=== PATIENT | female | born 1950 | race Caucasian/White ===

== ENCOUNTER → 2017-04-06 | Outpatient (CLI) | payer MEDICARE ==
[~2017-04-06] MED LIST: ALBU17I INH; COMBAER INH; DUONI NEB; FLUTI110I INH; PROM25TA5 PO
[2017-04-06 09:11] LABS: BLOOD GAS BASE EXCESS 3.4 mmol/L (-2-2); BLOOD GAS CARBOXYHEMOGLOBIN 3.8 % (0-4); BLOOD GAS HCO3 27 mmol/L (22-26); BLOOD GAS METHEMOGLOBIN 1.1 % (0-2); BLOOD GAS O2 HGB SATURATION 92 % (90-100); BLOOD GAS OXYGEN CONTENT 18.8 Vol % (12.0-20.0); BLOOD GAS PCO2 39 mmHG (38-42); BLOOD GAS PO2 85 mmHG (61-120); BLOOD GAS TOTAL HGB 14.4 G/DL (12.0-16.0); CRITICAL VALUE NO; DRAW SITE LT RADIAL; FIO2 21 %; NUMBER OF ARTERIAL PUNCTURES 1; STAT NO; TEMP CORR TO 98.6; ULNAR PULSE PRESENT
--- NOTE | 2017-04-10 10:36 | RSPPFT ---
DATE OF PROCEDURE: 04/06/17 COMMENTS: Spirometry shows FVC of 1.6 at 51% of predicted, FEV1 of 0.5 at 20%, FEV1/FVC ratio is decreased. Flow is decreased at FEF 25, FEF 50, FEF 75 and FEF 25-75. There is a paradoxical response after bronchodilator treatment. Lung volumes show residual volume is decreased. TLC is decreased. Diffusion capacity is severely decreased. Flow volume indicates an obstructive pattern. Room air arterial blood gases show pH of 7.4, PCO2 of 79, PO2 of 85, BiCarb of 27, O2 Saturation at 92%. IMPRESSION: 1. Severe obstructive lung disease. 2. Paradoxical response to bronchodilator treatment. 3. Decreased lung volumes indicating addition mild restrictive lung disease. 4. Severe loss in diffusion capacity. 5. Blood gases show normal oxygenation on room air.
== END ==
LOC: PHRSP 08:33
PROVIDERS: ATTEND Specialist
DX: J44.9 Chronic obstructive pulmonary disease, unspecified (principal)
CPT/HCPCS: 36600; 82805; 94060; 94729

== ENCOUNTER 2017-06-13 15:50 | Inpatient (IN) | payer MEDICARE ==
[~2017-06-13] VITALS: Ht 167.6 cm; Wt 73.6 kg
[2017-06-13 15:54] VITALS: BP 155/82; PULSE 133; RESP 18; TEMP 98.1; O2SAT 98
[2017-06-13 18:08] LABS: AUTOMATED NEUTROPHIL # 14.9 TH/MM3 (1.8-7.7); BASOPHIL % 0.2 % (0.0-2.0); HEMATOCRIT 43.3 % (35.0-46.0); HEMOGLOBIN 14.8 GM/DL (11.6-15.3); LYMPH % 3.8 % (9.0-44.0); LYMPHOCYTE # 0.6 TH/MM3 (1.0-4.8); MEAN CELL VOLUME 89.3 FL (80.0-100.0); MEAN CORPUSCULAR HEMOGLOBIN 30.6 PG (27.0-34.0); MEAN CORPUSCULAR HGB CONC 34.2 % (32.0-36.0); MEAN PLATELET VOLUME 7.2 FL (7.0-11.0); MONO % 4.3 % (0.0-8.0); MONOCYTE # 0.7 TH/MM3 (0-0.9); NEUT % 91.7 % (16.0-70.0); PLATELET COUNT 267 TH/MM3 (150-450); RED BLOOD COUNT 4.84 MIL/MM3 (4.00-5.30); RED CELL DISTRIBUTION WIDTH 14.8 % (11.6-17.2); WHITE BLOOD COUNT 16.2 TH/MM3 (4.0-11.0)
[2017-06-13 18:26] LABS: PROTHROMBIN TIME - PATIENT 9.7 SEC (9.8-11.6)
[2017-06-13 18:34] LABS: AST (GOT) 13 U/L (15-37); BICARBONATE 26.3 MEQ/L (21.0-32.0); BLOOD UREA NITROGEN 32 MG/DL (7-18); CALCIUM 8.9 MG/DL (8.5-10.1); CHLORIDE 103 MEQ/L (98-107); CREATININE 0.84 MG/DL (0.50-1.00); GLOMERULAR FILTRATION RATE 68 ML/MIN (>89); GLUCOSE,RANDOM 249 MG/DL (74-106); SODIUM (NA) 137 MEQ/L (136-145)
[2017-06-13 18:35] LABS: ALT (GPT) 29 U/L (10-53)
[2017-06-13 18:37] LABS: ALKALINE PHOSPHATASE 99 U/L (45-117); TOTAL BILIRUBIN ADULT 0.4 MG/DL (0.2-1.0); TOTAL PROTEIN 6.6 GM/DL (6.4-8.2)
[2017-06-13 19:01] LABS: BANDS 5 % (0-6); LYMPHOCYTES 5 % (9-44); METAMYELOCYTES 1 % (0-1); MONOCYTES 6 % (0-8); MYELOCYTES 1 % (0-0); NEUTROPHIL # MANUAL DIFF 14.4 TH/MM3 (1.8-7.7); POLYS (SEG NEUTROPHILS) 82 % (16-70)
[2017-06-13 19:03] LABS: ACANTHOCYTES OCC (NORMAL)
[2017-06-13] MEDS ORDERED: IPRAAER INH (19:17)
[2017-06-13] MEDS ORDERED: SYMB80AE INH (19:17)
[2017-06-13] MEDS ORDERED: PRED20 PO (19:17)
[2017-06-13] MEDS ORDERED: PENI250T PO (19:31)
[2017-06-13] MEDS ORDERED: SODIUM CHLOR 0.9% 1000 ML INJ 1,000 ML IV ONE (20:00)
[2017-06-13] MEDS ORDERED: KETOROLAC TROMETHAMINE 30 MG/ML (IVP) VIAL IV PUSH ONE (20:00)
--- NOTE | 2017-06-13 20:01 | PD ---
HPI Chief Complaint: Skin Problem Time Seen by Provider: 19:39 Travel History International Travel<30 days: No Contact w/Intl Traveler<30days: No Traveled to known affect area: No History of Present Illness HPI 66-year-old female with PMH of A. fib, COPD presents to the ED for evaluation of 3 day history of increased pain, redness, foul smell of chronic wounds of her right lower leg. She states that she had 2 large blisters in the area that popped about 2 months ago. She denies fever, chills, nausea, vomiting, numbness , tingling, weakness, limitations to range of motion of the extremity. She denies history of MRSA. She endorses history of long-term prednisone use. She states that the PA at her primary care's office has been helping her to take care of them. She had an appointment with wound care nurses today who advised her to come to the ED. PFSH Past Medical History Asthma: Yes Atrial Fibrillation: Yes Autoimmune Disease: No Cancer: Yes (lumpectmy 1993 right breast) Cardiovascular Problems: No Chemotherapy: Yes (1993) COPD: Yes Diminished Hearing: No Endocrine: No Genitourinary: Yes Kidney Stones: Yes Musculoskeletal: No Neurologic: No Reproductive: No Respiratory: Yes Radiation Therapy: Yes Tetanus Vaccination: > 5 Years Influenza Vaccination: No ?: Not Menopausal: Yes : 3 Para: 2 Miscarriage: 1 Tubal Ligation: Yes (1977) Past Surgical History Abdominal Surgery: Yes (BOWEL OBSTRUCTION-RESECTION R/T ADHESIONS/SCAR TISSUE) Appendectomy: Yes Gynecologic Surgery: Yes (RIGHT BREAST LUMPECTOMY 1995 ) Oral Surgery: Yes (TONSILLECTOMY ) Other Surgery: Yes (Bowel resection 2007) Social History Alcohol Use: No Tobacco Use: Yes (5 per day) Substance Use: No Allergies-Medications (Allergen,Severity, Reaction): Coded Allergies: codeine (Verified Allergy, Severe, 06/13/17) morphine (Unverified Allergy, Severe, Anaphylaxis, 01/04/17) sulfamethoxazole (Verified Allergy, Severe, 06/13/17) trimethoprim (Verified Allergy, Severe, 06/13/17) Reported Meds & Prescriptions Reported Meds & Active Scripts Active Reported Penicillin V Potassium 250 Mg Tab 250 Mg PO Q8H Prednisone 20 Mg Tab 20 Mg PO BID Symbicort Inh (Budesonide/Formoterol Fumarate) 80-4.5 Mcg/Act Aero 2 Puff INH Q12HR Combivent Respimat Inh (Ipratropium-Albuterol Inh) 20-100 Residential/Act Aero 1 Puff INH QID Review of Systems Except as stated in HPI: all other systems reviewed are Neg Physical Exam Narrative GENERAL: Well-nourished, well-developed white female in no acute distress. SKIN: Focused skin assessment warm/dry. There is chronic edema and skin changes in the bilateral lower extremities. 2 x 8+ centimeter wounds of the right lower leg that are tender, erythematous, foul smelling, draining serosanguineous and purulent fluid. The central areas of both wounds are necrotic. HEAD: Normocephalic. EYES: No scleral icterus. No injection or drainage. NECK: Supple, trachea midline. No JVD or lymphadenopathy. CARDIOVASCULAR: Irregularly irregular rate and rhythm without murmurs, gallops, or rubs. RESPIRATORY: Breath sounds equal bilaterally. Mild end expiratory wheezing bilaterally. No accessory muscle use. GASTROINTESTINAL: Abdomen soft, non-tender, nondistended. MUSCULOSKELETAL: No cyanosis, or edema. Dopplerable DP and PT pulses in the lower extremities bilaterally. BACK: Nontender without obvious deformity. No CVA tenderness. Data Data Last Documented VS Vital Signs Date Time Temp Pulse Resp B/P (MAP) Pulse Ox O2 Delivery O2 Flow Rate FiO2 06/13/17 15:54 98.1 133 18 155/82 (106) 98 Room Air Orders Orders Electrocardiogram (06/13/17 ) Complete Blood Count With Diff (06/13/17 16:13) Comprehensive Metabolic Panel (06/13/17 16:13) Act Partial Throm Time (Ptt) (06/13/17 16:13) Prothrombin Time / Inr (Pt) (06/13/17 16:13) Sepsis Workup Initiated (06/13/17 ) Lactic Acid Sepsis Protocol (06/13/17 19:57) Blood Culture (06/13/17 19:57) Wound Culture And Gram Stain (06/13/17 19:57) Blood Glucose (06/13/17 19:57) Ecg Monitoring (06/13/17 19:57) Iv Access Insert/Monitor (06/13/17 19:57) Oximetry (06/13/17 19:57) Sodium Chlor 0.9% 1000 Ml Inj (Ns 1000 M (06/13/17 20:00) Ketorolac Inj (Toradol Inj) (06/13/17 20:00) Piperacil-Tazo 4.5 Gm Premix (Zosyn 4.5 (06/13/17 20:13) Vancomycin Inj (Vancomycin Inj) (06/13/17 20:13) Consult General Surgery (06/13/17 ) Admit Order (Ed Use Only) (06/13/17 20:17) Labs Laboratory Tests Test 06/13/17 17:41 White Blood Count 16.2 TH/MM3 Red Blood Count 4.84 MIL/MM3 Hemoglobin 14.8 GM/DL Hematocrit 43.3 % Mean Corpuscular Volume 89.3 FL Mean Corpuscular Hemoglobin 30.6 PG Mean Corpuscular Hemoglobin Concent 34.2 % Red Cell Distribution Width 14.8 % Platelet Count 267 TH/MM3 Mean Platelet Volume 7.2 FL Neutrophils (%) (Auto) 91.7 % Lymphocytes (%) (Auto) 3.8 % Monocytes (%) (Auto) 4.3 % Eosinophils (%) (Auto) 0.0 % Basophils (%) (Auto) 0.2 % Neutrophils # (Auto) 14.9 TH/MM3 Lymphocytes # (Auto) 0.6 TH/MM3 Monocytes # (Auto) 0.7 TH/MM3 Eosinophils # (Auto) 0.0 TH/MM3 Basophils # (Auto) 0.0 TH/MM3 CBC Comment AUTO DIFF Differential Total Cells Counted 100 Neutrophils % (Manual) 82 % Band Neutrophils % 5 % Lymphocytes % 5 % Monocytes % 6 % Neutrophils # (Manual) 14.4 TH/MM3 Metamyelocytes 1 % Myelocytes 1 % Differential Comment FINAL DIFF MANUAL Platelet Estimate NORMAL Platelet Morphology Comment NORMAL Acanthocytes OCC Prothrombin Time 9.7 SEC Prothromb Time International Ratio 1.0 RATIO Activated Partial Thromboplast Time 20.8 SEC Blood Urea Nitrogen 32 MG/DL Creatinine 0.84 MG/DL Random Glucose 249 MG/DL Total Protein 6.6 GM/DL Albumin 3.0 GM/DL Calcium Level 8.9 MG/DL Alkaline Phosphatase 99 U/L Aspartate Amino Transf (AST/SGOT) 13 U/L Alanine Aminotransferase (ALT/SGPT) 29 U/L Total Bilirubin 0.4 MG/DL Sodium Level 137 MEQ/L Potassium Level 4.8 MEQ/L Chloride Level 103 MEQ/L Carbon Dioxide Level 26.3 MEQ/L Anion Gap 8 MEQ/L Estimat Glomerular Filtration Rate 68 ML/MIN MDM Medical Decision Making Medical Screen Exam Complete: Yes Emergency Medical Condition: Yes Differential Diagnosis Cellulitis versus abscess versus osteomyelitis versus sepsis versus other Narrative Course 66-year-old female with PMH of A. fib, COPD presents to the ED for evaluation of 3 day history of increased pain, redness, foul smell of chronic wounds of her right lower leg. She states that she had 2 large blisters in the area that popped about 2 months ago. She suspects this may be secondary to long-term prednisone use. She denies history of MRSA. She is been being followed by the PA at her primary care's office but follow wound care nurse today who advised her to come to the ED. Patient's tachycardic on presentation. Physical exam reveals 2 large necrotic wounds of the right lower extremity. There are erythematous, tender, foul smelling, weeping purulent and serosanguineous fluid. Patient has dopplerable DP and PT pulses bilaterally. Additionally the patient has tight breath sounds with diffuse wheezing in all lung farrell. Patient was administered IV Solu-Medrol and DuoNeb 3. Blood cultures and wound cultures were obtained The patient was administered IV vancomycin and Zosyn. Gen. surgery consult was placed. CBC reveals a leukocytosis of 16.2 with a left shift. BUN 32, creatinine 84. Lactic acid 1.8. I spoke with Dr. Blank. He evaluated the patient in the ED. He agrees to accept the patient to the medicine service under Dr. Eason. I discussed this plan with the patient and her who are agreeable. Please see medicine notes for disposition. Taty Whyte Jun 13, 2017 20:01
[2017-06-13] MEDS ORDERED: VANCOMYCIN INJ 1,000 MG in SODIUM CHLOR 0.9% 250 ML INJ 250 ML IV STA (20:13)
[2017-06-13] MEDS ORDERED: PIPERACIL-TAZO 4.5 GM PREMIX 100 ML IV STA (20:13)
[2017-06-13] MEDS ORDERED: SODIUM CHLOR 0.9% 1000 ML INJ 1,000 ML IV SCH (20:30)
[2017-06-13] MEDS ORDERED: DIPHTH/TETANUS/ACEL PERTUSSIS (BOOSTER) 0.5 ML VIAL/PFS IM ONE (20:30)
[2017-06-13] MEDS ORDERED: Vancomycin Consult Pharmacy 1 EA OTHER SCH (20:30)
[2017-06-13] MEDS ORDERED: methylPREDNISolone SOD SUCC 125 MG/2 ML VIAL IV PUSH ONE (20:45)
[2017-06-13] MEDS: RESP: ALBUTEROL 2.5 MG/IPRATROPIUM 0.5 MG NEB (SCH) INH (20:52)
[2017-06-13 20:58] VITALS: O2SAT 97
[2017-06-13] MEDS ORDERED: GLUCAGON 1 MG/ML VIAL OTHER PRN (21:00)
[2017-06-13] MEDS ORDERED: DEXTROSE 50% IN WATER 50 ML VIAL(D50) IV PUSH PRN (21:00)
[2017-06-13] MEDS: REMOVE OLD PATCH T-DERMAL SCH (21:00)
--- NOTE | 2017-06-13 21:09 | EKG ---
Date Performed: 06/13/2017 Time Performed: 17:47:17 PTAGE: 66 years EKG: SINUS TACHYCARDIA BORDERLINE LEFT AXIS DEVIATION ABNORMAL RHYTHM ECG PREVIOUS TRACING : 05/29/2013 16.52 Since previous tracing rate faster DOCTOR: Mag Barbosa Interpretating Date/Time 06/13/2017 21:07:41
[2017-06-13] MEDS: RESP: ALBUTEROL 2.5 MG/IPRATROPIUM 0.5 MG NEB (SCH) NEB (21:18)
--- NOTE | 2017-06-13 21:26 | RADRPT ---
EXAM DATE/TIME: 06/13/2017 20:40 [facility] COMPARISON: No previous studies available for comparison. INDICATIONS : Right leg wound. Possible ulcer on lateral side. MEDICAL HISTORY : Chronic obstructive pulmonary disease. A-fib. Hx breast cancer. SURGICAL HISTORY : Tonsillectomy. Appendectomy. Bowel resection. Right breast lumpectomy. ENCOUNTER: Initial ACUITY: 1 month PAIN SCORE: 10/10 LOCATION: Right lower leg. FINDINGS: Two view examination of the right tibia demonstrates no evidence of fracture or dislocation. Bony mi neralization is normal. The soft tissue structures are ulcerated laterally CONCLUSION: 1. Ulceration at the lateral leg with soft tissue swelling. No bony abnormality. Kostas Rosado MD on June 13, 2017 at 21:23 Board Certified Radiologist. This report was verified electronically.
--- NOTE | 2017-06-13 21:28 | RADRPT ---
EXAM DATE/TIME: 06/13/2017 20:37 [facility] COMPARISON: No previous studies available for comparison. INDICATIONS : Evaluate for pneumonia, pneumothorax and communicable diseases. Pre-op for right leg surgery. MEDICAL HISTORY : Chronic obstructive pulmonary disease. A-fib. Hx of breast cancer. SURGICAL HISTORY : Tonsillectomy. Appendectomy. Bowel resection. Right breast lumpectomy. ENCOUNTER: Initial ACUITY: 1 day PAIN SCORE: 0/10 LOCATION: Bilateral chest FINDINGS: PA and lateral views of the chest demonstrate the lungs to be symmetrically aerated without evidence of mass, infiltrate or effusion. The cardiomediastinal contours are unremarkable. Osseous structure s are intact. CONCLUSION: 1. Mild hyperinflation. No active disease. Kostas Rosado MD on June 13, 2017 at 21:25 Board Certified Radiologist. This report was verified electronically.
[2017-06-13] MEDS: INSULIN ASPART SUPPLEMENTAL SCALE SQ SCH (21:49)
--- NOTE | 2017-06-13 21:54 | HHI.HP ---
HPI Service [facility] Hospitalists Primary Care Physician Paola Monzon MD Admission Diagnosis cellulitis, necrosis right lower leg Chief Complaint: RLE chronic wound with malodorous d/c, directed to ER by wound care nurse Travel History International Travel<30 Days: No Contact w/Intl Traveler <30 Da: No Traveled to Known Affected Are: No History of Present Illness 66-year-old female with PMH of COPD presents to the ED for evaluation of 3 day history of increased pain, redness, foul smell of chronic wounds of her right lower leg. She states that she had 2 large blisters in the area that popped about 2 months ago, right after Thanksgiving. She is not sure of the etiology of the blisters and subsequent wound but wound has progressively worsened and over the last few days and began to have a foul-smelling discharge. She reports that she was seen by wound care nurse today at [facility] and directed to the ER for likely surgical intervention given the size and severity of the wound. She denies fever, chills, nausea, vomiting, numbness, tingling, weakness, limitations to range of motion of the extremity. She denies history of MRSA. She endorses history of long-term prednisone use regarding COPD and is currently down to 20 mg per day, but reportedly wasn't much higher doses. She reportedly had been seeing a provider at her primary care physician's office regarding the wounds. Review of Systems Constitutional: COMPLAINS OF: Fatigue, DENIES: Diaphoretic episodes, Fever, Weight gain, Weight loss, Chills, Dizziness, Change in appetite, Night Sweats Eyes: DENIES: Blurred vision, Diplopia, Eye inflammation, Eye pain, Vision loss , Photosensitivity, Double Vision Ears, nose, mouth, throat: DENIES: Tinnitus, Hearing loss, Vertigo, Nasal discharge, Oral lesions, Throat pain, Hoarseness, Ear Pain, Running Nose, Epistaxis, Sinus Pain, Toothache, Odynophagia Respiratory: COMPLAINS OF: Wheezing, Sputum production, Shortness of breath, DENIES: Apneas, Cough, Snoring, Hemoptysis Cardiovascular: COMPLAINS OF: Lower Extremity Edema, DENIES: Chest pain, Palpitations, Syncope, Dyspnea on Exertion, PND, Orthopnea, Claudication Gastrointestinal: DENIES: Abdominal pain, Black stools, Bloody stools, BRB per rectum, Constipation, Diarrhea, GERD, Nausea, Reflux, Vomiting, Difficulty Swallowing, Anorexia, See HPI Musculoskeletal: COMPLAINS OF: Joint pain, Back pain Integumentary: COMPLAINS OF: Abnormal pigmentation, Rash Immunologic/allergic: DENIES: Eczema, Urticaria Neurologic: COMPLAINS OF: Abnormal gait, DENIES: Headache, Localized weakness, Paresthesias, Seizures, Speech Problems, Tremor, Poor Balance Psychiatric: COMPLAINS OF: Anxiety Other Large right lower extremity wound Past Family Social History Past Medical History COPD, asthma Long-term tobacco use History of bowel obstruction Questionable diabetes History of breast cancer Past Surgical History Right breast lumpectomy with subsequent radiation therapy 1995 Partial colon resection due to obstruction Reported Medications Penicillin V Potassium 250 Mg Tab 250 Mg PO Q8H Prednisone 20 Mg Tab 20 Mg PO daily Symbicort Inh (Budesonide/Formoterol Fumarate) 80-4.5 Mcg/Act Aero 2 Puff INH Q12HR Combivent Respimat Inh (Ipratropium-Albuterol Inh) 20-100 Prison/Act Aero 1 Puff INH QID Allergies: Coded Allergies: codeine (Verified Allergy, Severe, 06/13/17) morphine (Unverified Allergy, Severe, Anaphylaxis, 01/04/17) sulfamethoxazole (Verified Allergy, Severe, 06/13/17) trimethoprim (Verified Allergy, Severe, 06/13/17) Family History Father of coronary artery disease Mother at an old age but was a "hypochondriac. Social History She currently smokes 5-6 cigarettes per day but has smoked up to one pack per day in the past. She has smoked cigarettes for over 45 years. 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 Physical Exam Vital Signs Vital Signs Date Time Temp Pulse Resp B/P (MAP) Pulse Ox O2 Delivery O2 Flow Rate FiO2 06/13/17 21:18 06/13/17 15:54 98.1 133 18 155/82 (106) 98 Room Air Physical Exam GENERAL: This is a well-nourished, somewhat disheveled, well-developed patient, in no apparent distress. Quite pleasant and jovial. SKIN: Bilateral lower extremities with injection and erythema worse on the right than the left. Left [place] with posttraumatic scar was well healed wound. Right lateral calf with large open wound and central necrosis with foul- smelling exudative discharge and surrounding sloughing of skin. HEAD: Atraumatic. Normocephalic. No temporal or scalp tenderness. EYES: Pupils equal round and reactive. Extraocular motions intact. No scleral icterus. No injection or drainage. ENT: Nose without bleeding, purulent drainage or septal hematoma. Airway patent. NECK: Trachea midline. No JVD or lymphadenopathy. Supple, nontender, no meningeal signs. CARDIOVASCULAR: Regular rate and rhythm without murmurs, gallops, or rubs. RESPIRATORY: Few coarse breath sounds in bases, expiratory wheezes throughout. Fair air movement. GASTROINTESTINAL: Abdomen soft, non-tender, nondistended. No hepato-splenomegaly , or palpable masses. No guarding. MUSCULOSKELETAL: Palpable pulses in bilateral distal lower extremities. 2+ edema bilateral distal lower extremities up to upper one third of [place] bilaterally. No calf tenderness. NEUROLOGICAL: Awake and alert. Cranial nerves II through XII intact. Motor and sensory grossly within normal limits. Five out of 5 muscle strength in all muscle groups. Normal speech. Laboratory Laboratory Tests Test 06/13/17 17:41 06/13/17 20:35 White Blood Count 16.2 Red Blood Count 4.84 Hemoglobin 14.8 Hematocrit 43.3 Mean Corpuscular Volume 89.3 Mean Corpuscular Hemoglobin 30.6 Mean Corpuscular Hemoglobin Concent 34.2 Red Cell Distribution Width 14.8 Platelet Count 267 Mean Platelet Volume 7.2 Neutrophils (%) (Auto) 91.7 Lymphocytes (%) (Auto) 3.8 Monocytes (%) (Auto) 4.3 Eosinophils (%) (Auto) 0.0 Basophils (%) (Auto) 0.2 Neutrophils # (Auto) 14.9 Lymphocytes # (Auto) 0.6 Monocytes # (Auto) 0.7 Eosinophils # (Auto) 0.0 Basophils # (Auto) 0.0 CBC Comment AUTO DIFF Differential Total Cells Counted 100 Neutrophils % (Manual) 82 Band Neutrophils % 5 Lymphocytes % 5 Monocytes % 6 Neutrophils # (Manual) 14.4 Metamyelocytes 1 Myelocytes 1 Differential Comment FINAL DIFF MANUAL Platelet Estimate NORMAL Platelet Morphology Comment NORMAL Acanthocytes OCC Prothrombin Time 9.7 Prothromb Time International Ratio 1.0 Activated Partial Thromboplast Time 20.8 Blood Urea Nitrogen 32 Creatinine 0.84 Random Glucose 249 Total Protein 6.6 Albumin 3.0 Calcium Level 8.9 Alkaline Phosphatase 99 Aspartate Amino Transf (AST/SGOT) 13 Alanine Aminotransferase (ALT/SGPT) 29 Total Bilirubin 0.4 Sodium Level 137 Potassium Level 4.8 Chloride Level 103 Carbon Dioxide Level 26.3 Anion Gap 8 Estimat Glomerular Filtration Rate 68 Lactic Acid Level 1.8 Date/Time Source Procedure Growth Status 06/13/17 20:35 Blood Peripheral Aerobic Blood Culture Pending Received 06/13/17 20:35 Blood Peripheral Anaerobic Blood Culture Pending Received 06/13/17 20:00 Wound Leg Gram Stain Pending Received 06/13/17 20:00 Wound Leg Wound Culture Pending Received Result Diagram: 06/13/17 1741 06/13/17 174 Caprini VTE Risk Assessment Caprini VTE Risk Assessment: Mod/High Risk (score >= 2) Caprini Risk Assessment Model Point Value = 1 Point Value = 2 Point Value = 3 Point Value = 5 Age 41-60 Minor surgery BMI > 25 kg/m2 Swollen legs Varicose veins or History of unexplained or recurrent spontaneous Oral contraceptives or hormone replacement Sepsis (< 1 month) Serious lung disease, including pneumonia (< 1 month) Abnormal pulmonary function Acute myocardial infarction Congestive heart failure (< 1 month) History of inflammatory bowel disease Medical patient at bed rest Age 61-74 Arthroscopic surgery Major open surgery (> 45 min) Laparoscopic surgery (> 45 min) Malignancy Confined to bed (> 72 hours) Immobilizing plaster cast Central venous access Age >= 75 History of VTE Family history of VTE Factor V Leiden Prothrombin [id number] Lupus anticoagulant Anticardiolipin antibodies Elevated serum homocysteine Heparin-induced thrombocytopenia Other congenital or acquired thrombophilia Stroke (< 1 month) Elective arthroplasty Hip, pelvis, or leg fracture Acute spinal cord injury (< 1 month) Prophylaxis Regimen Total Risk Factor Score Risk Level Prophylaxis Regimen 0-1 Low Early ambulation 2 Moderate Order ONE of the following: *Sequential Compression Device (SCD) *Heparin 5000 units SQ BID 3-4 Higher Order ONE of the following medications: *Heparin 5000 units SQ TID *Enoxaparin/Lovenox 40 mg SQ daily (WT < 150 kg, CrCl > 30 mL/min) *Enoxaparin/Lovenox 30 mg SQ daily (WT < 150 kg, CrCl > 10-29 mL/min) *Enoxaparin/Lovenox 30 mg SQ BID (WT < 150 kg, CrCl > 30 mL/min) AND/OR *Sequential Compression Device (SCD) 5 or more Highest Order ONE of the following medications: *Heparin 5000 units SQ TID (Preferred with Epidurals) *Enoxaparin/Lovenox 40 mg SQ daily (WT < 150 kg, CrCl > 30 mL/min) *Enoxaparin/Lovenox 30 mg SQ daily (WT < 150 kg, CrCl > 10-29 mL/min) *Enoxaparin/Lovenox 30 mg SQ BID (WT < 150 kg, CrCl > 30 mL/min) AND *Sequential Compression Device (SCD) Assessment and Plan Problem List: (1) Open leg wound ICD Codes: S81.809A - Unspecified open wound, unspecified lower leg, initial encounter Status: Chronic Plan: Patient with large, necrotic open wound right lower extremity. We'll need significant debridement and IV antibiotics. Cultures obtained and IV antibiotics initiated. General surgery consult placed. Wound care consult placed. (2) COPD (chronic obstructive pulmonary disease) ICD Codes: J44.9 - Chronic obstructive pulmonary disease, unspecified Status: Chronic Plan: DuoNeb, steroids, supplemental oxygen. Albuterol Neb as needed. 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 Will perform Accu-Cheks and place on sliding scale insulin. Check hemoglobin A1c. Code Status full Discussed Condition With Patient, her and ER provider. Physician Certification 2 Midnight Certification Type: Admission for Inpatient Services Order for Inpatient Services The services are ordered in accordance with Medicare regulations or non- Medicare payer requirements, as applicable. In the case of services not specified as inpatient-only, they are appropriately provided as inpatient services in accordance with the 2-midnight benchmark. Estimated LOS (days): 3 days is the estimated time the patient will need to remain in the hospital, assuming treatment plan goals are met and no additional complications. Post-Hospital Plan: Not yet determined Problem Qualifiers (1) Open leg wound: Qualified Codes: S81.801A - Unspecified open wound, right lower leg, initial encounter Hussein Blank MD PhD Jun 13, 2017 21:54
[2017-06-13] MEDS ORDERED: TEMAZEPAM 15 MG CAP PO PRN (22:00)
[2017-06-13 22:29] LABS: HEMOGLOBIN A1C 8.6 % (4.3-6.0)
[2017-06-13 22:47] VITALS: BP 129/77; PULSE 136; RESP 18; TEMP 98.4; O2SAT 97
[2017-06-13] MEDS ORDERED: VANCOMYCIN 1 GM/200 ML PREMIX IV ONE (23:00)
[2017-06-14] VITALS (8 sets, daily range): BP systolic 116–148; BP diastolic 73–99; PULSE 105–139; RESP 18; TEMP 97.2–98.2; O2SAT 96–98
[2017-06-14] MEDS: traMADol HCL 50 MG TAB PO PRN (01:06)
[2017-06-14] MEDS: RESP: ALBUTEROL 2.5 MG/IPRATROPIUM 0.5 MG NEB (SCH) NEB ×6 (03:01→23:08)
[2017-06-14] MEDS: PIPERACIL-TAZO 3.375 GM PREMIX 50 ML IV SCH ×3 (05:00→21:33)
[2017-06-14] MEDS: INSULIN ASPART SUPPLEMENTAL SCALE SQ SCH ×4 (08:00→22:10)
[2017-06-14] MEDS ORDERED: REMOVE OLD PATCH T-DERMAL SCH (09:00)
[2017-06-14] MEDS: predniSONE 20 MG TAB PO SCH (09:07)
[2017-06-14] MEDS: NICOTINE 14 MG/24 HR PATCH T-DERMAL SCH (09:07)
--- NOTE | 2017-06-14 09:30 | HHI.PR ---
Subjective Remarks No new complaints Pt has been afebrile She has been tachycardic overnight and states that this has been a chronic issue for some time Objective Vitals Vital Signs Date Time Temp Pulse Resp B/P (MAP) Pulse Ox O2 Delivery O2 Flow Rate FiO2 06/14/17 08:00 97.6 130 18 122/77 (92) 96 06/14/17 05:25 97.8 116 18 131/76 (94) 96 06/13/17 22:47 98.4 136 18 129/77 (94) 97 06/13/17 21:18 06/13/17 20:58 97 21 06/13/17 15:54 98.1 133 18 155/82 (106) 98 Room Air Result Diagram: 06/13/17 1741 06/13/17 1741 Other Results Laboratory Tests Test 06/13/17 17:41 06/13/17 20:35 White Blood Count 16.2 TH/MM3 Red Blood Count 4.84 MIL/MM3 Hemoglobin 14.8 GM/DL Hematocrit 43.3 % Mean Corpuscular Volume 89.3 FL Mean Corpuscular Hemoglobin 30.6 PG Mean Corpuscular Hemoglobin Concent 34.2 % Red Cell Distribution Width 14.8 % Platelet Count 267 TH/MM3 Mean Platelet Volume 7.2 FL Neutrophils (%) (Auto) 91.7 % Lymphocytes (%) (Auto) 3.8 % Monocytes (%) (Auto) 4.3 % Eosinophils (%) (Auto) 0.0 % Basophils (%) (Auto) 0.2 % Neutrophils # (Auto) 14.9 TH/MM3 Lymphocytes # (Auto) 0.6 TH/MM3 Monocytes # (Auto) 0.7 TH/MM3 Eosinophils # (Auto) 0.0 TH/MM3 Basophils # (Auto) 0.0 TH/MM3 CBC Comment AUTO DIFF Differential Total Cells Counted 100 Neutrophils % (Manual) 82 % Band Neutrophils % 5 % Lymphocytes % 5 % Monocytes % 6 % Neutrophils # (Manual) 14.4 TH/MM3 Metamyelocytes 1 % Myelocytes 1 % Differential Comment FINAL DIFF MANUAL Platelet Estimate NORMAL Platelet Morphology Comment NORMAL Acanthocytes OCC Prothrombin Time 9.7 SEC Prothromb Time International Ratio 1.0 RATIO Activated Partial Thromboplast Time 20.8 SEC Blood Urea Nitrogen 32 MG/DL Creatinine 0.84 MG/DL Random Glucose 249 MG/DL Total Protein 6.6 GM/DL Albumin 3.0 GM/DL Calcium Level 8.9 MG/DL Alkaline Phosphatase 99 U/L Aspartate Amino Transf (AST/SGOT) 13 U/L Alanine Aminotransferase (ALT/SGPT) 29 U/L Total Bilirubin 0.4 MG/DL Sodium Level 137 MEQ/L Potassium Level 4.8 MEQ/L Chloride Level 103 MEQ/L Carbon Dioxide Level 26.3 MEQ/L Anion Gap 8 MEQ/L Estimat Glomerular Filtration Rate 68 ML/MIN Hemoglobin A1c 8.6 % Lactic Acid Level 1.8 mmol/L Imaging Last Impressions Tibia/Fibula X-Ray 06/13/17 0000 Signed Impressions: Service Date/Time: Tuesday, June 13, 2017 20:40 - CONCLUSION: 1. Ulceration at the lateral leg with soft tissue swelling. No bony abnormality. Kostas Rosado MD Chest X-Ray 06/13/17 0000 Signed Impressions: Service Date/Time: Tuesday, June 13, 2017 20:37 - CONCLUSION: 1. Mild hyperinflation. No active disease. Kostas Rosado MD Objective Remarks General: NAD, AAOx3 Chest: Expiratory wheeze bilaterally Cardiac: Tachy, regular Abd: +BS, soft ND/NT Ext: 2+ Bilateral LE edema up to upper one third of [place]. Bilateral LE with erythema worse on the right than the left. Right lateral calf with large open wound and central necrosis with foul- smelling exudative discharge and surrounding sloughing of skin. A/P Problem List: (1) Open leg wound ICD Codes: S81.809A - Unspecified open wound, unspecified lower leg, initial encounter Status: Chronic Plan: LLE nonhealing wound - Patient with large, necrotic open wound right lower extremity x 2 months. - Wound was cultured in the ED - Blood cultures are pending - Pt has been started on Zosyn and Vancomycin - General Surgery has been consulted as pt may need surgical debridement - Wound care consult placed but pt will need to be seen by General Surgery likely before wound care. 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 fib but no outpt EKG in [facility] EHR COPD - PFT in 2017 with reported FEV1 of 0.51, 20% of predicted - Continue Symbicort BID and Combivent QID - Prednisone 20mg po daily has been resumed. She has been on po steroids for quite some time. She may need a dose of IV Solu-Medrol - Increase Duonebs to Q4H - Supplemental O2 as needed Hyperglycemia - Pt likely with steroid induced hyperglycemia with her prolonged steroid use - Hgb A1C is 8/6% - NovoLog SSI - Accu checks Pharmacological DVT prophylaxis is on hold for now until pt is seen by General surgery and unable to use SCDs due to LE wounds (2) COPD (chronic obstructive pulmonary disease) ICD Codes: J44.9 - Chronic obstructive pulmonary disease, unspecified Status: Chronic (3) Hyperglycemia ICD Codes: R73.9 - Hyperglycemia, unspecified Status: Acute Assessment and Plan Patient examined. Assessment and plan formulated with Yomaira Lemus PA-C. I agree with the above. bilateral lower extremity blisters evolved into deep ulcerations and necrotic infected tissue. chronic sinus tach severe copd cont abx. nebs/steroids are chronic await surgical intervention on lower exts..?debridement and vac Problem Qualifiers (1) Open leg wound: Qualified Codes: S81.801A - Unspecified open wound, right lower leg, initial encounter Yomaira Lemus Jun 14, 2017 09:30 Ellis Eason MD Jun 14, 2017 14:53
[2017-06-14 10:08] LABS: AUTOMATED NEUTROPHIL # 16.7 TH/MM3 (1.8-7.7); BASOPHIL % 0.1 % (0.0-2.0); HEMATOCRIT 40.1 % (35.0-46.0); HEMOGLOBIN 13.4 GM/DL (11.6-15.3); LYMPH % 2.4 % (9.0-44.0); LYMPHOCYTE # 0.4 TH/MM3 (1.0-4.8); MEAN CELL VOLUME 90.8 FL (80.0-100.0); MEAN CORPUSCULAR HEMOGLOBIN 30.4 PG (27.0-34.0); MEAN CORPUSCULAR HGB CONC 33.5 % (32.0-36.0); MEAN PLATELET VOLUME 7.2 FL (7.0-11.0); MONO % 3.6 % (0.0-8.0); MONOCYTE # 0.6 TH/MM3 (0-0.9); NEUT % 93.9 % (16.0-70.0); PLATELET COUNT 256 TH/MM3 (150-450); RED BLOOD COUNT 4.42 MIL/MM3 (4.00-5.30); RED CELL DISTRIBUTION WIDTH 14.7 % (11.6-17.2); WHITE BLOOD COUNT 17.8 TH/MM3 (4.0-11.0)
[2017-06-14] MEDS ORDERED: COMBIVENT RESPIMAT INH SCH (10:15)
[2017-06-14 10:38] LABS: ALBUMIN 2.7 GM/DL (3.4-5.0); AST (GOT) 7 U/L (15-37); BICARBONATE 26.3 MEQ/L (21.0-32.0); BLOOD UREA NITROGEN 36 MG/DL (7-18); CALCIUM 8.8 MG/DL (8.5-10.1); CHLORIDE 106 MEQ/L (98-107); CREATININE 1.01 MG/DL (0.50-1.00); GLOMERULAR FILTRATION RATE 55 ML/MIN (>89); GLUCOSE,RANDOM 236 MG/DL (74-106); SODIUM (NA) 140 MEQ/L (136-145)
[2017-06-14 10:39] LABS: ALT (GPT) 26 U/L (10-53)
[2017-06-14 10:41] LABS: ALKALINE PHOSPHATASE 81 U/L (45-117); TOTAL BILIRUBIN ADULT 0.6 MG/DL (0.2-1.0); TOTAL PROTEIN 6.1 GM/DL (6.4-8.2)
[2017-06-14] MEDS: BUDESONIDE-FORMOTEROL 80/4.5 MCG INHALER INH SCH ×2 (11:25→21:33)
[2017-06-14] MEDS: SODIUM CHLOR 0.9% 1000 ML INJ 1,000 ML IV SCH (15:00)
[2017-06-14] MEDS: VANCOMYCIN 1,500 MG/NS 500 ML IV SCH ×2 (17:00)
--- NOTE | 2017-06-14 17:00 | PD.CONS ---
HPI Consult Requested By Dr. Whyte Reason for Consult Foul smelling ulcer on right lower extremity Primary Care Physician Paola Monzon MD History of Present Illness This pleasant 66yo female presented to the emergency room from her wound care office due to a large area of ulceration on her right lower leg. She states the wound appeared spontaneously the day after Thanksgiving and got progressively worse over time. Her primary care physician was trying to treat it as an outpatient and she was eventually transferred to wound care. Apparently there was a mix up with paperwork and the patient was unable to see anyone in the wound clinic for 3 weeks. When she presented there yesterday she was told to come immediately to the ER for evaluation Review of Systems Constitutional: DENIES: Diaphoretic episodes, Fatigue, Fever, Weight gain, Weight loss, Chills, Dizziness, Change in appetite, Night Sweats Endocrine: DENIES: Abnorml menstrual pattern, Heat/cold intolerance, Polydipsia , Polyuria, Polyphagia Eyes: DENIES: Blurred vision, Diplopia, Eye inflammation, Eye pain, Vision loss , Photosensitivity, Double Vision Ears, nose, mouth, throat: DENIES: Tinnitus, Hearing loss, Vertigo, Nasal discharge, Oral lesions, Throat pain, Hoarseness, Ear Pain, Running Nose, Epistaxis, Sinus Pain, Toothache, Odynophagia Respiratory: COMPLAINS OF: Cough, Wheezing, Shortness of breath Cardiovascular: COMPLAINS OF: Dyspnea on Exertion, Lower Extremity Edema Gastrointestinal: DENIES: Abdominal pain, Black stools, Bloody stools, Constipation, Diarrhea, Nausea, Vomiting, Difficulty Swallowing, Anorexia Genitourinary: DENIES: Abnormal vaginal bleeding, Dysmenorrhea, Dyspareunia, Sexual dysfunction, Urinary frequency, Urinary incontinence, Urgency, Hematuria , Dysuria, Nocturia, Vaginal discharge Musculoskeletal: DENIES: Joint pain, Muscle aches, Stiffness, Joint Swelling, Back pain, Neck pain Integumentary: COMPLAINS OF: Abnormal pigmentation Hematologic/lymphatic: DENIES: Bruising, Lymphadenopathy Immunologic/allergic: DENIES: Eczema, Urticaria Neurologic: DENIES: Abnormal gait, Headache, Localized weakness, Paresthesias, Seizures, Speech Problems, Tremor, Poor Balance Psychiatric: DENIES: Anxiety, Confusion, Mood changes, Depression, Hallucinations, Agitation, Suicidal Ideation, Homicidal Ideation, Delusions Past Family Social History Past Medical History Stage IV COPD, asthma Long-term tobacco use History of bowel obstruction Questionable diabetes due to prolonged steroid use History of breast cancer Past Surgical History Right breast lumpectomy with subsequent radiation therapy 1996 Partial colon resection due to obstruction Reported Medications Penicillin V Potassium 250 Mg Tab 250 Mg PO Q8H Prednisone 20 Mg Tab 20 Mg PO daily Symbicort Inh (Budesonide/Formoterol Fumarate) 80-4.5 Mcg/Act Aero 2 Puff INH Q12HR Combivent Respimat Inh (Ipratropium-Albuterol Inh) 20-100 Fci/Act Aero 1 Puff INH QID Allergies: Coded Allergies: codeine (Verified Allergy, Severe, 06/13/17) morphine (Unverified Allergy, Severe, Anaphylaxis, 01/04/17) sulfamethoxazole (Verified Allergy, Severe, 06/13/17) trimethoprim (Verified Allergy, Severe, 06/13/17) Active Ordered Medications Current Medications Medications (Trade) Dose Ordered Sig/Ely Route Start Time Stop Time Status Last Admin (NovoLOG SUPPLEMENTAL SCALE) 1 ACHS SLIDING SCALE SQ 06/13/17 21:00 06/13/17 21:49 Pharmacy Profile Note 0 ml @ 0 mls/hr UNSCH OTHER 06/13/17 20:30 Piperacillin Sod/ Tazobactam Sod 50 ml @ 100 mls/hr Q8H IV 06/14/17 04:00 06/14/17 11:28 (Deltasone) 20 mg DAILY PO 06/14/17 09:00 06/14/17 09:07 (Albuterol Neb) 1.25 mg Q2HR NEB PRN NEB 06/13/17 20:30 (Habitrol 14 Mg Patch.24 Hr) 1 patch DAILY T-DERMAL 06/14/17 09:00 Miscellaneous Information 1 HS T-DERMAL 06/13/17 21:00 (D50w (Vial) Inj) 50 ml UNSCH PRN IV PUSH 06/13/17 21:00 (Glucagon Inj) 1 mg UNSCH PRN OTHER 06/13/17 21:00 (Zofran Inj) 4 mg Q6H PRN IV PUSH 06/13/17 22:30 (Restoril) 15 mg HS PRN PO 06/13/17 22:00 (Ultram) 50 mg Q6H PRN PO 06/14/17 01:00 06/14/17 01:06 (Symbicort 80-4.5 Mcg Inh) 2 puff Q12HR INH 06/14/17 10:30 Patient Own Medication PT OWN MED: COMBIV... QID INH 06/14/17 10:15 Future Hold (Duoneb Neb) 1 ampule Q4HR NEB NEB 06/14/17 12:00 06/14/17 13:18 Vancomycin HCl 1500 mg/Sodium Chloride 515 ml @ 257.5 mls/ hr Q24H IV 06/14/17 17:00 Miscellaneous Information SPECIFIC LAB TO BE DRAWN:VANCOMYCIN TROUGH DATE TO... ONCE ONCE .XX 06/17/17 16:45 06/17/17 16:46 (Pulmicort Respule Neb) 0.5 mg Q12HR NEB NEB 06/14/17 20:00 Sodium Chloride 1,000 ml @ 80 mls/hr [id number] IV 06/14/17 15:00 06/14/17 15:00 Family History Father of coronary artery disease Mother at an old age of unknown cause Social History She currently smokes 5-6 cigarettes per day for greater than 45 years Denies any alcohol or illicit drug use Retired [employer] in August of last year Physical Exam Vital Signs Vital Signs Date Time Temp Pulse Resp B/P (MAP) Pulse Ox O2 Delivery O2 Flow Rate FiO2 06/14/17 15:19 97.2 106 18 116/73 (87) 96 06/14/17 12:24 109 06/14/17 11:56 98.2 105 18 148/99 (115) 98 06/14/17 09:30 97 06/14/17 08:00 97.6 130 18 122/77 (92) 96 06/14/17 05:25 97.8 116 18 131/76 (94) 96 06/13/17 22:47 98.4 136 18 129/77 (94) 97 06/13/17 21:18 06/13/17 20:58 97 21 Physical Exam GENERAL: In no acute distress CARDIOVASCULAR: Tachy on monitor with regular rhythm MUSCULOSKELETAL: Bilateral lower extremities with discoloration (questionable vascular disease). Pulses by doppler. Right lower leg with large areas of wet gangrenous tissue NEUROLOGICAL: Awake and alert. No obvious cranial nerve deficits. PSYCHIATRIC: Appropriate mood and affect; insight and judgment normal. Laboratory Laboratory Tests Test 06/13/17 17:41 06/13/17 20:35 06/14/17 09:18 White Blood Count 16.2 17.8 Red Blood Count 4.84 4.42 Hemoglobin 14.8 13.4 Hematocrit 43.3 40.1 Mean Corpuscular Volume 89.3 90.8 Mean Corpuscular Hemoglobin 30.6 30.4 Mean Corpuscular Hemoglobin Concent 34.2 33.5 Red Cell Distribution Width 14.8 14.7 Platelet Count 267 256 Mean Platelet Volume 7.2 7.2 Neutrophils (%) (Auto) 91.7 93.9 Lymphocytes (%) (Auto) 3.8 2.4 Monocytes (%) (Auto) 4.3 3.6 Eosinophils (%) (Auto) 0.0 0.0 Basophils (%) (Auto) 0.2 0.1 Neutrophils # (Auto) 14.9 16.7 Lymphocytes # (Auto) 0.6 0.4 Monocytes # (Auto) 0.7 0.6 Eosinophils # (Auto) 0.0 0.0 Basophils # (Auto) 0.0 0.0 CBC Comment AUTO DIFF DIFF FINAL Differential Total Cells Counted 100 Neutrophils % (Manual) 82 Band Neutrophils % 5 Lymphocytes % 5 Monocytes % 6 Neutrophils # (Manual) 14.4 Metamyelocytes 1 Myelocytes 1 Differential Comment FINAL DIFF MANUAL Platelet Estimate NORMAL Platelet Morphology Comment NORMAL Acanthocytes OCC Prothrombin Time 9.7 Prothromb Time International Ratio 1.0 Activated Partial Thromboplast Time 20.8 Blood Urea Nitrogen 32 36 Creatinine 0.84 1.01 Random Glucose 249 236 Total Protein 6.6 6.1 Albumin 3.0 2.7 Calcium Level 8.9 8.8 Alkaline Phosphatase 99 81 Aspartate Amino Transf (AST/SGOT) 13 7 Alanine Aminotransferase (ALT/SGPT) 29 26 Total Bilirubin 0.4 0.6 Sodium Level 137 140 Potassium Level 4.8 4.6 Chloride Level 103 106 Carbon Dioxide Level 26.3 26.3 Anion Gap 8 8 Estimat Glomerular Filtration Rate 68 55 Hemoglobin A1c 8.6 Lactic Acid Level 1.8 Date/Time Source Procedure Growth Status 06/13/17 20:35 Blood Peripheral Aerobic Blood Culture - Preliminary NO GROWTH IN 1 DAY Resulted 06/13/17 20:35 Blood Peripheral Anaerobic Blood Culture - Preliminary NO GROWTH IN 1 DAY Resulted 06/13/17 20:00 Wound Leg Gram Stain - Final Resulted 06/13/17 20:00 Wound Culture - Preliminary Gram Negative Leonel Resulted Result Diagram: 06/14/1718 06/14/17 0918 Imaging Last Impressions Tibia/Fibula X-Ray 06/13/17 0000 Signed Impressions: Service Date/Time: Tuesday, June 13, 2017 20:40 - CONCLUSION: 1. Ulceration at the lateral leg with soft tissue swelling. No bony abnormality. Kostas Rosado MD Chest X-Ray 06/13/17 0000 Signed Impressions: Service Date/Time: Tuesday, June 13, 2017 20:37 - CONCLUSION: 1. Mild hyperinflation. No active disease. Kostas Rosado MD Assessment and Plan Assessment and Plan 66yo F with infected ulcerations on right lower extremity -Will take to the OR for debridement tomorrow. Will most likely need wound vac placement. Patient was informed that if the tissue survies she would have a long convalesce -NPO after might This patient was examined by myself and Dr. Clark and this note was written on his behalf The exam, history, and the medical decision-making described in the above note were completed with the assistance of the mid-level provider. I reviewed and agree with the findings presented. I attest that I had a [id number] encounter with the patient on the same day, and personally performed and documented my assessment and findings in the medical record. Juany Boogie Jun 14, 2017 17:00 Peter Clark MD Jul 04, 2017 19:42
[2017-06-14] MEDS ORDERED: SODIUM CHLORID 0.9% 500 ML IV PRN (18:30)
[2017-06-14] MEDS ORDERED: POVIDONE IODINE 5% (ANTISEPSIS KIT) 4 APPLICATIONS EACH NARE PRN (18:30)
[2017-06-14] MEDS ORDERED: LACTATED RINGER'S 1000 ML IV PRN (18:30)
[2017-06-14] MEDS ORDERED: CHLORHEXIDINE GLUCONATE 2 % 1 PACK (2 CLOTHS) TOPICAL PRN (18:30)
[2017-06-14] MEDS ORDERED: METOPROLOL TARTRATE 25 MG TAB PO PRN (18:30)
[2017-06-14] MEDS ORDERED: INSULIN HUMAN REGULAR 1,000 UNITS/10 ML VIAL SQ PRN (18:30)
[2017-06-14] MEDS: RESP: BUDESONIDE 0.5 MG/2 ML NEB NEB SCH (19:34)
[2017-06-14] MEDS: REMOVE OLD PATCH T-DERMAL SCH (21:00)
[2017-06-15] VITALS (7 sets, daily range): BP systolic 130–152; BP diastolic 74–85; PULSE 95–123; RESP 17–21; TEMP 95.2–98.5; O2SAT 96
[2017-06-15] MEDS: traMADol HCL 50 MG TAB PO PRN ×2 (00:08→21:43)
[2017-06-15] MEDS: RESP: ALBUTEROL 2.5 MG/IPRATROPIUM 0.5 MG NEB (SCH) NEB ×5 (04:20→20:00)
[2017-06-15] MEDS: PIPERACIL-TAZO 3.375 GM PREMIX 50 ML IV SCH ×3 (04:33→20:10)
[2017-06-15] MEDS: RESP: BUDESONIDE 0.5 MG/2 ML NEB NEB SCH ×2 (07:49→20:00)
[2017-06-15] MEDS: SODIUM CHLOR 0.9% 1000 ML INJ 1,000 ML IV SCH ×2 (07:55→20:45)
[2017-06-15] MEDS: INSULIN ASPART SUPPLEMENTAL SCALE SQ SCH ×4 (07:55→20:47)
[2017-06-15] MEDS: BUDESONIDE-FORMOTEROL 80/4.5 MCG INHALER INH SCH ×2 (07:56→20:42)
[2017-06-15] MEDS: predniSONE 20 MG TAB PO SCH (07:57)
[2017-06-15] MEDS: NICOTINE 14 MG/24 HR PATCH T-DERMAL SCH (07:57)
--- NOTE | 2017-06-15 09:06 | HHI.PR ---
Subjective Remarks Pt is anxious this morning about surgery She did not sleep well last night. Still with some wheezing Afebrile Objective Vitals Vital Signs Date Time Temp Pulse Resp B/P (MAP) Pulse Ox O2 Delivery O2 Flow Rate FiO2 06/15/17 07:50 96 06/15/17 07:40 97.9 107 21 152/74 (100) 96 06/15/17 04:15 99 06/15/17 03:56 98.5 109 18 152/80 (104) 96 06/15/17 01:09 15 06/15/17 00:45 123 06/14/17 23:58 97.8 139 18 128/89 (102) 97 06/14/17 19:38 98 21 06/14/17 15:19 97.2 106 18 116/73 (87) 96 06/14/17 12:24 109 06/14/17 11:56 98.2 105 18 148/99 (115) 98 06/14/17 09:30 97 Result Diagram: 06/14/17 0918 06/14/17 0918 Other Results Laboratory Tests Test 06/13/17 17:41 06/13/17 20:35 06/14/17 09:18 White Blood Count 16.2 TH/MM3 17.8 TH/MM3 Red Blood Count 4.84 MIL/MM3 4.42 MIL/MM3 Hemoglobin 14.8 GM/DL 13.4 GM/DL Hematocrit 43.3 % 40.1 % Mean Corpuscular Volume 89.3 FL 90.8 FL Mean Corpuscular Hemoglobin 30.6 PG 30.4 PG Mean Corpuscular Hemoglobin Concent 34.2 % 33.5 % Red Cell Distribution Width 14.8 % 14.7 % Platelet Count 267 TH/MM3 256 TH/MM3 Mean Platelet Volume 7.2 FL 7.2 FL Neutrophils (%) (Auto) 91.7 % 93.9 % Lymphocytes (%) (Auto) 3.8 % 2.4 % Monocytes (%) (Auto) 4.3 % 3.6 % Eosinophils (%) (Auto) 0.0 % 0.0 % Basophils (%) (Auto) 0.2 % 0.1 % Neutrophils # (Auto) 14.9 TH/MM3 16.7 TH/MM3 Lymphocytes # (Auto) 0.6 TH/MM3 0.4 TH/MM3 Monocytes # (Auto) 0.7 TH/MM3 0.6 TH/MM3 Eosinophils # (Auto) 0.0 TH/MM3 0.0 TH/MM3 Basophils # (Auto) 0.0 TH/MM3 0.0 TH/MM3 CBC Comment AUTO DIFF DIFF FINAL Differential Total Cells Counted 100 Neutrophils % (Manual) 82 % Band Neutrophils % 5 % Lymphocytes % 5 % Monocytes % 6 % Neutrophils # (Manual) 14.4 TH/MM3 Metamyelocytes 1 % Myelocytes 1 % Differential Comment FINAL DIFF MANUAL Platelet Estimate NORMAL Platelet Morphology Comment NORMAL Acanthocytes OCC Prothrombin Time 9.7 SEC Prothromb Time International Ratio 1.0 RATIO Activated Partial Thromboplast Time 20.8 SEC Blood Urea Nitrogen 32 MG/DL 36 MG/DL Creatinine 0.84 MG/DL 1.01 MG/DL Random Glucose 249 MG/DL 236 MG/DL Total Protein 6.6 GM/DL 6.1 GM/DL Albumin 3.0 GM/DL 2.7 GM/DL Calcium Level 8.9 MG/DL 8.8 MG/DL Alkaline Phosphatase 99 U/L 81 U/L Aspartate Amino Transf (AST/SGOT) 13 U/L 7 U/L Alanine Aminotransferase (ALT/SGPT) 29 U/L 26 U/L Total Bilirubin 0.4 MG/DL 0.6 MG/DL Sodium Level 137 MEQ/L 140 MEQ/L Potassium Level 4.8 MEQ/L 4.6 MEQ/L Chloride Level 103 MEQ/L 106 MEQ/L Carbon Dioxide Level 26.3 MEQ/L 26.3 MEQ/L Anion Gap 8 MEQ/L 8 MEQ/L Estimat Glomerular Filtration Rate 68 ML/MIN 55 ML/MIN Hemoglobin A1c 8.6 % Lactic Acid Level 1.8 mmol/L Imaging Last Impressions Tibia/Fibula X-Ray 06/13/17 Signed Impressions: Service Date/Time: Tuesday, June 13, 2017 20:40 - CONCLUSION: 1. Ulceration at the lateral leg with soft tissue swelling. No bony abnormality. Kostas Rosado MD Chest X-Ray 06/13/17 Signed Impressions: Service Date/Time: Tuesday, June 13, 2017 20:37 - CONCLUSION: 1. Mild hyperinflation. No active disease. Kostas Rosado MD Objective Remarks General: NAD, AAOx3 Chest: Expiratory wheeze bilaterally Cardiac: Tachy, regular Abd: +BS, soft ND/NT Ext: 2+ Bilateral LE edema up to upper one third of [place]. Bilateral LE with erythema worse on the right than the left. Right lateral calf with large open wound and central necrosis with foul- smelling exudative discharge and surrounding sloughing of skin. A/P Problem List: (1) Open leg wound ICD Codes: S81.809A - Unspecified open wound, unspecified lower leg, initial encounter Status: Chronic Plan: LLE nonhealing wound - Patient with large, necrotic open wound right lower extremity x 2 months. - Wound culture growing gram negative rods - Blood cultures with no growth x 1 day - Pt has been started on Zosyn and Vancomycin - General Surgery has been consulted and pt is planned for surgical debridement today - Pain control PRN - Monitor labs daily - Supportive care Tachycardia - Outpt 2D echo (04/03/17) --> Mild concentric LVH, Estimated EF 50%, Grade 1 diastolic dysfunction, Moderate mitral valve regurg, Mild tricuspid valve regurg, Normal estimated PA pressure, 32.7mmHg - Telemetry with noted sinus tachycardia - EKG in the ED noted sinus tachycardia COPD - PFT in 2017 with reported FEV1 of 0.51, 20% of predicted - Continue Symbicort BID and Combivent QID - Pt was given a dose of IV Solu-Medrol at admission - Prednisone 20mg po daily has been resumed. She has been on po steroids for quite some time. - Duonebs to Q4H - Supplemental O2 as needed Hyperglycemia - Pt likely with steroid induced hyperglycemia with her prolonged steroid use - Hgb A1C is 8.6% - NovoLog SSI - Accu checks Pharmacological DVT prophylaxis is on hold for now until pt is seen by General surgery and unable to use SCDs due to LE wounds (2) COPD (chronic obstructive pulmonary disease) ICD Codes: J44.9 - Chronic obstructive pulmonary disease, unspecified Status: Chronic (3) Hyperglycemia ICD Codes: R73.9 - Hyperglycemia, unspecified Status: Acute Assessment and Plan Patient examined. Assessment and plan formulated with Yomaira Lemus PA-C. I agree with the above. severe rle cellulitis/ulceration/necrosis of tissue....going to OR today for debridement and pt high risk for amputation. cont therapy for copd.. updated pt/. pain controlled for now. Problem Qualifiers (1) Open leg wound: Qualified Codes: S81.801A - Unspecified open wound, right lower leg, initial encounter Yomaira Lemus Jun 15, 2017 09:06 Ellis Eason MD Jun 15, 2017 14:40
[2017-06-15 10:11] LABS: AUTOMATED NEUTROPHIL # 9.5 TH/MM3 (1.8-7.7); BASOPHIL % 0.2 % (0.0-2.0); EOSINOPHIL % 0.2 % (0.0-4.0); HEMATOCRIT 39.8 % (35.0-46.0); HEMOGLOBIN 13.2 GM/DL (11.6-15.3); LYMPH % 6.6 % (9.0-44.0); LYMPHOCYTE # 0.7 TH/MM3 (1.0-4.8); MEAN CELL VOLUME 90.1 FL (80.0-100.0); MEAN CORPUSCULAR HGB CONC 33.3 % (32.0-36.0); MEAN PLATELET VOLUME 7.1 FL (7.0-11.0); MONOCYTE # 0.8 TH/MM3 (0-0.9); PLATELET COUNT 237 TH/MM3 (150-450); RED BLOOD COUNT 4.41 MIL/MM3 (4.00-5.30); RED CELL DISTRIBUTION WIDTH 14.6 % (11.6-17.2)
[2017-06-15 10:34] LABS: BICARBONATE 24.8 MEQ/L (21.0-32.0); CREATININE 1.02 MG/DL (0.50-1.00); MAGNESIUM 2.3 MG/DL (1.5-2.5)
[2017-06-15 11:04] LABS: BANDS 8 % (0-6); LYMPHOCYTES 5 % (9-44); METAMYELOCYTES 1 % (0-1); MONOCYTES 6 % (0-8); NEUTROPHIL # MANUAL DIFF 9.8 TH/MM3 (1.8-7.7); POLYS (SEG NEUTROPHILS) 80 % (16-70)
[2017-06-15] MEDS ORDERED: PHENYLEPH/NS 1000 MCG/10 ML SYR IV ONE (12:00)
[2017-06-15] MEDS ORDERED: SODIUM CHLORIDE 0.9% 20 ML VIAL IV ONE (12:00)
[2017-06-15] MEDS ORDERED: PROPOFOL 200 MG/20 ML AMP IV ONE (12:00)
[2017-06-15] MEDS ORDERED: ESMOLOL HCL 100 MG/10 ML VIAL IV ONE (12:00)
[2017-06-15] MEDS: VANCOMYCIN 1,500 MG/NS 500 ML IV SCH ×2 (16:14)
[2017-06-15] MEDS ORDERED: GENTAMICIN SULFATE 80 MG/2 ML VIAL ONE (16:55)
[2017-06-15] MEDS ORDERED: fentaNYL CITRATE 250 MCG/5 ML AMP ONE (17:22)
[2017-06-15] MEDS ORDERED: KETAMINE HCL 500 MG/5 ML VIAL ONE (17:23)
[2017-06-15] MEDS ORDERED: MIDAZOLAM HCL 5 MG/5 ML VIAL ONE (17:24)
[2017-06-15] MEDS ORDERED: DO NOT ADM ANY ANTICOAGULANT DRUGS PRN (19:01)
[2017-06-15] MEDS ORDERED: *RESP: ALBUTEROL 2.5 MG/3 ML NEB (PRN) PERIprocedural Use ONLY NEB ONE (19:09)
[2017-06-15] MEDS ORDERED: *MEPERIDINE 25 MG INJ VIAL PERIprocedural Use ONLY ONE (19:09)
[2017-06-15] MEDS ORDERED: HYDROmorphone HCL PF 2 MG/ML VIAL ONE (19:38)
[2017-06-15] MEDS: REMOVE OLD PATCH T-DERMAL SCH (20:48)
[2017-06-15] MEDS: HYDROmorphone HCL PF 2 MG/ML VIAL IV PUSH PRN (23:57)
[2017-06-16] VITALS (10 sets, daily range): BP systolic 121–155; BP diastolic 71–91; PULSE 98–121; RESP 16–21; TEMP 96.1–97.7; O2SAT 93–99
[2017-06-16] MEDS: ONDANSETRON HCL 4 MG/2 ML VIAL IV PUSH PRN (00:01)
[2017-06-16] MEDS: RESP: ALBUTEROL 2.5 MG/IPRATROPIUM 0.5 MG NEB (SCH) NEB ×6 (00:40→19:43)
[2017-06-16] MEDS: PIPERACIL-TAZO 3.375 GM PREMIX 50 ML IV SCH ×3 (03:12→22:31)
[2017-06-16] MEDS: traMADol HCL 50 MG TAB PO PRN ×3 (03:13→22:35)
[2017-06-16] MEDS: HYDROmorphone HCL PF 2 MG/ML VIAL IV PUSH PRN ×2 (04:02→17:37)
[2017-06-16] MEDS: SODIUM CHLOR 0.9% 1000 ML INJ 1,000 ML IV SCH (04:30)
[2017-06-16 07:34] LABS: AUTOMATED NEUTROPHIL # 12.6 TH/MM3 (1.8-7.7); BASOPHIL % 0.2 % (0.0-2.0); EOSINOPHIL % 0.1 % (0.0-4.0); HEMATOCRIT 35.4 % (35.0-46.0); HEMOGLOBIN 11.7 GM/DL (11.6-15.3); LYMPH % 5.3 % (9.0-44.0); LYMPHOCYTE # 0.8 TH/MM3 (1.0-4.8); MEAN CELL VOLUME 92.2 FL (80.0-100.0); MEAN CORPUSCULAR HEMOGLOBIN 30.5 PG (27.0-34.0); MEAN CORPUSCULAR HGB CONC 33.1 % (32.0-36.0); MEAN PLATELET VOLUME 7.5 FL (7.0-11.0); MONO % 7.1 % (0.0-8.0); NEUT % 87.3 % (16.0-70.0); PLATELET COUNT 225 TH/MM3 (150-450); RED BLOOD COUNT 3.83 MIL/MM3 (4.00-5.30); RED CELL DISTRIBUTION WIDTH 14.8 % (11.6-17.2); WHITE BLOOD COUNT 14.5 TH/MM3 (4.0-11.0)
[2017-06-16 07:37] LABS: BICARBONATE 17.9 MEQ/L (21.0-32.0); CALCIUM 6.1 MG/DL (8.5-10.1); CREATININE 0.86 MG/DL (0.50-1.00); MAGNESIUM 1.6 MG/DL (1.5-2.5)
[2017-06-16] MEDS: INSULIN ASPART SUPPLEMENTAL SCALE SQ SCH ×4 (07:43→21:00)
[2017-06-16 07:52] LABS: CALCIUM-PROTEIN CORRECTED 7.5 MG/DL (8.5-10.1); TOTAL PROTEIN 4.2 GM/DL (6.4-8.2)
[2017-06-16] MEDS: NICOTINE 14 MG/24 HR PATCH T-DERMAL SCH (08:31)
[2017-06-16] MEDS: predniSONE 20 MG TAB PO SCH (08:31)
[2017-06-16] MEDS: BUDESONIDE-FORMOTEROL 80/4.5 MCG INHALER INH SCH ×2 (08:32→21:00)
[2017-06-16] MEDS: RESP: BUDESONIDE 0.5 MG/2 ML NEB NEB SCH ×2 (08:39→19:44)
[2017-06-16] MEDS ORDERED: POTASSIUM CHLORIDE 20 MEQ CONTROLLED RELEASE TAB PO ONE (10:15)
--- NOTE | 2017-06-16 10:56 | HHI.PR ---
Subjective Remarks Pt underwent surgical debridement of the RLE on 06/15/17 She has wound vac in place She feels her wheezing is better today Tolerating liquids but not eating much yet Afebrile Objective Vitals Vital Signs Date Time Temp Pulse Resp B/P (MAP) Pulse Ox O2 Delivery O2 Flow Rate FiO2 06/16/17 08:40 97 Nasal Cannula 3.00 06/16/17 08:00 97.7 121 16 136/91 (106) 94 06/16/17 04:32 18 06/16/17 04:30 96.6 109 16 155/75 (101) 97 06/16/17 04:13 20 06/16/17 00:45 96.1 120 21 136/90 (105) 97 06/16/17 00:42 98 Nasal Cannula 3.00 06/15/17 21:06 95.2 106 17 137/85 (102) 96 06/15/17 20:10 Nasal Cannula 3 06/15/17 20:00 97.8 108 17 127/81 (96) 100 Nasal Cannula 3 06/15/17 19:45 110 17 123/85 (98) 100 Nasal Cannula 3 06/15/17 19:30 112 19 141/78 (99) 100 Nasal Cannula 3 06/15/17 19:15 105 19 139/87 (104) 100 Nasal Cannula 3 06/15/17 18:59 97.8 103 19 130/75 (93) 100 Nasal Cannula 3 06/15/17 12:37 98.0 95 20 130/78 (95) 96 Result Diagram: 06/16/17 0610 06/16/17 0610 Other Results Laboratory Tests Test 06/15/17 09:51 06/16/17 06:10 White Blood Count 11.0 TH/MM3 14.5 TH/MM3 Red Blood Count 4.41 MIL/MM3 3.83 MIL/MM3 Hemoglobin 13.2 GM/DL 11.7 GM/DL Hematocrit 39.8 % 35.4 % Mean Corpuscular Volume 90.1 FL 92.2 FL Mean Corpuscular Hemoglobin 30.0 PG 30.5 PG Mean Corpuscular Hemoglobin Concent 33.3 % 33.1 % Red Cell Distribution Width 14.6 % 14.8 % Platelet Count 237 TH/MM3 225 TH/MM3 Mean Platelet Volume 7.1 FL 7.5 FL Neutrophils (%) (Auto) 86.0 % 87.3 % Lymphocytes (%) (Auto) 6.6 % 5.3 % Monocytes (%) (Auto) 7.0 % 7.1 % Eosinophils (%) (Auto) 0.2 % 0.1 % Basophils (%) (Auto) 0.2 % 0.2 % Neutrophils # (Auto) 9.5 TH/MM3 12.6 TH/MM3 Lymphocytes # (Auto) 0.7 TH/MM3 0.8 TH/MM3 Monocytes # (Auto) 0.8 TH/MM3 1.0 TH/MM3 Eosinophils # (Auto) 0.0 TH/MM3 0.0 TH/MM3 Basophils # (Auto) 0.0 TH/MM3 0.0 TH/MM3 CBC Comment AUTO DIFF DIFF FINAL Differential Total Cells Counted 100 Neutrophils % (Manual) 80 % Band Neutrophils % 8 % Lymphocytes % 5 % Monocytes % 6 % Neutrophils # (Manual) 9.8 TH/MM3 Metamyelocytes 1 % Differential Comment FINAL DIFF MANUAL Platelet Estimate NORMAL Platelet Morphology Comment NORMAL Spherocytes Blood Urea Nitrogen 36 MG/DL 32 MG/DL Creatinine 1.02 MG/DL 0.86 MG/DL Random Glucose 102 MG/DL 45 MG/DL Calcium Level 9.0 MG/DL 6.1 MG/DL Magnesium Level 2.3 MG/DL 1.6 MG/DL Sodium Level 144 MEQ/L 150 MEQ/L Potassium Level 3.9 MEQ/L 3.0 MEQ/L Chloride Level 111 MEQ/L 124 MEQ/L Carbon Dioxide Level 24.8 MEQ/L 17.9 MEQ/L Anion Gap 8 MEQ/L 8 MEQ/L Estimat Glomerular Filtration Rate 54 ML/MIN 66 ML/MIN Total Protein 4.2 GM/DL Protein Corrected Calcium 7.5 MG/DL Imaging Last Impressions Tibia/Fibula X-Ray 06/13/17 Signed Impressions: Service Date/Time: Tuesday, June 13, 2017 20:40 - CONCLUSION: 1. Ulceration at the lateral leg with soft tissue swelling. No bony abnormality. Kostas Rosado MD Chest X-Ray 06/13/17 0000 Signed Impressions: Service Date/Time: Tuesday, June 13, 2017 20:37 - CONCLUSION: 1. Mild hyperinflation. No active disease. Kostas Rosado MD Objective Remarks General: NAD, AAOx3 Chest: Expiratory wheeze bilaterally, improving Cardiac: Tachy, regular Abd: +BS, soft ND/NT Ext: RLE with wound vac in place A/P Problem List: (1) Open leg wound ICD Codes: S81.809A - Unspecified open wound, unspecified lower leg, initial encounter Status: Chronic Plan: LLE nonhealing wound - Patient with large, necrotic open wound right lower extremity x 2 months. - Wound culture growing gram negative rods - Blood cultures with no growth x 1 day - Pt has been started on Zosyn and Vancomycin - General Surgery is following - Pt underwent surgical debridement with wound vac placement on 06/15/[address] Clark - Pain control PRN - Monitor labs daily - Supportive care Tachycardia - Outpt 2D echo (04/03/17) --> Mild concentric LVH, Estimated EF 50%, Grade 1 diastolic dysfunction, Moderate mitral valve regurg, Mild tricuspid valve regurg, Normal estimated PA pressure, 32.7mmHg - Telemetry with noted sinus tachycardia - EKG in the ED noted sinus tachycardia COPD - PFT in 2017 with reported FEV1 of 0.51, 20% of predicted - Continue Symbicort BID and Combivent QID - Pt was given a dose of IV Solu-Medrol at admission - Prednisone 20mg po daily has been resumed. She has been on po steroids for quite some time. - Duonebs to Q4H - Budesonide Nebs BID - Supplemental O2 as needed Hyperglycemia - Pt likely with steroid induced hyperglycemia with her prolonged steroid use - Hgb A1C is 8.6% - NovoLog SSI - Accu checks Pharmacological DVT prophylaxis with Lovenox (2) COPD (chronic obstructive pulmonary disease) ICD Codes: J44.9 - Chronic obstructive pulmonary disease, unspecified Status: Chronic (3) Hyperglycemia ICD Codes: R73.9 - Hyperglycemia, unspecified Status: Acute Assessment and Plan Patient examined. Assessment and plan formulated with Yomaira Lemus PA-C. I agree with the above. rle severe cellulitis/necrosis/ulceration s/p debridement and wound vac 06/15 to OR today for wound vac change hold ivf. iv lasix for edema f/u cx cont abx cont nebs/steroids for copd Problem Qualifiers (1) Open leg wound: Qualified Codes: S81.801A - Unspecified open wound, right lower leg, initial encounter Yomaira Lemus Jun 16, 2017 10:56 Ellis Eason MD Jun 16, 2017 16:04
[2017-06-16] MEDS: 1/2 NS + KCL 20 MEQ INJ 1,000 ML IV SCH (15:27)
[2017-06-16] MEDS ORDERED: PHARMACY ORDERED LAB ONE (16:45)
[2017-06-16] MEDS: VANCOMYCIN 1,500 MG/NS 500 ML IV SCH ×2 (17:00)
[2017-06-16] MEDS: REMOVE OLD PATCH T-DERMAL SCH (21:00)
[2017-06-17] VITALS (8 sets, daily range): BP systolic 107–134; BP diastolic 75–90; PULSE 100–116; RESP 16–18; TEMP 96.3–97.5; O2SAT 93–100
[2017-06-17] MEDS ORDERED: LACTATED RINGER'S 1000 ML IV PRN (01:15)
[2017-06-17] MEDS ORDERED: CHLORHEXIDINE GLUCONATE 2 % 1 PACK (2 CLOTHS) TOPICAL PRN (01:15)
[2017-06-17] MEDS ORDERED: POVIDONE IODINE 5% (ANTISEPSIS KIT) 4 APPLICATIONS EACH NARE PRN (01:15)
[2017-06-17] MEDS: RESP: ALBUTEROL 2.5 MG/IPRATROPIUM 0.5 MG NEB (SCH) NEB ×7 (01:47→23:38)
[2017-06-17] MEDS ORDERED: PHARMACY ORDERED LAB ONE (04:00)
[2017-06-17] MEDS: PIPERACIL-TAZO 3.375 GM PREMIX 50 ML IV SCH ×3 (04:09→21:48)
[2017-06-17] MEDS: 1/2 NS + KCL 20 MEQ INJ 1,000 ML IV SCH (04:09)
[2017-06-17] MEDS: traMADol HCL 50 MG TAB PO PRN ×3 (04:15→17:13)
[2017-06-17 04:17] LABS: AUTOMATED NEUTROPHIL # 7.2 TH/MM3 (1.8-7.7); BASOPHIL % 0.2 % (0.0-2.0); EOSINOPHIL % 0.5 % (0.0-4.0); HEMATOCRIT 32.6 % (35.0-46.0); HEMOGLOBIN 10.9 GM/DL (11.6-15.3); LYMPH % 9.5 % (9.0-44.0); LYMPHOCYTE # 0.8 TH/MM3 (1.0-4.8); MEAN CELL VOLUME 91.9 FL (80.0-100.0); MEAN CORPUSCULAR HEMOGLOBIN 30.7 PG (27.0-34.0); MEAN CORPUSCULAR HGB CONC 33.4 % (32.0-36.0); MEAN PLATELET VOLUME 7.2 FL (7.0-11.0); MONO % 7.7 % (0.0-8.0); MONOCYTE # 0.7 TH/MM3 (0-0.9); NEUT % 82.1 % (16.0-70.0); PLATELET COUNT 200 TH/MM3 (150-450); RED BLOOD COUNT 3.54 MIL/MM3 (4.00-5.30); WHITE BLOOD COUNT 8.8 TH/MM3 (4.0-11.0)
[2017-06-17 04:21] LABS: BICARBONATE 25.2 MEQ/L (21.0-32.0); CALCIUM 8.5 MG/DL (8.5-10.1); CREATININE 1.41 MG/DL (0.50-1.00); MAGNESIUM 2.3 MG/DL (1.5-2.5)
[2017-06-17] MEDS ORDERED: DEXT 5%-NACL 0.9% 1000 ML INJ 1,000 ML IV ONE (07:45)
[2017-06-17] MEDS: RESP: BUDESONIDE 0.5 MG/2 ML NEB NEB SCH ×2 (08:00→20:00)
[2017-06-17] MEDS: INSULIN ASPART SUPPLEMENTAL SCALE SQ SCH ×4 (08:00→21:00)
[2017-06-17] MEDS: NICOTINE 14 MG/24 HR PATCH T-DERMAL SCH (08:00)
[2017-06-17] MEDS: BUDESONIDE-FORMOTEROL 80/4.5 MCG INHALER INH SCH ×2 (08:17→21:49)
[2017-06-17] MEDS: predniSONE 20 MG TAB PO SCH (09:00)
[2017-06-17] MEDS ORDERED: DEXTROSE 50% IN WATER 50 ML SYRINGE ONE (09:02)
[2017-06-17] MEDS ORDERED: DO NOT ADM ANY ANTICOAGULANT DRUGS PRN (11:00)
[2017-06-17] MEDS ORDERED: MIDAZOLAM HCL 2 MG/2 ML VIAL ONE (11:03)
--- NOTE | 2017-06-17 11:38 | HHI.PR ---
Subjective Remarks Pt just returned from surgery She is having swelling and weeping of fluid from bilateral LE Objective Vitals Vital Signs Date Time Temp Pulse Resp B/P (MAP) Pulse Ox O2 Delivery O2 Flow Rate FiO2 06/17/17 10:45 93 21 136/64 (88) 100 Room Air 06/17/17 10:35 98.0 103 23 140/75 (96) 100 Nasal Cannula 4 06/17/17 08:00 96.7 105 16 134/75 (94) 99 06/17/17 01:47 98 Nasal Cannula 2.50 06/17/17 00:00 97.1 100 16 131/79 (96) 93 06/16/17 20:00 97.0 104 18 121/71 (88) 93 06/16/17 16:01 98 Nasal Cannula 3.00 06/16/17 16:00 97.5 101 17 138/84 (102) 94 06/16/17 12:22 99 Nasal Cannula 3.00 06/16/17 12:00 96.8 98 17 132/85 (101) 94 06/17/17 06/17/17 06/18/17 15:00 23:00 07:00 Intake Total 800 ml Output Total 60 ml Balance 740 ml IV Total 800 ml Drainage Total 50 ml Estimated Blood Loss 10 ml Result Diagram: 06/17/17 0325 06/17/17 0325 Other Results Laboratory Tests Test 06/16/17 06:10 06/16/17 16:15 06/17/17 03:25 White Blood Count 14.5 TH/MM3 8.8 TH/MM3 Red Blood Count 3.83 MIL/MM3 3.54 MIL/MM3 Hemoglobin 11.7 GM/DL 10.9 GM/DL Hematocrit 35.4 % 32.6 % Mean Corpuscular Volume 92.2 FL 91.9 FL Mean Corpuscular Hemoglobin 30.5 PG 30.7 PG Mean Corpuscular Hemoglobin Concent 33.1 % 33.4 % Red Cell Distribution Width 14.8 % 15.0 % Platelet Count 225 TH/MM3 200 TH/MM3 Mean Platelet Volume 7.5 FL 7.2 FL Neutrophils (%) (Auto) 87.3 % 82.1 % Lymphocytes (%) (Auto) 5.3 % 9.5 % Monocytes (%) (Auto) 7.1 % 7.7 % Eosinophils (%) (Auto) 0.1 % 0.5 % Basophils (%) (Auto) 0.2 % 0.2 % Neutrophils # (Auto) 12.6 TH/MM3 7.2 TH/MM3 Lymphocytes # (Auto) 0.8 TH/MM3 0.8 TH/MM3 Monocytes # (Auto) 1.0 TH/MM3 0.7 TH/MM3 Eosinophils # (Auto) 0.0 TH/MM3 0.0 TH/MM3 Basophils # (Auto) 0.0 TH/MM3 0.0 TH/MM3 CBC Comment DIFF FINAL AUTO DIFF Differential Comment AUTO DIFF CONFIRMED Blood Urea Nitrogen 32 MG/DL 38 MG/DL Creatinine 0.86 MG/DL 1.41 MG/DL Random Glucose 45 MG/DL 59 MG/DL Total Protein 4.2 GM/DL Calcium Level 6.1 MG/DL 8.5 MG/DL Magnesium Level 1.6 MG/DL 2.3 MG/DL Sodium Level 150 MEQ/L 141 MEQ/L Potassium Level 3.0 MEQ/L 5.0 MEQ/L Chloride Level 124 MEQ/L 112 MEQ/L Carbon Dioxide Level 17.9 MEQ/L 25.2 MEQ/L Anion Gap 8 MEQ/L 4 MEQ/L Estimat Glomerular Filtration Rate 66 ML/MIN 37 ML/MIN Protein Corrected Calcium 7.5 MG/DL Vancomycin Level Trough 28.0 MCG/ML 25.0 MCG/ML Imaging Last Impressions Tibia/Fibula X-Ray 06/13/17 0000 Signed Impressions: Service Date/Time: Tuesday, June 13, 2017 20:40 - CONCLUSION: 1. Ulceration at the lateral leg with soft tissue swelling. No bony abnormality. Kostas Rosado MD Chest X-Ray 06/13/17 0000 Signed Impressions: Service Date/Time: Tuesday, June 13, 2017 20:37 - CONCLUSION: 1. Mild hyperinflation. No active disease. Kostas Rosado MD Objective Remarks General: NAD, AAOx3 Chest: Expiratory wheeze bilaterally, improving Cardiac: Tachy, regular Abd: +BS, soft ND/NT Ext: RLE with wound vac in place, edema in bilateral LE with weeping fluid A/P Problem List: (1) Open leg wound ICD Codes: S81.809A - Unspecified open wound, unspecified lower leg, initial encounter Status: Chronic Plan: LLE nonhealing wound - Patient with large, necrotic open wound right lower extremity x 2 months. - Wound culture growing gram negative rods - Blood cultures with no growth x 1 day - Pt has been started on Zosyn and Vancomycin - General Surgery is following - Pt underwent surgical debridement with wound vac placement on 06/15/[address] Clark - Pt underwent a vac change on 06/17/17 and is planned for another surgery on 06/19 - She is have edema in bilateral UE with weeping, give try to give some Lasix IV today but will need to monitor renal function and electrolytes closely - Add Ensure with each meal and at bedtime - Pain control PRN - Monitor labs daily - Supportive care Tachycardia - Outpt 2D echo (04/03/17) --> Mild concentric LVH, Estimated EF 50%, Grade 1 diastolic dysfunction, Moderate mitral valve regurg, Mild tricuspid valve regurg, Normal estimated PA pressure, 32.7mmHg - Telemetry with noted sinus tachycardia - EKG in the ED noted sinus tachycardia COPD - PFT in 2017 with reported FEV1 of 0.51, 20% of predicted - Continue Symbicort BID and Combivent QID - Pt was given a dose of IV Solu-Medrol at admission - Prednisone 20mg po daily has been resumed. She has been on po steroids for quite some time. - Duonebs to Q4H - Budesonide Nebs BID - Supplemental O2 as needed Hyperglycemia - Pt likely with steroid induced hyperglycemia with her prolonged steroid use - Hgb A1C is 8.6% - NovoLog SSI - Accu checks Pharmacological DVT prophylaxis with Lovenox (2) COPD (chronic obstructive pulmonary disease) ICD Codes: J44.9 - Chronic obstructive pulmonary disease, unspecified Status: Chronic (3) Hyperglycemia ICD Codes: R73.9 - Hyperglycemia, unspecified Status: Acute Problem Qualifiers (1) Open leg wound: Qualified Codes: S81.801A - Unspecified open wound, right lower leg, initial encounter Yomaira Lemus Jun 17, 2017 11:38
[2017-06-17] MEDS ORDERED: PROPOFOL 200 MG/20 ML AMP IV ONE (12:00)
[2017-06-17] MEDS ORDERED: PHENYLEPH/NS 1000 MCG/10 ML SYR IV ONE (12:00)
[2017-06-17] MEDS ORDERED: LIDOCAINE HCL 1% PF 5 ML SYRINGE OTHER ONE (12:00)
[2017-06-17] MEDS ORDERED: FUROSEMIDE 20 MG/2 ML VIAL IV PUSH ONE (12:00)
[2017-06-17] MEDS: REMOVE OLD PATCH T-DERMAL SCH (21:00)
[2017-06-18] VITALS (8 sets, daily range): BP systolic 98–120; BP diastolic 66–78; PULSE 97–110; RESP 15–18; TEMP 95.8–98.6; O2SAT 98–100
[2017-06-18] MEDS: traMADol HCL 50 MG TAB PO PRN ×4 (00:03→18:10)
[2017-06-18] MEDS: RESP: ALBUTEROL 2.5 MG/IPRATROPIUM 0.5 MG NEB (SCH) NEB ×4 (04:00→22:02)
[2017-06-18] MEDS: PIPERACIL-TAZO 3.375 GM PREMIX 50 ML IV SCH ×4 (04:19→21:09)
[2017-06-18] MEDS: INSULIN ASPART SUPPLEMENTAL SCALE SQ SCH ×4 (08:00→21:00)
[2017-06-18] MEDS: NICOTINE 14 MG/24 HR PATCH T-DERMAL SCH (09:00)
[2017-06-18] MEDS: predniSONE 20 MG TAB PO SCH (09:22)
[2017-06-18] MEDS: BUDESONIDE-FORMOTEROL 80/4.5 MCG INHALER INH SCH ×2 (09:22→21:10)
[2017-06-18 09:45] LABS: BICARBONATE 28.1 MEQ/L (21.0-32.0); CALCIUM 9.2 MG/DL (8.5-10.1); CREATININE 1.44 MG/DL (0.50-1.00)
[2017-06-18 09:47] LABS: RANDOM VANCOMYCIN 15.6 COMMENT
--- NOTE | 2017-06-18 10:19 | HHI.PR ---
Subjective Remarks Pt reports that she thinks the swelling in her UE may be slightly better but she is still weeping a lot of fluid out of both UE Afebrile Objective Vitals Vital Signs Date Time Temp Pulse Resp B/P (MAP) Pulse Ox O2 Delivery O2 Flow Rate FiO2 06/18/17 08:00 95.8 97 15 119/74 (89) 100 06/18/17 04:00 97.6 108 18 117/77 (90) 100 06/18/17 00:00 97.5 110 18 98/66 (77) 100 06/17/17 20:36 116 06/17/17 20:00 97.3 106 18 132/81 (98) 100 06/17/17 20:00 97 Nasal Cannula 2.00 06/17/17 18:13 18 06/17/17 16:00 97.5 115 16 134/90 (105) 98 06/17/17 12:09 100 Nasal Cannula 2.00 06/17/17 12:00 96.3 112 17 107/78 (88) 97 06/17/17 10:45 93 21 136/64 (88) 100 Room Air 06/17/17 10:35 98.0 103 23 140/75 (96) 100 Nasal Cannula 4 Result Diagram: 06/17/17 0325 06/18/17 0750 Other Results Laboratory Tests Test 06/16/17 16:15 06/17/17 03:25 06/18/17 07:50 Vancomycin Level Trough 28.0 MCG/ML 25.0 MCG/ML White Blood Count 8.8 TH/MM3 Red Blood Count 3.54 MIL/MM3 Hemoglobin 10.9 GM/DL Hematocrit 32.6 % Mean Corpuscular Volume 91.9 FL Mean Corpuscular Hemoglobin 30.7 PG Mean Corpuscular Hemoglobin Concent 33.4 % Red Cell Distribution Width 15.0 % Platelet Count 200 TH/MM3 Mean Platelet Volume 7.2 FL Neutrophils (%) (Auto) 82.1 % Lymphocytes (%) (Auto) 9.5 % Monocytes (%) (Auto) 7.7 % Eosinophils (%) (Auto) 0.5 % Basophils (%) (Auto) 0.2 % Neutrophils # (Auto) 7.2 TH/MM3 Lymphocytes # (Auto) 0.8 TH/MM3 Monocytes # (Auto) 0.7 TH/MM3 Eosinophils # (Auto) 0.0 TH/MM3 Basophils # (Auto) 0.0 TH/MM3 CBC Comment AUTO DIFF Differential Comment AUTO DIFF CONFIRMED Blood Urea Nitrogen 38 MG/DL 31 MG/DL Creatinine 1.41 MG/DL 1.44 MG/DL Random Glucose 59 MG/DL 71 MG/DL Calcium Level 8.5 MG/DL 9.2 MG/DL Magnesium Level 2.3 MG/DL Sodium Level 141 MEQ/L 148 MEQ/L Potassium Level 5.0 MEQ/L 5.5 MEQ/L Chloride Level 112 MEQ/L 113 MEQ/L Carbon Dioxide Level 25.2 MEQ/L 28.1 MEQ/L Anion Gap 4 MEQ/L 7 MEQ/L Estimat Glomerular Filtration Rate 37 ML/MIN 36 ML/MIN Random Vancomycin Level 15.6 COMMENT Imaging Last Impressions Tibia/Fibula X-Ray 06/13/17 0000 Signed Impressions: Service Date/Time: Tuesday, June 13, 2017 20:40 - CONCLUSION: 1. Ulceration at the lateral leg with soft tissue swelling. No bony abnormality. Kostas Rosado MD Chest X-Ray 06/13/17 0000 Signed Impressions: Service Date/Time: Tuesday, June 13, 2017 20:37 - CONCLUSION: 1. Mild hyperinflation. No active disease. Kostas Rosado MD Objective Remarks General: NAD, AAOx3 Chest: Slight expiratory wheeze bilaterally, improving Cardiac: Tachy, regular Abd: +BS, soft ND/NT Ext: RLE with wound vac in place, edema in bilateral LE with weeping fluid A/P Problem List: (1) Open leg wound ICD Codes: S81.809A - Unspecified open wound, unspecified lower leg, initial encounter Status: Chronic Plan: LLE nonhealing wound - Patient with large, necrotic open wound right lower extremity x 2 months. - Wound culture growing gram negative rods - Blood cultures with no growth x 1 day - Pt has been started on Zosyn and Vancomycin - General Surgery is following - Pt underwent surgical debridement with wound vac placement on 06/15/[address] Clark - Pt underwent a vac change on 06/17/17 and is planned for another surgery on 06/19 - She is have edema in bilateral UE with weeping, pt was given Lasix IV on . Renal function increased slightly to BUN 31/Cr 1.44. Encouraged the pt to drink a lot of fluids today. - Repeat labs in AM - Ensure with each meal and at bedtime - Pain control PRN - Monitor labs daily - Supportive care Tachycardia - Outpt 2D echo (04/03/17) --> Mild concentric LVH, Estimated EF 50%, Grade 1 diastolic dysfunction, Moderate mitral valve regurg, Mild tricuspid valve regurg, Normal estimated PA pressure, 32.7mmHg - Telemetry with noted sinus tachycardia - EKG in the ED noted sinus tachycardia COPD - PFT in 2017 with reported FEV1 of 0.51, 20% of predicted - Continue Symbicort BID and Combivent QID - Pt was given a dose of IV Solu-Medrol at admission - Prednisone 20mg po daily has been resumed. She has been on po steroids for quite some time. - Duonebs to Q4H - Budesonide Nebs BID - Supplemental O2 as needed Hyperglycemia - Pt likely with steroid induced hyperglycemia with her prolonged steroid use - Hgb A1C is 8.6% - NovoLog SSI - Accu checks Pharmacological DVT prophylaxis with Lovenox (2) COPD (chronic obstructive pulmonary disease) ICD Codes: J44.9 - Chronic obstructive pulmonary disease, unspecified Status: Chronic (3) Hyperglycemia ICD Codes: R73.9 - Hyperglycemia, unspecified Status: Acute Assessment and Plan Patient examined. Assessment and plan formulated with Yomaira Lemus PA-C. I agree with the above. severe copd/hx lung injury chemical exposure. cont rx right leg necrosis/cellulitis and ulceration...cont debridement/wound vac changes per surgery. recheck k......kayexalate if needed. Problem Qualifiers (1) Open leg wound: Qualified Codes: S81.801A - Unspecified open wound, right lower leg, initial encounter Yomaira Lemus Jun 18, 2017 10:19 Ellis Eason MD Jun 18, 2017 11:34
[2017-06-18] MEDS ORDERED: ENOXAPARIN SODIUM 30 MG/0.3 ML SYRINGE SQ ONE (10:30)
[2017-06-18] MEDS ORDERED: VANCOMYCIN 1,500 MG/NS 500 ML IV ONE ×2 (12:00)
[2017-06-18] MEDS: RESP: BUDESONIDE 0.5 MG/2 ML NEB NEB SCH ×2 (13:18→20:00)
[2017-06-18] MEDS: REMOVE OLD PATCH T-DERMAL SCH (21:00)
[2017-06-19] VITALS (9 sets, daily range): BP systolic 120–143; BP diastolic 60–86; PULSE 96–112; RESP 17–20; TEMP 96.6–96.9; O2SAT 98–100
[2017-06-19] MEDS: traMADol HCL 50 MG TAB PO PRN ×3 (01:16→13:02)
[2017-06-19] MEDS: PIPERACIL-TAZO 3.375 GM PREMIX 50 ML IV SCH ×3 (03:55→22:31)
[2017-06-19] MEDS: RESP: ALBUTEROL 2.5 MG/IPRATROPIUM 0.5 MG NEB (SCH) NEB ×7 (05:53→23:28)
[2017-06-19] MEDS: INSULIN ASPART SUPPLEMENTAL SCALE SQ SCH ×4 (08:00→20:26)
[2017-06-19] MEDS: RESP: BUDESONIDE 0.5 MG/2 ML NEB NEB SCH ×2 (08:00→19:54)
[2017-06-19] MEDS: BUDESONIDE-FORMOTEROL 80/4.5 MCG INHALER INH SCH ×2 (08:36→22:31)
[2017-06-19] MEDS: predniSONE 20 MG TAB PO SCH (08:37)
[2017-06-19] MEDS: NICOTINE 14 MG/24 HR PATCH T-DERMAL SCH (09:00)
--- NOTE | 2017-06-19 12:36 | HHI.PR ---
Subjective Remarks No new complaints today Pts UE edema seems slightly better today LE edema is improving No BM recorded since admission Objective Vitals Vital Signs Date Time Temp Pulse Resp B/P (MAP) Pulse Ox O2 Delivery O2 Flow Rate FiO2 06/19/17 12:00 96.7 100 17 128/71 (90) 99 06/19/17 09:08 98 Nasal Cannula 2.00 06/19/17 08:20 18 06/19/17 08:00 96.7 96 17 120/74 (89) 100 06/19/17 00:17 96.8 112 18 120/74 (89) 99 06/18/17 22:03 98 Nasal Cannula 2.00 06/18/17 20:00 96.9 109 18 111/78 (89) 98 06/18/17 19:53 107 06/18/17 16:00 96.5 109 17 108/73 (85) 100 Result Diagram: 06/17/17 0325 06/19/17 0730 Other Results Laboratory Tests Test 06/18/17 07:50 06/18/17 18:05 06/19/17 07:30 Blood Urea Nitrogen 31 MG/DL Creatinine 1.44 MG/DL 1.00 MG/DL Random Glucose 71 MG/DL Calcium Level 9.2 MG/DL Sodium Level 148 MEQ/L Potassium Level 5.5 MEQ/L 3.8 MEQ/L Chloride Level 113 MEQ/L Carbon Dioxide Level 28.1 MEQ/L Anion Gap 7 MEQ/L Estimat Glomerular Filtration Rate 36 ML/MIN 55 ML/MIN Random Vancomycin Level 15.6 COMMENT 26.0 COMMENT Imaging Last Impressions Tibia/Fibula X-Ray 06/13/17 0000 Signed Impressions: Service Date/Time: Tuesday, June 13, 2017 20:40 - CONCLUSION: 1. Ulceration at the lateral leg with soft tissue swelling. No bony abnormality. Kostas Rosado MD Chest X-Ray 06/13/17 0000 Signed Impressions: Service Date/Time: Tuesday, June 13, 2017 20:37 - CONCLUSION: 1. Mild hyperinflation. No active disease. Kostas Rosado MD Objective Remarks General: NAD, AAOx3 Chest: Slight expiratory wheeze bilaterally, improving Cardiac: Tachy, regular Abd: +BS, soft ND/NT Ext: RLE with wound vac in place, edema in bilateral UE with weeping fluid, slightly improved A/P Problem List: (1) Open leg wound ICD Codes: S81.809A - Unspecified open wound, unspecified lower leg, initial encounter Status: Chronic Plan: LLE nonhealing wound - Patient with large, necrotic open wound right lower extremity x 2 months. - Wound culture growing gram negative rods - Blood cultures with no growth x 1 day - Pt has been started on Zosyn and Vancomycin - General Surgery is following - Pt underwent surgical debridement with wound vac placement on 06/15/[address] Clark - Pt underwent a vac change on 06/17/17 and is planned for another surgery and wound vac change on 06/19 - She is have edema in bilateral UE with weeping, pt was given Lasix IV on . Renal function increased slightly to BUN 31/Cr 1.44 on 06/18. Encouraged the pt to drink a lot of fluids today. Cr improved to 1.0 on 06/19 - Repeat labs in AM - Ensure with each meal and at bedtime - Pain control PRN - Constipation precautions, Vivian-Colace BID, MOM PRB, Dulcolax PRN - Monitor labs daily - Supportive care Tachycardia - Outpt 2D echo (04/03/17) --> Mild concentric LVH, Estimated EF 50%, Grade 1 diastolic dysfunction, Moderate mitral valve regurg, Mild tricuspid valve regurg, Normal estimated PA pressure, 32.7mmHg - Telemetry with noted sinus tachycardia - EKG in the ED noted sinus tachycardia COPD/Chemical exposure hx in 08/2016 - PFT in 2017 with reported FEV1 of 0.51, 20% of predicted - Continue Symbicort BID and Combivent QID - Pt was given a dose of IV Solu-Medrol at admission - Prednisone 20mg po daily has been resumed. She has been on po steroids for quite some time. - Duonebs to Q4H - Budesonide Nebs BID - Supplemental O2 as needed Hyperglycemia - Pt likely with steroid induced hyperglycemia with her prolonged steroid use - Hgb A1C is 8.6% - She has been having some intermittent issues with hypoglycemia - NovoLog SSI, low dose - Accu checks Pharmacological DVT prophylaxis with Lovenox, to be evaluated daily as she has been having surgery/wound vac changes frequently (2) COPD (chronic obstructive pulmonary disease) ICD Codes: J44.9 - Chronic obstructive pulmonary disease, unspecified Status: Chronic (3) Hyperglycemia ICD Codes: R73.9 - Hyperglycemia, unspecified Status: Acute Assessment and Plan Patient examined. Assessment and plan formulated with Yomaira Lemus PA-C. I agree with the above. Pt very painful with wound VAC change Case d/w Dr. Knight will perform next VAC change in the OR. Problem Qualifiers (1) Open leg wound: Qualified Codes: S81.801A - Unspecified open wound, right lower leg, initial encounter Yomaira Lemus Jun 19, 2017 12:36 Kin Parsons DO Jun 22, 2017 14:06
[2017-06-19] MEDS ORDERED: BISACODYL 10 MG SUPP RECTAL PRN (12:45)
[2017-06-19] MEDS ORDERED: SENNOSIDES 8.6 MG TAB PO PRN (12:45)
[2017-06-19 12:52] LABS: BICARBONATE 24.9 MEQ/L (21.0-32.0); CALCIUM 8.8 MG/DL (8.5-10.1)
[2017-06-19] MEDS: ONDANSETRON HCL 4 MG/2 ML VIAL IV PUSH PRN (13:08)
[2017-06-19] MEDS: FUROSEMIDE 20 MG TAB PO SCH (15:18)
--- NOTE | 2017-06-19 15:22 | PD.WCN.NOT ---
Wound Consult Description: Called into room by SAY Abad via [employer] Communicated with: Dr Antonia Abad RN Recommendation: Change wound VAC in O.R. Monday Additional Information: Patient seen on for assistance with wound VAC change to right lower extremity with SAY Abad. Neg Pressure Wound Therapy Wound Location Wound Location: Right lower extremity Wound Description Length: ~23cm Width: ~38cm Depth: ~1cm Wound bed appearance: ~80% fascia ~20% red non granulating tissue Periwound appearance: Other (Maceration with friable discolored tissue) Settings Suction: 125 mmHg, Continuous Intensity: Low Other Information: Windowpaned Foam type: Black Number of pieces: other (6 pieces cut in different sizes from large foam dressing) Additonal Information Upon entering patient room, all foam had been removed from patient right lower leg. Wound was cleansed with Normal Saline and the periwound was prepped with skin barrier film. Wound measured ~23cm x 38cm x 1cm of ~80% fascia and ~20% red non granulating tissue with minimal to moderate sanguinous drainage coming from posterior leg wound. All of the fascia was covered with Adaptic (Oil Emulsion). Entire periwound was window paned using VAC drape. A large foam dressing was cut in half and used in the wound bed and secured with VAC drape. A hole was cut in the VAC drape and the sensitrac pad was placed and attached to the tubing and the machine was turned on. Settings are 125mmHg low continuous suction without leaks noted. Patient was premedicated per SAY Abad. Patient was grimacing through entire dressing change with deep breathing and withdrawing from pain. fast food crew member acquired order for further medication during dressing change. Patient was resting comfortably after dressing change and easily aroused prior to sign writer hand leaving room with SAY Abad. Dr Knight was contacted by sign writer hand for recommendations of next VAC change to be completed in O.R. due to extensive surface area, patient pain, and risks involved with bleeding and infection. Telma John [facility] Jun 19, 2017 15:22
[2017-06-19] MEDS: ALBUMIN 25% INJ 100 ML IV SCH (17:21)
[2017-06-19] MEDS: DOCUSATE SODIUM 50 MG/SENNA 8.6 MG TAB PO SCH (21:00)
[2017-06-19] MEDS: REMOVE OLD PATCH T-DERMAL SCH (21:00)
[2017-06-20] VITALS (8 sets, daily range): BP systolic 105–136; BP diastolic 65–82; PULSE 95–124; RESP 19–20; TEMP 96.6–97.8; O2SAT 94–99
[2017-06-20] MEDS: RESP: ALBUTEROL 2.5 MG/IPRATROPIUM 0.5 MG NEB (SCH) NEB ×5 (03:14→20:24)
[2017-06-20] MEDS: PIPERACIL-TAZO 3.375 GM PREMIX 50 ML IV SCH ×3 (03:28→21:45)
[2017-06-20] MEDS: traMADol HCL 50 MG TAB PO PRN ×4 (03:35→21:49)
[2017-06-20 06:32] LABS: AUTOMATED NEUTROPHIL # 5.3 TH/MM3 (1.8-7.7); BASOPHIL % 0.2 % (0.0-2.0); EOSINOPHIL # 0.1 TH/MM3 (0-0.4); EOSINOPHIL % 1.5 % (0.0-4.0); HEMATOCRIT 27.4 % (35.0-46.0); HEMOGLOBIN 9.5 GM/DL (11.6-15.3); LYMPH % 13.1 % (9.0-44.0); LYMPHOCYTE # 0.9 TH/MM3 (1.0-4.8); MEAN CELL VOLUME 89.7 FL (80.0-100.0); MEAN CORPUSCULAR HEMOGLOBIN 31.1 PG (27.0-34.0); MEAN CORPUSCULAR HGB CONC 34.7 % (32.0-36.0); MONO % 7.9 % (0.0-8.0); MONOCYTE # 0.5 TH/MM3 (0-0.9); NEUT % 77.3 % (16.0-70.0); PLATELET COUNT 214 TH/MM3 (150-450); RED BLOOD COUNT 3.05 MIL/MM3 (4.00-5.30); RED CELL DISTRIBUTION WIDTH 14.4 % (11.6-17.2); WHITE BLOOD COUNT 6.9 TH/MM3 (4.0-11.0)
[2017-06-20 06:50] LABS: BICARBONATE 32.3 MEQ/L (21.0-32.0); CALCIUM 8.9 MG/DL (8.5-10.1); CREATININE 0.92 MG/DL (0.50-1.00); MAGNESIUM 2.1 MG/DL (1.5-2.5)
[2017-06-20 06:52] LABS: RANDOM VANCOMYCIN 16.4 COMMENT
[2017-06-20] MEDS: RESP: BUDESONIDE 0.5 MG/2 ML NEB NEB SCH ×2 (08:00→20:26)
[2017-06-20] MEDS: INSULIN ASPART SUPPLEMENTAL SCALE SQ SCH ×4 (08:40→21:00)
[2017-06-20] MEDS: DOCUSATE SODIUM 50 MG/SENNA 8.6 MG TAB PO SCH ×2 (08:41→21:00)
[2017-06-20] MEDS: predniSONE 20 MG TAB PO SCH (08:41)
[2017-06-20] MEDS: ALBUMIN 25% INJ 100 ML IV SCH ×2 (08:42→18:09)
[2017-06-20] MEDS: FUROSEMIDE 20 MG TAB PO SCH (08:43)
[2017-06-20] MEDS: NICOTINE 14 MG/24 HR PATCH T-DERMAL SCH (09:00)
[2017-06-20] MEDS: BUDESONIDE-FORMOTEROL 80/4.5 MCG INHALER INH SCH ×2 (09:42→21:53)
--- NOTE | 2017-06-20 09:42 | MP ---
cc: PETER CLARK DATE OF SURGERY 06/15/2017 DATE OF 1950 PREOPERATIVE DIAGNOSIS Right leg ulcer POSTOPERATIVE DIAGNOSIS Necrotic skin and soft tissue right leg. PROCEDURE Debridement of right leg with VAC dressing placement. SURGEON Peter Clark MD ANESTHESIA Spinal ESTIMATED BLOOD LOSS 50 cc FINDINGS From the patient's ankle to the proximal leg just below the knee, the skin and soft tissue was necrotic. This did not appear to extend down to through the fascia and muscle layer and this was circumferential. SPECIMEN Skin and soft tissue leg. COMPLICATIONS None OPERATION The patient was brought to the operating room and placed on the operating table in a supine position. Spinal was instituted by Anesthesia. The patient was sedated. The right leg was prepped and draped sterilely. The skin and soft tissue that was devitalized was removed using blunt and sharp dissection. It was taken down to the fascia which appeared to be healthy and the muscle beneath this appeared to be healthy. Once all the necrotic tissue was removed, the wound was pulse irrigated. Hemostasis was obtained with Bovie and a Vac dressing was placed. The patient was then awakened and taken to the recovery room. MD TRISTAN Hansen/CLAUDETTE /11:47 AM /9:36 AM
--- NOTE | 2017-06-20 09:46 | MP ---
cc: PETER CLARK DATE OF 1950 DATE OF OPERATION 06/17/2017 PREOPERATIVE DIAGNOSIS Wound right leg. POSTOPERATIVE DIAGNOSIS Wound right leg. PROCEDURE Debridement of wound with dressing change. SURGEON Peter Clark MD ANESTHESIA Spinal, sedation. ESTIMATED BLOOD LOSS 10 cc. FINDINGS One area of the skin that seemed to have hemorrhagic changes. A small segment was devitalized. This segment was removed. OPERATION The patient was brought to the operating room, placed on the operating room table in supine position. Spinal anesthesia was instituted, sedation instituted. The right leg was prepped and draped sterilely. After removing the VAC dressing, the wound was inspected with the findings as above. The devitalized area was removed. The wound was washed with saline and the VAC dressing replaced. The patient was awakened and taken to the recovery room. Peter Clark MD JS/SSB /11:50 AM /9:39 AM
[2017-06-20] MEDS ORDERED: VANCOMYCIN INJ 1,500 MG in SODIUM CHLORID 0.9% 500 ML INJ 500 ML IV ONE (13:00)
[2017-06-20] MEDS ORDERED: POTASSIUM CHLORIDE 20 MEQ CONTROLLED RELEASE TAB PO ONE (14:15)
--- NOTE | 2017-06-20 15:08 | HHI.PR ---
Subjective Remarks Pt had wound vac change at the bedside on 06/19 and pt had a very difficult time with this due to pain and anxiety. Wound care nurse assisted the nurse during the bedside wound vac change Pt was offered increased Dilaudid during the vac change but pt declined as this causes her increased nausea She was given a dose of IV Ativan but still had great difficulty tolerating the bedside vac change Pt has been afebrile today Still no BM recorded Objective Vitals Vital Signs Date Time Temp Pulse Resp B/P (MAP) Pulse Ox O2 Delivery O2 Flow Rate FiO2 06/20/17 12:00 97.8 105 20 105/65 (78) 96 06/20/17 08:23 99 Nasal Cannula 2.00 06/20/17 08:00 96.9 109 20 134/77 (96) 97 06/20/17 04:00 96.9 124 20 136/82 (100) 99 06/20/17 00:00 96.9 107 20 124/70 (88) 98 06/19/17 23:31 98 Nasal Cannula 2.00 06/19/17 20:00 96.6 108 20 134/60 (84) 99 06/19/17 19:30 110 06/19/17 16:27 98 Nasal Cannula 2.00 06/19/17 16:00 96.9 104 17 143/86 (105) 100 06/20/17 06/20/17 06/21/17 15:00 23:00 07:00 Intake Total 120 ml Balance 120 ml Intake Oral 120 ml Result Diagram: 06/20/17 0600 06/20/17 0600 Other Results Laboratory Tests Test 06/18/17 18:05 06/19/17 07:30 06/20/17 06:00 Potassium Level 3.8 MEQ/L 3.8 MEQ/L 3.3 MEQ/L Blood Urea Nitrogen 21 MG/DL 19 MG/DL Creatinine 1.00 MG/DL 0.92 MG/DL Random Glucose 74 MG/DL 62 MG/DL Calcium Level 8.8 MG/DL 8.9 MG/DL Sodium Level 144 MEQ/L 145 MEQ/L Chloride Level 110 MEQ/L 107 MEQ/L Carbon Dioxide Level 24.9 MEQ/L 32.3 MEQ/L Anion Gap 9 MEQ/L 6 MEQ/L Estimat Glomerular Filtration Rate 55 ML/MIN 61 ML/MIN Random Vancomycin Level 26.0 COMMENT 16.4 COMMENT White Blood Count 6.9 TH/MM3 Red Blood Count 3.05 MIL/MM3 Hemoglobin 9.5 GM/DL Hematocrit 27.4 % Mean Corpuscular Volume 89.7 FL Mean Corpuscular Hemoglobin 31.1 PG Mean Corpuscular Hemoglobin Concent 34.7 % Red Cell Distribution Width 14.4 % Platelet Count 214 TH/MM3 Mean Platelet Volume 7.0 FL Neutrophils (%) (Auto) 77.3 % Lymphocytes (%) (Auto) 13.1 % Monocytes (%) (Auto) 7.9 % Eosinophils (%) (Auto) 1.5 % Basophils (%) (Auto) 0.2 % Neutrophils # (Auto) 5.3 TH/MM3 Lymphocytes # (Auto) 0.9 TH/MM3 Monocytes # (Auto) 0.5 TH/MM3 Eosinophils # (Auto) 0.1 TH/MM3 Basophils # (Auto) 0.0 TH/MM3 CBC Comment AUTO DIFF Differential Comment FINAL DIFF MANUAL Magnesium Level 2.1 MG/DL Imaging Last Impressions Tibia/Fibula X-Ray 06/13/17 0000 Signed Impressions: Service Date/Time: Tuesday, June 13, 2017 20:40 - CONCLUSION: 1. Ulceration at the lateral leg with soft tissue swelling. No bony abnormality. Kostas Rosado MD Chest X-Ray 06/13/17 0000 Signed Impressions: Service Date/Time: Tuesday, June 13, 2017 20:37 - CONCLUSION: 1. Mild hyperinflation. No active disease. Kostas Rosado MD Objective Remarks General: NAD, AAOx3 Chest: Slight expiratory wheeze bilaterally, improving Cardiac: Tachy, regular Abd: +BS, soft ND/NT Ext: RLE with wound vac in place, edema in bilateral UE with weeping fluid, slightly improved A/P Problem List: (1) Open leg wound ICD Codes: S81.809A - Unspecified open wound, unspecified lower leg, initial encounter Status: Chronic Plan: LLE nonhealing wound - Patient with large, necrotic open wound right lower extremity x 2 months. - Wound culture growing gram negative rods - Blood cultures with no growth x 1 day - Pt has been started on Zosyn and Vancomycin - General Surgery is following - Pt underwent surgical debridement with wound vac placement on 06/15/[address] Clark - Pt underwent a vac change on 06/17/17 and is planned for another surgery and wound vac change on 06/19 - She is have edema in bilateral UE with weeping, pt was given Lasix IV on . Renal function increased slightly to BUN 31/Cr 1.44 on 06/18. Encouraged the pt to drink a lot of fluids today. Cr improved to 1.0 on 06/19. Renal function stable today on Oral Lasix 20mg po daily. Add KCL 20meq daily - Repeat labs in AM - Ensure with each meal and at bedtime - Case discussed with Dr. Moreno on 06/19 after wound vac change and recommended to have wound vac changes in the OR - Pain control PRN - Constipation precautions, Vivian-Colace BID, MOM PRB, Dulcolax PRN - Monitor labs daily - Supportive care Tachycardia - Outpt 2D echo (04/03/17) --> Mild concentric LVH, Estimated EF 50%, Grade 1 diastolic dysfunction, Moderate mitral valve regurg, Mild tricuspid valve regurg, Normal estimated PA pressure, 32.7mmHg - Telemetry with noted sinus tachycardia - EKG in the ED noted sinus tachycardia COPD/Chemical exposure hx in 08/2016 - PFT in 2017 with reported FEV1 of 0.51, 20% of predicted - Continue Symbicort BID and Combivent QID - Pt was given a dose of IV Solu-Medrol at admission - Prednisone 20mg po daily has been resumed. She has been on po steroids for quite some time. - Duonebs to Q4H - Budesonide Nebs BID - Supplemental O2 as needed Hyperglycemia - Pt likely with steroid induced hyperglycemia with her prolonged steroid use - Hgb A1C is 8.6% - She has been having some intermittent issues with hypoglycemia - NovoLog SSI, low dose - Accu checks Pharmacological DVT prophylaxis with Lovenox, needs to be evaluated daily as she has been having surgery/wound vac changes frequently (2) COPD (chronic obstructive pulmonary disease) ICD Codes: J44.9 - Chronic obstructive pulmonary disease, unspecified Status: Chronic (3) Hyperglycemia ICD Codes: R73.9 - Hyperglycemia, unspecified Status: Acute Assessment and Plan Patient examined. Assessment and plan formulated with Yomaira Lemus PA-C. I agree with the above. Problem Qualifiers (1) Open leg wound: Qualified Codes: S81.801A - Unspecified open wound, right lower leg, initial encounter Yomaira Lemus Jun 20, 2017 15:08 Kin Parsons DO Jun 22, 2017 14:07
[2017-06-20] MEDS: ENOXAPARIN SODIUM 30 MG/0.3 ML SYRINGE SQ SCH (16:26)
[2017-06-20] MEDS: REMOVE OLD PATCH T-DERMAL SCH (21:00)
[2017-06-21] VITALS (9 sets, daily range): BP systolic 121–162; BP diastolic 73–94; PULSE 95–108; RESP 17–20; TEMP 96.1–97.5; O2SAT 93–99
[2017-06-21] MEDS: RESP: ALBUTEROL 2.5 MG/IPRATROPIUM 0.5 MG NEB (SCH) NEB ×7 (00:08→23:52)
[2017-06-21] MEDS ORDERED: CHLORHEXIDINE GLUCONATE 2 % 1 PACK (2 CLOTHS) TOPICAL PRN (03:30)
[2017-06-21] MEDS ORDERED: LACTATED RINGER'S 1000 ML IV PRN (03:30)
[2017-06-21] MEDS ORDERED: POVIDONE IODINE 5% (ANTISEPSIS KIT) 4 APPLICATIONS EACH NARE PRN (03:30)
[2017-06-21] MEDS: traMADol HCL 50 MG TAB PO PRN ×2 (04:19→17:29)
[2017-06-21] MEDS: PIPERACIL-TAZO 3.375 GM PREMIX 50 ML IV SCH ×3 (04:21→21:51)
[2017-06-21] MEDS: ONDANSETRON HCL 4 MG/2 ML VIAL IV PUSH PRN (06:05)
[2017-06-21] MEDS: RESP: BUDESONIDE 0.5 MG/2 ML NEB NEB SCH ×2 (08:00→19:12)
[2017-06-21] MEDS: INSULIN ASPART SUPPLEMENTAL SCALE SQ SCH ×4 (08:00→21:00)
[2017-06-21] MEDS: predniSONE 20 MG TAB PO SCH (08:08)
[2017-06-21] MEDS: FUROSEMIDE 20 MG TAB PO SCH (08:09)
[2017-06-21] MEDS: NICOTINE 14 MG/24 HR PATCH T-DERMAL SCH (08:09)
[2017-06-21] MEDS: BUDESONIDE-FORMOTEROL 80/4.5 MCG INHALER INH SCH ×2 (08:10→21:52)
[2017-06-21] MEDS: DOCUSATE SODIUM 50 MG/SENNA 8.6 MG TAB PO SCH ×2 (08:10→21:00)
[2017-06-21] MEDS ORDERED: POTASSIUM CHLORIDE 20 MEQ CONTROLLED RELEASE TAB PO SCH (09:00)
[2017-06-21] MEDS ORDERED: POTASSIUM CHLORIDE 10 MEQ CAP PO SCH (09:00)
[2017-06-21 09:55] LABS: CREATININE 0.99 MG/DL (0.50-1.00)
[2017-06-21] MEDS: ALBUMIN 25% INJ 100 ML IV SCH (10:52)
[2017-06-21] MEDS ORDERED: ONDANSETRON HCL 4 MG/2 ML VIAL IV ONE (12:00)
[2017-06-21] MEDS ORDERED: LIDOCAINE HCL 1% PF 5 ML SYRINGE OTHER ONE (12:00)
[2017-06-21] MEDS ORDERED: DEXAMETHASONE SOD PHOS 4 MG/ML VIAL IV ONE (12:00)
[2017-06-21] MEDS ORDERED: PHENYLEPH/NS 1000 MCG/10 ML SYR IV ONE (12:00)
[2017-06-21] MEDS ORDERED: ePHEDrine/NS 25 MG/5 ML SYRINGE IV ONE (12:00)
[2017-06-21] MEDS ORDERED: PROPOFOL 200 MG/20 ML AMP IV ONE (12:00)
[2017-06-21] MEDS ORDERED: METOPROLOL TARTRATE 5 MG/5 ML VIAL IV ONE (12:00)
[2017-06-21] MEDS ORDERED: MIDAZOLAM HCL 2 MG/2 ML VIAL ONE (13:41)
[2017-06-21] MEDS ORDERED: GENTAMICIN SULFATE 80 MG/2 ML VIAL ONE (13:45)
[2017-06-21] MEDS ORDERED: DO NOT ADM ANY ANTICOAGULANT DRUGS PRN (15:04)
[2017-06-21] MEDS ORDERED: *ONDANSETRON 4 MG VIAL PERIprocedural Use ONLY ONE (15:36)
[2017-06-21] MEDS: ENOXAPARIN SODIUM 30 MG/0.3 ML SYRINGE SQ SCH ×2 (16:30→16:37)
[2017-06-21] MEDS ORDERED: POTASSIUM CHLORIDE 25 MEQ EFFERVESCENT TAB PO ONE (17:30)
--- NOTE | 2017-06-21 17:33 | HHI.PR ---
Subjective Remarks Patient seen in room s/p wound vac change in OR Patient groggy offers no complaints at this time Objective Vitals Vital Signs Date Time Temp Pulse Resp B/P (MAP) Pulse Ox O2 Delivery O2 Flow Rate FiO2 06/21/17 16:20 96.4 95 17 138/85 (102) 98 06/21/17 12:00 96.8 102 18 149/78 (101) 96 06/21/17 08:23 94 Nasal Cannula 1.50 06/21/17 08:00 96.1 103 18 126/75 (92) 93 06/21/17 04:00 96.8 108 20 128/75 (92) 99 06/21/17 00:55 102 06/21/17 00:00 97.2 100 20 121/73 (89) 99 06/20/17 20:28 96 Nasal Cannula 2.00 06/20/17 20:00 96.6 103 20 114/72 (86) 94 06/21/17 06/21/17 2 15:00 23:00 07:00 Intake Total 150 ml 400 ml Output Total 10 ml 40 ml Balance 140 ml 360 ml IV Total 400 ml Other 150 ml Estimated Blood Loss 10 ml 40 ml Result Diagram: 06/20/17 0600 06/21/17 0851 Other Results Laboratory Tests Test 06/18/17 18:05 06/19/17 07:30 06/20/17 06:00 06/21/17 08:51 Potassium Level 3.8 MEQ/L 3.8 MEQ/L 3.3 MEQ/L Blood Urea Nitrogen 21 MG/DL 19 MG/DL Creatinine 1.00 MG/DL 0.92 MG/DL 0.99 MG/DL Random Glucose 74 MG/DL 62 MG/DL Calcium Level 8.8 MG/DL 8.9 MG/DL Sodium Level 144 MEQ/L 145 MEQ/L Chloride Level 110 MEQ/L 107 MEQ/L Carbon Dioxide Level 24.9 MEQ/L 32.3 MEQ/L Anion Gap 9 MEQ/L 6 MEQ/L Estimat Glomerular Filtration Rate 55 ML/MIN 61 ML/MIN 56 ML/MIN Random Vancomycin Level 26.0 COMMENT 16.4 COMMENT White Blood Count 6.9 TH/MM3 Red Blood Count 3.05 MIL/MM3 Hemoglobin 9.5 GM/DL Hematocrit 27.4 % Mean Corpuscular Volume 89.7 FL Mean Corpuscular Hemoglobin 31.1 PG Mean Corpuscular Hemoglobin Concent 34.7 % Red Cell Distribution Width 14.4 % Platelet Count 214 TH/MM3 Mean Platelet Volume 7.0 FL Neutrophils (%) (Auto) 77.3 % Lymphocytes (%) (Auto) 13.1 % Monocytes (%) (Auto) 7.9 % Eosinophils (%) (Auto) 1.5 % Basophils (%) (Auto) 0.2 % Neutrophils # (Auto) 5.3 TH/MM3 Lymphocytes # (Auto) 0.9 TH/MM3 Monocytes # (Auto) 0.5 TH/MM3 Eosinophils # (Auto) 0.1 TH/MM3 Basophils # (Auto) 0.0 TH/MM3 CBC Comment AUTO DIFF Differential Comment FINAL DIFF MANUAL Magnesium Level 2.1 MG/DL Imaging Last Impressions Tibia/Fibula X-Ray 06/13/17 0000 Signed Impressions: Service Date/Time: Tuesday, June 13, 2017 20:40 - CONCLUSION: 1. Ulceration at the lateral leg with soft tissue swelling. No bony abnormality. Kostas Rosado MD Chest X-Ray 06/13/17 0000 Signed Impressions: Service Date/Time: Tuesday, June 13, 2017 20:37 - CONCLUSION: 1. Mild hyperinflation. No active disease. Kostas Rosado MD Objective Remarks General: NAD, AAOx3. Groggy post anesthesia Chest: diminished Cardiac: mild tachycardia Abd: +BS, soft ND/NT Ext: RLE with wound vac in place, edema in bilateral UE with weeping fluid, slightly improved A/P Problem List: (1) Open leg wound ICD Codes: S81.809A - Unspecified open wound, unspecified lower leg, initial encounter Status: Chronic Plan: LLE nonhealing wound - Patient with large, necrotic open wound right lower extremity x 2 months. - Wound culture growing gram negative rods - Blood cultures with no growth x 1 day - Pt has been started on Zosyn and Vancomycin - General Surgery is following - Pt underwent surgical debridement with wound vac placement on 06/15/[address] Clark - Pt underwent a vac change on 06/17/17 and is planned for another surgery and wound vac change on 06/19 - Pt had wound vac change at the bedside on 06/19 and pt had a very difficult time with this due to pain and anxiety. Wound care nurse assisted the nurse during the bedside wound vac change - 06/21 patient was taken to OR for wound vac change. - She is have edema in bilateral UE with weeping, pt was given Lasix IV on . Renal function increased slightly to BUN 31/Cr 1.44 on 06/18. Encouraged the pt to drink a lot of fluids today. Cr improved to 1.0 on 06/19. Renal function stable today on Oral Lasix 20mg po daily. Add KCL 20meq daily - Ensure with each meal and at bedtime - Case discussed with Dr. Moreno on 06/19 after wound vac change and recommended to have wound vac changes in the OR - Pain control PRN - Constipation precautions, Vivian-Colace BID, MOM PRB, Dulcolax PRN - repeat BMP in AM - Supportive care Tachycardia - Outpt 2D echo (04/03/17) --> Mild concentric LVH, Estimated EF 50%, Grade 1 diastolic dysfunction, Moderate mitral valve regurg, Mild tricuspid valve regurg, Normal estimated PA pressure, 32.7mmHg - Telemetry with noted sinus tachycardia - EKG in the ED noted sinus tachycardia COPD/Chemical exposure hx in 08/2016 - PFT in 2017 with reported FEV1 of 0.51, 20% of predicted - Continue Symbicort BID and Combivent QID - Pt was given a dose of IV Solu-Medrol at admission - Prednisone 20mg po daily has been resumed. She has been on po steroids for quite some time. - Duonebs to Q4H - Budesonide Nebs BID - Supplemental O2 as needed Hyperglycemia - Pt likely with steroid induced hyperglycemia with her prolonged steroid use - Hgb A1C is 8.6% - She has been having some intermittent issues with hypoglycemia - NovoLog SSI, low dose - Accu checks Pharmacological DVT prophylaxis with heparin subQ, needs to be evaluated daily as she has been having surgery/wound vac changes frequently (2) COPD (chronic obstructive pulmonary disease) ICD Codes: J44.9 - Chronic obstructive pulmonary disease, unspecified Status: Chronic (3) Hyperglycemia ICD Codes: R73.9 - Hyperglycemia, unspecified Status: Acute Assessment and Plan Patient examined. Assessment and plan formulated with Yomaira Lemus PA-C. I agree with the above. Wound VAC change in the OR uneventful Will discuss further with Dr. Knight. Problem Qualifiers (1) Open leg wound: Qualified Codes: S81.801A - Unspecified open wound, right lower leg, initial encounter Radha Bansal Jun 21, 2017 17:33 Kin Parsons DO Jun 22, 2017 14:08
--- NOTE | 2017-06-21 19:20 | RADRPT ---
EXAM DATE/TIME: 06/21/2017 18:55 [facility] COMPARISON: ABDOMEN KUB ONLY, May 30, 2013, 8:18. INDICATIONS : Evaluate for distention. MEDICAL HISTORY : Chronic obstructive pulmonary disease. A-fib. Hx of breast cancer. SURGICAL HISTORY : Tonsillectomy. Appendectomy. Bowel resection. Right breast lumpectomy ENCOUNTER: Initial ACUITY: 1 day PAIN SCORE: 0/10 LOCATION: Bilateral Abdomen FINDINGS: Supine view of the abdomen was performed. The abdominal bowel gas pattern is normal. No abnormal ma sses, calcifications, or organomegaly is seen. The osseous structures are unremarkable. CONCLUSION: No acute disease. Joaquin Freed MD on June 21, 2017 at 19:16 Board Certified Radiologist. This report was verified electronically.
[2017-06-21] MEDS: REMOVE OLD PATCH T-DERMAL SCH (21:00)
[2017-06-21] MEDS: HEPARIN SODIUM - SQ 10,000 UNITS/ML VIAL SQ SCH (21:00)
[2017-06-22] VITALS (8 sets, daily range): BP systolic 116–157; BP diastolic 69–82; PULSE 90–114; RESP 18–20; TEMP 96.2–98.1; O2SAT 96–100
[2017-06-22] MEDS: traMADol HCL 50 MG TAB PO PRN ×4 (00:05→21:14)
[2017-06-22] MEDS: RESP: ALBUTEROL 2.5 MG/IPRATROPIUM 0.5 MG NEB (SCH) NEB ×2 (03:52→08:23)
[2017-06-22 06:49] LABS: BICARBONATE 29.6 MEQ/L (21.0-32.0); CALCIUM 8.7 MG/DL (8.5-10.1)
[2017-06-22] MEDS: RESP: BUDESONIDE 0.5 MG/2 ML NEB NEB SCH ×2 (08:00→19:18)
[2017-06-22] MEDS: BUDESONIDE-FORMOTEROL 80/4.5 MCG INHALER INH SCH ×2 (08:55→21:15)
[2017-06-22] MEDS: INSULIN ASPART SUPPLEMENTAL SCALE SQ SCH (08:55)
[2017-06-22] MEDS: FUROSEMIDE 20 MG TAB PO SCH (08:56)
[2017-06-22] MEDS: predniSONE 10 MG TAB PO SCH (08:56)
[2017-06-22] MEDS: DOCUSATE SODIUM 50 MG/SENNA 8.6 MG TAB PO SCH ×2 (08:57→21:00)
[2017-06-22] MEDS: HEPARIN SODIUM - SQ 10,000 UNITS/ML VIAL SQ SCH (08:57)
[2017-06-22] MEDS: NICOTINE 14 MG/24 HR PATCH T-DERMAL SCH (08:58)
[2017-06-22] MEDS: POTASSIUM CHLORIDE 25 MEQ EFFERVESCENT TAB PO SCH (08:58)
--- NOTE | 2017-06-22 09:10 | MP ---
cc: PETER CLARK DATE OF SURGERY: 06/21/2017 DATE OF 1950 PREOPERATIVE DIAGNOSIS Right leg wound. POSTOPERATIVE DIAGNOSIS Right leg wound. PROCEDURE Change of Vac dressing. SURGEON Peter Clark MD ANESTHESIA General LMA. ESTIMATED BLOOD LOSS Less than 10 ccs. FINDINGS The wound appeared to be healing well. No evidence of necrotic tissue or pus pockets. PROCEDURE The patient was brought to the operating room and placed on the operating room table in supine position. The left lower extremity was connected to SCDs. General anesthesia was instituted. The right leg was prepped and draped sterilely. The wound was evaluated with findings as above. The wound was then irrigated with saline. Bleeding was controlled with Bovie. A Vac dressing was then placed. The patient tolerated the procedure well. Peter Clark MD JS/TLL /3:31 PM /8:38 AM
--- NOTE | 2017-06-22 10:24 | HHI.PR ---
Subjective Remarks Patient offers no complaints Objective Vitals Vital Signs Date Time Temp Pulse Resp B/P (MAP) Pulse Ox O2 Delivery O2 Flow Rate FiO2 06/22/17 08:25 98 Nasal Cannula 2.00 06/22/17 08:00 97.3 93 18 139/72 (94) 100 06/22/17 04:00 97.9 98 20 153/82 (105) 96 06/22/17 00:00 98.1 90 18 148/71 (96) 96 06/21/17 20:00 97.5 97 18 162/94 (116) 96 06/21/17 19:16 95 Nasal Cannula 1.50 06/21/17 16:20 96.4 95 17 138/85 (102) 98 06/21/17 15:45 97.7 93 20 130/74 (92) 97 Nasal Cannula 2 06/21/17 15:30 118 24 131/71 (91) 95 Nasal Cannula 2 06/21/17 15:15 95 26 133/68 (89) 100 Aerosol Mask 06/21/17 15:03 96.9 97 18 128/65 (86) 100 Simple Mask 8 06/21/17 12:00 96.8 102 18 149/78 (101) 96 Result Diagram: 06/20/17 0600 06/22/17 0506 Other Results Laboratory Tests Test 06/20/17 06:00 06/21/17 08:51 06/22/17 05:06 White Blood Count 6.9 TH/MM3 Red Blood Count 3.05 MIL/MM3 Hemoglobin 9.5 GM/DL Hematocrit 27.4 % Mean Corpuscular Volume 89.7 FL Mean Corpuscular Hemoglobin 31.1 PG Mean Corpuscular Hemoglobin Concent 34.7 % Red Cell Distribution Width 14.4 % Platelet Count 214 TH/MM3 Mean Platelet Volume 7.0 FL Neutrophils (%) (Auto) 77.3 % Lymphocytes (%) (Auto) 13.1 % Monocytes (%) (Auto) 7.9 % Eosinophils (%) (Auto) 1.5 % Basophils (%) (Auto) 0.2 % Neutrophils # (Auto) 5.3 TH/MM3 Lymphocytes # (Auto) 0.9 TH/MM3 Monocytes # (Auto) 0.5 TH/MM3 Eosinophils # (Auto) 0.1 TH/MM3 Basophils # (Auto) 0.0 TH/MM3 CBC Comment AUTO DIFF Differential Comment FINAL DIFF MANUAL Blood Urea Nitrogen 19 MG/DL 17 MG/DL Creatinine 0.92 MG/DL 0.99 MG/DL 1.00 MG/DL Random Glucose 62 MG/DL 72 MG/DL Calcium Level 8.9 MG/DL 8.7 MG/DL Magnesium Level 2.1 MG/DL Sodium Level 145 MEQ/L 145 MEQ/L Potassium Level 3.3 MEQ/L 4.1 MEQ/L Chloride Level 107 MEQ/L 109 MEQ/L Carbon Dioxide Level 32.3 MEQ/L 29.6 MEQ/L Anion Gap 6 MEQ/L 6 MEQ/L Estimat Glomerular Filtration Rate 61 ML/MIN 56 ML/MIN 55 ML/MIN Random Vancomycin Level 16.4 COMMENT 18.6 COMMENT Imaging Last Impressions Tibia/Fibula X-Ray 06/13/17 0000 Signed Impressions: Service Date/Time: Tuesday, June 13, 2017 20:40 - CONCLUSION: 1. Ulceration at the lateral leg with soft tissue swelling. No bony abnormality. Kostas Rosado MD Chest X-Ray 06/13/17 0000 Signed Impressions: Service Date/Time: Tuesday, June 13, 2017 20:37 - CONCLUSION: 1. Mild hyperinflation. No active disease. Kostas Rosado MD Objective Remarks General: NAD, AAOx3. Groggy post anesthesia Resp/Chest: clear Cardiac: mild tachycardia Abd: +BS, soft ND/NT Ext: RLE with wound vac in place, edema in bilateral UE with weeping fluid, slightly improved A/P Problem List: (1) Open leg wound ICD Codes: S81.809A - Unspecified open wound, unspecified lower leg, initial encounter Status: Chronic Plan: LLE nonhealing wound - Patient with large, necrotic open wound right lower extremity x 2 months. - Wound culture growing gram negative rods - Blood cultures with no growth x 1 day - Pt has been started on Zosyn and Vancomycin - General Surgery is following - Pt underwent surgical debridement with wound vac placement on 06/15/[address] Clark - Pt underwent a vac change on 06/17/17 and is planned for another surgery and wound vac change on 06/19 - Pt had wound vac change at the bedside on 06/19 and pt had a very difficult time with this due to pain and anxiety. Wound care nurse assisted the nurse during the bedside wound vac change - 06/21 patient was taken to OR for wound vac change. - 06/22 dr Parsons discussed case with Dr. Clark plan for OR wound vac change Monday then again on Monday. After Monday will reevaluate. Surgery feels that after furhter granulation tissue form wound vac changes will not be as painful. - She is have edema in bilateral UE with weeping, pt was given Lasix IV on . Renal function increased slightly to BUN 31/Cr 1.44 on 06/18. Encouraged the pt to drink a lot of fluids today. Cr improved to 1.0 on 06/19. Renal function stable today on Oral Lasix 20mg po daily. Add KCL 20meq daily - Ensure with each meal and at bedtime - Case discussed with Dr. Clark on 06/19 after wound vac change and recommended to have wound vac changes in the OR - Pain control PRN - Constipation precautions, Vivian-Colace BID, MOM PRB, Dulcolax PRN, Patient has been refusing bowel regiment reports she has been having BMs every other day which is normal for her. - KUB 06/21 reveiewed no acute disease - repeat BMP in AM - Supportive care Tachycardia - Outpt 2D echo (04/03/17) --> Mild concentric LVH, Estimated EF 50%, Grade 1 diastolic dysfunction, Moderate mitral valve regurg, Mild tricuspid valve regurg, Normal estimated PA pressure, 32.7mmHg - Telemetry with noted sinus tachycardia - EKG in the ED noted sinus tachycardia COPD/Chemical exposure hx in 08/2016 - PFT in 2017 with reported FEV1 of 0.51, 20% of predicted - Continue Symbicort BID and Combivent QID - Pt was given a dose of IV Solu-Medrol at admission - Prednisone 20mg po daily has been resumed. She has been on po steroids for quite some time. discussed with patient trail of prednisone 20 mg then 10 mg every other day. Patient agrees. Will try to wean to 10 mg PO day if patient able to tolerate - Duonebs to Q4H - Budesonide Nebs BID - Supplemental O2 as needed Hyperglycemia - Pt likely with steroid induced hyperglycemia with her prolonged steroid use - Hgb A1C is 8.6% - She has been having some intermittent issues with hypoglycemia - NovoLog SSI, low dose- patient has not been requiring coverage will DC SSI coverage - will add snack at HS to prevent hypoglycemia - Accu checks Pharmacological DVT prophylaxis with heparin subQ, needs to be evaluated daily as she has been having surgery/wound vac changes frequently. Patient now refusing Lovenox and heparin for DVT prevention. Discussed the need for DVT prevention with her decreased mobility. Patient verbalized understanding of risks and continues to refuse chemical anticoagulation. will place SCD on left leg and request PT seven days per week. (2) COPD (chronic obstructive pulmonary disease) ICD Codes: J44.9 - Chronic obstructive pulmonary disease, unspecified Status: Chronic (3) Hyperglycemia ICD Codes: R73.9 - Hyperglycemia, unspecified Status: Acute Assessment and Plan Patient examined. Assessment and plan formulated with Radha Bansal PA-C. I agree with the above. Case d/w Dr. Knight (06/22/17) Pt to have wound VAC change in OR 06/23 and 06/26/17. Hopefully less painful by early next week and ready for discharge with bedside VAC changes. Problem Qualifiers (1) Open leg wound: Qualified Codes: S81.801A - Unspecified open wound, right lower leg, initial encounter Radha Bansal Jun 22, 2017 10:24 Kin Parsons DO Jun 22, 2017 14:10
[2017-06-22] MEDS ORDERED: VANCOMYCIN INJ 1,250 MG in SODIUM CHLOR 0.9% 250 ML INJ 250 ML IV SCH (12:00)
[2017-06-22] MEDS: RESP: ALBUTEROL 1.25 MG/3 ML NEB (PRN) NEB (19:59)
[2017-06-22] MEDS: REMOVE OLD PATCH T-DERMAL SCH (21:00)
[2017-06-23] VITALS (7 sets, daily range): BP systolic 123–150; BP diastolic 80–95; PULSE 93–119; RESP 17–20; TEMP 95.6–96.8; O2SAT 92–100
[2017-06-23] MEDS: traMADol HCL 50 MG TAB PO PRN ×3 (05:25→23:10)
[2017-06-23 05:51] LABS: AUTOMATED NEUTROPHIL # 11.4 TH/MM3 (1.8-7.7); BASOPHIL % 0.3 % (0.0-2.0); EOSINOPHIL # 0.2 TH/MM3 (0-0.4); EOSINOPHIL % 1.3 % (0.0-4.0); HEMATOCRIT 29.8 % (35.0-46.0); HEMOGLOBIN 10.1 GM/DL (11.6-15.3); LYMPH % 8.5 % (9.0-44.0); LYMPHOCYTE # 1.1 TH/MM3 (1.0-4.8); MEAN CELL VOLUME 90.4 FL (80.0-100.0); MEAN CORPUSCULAR HEMOGLOBIN 30.6 PG (27.0-34.0); MEAN CORPUSCULAR HGB CONC 33.8 % (32.0-36.0); MEAN PLATELET VOLUME 7.3 FL (7.0-11.0); MONO % 5.5 % (0.0-8.0); MONOCYTE # 0.7 TH/MM3 (0-0.9); NEUT % 84.4 % (16.0-70.0); PLATELET COUNT 238 TH/MM3 (150-450); RED BLOOD COUNT 3.29 MIL/MM3 (4.00-5.30); RED CELL DISTRIBUTION WIDTH 14.7 % (11.6-17.2); WHITE BLOOD COUNT 13.5 TH/MM3 (4.0-11.0)
[2017-06-23 06:17] LABS: BICARBONATE 32.2 MEQ/L (21.0-32.0); CREATININE 0.85 MG/DL (0.50-1.00)
[2017-06-23] MEDS: RESP: BUDESONIDE 0.5 MG/2 ML NEB NEB SCH ×2 (08:00→19:11)
[2017-06-23 08:27] LABS: BANDS 5 % (0-6); LYMPHOCYTES 12 % (9-44); METAMYELOCYTES 2 % (0-1); MONOCYTES 5 % (0-8); NEUTROPHIL # MANUAL DIFF 11.1 TH/MM3 (1.8-7.7); POLYS (SEG NEUTROPHILS) 75 % (16-70)
[2017-06-23] MEDS: POTASSIUM CHLORIDE 25 MEQ EFFERVESCENT TAB PO SCH (09:54)
[2017-06-23] MEDS: FUROSEMIDE 20 MG TAB PO SCH (09:54)
[2017-06-23] MEDS: ONDANSETRON HCL 4 MG/2 ML VIAL IV PUSH PRN (09:54)
[2017-06-23] MEDS: predniSONE 20 MG TAB PO SCH (09:54)
[2017-06-23] MEDS: BUDESONIDE-FORMOTEROL 80/4.5 MCG INHALER INH SCH ×2 (09:55→23:11)
[2017-06-23] MEDS: DOCUSATE SODIUM 50 MG/SENNA 8.6 MG TAB PO SCH ×2 (09:55→21:00)
[2017-06-23] MEDS: NICOTINE 14 MG/24 HR PATCH T-DERMAL SCH (09:57)
--- NOTE | 2017-06-23 10:07 | HHI.PR ---
Subjective Subjective Notes No complaints. Objective Vitals/I&O Vital Signs Date Time Temp Pulse Resp B/P (MAP) Pulse Ox O2 Delivery O2 Flow Rate FiO2 06/23/17 07:58 95.8 115 18 150/95 (113) 98 06/22/17 19:07 Nasal Cannula 2.00 Labs Laboratory Tests Test 06/23/17 04:25 White Blood Count 13.5 Red Blood Count 3.29 Hemoglobin 10.1 Hematocrit 29.8 Mean Corpuscular Volume 90.4 Mean Corpuscular Hemoglobin 30.6 Mean Corpuscular Hemoglobin Concent 33.8 Red Cell Distribution Width 14.7 Platelet Count 238 Mean Platelet Volume 7.3 Neutrophils (%) (Auto) 84.4 Lymphocytes (%) (Auto) 8.5 Monocytes (%) (Auto) 5.5 Eosinophils (%) (Auto) 1.3 Basophils (%) (Auto) 0.3 Neutrophils # (Auto) 11.4 Lymphocytes # (Auto) 1.1 Monocytes # (Auto) 0.7 Eosinophils # (Auto) 0.2 Basophils # (Auto) 0.0 CBC Comment AUTO DIFF Differential Total Cells Counted 100 Neutrophils % (Manual) 75 Band Neutrophils % 5 Lymphocytes % 12 Monocytes % 5 Eosinophils % 1 Neutrophils # (Manual) 11.1 Metamyelocytes 2 Differential Comment FINAL DIFF MANUAL Platelet Estimate NORMAL Platelet Morphology Comment NORMAL Red Cell Morphology Comment NORMAL Blood Urea Nitrogen 14 Creatinine 0.85 Random Glucose 75 Calcium Level 9.0 Sodium Level 144 Potassium Level 3.5 Chloride Level 106 Carbon Dioxide Level 32.2 Anion Gap 6 Estimat Glomerular Filtration Rate 67 Date/Time Source Procedure Growth Status 06/13/17 20:35 Blood Peripheral Aerobic Blood Culture - Final NO GROWTH IN 5 DAYS Complete 06/13/17 20:35 Blood Peripheral Anaerobic Blood Culture - Final NO GROWTH IN 5 DAYS Complete 06/13/17 20:00 Wound Leg Gram Stain - Final Complete 06/13/17 20:00 Wound Leg Wound Culture - Final Complete Radiology Last Impressions Tibia/Fibula X-Ray 06/13/17 0000 Signed Impressions: Service Date/Time: Tuesday, June 13, 2017 20:40 - CONCLUSION: 1. Ulceration at the lateral leg with soft tissue swelling. No bony abnormality. Kostas Rosado MD Chest X-Ray 06/13/17 0000 Signed Impressions: Service Date/Time: Tuesday, June 13, 2017 20:37 - CONCLUSION: 1. Mild hyperinflation. No active disease. Kostas Rosado MD Narrative Exam Awake and alert RLE vac in place good seal A/P Assessment and Plan 66 yo F with extensive RLE wound. Proceed with wound vac change in OR today. Michael Kaminski MD Jun 23, 2017 10:07
[2017-06-23] MEDS ORDERED: LORazepam 2 MG/ML VIAL IV PUSH ONE ×2 (10:15→11:00)
[2017-06-23] MEDS ORDERED: ACETAMINOPHEN 1000 MG/100 ML 100 ML IV ONE (10:52)
[2017-06-23] MEDS ORDERED: LACTATED RINGER'S 1000 ML INJ 1,000 ML IV ONE (12:00)
[2017-06-23] MEDS ORDERED: DEXAMETHASONE SOD PHOS 4 MG/ML VIAL IV ONE (12:00)
[2017-06-23] MEDS ORDERED: ONDANSETRON HCL 4 MG/2 ML VIAL IV ONE (12:00)
[2017-06-23] MEDS ORDERED: PROPOFOL 200 MG/20 ML AMP IV ONE (12:00)
--- NOTE | 2017-06-23 12:02 | HHI.PR ---
Subjective Remarks Pt c/o increased anxiety this AM. Pt c/o palpitations last night. Pt c/o some increased SOB. Objective Vitals Vital Signs Date Time Temp Pulse Resp B/P (MAP) Pulse Ox O2 Delivery O2 Flow Rate FiO2 06/23/17 07:58 95.8 115 18 150/95 (113) 98 06/23/17 00:00 96.5 118 18 123/88 (100) 98 06/22/17 20:00 96.2 110 18 157/80 (105) 98 06/22/17 19:07 97 Nasal Cannula 2.00 06/22/17 16:00 96.5 101 19 129/82 (98) 97 06/22/17 12:00 96.5 114 18 116/69 (85) 97 Result Diagram: 06/23/17 0425 06/23/17 0425 Imaging Last Impressions Abdomen X-Ray 06/21/17 0000 Signed Impressions: Service Date/Time: Wednesday, June 21, 2017 18:55 - CONCLUSION: No acute disease. Joaquin Freed MD Tibia/Fibula X-Ray 06/13/17 0000 Signed Impressions: Service Date/Time: Tuesday, June 13, 2017 20:40 - CONCLUSION: 1. Ulceration at the lateral leg with soft tissue swelling. No bony abnormality. Kostas Rosado MD Chest X-Ray 06/13/17 0000 Signed Impressions: Service Date/Time: Tuesday, June 13, 2017 20:37 - CONCLUSION: 1. Mild hyperinflation. No active disease. Kostas Rosado MD Objective Remarks General: NAD, AAOx3. Resp/Chest: clear Cardiac: mild tachycardia Abd: +BS, soft ND/NT Ext: RLE with wound vac in place, edema in bilateral UE with weeping fluid, slightly improved A/P Problem List: (1) Open leg wound ICD Codes: S81.809A - Unspecified open wound, unspecified lower leg, initial encounter Status: Acute Plan: LLE nonhealing wound - Patient with large, necrotic open wound right lower extremity x 2 months. - Wound culture growing gram negative rods - Blood cultures with no growth x 1 day - Pt has been started on Zosyn and Vancomycin - General Surgery is following - Pt underwent surgical debridement with wound vac placement on 06/15/[address] Clark - Pt underwent a vac change on 06/17/17, 06/19, 06/21, and again today (06/23) - Pt painful with bedside VAC change 06/19. Pt had VAC change in OR 06/21 and 06/23 - next OR VAC change 06/26 - Case d/w Dr. Kaminski (06/23) - anticipate d/c to SNF early next week - Pt with B/L LE edema and weeping. Cr increased following IV lasix, Cr spiked at 1.44 (06/18) - Pt now on PO lasix & renal fxn is stable - Ensure with each meal and at bedtime - Pain control PRN - Constipation precautions, Vivian-Colace BID, MOM PRB, Dulcolax PRN - Monitor labs daily - Supportive care - SCD on non-surgical leg Tachycardia - Outpt 2D echo (04/03/17) --> Mild concentric LVH, Estimated EF 50%, Grade 1 diastolic dysfunction, Moderate mitral valve regurg, Mild tricuspid valve regurg, Normal estimated PA pressure, 32.7mmHg - Telemetry with noted sinus tachycardia - EKG in the ED noted sinus tachycardia - repeat EKG (06/23) --> sinus tachycardia, 109, with occasional PVC - suspect pain, anxiety, COPD, and prednisone are all contributing COPD/Chemical exposure hx in 08/2016 - PFT in 2016 with reported FEV1 of 0.51, 20% of predicted - Continue Symbicort BID and Combivent QID - Pt was given a dose of IV Solu-Medrol at admission - Prednisone 20mg alt with 10mg every other day - Duonebs to q6h while awake - Budesonide Nebs BID - Supplemental O2 as needed - repeat CXR in AM Hyperglycemia - Pt likely with steroid induced hyperglycemia with her prolonged steroid use - Hgb A1C is 8.6% - She has been having some intermittent issues with hypoglycemia - NovoLog SSI, low dose - Accu checks (2) COPD (chronic obstructive pulmonary disease) ICD Codes: J44.9 - Chronic obstructive pulmonary disease, unspecified Status: Chronic (3) Hyperglycemia ICD Codes: R73.9 - Hyperglycemia, unspecified Status: Acute Problem Qualifiers (1) Open leg wound: Qualified Codes: S81.801A - Unspecified open wound, right lower leg, initial encounter Kin Parsons DO Jun 23, 2017 12:01
--- NOTE | 2017-06-23 13:04 | PD.OP ---
cc: Michael Kaminski MD Operative Report Date of Surgery: Jun 23, 2017 Preoperative Diagnosis: (1) Open leg wound Postoperative Diagnosis: (1) Open leg wound Procedure: Wound vac change circumferential lower right leg wound Anesthesia: MAC Surgeon: Michael Kaminski [employer] Attendant(s): Staff Operation and Findings: EBL: 10 cc Operative findings: Extensive loss of skin and subcutaneous tissue in the right lower leg. The surrounding skin is thinned and there is some ecchymoses. There is no obvious necrosis present. Procedure in detail: The patient was taken to the operating room placed in the supine position. Mac anesthesia was induced. The right lower extremity was prepped and draped in usual sterile fashion and a surgical timeout was performed to verify correct patient procedure and site. The previous wound VAC been removed prior to draping. There was extensive wound circumferentially around the calf and [place]. There was minimal granulation tissue. There did appear to be healthy blood supply. There was no obvious necrotic tissue present. An extra large wound VAC sponge was cut to size and applied on the wound. The drape was applied using a clear [place] with a good seal. The suction disc was placed superior medially and inferiorly laterally and placed to -125 mm of suction. The patient tolerated procedure well was taken to PACU in stable condition. Michael Kaminski MD Jun 23, 2017 13:04
[2017-06-23] MEDS ORDERED: DO NOT ADM ANY ANTICOAGULANT DRUGS PRN (13:08)
[2017-06-23] MEDS ORDERED: *MEPERIDINE 25 MG INJ VIAL PERIprocedural Use ONLY ONE (13:10)
[2017-06-23] MEDS ORDERED: MIDAZOLAM HCL 2 MG/2 ML VIAL ONE (13:13)
[2017-06-23] MEDS: RESP: ALBUTEROL 2.5 MG/IPRATROPIUM 0.5 MG NEB (SCH) NEB ×2 (13:52→19:13)
--- NOTE | 2017-06-23 13:59 | RADRPT ---
EXAM DATE/TIME: 06/23/2017 13:23 [facility] COMPARISON: No previous studies available for comparison. INDICATIONS : Post central line placement. MEDICAL HISTORY : Chronic obstructive pulmonary disease. A-fib. Hx of breast cancer. SURGICAL HISTORY : Tonsillectomy. Appendectomy. Bowel resection. Right breast lumpectomy. ENCOUNTER: Subsequent ACUITY: 1 day PAIN SCORE: Non-responsive. LOCATION: Bilateral chest FINDINGS: Right IJ central line with tip in the external junction. No significant pneumothorax. Mild airspace d isease in the left lower lobe. Cardiomediastinal contours are within normal limits. Bony thorax is in tact. CONCLUSION: 1. Right IJ central line in good position without pneumothorax. 2. Mild left lower lung zone airspace disease, likely atelectasis. Abhay Downey MD on June 23, 2017 at 13:55 Board Certified Radiologist. This report was verified electronically.
[2017-06-23] MEDS: REMOVE OLD PATCH T-DERMAL SCH (21:00)
--- NOTE | 2017-06-23 21:46 | EKG ---
Date Performed: 06/23/2017 Time Performed: 10:44:22 PTAGE: 66 years EKG: SINUS TACHYCARDIA WITH OCCASIONAL VENTRICULAR PREMATURE COMPLEXES WITH OCCASIONAL SUPRAVENT RICULAR PREMATURE COMPLEXES Compared to previous tracing, ectopic beats are new ABNORMAL RHYTHM ECG PREVIOUS TRACING : 06/13/2017 17.47 DOCTOR: Awais Vallejo Interpretating Date/Time 06/23/2017 21:44:26
[2017-06-24] VITALS (9 sets, daily range): BP systolic 113–132; BP diastolic 62–89; PULSE 97–144; RESP 16–20; TEMP 96.6–97.8; O2SAT 91–100
[2017-06-24] MEDS: traMADol HCL 50 MG TAB PO PRN ×3 (06:11→19:30)
--- NOTE | 2017-06-24 08:26 | RADRPT ---
EXAM DATE/TIME: 06/24/2017 08:04 [facility] COMPARISON: CHEST SINGLE AP, June 23, 2017, 13:23. INDICATIONS : Short of Breath MEDICAL HISTORY : Chronic obstructive pulmonary disease. A-fib. Hx of breast cancer. SURGICAL HISTORY : Tonsillectomy. Appendectomy. Bowel resection. Right breast lumpectomy. ENCOUNTER: Subsequent ACUITY: 2 weeks PAIN SCORE: 0/10 LOCATION: chest FINDINGS: PA and lateral views of the chest demonstrate the lungs to be hyperaerated without evidence of mass, infiltrate or effusion. Small nodular density in the right upper lobe. Heart borderline enlarged. Rig ht jugular central line tip in SVC. The cardiomediastinal contours are unremarkable. Osseous structu res are intact. CONCLUSION: 1. Hyperinflation without infiltrate. 2. Small nodule right upper lobe. Outpatient CT chest recommended. David Maya MD on June 24, 2017 at 8:20 Board Certified Radiologist. This report was verified electronically.
[2017-06-24] MEDS: RESP: ALBUTEROL 2.5 MG/IPRATROPIUM 0.5 MG NEB (SCH) NEB ×3 (08:59→20:44)
[2017-06-24] MEDS: RESP: BUDESONIDE 0.5 MG/2 ML NEB NEB SCH ×2 (08:59→20:40)
[2017-06-24] MEDS: DOCUSATE SODIUM 50 MG/SENNA 8.6 MG TAB PO SCH ×2 (09:00→19:31)
[2017-06-24] MEDS: NICOTINE 14 MG/24 HR PATCH T-DERMAL SCH (09:00)
[2017-06-24] MEDS: BUDESONIDE-FORMOTEROL 80/4.5 MCG INHALER INH SCH ×2 (09:00→19:31)
[2017-06-24] MEDS: predniSONE 10 MG TAB PO SCH (09:05)
[2017-06-24] MEDS: FUROSEMIDE 20 MG TAB PO SCH (09:06)
[2017-06-24] MEDS: POTASSIUM CHLORIDE 25 MEQ EFFERVESCENT TAB PO SCH (09:06)
--- NOTE | 2017-06-24 12:32 | HHI.PR ---
Subjective Remarks Patient reports more pain today after wound vac change yesterday. HR elevated 110- -> 144 bpm Objective Vitals Vital Signs Date Time Temp Pulse Resp B/P (MAP) Pulse Ox O2 Delivery O2 Flow Rate FiO2 06/24/17 12:00 97.8 120 17 122/73 (89) 100 06/24/17 09:01 98 Nasal Cannula 3.00 06/24/17 08:00 96.7 110 17 113/69 (84) 100 06/24/17 00:00 96.9 144 20 127/84 (98) 97 06/23/17 20:00 96.4 119 20 140/81 (100) 100 06/23/17 19:13 92 Nasal Cannula 3.00 06/23/17 16:00 96.8 117 19 139/80 (99) 92 06/23/17 14:03 95.6 93 17 129/81 (97) 100 06/23/17 13:54 98 Nasal Cannula 2.00 06/23/17 13:40 96 19 125/67 (86) 100 Nasal Cannula 3 06/23/17 13:30 97 19 127/69 (88) 100 Nasal Cannula 3 06/23/17 13:15 92 19 132/69 (90) 100 Nasal Cannula 3 06/23/17 13:08 98.2 100 16 163/85 (111) 100 Nasal Cannula 3 Result Diagram: 06/23/17 0425 06/23/17 0425 Other Results Laboratory Tests Test 06/22/17 05:06 06/23/17 04:25 Blood Urea Nitrogen 17 MG/DL 14 MG/DL Creatinine 1.00 MG/DL 0.85 MG/DL Random Glucose 72 MG/DL 75 MG/DL Calcium Level 8.7 MG/DL 9.0 MG/DL Sodium Level 145 MEQ/L 144 MEQ/L Potassium Level 4.1 MEQ/L 3.5 MEQ/L Chloride Level 109 MEQ/L 106 MEQ/L Carbon Dioxide Level 29.6 MEQ/L 32.2 MEQ/L Anion Gap 6 MEQ/L 6 MEQ/L Estimat Glomerular Filtration Rate 55 ML/MIN 67 ML/MIN Random Vancomycin Level 18.6 COMMENT White Blood Count 13.5 TH/MM3 Red Blood Count 3.29 MIL/MM3 Hemoglobin 10.1 GM/DL Hematocrit 29.8 % Mean Corpuscular Volume 90.4 FL Mean Corpuscular Hemoglobin 30.6 PG Mean Corpuscular Hemoglobin Concent 33.8 % Red Cell Distribution Width 14.7 % Platelet Count 238 TH/MM3 Mean Platelet Volume 7.3 FL Neutrophils (%) (Auto) 84.4 % Lymphocytes (%) (Auto) 8.5 % Monocytes (%) (Auto) 5.5 % Eosinophils (%) (Auto) 1.3 % Basophils (%) (Auto) 0.3 % Neutrophils # (Auto) 11.4 TH/MM3 Lymphocytes # (Auto) 1.1 TH/MM3 Monocytes # (Auto) 0.7 TH/MM3 Eosinophils # (Auto) 0.2 TH/MM3 Basophils # (Auto) 0.0 TH/MM3 CBC Comment AUTO DIFF Differential Total Cells Counted 100 Neutrophils % (Manual) 75 % Band Neutrophils % 5 % Lymphocytes % 12 % Monocytes % 5 % Eosinophils % 1 % Neutrophils # (Manual) 11.1 TH/MM3 Metamyelocytes 2 % Differential Comment FINAL DIFF MANUAL Platelet Estimate NORMAL Platelet Morphology Comment NORMAL Red Cell Morphology Comment NORMAL Imaging Last Impressions Abdomen X-Ray 06/21/17 0000 Signed Impressions: Service Date/Time: Wednesday, June 21, 2017 18:55 - CONCLUSION: No acute disease. Joaquin Freed MD Tibia/Fibula X-Ray 06/13/17 0000 Signed Impressions: Service Date/Time: Tuesday, June 13, 2017 20:40 - CONCLUSION: 1. Ulceration at the lateral leg with soft tissue swelling. No bony abnormality. Kostas Rosado MD Chest X-Ray 06/13/17 0000 Signed Impressions: Service Date/Time: Tuesday, June 13, 2017 20:37 - CONCLUSION: 1. Mild hyperinflation. No active disease. Kostas Rosado MD Objective Remarks General: NAD, AAOx3. Resp/Chest: poor air entry diminished through out Cardiac: tachycardic Abd: +BS, soft ND/NT Ext: RLE with wound vac in place, edema in bilateral UE, improving A/P Problem List: (1) Open leg wound ICD Codes: S81.809A - Unspecified open wound, unspecified lower leg, initial encounter Status: Acute Plan: LLE nonhealing wound - Patient with large, necrotic open wound right lower extremity x 2 months. - Wound culture growing gram negative rods - Blood cultures with no growth x 1 day - Pt has been started on Zosyn and Vancomycin - General Surgery is following - Pt underwent surgical debridement with wound vac placement on 06/15/[address] Clark - Pt underwent a vac change on 06/17/17, 06/19, 06/21, and again today (06/23) - Pt painful with bedside VAC change 06/19. Pt had VAC change in OR 06/21 and 06/23 - next OR VAC change 06/26 - Case d/w Dr. Kaminski (06/23) - anticipate d/c to SNF early next week - Pt with B/L LE edema and weeping. Cr increased following IV lasix, Cr spiked at 1.44 (06/18) - Pt now on PO lasix & renal fxn is stable - Ensure with each meal and at bedtime - Pain control PRN - Constipation precautions, Vivian-Colace BID, MOM PRB, Dulcolax PRN - Monitor labs daily - Supportive care - SCD on non-surgical leg Tachycardia - Outpt 2D echo (04/03/17) --> Mild concentric LVH, Estimated EF 50%, Grade 1 diastolic dysfunction, Moderate mitral valve regurg, Mild tricuspid valve regurg, Normal estimated PA pressure, 32.7mmHg - Telemetry with noted sinus tachycardia - EKG in the ED noted sinus tachycardia - repeat EKG (06/23) --> sinus tachycardia, 109, with occasional PVC - patient more tachycardic today 110 -> 144 bpm, patient reports more pain in LLE today - continue Ultram PRN. add acetaminophen scheduled. Patient does not want stronger pain medication. She is fearful of sedation/side effects - place continuous telemetry for closer monitoring of HR and rhythm - suspect pain, anxiety, COPD, and prednisone are all contributing COPD/Chemical exposure hx in 08/2016 - PFT in 2017 with reported FEV1 of 0.51, 20% of predicted - Continue Symbicort BID and Combivent QID - Pt was given a dose of IV Solu-Medrol at admission - Prednisone 20mg alt with 10mg every other day - Duonebs to q6h while awake - Budesonide Nebs BID - Supplemental O2 as needed - repeat CXR (06/24) hyperinflation without infiltrate. Small nodule RUL recommend outpatient follow up CT - CT chest without contrast requested Hyperglycemia - Pt likely with steroid induced hyperglycemia with her prolonged steroid use - Hgb A1C is 8.6% - She has been having some intermittent issues with hypoglycemia - NovoLog SSI Dc'd (06/22) - Accu checks (2) COPD (chronic obstructive pulmonary disease) ICD Codes: J44.9 - Chronic obstructive pulmonary disease, unspecified Status: Chronic (3) Hyperglycemia ICD Codes: R73.9 - Hyperglycemia, unspecified Status: Acute Assessment and Plan Patient examined. Assessment and plan formulated with Radha Bansal PA-C. I agree with the above. Problem Qualifiers (1) Open leg wound: Qualified Codes: S81.801A - Unspecified open wound, right lower leg, initial encounter Radha Bansal Jun 24, 2017 12:32 Kin Parsons DO Jun 28, 2017 11:25
[2017-06-24] MEDS ORDERED: ALPRAZolam 0.25 MG TAB PO PRN (14:45)
[2017-06-24] MEDS: ACETAMINOPHEN 325 MG TAB PO SCH ×2 (14:50→19:31)
--- NOTE | 2017-06-24 16:58 | RADRPT ---
EXAM DATE/TIME: 06/24/2017 16:21 [facility] COMPARISON: CHEST PA & LAT, June 24, 2017, 8:04. INDICATIONS : Abnormal chest x-ray. RADIATION DOSE: 6.9 CTDIvol (mGy) MEDICAL HISTORY : Cardiovascular disease. SURGICAL HISTORY : Tubal ligation. ENCOUNTER: Initial ACUITY: 1 day PAIN SCALE: 0/10 LOCATION: Bilateral chest TECHNIQUE: Volumetric scanning of the chest was performed. Using automated exposure control and adjustment of t he mA and/or kV according to patient size, radiation dose was kept as low as reasonably achievable to obtain optimal diagnostic quality images. DICOM format image data is available electronically for r eview and comparison. Follow-up recommendations for detected pulmonary nodules are based at a minimum on nodule size and pa tient risk factors according to Fleischner Society Guidelines. FINDINGS: There are areas of scarring in the lungs bilaterally the most pronounced areas in the right upper lob e posteriorly somewhat nodular measures 6 mm in size. There are additional tiny 2-3 mm nodules in rig ht middle lobe, lingula probably inflammatory and or chronic. Additional scarring is seen in both aylin g bases. There is no pleural effusion. No appreciable pathological adenopathy is seen within the med iastinum. Coronary artery calcifications are seen typically seen with CAD and need to be evaluated cl inically. There are old healed rib fractures in the left chest. CONCLUSION: Areas of scarring in the lungs with COPD and scattered tiny nodules most likely benig n, repeat noncontrast chest CT is suggested in 6 months as a conservative follow up. Sujit Bunch MD on June 24, 2017 at 16:52 Board Certified Radiologist. This report was verified electronically.
[2017-06-24] MEDS: REMOVE OLD PATCH T-DERMAL SCH (19:31)
[2017-06-25] VITALS (10 sets, daily range): BP systolic 102–145; BP diastolic 64–93; PULSE 91–133; RESP 16–18; TEMP 95.7–97.6; O2SAT 96–100
[2017-06-25] MEDS: traMADol HCL 50 MG TAB PO PRN ×4 (02:26→20:04)
[2017-06-25] MEDS: ACETAMINOPHEN 325 MG TAB PO SCH ×4 (02:27→20:03)
[2017-06-25 06:23] LABS: AUTOMATED NEUTROPHIL # 6.2 TH/MM3 (1.8-7.7); BASOPHIL % 0.5 % (0.0-2.0); EOSINOPHIL # 0.1 TH/MM3 (0-0.4); EOSINOPHIL % 1.8 % (0.0-4.0); HEMATOCRIT 27.3 % (35.0-46.0); HEMOGLOBIN 9.2 GM/DL (11.6-15.3); LYMPH % 18.6 % (9.0-44.0); LYMPHOCYTE # 1.6 TH/MM3 (1.0-4.8); MEAN CELL VOLUME 90.2 FL (80.0-100.0); MEAN CORPUSCULAR HEMOGLOBIN 30.3 PG (27.0-34.0); MEAN CORPUSCULAR HGB CONC 33.5 % (32.0-36.0); MEAN PLATELET VOLUME 7.1 FL (7.0-11.0); MONO % 5.8 % (0.0-8.0); MONOCYTE # 0.5 TH/MM3 (0-0.9); NEUT % 73.3 % (16.0-70.0); PLATELET COUNT 256 TH/MM3 (150-450); RED BLOOD COUNT 3.03 MIL/MM3 (4.00-5.30); RED CELL DISTRIBUTION WIDTH 14.9 % (11.6-17.2); WHITE BLOOD COUNT 8.4 TH/MM3 (4.0-11.0)
[2017-06-25 06:40] LABS: CALCIUM 8.3 MG/DL (8.5-10.1)
[2017-06-25] MEDS: predniSONE 20 MG TAB PO SCH (08:11)
[2017-06-25] MEDS: BUDESONIDE-FORMOTEROL 80/4.5 MCG INHALER INH SCH ×2 (08:15→20:03)
[2017-06-25] MEDS: NICOTINE 14 MG/24 HR PATCH T-DERMAL SCH (08:17)
[2017-06-25] MEDS: DOCUSATE SODIUM 50 MG/SENNA 8.6 MG TAB PO SCH ×2 (08:17→20:03)
[2017-06-25] MEDS: RESP: ALBUTEROL 2.5 MG/IPRATROPIUM 0.5 MG NEB (SCH) NEB ×3 (08:55→20:46)
[2017-06-25 09:05] LABS: CORRECTED NUCLEATED RBC 1 /100 WBC (0-0); LYMPHOCYTES 12 % (9-44); METAMYELOCYTES 1 % (0-1); MONOCYTES 4 % (0-8); NUCLEATED RED BLOOD CELL 1 (0-0); POLYS (SEG NEUTROPHILS) 82 % (16-70)
[2017-06-25] MEDS: FUROSEMIDE 20 MG TAB PO SCH (11:17)
[2017-06-25] MEDS: POTASSIUM CHLORIDE 25 MEQ EFFERVESCENT TAB PO SCH (11:18)
--- NOTE | 2017-06-25 13:24 | HHI.PR ---
Subjective Remarks Patient reports pain controlled after she takes Ultram anxiety improve after Xanax offers no new complaints Objective Vitals Vital Signs Date Time Temp Pulse Resp B/P (MAP) Pulse Ox O2 Delivery O2 Flow Rate FiO2 06/25/17 12:00 96.8 121 17 134/74 (94) 99 06/25/17 08:59 98 Nasal Cannula 2.00 06/25/17 08:00 96.4 116 17 115/76 (89) 99 06/25/17 04:00 96.7 108 16 136/93 (107) 100 06/25/17 03:56 91 06/25/17 00:00 95.7 101 16 102/74 (83) 100 06/24/17 23:57 98 06/24/17 20:56 Nasal Cannula 2.00 Humidified 06/24/17 20:46 Nasal Cannula 3.00 06/24/17 20:12 108 06/24/17 20:00 96.6 97 16 127/79 (95) 97 06/24/17 16:00 97.4 130 17 132/62 (85) 99 06/24/17 13:24 96.8 138 17 128/89 (102) 91 Result Diagram: 06/25/17 0600 06/25/17 0600 Other Results Laboratory Tests Test 06/23/17 04:25 06/25/17 06:00 06/25/17 11:00 White Blood Count 13.5 TH/MM3 8.4 TH/MM3 Red Blood Count 3.29 MIL/MM3 3.03 MIL/MM3 Hemoglobin 10.1 GM/DL 9.2 GM/DL Hematocrit 29.8 % 27.3 % Mean Corpuscular Volume 90.4 FL 90.2 FL Mean Corpuscular Hemoglobin 30.6 PG 30.3 PG Mean Corpuscular Hemoglobin Concent 33.8 % 33.5 % Red Cell Distribution Width 14.7 % 14.9 % Platelet Count 238 TH/MM3 256 TH/MM3 Mean Platelet Volume 7.3 FL 7.1 FL Neutrophils (%) (Auto) 84.4 % 73.3 % Lymphocytes (%) (Auto) 8.5 % 18.6 % Monocytes (%) (Auto) 5.5 % 5.8 % Eosinophils (%) (Auto) 1.3 % 1.8 % Basophils (%) (Auto) 0.3 % 0.5 % Neutrophils # (Auto) 11.4 TH/MM3 6.2 TH/MM3 Lymphocytes # (Auto) 1.1 TH/MM3 1.6 TH/MM3 Monocytes # (Auto) 0.7 TH/MM3 0.5 TH/MM3 Eosinophils # (Auto) 0.2 TH/MM3 0.1 TH/MM3 Basophils # (Auto) 0.0 TH/MM3 0.0 TH/MM3 CBC Comment AUTO DIFF AUTO DIFF Differential Total Cells Counted 100 100 Neutrophils % (Manual) 75 % 82 % Band Neutrophils % 5 % Lymphocytes % 12 % 12 % Monocytes % 5 % 4 % Eosinophils % 1 % 1 % Neutrophils # (Manual) 11.1 TH/MM3 7.0 TH/MM3 Metamyelocytes 2 % 1 % Differential Comment FINAL DIFF MANUAL FINAL DIFF MANUAL Platelet Estimate NORMAL NORMAL Platelet Morphology Comment NORMAL NORMAL Red Cell Morphology Comment NORMAL NORMAL Blood Urea Nitrogen 14 MG/DL 13 MG/DL Creatinine 0.85 MG/DL 1.00 MG/DL Random Glucose 75 MG/DL 75 MG/DL Calcium Level 9.0 MG/DL 8.3 MG/DL Sodium Level 144 MEQ/L 143 MEQ/L Potassium Level 3.5 MEQ/L 3.9 MEQ/L Chloride Level 106 MEQ/L 103 MEQ/L Carbon Dioxide Level 32.2 MEQ/L 35.0 MEQ/L Anion Gap 6 MEQ/L 5 MEQ/L Estimat Glomerular Filtration Rate 67 ML/MIN 55 ML/MIN Nucleated Red Blood Cells 1 /100 WBC Basophilic Stippling FAINT Magnesium Level 2.0 MG/DL Troponin I 0.02 NG/ML Imaging Last Impressions Abdomen X-Ray 06/21/17 0000 Signed Impressions: Service Date/Time: Wednesday, June 21, 2017 18:55 - CONCLUSION: No acute disease. Joaquin Freed MD Tibia/Fibula X-Ray 06/13/17 0000 Signed Impressions: Service Date/Time: Tuesday, June 13, 2017 20:40 - CONCLUSION: 1. Ulceration at the lateral leg with soft tissue swelling. No bony abnormality. Kostas Rosado MD Chest X-Ray 06/13/17 0000 Signed Impressions: Service Date/Time: Tuesday, June 13, 2017 20:37 - CONCLUSION: 1. Mild hyperinflation. No active disease. Kostas Rosado MD Objective Remarks General: NAD, AAOx3. Resp/Chest: poor air entry diminished through out Cardiac: tachycardic Abd: +BS, soft ND/NT Ext: RLE with wound vac in place, edema in bilateral UE, improving A/P Problem List: (1) Open leg wound ICD Codes: S81.809A - Unspecified open wound, unspecified lower leg, initial encounter Status: Acute Plan: LLE nonhealing wound - Patient with large, necrotic open wound right lower extremity x 2 months. - Wound culture growing gram negative rods - Blood cultures with no growth x 1 day - Pt has been started on Zosyn and Vancomycin - General Surgery is following - Pt underwent surgical debridement with wound vac placement on 06/15/[address] Clark - Pt underwent a vac change on 06/17/17, 06/19, 06/21, and again today (06/23) - Pt painful with bedside VAC change 06/19. Pt had VAC change in OR 06/21 and 06/23 - next OR VAC change 06/26 - Case d/w Dr. Kaminski (06/23) - anticipate d/c to SNF early next week - Pt with B/L LE edema and weeping. Cr increased following IV lasix, Cr spiked at 1.44 (06/18) - Pt now on PO lasix & renal fxn is stable - Ensure with each meal and at bedtime - Pain control PRN - Constipation precautions, Vivian-Colace BID, MOM PRB, Dulcolax PRN - Monitor labs daily - Supportive care - SCD on non-surgical leg Tachycardia - Outpt 2D echo (04/03/17) --> Mild concentric LVH, Estimated EF 50%, Grade 1 diastolic dysfunction, Moderate mitral valve regurg, Mild tricuspid valve regurg, Normal estimated PA pressure, 32.7mmHg - Telemetry with noted sinus tachycardia - EKG in the ED noted sinus tachycardia - repeat EKG (06/23) --> sinus tachycardia, 109, with occasional PVC - patient more tachycardic today 110 -> 144 bpm, patient reports more pain in LLE today - continue Ultram PRN. add acetaminophen scheduled. Patient does not want stronger pain medication. She is fearful of sedation/side effects - place continuous telemetry for closer monitoring of HR and rhythm - suspect pain, anxiety, COPD, and prednisone are all contributing - add scheduled xanax start 06/25 - lexiscan requested per Dr. Parsons, Patient refusing COPD/Chemical exposure hx in 08/2016 - PFT in 2017 with reported FEV1 of 0.51, 20% of predicted - Continue Symbicort BID and Combivent QID - Pt was given a dose of IV Solu-Medrol at admission - Prednisone 20mg alt with 10mg every other day -> (06/25) will transition to Prednisone 10 mg daily - Duonebs to q6h while awake - Budesonide Nebs BID - Supplemental O2 as needed - repeat CXR (06/24) hyperinflation without infiltrate. Small nodule RUL recommend outpatient follow up CT - CT chest without contrast (06/24) Areas of scarring in the lungs with COPD and scattered tiny nodules most likely benign, repeat noncontrast chest CT is suggested in 6 months as a conservative follow up Hyperglycemia - Pt likely with steroid induced hyperglycemia with her prolonged steroid use - Hgb A1C is 8.6% - She has been having some intermittent issues with hypoglycemia - NovoLog SSI Dc'd (06/22) - Accu checks (2) COPD (chronic obstructive pulmonary disease) ICD Codes: J44.9 - Chronic obstructive pulmonary disease, unspecified Status: Chronic (3) Hyperglycemia ICD Codes: R73.9 - Hyperglycemia, unspecified Status: Acute Assessment and Plan Patient examined. Assessment and plan formulated with Radha Bansal PA-C. I agree with the above. Problem Qualifiers (1) Open leg wound: Qualified Codes: S81.801A - Unspecified open wound, right lower leg, initial encounter Radha Bansal Jun 25, 2017 13:24 Kin Parsons DO Jun 28, 2017 11:26
[2017-06-25] MEDS ORDERED: ALPRAZolam 0.25 MG TAB PO SCH ×2 (14:00→22:00)
[2017-06-25] MEDS ORDERED: PILL SPLITTER OTHER PRN (14:15)
[2017-06-25] MEDS: ALPRAZolam 0.25 MG TAB PO SCH ×2 (15:53→22:00)
[2017-06-25] MEDS: REMOVE OLD PATCH T-DERMAL SCH (20:03)
[2017-06-25] MEDS: RESP: BUDESONIDE 0.5 MG/2 ML NEB NEB SCH (20:49)
[2017-06-26] VITALS (8 sets, daily range): BP systolic 128–149; BP diastolic 67–91; PULSE 99–131; RESP 18–20; TEMP 97–98; O2SAT 94–99
[2017-06-26] MEDS: ACETAMINOPHEN 325 MG TAB PO SCH ×3 (00:01→08:00)
[2017-06-26] MEDS ORDERED: METOPROLOL TARTRATE 25 MG TAB PO PRN (01:15)
[2017-06-26] MEDS ORDERED: LACTATED RINGER'S 1000 ML IV PRN (01:15)
[2017-06-26] MEDS ORDERED: CHLORHEXIDINE GLUCONATE 2 % 1 PACK (2 CLOTHS) TOPICAL PRN (01:15)
[2017-06-26] MEDS ORDERED: POVIDONE IODINE 5% (ANTISEPSIS KIT) 4 APPLICATIONS EACH NARE PRN (01:15)
[2017-06-26] MEDS: traMADol HCL 50 MG TAB PO PRN ×3 (01:50→23:05)
[2017-06-26] MEDS: RESP: ALBUTEROL 1.25 MG/3 ML NEB (PRN) NEB (02:35)
[2017-06-26] MEDS: ALPRAZolam 0.25 MG TAB PO SCH (06:00)
[2017-06-26 06:45] LABS: AUTOMATED NEUTROPHIL # 5.7 TH/MM3 (1.8-7.7); BASOPHIL # 0.1 TH/MM3 (0-0.2); BASOPHIL % 0.7 % (0.0-2.0); EOSINOPHIL # 0.1 TH/MM3 (0-0.4); EOSINOPHIL % 1.3 % (0.0-4.0); HEMATOCRIT 26.8 % (35.0-46.0); HEMOGLOBIN 9.1 GM/DL (11.6-15.3); LYMPH % 18.9 % (9.0-44.0); LYMPHOCYTE # 1.5 TH/MM3 (1.0-4.8); MEAN CELL VOLUME 89.9 FL (80.0-100.0); MEAN CORPUSCULAR HEMOGLOBIN 30.6 PG (27.0-34.0); MEAN PLATELET VOLUME 7.2 FL (7.0-11.0); MONO % 5.4 % (0.0-8.0); MONOCYTE # 0.4 TH/MM3 (0-0.9); NEUT % 73.7 % (16.0-70.0); PLATELET COUNT 270 TH/MM3 (150-450); RED BLOOD COUNT 2.98 MIL/MM3 (4.00-5.30); RED CELL DISTRIBUTION WIDTH 14.9 % (11.6-17.2); WHITE BLOOD COUNT 7.7 TH/MM3 (4.0-11.0)
[2017-06-26 07:03] LABS: BICARBONATE 35.2 MEQ/L (21.0-32.0); CALCIUM 8.3 MG/DL (8.5-10.1); CREATININE 0.98 MG/DL (0.50-1.00)
[2017-06-26 07:54] LABS: BANDS 17 % (0-6); LYMPHOCYTES 20 % (9-44); METAMYELOCYTES 2 % (0-1); MONOCYTES 2 % (0-8); MYELOCYTES 1 % (0-0); NEUTROPHIL # MANUAL DIFF 5.9 TH/MM3 (1.8-7.7); POLYS (SEG NEUTROPHILS) 57 % (16-70)
[2017-06-26] MEDS: RESP: BUDESONIDE 0.5 MG/2 ML NEB NEB SCH ×2 (08:00→20:00)
[2017-06-26] MEDS: RESP: ALBUTEROL 2.5 MG/IPRATROPIUM 0.5 MG NEB (SCH) NEB ×3 (08:28→20:20)
[2017-06-26] MEDS: DOCUSATE SODIUM 50 MG/SENNA 8.6 MG TAB PO SCH ×2 (09:00→21:00)
[2017-06-26] MEDS ORDERED: GLUCAGON 1 MG/ML VIAL OTHER PRN (10:00)
[2017-06-26] MEDS ORDERED: DEXTROSE 50% IN WATER 50 ML VIAL(D50) IV PUSH PRN (10:00)
[2017-06-26] MEDS: DEXT 5%-NACL 0.45% 1000 ML INJ 1,000 ML IV SCH (10:00)
--- NOTE | 2017-06-26 10:40 | HHI.PR ---
Subjective Remarks Patient laying in bed awake and alert in no acute distress offers no new complaints Objective Vitals Vital Signs Date Time Temp Pulse Resp B/P (MAP) Pulse Ox O2 Delivery O2 Flow Rate FiO2 06/26/17 10:00 Nasal Cannula 2.00 21 06/26/17 08:29 Nasal Cannula 2.00 06/26/17 06:11 Nasal Cannula 2.00 Humidified 06/26/17 04:02 97.2 109 18 138/84 (102) 96 06/26/17 04:00 115 06/26/17 00:00 97.1 116 18 137/91 (106) 96 06/26/17 00:00 99 06/25/17 21:21 Nasal Cannula 2.00 Humidified 06/25/17 20:54 Nasal Cannula 1.00 06/25/17 20:05 129 06/25/17 20:00 96.3 133 18 145/81 (102) 97 06/25/17 16:00 97.6 118 17 123/64 (83) 96 06/25/17 13:45 96 Nasal Cannula 1.00 06/25/17 12:00 96.8 121 17 134/74 (94) 99 Result Diagram: 06/26/17 0610 06/26/17 0610 Other Results Laboratory Tests Test 06/25/17 06:00 06/25/17 11:00 06/25/17 17:15 06/26/17 06:10 White Blood Count 8.4 TH/MM3 7.7 TH/MM3 Red Blood Count 3.03 MIL/MM3 2.98 MIL/MM3 Hemoglobin 9.2 GM/DL 9.1 GM/DL Hematocrit 27.3 % 26.8 % Mean Corpuscular Volume 90.2 FL 89.9 FL Mean Corpuscular Hemoglobin 30.3 PG 30.6 PG Mean Corpuscular Hemoglobin Concent 33.5 % 34.0 % Red Cell Distribution Width 14.9 % 14.9 % Platelet Count 256 TH/MM3 270 TH/MM3 Mean Platelet Volume 7.1 FL 7.2 FL Neutrophils (%) (Auto) 73.3 % 73.7 % Lymphocytes (%) (Auto) 18.6 % 18.9 % Monocytes (%) (Auto) 5.8 % 5.4 % Eosinophils (%) (Auto) 1.8 % 1.3 % Basophils (%) (Auto) 0.5 % 0.7 % Neutrophils # (Auto) 6.2 TH/MM3 5.7 TH/MM3 Lymphocytes # (Auto) 1.6 TH/MM3 1.5 TH/MM3 Monocytes # (Auto) 0.5 TH/MM3 0.4 TH/MM3 Eosinophils # (Auto) 0.1 TH/MM3 0.1 TH/MM3 Basophils # (Auto) 0.0 TH/MM3 0.1 TH/MM3 CBC Comment AUTO DIFF AUTO DIFF Differential Total Cells Counted 100 100 Neutrophils % (Manual) 82 % 57 % Lymphocytes % 12 % 20 % Monocytes % 4 % 2 % Eosinophils % 1 % 1 % Neutrophils # (Manual) 7.0 TH/MM3 5.9 TH/MM3 Metamyelocytes 1 % 2 % Nucleated Red Blood Cells 1 /100 WBC Differential Comment FINAL DIFF MANUAL FINAL DIFF MANUAL Platelet Estimate NORMAL NORMAL Platelet Morphology Comment NORMAL NORMAL Basophilic Stippling FAINT Red Cell Morphology Comment NORMAL Blood Urea Nitrogen 13 MG/DL 17 MG/DL Creatinine 1.00 MG/DL 0.98 MG/DL Random Glucose 75 MG/DL 69 MG/DL Calcium Level 8.3 MG/DL 8.3 MG/DL Magnesium Level 2.0 MG/DL Sodium Level 143 MEQ/L 142 MEQ/L Potassium Level 3.9 MEQ/L 4.0 MEQ/L Chloride Level 103 MEQ/L 104 MEQ/L Carbon Dioxide Level 35.0 MEQ/L 35.2 MEQ/L Anion Gap 5 MEQ/L 3 MEQ/L Estimat Glomerular Filtration Rate 55 ML/MIN 57 ML/MIN Troponin I 0.02 NG/ML 0.02 NG/ML Band Neutrophils % 17 % Myelocytes 1 % Imaging Last Impressions Abdomen X-Ray 06/21/17 0000 Signed Impressions: Service Date/Time: Wednesday, June 21, 2017 18:55 - CONCLUSION: No acute disease. Joaquin Freed MD Tibia/Fibula X-Ray 06/13/17 0000 Signed Impressions: Service Date/Time: Tuesday, June 13, 2017 20:40 - CONCLUSION: 1. Ulceration at the lateral leg with soft tissue swelling. No bony abnormality. Kostas Rosado MD Chest X-Ray 06/13/17 0000 Signed Impressions: Service Date/Time: Tuesday, June 13, 2017 20:37 - CONCLUSION: 1. Mild hyperinflation. No active disease. Kostas Rosado MD Objective Remarks General: NAD, AAOx3. Resp/Chest: clear through out Cardiac: tachycardic Abd: +BS, soft ND/NT Ext: RLE with wound vac in place, edema in bilateral UE, improving A/P Problem List: (1) Open leg wound ICD Codes: S81.809A - Unspecified open wound, unspecified lower leg, initial encounter Status: Chronic Plan: LLE nonhealing wound - Patient with large, necrotic open wound right lower extremity x 2 months. - Wound culture growing gram negative rods - Blood cultures with no growth x 1 day - Pt has been started on Zosyn and Vancomycin - General Surgery is following - Pt underwent surgical debridement with wound vac placement on 06/15/[address] Clark - Pt underwent a vac change on 06/17/17, 06/19, 06/21, and again today (06/23) - Pt painful with bedside VAC change 06/19. Pt had VAC change in OR 06/21 and 06/23 - next OR VAC change 06/26 - Case d/w Dr. Kaminski (06/23) - anticipate d/c to SNF early next week - Pt with B/L LE edema and weeping. Cr increased following IV lasix, Cr spiked at 1.44 (06/18) - Pt now on PO lasix & renal fxn is stable - Ensure with each meal and at bedtime - Pain control PRN - Constipation precautions, Vivian-Colace BID, MOM PRB, Dulcolax PRN - Monitor labs daily - Supportive care - SCD on non-surgical leg Tachycardia - Outpt 2D echo (04/03/17) --> Mild concentric LVH, Estimated EF 50%, Grade 1 diastolic dysfunction, Moderate mitral valve regurg, Mild tricuspid valve regurg, Normal estimated PA pressure, 32.7mmHg - Telemetry with noted sinus tachycardia - EKG in the ED noted sinus tachycardia - repeat EKG (06/23) --> sinus tachycardia, 109, with occasional PVC - patient more tachycardic today 110 -> 144 bpm, patient reports more pain in LLE today - continue Ultram PRN. add acetaminophen scheduled. Patient does not want stronger pain medication. She is fearful of sedation/side effects - place continuous telemetry for closer monitoring of HR and rhythm - suspect pain, anxiety, COPD, and prednisone are all contributing - add scheduled Xanax start 06/25 patient does not like the way Xanax makes her feel will DC - Lexiscan requested per Dr. Parsons, Patient refusing COPD/Chemical exposure hx in 08/2016 - PFT in 2016 with reported FEV1 of 0.51, 20% of predicted - Continue Symbicort BID and Combivent QID - Pt was given a dose of IV Solu-Medrol at admission - Prednisone 20mg alt with 10mg every other day -> (06/25) will transition to Prednisone 10 mg daily - Duonebs to q6h while awake - Budesonide Nebs BID - Supplemental O2 as needed - repeat CXR (06/24) hyperinflation without infiltrate. Small nodule RUL recommend outpatient follow up CT - CT chest without contrast (06/24) Areas of scarring in the lungs with COPD and scattered tiny nodules most likely benign, repeat noncontrast chest CT is suggested in 6 months as a conservative follow up Hyperglycemia - Pt likely with steroid induced hyperglycemia with her prolonged steroid use - Hgb A1C is 8.6% - She has been having some intermittent issues with hypoglycemia - NovoLog SSI Dc'd (06/22) - Accu checks ACHS - Start D5 05/23 NS at 42 if glucose < 80 while patient NPO (2) COPD (chronic obstructive pulmonary disease) ICD Codes: J44.9 - Chronic obstructive pulmonary disease, unspecified Status: Chronic (3) Hyperglycemia ICD Codes: R73.9 - Hyperglycemia, unspecified Status: Acute Assessment and Plan Patient examined. Assessment and plan formulated with Radha Bansal PA-C. I agree with the above. going for wound vac change. d/c when ok with gen surgery...?snf vs c/outpt wound care. Problem Qualifiers (1) Open leg wound: Qualified Codes: S81.801A - Unspecified open wound, right lower leg, initial encounter Radha Bansal Jun 26, 2017 10:40 Ellis Eason MD Jun 26, 2017 10:51
[2017-06-26] MEDS ORDERED: PHARMACY ORDERED LAB ONE (11:45)
[2017-06-26] MEDS ORDERED: PROPOFOL 200 MG/20 ML AMP IV ONE (12:00)
[2017-06-26] MEDS ORDERED: PHENYLEPH/NS 1000 MCG/10 ML SYR IV ONE (12:00)
[2017-06-26] MEDS ORDERED: LIDOCAINE HCL 1% PF 5 ML SYRINGE OTHER ONE (12:00)
[2017-06-26] MEDS ORDERED: DO NOT ADM ANY ANTICOAGULANT DRUGS PRN (14:10)
[2017-06-26] MEDS ORDERED: *ONDANSETRON 4 MG VIAL PERIprocedural Use ONLY ONE (14:54)
[2017-06-26] MEDS: POTASSIUM CHLORIDE 25 MEQ EFFERVESCENT TAB PO SCH (15:44)
[2017-06-26] MEDS: FUROSEMIDE 20 MG TAB PO SCH (15:45)
[2017-06-26] MEDS: predniSONE 10 MG TAB PO SCH (15:45)
[2017-06-26] MEDS: BUDESONIDE-FORMOTEROL 80/4.5 MCG INHALER INH SCH ×2 (15:46→23:06)
[2017-06-26] MEDS: REMOVE OLD PATCH T-DERMAL SCH (21:00)
[2017-06-27] VITALS (8 sets, daily range): BP systolic 116–145; BP diastolic 66–92; PULSE 68–114; RESP 16–20; TEMP 97.4–98.1; O2SAT 98–100
[2017-06-27] MEDS: traMADol HCL 50 MG TAB PO PRN ×2 (06:44→20:38)
[2017-06-27] MEDS: RESP: BUDESONIDE 0.5 MG/2 ML NEB NEB SCH ×2 (08:00→20:00)
[2017-06-27] MEDS: RESP: ALBUTEROL 2.5 MG/IPRATROPIUM 0.5 MG NEB (SCH) NEB ×2 (08:21→12:43)
[2017-06-27] MEDS: BUDESONIDE-FORMOTEROL 80/4.5 MCG INHALER INH SCH ×2 (08:47→20:42)
[2017-06-27] MEDS: POTASSIUM CHLORIDE 25 MEQ EFFERVESCENT TAB PO SCH (08:47)
[2017-06-27] MEDS: predniSONE 10 MG TAB PO SCH (08:47)
[2017-06-27] MEDS: FUROSEMIDE 20 MG TAB PO SCH (08:47)
[2017-06-27] MEDS: DOCUSATE SODIUM 50 MG/SENNA 8.6 MG TAB PO SCH ×2 (08:48→20:39)
--- NOTE | 2017-06-27 09:04 | HHI.PR ---
Subjective Remarks Patient reports feeling better today Offers no specific complaints Objective Vitals Vital Signs Date Time Temp Pulse Resp B/P (MAP) Pulse Ox O2 Delivery O2 Flow Rate FiO2 06/27/17 08:23 99 2.00 06/27/17 08:00 97.4 107 18 124/78 (93) 98 06/27/17 04:39 97.8 91 20 138/92 (107) 99 06/27/17 00:00 97.9 114 20 126/75 (92) 100 06/26/17 20:22 98 Nasal Cannula 2.00 06/26/17 20:00 97.6 115 20 128/89 (102) 99 06/26/17 16:00 97.0 111 20 141/67 (91) 99 06/26/17 15:00 108 18 117/76 (90) 99 Nasal Cannula 2 06/26/17 14:45 114 18 133/78 (96) 96 Nasal Cannula 2 06/26/17 14:30 115 18 132/80 (97) 100 Nasal Cannula 2 06/26/17 14:11 96.9 114 18 125/76 (92) 100 Nasal Cannula 2 06/26/17 12:00 98.0 131 18 131/81 (98) 99 06/26/17 12:00 98.0 131 18 131/81 (98) 99 06/26/17 10:00 Nasal Cannula 2.00 21 Result Diagram: 06/26/17 0610 06/26/17 0610 Other Results Laboratory Tests Test 06/25/17 06:00 06/25/17 11:00 06/25/17 17:15 06/26/17 06:10 White Blood Count 8.4 TH/MM3 7.7 TH/MM3 Red Blood Count 3.03 MIL/MM3 2.98 MIL/MM3 Hemoglobin 9.2 GM/DL 9.1 GM/DL Hematocrit 27.3 % 26.8 % Mean Corpuscular Volume 90.2 FL 89.9 FL Mean Corpuscular Hemoglobin 30.3 PG 30.6 PG Mean Corpuscular Hemoglobin Concent 33.5 % 34.0 % Red Cell Distribution Width 14.9 % 14.9 % Platelet Count 256 TH/MM3 270 TH/MM3 Mean Platelet Volume 7.1 FL 7.2 FL Neutrophils (%) (Auto) 73.3 % 73.7 % Lymphocytes (%) (Auto) 18.6 % 18.9 % Monocytes (%) (Auto) 5.8 % 5.4 % Eosinophils (%) (Auto) 1.8 % 1.3 % Basophils (%) (Auto) 0.5 % 0.7 % Neutrophils # (Auto) 6.2 TH/MM3 5.7 TH/MM3 Lymphocytes # (Auto) 1.6 TH/MM3 1.5 TH/MM3 Monocytes # (Auto) 0.5 TH/MM3 0.4 TH/MM3 Eosinophils # (Auto) 0.1 TH/MM3 0.1 TH/MM3 Basophils # (Auto) 0.0 TH/MM3 0.1 TH/MM3 CBC Comment AUTO DIFF AUTO DIFF Differential Total Cells Counted 100 100 Neutrophils % (Manual) 82 % 57 % Lymphocytes % 12 % 20 % Monocytes % 4 % 2 % Eosinophils % 1 % 1 % Neutrophils # (Manual) 7.0 TH/MM3 5.9 TH/MM3 Metamyelocytes 1 % 2 % Nucleated Red Blood Cells 1 /100 WBC Differential Comment FINAL DIFF MANUAL FINAL DIFF MANUAL Platelet Estimate NORMAL NORMAL Platelet Morphology Comment NORMAL NORMAL Basophilic Stippling FAINT Red Cell Morphology Comment NORMAL Blood Urea Nitrogen 13 MG/DL 17 MG/DL Creatinine 1.00 MG/DL 0.98 MG/DL Random Glucose 75 MG/DL 69 MG/DL Calcium Level 8.3 MG/DL 8.3 MG/DL Magnesium Level 2.0 MG/DL Sodium Level 143 MEQ/L 142 MEQ/L Potassium Level 3.9 MEQ/L 4.0 MEQ/L Chloride Level 103 MEQ/L 104 MEQ/L Carbon Dioxide Level 35.0 MEQ/L 35.2 MEQ/L Anion Gap 5 MEQ/L 3 MEQ/L Estimat Glomerular Filtration Rate 55 ML/MIN 57 ML/MIN Troponin I 0.02 NG/ML 0.02 NG/ML Band Neutrophils % 17 % Myelocytes 1 % Imaging Last Impressions Abdomen X-Ray 06/21/17 0000 Signed Impressions: Service Date/Time: Wednesday, June 21, 2017 18:55 - CONCLUSION: No acute disease. Joaquin Freed MD Tibia/Fibula X-Ray 06/13/17 0000 Signed Impressions: Service Date/Time: Tuesday, June 13, 2017 20:40 - CONCLUSION: 1. Ulceration at the lateral leg with soft tissue swelling. No bony abnormality. Kostas Rosado MD Chest X-Ray 06/13/17 0000 Signed Impressions: Service Date/Time: Tuesday, June 13, 2017 20:37 - CONCLUSION: 1. Mild hyperinflation. No active disease. Kostas Rosado MD Objective Remarks General: NAD, AAOx3. Resp/Chest: clear through out Cardiac: tachycardic Abd: +BS, soft ND/NT Ext: RLE with wound vac in place, edema in bilateral UE, improving A/P Problem List: (1) Open leg wound ICD Codes: S81.809A - Unspecified open wound, unspecified lower leg, initial encounter Status: Chronic Plan: LLE nonhealing wound - Patient with large, necrotic open wound right lower extremity x 2 months. - Wound culture growing gram negative rods - Blood cultures with no growth x 1 day - Pt has been started on Zosyn and Vancomycin - General Surgery is following - Pt underwent surgical debridement with wound vac placement on 06/15/[address] Clark - Pt underwent a vac change on 06/17/17, 06/19, 06/21, and again today (06/23) - Pt painful with bedside VAC change 06/19. Pt had VAC change in OR 06/21, 06/23 , 06/26 - next OR VAC change 06/28 - Case d/w Dr. Kaminski (06/23) and (06/26) - plan to DC once cleared by general surgery - Pt with B/L LE edema and weeping. Cr increased following IV lasix, Cr spiked at 1.44 (06/18) - Pt now on PO lasix & renal fxn is stable - Ensure with each meal and at bedtime - Pain control PRN - Constipation precautions, Vivian-Colace BID, MOM PRB, Dulcolax PRN - Monitor labs daily - Supportive care - SCD on non-surgical leg Tachycardia - Outpt 2D echo (04/03/17) --> Mild concentric LVH, Estimated EF 50%, Grade 1 diastolic dysfunction, Moderate mitral valve regurg, Mild tricuspid valve regurg, Normal estimated PA pressure, 32.7mmHg - Telemetry with noted sinus tachycardia - EKG in the ED noted sinus tachycardia - repeat EKG (06/23) --> sinus tachycardia, 109, with occasional PVC - patient more tachycardic today 110 -> 144 bpm, patient reports more pain in LLE today - continue Ultram PRN. add acetaminophen scheduled. Patient does not want stronger pain medication. She is fearful of sedation/side effects - place continuous telemetry for closer monitoring of HR and rhythm - suspect pain, anxiety, COPD, and prednisone are all contributing - add scheduled Xanax start 06/25 patient does not like the way Xanax makes her feel will DC - Lexiscan requested per Dr. Parsons, Patient refusing COPD/Chemical exposure hx in 08/2016 - PFT in 2016 with reported FEV1 of 0.51, 20% of predicted - Continue Symbicort BID and Combivent QID - Pt was given a dose of IV Solu-Medrol at admission - Prednisone 20mg alt with 10mg every other day -> (06/25) will transition to Prednisone 10 mg daily - Duonebs to q6h while awake - Budesonide Nebs BID - Supplemental O2 as needed - repeat CXR (06/24) hyperinflation without infiltrate. Small nodule RUL recommend outpatient follow up CT - CT chest without contrast (06/24) Areas of scarring in the lungs with COPD and scattered tiny nodules most likely benign, repeat noncontrast chest CT is suggested in 6 months as a conservative follow up Hyperglycemia - Pt likely with steroid induced hyperglycemia with her prolonged steroid use - Hgb A1C is 8.6% - She has been having some intermittent issues with hypoglycemia - NovoLog SSI Dc'd (06/22) - Accu checks ACHS - Start D5 1/2 NS at 42 if glucose < 80 while patient NPO (2) COPD (chronic obstructive pulmonary disease) ICD Codes: J44.9 - Chronic obstructive pulmonary disease, unspecified Status: Chronic (3) Hyperglycemia ICD Codes: R73.9 - Hyperglycemia, unspecified Status: Acute Assessment and Plan Patient examined. Assessment and plan formulated with Radha Bansal PA-C. I agree with the above.\ rle wound. off abx. wound vac change three times week. presumed related to massive steroids pt was taking for months. d/c to outpt wound care when ok with gen surg. Problem Qualifiers (1) Open leg wound: Qualified Codes: S81.801A - Unspecified open wound, right lower leg, initial encounter Radha Bansal Jun 27, 2017 09:04 Ellis Eason MD Jun 27, 2017 11:16
[2017-06-27] MEDS: DEXT 5%-NACL 0.45% 1000 ML INJ 1,000 ML IV SCH (09:49)
[2017-06-27] MEDS: REMOVE OLD PATCH T-DERMAL SCH (21:00)
[2017-06-28] VITALS (9 sets, daily range): BP systolic 115–152; BP diastolic 59–82; PULSE 97–108; RESP 16–20; TEMP 96.9–98.1; O2SAT 95–100
[2017-06-28] MEDS: traMADol HCL 50 MG TAB PO PRN ×4 (02:38→22:59)
[2017-06-28] MEDS: RESP: BUDESONIDE 0.5 MG/2 ML NEB NEB SCH ×2 (07:56→20:00)
[2017-06-28] MEDS: FUROSEMIDE 20 MG TAB PO SCH (08:10)
[2017-06-28] MEDS: DOCUSATE SODIUM 50 MG/SENNA 8.6 MG TAB PO SCH ×2 (08:10→21:00)
[2017-06-28] MEDS: POTASSIUM CHLORIDE 25 MEQ EFFERVESCENT TAB PO SCH (08:10)
[2017-06-28] MEDS: BUDESONIDE-FORMOTEROL 80/4.5 MCG INHALER INH SCH ×2 (08:10→22:46)
[2017-06-28] MEDS: predniSONE 10 MG TAB PO SCH (08:11)
[2017-06-28] MEDS: DEXT 5%-NACL 0.45% 1000 ML INJ 1,000 ML IV SCH (09:38)
--- NOTE | 2017-06-28 09:42 | HHI.PR ---
Subjective Remarks no complaints Objective Vitals heart reg lung wheeze abd s/nt ext rle wound vac Vital Signs Date Time Temp Pulse Resp B/P (MAP) Pulse Ox O2 Delivery O2 Flow Rate FiO2 06/28/17 08:22 98 Nasal Cannula 2.00 06/28/17 08:00 97.3 108 16 120/59 (79) 100 06/28/17 04:00 96.9 102 20 126/72 (90) 100 06/28/17 00:00 97.3 97 20 151/76 (101) 100 06/27/17 20:15 98 Nasal Cannula 2.00 06/27/17 20:00 Nasal Cannula 2.00 06/27/17 20:00 98.0 82 20 125/66 (85) 98 06/27/17 15:21 98.1 106 18 116/72 (87) 100 06/27/17 12:00 97.9 68 16 145/81 (102) 99 Result Diagram: 06/26/17 0610 06/26/17 0610 Imaging Last Impressions Abdomen X-Ray 06/21/17 0000 Signed Impressions: Service Date/Time: Wednesday, June 21, 2017 18:55 - CONCLUSION: No acute disease. Joaquin Freed MD Tibia/Fibula X-Ray 06/13/17 0000 Signed Impressions: Service Date/Time: Tuesday, June 13, 2017 20:40 - CONCLUSION: 1. Ulceration at the lateral leg with soft tissue swelling. No bony abnormality. Kostas Rosado MD Chest X-Ray 06/13/17 0000 Signed Impressions: Service Date/Time: Tuesday, June 13, 2017 20:37 - CONCLUSION: 1. Mild hyperinflation. No active disease. Kostas Rosado MD A/P Problem List: (1) Open leg wound ICD Codes: S81.809A - Unspecified open wound, unspecified lower leg, initial encounter Status: Acute Plan: RLE nonhealing wound - Patient with large, necrotic open wound right lower extremity x 2 months. - Wound culture growing gram negative rods - Blood cultures with no growth - Pt has been started on Zosyn and Vancomycin - General Surgery is following - Pt underwent surgical debridement with wound vac placement on 06/15/[address] Clark - Pt underwent a vac change on 06/17/17, 06/19, 06/21, (2/2) , 06/26 - Case d/w Dr. Kaminski (06/23) and (06/26) - plan to DC once cleared by general surgery - Pt with B/L LE edema and weeping. Cr increased following IV lasix, Cr spiked at 1.44 (06/18) - Pt now on PO lasix & renal fxn is stable - Ensure with each meal and at bedtime - Pain control PRN - Constipation precautions, Vivian-Colace BID, MOM PRB, Dulcolax PRN - Monitor labs daily - Supportive care - SCD on non-surgical leg Tachycardia - Outpt 2D echo (04/03/17) --> Mild concentric LVH, Estimated EF 50%, Grade 1 diastolic dysfunction, Moderate mitral valve regurg, Mild tricuspid valve regurg, Normal estimated PA pressure, 32.7mmHg - Telemetry with noted sinus tachycardia - EKG in the ED noted sinus tachycardia - repeat EKG (06/23) --> sinus tachycardia, 109, with occasional PVC - patient more tachycardic today 110 -> 144 bpm, patient reports more pain in LLE today - continue Ultram PRN. add acetaminophen scheduled. Patient does not want stronger pain medication. She is fearful of sedation/side effects - place continuous telemetry for closer monitoring of HR and rhythm - suspect pain, anxiety, COPD, and prednisone are all contributing - add scheduled Xanax start 06/25 patient does not like the way Xanax makes her feel will DC - Lexiscan requested per Dr. Parsons, Patient refusing COPD/Chemical exposure hx in 08/2016 - PFT in 2016 with reported FEV1 of 0.51, 20% of predicted - Continue Symbicort BID and Combivent QID - Pt was given a dose of IV Solu-Medrol at admission - Prednisone 20mg alt with 10mg every other day -> (06/25) will transition to Prednisone 10 mg daily - Duonebs to q6h while awake - Budesonide Nebs BID - Supplemental O2 as needed - repeat CXR (06/24) hyperinflation without infiltrate. Small nodule RUL recommend outpatient follow up CT - CT chest without contrast (06/24) Areas of scarring in the lungs with COPD and scattered tiny nodules most likely benign, repeat noncontrast chest CT is suggested in 6 months as a conservative follow up Hyperglycemia - Pt likely with steroid induced hyperglycemia with her prolonged steroid use - Hgb A1C is 8.6% - She has been having some intermittent issues with hypoglycemia - NovoLog SSI Dc'd (06/22) - Accu checks ACHS - Start D5 1/2 NS at 42 if glucose < 80 while patient NPO (2) COPD (chronic obstructive pulmonary disease) ICD Codes: J44.9 - Chronic obstructive pulmonary disease, unspecified Status: Chronic (3) Hyperglycemia ICD Codes: R73.9 - Hyperglycemia, unspecified Status: Acute Problem Qualifiers (1) Open leg wound: Qualified Codes: S81.801A - Unspecified open wound, right lower leg, initial encounter Ellis Eason MD Jun 28, 2017 09:42
[2017-06-28] MEDS: REMOVE OLD PATCH T-DERMAL SCH (21:00)
[2017-06-29] VITALS (9 sets, daily range): BP systolic 103–141; BP diastolic 67–81; PULSE 88–112; RESP 17–22; TEMP 97.5–98.7; O2SAT 98–100
[2017-06-29] MEDS: RESP: BUDESONIDE 0.5 MG/2 ML NEB NEB SCH (07:57)
[2017-06-29] MEDS: BUDESONIDE-FORMOTEROL 80/4.5 MCG INHALER INH SCH ×2 (08:58→21:32)
[2017-06-29] MEDS: FUROSEMIDE 20 MG TAB PO SCH (08:59)
[2017-06-29] MEDS: predniSONE 10 MG TAB PO SCH (08:59)
[2017-06-29] MEDS: traMADol HCL 50 MG TAB PO PRN ×3 (09:00→21:33)
[2017-06-29] MEDS: DOCUSATE SODIUM 50 MG/SENNA 8.6 MG TAB PO SCH ×2 (09:00→19:28)
[2017-06-29] MEDS: POTASSIUM CHLORIDE 25 MEQ EFFERVESCENT TAB PO SCH (09:00)
--- NOTE | 2017-06-29 09:58 | HHI.PR ---
Subjective Remarks No new complaints Less weeping from the UE Pt did not have vac change on 06/28 Objective Vitals Vital Signs Date Time Temp Pulse Resp B/P (MAP) Pulse Ox O2 Delivery O2 Flow Rate FiO2 06/29/17 08:00 97.5 106 19 135/80 (98) 98 06/29/17 04:03 89 06/29/17 04:00 98.1 98 18 141/81 (101) 100 06/29/17 00:00 98.7 90 18 127/79 (95) 99 06/28/17 21:52 98 Nasal Cannula 2.00 06/28/17 20:00 98.1 105 18 152/70 (97) 95 06/28/17 19:00 Nasal Cannula 2.00 06/28/17 16:00 96.9 99 17 115/82 (93) 99 06/28/17 12:00 97.5 100 18 141/82 (101) 100 06/28/17 10:09 2.00 06/28/17 10:05 108 Result Diagram: 06/26/17 0610 06/26/17 0610 Imaging Last Impressions Chest X-Ray 06/24/17 0800 Signed Impressions: Service Date/Time: Saturday, June 24, 2017 08:04 - CONCLUSION: 1. Hyperinflation without infiltrate. 2. Small nodule right upper lobe. Outpatient CT chest recommended. David Maya MD Chest CT 06/24/17 0000 Signed Impressions: Service Date/Time: Saturday, June 24, 2017 16:21 - CONCLUSION: Areas of scarring in the lungs with COPD and scattered tiny nodules most likely benign, repeat noncontrast chest CT is suggested in 6 months as a conservative follow up. Sujit Bunch MD Abdomen X-Ray 06/21/17 0000 Signed Impressions: Service Date/Time: Wednesday, June 21, 2017 18:55 - CONCLUSION: No acute disease. Joaquin Freed MD Tibia/Fibula X-Ray 06/13/17 0000 Signed Impressions: Service Date/Time: Tuesday, June 13, 2017 20:40 - CONCLUSION: 1. Ulceration at the lateral leg with soft tissue swelling. No bony abnormality. Kostas Rosado MD Last Impressions Abdomen X-Ray 06/21/17 0000 Signed Impressions: Service Date/Time: Wednesday, June 21, 2017 18:55 - CONCLUSION: No acute disease. Joaquin Freed MD Tibia/Fibula X-Ray 06/13/17 0000 Signed Impressions: Service Date/Time: Tuesday, June 13, 2017 20:40 - CONCLUSION: 1. Ulceration at the lateral leg with soft tissue swelling. No bony abnormality. Kostas Rosado MD Chest X-Ray 06/13/17 0000 Signed Impressions: Service Date/Time: Tuesday, June 13, 2017 20:37 - CONCLUSION: 1. Mild hyperinflation. No active disease. Kostas Rosado MD Objective Remarks General: NAD, AAOx3 Chest: Minimal expiratory wheeze Cardiac: Regular Abd: +BS, soft ND/NT Ext: Wound vac in place on RLE, less swelling in UE A/P Problem List: (1) Open leg wound ICD Codes: S81.809A - Unspecified open wound, unspecified lower leg, initial encounter Status: Acute Plan: RLE nonhealing wound - Patient with large, necrotic open wound right lower extremity x 2 months. - Wound culture growing gram negative rods - Blood cultures with no growth - Pt has been started on Zosyn and Vancomycin - General Surgery is following - Pt underwent surgical debridement with wound vac placement on 06/15/[address] Clark - Pt underwent a vac change on 06/17/17, 06/19, 06/21, 06/23, 06/26 - plan to DC once cleared by general surgery - Pt with B/L LE edema and weeping. Cr increased following IV lasix, Cr spiked at 1.44 (06/18) - Pt now on PO lasix & renal fxn is stable - Ensure BID as pt has had some loose stools - Pain control PRN - Constipation precautions, Vivian-Colace BID, MOM PRB, Dulcolax PRN - Monitor labs daily - Supportive care - SCD on non-surgical leg Tachycardia - Outpt 2D echo (04/03/17) --> Mild concentric LVH, Estimated EF 50%, Grade 1 diastolic dysfunction, Moderate mitral valve regurg, Mild tricuspid valve regurg, Normal estimated PA pressure, 32.7mmHg - Telemetry with noted sinus tachycardia - EKG in the ED noted sinus tachycardia - repeat EKG (06/23) --> sinus tachycardia, 109, with occasional PVC - continue Ultram PRN. add acetaminophen scheduled. Patient does not want stronger pain medication. She is fearful of sedation/side effects - place continuous telemetry for closer monitoring of HR and rhythm - suspect pain, anxiety, COPD, and prednisone are all contributing - Lexiscan requested per Dr. Parsons, Patient refusing COPD/Chemical exposure hx in 08/2016 - PFT in 2016 with reported FEV1 of 0.51, 20% of predicted - Continue Symbicort BID and Combivent QID - Pt was given a dose of IV Solu-Medrol at admission - Prednisone 20mg alt with 10mg every other day -> (06/25) will transition to Prednisone 10 mg daily - Duonebs to q6h while awake - Pt refused Budesonide Nebs BID - Supplemental O2 as needed - repeat CXR (06/24) hyperinflation without infiltrate. Small nodule RUL recommend outpatient follow up CT - CT chest without contrast (06/24) Areas of scarring in the lungs with COPD and scattered tiny nodules most likely benign, repeat noncontrast chest CT is suggested in 6 months as a conservative follow up Hyperglycemia - Pt likely with steroid induced hyperglycemia with her prolonged steroid use - Hgb A1C is 8.6% - She has been having some intermittent issues with hypoglycemia - NovoLog SSI Dc'd (06/22) - Accu checks ACHS (2) COPD (chronic obstructive pulmonary disease) ICD Codes: J44.9 - Chronic obstructive pulmonary disease, unspecified Status: Chronic (3) Hyperglycemia ICD Codes: R73.9 - Hyperglycemia, unspecified Status: Acute Assessment and Plan Patient examined. Assessment and plan formulated with Yomaira Lemus PA-C. I agree with the above. continue wound vac OR changes until pt can be d/c'ed. will discuss with gen surg. Problem Qualifiers (1) Open leg wound: Qualified Codes: S81.801A - Unspecified open wound, right lower leg, initial encounter Yomaira Lemus Jun 29, 2017 09:58 Ellis Eason MD Jun 29, 2017 11:45
[2017-06-29] MEDS: RESP: ALBUTEROL 2.5 MG/IPRATROPIUM 0.5 MG NEB (SCH) NEB ×2 (16:17→20:05)
[2017-06-29] MEDS: REMOVE OLD PATCH T-DERMAL SCH (19:29)
[2017-06-30] VITALS (8 sets, daily range): BP systolic 116–130; BP diastolic 65–83; PULSE 88–118; RESP 17–20; TEMP 96.7–98.5; O2SAT 95–100
[2017-06-30] MEDS: RESP: ALBUTEROL 2.5 MG/IPRATROPIUM 0.5 MG NEB (SCH) NEB ×4 (08:16→19:21)
[2017-06-30] MEDS: predniSONE 10 MG TAB PO SCH (08:51)
[2017-06-30] MEDS: POTASSIUM CHLORIDE 25 MEQ EFFERVESCENT TAB PO SCH (08:51)
[2017-06-30] MEDS: FUROSEMIDE 20 MG TAB PO SCH (08:51)
[2017-06-30] MEDS: traMADol HCL 50 MG TAB PO PRN ×3 (08:52→23:48)
[2017-06-30] MEDS: DOCUSATE SODIUM 50 MG/SENNA 8.6 MG TAB PO SCH ×2 (08:52→21:00)
[2017-06-30] MEDS: BUDESONIDE-FORMOTEROL 80/4.5 MCG INHALER INH SCH ×2 (08:52→21:37)
[2017-06-30] MEDS ORDERED: HYDROmorphone HCL PF 2 MG/ML VIAL IV PUSH PRN (09:00)
--- NOTE | 2017-06-30 09:17 | HHI.PR ---
Subjective Remarks Pt doing fairly well today She is concerned about having a bedside wound vac change. She can't tolerate Dilaudid for pain management Objective Vitals Vital Signs Date Time Temp Pulse Resp B/P (MAP) Pulse Ox O2 Delivery O2 Flow Rate FiO2 06/30/17 08:18 99 Nasal Cannula 2.00 06/30/17 08:00 98.5 118 19 121/73 (89) 99 06/30/17 04:00 96.7 88 20 116/67 (83) 97 06/30/17 04:00 89 06/30/17 00:00 98.0 95 20 128/83 (98) 97 06/29/17 23:58 88 06/29/17 20:00 98.4 112 22 103/71 (82) 98 06/29/17 20:00 104 06/29/17 19:00 Nasal Cannula 2.00 06/29/17 16:17 99 Nasal Cannula 2.00 06/29/17 16:00 98.7 105 18 121/67 (85) 99 06/29/17 12:03 99 2.00 06/29/17 12:00 98.5 101 17 123/69 (87) 99 Result Diagram: 06/26/17 0610 06/26/17 0610 Imaging Last Impressions Chest X-Ray 06/24/17 0800 Signed Impressions: Service Date/Time: Saturday, June 24, 2017 08:04 - CONCLUSION: 1. Hyperinflation without infiltrate. 2. Small nodule right upper lobe. Outpatient CT chest recommended. David Maya MD Chest CT 06/24/17 0000 Signed Impressions: Service Date/Time: Saturday, June 24, 2017 16:21 - CONCLUSION: Areas of scarring in the lungs with COPD and scattered tiny nodules most likely benign, repeat noncontrast chest CT is suggested in 6 months as a conservative follow up. Sujit Bunch MD Abdomen X-Ray 06/21/17 0000 Signed Impressions: Service Date/Time: Wednesday, June 21, 2017 18:55 - CONCLUSION: No acute disease. Joaquin Freed MD Tibia/Fibula X-Ray 06/13/17 0000 Signed Impressions: Service Date/Time: Tuesday, June 13, 2017 20:40 - CONCLUSION: 1. Ulceration at the lateral leg with soft tissue swelling. No bony abnormality. Kostas Rosado MD Last Impressions Abdomen X-Ray 06/21/17 0000 Signed Impressions: Service Date/Time: Wednesday, June 21, 2017 18:55 - CONCLUSION: No acute disease. Joaquin Freed MD Tibia/Fibula X-Ray 06/13/17 0000 Signed Impressions: Service Date/Time: Tuesday, June 13, 2017 20:40 - CONCLUSION: 1. Ulceration at the lateral leg with soft tissue swelling. No bony abnormality. Kostas Rosado MD Chest X-Ray 06/13/17 0000 Signed Impressions: Service Date/Time: Tuesday, June 13, 2017 20:37 - CONCLUSION: 1. Mild hyperinflation. No active disease. Kostas Rosado MD Objective Remarks General: NAD, AAOx3 Chest: Minimal expiratory wheeze Cardiac: Regular Abd: +BS, soft ND/NT Ext: Wound vac in place on RLE, less swelling in UE A/P Problem List: (1) Open leg wound ICD Codes: S81.809A - Unspecified open wound, unspecified lower leg, initial encounter Status: Acute Plan: RLE nonhealing wound - Patient with large, necrotic open wound right lower extremity x 2 months. - Wound culture growing gram negative rods - Blood cultures with no growth - Pt has been started on Zosyn and Vancomycin - General Surgery is following - Pt underwent surgical debridement with wound vac placement on 06/15/[address] Clark - Pt underwent a vac change on 06/17/17, 06/19, 06/21, 06/23, 06/26 - Pt has wound vac change at bedside ordered but pt fearful that she will not tolerate this, will discuss with General Surgery today - plan to DC once cleared by general surgery - Pt with B/L LE edema and weeping. Cr increased following IV lasix, Cr spiked at 1.44 (06/18) - Pt now on PO lasix & renal fxn is stable - Check BMP today - Ensure BID as pt has had some loose stools - Pain control PRN - Constipation precautions, Vivian-Colace BID, MOM PRB, Dulcolax PRN - Monitor labs daily - Supportive care - SCD on non-surgical leg Tachycardia - Outpt 2D echo (04/03/17) --> Mild concentric LVH, Estimated EF 50%, Grade 1 diastolic dysfunction, Moderate mitral valve regurg, Mild tricuspid valve regurg, Normal estimated PA pressure, 32.7mmHg - Telemetry with noted sinus tachycardia - EKG in the ED noted sinus tachycardia - repeat EKG (06/23) --> sinus tachycardia, 109, with occasional PVC - continue Ultram PRN. add acetaminophen scheduled. Patient does not want stronger pain medication. She is fearful of sedation/side effects - place continuous telemetry for closer monitoring of HR and rhythm - suspect pain, anxiety, COPD, and prednisone are all contributing - Lexiscan requested per Dr. Parsons, Patient refusing COPD/Chemical exposure hx in 08/2016 - PFT in 2016 with reported FEV1 of 0.51, 20% of predicted - Continue Symbicort BID and Combivent QID - Pt was given a dose of IV Solu-Medrol at admission - Prednisone 20mg alt with 10mg every other day -> (06/25) will transition to Prednisone 10 mg daily - Duonebs to q6h while awake - Pt refused Budesonide Nebs BID - Supplemental O2 as needed - repeat CXR (06/24) hyperinflation without infiltrate. Small nodule RUL recommend outpatient follow up CT - CT chest without contrast (06/24) Areas of scarring in the lungs with COPD and scattered tiny nodules most likely benign, repeat noncontrast chest CT is suggested in 6 months as a conservative follow up Hyperglycemia - Pt likely with steroid induced hyperglycemia with her prolonged steroid use - Hgb A1C is 8.6% - She has been having some intermittent issues with hypoglycemia - NovoLog SSI Dc'd (06/22) - Accu checks ACHS (2) COPD (chronic obstructive pulmonary disease) ICD Codes: J44.9 - Chronic obstructive pulmonary disease, unspecified Status: Chronic (3) Hyperglycemia ICD Codes: R73.9 - Hyperglycemia, unspecified Status: Acute Assessment and Plan Patient examined. Assessment and plan formulated with Yomaira Lemus PA-C. I agree with the above. attempting bedside wound vac changing today. pt very nervous. pain meds and zofran ordered. Problem Qualifiers (1) Open leg wound: Qualified Codes: S81.801A - Unspecified open wound, right lower leg, initial encounter Yomaira Lemus Jun 30, 2017 09:17 Ellis Eason MD Jun 30, 2017 11:38
[2017-06-30] MEDS: ONDANSETRON HCL 4 MG/2 ML VIAL IV PUSH PRN (10:53)
[2017-06-30] MEDS: LORazepam 2 MG/ML VIAL IV PUSH PRN (11:00)
[2017-06-30 11:27] LABS: BICARBONATE 33.9 MEQ/L (21.0-32.0); CALCIUM 8.4 MG/DL (8.5-10.1); CREATININE 1.13 MG/DL (0.50-1.00)
--- NOTE | 2017-06-30 13:44 | PD.WCN.NOT ---
Wound Consult Description: Right lower extremity Recommendation: Change wound VAC in O.R. Monday Neg Pressure Wound Therapy Wound Location Wound Location: Right lower extremity Wound Description Length: ~23cm Width: ~38cm Depth: ~1cm Wound bed appearance: ~50% fascia ~30% red non granulating tissue ~20% red granulated tissue Periwound appearance: Other (Maceration noted to distal periwounds) Settings Suction: 125 mmHg, Continuous Intensity: Low Other Information: Windowpaned Foam type: Black Number of pieces: 1 Additonal Information Patient was seen today by [facility] underwriter and Telma FIERRO for wound VAC change of Right lower extremity.Patient was medicated prior to writers arrival.Dressing removed with minimal difficulty.Wound cleansed with normal saline pat dry .Areas of maceration noted calcium alginate applied then window paned to protect periwound.Adaptic gauze applied to fascia.Single layer black sponge applied making contact with wound base and covered with drape.Track pad applied VAC setting @ 125mmHg low continuos with no leaks noted.Patient tolerated VAC well but with some difficulty at times (sponge removal and application). Mino Riley [facility] Jun 30, 2017 13:44
[2017-06-30] MEDS: REMOVE OLD PATCH T-DERMAL SCH (21:00)
[2017-07-01] VITALS (9 sets, daily range): BP systolic 98–132; BP diastolic 67–79; PULSE 85–117; RESP 16–18; TEMP 96.2–98.3; O2SAT 94–100
[2017-07-01] MEDS: traMADol HCL 50 MG TAB PO PRN ×2 (05:32→18:37)
[2017-07-01 05:56] LABS: AUTOMATED NEUTROPHIL # 3.8 TH/MM3 (1.8-7.7); BASOPHIL # 0.1 TH/MM3 (0-0.2); BASOPHIL % 1.1 % (0.0-2.0); EOSINOPHIL # 0.1 TH/MM3 (0-0.4); EOSINOPHIL % 2.3 % (0.0-4.0); HEMATOCRIT 24.3 % (35.0-46.0); HEMOGLOBIN 8.2 GM/DL (11.6-15.3); LYMPH % 22.8 % (9.0-44.0); LYMPHOCYTE # 1.3 TH/MM3 (1.0-4.8); MEAN CELL VOLUME 89.6 FL (80.0-100.0); MEAN CORPUSCULAR HEMOGLOBIN 30.2 PG (27.0-34.0); MEAN CORPUSCULAR HGB CONC 33.6 % (32.0-36.0); MEAN PLATELET VOLUME 6.7 FL (7.0-11.0); MONO % 8.9 % (0.0-8.0); MONOCYTE # 0.5 TH/MM3 (0-0.9); NEUT % 64.9 % (16.0-70.0); PLATELET COUNT 270 TH/MM3 (150-450); RED BLOOD COUNT 2.72 MIL/MM3 (4.00-5.30); RED CELL DISTRIBUTION WIDTH 15.3 % (11.6-17.2); WHITE BLOOD COUNT 5.8 TH/MM3 (4.0-11.0)
[2017-07-01 07:23] LABS: BICARBONATE 33.4 MEQ/L (21.0-32.0); CALCIUM 8.2 MG/DL (8.5-10.1); CREATININE 1.1 MG/DL (0.50-1.00); MAGNESIUM 2.1 MG/DL (1.5-2.5)
[2017-07-01] MEDS: RESP: ALBUTEROL 2.5 MG/IPRATROPIUM 0.5 MG NEB (SCH) NEB ×4 (08:39→19:31)
[2017-07-01] MEDS: DOCUSATE SODIUM 50 MG/SENNA 8.6 MG TAB PO SCH ×3 (09:00→21:00)
[2017-07-01 09:12] LABS: BANDS 11 % (0-6); LYMPHOCYTES 19 % (9-44); METAMYELOCYTES 3 % (0-1); MONOCYTES 4 % (0-8); MYELOCYTES 1 % (0-0); NEUTROPHIL # MANUAL DIFF 4.3 TH/MM3 (1.8-7.7); POLYS (SEG NEUTROPHILS) 59 % (16-70)
--- NOTE | 2017-07-01 09:33 | HHI.PR ---
Subjective Remarks Pt tolerated the bedside vac change yesterday Still requiring 2L of supplemental O2 Pt has not been ambulating with PT due to wound vac but was instructed to weight bear as tolerated by GS yesterday Objective Vitals Vital Signs Date Time Temp Pulse Resp B/P (MAP) Pulse Ox O2 Delivery O2 Flow Rate FiO2 07/01/17 08:43 99 2.00 07/01/17 08:00 96.2 96 16 132/78 (96) 100 07/01/17 04:05 89 07/01/17 04:00 96.8 85 18 121/79 (93) 99 07/01/17 00:00 98.3 99 18 132/71 (91) 98 07/01/17 00:00 107 06/30/17 21:40 Nasal Cannula 2.00 06/30/17 21:00 98.1 112 18 130/71 (90) 96 06/30/17 19:22 98 Nasal Cannula 2.00 06/30/17 16:00 97.0 110 17 126/71 (89) 95 06/30/17 12:00 96.8 100 17 127/65 (85) 100 07/01/17 07/01/17 07/02/17 15:00 23:00 07:00 Output Total 115 ml Balance -115 ml Drainage Total 115 ml Result Diagram: 07/01/1752907/01/17529 Other Results Laboratory Tests Test 06/30/17 10:50 07/01/17 05:30 Blood Urea Nitrogen 12 MG/DL 11 MG/DL Creatinine 1.13 MG/DL 1.10 MG/DL Random Glucose 187 MG/DL 74 MG/DL Calcium Level 8.4 MG/DL 8.2 MG/DL Sodium Level 137 MEQ/L 138 MEQ/L Potassium Level 3.9 MEQ/L 3.8 MEQ/L Chloride Level 99 MEQ/L 99 MEQ/L Carbon Dioxide Level 33.9 MEQ/L 33.4 MEQ/L Anion Gap 4 MEQ/L 6 MEQ/L Estimat Glomerular Filtration Rate 48 ML/MIN 50 ML/MIN White Blood Count 5.8 TH/MM3 Red Blood Count 2.72 MIL/MM3 Hemoglobin 8.2 GM/DL Hematocrit 24.3 % Mean Corpuscular Volume 89.6 FL Mean Corpuscular Hemoglobin 30.2 PG Mean Corpuscular Hemoglobin Concent 33.6 % Red Cell Distribution Width 15.3 % Platelet Count 270 TH/MM3 Mean Platelet Volume 6.7 FL Neutrophils (%) (Auto) 64.9 % Lymphocytes (%) (Auto) 22.8 % Monocytes (%) (Auto) 8.9 % Eosinophils (%) (Auto) 2.3 % Basophils (%) (Auto) 1.1 % Neutrophils # (Auto) 3.8 TH/MM3 Lymphocytes # (Auto) 1.3 TH/MM3 Monocytes # (Auto) 0.5 TH/MM3 Eosinophils # (Auto) 0.1 TH/MM3 Basophils # (Auto) 0.1 TH/MM3 CBC Comment AUTO DIFF Differential Total Cells Counted 100 Neutrophils % (Manual) 59 % Band Neutrophils % 11 % Lymphocytes % 19 % Monocytes % 4 % Eosinophils % 3 % Neutrophils # (Manual) 4.3 TH/MM3 Metamyelocytes 3 % Myelocytes 1 % Differential Comment FINAL DIFF MANUAL Platelet Estimate NORMAL Platelet Morphology Comment NORMAL Magnesium Level 2.1 MG/DL Imaging Last Impressions Chest X-Ray 06/24/17 0800 Signed Impressions: Service Date/Time: Saturday, June 24, 2017 08:04 - CONCLUSION: 1. Hyperinflation without infiltrate. 2. Small nodule right upper lobe. Outpatient CT chest recommended. David Maya MD Chest CT 06/24/17 0000 Signed Impressions: Service Date/Time: Saturday, June 24, 2017 16:21 - CONCLUSION: Areas of scarring in the lungs with COPD and scattered tiny nodules most likely benign, repeat noncontrast chest CT is suggested in 6 months as a conservative follow up. Sujit Bunch MD Abdomen X-Ray 06/21/17 0000 Signed Impressions: Service Date/Time: Wednesday, June 21, 2017 18:55 - CONCLUSION: No acute disease. Joaquin Freed MD Tibia/Fibula X-Ray 06/13/17 0000 Signed Impressions: Service Date/Time: Tuesday, June 13, 2017 20:40 - CONCLUSION: 1. Ulceration at the lateral leg with soft tissue swelling. No bony abnormality. Kostas Rosado MD Last Impressions Abdomen X-Ray 06/21/17 0000 Signed Impressions: Service Date/Time: Wednesday, June 21, 2017 18:55 - CONCLUSION: No acute disease. Joaquin Freed MD Tibia/Fibula X-Ray 06/13/17 0000 Signed Impressions: Service Date/Time: Tuesday, June 13, 2017 20:40 - CONCLUSION: 1. Ulceration at the lateral leg with soft tissue swelling. No bony abnormality. Kostas Rosado MD Chest X-Ray 06/13/17 0000 Signed Impressions: Service Date/Time: Tuesday, June 13, 2017 20:37 - CONCLUSION: 1. Mild hyperinflation. No active disease. Kostas Rosado MD Objective Remarks General: NAD, AAOx3 Chest: Minimal expiratory wheeze Cardiac: Regular Abd: +BS, soft ND/NT Ext: Wound vac in place on RLE, less swelling in UE A/P Problem List: (1) Open leg wound ICD Codes: S81.809A - Unspecified open wound, unspecified lower leg, initial encounter Status: Acute Plan: RLE nonhealing wound - Patient with large, necrotic open wound right lower extremity x 2 months. - Wound culture growing gram negative rods - Blood cultures with no growth - Pt has been started on Zosyn and Vancomycin - General Surgery is following - Pt underwent surgical debridement with wound vac placement on 06/15/[address] Clark - Pt underwent a vac change on 06/17/17, 06/19, 06/21, 06/23, 06/26 - Pt has wound vac change at bedside on 06/30/17 and recommended for continued wound vac changes on Tuesdays and Fridays - plan to DC once cleared by general surgery - Pt with B/L LE edema and weeping, improving. Cr increased following IV lasix, Cr spiked at 1.44 (06/18) - Pt now on PO lasix. Follow creatinine, labs increased slightly but BUN is stable. - Check BMP in AM - Ensure BID as pt has had some loose stools - Pain control PRN - Constipation precautions, Vivian-Colace BID, MOM PRB, Dulcolax PRN - Monitor labs daily - Supportive care - SCD on non-surgical leg Tachycardia - Outpt 2D echo (04/03/17) --> Mild concentric LVH, Estimated EF 50%, Grade 1 diastolic dysfunction, Moderate mitral valve regurg, Mild tricuspid valve regurg, Normal estimated PA pressure, 32.7mmHg - Telemetry with noted sinus tachycardia - EKG in the ED noted sinus tachycardia - repeat EKG (06/23) --> sinus tachycardia, 109, with occasional PVC - continue Ultram PRN. add acetaminophen scheduled. Patient does not want stronger pain medication. She is fearful of sedation/side effects - place continuous telemetry for closer monitoring of HR and rhythm - suspect pain, anxiety, COPD, and prednisone are all contributing - Lexiscan requested per Dr. Parsons, Patient refusing COPD/Chemical exposure hx in 08/2016 - PFT in 2016 with reported FEV1 of 0.51, 20% of predicted - Continue Symbicort BID and Combivent QID - Pt was given a dose of IV Solu-Medrol at admission - Prednisone 20mg alt with 10mg every other day -> (06/25) transitioned to Prednisone 10 mg daily - Duonebs to q6h while awake - Pt refused Budesonide Nebs BID - Supplemental O2 as needed - repeat CXR (06/24) hyperinflation without infiltrate. Small nodule RUL recommend outpatient follow up CT - CT chest without contrast (06/24) Areas of scarring in the lungs with COPD and scattered tiny nodules most likely benign, repeat noncontrast chest CT is suggested in 6 months as a conservative follow up Hyperglycemia - Pt likely with steroid induced hyperglycemia with her prolonged steroid use - Hgb A1C is 8.6% - She has been having some intermittent issues with hypoglycemia - NovoLog SSI Dc'd (06/22) - Accu checks ACHS (2) COPD (chronic obstructive pulmonary disease) ICD Codes: J44.9 - Chronic obstructive pulmonary disease, unspecified Status: Chronic (3) Hyperglycemia ICD Codes: R73.9 - Hyperglycemia, unspecified Status: Acute Assessment and Plan Patient examined. Assessment and plan formulated with Yomaira Lemus PA-C. I agree with the above. wound vac changed at bedside 06/30. next change Monday. dc home when ok with gen surg. Problem Qualifiers (1) Open leg wound: Qualified Codes: S81.801A - Unspecified open wound, right lower leg, initial encounter Yomaira Lemus Jul 01, 2017 09:33 lElis Eason MD Jul 01, 2017 17:08
[2017-07-01] MEDS: BUDESONIDE-FORMOTEROL 80/4.5 MCG INHALER INH SCH ×2 (10:42→22:00)
[2017-07-01] MEDS: POTASSIUM CHLORIDE 25 MEQ EFFERVESCENT TAB PO SCH (10:43)
[2017-07-01] MEDS: FUROSEMIDE 20 MG TAB PO SCH (10:43)
[2017-07-01] MEDS: predniSONE 10 MG TAB PO SCH (10:43)
[2017-07-01] MEDS: REMOVE OLD PATCH T-DERMAL SCH (22:01)
[2017-07-02] VITALS (9 sets, daily range): BP systolic 119–132; BP diastolic 67–82; PULSE 83–119; RESP 16–20; TEMP 96.6–98.7; O2SAT 93–99
[2017-07-02] MEDS: traMADol HCL 50 MG TAB PO PRN ×4 (02:05→19:45)
[2017-07-02 04:25] LABS: BICARBONATE 33.4 MEQ/L (21.0-32.0); CALCIUM 8.3 MG/DL (8.5-10.1); CREATININE 1.1 MG/DL (0.50-1.00); MAGNESIUM 2.2 MG/DL (1.5-2.5)
[2017-07-02] MEDS: FUROSEMIDE 20 MG TAB PO SCH (07:44)
[2017-07-02] MEDS: predniSONE 10 MG TAB PO SCH (07:45)
[2017-07-02] MEDS: POTASSIUM CHLORIDE 25 MEQ EFFERVESCENT TAB PO SCH (07:47)
[2017-07-02] MEDS: BUDESONIDE-FORMOTEROL 80/4.5 MCG INHALER INH SCH ×2 (07:50→19:44)
[2017-07-02] MEDS: DOCUSATE SODIUM 50 MG/SENNA 8.6 MG TAB PO SCH ×2 (07:53→19:44)
[2017-07-02] MEDS: RESP: ALBUTEROL 2.5 MG/IPRATROPIUM 0.5 MG NEB (SCH) NEB ×4 (09:01→21:56)
--- NOTE | 2017-07-02 10:30 | MB ---
cc: SARITA MINA MD DATE OF CONSULTATION: 07/02/2017 HISTORY OF PRESENT ILLNESS This is a 66-year-old woman admitted to the hospital for nonhealing ulcer. This began essentially this past August. She has been subsequently admitted for surgical debridement and wound vac. She has been progressing well, last night she had a 19 beat run of ventricular tachycardia and we have been asked to see her in that regard. PAST MEDICAL HISTORY Significant for: Severe COPD and been on prednisone therapy for a large number of years. 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 No history of chest pain has been present. No prior history of heart disease has been noted. She does have problems intermittently with shortness of breath. She is a former smoker of half pack of cigarettes per day having stopped 3 years ago. She has significant family history of coronary artery disease. No history of hyperlipidemia or hypertension has been present. LABORATORY DATA Review of her laboratory demonstrates normal electrolytes. We do note that she is having a gradual decrease in her hemoglobin/hematocrit with her last value of 8.2 and 24.3. PHYSICAL EXAMINATION GENERAL: She is awake, alert. VITAL SIGNS: She is afebrile. BP is 130/68. LUNGS: Reveal scattered wheezes. CARDIOVASCULAR: Exam reveals a regular rate and rhythm with no murmur or gallop noted. EXTREMITIES: She has significant wound in her right lower extremity. ASSESSMENT The patient has had a run of ventricular tachycardia which may be secondary to her severe COPD. We note that she is wheezing now. I have ordered an echocardiogram for further evaluation. We will consider an ischemic workup, although elected to do Lexiscan at this point in time with her ongoing bronchospasm. MD HAFSA Hines/CHRISTOPHER /10:00 AM /10:16 AM
[2017-07-02] MEDS: IBUPROFEN 400 MG TAB PO PRN ×2 (12:32→18:25)
--- NOTE | 2017-07-02 13:58 | HHI.PR ---
Subjective Remarks had run VT last night Asx. no cp comfortable. Objective Vitals heart reg lung wheeze abd s/nt ext rle wound vac Vital Signs Date Time Temp Pulse Resp B/P (MAP) Pulse Ox O2 Delivery O2 Flow Rate FiO2 07/02/17 12:00 96.6 97 18 129/80 (96) 96 07/02/17 09:01 Nasal Cannula 1.00 07/02/17 08:00 97.4 108 18 132/68 (89) 93 07/02/17 07:45 Nasal Cannula 1.00 Humidified 07/02/17 04:00 83 07/02/17 04:00 97.8 102 20 119/68 (85) 98 07/02/17 03:14 101 07/02/17 00:00 97.8 101 18 130/79 (96) 99 07/02/17 00:00 86 07/01/17 20:00 97.9 101 18 124/74 (91) 97 07/01/17 20:00 95 07/01/17 19:32 98 Nasal Cannula 2.00 07/01/17 16:00 98.2 117 17 111/67 (82) 94 Result Diagram: 07/01/17 0530 07/02/17 0325 Imaging Last Impressions Chest X-Ray 06/24/17 0800 Signed Impressions: Service Date/Time: Saturday, June 24, 2017 08:04 - CONCLUSION: 1. Hyperinflation without infiltrate. 2. Small nodule right upper lobe. Outpatient CT chest recommended. David Maya MD Chest CT 06/24/17 0000 Signed Impressions: Service Date/Time: Saturday, June 24, 2017 16:21 - CONCLUSION: Areas of scarring in the lungs with COPD and scattered tiny nodules most likely benign, repeat noncontrast chest CT is suggested in 6 months as a conservative follow up. Sujit Bunch MD Abdomen X-Ray 06/21/17 0000 Signed Impressions: Service Date/Time: Wednesday, June 21, 2017 18:55 - CONCLUSION: No acute disease. Joaquin Freed MD Tibia/Fibula X-Ray 06/13/17 0000 Signed Impressions: Service Date/Time: Tuesday, June 13, 2017 20:40 - CONCLUSION: 1. Ulceration at the lateral leg with soft tissue swelling. No bony abnormality. Kostas Rosado MD Last Impressions Abdomen X-Ray 06/21/17 0000 Signed Impressions: Service Date/Time: Wednesday, June 21, 2017 18:55 - CONCLUSION: No acute disease. Joaquin Freed MD Tibia/Fibula X-Ray 06/13/17 0000 Signed Impressions: Service Date/Time: Tuesday, June 13, 2017 20:40 - CONCLUSION: 1. Ulceration at the lateral leg with soft tissue swelling. No bony abnormality. Kostas Rosado MD Chest X-Ray 06/13/17 0000 Signed Impressions: Service Date/Time: Tuesday, June 13, 2017 20:37 - CONCLUSION: 1. Mild hyperinflation. No active disease. Kostas Rosado MD A/P Problem List: (1) Open leg wound ICD Codes: S81.809A - Unspecified open wound, unspecified lower leg, initial encounter Status: Acute Plan: RLE nonhealing wound - Patient with large, necrotic open wound right lower extremity x 2 months. - Wound culture growing gram negative rods - Blood cultures with no growth - Pt has been started on Zosyn and Vancomycin - General Surgery is following - Pt underwent surgical debridement with wound vac placement on 06/15/[address] Clark - Pt underwent a vac change on 06/17/17, 06/19, 06/21, 06/23, 06/26 - Pt has wound vac change at bedside on 06/30/17 and recommended for continued wound vac changes on Tuesdays and Fridays - plan to DC once cleared by general surgery - Pt with B/L LE edema and weeping, improving. Cr increased following IV lasix, Cr spiked at 1.44 (06/18) - Pt now on PO lasix. Follow creatinine, labs increased slightly but BUN is stable. - Ensure BID as pt has had some loose stools - Pain control PRN - Constipation precautions, Vivian-Colace BID, MOM PRB, Dulcolax PRN - Monitor labs daily - Supportive care - SCD on non-surgical leg Tachycardia - Outpt 2D echo (04/03/17) --> Mild concentric LVH, Estimated EF 50%, Grade 1 diastolic dysfunction, Moderate mitral valve regurg, Mild tricuspid valve regurg, Normal estimated PA pressure, 32.7mmHg - Telemetry with noted sinus tachycardia - EKG in the ED noted sinus tachycardia - repeat EKG (06/23) --> sinus tachycardia, 109, with occasional PVC - continue Ultram PRN. add acetaminophen scheduled. Patient does not want stronger pain medication. She is fearful of sedation/side effects - place continuous telemetry for closer monitoring of HR and rhythm - suspect pain, anxiety, COPD, and prednisone are all contributing - Lexiscan requested per Dr. Parsons, Patient refusing -Pt has run Vt 07/02....cardiology consulted. echo ordered and ischemic w/up is considered. COPD/Chemical exposure hx in 08/2016 - PFT in 2016 with reported FEV1 of 0.51, 20% of predicted - Continue Symbicort BID and Combivent QID - Pt was given a dose of IV Solu-Medrol at admission - Prednisone 20mg alt with 10mg every other day -> (06/25) transitioned to Prednisone 10 mg daily - Duonebs to q6h while awake - Pt refused Budesonide Nebs BID - Supplemental O2 as needed - repeat CXR (06/24) hyperinflation without infiltrate. Small nodule RUL recommend outpatient follow up CT - CT chest without contrast (06/24) Areas of scarring in the lungs with COPD and scattered tiny nodules most likely benign, repeat noncontrast chest CT is suggested in 6 months as a conservative follow up Hyperglycemia - Pt likely with steroid induced hyperglycemia with her prolonged steroid use - Hgb A1C is 8.6% - She has been having some intermittent issues with hypoglycemia - NovoLog SSI Dc'd (06/22) - Accu checks ACHS (2) COPD (chronic obstructive pulmonary disease) ICD Codes: J44.9 - Chronic obstructive pulmonary disease, unspecified Status: Chronic (3) Hyperglycemia ICD Codes: R73.9 - Hyperglycemia, unspecified Status: Acute Problem Qualifiers (1) Open leg wound: Qualified Codes: S81.801A - Unspecified open wound, right lower leg, initial encounter Ellis Eason MD Jul 02, 2017 13:58
[2017-07-02] MEDS: REMOVE OLD PATCH T-DERMAL SCH (19:44)
[2017-07-03] VITALS (8 sets, daily range): BP systolic 114–157; BP diastolic 72–88; PULSE 87–127; RESP 16–20; TEMP 96.6–98.1; O2SAT 95–97
[2017-07-03] MEDS: traMADol HCL 50 MG TAB PO PRN ×3 (02:10→21:58)
[2017-07-03] MEDS: predniSONE 10 MG TAB PO SCH (08:05)
[2017-07-03] MEDS: FUROSEMIDE 20 MG TAB PO SCH (08:05)
[2017-07-03] MEDS: POTASSIUM CHLORIDE 25 MEQ EFFERVESCENT TAB PO SCH (08:05)
[2017-07-03] MEDS: DOCUSATE SODIUM 50 MG/SENNA 8.6 MG TAB PO SCH ×2 (08:06→21:00)
[2017-07-03] MEDS: BUDESONIDE-FORMOTEROL 80/4.5 MCG INHALER INH SCH ×2 (08:06→21:59)
--- NOTE | 2017-07-03 08:11 | PD.CARD.PN ---
Subjective Subjective Remarks Telemetry from overnight reviewed with sinus tachycardia and occasional PVCs; one instance bigeminal, one episode 2 beat run. No chest pain or palpitations. Shortness of breath improving a little today. Objective Medications Current Medications Medications (Trade) Dose Ordered Sig/Ely Route Start Time Stop Time Status Last Admin (Albuterol Neb) 1.25 mg Q2HR NEB PRN NEB 06/13/17 20:30 06/26/17 02:35 Miscellaneous Information 1 HS T-DERMAL 06/13/17 21:00 06/21/17 21:00 (Zofran Inj) 4 mg Q6H PRN IV PUSH 06/13/17 22:30 06/30/17 10:53 (Restoril) 15 mg HS PRN PO 06/13/17 22:00 (Ultram) 50 mg Q6H PRN PO 06/14/17 01:00 07/03/17 02:10 (Symbicort 80-4.5 Mcg Inh) 2 puff Q12HR INH 06/14/17 10:30 07/02/17 19:44 Patient Own Medication PT OWN MED: COMBIV... QID INH 06/14/17 10:15 Future Hold (Vivian-Colace) 1 tab BID PO 06/19/17 21:00 06/20/17 08:41 (Milk Of Magnesia Liq) 30 ml Q12H PRN PO 06/19/17 12:45 (Senokot) 17.2 mg Q12H PRN PO 06/19/17 12:45 (Dulcolax Supp) 10 mg DAILY PRN RECTAL 06/19/17 12:45 (Lasix) 20 mg DAILY PO 06/19/17 13:15 07/02/17 07:44 (Ativan Inj) 1 mg Q4H PRN IV PUSH 06/19/17 13:45 06/30/17 11:00 (K-Lyte Cl Eff) 25 meq DAILY PO 06/22/17 09:00 07/02/17 07:47 (Deltasone) 10 mg DAILY PO 06/26/17 09:00 07/02/17 07:45 (Pill Splitter) 1 ea UNSCH PRN OTHER 06/25/17 14:15 (D50w (Vial) Inj) 50 ml UNSCH PRN IV PUSH 06/26/17 10:00 (Glucagon Inj) 1 mg UNSCH PRN OTHER 06/26/17 10:00 (Duoneb Neb) 1 ampule Q4HR WHILE AWAKE NEB NEB 06/29/17 12:00 07/02/17 21:56 (Dilaudid Pf Inj) 1 mg MoWeFr PRN IV PUSH 06/30/17 09:00 06/30/17 10:57 (Motrin) 400 mg Q6H PRN PO 07/02/17 12:30 07/02/17 18:25 Vital Signs / I&O Vital Signs Date Time Temp Pulse Resp B/P (MAP) Pulse Ox O2 Delivery O2 Flow Rate FiO2 07/03/17 04:03 87 07/03/17 04:00 96.6 87 20 129/78 (95) 96 07/03/17 00:55 97.1 117 20 147/88 (107) 97 07/03/17 00:06 106 07/02/17 21:56 98 Nasal Cannula 1.00 07/02/17 21:26 Nasal Cannula 1.00 Humidified 07/02/17 20:45 98.7 119 20 130/82 (98) 96 07/02/17 19:04 93 07/02/17 16:00 97.5 118 16 120/67 (84) 96 07/02/17 12:00 96.6 97 18 129/80 (96) 96 07/02/17 09:01 Nasal Cannula 1.00 I/O 07/02/17 07/02/17 07/02/17 07/03/17 07/03/17 07/03/17 07:00 15:00 23:00 07:00 15:00 23:00 Intake Total 480 ml 600 ml 720 ml Output Total 50 ml 500 ml 50 ml Balance 430 ml 100 ml 670 ml Intake Oral 480 ml 600 ml 720 ml Output Urine Total 300 ml Drainage Total 50 ml 200 ml 50 ml # Voids 1 3 # Bowel Movements 0 0 Physical Exam GENERAL: Well-developed well-nourished. In no acute distress. NECK: No carotid bruits. No JVD. CARDIOVASCULAR: Tachycardic rate and regular rhythm. No murmur appreciated. RESPIRATORY: No accessory muscle use. Diminished breath sounds in all lung farrell. No wheezing. MUSCULOSKELETAL: Wound VAC in place right lower extremity. NEUROLOGICAL: Awake and alert. Normal speech. Imaging Last Impressions Chest X-Ray 06/24/17 0800 Signed Impressions: Service Date/Time: Saturday, June 24, 2017 08:04 - CONCLUSION: 1. Hyperinflation without infiltrate. 2. Small nodule right upper lobe. Outpatient CT chest recommended. David Maya MD Chest CT 06/24/17 0000 Signed Impressions: Service Date/Time: Saturday, June 24, 2017 16:21 - CONCLUSION: Areas of scarring in the lungs with COPD and scattered tiny nodules most likely benign, repeat noncontrast chest CT is suggested in 6 months as a conservative follow up. Sujit Bunch MD Abdomen X-Ray 06/21/17 0000 Signed Impressions: Service Date/Time: Wednesday, June 21, 2017 18:55 - CONCLUSION: No acute disease. Joaquin Freed MD Tibia/Fibula X-Ray 06/13/17 0000 Signed Impressions: Service Date/Time: Tuesday, June 13, 2017 20:40 - CONCLUSION: 1. Ulceration at the lateral leg with soft tissue swelling. No bony abnormality. Kostas Rosado MD Assessment and Plan Assessment and Plan This is a 66-year-old woman admitted to the hospital for nonhealing ulcer. This began essentially this past August. She has been subsequently admitted for surgical debridement and wound vac. She had been progressing well, developed a 19 beat run of ventricular tachycardia overnight 07/02 and we have been asked to see her in that regard. NSVT: Wheezing is currently improved, we'll proceed with Lexiscan for ischemic workup. Echocardiogram ordered. Morales Del Toro Jul 03, 2017 08:11
[2017-07-03] MEDS: RESP: ALBUTEROL 2.5 MG/IPRATROPIUM 0.5 MG NEB (SCH) NEB ×2 (08:42→11:43)
--- NOTE | 2017-07-03 10:23 | PD.PN.STU ---
Subjective Remarks Pt is a 66 y/o F seen post wound vac change/debridement for nonhealing leg ulcers complicated by infection She states that she is currently doing well and has no new complaints. Denies fever, chills, shortness of breath, leg pain/cramping, nausea, vomiting, dysuria Starting to move around more. Objective Vitals Vital Signs Date Time Temp Pulse Resp B/P (MAP) Pulse Ox O2 Delivery O2 Flow Rate FiO2 07/03/17 08:00 97.4 105 16 157/79 (105) 96 07/03/17 04:03 87 07/03/17 04:00 96.6 87 20 129/78 (95) 96 07/03/17 00:55 97.1 117 20 147/88 (107) 97 07/03/17 00:06 106 07/02/17 21:56 98 Nasal Cannula 1.00 07/02/17 21:26 Nasal Cannula 1.00 Humidified 07/02/17 20:45 98.7 119 20 130/82 (98) 96 07/02/17 19:04 93 07/02/17 16:00 97.5 118 16 120/67 (84) 96 07/02/17 12:00 96.6 97 18 129/80 (96) 96 I/O 07/02/17 07/02/17 07/02/17 07/03/17 07/03/17 07/03/17 07:00 15:00 23:00 07:00 15:00 23:00 Intake Total 480 ml 600 ml 720 ml Output Total 50 ml 500 ml 50 ml Balance 430 ml 100 ml 670 ml Intake Oral 480 ml 600 ml 720 ml Output Urine Total 300 ml Drainage Total 50 ml 200 ml 50 ml # Voids 1 3 # Bowel Movements 0 0 Result Diagram: 07/01/17 0530 07/02/17 0325 Objective Remarks Patient is alert, pleasant, and appears in no acute distress Left leg below the knee is covered with wound vac. No signs of infection on the outside of the dressing. bruising above dressing present, likely due to corticosteroid therapy Sensation in plantar aspect of left foot is intact. ROM with left foot appears to be in tact, and pt can wiggle toes. Medications and IVs Current Medications Medications (Trade) Dose Ordered Sig/Ely Route Start Time Stop Time Status Last Admin (Albuterol Neb) 1.25 mg Q2HR NEB PRN NEB 06/13/17 20:30 06/26/17 02:35 Miscellaneous Information 1 HS T-DERMAL 06/13/17 21:00 06/21/17 21:00 (Zofran Inj) 4 mg Q6H PRN IV PUSH 06/13/17 22:30 06/30/17 10:53 (Restoril) 15 mg HS PRN PO 06/13/17 22:00 (Ultram) 50 mg Q6H PRN PO 06/14/17 01:00 07/03/17 08:05 (Symbicort 80-4.5 Mcg Inh) 2 puff Q12HR INH 06/14/17 10:30 07/03/17 08:06 Patient Own Medication PT OWN MED: COMBIV... QID INH 06/14/17 10:15 Future Hold (Vivian-Colace) 1 tab BID PO 06/19/17 21:00 07/03/17 08:06 (Milk Of Magnesia Liq) 30 ml Q12H PRN PO 06/19/17 12:45 (Senokot) 17.2 mg Q12H PRN PO 06/19/17 12:45 (Dulcolax Supp) 10 mg DAILY PRN RECTAL 06/19/17 12:45 (Lasix) 20 mg DAILY PO 06/19/17 13:15 07/03/17 08:05 (Ativan Inj) 1 mg Q4H PRN IV PUSH 06/19/17 13:45 06/30/17 11:00 (K-Lyte Cl Eff) 25 meq DAILY PO 06/22/17 09:00 07/03/17 08:05 (Deltasone) 10 mg DAILY PO 06/26/17 09:00 07/03/17 08:05 (Pill Splitter) 1 ea UNSCH PRN OTHER 06/25/17 14:15 (D50w (Vial) Inj) 50 ml UNSCH PRN IV PUSH 06/26/17 10:00 (Glucagon Inj) 1 mg UNSCH PRN OTHER 06/26/17 10:00 (Duoneb Neb) 1 ampule Q4HR WHILE AWAKE NEB NEB 06/29/17 12:00 07/03/17 08:42 (Dilaudid Pf Inj) 1 mg MoWeFr PRN IV PUSH 06/30/17 09:00 06/30/17 10:57 (Motrin) 400 mg Q6H PRN PO 07/02/17 12:30 07/02/17 18:25 A/P Assessment and Plan 1. Julito Andrews M3 Jul 03, 2017 10:23
[2017-07-03] MEDS ORDERED: REGADENOSON INJ 0.4 MG/5 ML SYR IV ONE (14:13)
--- NOTE | 2017-07-03 16:35 | HHI.PR ---
Subjective Remarks No new complaints. Objective Vitals Vital Signs Date Time Temp Pulse Resp B/P (MAP) Pulse Ox O2 Delivery O2 Flow Rate FiO2 07/03/17 12:00 98.1 127 19 120/72 (88) 97 07/03/17 08:00 97.4 105 16 157/79 (105) 96 07/03/17 04:03 87 07/03/17 04:00 96.6 87 20 129/78 (95) 96 07/03/17 00:55 97.1 117 20 147/88 (107) 97 07/03/17 00:06 106 07/02/17 21:56 98 Nasal Cannula 1.00 07/02/17 21:26 Nasal Cannula 1.00 Humidified 07/02/17 20:45 98.7 119 20 130/82 (98) 96 07/02/17 19:04 93 Result Diagram: 07/01/17 0530 07/02/17 0325 Imaging Last Impressions Chest X-Ray 06/24/17 0800 Signed Impressions: Service Date/Time: Saturday, June 24, 2017 08:04 - CONCLUSION: 1. Hyperinflation without infiltrate. 2. Small nodule right upper lobe. Outpatient CT chest recommended. David Maya MD Chest CT 06/24/17 0000 Signed Impressions: Service Date/Time: Saturday, June 24, 2017 16:21 - CONCLUSION: Areas of scarring in the lungs with COPD and scattered tiny nodules most likely benign, repeat noncontrast chest CT is suggested in 6 months as a conservative follow up. Sujit Bunch MD Abdomen X-Ray 06/21/17 0000 Signed Impressions: Service Date/Time: Wednesday, June 21, 2017 18:55 - CONCLUSION: No acute disease. Joaquin Freed MD Tibia/Fibula X-Ray 06/13/17 0000 Signed Impressions: Service Date/Time: Tuesday, June 13, 2017 20:40 - CONCLUSION: 1. Ulceration at the lateral leg with soft tissue swelling. No bony abnormality. Kostas Rosado MD Objective Remarks GENERAL: This is a well-nourished, well-developed patient, in no apparent distress. CARDIOVASCULAR: Regular rate and rhythm without murmurs, gallops, or rubs. RESPIRATORY: Clear to auscultation. Breath sounds equal bilaterally. No wheezes , rales, or rhonchi. GASTROINTESTINAL: Abdomen soft, non-tender, nondistended. Normal active bowel sounds MUSCULOSKELETAL: Extremities without clubbing, cyanosis, or edema. wound VAC in place at [facility] NEURO: Alert & Oriented x4 to person, place, time, situation. Moves all ext x4 A/P Problem List: (1) Open leg wound ICD Codes: S81.809A - Unspecified open wound, unspecified lower leg, initial encounter Status: Acute Plan: RLE nonhealing wound - Patient with large, necrotic open wound right lower extremity x 2 months. - Wound culture growing gram negative rods - Blood cultures with no growth - Pt has been started on Zosyn and Vancomycin - General Surgery is following - Pt underwent surgical debridement with wound vac placement on 06/15/[address] Clark - Pt underwent a vac change on 06/17/17, 06/19, 06/21, 06/23, 06/26 - Pt has wound vac change at bedside on 06/30/17 and recommended for continued wound vac changes on Tuesdays and Fridays - plan to DC once cleared by general surgery - Pt with B/L LE edema and weeping, improving. Cr increased following IV lasix, Cr spiked at 1.44 (06/18) - Pt now on PO lasix. Follow creatinine, labs increased slightly but BUN is stable. - Ensure BID as pt has had some loose stools - Pain control PRN - Constipation precautions, Vivian-Colace BID, MOM PRB, Dulcolax PRN - Monitor labs daily - Supportive care - SCD on non-surgical leg - if pt is able to tolerate bedside wound VAC change 07/04/17, then anticipate d/c to SNF Tachycardia - Outpt 2D echo (04/03/17) --> Mild concentric LVH, Estimated EF 50%, Grade 1 diastolic dysfunction, Moderate mitral valve regurg, Mild tricuspid valve regurg, Normal estimated PA pressure, 32.7mmHg - Telemetry with noted sinus tachycardia - EKG in the ED noted sinus tachycardia - repeat EKG (06/23) --> sinus tachycardia, 109, with occasional PVC - continue Ultram PRN. add acetaminophen scheduled. Patient does not want stronger pain medication. She is fearful of sedation/side effects - place continuous telemetry for closer monitoring of HR and rhythm - suspect pain, anxiety, COPD, and prednisone are all contributing - Lexiscan requested per Dr. Parsons, Patient refusing -Pt has run Vt 07/02....cardiology consulted. echo ordered and ischemic w/up is considered. - Echocardiogram --> pending - Zulema (07/02) --> reviewed with Radiology. EF 61%, subtle inferior/basilar wall reversible defect - will d/w Cardiology COPD/Chemical exposure hx in 08/2016 - PFT in 2016 with reported FEV1 of 0.51, 20% of predicted - Continue Symbicort BID and Combivent QID - Pt was given a dose of IV Solu-Medrol at admission - Prednisone 20mg alt with 10mg every other day -> (06/25) transitioned to Prednisone 10 mg daily - decrease PO prednisone to 5mg daily (07/04) - Duonebs to q6h while awake - Pt refused Budesonide Nebs BID - Supplemental O2 as needed - repeat CXR (06/24) hyperinflation without infiltrate. Small nodule RUL recommend outpatient follow up CT - CT chest without contrast (06/24) Areas of scarring in the lungs with COPD and scattered tiny nodules most likely benign, repeat noncontrast chest CT is suggested in 6 months as a conservative follow up Hyperglycemia - Pt likely with steroid induced hyperglycemia with her prolonged steroid use - Hgb A1C is 8.6% - She has been having some intermittent issues with hypoglycemia - NovoLog SSI Dc'd (06/22) - Accu checks ACHS (2) COPD (chronic obstructive pulmonary disease) ICD Codes: J44.9 - Chronic obstructive pulmonary disease, unspecified Status: Chronic (3) Hyperglycemia ICD Codes: R73.9 - Hyperglycemia, unspecified Status: Acute Problem Qualifiers (1) Open leg wound: Qualified Codes: S81.801A - Unspecified open wound, right lower leg, initial encounter Kin Parsons DO Jul 03, 2017 16:34
--- NOTE | 2017-07-03 17:16 | RADRPT ---
EXAM DATE/TIME: 07/03/2017 13:26 [place] COMPARISON: No previous studies available for comparison. INDICATIONS : Ventricular tachycardia with dyspnea. Abnormal EKG. DOSE: 27.2 mCi Tc99m Myoview at stress. 8.8 mCi Tc99m Myoview at rest. 0.4 mg Lexiscan STRESS SYMPTOMS: Dyspnea and anxious. EJECTION FRACTION: 61% MEDICAL HISTORY : Chronic obstructive pulmonary disease. Carcinoma, breast. SURGICAL HISTORY : Tubal ligation. Appendectomy. Tonsillectomy. Bowel resection and right breast lumpectomy. ENCOUNTER: Initial ACUITY: 1 day PAIN SCALE: 0/10 LOCATION: chest TECHNIQUE: The patient underwent pharmacologic stress with infusion of prescribed dose. Continuous ECG tracing was monitored during stress. Gated SPECT imaging was performed after stress and conventional SPECT i maging was performed at rest. The examination was performed on a SPECT/CT scanner, both attenuation and non-corrected datasets were reviewed. FINDINGS: DISTRIBUTION: The maximum perfused segment at stress is in the anterolateral wall. PERFUSION STUDY: The pattern of perfusion at stress shows fixed diminished perfusion to the apex. Approximately 10% re distribution in the high and mid lateral wall. GATED STUDY: There is intact wall motion and thickening without hypokinetic or dyskinetic segments. CONCLUSION: 1. Apical thinning versus old apical infarct. 2. No reversibility to suggest ischemia. 3. Adequate wall motion throughout with an estimated ejection fraction of 61% RISK CATEGORY: Low (<1% Annual Mortality Rate) Yamil Pozo MD on July 03, 2017 at 17:11 Board Certified Radiologist. This report was verified electronically.
[2017-07-03] MEDS: REMOVE OLD PATCH T-DERMAL SCH (19:22)
[2017-07-04] VITALS (7 sets, daily range): BP systolic 109–143; BP diastolic 76–86; PULSE 89–124; RESP 18–19; TEMP 96.7–98; O2SAT 96–100
[2017-07-04] MEDS: traMADol HCL 50 MG TAB PO PRN ×3 (07:08→21:38)
--- NOTE | 2017-07-04 07:36 | PD.CARD.PN ---
Subjective Subjective Remarks No new complaints. Breathing OK Objective Medications Current Medications Medications (Trade) Dose Ordered Sig/Ely Route Start Time Stop Time Status Last Admin (Albuterol Neb) 1.25 mg Q2HR NEB PRN NEB 06/13/17 20:30 06/26/17 02:35 Miscellaneous Information 1 HS T-DERMAL 06/13/17 21:00 06/21/17 21:00 (Zofran Inj) 4 mg Q6H PRN IV PUSH 06/13/17 22:30 06/30/17 10:53 (Restoril) 15 mg HS PRN PO 06/13/17 22:00 (Ultram) 50 mg Q6H PRN PO 06/14/17 01:00 07/04/17 07:08 (Symbicort 80-4.5 Mcg Inh) 2 puff Q12HR INH 06/14/17 10:30 07/03/17 21:59 Patient Own Medication PT OWN MED: COMBIV... QID INH 06/14/17 10:15 Future Hold (Vivian-Colace) 1 tab BID PO 06/19/17 21:00 07/03/17 08:06 (Milk Of Magnesia Liq) 30 ml Q12H PRN PO 06/19/17 12:45 (Senokot) 17.2 mg Q12H PRN PO 06/19/17 12:45 (Dulcolax Supp) 10 mg DAILY PRN RECTAL 06/19/17 12:45 (Lasix) 20 mg DAILY PO 06/19/17 13:15 07/03/17 08:05 (Ativan Inj) 1 mg Q4H PRN IV PUSH 06/19/17 13:45 06/30/17 11:00 (K-Lyte Cl Eff) 25 meq DAILY PO 06/22/17 09:00 07/03/17 08:05 (Pill Splitter) 1 ea UNSCH PRN OTHER 06/25/17 14:15 (D50w (Vial) Inj) 50 ml UNSCH PRN IV PUSH 06/26/17 10:00 (Glucagon Inj) 1 mg UNSCH PRN OTHER 06/26/17 10:00 (Dilaudid Pf Inj) 1 mg MoWeFr PRN IV PUSH 06/30/17 09:00 06/30/17 10:57 (Motrin) 400 mg Q6H PRN PO 07/02/17 12:30 07/02/17 18:25 (Deltasone) 5 mg DAILY PO 07/04/17 09:00 Vital Signs / I&O Vital Signs Date Time Temp Pulse Resp B/P (MAP) Pulse Ox O2 Delivery O2 Flow Rate FiO2 07/04/17 04:00 97.3 94 18 143/81 (101) 100 07/04/17 00:00 92 07/04/17 00:00 98.0 120 18 119/82 (94) 97 07/03/17 20:00 97.5 106 18 114/72 (86) 97 07/03/17 20:00 Nasal Cannula 1.00 Humidified 07/03/17 16:00 97.6 120 20 138/81 (100) 95 07/03/17 12:00 98.1 127 19 120/72 (88) 97 07/03/17 08:00 97.4 105 16 157/79 (105) 96 I/O 07/03/17 07/03/17 07/03/17 07/04/17 07/04/17 07/04/17 07:00 15:00 23:00 07:00 15:00 23:00 Intake Total 720 ml 275 ml 120 ml Output Total 50 ml 240 ml Balance 670 ml 275 ml 120 ml -240 ml Intake Oral 720 ml 275 ml 120 ml Drainage Total 50 ml 240 ml # Voids 3 2 1 # Bowel Movements 1 1 Physical Exam Lungs clear RRR Assessment and Plan Assessment and Plan Lexiscan shows normal EF and no evidence of ischemia. Will try small dose of metoprolol. Saleem Hutchins MD Jul 04, 2017 07:36
[2017-07-04] MEDS: DOCUSATE SODIUM 50 MG/SENNA 8.6 MG TAB PO SCH ×2 (08:38→21:00)
[2017-07-04] MEDS: METOPROLOL TARTRATE 25 MG TAB PO SCH ×2 (08:44→21:37)
[2017-07-04] MEDS: POTASSIUM CHLORIDE 25 MEQ EFFERVESCENT TAB PO SCH (08:44)
[2017-07-04] MEDS: predniSONE 5 MG TAB PO SCH (08:44)
[2017-07-04] MEDS: FUROSEMIDE 20 MG TAB PO SCH (08:44)
[2017-07-04] MEDS: BUDESONIDE-FORMOTEROL 80/4.5 MCG INHALER INH SCH ×2 (08:45→21:40)
--- NOTE | 2017-07-04 10:19 | PD.CONS ---
Consult Service Palliative Care Consult Requested By Dr. Parsons Primary Care Physician Paola Monzon MD Reason for Consultation a. To assist with evaluation and management of symptoms including:pain b. To assist medical decision maker(s) with: better understanding of current medical conditions; weighing benefits/burdens of medical treatment options; making medical treatment decisions. HPI History of Present Illness Patient is a 66 year-old female with a medical history significant for but not limited to COPD, chronic steroid use, tobacco abuse, questionable diabetes ( likely from chronic steroid) usage, and tachycardia ( 2D echo from04/03/17 --> Mild concentric LVH, Estimated EF 50%, Grade 1 diastolic dysfunction, Moderate mitral valve regurg, Mild tricuspid valve regurg, Normal estimated PA pressure, 32.7mmHg) came in for increasing pain, redness and foul-smelling right lower leg wound. Patient started as 2 large blisters in the area during close 2016, that eventually got worse. His purulent and has foul-smelling discharge. Patient was seen by wound care nurse in [facility] care was directed to the ER for evaluation of possible surgical intervention on 2017. In the ER: * Temperature is 98.1, pulse is 133, respiration is 18, blood pressure is 155/ 88 pulse ox is 98% on room air * WBC 16.2, hemoglobin is 14.8, hematocrit 43.3, platelets is 267 * Sodium is 137, potassium is 4.8, chloride is 103, bicarbonate 26.3, BUN is 32 , creatinine 0.84 * Random glucose is 249 * Blood culture is negative 2 * leg wound culture shows heavy mixed erika no predominant morphology. Patient was admitted to the hospital for open right leg wound. Patient started on Zosyn and vancomycin and surgery was consulted. Patient was taken to the OR 06/15/2016 for right lower leg wound debridement and had wound VAC placed. Patient's hospitalization was complicated by swelling in her upper extremity, where she is weeping; and renal function monitored. Patient also had some increase in anxiety, palpitation and dyspnea. Patient subsequently underwent wound VAC changes on 06/17, 06/19, 06/21, and June 23. The reason for the wound VAC changing his due to extensive loss of skin and subcutaneous tissue in the right lower leg. Condition of hospitalization was also complicated by pain, and tachycardia. Dr. Hutchins of cardiology was consulted and feel the runs of ventricular tachycardia may be due to her severe COPD. 2-D echo was ordered and Zulema scan for ischemic workup was also ordered. Zulema scan shows normal EF and no evidence of ischemia. Metoprolol was added. Palliative care is consulted to review goals of care and provide support. Pt was having wound vac changed, and ask me to return. On my return pt did complain of pain of her r leg. She did tell me she is sensitive to medication, but did say last time when she had dilaudid, ativan and antiemetic prior to dressing change was better. For now she state she will continue Ultram. I had discussion with her about her copd, heart, and her current wound care challenge. She understand she has tremedous challenges and may come back for rehospitalization or would decline. Code status was reviewed and she stated DNR. She stated her health care surrogate is her Pierre Martell, and would fill out HCS. For now pt want to continue medical care short of resucitation. She is amenable for me to follow up tomorrow, with Function/Cognitive Trajectory Had chronic dyspnea and copd, but not o2 dependent. Review of Systems Constitutional: COMPLAINS OF: Fatigue Endocrine: DENIES: Heat/cold intolerance Eyes: DENIES: Blurred vision, Diplopia Respiratory: COMPLAINS OF: Wheezing, Shortness of breath Cardiovascular: COMPLAINS OF: Palpitations Gastrointestinal: DENIES: Black stools, Bloody stools Genitourinary: DENIES: Urinary frequency, Urinary incontinence Hematologic/Lymphatics: DENIES: Lymphadenopathy, Prolonged bleed w/ proced Neurologic: DENIES: Paresthesias, Seizures Psychiatric: COMPLAINS OF: Anxiety Past Family Social History Coded Allergies: codeine (Verified Allergy, Severe, 06/13/17) morphine (Unverified Allergy, Severe, Anaphylaxis, 01/04/17) sulfamethoxazole (Verified Allergy, Severe, 06/13/17) trimethoprim (Verified Allergy, Severe, 06/13/17) Past Medical History COPD, asthma Long-term tobacco use History of bowel obstruction Questionable diabetes History of breast cancer Past Surgical History Right breast lumpectomy with subsequent radiation therapy 1995 Partial colon resection due to obstruction Reported Medications Penicillin V Potassium 250 Mg Tab 250 Mg PO Q8H Prednisone 20 Mg Tab 20 Mg PO daily Symbicort Inh (Budesonide/Formoterol Fumarate) 80-4.5 Mcg/Act Aero 2 Puff INH Q12HR Combivent Respimat Inh (Ipratropium-Albuterol Inh) 20-100 Fci/Act Aero 1 Puff INH QID Current Medications Medications (Trade) Dose Ordered Sig/Ely Route Start Time Stop Time Status Last Admin (Albuterol Neb) 1.25 mg Q2HR NEB PRN NEB 06/13/17 20:30 06/26/17 02:35 Miscellaneous Information 1 HS T-DERMAL 06/13/17 21:00 06/21/17 21:00 (Zofran Inj) 4 mg Q6H PRN IV PUSH 06/13/17 22:30 06/30/17 10:53 (Restoril) 15 mg HS PRN PO 06/13/17 22:00 (Ultram) 50 mg Q6H PRN PO 06/14/17 01:00 07/04/17 07:08 (Symbicort 80-4.5 Mcg Inh) 2 puff Q12HR INH 06/14/17 10:30 07/04/17 08:45 Patient Own Medication PT OWN MED: COMBIV... QID INH 06/14/17 10:15 Future Hold (Vivian-Colace) 1 tab BID PO 06/19/17 21:00 07/03/17 08:06 (Milk Of Magnesia Liq) 30 ml Q12H PRN PO 06/19/17 12:45 (Senokot) 17.2 mg Q12H PRN PO 06/19/17 12:45 (Dulcolax Supp) 10 mg DAILY PRN RECTAL 06/19/17 12:45 (Lasix) 20 mg DAILY PO 06/19/17 13:15 07/04/17 08:44 (Ativan Inj) 1 mg Q4H PRN IV PUSH 06/19/17 13:45 06/30/17 11:00 (K-Lyte Cl Eff) 25 meq DAILY PO 06/22/17 09:00 07/04/17 08:44 (Pill Splitter) 1 ea UNSCH PRN OTHER 06/25/17 14:15 (D50w (Vial) Inj) 50 ml UNSCH PRN IV PUSH 06/26/17 10:00 (Glucagon Inj) 1 mg UNSCH PRN OTHER 06/26/17 10:00 (Dilaudid Pf Inj) 1 mg MoWeFr PRN IV PUSH 06/30/17 09:00 06/30/17 10:57 (Motrin) 400 mg Q6H PRN PO 07/02/17 12:30 07/02/17 18:25 (Deltasone) 5 mg DAILY PO 07/04/17 09:00 07/04/17 08:44 (Lopressor) 25 mg Q12HR PO 07/04/17 09:00 07/04/17 08:44 Family History Father of coronary artery disease Mother at an old age but was a "hypochondriac. Substance Use Tobacco: 5-6 cigarettes per day Alcohol: Denies Prescription med abuse: Denies Illicits: Denies Psychosocial History Originally from [place], she moved to the area 9 years ago Just got for the third time August 2016. Living Will: Never completed Health Care Surrogate: Never completed Durable Power of Copy Center Specialist: Never completed Physical Exam Vital Signs Date Time Temp Pulse Resp B/P (MAP) Pulse Ox O2 Delivery O2 Flow Rate FiO2 07/04/17 08:00 97.1 92 19 121/76 (91) 96 07/04/17 04:00 97.3 94 18 143/81 (101) 100 07/04/17 00:00 92 07/04/17 00:00 98.0 120 18 119/82 (94) 97 07/03/17 20:00 97.5 106 18 114/72 (86) 97 07/03/17 20:00 Nasal Cannula 1.00 Humidified 07/03/17 16:00 97.6 120 20 138/81 (100) 95 07/03/17 12:00 98.1 127 19 120/72 (88) 97 07/04/17 07/05/17 19:00 07:00 Output Total 240 ml Balance -240 ml Drainage Total 240 ml Exam CONSTITUTIONAL/GENERAL: This is a middle age women, appears fatigued TUBES/LINES/DRAINS: wound vac SKIN: right leg wound vac, dressing. HEAD: Atraumatic. Normocephalic. EYES: Pupils equal and round and reactive. Extraocular motions intact. No scleral icterus. No injection or drainage. Fundi not examined. ENT: Hearing grossly normal. Nose without bleeding or purulent drainage. Throat without visible erythema, exudates, masses, or lesions. NECK: Trachea midline. Supple, nontender. No palpable thyroid enlargement or nodularity. CARDIOVASCULAR: Regular rate and rhythm without murmurs, gallops, or rubs. No JVD. Peripheral pulses symmetric. RESPIRATORY/CHEST: decrease breath sound bilat GASTROINTESTINAL: Abdomen soft, non-tender, nondistended. No hepato-splenomegaly , or palpable masses. No guarding. Bowel sounds present. GENITOURINARY: Without palpable bladder distension. Schmidt catheter in place. MUSCULOSKELETAL: Extremities without clubbing, cyanosis, or edema. No joint tenderness or effusion noted. No calf tenderness. No mottling or clubbing. LYMPHATICS: No palpable cervical or supraclavicular adenopathy. NEUROLOGICAL: Awake and alert. Motor and sensory grossly within normal limits. Follows commands. Cognitively sharp. Moves all extremities. PSYCHIATRIC: No obvious anxiety/depression. no apparent hallucinations or other psychotic thought process. Diagnostic Tests Laboratory Laboratory Tests Test 07/02/17 03:25 Blood Urea Nitrogen 11 MG/DL (7-18) Creatinine 1.10 MG/DL (0.50-1.00) Random Glucose 124 MG/DL (74-106) Calcium Level 8.3 MG/DL (8.5-10.1) Magnesium Level 2.2 MG/DL (1.5-2.5) Sodium Level 139 MEQ/L (136-145) Potassium Level 3.8 MEQ/L (3.5-5.1) Chloride Level 101 MEQ/L (98-107) Carbon Dioxide Level 33.4 MEQ/L (21.0-32.0) Anion Gap 5 MEQ/L (5-15) Estimat Glomerular Filtration Rate 50 ML/MIN (>89) Result Diagram: 07/01/17 0530 07/02/17 0325 Patient/Family Conference Present at Family Conference: patient Family Conference Location: Bedside Issues Discussed: * Palliative care role, purpose, approach * Additional medical, psychosocial, and spiritual history * Patients general health, functional status, and cognitive changes in the months leading up to the current hospitalization * Patient/family understanding of the current medical problems * Patient/family understanding of prognosis * Patients goals of care as best understood from advance directives and/or conversations and/or values * Current medical treatment options and benefits/burdens of those options * Likely scenarios comparing ongoing aggressive care with a transition to comfort measures only * Questions answered to the best of my ability * Palliative care contact information provided Assessment and Plan Disease Oriented Problem List: (1) Open leg wound Comment: Status post surgical debridement and wound VAC (2) COPD (chronic obstructive pulmonary disease) (3) Hyperglycemia (4) Tachycardia Symptom Scale: (1) Pain 0-10 Scale: 5 Pertinent Non-Medical Issues Psychosocial: Spiritual: Legal: Ethical issues impacting care: Important Contacts Yohan Martell (spouse) Prognosis Prognosis is guarded, have multiple comorbidities including COPD steroid dependent, dm, and severe wound infections. At risk of multiple hospitalizations. Code Status: No Code Plan ==Code Status- endorse DNR, say she will talk with anthony. She stated she does not want to wait, and want that to take place now. == Pain- get nauseated with morphine , dilaudid. . Continue Ultram for now. She did say last time wound vac was change, she used dilaudid/antiemetic and ativan which was better. no new med rec now. == goals of care: aggressive short of resuscitation. she will fill out Health Care Surrogate form. She knows that she has lots of challenges, and may decline from her comorbidites, wound complication or both. == palliative care will follow pt for recommendation of pain managment and review of goals of care as clinical condition evolves. Thank you for the opportunity to participate in the care of Ms. Gould. Attestation To help prompt me to consider important information that might be impacting today's encounter and assessment, information from prior notes written by myself or my colleagues may have been "brought forward" into today's note. My signature on this note, however, is an attestation that I personally performed the exam, history, and/or decision-making noted today, and, unless otherwise indicated, the interactions with patient, family, and staff as well as the review of records all occurred today. I also attest that the listed assessment and stated plan reflect my best clinical judgment today based on the combination of historical information, prior notes, and today's exam/ interactions. When time spent is documented, it refers only to time spent today by the signer, or if indicated, combined time spent today by collaborating physician/nurse practitioner. Gil Aaron MD Jul 04, 2017 10:19
[2017-07-04] MEDS: ALPRAZolam 0.25 MG TAB PO PRN (12:44)
[2017-07-04] MEDS: ONDANSETRON HCL 4 MG/2 ML VIAL IV PUSH PRN (12:45)
[2017-07-04] MEDS ORDERED: traMADol HCL 50 MG TAB PO ONE (12:45)
--- NOTE | 2017-07-04 14:37 | ECHRPT ---
Indication: cardiomyopathy CONCLUSIONS Normal left ventricular size and wall thickness. The left ventricular systolic function is normal wi th an estimated ejection fraction in the range of 60-65%. No definite wall motion abnormalities. Structurally normal mitral valve. [id number] mitral valve regurgitation. The aortic valve is not well visualized. Structurally normal tricuspid valve. There is trace tricuspid valve regurgitation. The estimated pulmonary arterial pressure is 40 mmHg. BP: / HR: Rhythm: MEASUREMENTS (Male / Female) Normal Values Technical Quality:Very technically difficult study 2D ECHO LV Diastolic Diameter PLAX 5.0 cm 4.2 - 5.9 / 3.9 - 5.3 cm LV Systolic Diameter PLAX 3.8 cm IVS Diastolic Thickness 1.3 cm 0.6 - 1.0 / 0.6 - 0.9 cm LVPW Diastolic Thickness 1.0 cm 0.6 - 1.0 / 0.6 - 0.9 cm LV Relative Wall Thickness 0.4 RV Internal Dim ED PLAX 2.7 cm M-MODE Aortic Root Diameter MM 3.6 cm LA Systolic Diameter MM 3.4 cm LA Ao Ratio MM 0.9 AV Cusp Separation MM 2.2 cm DOPPLER TR Peak Velocity 274.0 cm/s TR Peak Gradient 30.0 mmHg Right Atrial Pressure 10.0 mmHg Pulmonary Artery Systolic Pressu 40.0 mmHg Right Ventricular Systolic Press 40.0 mmHg FINDINGS LEFT VENTRICLE Normal left ventricular size and wall thickness. The left ventricular systolic function is normal wi th an estimated ejection fraction in the range of 60-65%. No definite wall motion abnormalities. RIGHT VENTRICLE Normal right ventricular size and systolic function. LEFT ATRIUM The left atrial size is normal. RIGHT ATRIUM The right atrial size is normal. ATRIAL SEPTUM Normal atrial septal thickness without atrial level shunting by limited color doppler interrogation. AORTA The aortic root and proximal ascending aorta are normal in size on limited imaging. MITRAL VALVE Structurally normal mitral valve. [id number] mitral valve regurgitation. AORTIC VALVE The aortic valve is not well visualized. TRICUSPID VALVE Structurally normal tricuspid valve. There is trace tricuspid valve regurgitation. The estimated pulmonary arterial pressure is 40 mmHg. PULMONARY VALVE No pulmonary valve regurgitation or stenosis. VESSELS The inferior vena cava is normal in size. PERICARDIUM No pericardial effusion. Jeff Evans MD (Electronically Signed) Final Date:04 July 2017 14:36
--- NOTE | 2017-07-04 15:12 | PD.WCN.NOT ---
Wound Consult Description: RLE wound VAC dressing change Communicated with: Zahida DEAL 7 sterling Recommendation: field radio technician will change Wound VAC this Monday Neg Pressure Wound Therapy Wound Location Wound Location: Right lower extremity Wound Description Length: ~23cm Width: ~38cm Depth: ~1cm Wound bed appearance: ~50% fascia ~30% red non granulating tissue ~20% red granulated tissue Periwound appearance: Other (Two small areas or partial thickness skin loss are seen on periwound) Settings Suction: 125 mmHg, Continuous Intensity: Low Other Information: Windowpaned Foam type: Black Number of pieces: other (two large pieces of black granufoam were used for the anterior lower leg and posterior lower leg. Two small pieces of black granufoam were used to fill in gaps.) Additonal Information Patient was seen today by personal lines underwriter.Patient was medicated with Ultram and Xanax .Dressing removed with some difficulty due to patient's tolerance. Removed one large piece of granufoam and oil emulsion gauze (adaptic) from wound bed. Calcium alginate was removed from partial thickness skin loss to periwound.Wound was cleansed with wound cleanser and patted dry. Partial thickness skin loss was covered with calcium alginate then window paned to protect periwound.Adaptic gauze applied to fascia. One large piece of granufoam was applied making contact with wound base on posterior lower leg. One large piece of granufoam was applied to anterior lower leg making contact with wound base. Two small pieces of granufoam were applied to exposed wound bed. Total of four pieces of granufoam were applied to wound bed.Hole was cut in dressing to expose granufoam. Sensi trac pad applied to exposed granufoam.VAC setting @ 125mmHg low continuous with no leaks noted.Patient tolerated VAC dressing fairly with difficulty during removal and application of granufoam to wound bed. Leonora Crespo [facility] Jul 04, 2017 15:12
--- NOTE | 2017-07-04 17:22 | HHI.PR ---
Subjective Remarks Pt was uncomfortable with wound VAC change. Objective Vitals Vital Signs Date Time Temp Pulse Resp B/P (MAP) Pulse Ox O2 Delivery O2 Flow Rate FiO2 07/04/17 12:00 96.7 91 18 109/78 (88) 100 07/04/17 09:50 96 Nasal Cannula 1.00 07/04/17 08:00 97.1 92 19 121/76 (91) 96 07/04/17 04:00 97.3 94 18 143/81 (101) 100 07/04/17 00:00 92 07/04/17 00:00 98.0 120 18 119/82 (94) 97 07/03/17 20:00 97.5 106 18 114/72 (86) 97 07/03/17 20:00 Nasal Cannula 1.00 Humidified 07/04/17 07/04/17 07/05/17 15:00 23:00 07:00 Output Total 240 ml Balance -240 ml Drainage Total 240 ml Result Diagram: 07/01/17 0530 07/02/17 0325 Imaging Last Impressions Chest X-Ray 06/24/17 0800 Signed Impressions: Service Date/Time: Saturday, June 24, 2017 08:04 - CONCLUSION: 1. Hyperinflation without infiltrate. 2. Small nodule right upper lobe. Outpatient CT chest recommended. David Maya MD Chest CT 06/24/17 0000 Signed Impressions: Service Date/Time: Saturday, June 24, 2017 16:21 - CONCLUSION: Areas of scarring in the lungs with COPD and scattered tiny nodules most likely benign, repeat noncontrast chest CT is suggested in 6 months as a conservative follow up. Sujit Bunch MD Abdomen X-Ray 06/21/17 0000 Signed Impressions: Service Date/Time: Wednesday, June 21, 2017 18:55 - CONCLUSION: No acute disease. Joaquin Freed MD Tibia/Fibula X-Ray 06/13/17 0000 Signed Impressions: Service Date/Time: Tuesday, June 13, 2017 20:40 - CONCLUSION: 1. Ulceration at the lateral leg with soft tissue swelling. No bony abnormality. Kostas Rosado MD Objective Remarks GENERAL: This is a well-nourished, well-developed patient, in no apparent distress. CARDIOVASCULAR: Regular rate and rhythm without murmurs, gallops, or rubs. RESPIRATORY: Clear to auscultation. Breath sounds equal bilaterally. No wheezes , rales, or rhonchi. GASTROINTESTINAL: Abdomen soft, non-tender, nondistended. Normal active bowel sounds MUSCULOSKELETAL: Extremities without clubbing, cyanosis, or edema. wound VAC in place at [facility] NEURO: Alert & Oriented x4 to person, place, time, situation. Moves all ext x4 A/P Problem List: (1) Open leg wound ICD Codes: S81.809A - Unspecified open wound, unspecified lower leg, initial encounter Status: Acute Plan: [facility] nonhealing wound - Patient with large, necrotic open wound right lower extremity x 2 months. - Wound culture growing gram negative rods - Blood cultures with no growth - Pt has been started on Zosyn and Vancomycin - General Surgery is following - Pt underwent surgical debridement with wound vac placement on 06/15/[address] Clark - Pt underwent a vac change on 06/17/17, 06/19, 06/21, 06/23, 06/26 - Pt has wound vac change at bedside on 06/30/17 and recommended for continued wound vac changes on Tuesdays and Fridays - plan to DC once cleared by general surgery - Pt with B/L LE edema and weeping, improving. Cr increased following IV lasix, Cr spiked at 1.44 (06/18) - Pt now on PO lasix. Follow creatinine, labs increased slightly but BUN is stable. - Ensure BID as pt has had some loose stools - Pain control PRN - Constipation precautions, Vivian-Colace BID, MOM PRB, Dulcolax PRN - Monitor labs daily - Supportive care - SCD on non-surgical leg - Pt was painful with VAC change 07/04/17, ultram was NOT sufficient. Pt previously received IV dilaudid - will change dilaudid to PO & try PO dilaudid prior to next VAC change. Pt does NOT want hydrocodone. - wound VAC with PO dilaudid on 07/07/17 - discharge to SNF once pt is comfortable with bedside wound VAC change. - appreciate input from Palliative Medicine. Tachycardia - Outpt 2D echo (04/03/17) --> Mild concentric LVH, Estimated EF 50%, Grade 1 diastolic dysfunction, Moderate mitral valve regurg, Mild tricuspid valve regurg, Normal estimated PA pressure, 32.7mmHg - Telemetry with noted sinus tachycardia - EKG in the ED noted sinus tachycardia - repeat EKG (06/23) --> sinus tachycardia, 109, with occasional PVC - continue Ultram PRN. add acetaminophen scheduled. Patient does not want stronger pain medication. She is fearful of sedation/side effects - place continuous telemetry for closer monitoring of HR and rhythm - suspect pain, anxiety, COPD, and prednisone are all contributing - Lexiscan requested per Dr. Parsons, Patient refusing -Pt has run Vt 07/02....cardiology consulted. echo ordered and ischemic w/up is considered. - Echocardiogram --> pending - Zulema (07/02) --> reviewed with Radiology. EF 61%, subtle inferior/basilar wall reversible defect - echocardiogram (07/04) --> EF 60-65% COPD/Chemical exposure hx in 08/2016 - PFT in 2016 with reported FEV1 of 0.51, 20% of predicted - Continue Symbicort BID and Combivent QID - Pt was given a dose of IV Solu-Medrol at admission - Prednisone 20mg alt with 10mg every other day -> (06/25) transitioned to Prednisone 10 mg daily - decrease PO prednisone to 5mg daily (07/04) - Duonebs to q6h while awake - Pt refused Budesonide Nebs BID - Supplemental O2 as needed - repeat CXR (06/24) hyperinflation without infiltrate. Small nodule RUL recommend outpatient follow up CT - CT chest without contrast (06/24) Areas of scarring in the lungs with COPD and scattered tiny nodules most likely benign, repeat noncontrast chest CT is suggested in 6 months as a conservative follow up Hyperglycemia - Pt likely with steroid induced hyperglycemia with her prolonged steroid use - Hgb A1C is 8.6% - She has been having some intermittent issues with hypoglycemia - NovoLog SSI Dc'd (06/22) - Accu checks ACHS (2) COPD (chronic obstructive pulmonary disease) ICD Codes: J44.9 - Chronic obstructive pulmonary disease, unspecified Status: Chronic (3) Hyperglycemia ICD Codes: R73.9 - Hyperglycemia, unspecified Status: Acute Problem Qualifiers (1) Open leg wound: Qualified Codes: S81.801A - Unspecified open wound, right lower leg, initial encounter Kin Parsons DO Jul 04, 2017 17:22
[2017-07-04] MEDS: REMOVE OLD PATCH T-DERMAL SCH (21:00)
[2017-07-05] VITALS (8 sets, daily range): BP systolic 108–139; BP diastolic 53–79; PULSE 109–120; RESP 17–21; TEMP 96.2–98.6; O2SAT 93–98
[2017-07-05] MEDS: traMADol HCL 50 MG TAB PO PRN ×3 (04:04→17:43)
--- NOTE | 2017-07-05 08:06 | PD.CARD.PN ---
Subjective Subjective Remarks Feels her breathing last night and this morning is a little tight. Telemetry from overnight reviewed with sinus tachycardia and occasional PACs/PVCs, rate currently ~110. No chest pain. Reports she has been able to feel palpitations with fast and slow heart rates in the past, not overnight. Objective Medications Current Medications Medications (Trade) Dose Ordered Sig/Ely Route Start Time Stop Time Status Last Admin (Albuterol Neb) 1.25 mg Q2HR NEB PRN NEB 06/13/17 20:30 06/26/17 02:35 Miscellaneous Information 1 HS T-DERMAL 06/13/17 21:00 06/21/17 21:00 (Zofran Inj) 4 mg Q6H PRN IV PUSH 06/13/17 22:30 07/04/17 12:45 (Restoril) 15 mg HS PRN PO 06/13/17 22:00 (Ultram) 50 mg Q6H PRN PO 06/14/17 01:00 07/05/17 04:04 (Symbicort 80-4.5 Mcg Inh) 2 puff Q12HR INH 06/14/17 10:30 07/04/17 21:40 Patient Own Medication PT OWN MED: COMBIV... QID INH 06/14/17 10:15 Future Hold (Vivian-Colace) 1 tab BID PO 06/19/17 21:00 07/03/17 08:06 (Milk Of Magnesia Liq) 30 ml Q12H PRN PO 06/19/17 12:45 (Senokot) 17.2 mg Q12H PRN PO 06/19/17 12:45 (Dulcolax Supp) 10 mg DAILY PRN RECTAL 06/19/17 12:45 (Lasix) 20 mg DAILY PO 06/19/17 13:15 07/04/17 08:44 (Ativan Inj) 1 mg Q4H PRN IV PUSH 06/19/17 13:45 06/30/17 11:00 (K-Lyte Cl Eff) 25 meq DAILY PO 06/22/17 09:00 07/04/17 08:44 (Pill Splitter) 1 ea UNSCH PRN OTHER 06/25/17 14:15 (D50w (Vial) Inj) 50 ml UNSCH PRN IV PUSH 06/26/17 10:00 (Glucagon Inj) 1 mg UNSCH PRN OTHER 06/26/17 10:00 (Dilaudid Pf Inj) 1 mg MoWeFr PRN IV PUSH 06/30/17 09:00 06/30/17 10:57 (Motrin) 400 mg Q6H PRN PO 07/02/17 12:30 07/02/17 18:25 (Deltasone) 5 mg DAILY PO 07/04/17 09:00 07/04/17 08:44 (Lopressor) 25 mg Q12HR PO 07/04/17 09:00 07/04/17 21:37 (Xanax) 0.25 mg Q8H PRN PO 07/04/17 12:45 07/04/17 12:44 Vital Signs / I&O Vital Signs Date Time Temp Pulse Resp B/P (MAP) Pulse Ox O2 Delivery O2 Flow Rate FiO2 07/05/17 05:15 96.5 109 21 128/79 (95) 93 07/05/17 00:21 98.6 110 17 139/77 (97) 94 07/04/17 20:30 97.6 89 18 125/76 (92) 97 07/04/17 16:00 97.1 124 19 141/86 (104) 99 07/04/17 12:00 96.7 91 18 109/78 (88) 100 07/04/17 10:00 Nasal Cannula 2.00 07/04/17 09:50 96 Nasal Cannula 1.00 I/O 07/04/17 07/04/17 07/04/17 07/05/17 07/05/17 07/05/17 07:00 15:00 23:00 07:00 15:00 23:00 Intake Total 120 ml 720 ml 480 ml Output Total 240 ml 550 ml Balance 120 ml -240 ml 720 ml -70 ml Intake Oral 120 ml 720 ml 480 ml Output Urine Total 400 ml Drainage Total 240 ml 150 ml # Voids 1 3 1 # Bowel Movements 1 Physical Exam GENERAL: Well-developed well-nourished. In no acute distress. NECK: No carotid bruits. No JVD. CARDIOVASCULAR: Tachycardic rate and regular rhythm. No murmur appreciated. RESPIRATORY: No accessory muscle use. Diminished breath sounds in all lung farrell. No wheezing. MUSCULOSKELETAL: Wound VAC in place right lower extremity. NEUROLOGICAL: Awake and alert. Normal speech. Imaging Last Impressions Myocardial Perfusion Scan Nuc Med 07/03/17 0000 Signed Impressions: Service Date/Time: Monday, July 03, 2017 13:26 - CONCLUSION: 1. Apical thinning versus old apical infarct. 2. No reversibility to suggest ischemia. 3. Adequate wall motion throughout with an estimated ejection fraction of 61%% RISK CATEGORY: Low (<1%% Annual Mortality Rate) Yamil Pozo MD Chest X-Ray 06/24/17 0800 Signed Impressions: Service Date/Time: Saturday, June 24, 2017 08:04 - CONCLUSION: 1. Hyperinflation without infiltrate. 2. Small nodule right upper lobe. Outpatient CT chest recommended. David Maya MD Chest CT 06/24/17 0000 Signed Impressions: Service Date/Time: Saturday, June 24, 2017 16:21 - CONCLUSION: Areas of scarring in the lungs with COPD and scattered tiny nodules most likely benign, repeat noncontrast chest CT is suggested in 6 months as a conservative follow up. Sujit Bunch MD Abdomen X-Ray 06/21/17 0000 Signed Impressions: Service Date/Time: Wednesday, June 21, 2017 18:55 - CONCLUSION: No acute disease. Joaquin Freed MD Tibia/Fibula X-Ray 06/13/17 0000 Signed Impressions: Service Date/Time: Tuesday, June 13, 2017 20:40 - CONCLUSION: 1. Ulceration at the lateral leg with soft tissue swelling. No bony abnormality. Kostas Rosado MD Assessment and Plan Assessment and Plan This is a 66-year-old woman admitted to the hospital for nonhealing ulcer. This began essentially this past August. She has been subsequently admitted for surgical debridement and wound vac. She had been progressing well, developed a 19 beat run of ventricular tachycardia overnight 07/02 and we have been asked to see her in that regard. NSVT: Lexiscan showed no ischemia. Echocardiogram unremarkable. Low dose metoprolol added. Morales Del Toro Jul 05, 2017 08:06
[2017-07-05] MEDS: predniSONE 5 MG TAB PO SCH (08:43)
[2017-07-05] MEDS: METOPROLOL TARTRATE 25 MG TAB PO SCH ×2 (08:43→20:53)
[2017-07-05] MEDS: POTASSIUM CHLORIDE 25 MEQ EFFERVESCENT TAB PO SCH (08:43)
[2017-07-05] MEDS: FUROSEMIDE 20 MG TAB PO SCH (08:44)
[2017-07-05] MEDS: DOCUSATE SODIUM 50 MG/SENNA 8.6 MG TAB PO SCH ×2 (08:44→20:53)
[2017-07-05] MEDS: BUDESONIDE-FORMOTEROL 80/4.5 MCG INHALER INH SCH ×2 (08:45→20:47)
[2017-07-05] MEDS: ONDANSETRON HCL 4 MG/2 ML VIAL IV PUSH PRN (12:39)
[2017-07-05] MEDS: LORazepam 2 MG/ML VIAL IV PUSH PRN (12:59)
--- NOTE | 2017-07-05 13:28 | HHI.PR ---
Subjective Remarks No new complaints. Objective Vitals Vital Signs Date Time Temp Pulse Resp B/P (MAP) Pulse Ox O2 Delivery O2 Flow Rate FiO2 07/05/17 12:20 2.00 07/05/17 10:00 98 Nasal Cannula 2.00 07/05/17 08:00 98.6 114 18 139/64 (89) 98 07/05/17 05:15 96.5 109 21 128/79 (95) 93 07/05/17 00:21 98.6 110 17 139/77 (97) 94 07/04/17 20:30 97.6 89 18 125/76 (92) 97 07/04/17 16:00 97.1 124 19 141/86 (104) 99 Result Diagram: 07/01/17 0530 07/02/17 0325 Imaging Last Impressions Chest X-Ray 06/24/17 0800 Signed Impressions: Service Date/Time: Saturday, June 24, 2017 08:04 - CONCLUSION: 1. Hyperinflation without infiltrate. 2. Small nodule right upper lobe. Outpatient CT chest recommended. David Maya MD Chest CT 06/24/17 0000 Signed Impressions: Service Date/Time: Saturday, June 24, 2017 16:21 - CONCLUSION: Areas of scarring in the lungs with COPD and scattered tiny nodules most likely benign, repeat noncontrast chest CT is suggested in 6 months as a conservative follow up. Sujit Bunch MD Abdomen X-Ray 06/21/17 0000 Signed Impressions: Service Date/Time: Wednesday, June 21, 2017 18:55 - CONCLUSION: No acute disease. Joaquin Freed MD Tibia/Fibula X-Ray 06/13/17 0000 Signed Impressions: Service Date/Time: Tuesday, June 13, 2017 20:40 - CONCLUSION: 1. Ulceration at the lateral leg with soft tissue swelling. No bony abnormality. Kostas Rosado MD Objective Remarks GENERAL: This is a well-nourished, well-developed patient, in no apparent distress. CARDIOVASCULAR: Regular rate and rhythm without murmurs, gallops, or rubs. RESPIRATORY: Clear to auscultation. Breath sounds equal bilaterally. No wheezes , rales, or rhonchi. GASTROINTESTINAL: Abdomen soft, non-tender, nondistended. Normal active bowel sounds MUSCULOSKELETAL: Extremities without clubbing, cyanosis, or edema. wound VAC in place at [facility] NEURO: Alert & Oriented x4 to person, place, time, situation. Moves all ext x4 A/P Problem List: (1) Open leg wound ICD Codes: S81.809A - Unspecified open wound, unspecified lower leg, initial encounter Status: Acute Plan: [facility] nonhealing wound - Patient with large, necrotic open wound right lower extremity x 2 months. - Wound culture growing gram negative rods - Blood cultures with no growth - Pt has been started on Zosyn and Vancomycin - General Surgery is following - Pt underwent surgical debridement with wound vac placement on 06/15/[address] Clark - Pt underwent a vac change on 06/17/17, 06/19, 06/21, 06/23, 06/26 - Pt has wound vac change at bedside on 06/30/17 and recommended for continued wound vac changes on Tuesdays and Fridays - plan to DC once cleared by general surgery - Pt with B/L LE edema and weeping, improving. Cr increased following IV lasix, Cr spiked at 1.44 (06/18) - Pt now on PO lasix. Follow creatinine, labs increased slightly but BUN is stable. - Ensure BID as pt has had some loose stools - Pain control PRN - Constipation precautions, Vivian-Colace BID, MOM PRB, Dulcolax PRN - Monitor labs daily - Supportive care - SCD on non-surgical leg - Pt was painful with VAC change 07/04/17, ultram was NOT sufficient. Pt previously received IV dilaudid - will change dilaudid to PO & try PO dilaudid prior to next VAC change. Pt does NOT want hydrocodone. - wound VAC with PO dilaudid on 07/07/17 - discharge to SNF once pt is comfortable with bedside wound VAC change. - appreciate input from Palliative Medicine. - continue current treatment plan as outlined above. Tachycardia - Outpt 2D echo (04/03/17) --> Mild concentric LVH, Estimated EF 50%, Grade 1 diastolic dysfunction, Moderate mitral valve regurg, Mild tricuspid valve regurg, Normal estimated PA pressure, 32.7mmHg - Telemetry with noted sinus tachycardia - EKG in the ED noted sinus tachycardia - repeat EKG (06/23) --> sinus tachycardia, 109, with occasional PVC - continue Ultram PRN. add acetaminophen scheduled. Patient does not want stronger pain medication. She is fearful of sedation/side effects - place continuous telemetry for closer monitoring of HR and rhythm - suspect pain, anxiety, COPD, and prednisone are all contributing - Lexiscan requested per Dr. Parsons, Patient refusing -Pt has run Vt 07/02....cardiology consulted. echo ordered and ischemic w/up is considered. - Echocardiogram --> pending - Zulema (07/02) --> reviewed with Radiology. EF 61%, subtle inferior/basilar wall reversible defect - echocardiogram (07/04) --> EF 60-65% COPD/Chemical exposure hx in 08/2016 - PFT in 2016 with reported FEV1 of 0.51, 20% of predicted - Continue Symbicort BID and Combivent QID - Pt was given a dose of IV Solu-Medrol at admission - Prednisone 20mg alt with 10mg every other day -> (06/25) transitioned to Prednisone 10 mg daily - decrease PO prednisone to 5mg daily (07/04) - Duonebs to q6h while awake - Pt refused Budesonide Nebs BID - Supplemental O2 as needed - repeat CXR (06/24) hyperinflation without infiltrate. Small nodule RUL recommend outpatient follow up CT - CT chest without contrast (06/24) Areas of scarring in the lungs with COPD and scattered tiny nodules most likely benign, repeat noncontrast chest CT is suggested in 6 months as a conservative follow up Hyperglycemia - Pt likely with steroid induced hyperglycemia with her prolonged steroid use - Hgb A1C is 8.6% - She has been having some intermittent issues with hypoglycemia - NovoLog SSI Dc'd (06/22) - Accu checks ACHS (2) COPD (chronic obstructive pulmonary disease) ICD Codes: J44.9 - Chronic obstructive pulmonary disease, unspecified Status: Chronic (3) Hyperglycemia ICD Codes: R73.9 - Hyperglycemia, unspecified Status: Acute Problem Qualifiers (1) Open leg wound: Qualified Codes: S81.801A - Unspecified open wound, right lower leg, initial encounter Kin Parsons DO Jul 05, 2017 13:28
[2017-07-05] MEDS ORDERED: HYDROmorphone HCL 2 MG TAB PO PRN (13:30)
[2017-07-05] MEDS ORDERED: PILL SPLITTER OTHER PRN (14:30)
[2017-07-05] MEDS: RESP: ALBUTEROL 1.25 MG/3 ML NEB (PRN) NEB (16:23)
--- NOTE | 2017-07-05 17:55 | HHI.HCPN ---
Reason for visit a. To assist with evaluation and management of symptoms including:pain b. To assist medical decision maker(s) with: better understanding of current medical conditions; weighing benefits/burdens of medical treatment options; making medical treatment decisions. Subjective/Interval History Patient rated pain as better than yesterday. No change in goals of care. Health Care Surrogate and Community DNR signed and completed. Advance Directives Living Will: Never completed Health Care Surrogate: Never completed Durable Power of Residence Supervisor: Never completed Objective Vital Signs Date Time Temp Pulse Resp B/P (MAP) Pulse Ox O2 Delivery O2 Flow Rate FiO2 07/05/17 16:00 96.9 120 19 135/70 (91) 97 07/05/17 12:20 2.00 07/05/17 12:00 97.6 117 18 125/77 (93) 97 07/05/17 10:00 98 Nasal Cannula 2.00 07/05/17 08:00 98.6 114 18 139/64 (89) 98 07/05/17 05:15 96.5 109 21 128/79 (95) 93 07/05/17 00:21 98.6 110 17 139/77 (97) 94 07/04/17 20:30 97.6 89 18 125/76 (92) 97 Intake & Output 07/05/17 07/05/17 06:59 18:59 Intake Total 480 ml Output Total 550 ml Balance -70 ml Intake Oral 480 ml Output Urine Total 400 ml Drainage Total 150 ml # Voids 1 Physical Exam CONSTITUTIONAL/GENERAL: This is a middle age women, appears fatigued TUBES/LINES/DRAINS: wound vac SKIN: right leg wound vac, dressing. HEAD: Atraumatic. Normocephalic. EYES: Pupils equal and round and reactive. Extraocular motions intact. No scleral icterus. No injection or drainage. Fundi not examined. ENT: Hearing grossly normal. Nose without bleeding or purulent drainage. Throat without visible erythema, exudates, masses, or lesions. NECK: Trachea midline. Supple, nontender. No palpable thyroid enlargement or nodularity. CARDIOVASCULAR: Regular rate and rhythm without murmurs, gallops, or rubs. No JVD. Peripheral pulses symmetric. RESPIRATORY/CHEST: decrease breath sound bilat GASTROINTESTINAL: Abdomen soft, non-tender, nondistended. No hepato-splenomegaly , or palpable masses. No guarding. Bowel sounds present. GENITOURINARY: Without palpable bladder distension. Schmidt catheter in place. MUSCULOSKELETAL: Extremities without clubbing, cyanosis, or edema. No joint tenderness or effusion noted. No calf tenderness. No mottling or clubbing. LYMPHATICS: No palpable cervical or supraclavicular adenopathy. NEUROLOGICAL: Awake and alert. Motor and sensory grossly within normal limits. Follows commands. Cognitively sharp. Moves all extremities. PSYCHIATRIC: No obvious anxiety/depression. no apparent hallucinations or other psychotic thought process. Diagnostic Tests Result Diagram: 07/01/17 0530 07/02/17 0325 Assessment and Plan Disease Oriented Problem List: (1) Open leg wound Comment: Status post surgical debridement and wound VAC (2) COPD (chronic obstructive pulmonary disease) (3) Hyperglycemia (4) Tachycardia Symptom Scale: (1) Pain 0-10 Scale: 5 Pertinent Non-Medical Issues Psychosocial: Spiritual: Legal: Ethical issues impacting care: Important Contacts Yohan Martell (spouse) Prognosis Prognosis is guarded, have multiple comorbidities including COPD steroid dependent, dm, and severe wound infections. At risk of multiple hospitalizations. Code Status: No Code Plan ==Code Status- endorse DNR, Community DNR signed. == Pain- get nauseated with morphine , dilaudid. . Continue Ultram for now. She did say last time wound vac was change, she used dilaudid/antiemetic and ativan which was better. no new med rec now. == heatlh care surrogate form completed: Pt's is HCS. == goals of care: aggressive short of resuscitation. == palliative care will follow pt for recommendation of pain managment and review of goals of care as clinical condition evolves. Attestation To help prompt me to consider important information that might be impacting today's encounter and assessment, information from prior notes written by myself or my colleagues may have been "brought forward" into today's note. My signature on this note, however, is an attestation that I personally performed the exam, history, and/or decision-making noted today, and, unless otherwise indicated, the interactions with patient, family, and staff as well as the review of records all occurred today. I also attest that the listed assessment and stated plan reflect my best clinical judgment today based on the combination of historical information, prior notes, and today's exam/ interactions. When time spent is documented, it refers only to time spent today by the signer, or if indicated, combined time spent today by collaborating physician/nurse practitioner. Gil Aaron MD Jul 05, 2017 17:55
[2017-07-05] MEDS: REMOVE OLD PATCH T-DERMAL SCH (21:00)
[2017-07-06] VITALS (7 sets, daily range): BP systolic 101–143; BP diastolic 60–79; PULSE 72–126; RESP 18–20; TEMP 98.4–99.1; O2SAT 92–100
[2017-07-06] MEDS: traMADol HCL 50 MG TAB PO PRN ×3 (03:49→17:56)
[2017-07-06] MEDS: POTASSIUM CHLORIDE 25 MEQ EFFERVESCENT TAB PO SCH (08:13)
[2017-07-06] MEDS: DOCUSATE SODIUM 50 MG/SENNA 8.6 MG TAB PO SCH ×2 (08:13→21:00)
[2017-07-06] MEDS: FUROSEMIDE 20 MG TAB PO SCH (08:13)
[2017-07-06] MEDS: METOPROLOL TARTRATE 25 MG TAB PO SCH ×2 (08:13→22:38)
[2017-07-06] MEDS: predniSONE 5 MG TAB PO SCH (08:13)
[2017-07-06] MEDS: BUDESONIDE-FORMOTEROL 80/4.5 MCG INHALER INH SCH ×2 (08:15→22:35)
[2017-07-06 12:20] LABS: AUTOMATED NEUTROPHIL # 6.1 TH/MM3 (1.8-7.7); BASOPHIL # 0.1 TH/MM3 (0-0.2); BASOPHIL % 0.7 % (0.0-2.0); EOSINOPHIL # 0.2 TH/MM3 (0-0.4); EOSINOPHIL % 2.3 % (0.0-4.0); HEMATOCRIT 24.6 % (35.0-46.0); HEMOGLOBIN 8.4 GM/DL (11.6-15.3); LYMPH % 10.7 % (9.0-44.0); LYMPHOCYTE # 0.8 TH/MM3 (1.0-4.8); MEAN CELL VOLUME 89.5 FL (80.0-100.0); MEAN CORPUSCULAR HEMOGLOBIN 30.5 PG (27.0-34.0); MEAN CORPUSCULAR HGB CONC 34.1 % (32.0-36.0); MEAN PLATELET VOLUME 6.7 FL (7.0-11.0); MONO % 7.2 % (0.0-8.0); MONOCYTE # 0.6 TH/MM3 (0-0.9); NEUT % 79.1 % (16.0-70.0); PLATELET COUNT 322 TH/MM3 (150-450); RED BLOOD COUNT 2.75 MIL/MM3 (4.00-5.30); RED CELL DISTRIBUTION WIDTH 15.2 % (11.6-17.2); WHITE BLOOD COUNT 7.7 TH/MM3 (4.0-11.0)
[2017-07-06 13:01] LABS: BICARBONATE 31.5 MEQ/L (21.0-32.0); CALCIUM 8.1 MG/DL (8.5-10.1); CREATININE 1.09 MG/DL (0.50-1.00)
[2017-07-06 13:15] LABS: BANDS 20 % (0-6); LYMPHOCYTES 9 % (9-44); MONOCYTES 7 % (0-8); MYELOCYTES 2 % (0-0); NEUTROPHIL # MANUAL DIFF 6.3 TH/MM3 (1.8-7.7); POLYS (SEG NEUTROPHILS) 60 % (16-70)
--- NOTE | 2017-07-06 14:39 | EKG ---
Date Performed: 07/05/2017 Time Performed: 14:26:23 PTAGE: 66 years EKG: SINUS TACHYCARDIA WITH OCCASIONAL SUPRAVENTRICULAR PREMATURE COMPLEXES ABNORMAL RHYTHM ECG PREVIOUS TRACING : 06/23/2017 10.44 Since the prior tracing, there has been no significant blackburn DOCTOR: Allan Henriquez Interpretating Date/Time 07/06/2017 14:33:25
--- NOTE | 2017-07-06 14:52 | HHI.PR ---
Subjective Remarks Patient reports feeling better today than yesterday offers no complaints at this time Objective Vitals Vital Signs Date Time Temp Pulse Resp B/P (MAP) Pulse Ox O2 Delivery O2 Flow Rate FiO2 07/06/17 12:00 98.6 72 20 101/76 (84) 98 07/06/17 09:58 95 Nasal Cannula 2.00 07/06/17 08:00 98.8 99 18 112/65 (81) 98 07/06/17 04:00 98.5 125 20 143/69 (93) 92 07/06/17 00:00 98.4 113 20 127/60 (82) 100 07/05/17 20:00 96.2 120 20 108/53 (71) 96 07/05/17 20:00 96 Nasal Cannula 2.00 07/05/17 19:00 115 07/05/17 16:00 96.9 120 19 135/70 (91) 97 Result Diagram: 07/06/17 0909 07/06/17 1134 Other Results Laboratory Tests Test 07/06/17 09:09 07/06/17 11:34 White Blood Count 7.7 TH/MM3 Red Blood Count 2.75 MIL/MM3 Hemoglobin 8.4 GM/DL Hematocrit 24.6 % Mean Corpuscular Volume 89.5 FL Mean Corpuscular Hemoglobin 30.5 PG Mean Corpuscular Hemoglobin Concent 34.1 % Red Cell Distribution Width 15.2 % Platelet Count 322 TH/MM3 Mean Platelet Volume 6.7 FL Neutrophils (%) (Auto) 79.1 % Lymphocytes (%) (Auto) 10.7 % Monocytes (%) (Auto) 7.2 % Eosinophils (%) (Auto) 2.3 % Basophils (%) (Auto) 0.7 % Neutrophils # (Auto) 6.1 TH/MM3 Lymphocytes # (Auto) 0.8 TH/MM3 Monocytes # (Auto) 0.6 TH/MM3 Eosinophils # (Auto) 0.2 TH/MM3 Basophils # (Auto) 0.1 TH/MM3 CBC Comment AUTO DIFF Differential Total Cells Counted 100 Neutrophils % (Manual) 60 % Band Neutrophils % 20 % Lymphocytes % 9 % Monocytes % 7 % Eosinophils % 2 % Neutrophils # (Manual) 6.3 TH/MM3 Myelocytes 2 % Differential Comment FINAL DIFF MANUAL Platelet Estimate NORMAL Platelet Morphology Comment NORMAL Red Cell Morphology Comment NORMAL Blood Urea Nitrogen 9 MG/DL Creatinine 1.09 MG/DL Random Glucose 73 MG/DL Calcium Level 8.1 MG/DL Sodium Level 138 MEQ/L Potassium Level 3.8 MEQ/L Chloride Level 99 MEQ/L Carbon Dioxide Level 31.5 MEQ/L Anion Gap 8 MEQ/L Estimat Glomerular Filtration Rate 50 ML/MIN Imaging Last Impressions Chest X-Ray 06/24/17 0800 Signed Impressions: Service Date/Time: Saturday, June 24, 2017 08:04 - CONCLUSION: 1. Hyperinflation without infiltrate. 2. Small nodule right upper lobe. Outpatient CT chest recommended. David Maya MD Chest CT 06/24/17 0000 Signed Impressions: Service Date/Time: Saturday, June 24, 2017 16:21 - CONCLUSION: Areas of scarring in the lungs with COPD and scattered tiny nodules most likely benign, repeat noncontrast chest CT is suggested in 6 months as a conservative follow up. Sujit Bunch MD Abdomen X-Ray 06/21/17 0000 Signed Impressions: Service Date/Time: Wednesday, June 21, 2017 18:55 - CONCLUSION: No acute disease. Joaquin Freed MD Tibia/Fibula X-Ray 06/13/17 0000 Signed Impressions: Service Date/Time: Tuesday, June 13, 2017 20:40 - CONCLUSION: 1. Ulceration at the lateral leg with soft tissue swelling. No bony abnormality. Kostas Roasdo MD Objective Remarks GENERAL: This is a well-nourished, well-developed patient, in no apparent distress. CARDIOVASCULAR: Regular rate and rhythm RESPIRATORY: Clear to auscultation. Breath sounds equal bilaterally. GASTROINTESTINAL: Abdomen soft, non-tender, nondistended. Normal active bowel sounds MUSCULOSKELETAL: Extremities without clubbing, cyanosis, or edema. wound VAC in place at [facility] NEURO: Alert & Oriented x4 to person, place, time, situation. Moves all ext x4 Procedures Pt underwent surgical debridement with wound vac placement on 06/15/[address] Clark - Pt underwent a vac change in OR on 06/17/17, 06/19, 06/21, 06/23, 06/26 - Pt has wound vac change at bedside on 06/30/17, 07/04/17 and recommended for continued wound vac changes on Tuesdays and Fridays A/P Problem List: (1) Open leg wound ICD Codes: S81.809A - Unspecified open wound, unspecified lower leg, initial encounter Status: Acute Plan: [facility]LE nonhealing wound - Patient with large, necrotic open wound right lower extremity x 2 months. - Wound culture growing gram negative rods - Blood cultures with no growth - Pt has been started on Zosyn and Vancomycin - General Surgery is following - Pt underwent surgical debridement with wound vac placement on 06/15/[address] Clark - Pt underwent a vac change on 06/17/17, 06/19, 06/21, 06/23, 06/26 - Pt has wound vac change at bedside on 06/30/17 and recommended for continued wound vac changes on Tuesdays and Fridays - plan to DC once patient able to tolerated bedside wound vac changes. Patient is very weak and will likely requir DC to SNF for rehab, strengthening and wound vac changes - Pt with B/L LE edema and weeping, improving. Cr increased following IV lasix, Cr spiked at 1.44 (06/18) - Pt now on PO lasix. Follow creatinine, labs increased slightly but BUN is stable. - Ensure BID as pt has had some loose stools - Pain control PRN - Constipation precautions, Vivian-Colace BID, MOM PRB, Dulcolax PRN - Monitor labs daily - Supportive care - SCD on non-surgical leg - Pt was painful with VAC change 07/04/17, ultram was NOT sufficient. Pt previously received IV dilaudid - will change dilaudid to PO & try PO dilaudid prior to next VAC change. Pt does NOT want hydrocodone. - wound VAC with PO dilaudid on 07/07/17 - discharge to SNF once pt is comfortable with bedside wound VAC change. - appreciate input from Palliative Medicine. - continue current treatment plan as outlined above. Tachycardia - Outpt 2D echo (04/03/17) --> Mild concentric LVH, Estimated EF 50%, Grade 1 diastolic dysfunction, Moderate mitral valve regurg, Mild tricuspid valve regurg, Normal estimated PA pressure, 32.7mmHg - Telemetry with noted sinus tachycardia - EKG in the ED noted sinus tachycardia - repeat EKG (06/23) --> sinus tachycardia, 109, with occasional PVC - continue Ultram PRN. add acetaminophen scheduled. Patient does not want stronger pain medication. She is fearful of sedation/side effects - place continuous telemetry for closer monitoring of HR and rhythm - suspect pain, anxiety, COPD, and prednisone are all contributing - Lexiscan requested per Dr. Parsons, Patient refusing -Pt has run Vt 07/02....cardiology consulted. echo ordered and ischemic w/up is considered. - Echocardiogram --> pending - Zulema (07/02) --> reviewed with Radiology. EF 61%, subtle inferior/basilar wall reversible defect - echocardiogram (07/04) --> EF 60-65% COPD/Chemical exposure hx in 08/2016 - PFT in 2016 with reported FEV1 of 0.51, 20% of predicted - Continue Symbicort BID and Combivent QID - Pt was given a dose of IV Solu-Medrol at admission - Prednisone 20mg alt with 10mg every other day -> (06/25) transitioned to Prednisone 10 mg daily - decrease PO prednisone to 5mg daily (07/04) - Duonebs to q6h while awake - Pt refused Budesonide Nebs BID - Supplemental O2 as needed - repeat CXR (06/24) hyperinflation without infiltrate. Small nodule RUL recommend outpatient follow up CT - CT chest without contrast (06/24) Areas of scarring in the lungs with COPD and scattered tiny nodules most likely benign, repeat noncontrast chest CT is suggested in 6 months as a conservative follow up Hyperglycemia - Pt likely with steroid induced hyperglycemia with her prolonged steroid use - Hgb A1C is 8.6% - She has been having some intermittent issues with hypoglycemia - NovoLog SSI Dc'd (06/22) - Accu checks ACHS (2) COPD (chronic obstructive pulmonary disease) ICD Codes: J44.9 - Chronic obstructive pulmonary disease, unspecified Status: Chronic (3) Hyperglycemia ICD Codes: R73.9 - Hyperglycemia, unspecified Status: Acute Problem Qualifiers (1) Open leg wound: Qualified Codes: S81.801A - Unspecified open wound, right lower leg, initial encounter Radha Bansal Jul 06, 2017 14:52
--- NOTE | 2017-07-06 14:52 | HHI.PR ---
Subjective Remarks No new complaints. Objective Vitals Vital Signs Date Time Temp Pulse Resp B/P (MAP) Pulse Ox O2 Delivery O2 Flow Rate FiO2 07/06/17 12:00 98.6 72 20 101/76 (84) 98 07/06/17 09:58 95 Nasal Cannula 2.00 07/06/17 08:00 98.8 99 18 112/65 (81) 98 07/06/17 04:00 98.5 125 20 143/69 (93) 92 07/06/17 00:00 98.4 113 20 127/60 (82) 100 07/05/17 20:00 96.2 120 20 108/53 (71) 96 07/05/17 20:00 96 Nasal Cannula 2.00 07/05/17 19:00 115 07/05/17 16:00 96.9 120 19 135/70 (91) 97 Result Diagram: 07/06/17 0909 07/06/17 1134 Imaging Last Impressions Chest X-Ray 06/24/17 0800 Signed Impressions: Service Date/Time: Saturday, June 24, 2017 08:04 - CONCLUSION: 1. Hyperinflation without infiltrate. 2. Small nodule right upper lobe. Outpatient CT chest recommended. David Maya MD Chest CT 06/24/17 0000 Signed Impressions: Service Date/Time: Saturday, June 24, 2017 16:21 - CONCLUSION: Areas of scarring in the lungs with COPD and scattered tiny nodules most likely benign, repeat noncontrast chest CT is suggested in 6 months as a conservative follow up. Sujit Bunch MD Abdomen X-Ray 06/21/17 0000 Signed Impressions: Service Date/Time: Wednesday, June 21, 2017 18:55 - CONCLUSION: No acute disease. Joaquin Freed MD Tibia/Fibula X-Ray 06/13/17 0000 Signed Impressions: Service Date/Time: Tuesday, June 13, 2017 20:40 - CONCLUSION: 1. Ulceration at the lateral leg with soft tissue swelling. No bony abnormality. Kostas Rosado MD Objective Remarks GENERAL: This is a well-nourished, well-developed patient, in no apparent distress. CARDIOVASCULAR: Regular rate and rhythm without murmurs, gallops, or rubs. RESPIRATORY: Clear to auscultation. Breath sounds equal bilaterally. No wheezes , rales, or rhonchi. GASTROINTESTINAL: Abdomen soft, non-tender, nondistended. Normal active bowel sounds MUSCULOSKELETAL: Extremities without clubbing, cyanosis, or edema. wound VAC in place at [facility] NEURO: Alert & Oriented x4 to person, place, time, situation. Moves all ext x4 A/P Problem List: (1) Open leg wound ICD Codes: S81.809A - Unspecified open wound, unspecified lower leg, initial encounter Status: Acute Plan: [facility] nonhealing wound - Patient with large, necrotic open wound right lower extremity x 2 months. - Wound culture growing gram negative rods - Blood cultures with no growth - Pt has been started on Zosyn and Vancomycin - General Surgery is following - Pt underwent surgical debridement with wound vac placement on 06/15/[address] Clark - Pt underwent a vac change on 06/17/17, 06/19, 06/21, 06/23, 06/26 - Pt has wound vac change at bedside on 06/30/17 and recommended for continued wound vac changes on Tuesdays and Fridays - plan to DC once cleared by general surgery - Pt with B/L LE edema and weeping, improving. Cr increased following IV lasix, Cr spiked at 1.44 (06/18) - Pt now on PO lasix. Follow creatinine, labs increased slightly but BUN is stable. - Ensure BID as pt has had some loose stools - Pain control PRN - Constipation precautions, Vivian-Colace BID, MOM PRB, Dulcolax PRN - Monitor labs daily - Supportive care - SCD on non-surgical leg - Pt was painful with VAC change 07/04/17, ultram was NOT sufficient. Pt previously received IV dilaudid - will change dilaudid to PO & try PO dilaudid prior to next VAC change. Pt does NOT want hydrocodone. - wound VAC with PO dilaudid on 07/07/17 - discharge to SNF once pt is comfortable with bedside wound VAC change. - if pt able to tolerate wound VAC change 07/06/17, then will d/c to SNF - appreciate input from Palliative Medicine. Tachycardia - Outpt 2D echo (04/03/17) --> Mild concentric LVH, Estimated EF 50%, Grade 1 diastolic dysfunction, Moderate mitral valve regurg, Mild tricuspid valve regurg, Normal estimated PA pressure, 32.7mmHg - Telemetry with noted sinus tachycardia - EKG in the ED noted sinus tachycardia - repeat EKG (06/23) --> sinus tachycardia, 109, with occasional PVC - continue Ultram PRN. add acetaminophen scheduled. Patient does not want stronger pain medication. She is fearful of sedation/side effects - place continuous telemetry for closer monitoring of HR and rhythm - suspect pain, anxiety, COPD, and prednisone are all contributing - Lexiscan requested per Dr. Parsons, Patient refusing -Pt has run Vt 07/02....cardiology consulted. echo ordered and ischemic w/up is considered. - Echocardiogram --> pending - Zulema (07/02) --> reviewed with Radiology. EF 61%, subtle inferior/basilar wall reversible defect - echocardiogram (07/04) --> EF 60-65% - metoprolol 25mg BID COPD/Chemical exposure hx in 08/2016 - PFT in 2016 with reported FEV1 of 0.51, 20% of predicted - Continue Symbicort BID and Combivent QID - Pt was given a dose of IV Solu-Medrol at admission - Prednisone 20mg alt with 10mg every other day -> (06/25) transitioned to Prednisone 10 mg daily - prednisone decreased to 5mg daily (07/04) - Duonebs to q6h while awake - Pt refused Budesonide Nebs BID - Supplemental O2 as needed - repeat CXR (06/24) hyperinflation without infiltrate. Small nodule RUL recommend outpatient follow up CT - CT chest without contrast (06/24) Areas of scarring in the lungs with COPD and scattered tiny nodules most likely benign, repeat noncontrast chest CT is suggested in 6 months as a conservative follow up Hyperglycemia - Pt likely with steroid induced hyperglycemia with her prolonged steroid use - Hgb A1C is 8.6% - She has been having some intermittent issues with hypoglycemia - NovoLog SSI Dc'd (06/22) - Accu checks ACHS (2) Edema of upper extremity ICD Codes: R60.0 - Localized edema Status: Acute Plan: - increased edema of RUE - obtain UE US to r/o DVT - elevate RUE - change lasix to 20mg IV BID (3) COPD (chronic obstructive pulmonary disease) ICD Codes: J44.9 - Chronic obstructive pulmonary disease, unspecified Status: Chronic (4) Hyperglycemia ICD Codes: R73.9 - Hyperglycemia, unspecified Status: Acute Problem Qualifiers (1) Open leg wound: Qualified Codes: S81.801A - Unspecified open wound, right lower leg, initial encounter Kin Parsons DO Jul 06, 2017 14:52
[2017-07-06] MEDS: FUROSEMIDE 20 MG/2 ML VIAL IV PUSH SCH (17:56)
[2017-07-06] MEDS: REMOVE OLD PATCH T-DERMAL SCH (21:00)
--- NOTE | 2017-07-06 22:11 | RADRPT ---
EXAM DATE/TIME: 07/06/2017 20:27 [place] COMPARISON: No previous studies available for comparison. INDICATIONS : Bilateral arm edema. MEDICAL HISTORY : Renal calculi. Afib. Palpitations. COPD. Asthma. Sputum production. Dyspena. Anxiety. SURGICAL HISTORY : Tonsillectomy.Appendectomy. Tubal ligation.Bowel obstruction-resection. Right breast lumpectomy. Chem otherapy. Radiation therapy. ENCOUNTER: Initial ACUITY: 1 day PAIN SCORE: 0/10 LOCATION: Bilateral arms. FINDINGS: RIGHT UPPER EXTREMITY: There is spontaneous flow documented in the brachial, basilic, cephalic, axillary, and subclavian vei ns. The vessels are compressible and augmentation response is documented. No filling defects are se en. The flow is phasic with respiration. Direction of flow in the jugular vein is caudal. LEFT UPPER EXTREMITY: There is spontaneous flow documented in the brachial, basilic, cephalic, axillary, and subclavian vei ns. The vessels are compressible and augmentation response is documented. No filling defects are se en. The flow is phasic with respiration. Direction of flow in the jugular vein is caudal. CONCLUSION: 1. Negative for deep venous thrombosis in the upper extremities. Right IJ line present. Kostas Rosado MD on July 06, 2017 at 22:09 Board Certified Radiologist. This report was verified electronically.
[2017-07-07] VITALS: BP 110/77; PULSE 54; RESP 18; TEMP 98.9; O2SAT 97
[2017-07-07] MEDS: traMADol HCL 50 MG TAB PO PRN ×3 (00:20→19:55)
[2017-07-07 04:00] VITALS: BP 131/69; PULSE 97; RESP 20; TEMP 98.3; O2SAT 95
[2017-07-07 07:28] LABS: BICARBONATE 30.9 MEQ/L (21.0-32.0); CALCIUM 8.1 MG/DL (8.5-10.1); CREATININE 1.18 MG/DL (0.50-1.00); MAGNESIUM 1.9 MG/DL (1.5-2.5)
[2017-07-07] MEDS: predniSONE 5 MG TAB PO SCH (07:55)
[2017-07-07] MEDS: FUROSEMIDE 20 MG/2 ML VIAL IV PUSH SCH (07:55)
[2017-07-07] MEDS: POTASSIUM CHLORIDE 25 MEQ EFFERVESCENT TAB PO SCH (07:55)
[2017-07-07] MEDS: DOCUSATE SODIUM 50 MG/SENNA 8.6 MG TAB PO SCH ×2 (07:55→19:59)
[2017-07-07] MEDS: METOPROLOL TARTRATE 25 MG TAB PO SCH ×2 (07:55→19:54)
[2017-07-07] MEDS: BUDESONIDE-FORMOTEROL 80/4.5 MCG INHALER INH SCH ×2 (07:56→20:00)
[2017-07-07 08:00] VITALS: BP 133/79; PULSE 104; RESP 18; TEMP 98.4; O2SAT 97
[2017-07-07 12:00] VITALS: BP 128/74; PULSE 131; RESP 18; TEMP 97.8; O2SAT 95
[2017-07-07] MEDS: ONDANSETRON HCL 4 MG/2 ML VIAL IV PUSH PRN (12:10)
[2017-07-07] MEDS: LORazepam 2 MG/ML VIAL IV PUSH PRN (12:38)
--- NOTE | 2017-07-07 15:23 | HHI.PR ---
Subjective Remarks Patient and RN report that the bedside dressing change did not go well today. Patient was in fact unable to tolerate wound vac change. Wound care placed a wet to dry dressing instead. Objective Vitals Vital Signs Date Time Temp Pulse Resp B/P (MAP) Pulse Ox O2 Delivery O2 Flow Rate FiO2 07/07/17 12:00 97.8 131 18 128/74 (92) 95 07/07/17 08:00 98.4 104 18 133/79 (97) 97 07/07/17 04:00 98.3 97 20 131/69 (89) 95 07/07/17 00:00 98.9 54 18 110/77 (88) 97 07/06/17 20:31 2.00 07/06/17 20:00 99.1 101 18 123/69 (87) 95 07/06/17 16:00 98.5 126 18 135/79 (97) 96 Result Diagram: 07/06/17 0909 07/07/17 0615 Other Results Laboratory Tests Test 07/06/17 09:09 07/06/17 11:34 07/07/17 06:15 White Blood Count 7.7 TH/MM3 Red Blood Count 2.75 MIL/MM3 Hemoglobin 8.4 GM/DL Hematocrit 24.6 % Mean Corpuscular Volume 89.5 FL Mean Corpuscular Hemoglobin 30.5 PG Mean Corpuscular Hemoglobin Concent 34.1 % Red Cell Distribution Width 15.2 % Platelet Count 322 TH/MM3 Mean Platelet Volume 6.7 FL Neutrophils (%) (Auto) 79.1 % Lymphocytes (%) (Auto) 10.7 % Monocytes (%) (Auto) 7.2 % Eosinophils (%) (Auto) 2.3 % Basophils (%) (Auto) 0.7 % Neutrophils # (Auto) 6.1 TH/MM3 Lymphocytes # (Auto) 0.8 TH/MM3 Monocytes # (Auto) 0.6 TH/MM3 Eosinophils # (Auto) 0.2 TH/MM3 Basophils # (Auto) 0.1 TH/MM3 CBC Comment AUTO DIFF Differential Total Cells Counted 100 Neutrophils % (Manual) 60 % Band Neutrophils % 20 % Lymphocytes % 9 % Monocytes % 7 % Eosinophils % 2 % Neutrophils # (Manual) 6.3 TH/MM3 Myelocytes 2 % Differential Comment FINAL DIFF MANUAL Platelet Estimate NORMAL Platelet Morphology Comment NORMAL Red Cell Morphology Comment NORMAL Blood Urea Nitrogen 9 MG/DL 11 MG/DL Creatinine 1.09 MG/DL 1.18 MG/DL Random Glucose 73 MG/DL 69 MG/DL Calcium Level 8.1 MG/DL 8.1 MG/DL Sodium Level 138 MEQ/L 137 MEQ/L Potassium Level 3.8 MEQ/L 3.4 MEQ/L Chloride Level 99 MEQ/L 97 MEQ/L Carbon Dioxide Level 31.5 MEQ/L 30.9 MEQ/L Anion Gap 8 MEQ/L 9 MEQ/L Estimat Glomerular Filtration Rate 50 ML/MIN 46 ML/MIN Magnesium Level 1.9 MG/DL Imaging Last Impressions Chest X-Ray 06/24/17 0800 Signed Impressions: Service Date/Time: Saturday, June 24, 2017 08:04 - CONCLUSION: 1. Hyperinflation without infiltrate. 2. Small nodule right upper lobe. Outpatient CT chest recommended. David Maya MD Chest CT 06/24/17 0000 Signed Impressions: Service Date/Time: Saturday, June 24, 2017 16:21 - CONCLUSION: Areas of scarring in the lungs with COPD and scattered tiny nodules most likely benign, repeat noncontrast chest CT is suggested in 6 months as a conservative follow up. Sujit Bunch MD Abdomen X-Ray 06/21/17 0000 Signed Impressions: Service Date/Time: Wednesday, June 21, 2017 18:55 - CONCLUSION: No acute disease. Joaquin Freed MD Tibia/Fibula X-Ray 06/13/17 0000 Signed Impressions: Service Date/Time: Tuesday, June 13, 2017 20:40 - CONCLUSION: 1. Ulceration at the lateral leg with soft tissue swelling. No bony abnormality. Kostas Rosado MD Objective Remarks GENERAL: This is a well-nourished, well-developed patient, in no apparent distress. SKIN: Patient has erythematous rash through out anterior and posterior truck as well as arms and upper legs. Patient has tenia in bilateral groin and gluteal cleft. Also skin breakdown on bilateral buttock CARDIOVASCULAR: Regular rate and rhythm RESPIRATORY: Clear to auscultation. Breath sounds equal bilaterally. GASTROINTESTINAL: Abdomen soft, non-tender, nondistended. Normal active bowel sounds MUSCULOSKELETAL: Extremities without clubbing, cyanosis, or edema. wet to dry dressing in place at [facility] NEURO: Alert & Oriented x4 to person, place, time, situation. Moves all ext x4 Procedures Pt underwent surgical debridement with wound vac placement on 06/15/[address] Clark - Pt underwent a vac change in OR on 06/17/17, 06/19, 06/21, 06/23, 06/26 - Pt has wound vac change at bedside on 06/30/17, 07/04/17 and recommended for continued wound vac changes on Tuesdays and Fridays A/P Problem List: (1) Open leg wound ICD Codes: S81.809A - Unspecified open wound, unspecified lower leg, initial encounter Status: Acute Plan: RLE nonhealing wound - Patient with large, necrotic open wound right lower extremity x 2 months. - Wound culture growing gram negative rods - Blood cultures with no growth - Pt has been started on Zosyn and Vancomycin - General Surgery is following - Pt underwent surgical debridement with wound vac placement on 06/15/[address] Clark - Pt underwent a vac change on 06/17/17, 06/19, 06/21, 06/23, 06/26 - Pt has wound vac change at bedside on 06/30/17 and recommended for continued wound vac changes on Tuesdays and Fridays - plan to DC once cleared by general surgery - Pt with B/L LE edema and weeping, improving. Cr increased following IV lasix, Cr spiked at 1.44 (06/18) - Pt now on PO lasix. Follow creatinine, labs increased slightly but BUN is stable. - Ensure BID as pt has had some loose stools - Pain control PRN - Constipation precautions, Vivian-Colace BID, MOM PRB, Dulcolax PRN - Monitor labs daily - Supportive care - SCD on non-surgical leg - Pt was painful with VAC change 07/04/17, ultram was NOT sufficient. Pt previously received IV dilaudid - will change dilaudid to PO & try PO dilaudid prior to next VAC change. Pt does NOT want hydrocodone. - wound VAC with PO dilaudid on 07/07/17 - discharge to SNF once pt is comfortable with bedside wound VAC change. - if pt able to tolerate wound VAC change 07/06/17, then will d/c to SNF - appreciate input from Palliative Medicine. - (07/07/17) Patient and RN report that the bedside dressing change did not go well today. Patient was in fact unable to tolerate wound vac change due to pain despite being premedicated with PO Dilaudid. Wound care placed a wet to dry dressing instead. - Dr. Parsons discussed with Dr. Clark who agrees with continuing wet to dry dressing changes - DC planning Patient is debilitated and weak recommend rehab for strengthening. Patient and refusing rehab placement. Patient and has hired a private duty MARKET ANALYST through [employer] and plans to take patient home with [facility]. - Dr. Parsons is requesting a family meeting tomorrow with patient and her tomorrow Tachycardia - Outpt 2D echo (04/03/17) --> Mild concentric LVH, Estimated EF 50%, Grade 1 diastolic dysfunction, Moderate mitral valve regurg, Mild tricuspid valve regurg, Normal estimated PA pressure, 32.7mmHg - Telemetry with noted sinus tachycardia - EKG in the ED noted sinus tachycardia - repeat EKG (06/23) --> sinus tachycardia, 109, with occasional PVC - continue Ultram PRN. add acetaminophen scheduled. Patient does not want stronger pain medication. She is fearful of sedation/side effects - place continuous telemetry for closer monitoring of HR and rhythm - suspect pain, anxiety, COPD, and prednisone are all contributing - Lexiscan requested per Dr. Parsons, Patient refusing -Pt has run Vt 07/02....cardiology consulted. echo ordered and ischemic w/up is considered. - Echocardiogram --> pending - Zulema (07/02) --> reviewed with Radiology. EF 61%, subtle inferior/basilar wall reversible defect - echocardiogram (07/04) --> EF 60-65% - metoprolol 25mg BID - will check TSH and free T4 in AM COPD/Chemical exposure hx in 08/2016 - PFT in 2017 with reported FEV1 of 0.51, 20% of predicted - Continue Symbicort BID and Combivent QID - Pt was given a dose of IV Solu-Medrol at admission - Prednisone 20mg alt with 10mg every other day -> (06/25) transitioned to Prednisone 10 mg daily - prednisone decreased to 5mg daily (07/04) - Duonebs to q6h while awake - Pt refused Budesonide Nebs BID - Supplemental O2 as needed - repeat CXR (06/24) hyperinflation without infiltrate. Small nodule RUL recommend outpatient follow up CT - CT chest without contrast (2/3) Areas of scarring in the lungs with COPD and scattered tiny nodules most likely benign, repeat noncontrast chest CT is suggested in 6 months as a conservative follow up Hyperglycemia - Pt likely with steroid induced hyperglycemia with her prolonged steroid use - Hgb A1C is 8.6% - She has been having some intermittent issues with hypoglycemia - NovoLog SSI Dc'd (06/22) - Accu checks ACHS (2) Edema of upper extremity ICD Codes: R60.0 - Localized edema Status: Acute Plan: - increased edema of RUE - obtain UE US to r/o DVT - elevate RUE - change lasix to 20mg IV BID (3) COPD (chronic obstructive pulmonary disease) ICD Codes: J44.9 - Chronic obstructive pulmonary disease, unspecified Status: Chronic (4) Hyperglycemia ICD Codes: R73.9 - Hyperglycemia, unspecified Status: Acute (5) Buttock wound ICD Codes: S31.809A - Unspecified open wound of unspecified buttock, initial encounter Plan: open skin breakdown buttock area antifungal/barrier cream to buttock area keep area clean and dry specialty bed to relieve pressure (6) Tinea ICD Codes: B35.9 - Dermatophytosis, unspecified Plan: bilateral groin and gluteal cleft nystatin to affected area (7) Rash ICD Codes: R21 - Rash and other nonspecific skin eruption Plan: drug eruption rash vs staph skin infection consult ID for further assistance reviewed medications no recently started medication which appear to be likely culprit Assessment and Plan Patient examined. Assessment and plan formulated with Radha Bansal PA-C. I agree with the above. Pt was quite painful with bedside wound VAC change today. Case d/w General Surgery, Dr. Knight. Will stop Wound VAC in favor of wet-to-dry dressing changes. Pt now with findings c/w tinea corporis/inguinalis at groin and folds of buttocks. Start nystatin powder. Some early skin breakdown over sacral region. Appreciate input from Wound Care. Specialty Bed ordered. Pt with generalized macular-papular rash involving most regions. Onset is last 12-24 hours. infection vs. drug eruption rash. No recent antibiotics. ?lasix Will stop lasix for now. appreciate input ID, Dr. Choi. blood culture & UA/Cx ordered observe. Problem Qualifiers (1) Open leg wound: Qualified Codes: S81.801A - Unspecified open wound, right lower leg, initial encounter Radha Bansal Jul 07, 2017 15:23 Kin Parsons DO Jul 08, 2017 00:04
--- NOTE | 2017-07-07 15:24 | PD.WCN.NOT ---
Wound Consult Description: RLE wound VAC dressing change Communicated with: SAY dick and Doctor Clark Recommendation: 1.Stop wound VAC. Cleanse wound to RLE with normal saline and apply oil emulsion gauze (adaptic) to wound bed and cover with ABD pads , secure with rolled gauze and tape. Change dressing daily 2.Cleansed buttock area with skin protectant wipes. Please apply antifungal cream mixed 50/ 50 with Calazime barrier cream BID and PRN and leave open to air. Additional Information: Patient was seen on for wound VAC dressing and for evaluation of new buttock wound around 1230 with sheet writer and [facility]. Patient was premedicated with Dilaudid oral pain medication approximately 30 minutes prior.Patient was turned to L side for wound assessment. Patient requested bed wilder at this time. Patient was given bed wilder and allowed raymon to void. Bedpan was removed and bordered gauze on buttocks was removed to reveal moisture related partial thickness skin loss and denuded skin. Patinet was placed in supine position for dressing change.During dressing removal patient noted with tachycardia and complaints of chest pressure. Vital signs were as follows: P 135 , BP 128/63, R 26, T97.6.SAY dick administered Ativan IV for anxiety.Patient is also noted with Rash to torso, BUE and LUE. Patient continued to tolerate dressing change poorly. Wound was cleansed with normal saline and applied oil emulsion gauze over facia in wound bed and covered with ABD pads secured with rolled gauze and tape. SAY dick notified attending physician. [employer] [facility] notified Doctor Eduardo surgery. Wound VAC is on hold received verbal order for new dressing change orders. Leonora Crespo [facility] Jul 07, 2017 15:24
[2017-07-07] MEDS ORDERED: PRED5TAB PO (15:25)
[2017-07-07] MEDS ORDERED: METO25TA3 PO (15:25)
[2017-07-07 16:00] VITALS: BP 122/76; PULSE 127; RESP 19; TEMP 97.8; O2SAT 93
--- NOTE | 2017-07-07 16:52 | PD.ID.CON ---
History of Present Illness Service ID Consult Requested By Dr Parsons Reason for Consult skin infection Primary Care Physician Paola Monzon MD Diagnoses: History of Present Illness 66 yo COPDer on high dose Prednisone presented with necrotising infection or R lower leg (polimicrobial mixed gram+/ gram-) sp debridements, VAC complited abx (zosyn - 06/13- and vancomycin 06/13 thru 06/23 ) all antibiotics were stopped and she is off abx x 2 weeks developped mildly pruritic macular -papular rash x 4 days on torso, upper exremeties, upper thighs O/w she is doing OK, remains afebrile and with stable vitals She is on 3.5 L of NC O2 Noted bandemia up to 20 % in the last few days She is still having VAC and co a lot of pain aw its use Review of Systems Except as stated in HPI: all other systems reviewed are Neg Past Family Social History Allergies: Coded Allergies: codeine (Verified Allergy, Severe, 06/13/17) morphine (Unverified Allergy, Severe, Anaphylaxis, 01/04/17) sulfamethoxazole (Verified Allergy, Severe, 06/13/17) trimethoprim (Verified Allergy, Severe, 06/13/17) Past Medical History COPD, asthma Long-term tobacco use History of bowel obstruction Questionable diabetes History of breast cancer Past Surgical History Right breast lumpectomy with subsequent radiation therapy 1995 Partial colon resection due to obstruction Active Ordered Medications Medications where reviewed in EMR Antibiotics Include: none Family History Father of coronary artery disease Mother at an old age but was a "hypochondriac. Social History She currently smokes 5-6 cigarettes per day but has smoked up to one pack per day in the past. She has smoked cigarettes for over 45 years. Denies any alcohol or illicit drug use Just got for the third time August 2016. Physical Exam Vital Signs Vital Signs Date Time Temp Pulse Resp B/P (MAP) Pulse Ox O2 Delivery O2 Flow Rate FiO2 07/07/17 16:00 97.8 127 19 122/76 (91) 93 07/07/17 12:00 97.8 131 18 128/74 (92) 95 07/07/17 08:00 98.4 104 18 133/79 (97) 97 07/07/17 04:00 98.3 97 20 131/69 (89) 95 07/07/17 00:00 98.9 54 18 110/77 (88) 97 07/06/17 20:31 2.00 07/06/17 20:00 99.1 101 18 123/69 (87) 95 Physical Exam CONSTITUTIONAL/GENERAL: This is an adequately nourished patient, in no apparent distress. TUBES/LINES/DRAINS: SKIN: No jaundice, Diffuse morbiliform macula papular rash on torso, BUE , abdomen lesions. Skin temperature appropriate. Not diaphoretic. + cyanosis mottling presente on BLE RLE - full thickness clean based partially granulated large ulceration very tender with minimal serosag drainage No necrotic tissue noted Promine t skin atrophy with paper thin skin noted HEAD: Atraumatic. Normocephalic. EYES: Pupils equal and round and reactive. Extraocular motions intact. No scleral icterus. No injection or drainage. Fundi not examined. ENT: Hearing grossly normal. Nose without bleeding or purulent drainage. Throat without visible erythema, exudates, masses, or lesions. NECK: Trachea midline. Supple, nontender. No palpable thyroid enlargement or nodularity. CARDIOVASCULAR: Regular rate and rhythm without murmurs, gallops, or rubs. No JVD. Peripheral pulses symmetric. RESPIRATORY/CHEST: Symmetric, unlabored respirations. B/l scattered end- expiratory wheezing to auscultation. Breath sounds equally diminished bilaterally. GASTROINTESTINAL: Abdomen soft, non-tender, nondistended. No hepato-splenomegaly , or palpable masses. No guarding. Bowel sounds present. GENITOURINARY: Without palpable bladder distension. MUSCULOSKELETAL: Extremities without clubbing, + b/l feet cyanosis, + mottling or edema. No joint tenderness or effusion noted. No calf tenderness. No mottling or clubbing. LYMPHATICS: No palpable cervical or supraclavicular adenopathy. NEUROLOGICAL: Awake and alert. Motor and sensory grossly within normal limits. Follows commands. Clear speech. Moves all extremities. PSYCHIATRIC: No obvious anxiety/depression. no apparent hallucinations or other psychotic thought process. Laboratory Laboratory Tests Test 07/07/17 06:15 Blood Urea Nitrogen 11 Creatinine 1.18 Random Glucose 69 Calcium Level 8.1 Magnesium Level 1.9 Sodium Level 137 Potassium Level 3.4 Chloride Level 97 Carbon Dioxide Level 30.9 Anion Gap 9 Estimat Glomerular Filtration Rate 46 Date/Time Source Procedure Growth Status 1/23/18 20:35 Blood Peripheral Aerobic Blood Culture - Final NO GROWTH IN 5 DAYS Complete 06/13/17 20:35 Blood Peripheral Anaerobic Blood Culture - Final NO GROWTH IN 5 DAYS Complete 06/13/17 20:00 Wound Leg Gram Stain - Final Complete 06/13/17 20:00 Wound Leg Wound Culture - Final Complete Result Diagram: 07/06/17 0909 07/07/17 0615 Imaging Last Impressions Upper Extremity Ultrasound 07/06/17 0000 Signed Impressions: Service Date/Time: June 20:27 - CONCLUSION: 1. Negative for deep venous thrombosis in the upper extremities. Right IJ line present. Kostas Rosado MD Myocardial Perfusion Scan Nuc Med 07/03/17 0000 Signed Impressions: Service Date/Time: Monday, July 03, 2017 13:26 - CONCLUSION: 1. Apical thinning versus old apical infarct. 2. No reversibility to suggest ischemia. 3. Adequate wall motion throughout with an estimated ejection fraction of 61%% RISK CATEGORY: Low (<1%% Annual Mortality Rate) Yamil Pozo MD Chest X-Ray 06/24/17 0800 Signed Impressions: Service Date/Time: Saturday, June 24, 2017 08:04 - CONCLUSION: 1. Hyperinflation without infiltrate. 2. Small nodule right upper lobe. Outpatient CT chest recommended. David Maya MD Chest CT 06/24/17 0000 Signed Impressions: Service Date/Time: Saturday, June 24, 2017 16:21 - CONCLUSION: Areas of scarring in the lungs with COPD and scattered tiny nodules most likely benign, repeat noncontrast chest CT is suggested in 6 months as a conservative follow up. Sujit Bunch MD Abdomen X-Ray 06/21/17 0000 Signed Impressions: Service Date/Time: Wednesday, June 21, 2017 18:55 - CONCLUSION: No acute disease. Joaquin Freed MD Tibia/Fibula X-Ray 06/13/17 0000 Signed Impressions: Service Date/Time: Tuesday, June 13, 2017 20:40 - CONCLUSION: 1. Ulceration at the lateral leg with soft tissue swelling. No bony abnormality. Kostas Rosado MD Assessment and Plan Assessment and Plan H/o bacterial infection of RLE - completed tx 2 weeks ago New rash: most likely allergic reaction to one of the medication Bandemia - will check blood clx - UA, C+S monitor CBC, bands CXR Discussed Condition With Dr Issa Choi,Michelle Arnold MD Jul 07, 2017 16:52
--- NOTE | 2017-07-07 17:55 | RADRPT ---
EXAM DATE/TIME: 07/07/2017 17:08 [facility] COMPARISON: CHEST SINGLE AP, June 23, 2017, 13:23. INDICATIONS : Shortness of breath. MEDICAL HISTORY : Chronic obstructive pulmonary disease. A-fib. Hx of breast cancer. SURGICAL HISTORY : Tonsillectomy. Appendectomy. Bowel resection. Right breast lumpectomy. ENCOUNTER: Subsequent ACUITY: 3 days PAIN SCORE: 0/10 LOCATION: chest FINDINGS: Central line in good position. Mild compensated cardiomegaly. Negative for pneumothorax or congesti ve failure. CONCLUSION: Mild compensated cardiomegaly. Gautam Sánchez MD FACR on July 07, 2017 at 17:53 Board Certified Radiologist. This report was verified electronically.
[2017-07-07] MEDS ORDERED: FUROSEMIDE 20 MG TAB PO SCH (18:00)
[2017-07-07] MEDS: REMOVE OLD PATCH T-DERMAL SCH (19:59)
[2017-07-07 20:00] VITALS: BP 91/59; PULSE 143; PULSE 92; RESP 20; TEMP 97.7; O2SAT 97
[2017-07-07] MEDS: NYSTATIN 100,000 U/GM PWD 15 GM BTL TOPICAL SCH (23:58)
[2017-07-08] VITALS (9 sets, daily range): BP systolic 97–124; BP diastolic 62–75; PULSE 86–122; RESP 15–22; TEMP 97.1–99.2; O2SAT 95–100
[2017-07-08] MEDS: NYSTATIN 100,000 U/GM PWD 15 GM BTL TOPICAL SCH ×3 (06:21→20:40)
[2017-07-08] MEDS: traMADol HCL 50 MG TAB PO PRN ×3 (06:24→18:57)
[2017-07-08] MEDS: LORazepam 2 MG/ML VIAL IV PUSH PRN (06:27)
[2017-07-08 06:30] LABS: AMORPHOUS SEDIMENT, URINE RARE; BACTERIA, URINE RARE /hpf; BLOOD, URINE SMALL (NEG); GLUCOSE,URINE NEG (NEG); HYALINE CAST, URINE 1 /lpf (RARE); KETONE, URINE NEG (NEG); MUCUS URINE FEW /lpf (OCC); NITRITE,URINE NEG (NEG); SQUAMOUS EPITHELIAL CELL URINE 10 /hpf (0-5); TRANSITIONAL EPI CELLS, URINE 3 /hpf; URINE COLOR YELLOW (YELLW/STRAW); URINE LEUKOCYTE ESTERASE LARGE (NEG)
[2017-07-08 06:34] LABS: BILIRUBIN, URINE NEG (NEG)
[2017-07-08 08:29] LABS: FREE T4 1.01 NG/DL (0.76-1.46)
[2017-07-08] MEDS: BUDESONIDE-FORMOTEROL 80/4.5 MCG INHALER INH SCH ×2 (09:00→20:39)
[2017-07-08] MEDS: METOPROLOL TARTRATE 25 MG TAB PO SCH ×2 (09:40→20:39)
[2017-07-08] MEDS: predniSONE 5 MG TAB PO SCH (09:40)
[2017-07-08] MEDS: POTASSIUM CHLORIDE 25 MEQ EFFERVESCENT TAB PO SCH (09:40)
[2017-07-08] MEDS: DOCUSATE SODIUM 50 MG/SENNA 8.6 MG TAB PO SCH ×2 (09:40→20:40)
[2017-07-08] MEDS ORDERED: IOHEXOL 350 MG/ML 10 ML VIAL (for RAD DIAG) IVCONTRAST ONE ×2 (12:04→22:00)
--- NOTE | 2017-07-08 12:44 | HHI.PR ---
Subjective Remarks No new complaints. Pt is more comfortable today. Objective Vitals Vital Signs Date Time Temp Pulse Resp B/P (MAP) Pulse Ox O2 Delivery O2 Flow Rate FiO2 07/08/17 12:00 97.7 122 17 103/62 (76) 95 07/08/17 08:00 Nasal Cannula 2.00 21 07/08/17 08:00 98.0 107 15 97/62 (74) 95 07/08/17 04:00 98.5 114 20 106/72 (83) 100 07/08/17 00:00 99.2 114 20 124/75 (91) 98 07/07/17 23:35 20 07/07/17 20:00 143 07/07/17 20:00 97.7 92 20 91/59 (70) 97 07/07/17 19:20 Nasal Cannula 2.00 07/07/17 16:00 97.8 127 19 122/76 (91) 93 07/08/17 07/08/17 07/09/17 15:00 23:00 07:00 # Voids 3 # Bowel Movements 1 Result Diagram: 07/06/17 0909 07/07/17 0615 Imaging Last Impressions Chest X-Ray 06/24/17 0800 Signed Impressions: Service Date/Time: Saturday, June 24, 2017 08:04 - CONCLUSION: 1. Hyperinflation without infiltrate. 2. Small nodule right upper lobe. Outpatient CT chest recommended. David Maya MD Chest CT 06/24/17 0000 Signed Impressions: Service Date/Time: Saturday, June 24, 2017 16:21 - CONCLUSION: Areas of scarring in the lungs with COPD and scattered tiny nodules most likely benign, repeat noncontrast chest CT is suggested in 6 months as a conservative follow up. Sujit Bunch MD Abdomen X-Ray 06/21/17 0000 Signed Impressions: Service Date/Time: Wednesday, June 21, 2017 18:55 - CONCLUSION: No acute disease. Joaquin Freed MD Tibia/Fibula X-Ray 06/13/17 0000 Signed Impressions: Service Date/Time: Tuesday, June 13, 2017 20:40 - CONCLUSION: 1. Ulceration at the lateral leg with soft tissue swelling. No bony abnormality. Kostas Rosado MD Objective Remarks GENERAL: This is a well-nourished, well-developed patient, in no apparent distress. SKIN: Patient has erythematous rash through out anterior and posterior truck as well as arms and upper legs. Patient has tenia in bilateral groin and gluteal cleft. Also skin breakdown on bilateral buttock CARDIOVASCULAR: Regular rate and rhythm RESPIRATORY: Clear to auscultation. Breath sounds equal bilaterally. GASTROINTESTINAL: Abdomen soft, non-tender, nondistended. Normal active bowel sounds MUSCULOSKELETAL: Extremities without clubbing, cyanosis, or edema. wet to dry dressing in place at RLE NEURO: Alert & Oriented x4 to person, place, time, situation. Moves all ext x4 Procedures Pt underwent surgical debridement with wound vac placement on 06/15/[address] Clark - Pt underwent a vac change in OR on 06/17/17, 06/19, 06/21, 06/23, 06/26 - Pt has wound vac change at bedside on 06/30/17, 07/04/17 and recommended for continued wound vac changes on Tuesdays and Fridays A/P Problem List: (1) Rash ICD Codes: R21 - Rash and other nonspecific skin eruption Plan: - appreciate input from ID, Dr. Choi - rash improving 07/08, less red. - Unlikely to be infectious - drug allergy rash? Unclear which medication might be the trigger - lasix stopped 07/07 - supportive care (2) Open leg wound ICD Codes: S81.809A - Unspecified open wound, unspecified lower leg, initial encounter Status: Acute Plan: [facility] nonhealing wound - Patient with large, necrotic open wound right lower extremity x 2 months. - Wound culture growing gram negative rods - Blood cultures with no growth - Pt has been started on Zosyn and Vancomycin - General Surgery is following - Pt underwent surgical debridement with wound vac placement on 06/15/[address] Clark - Pt underwent a vac change on 06/17/17, 06/19, 06/21, 06/23, 06/26 - wound VAC with PO dilaudid on 07/07/17 - Pt was very painful with bedside wound VAC change 07/07 despite PO dialudid - Case d/w General Surgery, Dr. Knight (07/07). Dressing changed to wet-to -dry - Anticipate discharge to SNF 07/10 or 07/11 - obtain CTA with runoff to evaluate LE vascular status - Pt with B/L LE edema and weeping, improving. Cr increased following IV lasix, Cr spiked at 1.44 (06/18) - PO lasix stopped 07/08, contributing to rash? Will observe. Pt may need to have diuretic resumed. - Pain control PRN - Constipation precautions, Vivian-Colace BID, MOM PRB, Dulcolax PRN - Supportive care - SCD on non-surgical leg Tachycardia - Outpt 2D echo (04/03/17) --> Mild concentric LVH, Estimated EF 50%, Grade 1 diastolic dysfunction, Moderate mitral valve regurg, Mild tricuspid valve regurg, Normal estimated PA pressure, 32.7mmHg - Telemetry with noted sinus tachycardia - EKG in the ED noted sinus tachycardia - repeat EKG (06/23) --> sinus tachycardia, 109, with occasional PVC - continue Ultram PRN. add acetaminophen scheduled. Patient does not want stronger pain medication. She is fearful of sedation/side effects - place continuous telemetry for closer monitoring of HR and rhythm - suspect pain, anxiety, COPD, and prednisone are all contributing - Lexiscan requested per Dr. Parsons, Patient refusing -Pt has run Vt 07/02....cardiology consulted. echo ordered and ischemic w/up is considered. - Zulema (07/02) --> reviewed with Radiology. EF 61%, subtle inferior/basilar wall reversible defect - echocardiogram (07/04) --> EF 60-65% - metoprolol 25mg BID COPD/Chemical exposure hx in 08/2016 - PFT in 2016 with reported FEV1 of 0.51, 20% of predicted - Continue Symbicort BID and Combivent QID - Pt was given a dose of IV Solu-Medrol at admission - Prednisone 20mg alt with 10mg every other day -> (06/25) transitioned to Prednisone 10 mg daily - prednisone decreased to 5mg daily (07/04) - Duonebs to q6h while awake - Pt refused Budesonide Nebs BID - Supplemental O2 as needed - repeat CXR (06/24) hyperinflation without infiltrate. Small nodule RUL recommend outpatient follow up CT - CT chest without contrast (06/24) Areas of scarring in the lungs with COPD and scattered tiny nodules most likely benign, repeat noncontrast chest CT is suggested in 6 months as a conservative follow up Hyperglycemia - Pt likely with steroid induced hyperglycemia with her prolonged steroid use - Hgb A1C is 8.6% - She has been having some intermittent issues with hypoglycemia - NovoLog SSI Dc'd (06/22) - Accu checks ACHS (3) Edema of upper extremity ICD Codes: R60.0 - Localized edema Status: Acute Plan: - increased edema of RUE - obtain UE US to r/o DVT - elevate RUE - see above (4) COPD (chronic obstructive pulmonary disease) ICD Codes: J44.9 - Chronic obstructive pulmonary disease, unspecified Status: Chronic (5) Hyperglycemia ICD Codes: R73.9 - Hyperglycemia, unspecified Status: Chronic (6) Tinea ICD Codes: B35.9 - Dermatophytosis, unspecified Plan: bilateral groin and gluteal cleft nystatin to affected area (7) Buttock wound ICD Codes: S31.809A - Unspecified open wound of unspecified buttock, initial encounter Plan: open skin breakdown buttock area antifungal/barrier cream to buttock area keep area clean and dry specialty bed to relieve pressure Problem Qualifiers (1) Open leg wound: Qualified Codes: S81.801A - Unspecified open wound, right lower leg, initial encounter Kin Parsons DO Jul 08, 2017 12:44
[2017-07-08] MEDS: ALPRAZolam 0.25 MG TAB PO PRN (12:57)
[2017-07-08 14:28] LABS: AUTOMATED NEUTROPHIL # 13.9 TH/MM3 (1.8-7.7); BASOPHIL # 0.1 TH/MM3 (0-0.2); BASOPHIL % 0.5 % (0.0-2.0); EOSINOPHIL # 0.2 TH/MM3 (0-0.4); HEMOGLOBIN 8.8 GM/DL (11.6-15.3); LYMPH % 4.6 % (9.0-44.0); LYMPHOCYTE # 0.7 TH/MM3 (1.0-4.8); MEAN CELL VOLUME 88.6 FL (80.0-100.0); MEAN CORPUSCULAR HEMOGLOBIN 30.1 PG (27.0-34.0); MEAN CORPUSCULAR HGB CONC 33.9 % (32.0-36.0); MONOCYTE # 0.8 TH/MM3 (0-0.9); NEUT % 88.9 % (16.0-70.0); PLATELET COUNT 363 TH/MM3 (150-450); RED BLOOD COUNT 2.93 MIL/MM3 (4.00-5.30); RED CELL DISTRIBUTION WIDTH 15.3 % (11.6-17.2); WHITE BLOOD COUNT 15.6 TH/MM3 (4.0-11.0)
[2017-07-08 15:21] LABS: BANDS 4 % (0-6); LYMPHOCYTES 1 % (9-44); METAMYELOCYTES 1 % (0-1); NEUTROPHIL # MANUAL DIFF 15.4 TH/MM3 (1.8-7.7); POLYS (SEG NEUTROPHILS) 94 % (16-70)
[2017-07-08] MEDS: REMOVE OLD PATCH T-DERMAL SCH (20:39)
--- NOTE | 2017-07-08 22:41 | RADRPT ---
EXAM DATE/TIME: 07/08/2017 21:18 [facility] COMPARISON: No previous studies available for comparison. INDICATIONS : Necrosis right lower leg. IV CONTRAST: 97 cc Omnipaque 350 (iohexol) IV RADIATION DOSE: 3.02 CTDIvol (mGy) MEDICAL HISTORY : Cardiovascular disease. Chronic obstructive pulmonary disease. SURGICAL HISTORY : Tubal ligation. ENCOUNTER: Initial ACUITY: 1 week PAIN SCALE: 6/10 LOCATION: Right leg TECHNIQUE: Volumetric scanning was performed using a multi-row detector CT scanner. The data was post processed with a variety of visualization algorithms including full volume maximum intensity projection, multi -planar sliding thin slab reformation, curved planar reformation, and surface rendering techniques. Using automated exposure control and adjustment of the mA and/or kV according to patient size, radiat ion dose was kept as low as reasonably achievable to obtain optimal diagnostic quality images. DICO M format image data is available electronically for review and comparison. FINDINGS: ABDOMINAL AORTA: The abdominal aorta is ectatic with atherosclerotic change. The celiac trunk, superior mesenteric art clayton, and inferior mesenteric artery are patent. There are patent single renal arteries bilaterally. RIGHT PELVIS: The right common iliac artery demonstrates moderate atherosclerotic calcification. There is mild athe rosclerotic calcification within the internal iliac artery. External artery demonstrates no significa nt stenosis. No aneurysm is present. LEFT PELVIS: There is moderate atherosclerotic disease of the common iliac artery without high-grade stenosis. Mil d to moderate atherosclerotic disease is present within the internal iliac artery. External iliac art clayton demonstrates no significant atherosclerotic change or stenosis. No aneurysm is present. RIGHT THIGH: There is mild to moderate atherosclerotic calcification of the common femoral artery. Profunda femori s is patent. There is minimal atherosclerotic change of the superficial femoral artery and popliteal artery. LEFT THIGH: There is mild to moderate atherosclerotic calcification of the common femoral artery. Profunda femori s is within normal limits. The superficial femoral artery demonstrates minimal atherosclerotic diseas e. RIGHT KNEE: Popliteal artery demonstrates no significant stenosis. LEFT KNEE: The popliteal artery demonstrates no significant stenosis or atherosclerotic change. RIGHT LEG: There is a normal trifurcation. The posterior tibial artery is only visualized to the mid calf but th e peroneal and anterior tibial arteries extend to the ankle. LEFT LEG: Trifurcation is visualized. The posterior tibial artery is only visualized to the midcalf. Opacificat ion in the peroneal artery extends to the ankle. Nonvascular structures demonstrate no acute finding. There is mild sigmoid diverticulosis. CONCLUSION: 1. Moderate to severe atherosclerotic disease of aorta without aneurysm. Blood flow in both lower ext remities is maintained with good perfusion appreciated to the distal legs bilaterally. No high-grade stenosis or occlusion is visualized. 2. The nonvascular structures visualized demonstrate no acute finding. Pollo Mccabe MD on July 08, 2017 at 22:31 Board Certified Radiologist. This report was verified electronically.
[2017-07-09] VITALS (8 sets, daily range): BP systolic 100–123; BP diastolic 63–77; PULSE 98–119; RESP 16–20; TEMP 96.6–97.3; O2SAT 94–98
[2017-07-09] MEDS: NYSTATIN 100,000 U/GM PWD 15 GM BTL TOPICAL SCH ×3 (05:21→20:04)
[2017-07-09] MEDS: BUDESONIDE-FORMOTEROL 80/4.5 MCG INHALER INH SCH ×2 (09:00→20:04)
[2017-07-09] MEDS: DOCUSATE SODIUM 50 MG/SENNA 8.6 MG TAB PO SCH ×2 (09:00→20:05)
[2017-07-09] MEDS: METOPROLOL TARTRATE 25 MG TAB PO SCH ×2 (09:46→20:05)
[2017-07-09] MEDS: predniSONE 5 MG TAB PO SCH (09:46)
[2017-07-09] MEDS: POTASSIUM CHLORIDE 25 MEQ EFFERVESCENT TAB PO SCH (09:46)
[2017-07-09] MEDS: traMADol HCL 50 MG TAB PO PRN ×2 (09:46→16:12)
[2017-07-09 09:47] LABS: AUTOMATED NEUTROPHIL # 14.9 TH/MM3 (1.8-7.7); BASOPHIL # 0.1 TH/MM3 (0-0.2); BASOPHIL % 0.8 % (0.0-2.0); EOSINOPHIL # 0.4 TH/MM3 (0-0.4); EOSINOPHIL % 2.1 % (0.0-4.0); HEMATOCRIT 28.3 % (35.0-46.0); HEMOGLOBIN 9.1 GM/DL (11.6-15.3); LYMPH % 6.9 % (9.0-44.0); LYMPHOCYTE # 1.2 TH/MM3 (1.0-4.8); MEAN CELL VOLUME 88.7 FL (80.0-100.0); MEAN CORPUSCULAR HEMOGLOBIN 28.5 PG (27.0-34.0); MEAN CORPUSCULAR HGB CONC 32.2 % (32.0-36.0); MEAN PLATELET VOLUME 7.2 FL (7.0-11.0); MONO % 5.1 % (0.0-8.0); MONOCYTE # 0.9 TH/MM3 (0-0.9); NEUT % 85.1 % (16.0-70.0); PLATELET COUNT 401 TH/MM3 (150-450); RED BLOOD COUNT 3.19 MIL/MM3 (4.00-5.30); RED CELL DISTRIBUTION WIDTH 15.3 % (11.6-17.2); WHITE BLOOD COUNT 17.5 TH/MM3 (4.0-11.0)
[2017-07-09 10:19] LABS: BICARBONATE 31.5 MEQ/L (21.0-32.0); CALCIUM 8.8 MG/DL (8.5-10.1); CREATININE 1.6 MG/DL (0.50-1.00)
--- NOTE | 2017-07-09 11:28 | HHI.PR ---
Subjective Remarks Patient seen with at bedside Offers no new complains rash improving Objective Vitals Vital Signs Date Time Temp Pulse Resp B/P (MAP) Pulse Ox O2 Delivery O2 Flow Rate FiO2 07/09/17 08:00 97.3 119 16 117/64 (81) 95 07/09/17 04:00 108 07/09/17 03:45 96.6 114 20 123/66 (85) 95 07/09/17 00:00 96.8 110 20 100/63 (75) 98 07/08/17 22:52 99 Nasal Cannula 2.00 07/08/17 21:00 Nasal Cannula 2.00 07/08/17 20:00 97.1 86 22 106/68 (81) 99 07/08/17 19:30 115 07/08/17 16:00 97.2 101 16 105/68 (80) 95 07/08/17 13:30 95 Nasal Cannula 2.00 07/08/17 12:00 97.7 122 17 103/62 (76) 95 Result Diagram: 07/09/17 0840 07/09/17 0840 Other Results Laboratory Tests Test 07/06/17 11:34 07/07/17 06:15 07/08/17 06:00 07/08/17 06:27 Blood Urea Nitrogen 9 MG/DL 11 MG/DL Creatinine 1.09 MG/DL 1.18 MG/DL Random Glucose 73 MG/DL 69 MG/DL Calcium Level 8.1 MG/DL 8.1 MG/DL Sodium Level 138 MEQ/L 137 MEQ/L Potassium Level 3.8 MEQ/L 3.4 MEQ/L Chloride Level 99 MEQ/L 97 MEQ/L Carbon Dioxide Level 31.5 MEQ/L 30.9 MEQ/L Anion Gap 8 MEQ/L 9 MEQ/L Estimat Glomerular Filtration Rate 50 ML/MIN 46 ML/MIN Magnesium Level 1.9 MG/DL Urine Color YELLOW Urine Turbidity HAZY Urine pH 5.0 Urine Specific [place] 1.019 Urine Protein 30 mg/dL Urine Glucose (UA) NEG mg/dL Urine Ketones NEG mg/dL Urine Occult Blood SMALL Urine Nitrite NEG Urine Bilirubin NEG Urine Urobilinogen 2.0 MG/DL Urine Leukocyte Esterase LARGE Urine RBC 6 /hpf Urine WBC 14 /hpf Urine Squamous Epithelial Cells 10 /hpf Urine Transitional Epithelial Cells 3 /hpf Urine Amorphous Sediment RARE Urine Bacteria RARE /hpf Urine Hyaline Casts 1 /lpf Urine Mucus FEW /lpf Microscopic Urinalysis Comment CULTURE INDICATED Free Thyroxine 1.01 NG/DL Thyroid Stimulating Hormone 3rd Gen 3.290 uIU/ML Test 07/08/17 10:02 07/09/17 08:40 White Blood Count 15.6 TH/MM3 17.5 TH/MM3 Red Blood Count 2.93 MIL/MM3 3.19 MIL/MM3 Hemoglobin 8.8 GM/DL 9.1 GM/DL Hematocrit 26.0 % 28.3 % Mean Corpuscular Volume 88.6 FL 88.7 FL Mean Corpuscular Hemoglobin 30.1 PG 28.5 PG Mean Corpuscular Hemoglobin Concent 33.9 % 32.2 % Red Cell Distribution Width 15.3 % 15.3 % Platelet Count 363 TH/MM3 401 TH/MM3 Mean Platelet Volume 7.0 FL 7.2 FL Neutrophils (%) (Auto) 88.9 % 85.1 % Lymphocytes (%) (Auto) 4.6 % 6.9 % Monocytes (%) (Auto) 5.0 % 5.1 % Eosinophils (%) (Auto) 1.0 % 2.1 % Basophils (%) (Auto) 0.5 % 0.8 % Neutrophils # (Auto) 13.9 TH/MM3 14.9 TH/MM3 Lymphocytes # (Auto) 0.7 TH/MM3 1.2 TH/MM3 Monocytes # (Auto) 0.8 TH/MM3 0.9 TH/MM3 Eosinophils # (Auto) 0.2 TH/MM3 0.4 TH/MM3 Basophils # (Auto) 0.1 TH/MM3 0.1 TH/MM3 CBC Comment AUTO DIFF AUTO DIFF Differential Total Cells Counted 100 Neutrophils % (Manual) 94 % Band Neutrophils % 4 % Lymphocytes % 1 % Neutrophils # (Manual) 15.4 TH/MM3 Metamyelocytes 1 % Differential Comment FINAL DIFF MANUAL Hematology Comments Blood Urea Nitrogen 19 MG/DL Creatinine 1.60 MG/DL Random Glucose 52 MG/DL Calcium Level 8.8 MG/DL Sodium Level 136 MEQ/L Potassium Level 4.1 MEQ/L Chloride Level 95 MEQ/L Carbon Dioxide Level 31.5 MEQ/L Anion Gap 10 MEQ/L Estimat Glomerular Filtration Rate 32 ML/MIN Imaging Last Impressions Chest X-Ray 06/24/17 0800 Signed Impressions: Service Date/Time: Saturday, June 24, 2017 08:04 - CONCLUSION: 1. Hyperinflation without infiltrate. 2. Small nodule right upper lobe. Outpatient CT chest recommended. David Maya MD Chest CT 06/24/17 0000 Signed Impressions: Service Date/Time: Saturday, June 24, 2017 16:21 - CONCLUSION: Areas of scarring in the lungs with COPD and scattered tiny nodules most likely benign, repeat noncontrast chest CT is suggested in 6 months as a conservative follow up. Suijt Bunch MD Abdomen X-Ray 06/21/17 0000 Signed Impressions: Service Date/Time: Wednesday, June 21, 2017 18:55 - CONCLUSION: No acute disease. Joaquin Freed MD Tibia/Fibula X-Ray 06/13/17 0000 Signed Impressions: Service Date/Time: Tuesday, June 13, 2017 20:40 - CONCLUSION: 1. Ulceration at the lateral leg with soft tissue swelling. No bony abnormality. Kostas Rosado MD Objective Remarks GENERAL: This is a well-nourished, well-developed patient, in no apparent distress. SKIN: Patient has erythematous rash through out anterior and posterior truck as well as arms and upper legs- less reddened today. Patient has tenia in bilateral groin and gluteal cleft. Also skin breakdown on bilateral buttock CARDIOVASCULAR: Regular rate and rhythm RESPIRATORY: Clear to auscultation. Breath sounds equal bilaterally. GASTROINTESTINAL: Abdomen soft, non-tender, nondistended. Normal active bowel sounds MUSCULOSKELETAL: Extremities without clubbing, cyanosis, or edema. wet to dry dressing in place at E NEURO: Alert & Oriented x4 to person, place, time, situation. Moves all ext x4 Procedures Pt underwent surgical debridement with wound vac placement on 06/15/[address] Clark - Pt underwent a vac change in OR on 06/17/17, 06/19, 06/21, 06/23, 06/26 - Pt has wound vac change at bedside on 06/30/17, 07/04/17 and recommended for continued wound vac changes on Tuesdays and Fridays A/P Problem List: (1) Rash ICD Codes: R21 - Rash and other nonspecific skin eruption Plan: - appreciate input from ID, Dr. Choi - rash improving 07/08, less red. - Unlikely to be infectious - drug allergy rash? Unclear which medication might be the trigger - lasix stopped 07/07 - rash less reddened today - supportive care (2) Open leg wound ICD Codes: S81.809A - Unspecified open wound, unspecified lower leg, initial encounter Status: Acute Plan: RLE nonhealing wound - Patient with large, necrotic open wound right lower extremity x 2 months. - Wound culture growing gram negative rods - Blood cultures with no growth - Pt has been started on Zosyn and Vancomycin - General Surgery is following - Pt underwent surgical debridement with wound vac placement on 06/15/[address] Clark - Pt underwent a vac change on 06/17/17, 06/19, 06/21, 06/23, 06/26 - wound VAC with PO dilaudid on 07/07/17 - Pt was very painful with bedside wound VAC change 07/07 despite PO dialudid - Case d/w General Surgery, Dr. Knight (07/07). Dressing changed to wet-to -dry - Anticipate discharge to SNF 07/10 or 07/11 - obtain CTA with runoff to evaluate LE (07/08) Moderate to severe atherosclerotic disease of aorta without aneurysm. Blood flow in both lower extremities is maintained with good perfusion appreciated to the distal legs bilaterally. No high-grade stenosis or occlusion is visualized. The nonvascular structures visualized demonstrate no acute finding. - Pt with B/L LE edema and weeping, improving. - PO lasix stopped 07/08, contributing to rash? Will observe. Pt may need to have diuretic resumed. - Patient creatinine increased to 1.6 (07/09) patient did have contrast study 07/08. Recheck in AM - Pain control PRN - Constipation precautions, Vivian-Colace BID, MOM PRB, Dulcolax PRN - Supportive care - SCD on non-surgical leg Tachycardia - Outpt 2D echo (04/03/17) --> Mild concentric LVH, Estimated EF 50%, Grade 1 diastolic dysfunction, Moderate mitral valve regurg, Mild tricuspid valve regurg, Normal estimated PA pressure, 32.7mmHg - Telemetry with noted sinus tachycardia - EKG in the ED noted sinus tachycardia - repeat EKG (06/23) --> sinus tachycardia, 109, with occasional PVC - continue Ultram PRN. add acetaminophen scheduled. Patient does not want stronger pain medication. She is fearful of sedation/side effects - place continuous telemetry for closer monitoring of HR and rhythm - suspect pain, anxiety, COPD, and prednisone are all contributing - Lexiscan requested per Dr. Parsons, Patient refusing -Pt has run Vt 07/02....cardiology consulted. echo ordered and ischemic w/up is considered. - Zulema (07/02) --> reviewed with Radiology. EF 61%, subtle inferior/basilar wall reversible defect - echocardiogram (07/04) --> EF 60-65% - metoprolol 25mg BID COPD/Chemical exposure hx in 08/2016 - PFT in 2016 with reported FEV1 of 0.51, 20% of predicted - Continue Symbicort BID and Combivent QID - Pt was given a dose of IV Solu-Medrol at admission - Prednisone 20mg alt with 10mg every other day -> (06/25) transitioned to Prednisone 10 mg daily - prednisone decreased to 5mg daily (07/04) - Duonebs to q6h while awake - Pt refused Budesonide Nebs BID - Supplemental O2 as needed - repeat CXR (06/24) hyperinflation without infiltrate. Small nodule RUL recommend outpatient follow up CT - CT chest without contrast (06/24) Areas of scarring in the lungs with COPD and scattered tiny nodules most likely benign, repeat noncontrast chest CT is suggested in 6 months as a conservative follow up Hyperglycemia - Pt likely with steroid induced hyperglycemia with her prolonged steroid use - Hgb A1C is 8.6% - She has been having some intermittent issues with hypoglycemia - NovoLog SSI Dc'd (06/22) - Accu checks ACHS Decreased appetite Remeron 30 mg PO QHS started Multivitamin started (3) Edema of upper extremity ICD Codes: R60.0 - Localized edema Status: Acute Plan: - increased edema of RUE - obtain UE US to r/o DVT - elevate RUE - see above (4) COPD (chronic obstructive pulmonary disease) ICD Codes: J44.9 - Chronic obstructive pulmonary disease, unspecified Status: Chronic (5) Hyperglycemia ICD Codes: R73.9 - Hyperglycemia, unspecified Status: Chronic (6) Tinea ICD Codes: B35.9 - Dermatophytosis, unspecified Plan: bilateral groin and gluteal cleft nystatin to affected area (7) Buttock wound ICD Codes: S31.809A - Unspecified open wound of unspecified buttock, initial encounter Plan: open skin breakdown buttock area antifungal/barrier cream to buttock area keep area clean and dry specialty bed to relieve pressure Assessment and Plan Patient examined. Assessment and plan formulated with Radha Bansal PA-C. I agree with the above. Problem Qualifiers (1) Open leg wound: Qualified Codes: S81.801A - Unspecified open wound, right lower leg, initial encounter Radha Bansal Jul 09, 2017 11:28 Kin Parsons DO Jul 10, 2017 01:34
[2017-07-09 11:35] LABS: BANDS 26 % (0-6); BASOPHILS 1 % (0-2); LYMPHOCYTES 6 % (9-44); MONOCYTES 6 % (0-8); NEUTROPHIL # MANUAL DIFF 14.9 TH/MM3 (1.8-7.7); POLYS (SEG NEUTROPHILS) 59 % (16-70)
[2017-07-09] MEDS: MULTIVITAMIN TAB PO SCH (13:26)
[2017-07-09] MEDS: ALPRAZolam 0.25 MG TAB PO PRN (13:26)
[2017-07-09] MEDS: ONDANSETRON HCL 4 MG/2 ML VIAL IV PUSH PRN (16:12)
[2017-07-09] MEDS: REMOVE OLD PATCH T-DERMAL SCH (20:04)
[2017-07-09] MEDS: MIRTAZAPINE 15 MG TAB PO SCH (20:05)
[2017-07-10] VITALS (8 sets, daily range): BP systolic 105–142; BP diastolic 67–82; PULSE 66–130; RESP 19–20; TEMP 96.7–97.6; O2SAT 95–100
[2017-07-10] MEDS: NYSTATIN 100,000 U/GM PWD 15 GM BTL TOPICAL SCH ×3 (05:08→21:34)
[2017-07-10] MEDS: DOCUSATE SODIUM 50 MG/SENNA 8.6 MG TAB PO SCH ×2 (09:00→21:33)
[2017-07-10] MEDS: POTASSIUM CHLORIDE 25 MEQ EFFERVESCENT TAB PO SCH (09:27)
[2017-07-10] MEDS: METOPROLOL TARTRATE 25 MG TAB PO SCH ×2 (09:27→21:32)
[2017-07-10] MEDS: MULTIVITAMIN TAB PO SCH (09:27)
[2017-07-10] MEDS: predniSONE 5 MG TAB PO SCH (09:27)
[2017-07-10] MEDS: BUDESONIDE-FORMOTEROL 80/4.5 MCG INHALER INH SCH ×2 (09:28→21:33)
[2017-07-10 10:28] LABS: CHOLESTEROL/ HDL RATIO 3.36 RATIO; HDL CHOLESTEROL 42.2 MG/DL (40.0-60.0)
[2017-07-10] MEDS: cefTRIAXone INJ 1,000 MG in SODIUM CHLORIDE 0.9% INJ 100 ML IV SCH (12:03)
[2017-07-10] MEDS ORDERED: CIPR-9 PO (12:28)
[2017-07-10 12:50] LABS: AUTOMATED NEUTROPHIL # 13.6 TH/MM3 (1.8-7.7); BASOPHIL # 0.1 TH/MM3 (0-0.2); BASOPHIL % 0.5 % (0.0-2.0); EOSINOPHIL # 0.2 TH/MM3 (0-0.4); EOSINOPHIL % 1.5 % (0.0-4.0); HEMATOCRIT 29.5 % (35.0-46.0); HEMOGLOBIN 9.8 GM/DL (11.6-15.3); LYMPH % 6.7 % (9.0-44.0); LYMPHOCYTE # 1.1 TH/MM3 (1.0-4.8); MEAN CORPUSCULAR HEMOGLOBIN 29.7 PG (27.0-34.0); MEAN CORPUSCULAR HGB CONC 33.4 % (32.0-36.0); MEAN PLATELET VOLUME 7.1 FL (7.0-11.0); MONO % 5.9 % (0.0-8.0); MONOCYTE # 0.9 TH/MM3 (0-0.9); NEUT % 85.4 % (16.0-70.0); PLATELET COUNT 409 TH/MM3 (150-450); RED BLOOD COUNT 3.31 MIL/MM3 (4.00-5.30); RED CELL DISTRIBUTION WIDTH 15.5 % (11.6-17.2); WHITE BLOOD COUNT 15.9 TH/MM3 (4.0-11.0)
[2017-07-10 12:56] LABS: BICARBONATE 29.6 MEQ/L (21.0-32.0); CALCIUM 8.9 MG/DL (8.5-10.1); CREATININE 2.22 MG/DL (0.50-1.00)
[2017-07-10 13:28] LABS: BANDS 13 % (0-6); BASOPHILS 1 % (0-2); LYMPHOCYTES 6 % (9-44); METAMYELOCYTES 1 % (0-1); MONOCYTES 8 % (0-8); NEUTROPHIL # MANUAL DIFF 13.4 TH/MM3 (1.8-7.7); POLYS (SEG NEUTROPHILS) 70 % (16-70); TOXIC GRANULATION 1+ (NORMAL)
--- NOTE | 2017-07-10 15:05 | HHI.IDPN ---
Subjective Subjective Remarks co persistent rash urine clx + + leukocytosis no fever Antibiotics CFTX Allergies: Coded Allergies: codeine (Verified Allergy, Severe, 06/13/17) morphine (Unverified Allergy, Severe, Anaphylaxis, 01/04/17) sulfamethoxazole (Verified Allergy, Severe, 06/13/17) trimethoprim (Verified Allergy, Severe, 06/13/17) Objective . Vital Signs Date Time Temp Pulse Resp B/P (MAP) Pulse Ox O2 Delivery O2 Flow Rate FiO2 07/10/17 12:00 96.9 125 19 142/68 (92) 95 07/10/17 10:23 Nasal Cannula 2.00 Humidified 07/10/17 08:00 97.4 123 19 123/71 (88) 96 07/10/17 04:01 96.9 119 20 105/69 (81) 95 07/10/17 00:00 97.1 119 20 123/67 (85) 98 07/10/17 00:00 123 07/09/17 20:09 Nasal Cannula 2.00 07/09/17 20:00 97.3 112 20 113/68 (83) 98 07/09/17 16:00 96.8 98 18 119/77 (91) 94 07/10/17 07/10/17 07/11/17 15:00 23:00 07:00 Intake Total 240 ml Balance 240 ml Intake Oral 240 ml . Laboratory Tests Test 07/09/17 08:40 07/10/17 11:41 White Blood Count 17.5 TH/MM3 15.9 TH/MM3 Red Blood Count 3.19 MIL/MM3 3.31 MIL/MM3 Hemoglobin 9.1 GM/DL 9.8 GM/DL Hematocrit 28.3 % 29.5 % Mean Corpuscular Volume 88.7 FL 89.0 FL Mean Corpuscular Hemoglobin 28.5 PG 29.7 PG Mean Corpuscular Hemoglobin Concent 32.2 % 33.4 % Red Cell Distribution Width 15.3 % 15.5 % Platelet Count 401 TH/MM3 409 TH/MM3 Mean Platelet Volume 7.2 FL 7.1 FL Neutrophils (%) (Auto) 85.1 % 85.4 % Lymphocytes (%) (Auto) 6.9 % 6.7 % Monocytes (%) (Auto) 5.1 % 5.9 % Eosinophils (%) (Auto) 2.1 % 1.5 % Basophils (%) (Auto) 0.8 % 0.5 % Neutrophils # (Auto) 14.9 TH/MM3 13.6 TH/MM3 Lymphocytes # (Auto) 1.2 TH/MM3 1.1 TH/MM3 Monocytes # (Auto) 0.9 TH/MM3 0.9 TH/MM3 Eosinophils # (Auto) 0.4 TH/MM3 0.2 TH/MM3 Basophils # (Auto) 0.1 TH/MM3 0.1 TH/MM3 CBC Comment AUTO DIFF AUTO DIFF Differential Total Cells Counted 100 100 Neutrophils % (Manual) 59 % 70 % Band Neutrophils % 26 % 13 % Lymphocytes % 6 % 6 % Monocytes % 6 % 8 % Eosinophils % 2 % 1 % Basophils % 1 % 1 % Neutrophils # (Manual) 14.9 TH/MM3 13.4 TH/MM3 Differential Comment FINAL DIFF MANUAL FINAL DIFF MANUAL Platelet Estimate NORMAL NORMAL Platelet Morphology Comment ENLARGED NORMAL Hematology Comments Metamyelocytes 1 % Toxic Granulation 1+ Laboratory Tests Test 07/09/17 08:40 07/10/17 07:47 07/10/17 11:41 Blood Urea Nitrogen 19 MG/DL 25 MG/DL Creatinine 1.60 MG/DL 2.22 MG/DL Random Glucose 52 MG/DL 76 MG/DL Calcium Level 8.8 MG/DL 8.9 MG/DL Sodium Level 136 MEQ/L 134 MEQ/L Potassium Level 4.1 MEQ/L 3.9 MEQ/L Chloride Level 95 MEQ/L 95 MEQ/L Carbon Dioxide Level 31.5 MEQ/L 29.6 MEQ/L Anion Gap 10 MEQ/L 9 MEQ/L Estimat Glomerular Filtration Rate 32 ML/MIN 22 ML/MIN Triglycerides Level 149 MG/DL Cholesterol Level 142 MG/DL LDL Cholesterol 70 MG/DL HDL Cholesterol 42.2 MG/DL Cholesterol/HDL Ratio 3.36 RATIO Microbiology Date/Time Source Procedure Growth Status 07/07/17 19:37 Blood Peripheral Aerobic Blood Culture - Preliminary NO GROWTH IN 3 DAYS Resulted 07/07/17 19:37 Blood Peripheral Anaerobic Blood Culture - Preliminary NO GROWTH IN 3 DAYS Resulted 07/07/17 19:32 Blood Peripheral Aerobic Blood Culture - Preliminary NO GROWTH IN 3 DAYS Resulted 07/07/17 19:32 Blood Peripheral Anaerobic Blood Culture - Preliminary NO GROWTH IN 3 DAYS Resulted 07/08/17 06:00 Urine Clean Catch Urine Culture - Final Klebsiella Pneumoniae Escherichia Coli Complete Imaging Last Impressions Aorta w/Runoff CTA 07/08/17 0000 Signed Impressions: Service Date/Time: Saturday, July 08, 2017 21:18 - CONCLUSION: 1. Moderate to severe atherosclerotic disease of aorta without aneurysm. Blood flow in both lower extremities is maintained with good perfusion appreciated to the distal legs bilaterally. No high-grade stenosis or occlusion is visualized. 2. The nonvascular structures visualized demonstrate no acute finding. Pollo Mccabe MD Chest X-Ray 07/07/17 0000 Signed Impressions: Service Date/Time: Friday, July 07, 2017 17:08 - CONCLUSION: Mild compensated cardiomegaly. Gautam Sánchez MD FACR Upper Extremity Ultrasound 07/06/17 0000 Signed Impressions: Service Date/Time: June 20:27 - CONCLUSION: 1. Negative for deep venous thrombosis in the upper extremities. Right IJ line present. Kostas Rosado MD Myocardial Perfusion Scan Nuc Med 07/03/17 0000 Signed Impressions: Service Date/Time: Monday, July 03, 2017 13:26 - CONCLUSION: 1. Apical thinning versus old apical infarct. 2. No reversibility to suggest ischemia. 3. Adequate wall motion throughout with an estimated ejection fraction of 61%% RISK CATEGORY: Low (<1%% Annual Mortality Rate) Yamil Pozo MD Chest CT 06/24/17 0000 Signed Impressions: Service Date/Time: Saturday, June 24, 2017 16:21 - CONCLUSION: Areas of scarring in the lungs with COPD and scattered tiny nodules most likely benign, repeat noncontrast chest CT is suggested in 6 months as a conservative follow up. Sujit Bunch MD Abdomen X-Ray 06/21/17 0000 Signed Impressions: Service Date/Time: Wednesday, June 21, 2017 18:55 - CONCLUSION: No acute disease. Joaquin Freed MD Tibia/Fibula X-Ray 06/13/17 0000 Signed Impressions: Service Date/Time: Tuesday, June 13, 2017 20:40 - CONCLUSION: 1. Ulceration at the lateral leg with soft tissue swelling. No bony abnormality. Kostas Rosado MD Physical Exam CONSTITUTIONAL/GENERAL: This is an adequately nourished patient, in no apparent distress. TUBES/LINES/DRAINS: SKIN: No jaundice, Diffuse morbiliform macula papular rash on torso, BUE , abdomen: looks about the same may be a little less red lesions. Skin temperature appropriate. Not diaphoretic. + cyanosis mottling present on BLE RLE - full thickness clean based partially granulated large ulceration very tender with minimal serosag drainage No necrotic tissue noted Prominent skin atrophy with paper thin skin noted HEAD: Atraumatic. Normocephalic. EYES: Pupils equal and round and reactive. Extraocular motions intact. No scleral icterus. No injection or drainage. Fundi not examined. ENT: Hearing grossly normal. Nose without bleeding or purulent drainage. Throat without visible erythema, exudates, masses, or lesions. NECK: Trachea midline. Supple, nontender. No palpable thyroid enlargement or nodularity. CARDIOVASCULAR: Regular rate and rhythm without murmurs, gallops, or rubs. No JVD. Peripheral pulses symmetric. RESPIRATORY/CHEST: Symmetric, unlabored respirations. B/l scattered end- expiratory wheezing to auscultation. Breath sounds equally diminished bilaterally. GASTROINTESTINAL: Abdomen soft, non-tender, nondistended. No hepato-splenomegaly , or palpable masses. No guarding. Bowel sounds present. GENITOURINARY: Without palpable bladder distension. MUSCULOSKELETAL: Extremities without clubbing, + b/l feet cyanosis, no mottling or edema. No joint tenderness or effusion noted. No calf tenderness. No mottling or clubbing. NEUROLOGICAL: Awake and alert. Motor and sensory grossly within normal limits. Follows commands. Clear speech. Moves all extremities. PSYCHIATRIC: No obvious anxiety/depression. no apparent hallucinations or other psychotic thought process. Assessment & Plan Remarks Assessment and Plan Assessment and Plan Assessment and Plan H/o bacterial infection of RLE - completed tx 2 weeks ago New rash: most likely allergic reaction to one of the medication - it appears that rash is not getting worse Bandemia UTI - fu blood clx - cont CFTX monitor CBC, bands monitor skin rash Michelle Choi MD Jul 10, 2017 15:05
[2017-07-10] MEDS: traMADol HCL 50 MG TAB PO PRN (15:55)
[2017-07-10] MEDS: ONDANSETRON HCL 4 MG/2 ML VIAL IV PUSH PRN (16:01)
--- NOTE | 2017-07-10 16:45 | HHI.PR ---
Subjective Remarks No new complaints. Objective Vitals Vital Signs Date Time Temp Pulse Resp B/P (MAP) Pulse Ox O2 Delivery O2 Flow Rate FiO2 07/10/17 16:00 97.4 66 19 118/68 (85) 96 07/10/17 12:18 98 Nasal Cannula 2.00 07/10/17 12:00 96.9 125 19 142/68 (92) 95 07/10/17 10:23 Nasal Cannula 2.00 Humidified 07/10/17 08:00 97.4 123 19 123/71 (88) 96 07/10/17 04:01 96.9 119 20 105/69 (81) 95 07/10/17 00:00 97.1 119 20 123/67 (85) 98 07/10/17 00:00 123 07/09/17 20:09 Nasal Cannula 2.00 07/09/17 20:00 97.3 112 20 113/68 (83) 98 07/10/17 07/10/17 07/11/17 15:00 23:00 07:00 Intake Total 240 ml Balance 240 ml Intake Oral 240 ml Result Diagram: 07/10/17 1141 07/10/17 1141 Imaging Last Impressions Aorta w/Runoff CTA 07/08/17 0000 Signed Impressions: Service Date/Time: Saturday, July 08, 2017 21:18 - CONCLUSION: 1. Moderate to severe atherosclerotic disease of aorta without aneurysm. Blood flow in both lower extremities is maintained with good perfusion appreciated to the distal legs bilaterally. No high-grade stenosis or occlusion is visualized. 2. The nonvascular structures visualized demonstrate no acute finding. Pollo Mccabe MD Chest X-Ray 07/07/17 0000 Signed Impressions: Service Date/Time: Friday, July 07, 2017 17:08 - CONCLUSION: Mild compensated cardiomegaly. Gautam Sánchez MD FACR Upper Extremity Ultrasound 07/06/17 0000 Signed Impressions: Service Date/Time: June 20:27 - CONCLUSION: 1. Negative for deep venous thrombosis in the upper extremities. Right IJ line present. Kostas Rosado MD Myocardial Perfusion Scan Nuc Med 07/03/17 0000 Signed Impressions: Service Date/Time: Monday, July 03, 2017 13:26 - CONCLUSION: 1. Apical thinning versus old apical infarct. 2. No reversibility to suggest ischemia. 3. Adequate wall motion throughout with an estimated ejection fraction of 61%% RISK CATEGORY: Low (<1%% Annual Mortality Rate) Yamil Pozo MD Chest CT 06/24/17 0000 Signed Impressions: Service Date/Time: Saturday, June 24, 2017 16:21 - CONCLUSION: Areas of scarring in the lungs with COPD and scattered tiny nodules most likely benign, repeat noncontrast chest CT is suggested in 6 months as a conservative follow up. Sujit Bunch MD Abdomen X-Ray 06/21/17 0000 Signed Impressions: Service Date/Time: Wednesday, June 21, 2017 18:55 - CONCLUSION: No acute disease. Joaquin Freed MD Tibia/Fibula X-Ray 06/13/17 0000 Signed Impressions: Service Date/Time: Tuesday, June 13, 2017 20:40 - CONCLUSION: 1. Ulceration at the lateral leg with soft tissue swelling. No bony abnormality. Kostas Rosado MD Objective Remarks GENERAL: This is a well-nourished, well-developed patient, in no apparent distress. SKIN: Patient has erythematous rash through out anterior and posterior truck as well as arms and upper legs- less reddened today. Patient has tenia in bilateral groin and gluteal cleft. Also skin breakdown on bilateral buttock CARDIOVASCULAR: Regular rate and rhythm RESPIRATORY: Clear to auscultation. Breath sounds equal bilaterally. GASTROINTESTINAL: Abdomen soft, non-tender, nondistended. Normal active bowel sounds MUSCULOSKELETAL: Extremities without clubbing, cyanosis, or edema. wet to dry dressing in place at [facility] NEURO: Alert & Oriented x4 to person, place, time, situation. Moves all ext x4 Procedures Pt underwent surgical debridement with wound vac placement on 06/15/[address] Clark - Pt underwent a vac change in OR on 06/17/17, 06/19, 06/21, 06/23, 06/26 - Pt has wound vac change at bedside on 06/30/17, 07/04/17 and recommended for continued wound vac changes on Tuesdays and Fridays A/P Problem List: (1) UTI due to Klebsiella species ICD Codes: N39.0 - Urinary tract infection, site not specified; B96.1 - Klebsiella pneumoniae [K. pneumoniae] as the cause of diseases classified elsewhere Status: Acute Plan: - Urine Cx (07/08) --> klebsiella & e. coli - start IV rocephin - WBC 15.9 (07/09) - repeat CBC in AM (2) Rash ICD Codes: R21 - Rash and other nonspecific skin eruption Plan: - appreciate input from ID, Dr. Choi - rash improving from 07/08, less red. - Unlikely to be infectious - drug allergy rash? Unclear which medication might be the trigger - lasix stopped 07/07 - rash continues to improve - supportive care (3) Open leg wound ICD Codes: S81.809A - Unspecified open wound, unspecified lower leg, initial encounter Status: Acute Plan: RLE nonhealing wound - Patient with large, necrotic open wound right lower extremity x 2 months. - Wound culture growing gram negative rods - Blood cultures with no growth - Pt has been started on Zosyn and Vancomycin - General Surgery is following - Pt underwent surgical debridement with wound vac placement on 06/15/[address] Clark - Pt underwent a vac change on 06/17/17, 06/19, 06/21, 06/23, 06/26 - wound VAC with PO dilaudid on 07/07/17 - Pt was very painful with bedside wound VAC change 07/07 despite PO dialudid - Case d/w General Surgery, Dr. Knight (07/07). Dressing changed to wet-to -dry - CTA with runoff (07/08) Moderate to severe atherosclerotic disease of aorta without aneurysm. Blood flow in both lower extremities is maintained with good perfusion appreciated to the distal legs bilaterally. No high-grade stenosis or occlusion is visualized. The nonvascular structures visualized demonstrate no acute finding. - Pt with B/L LE edema and weeping, improving. - PO lasix stopped 07/08, contributing to rash? Will observe. Pt may need to have diuretic resumed. - Patient creatinine increased to 1.6 (07/09), 2.2 (07/10) patient had contrast study 07/08. - will gingerly give IVFs - repeat BMP in AM & observe Creatinine - Pain control PRN - Constipation precautions, Vivian-Colace BID, MOM PRB, Dulcolax PRN - Supportive care - SCD on non-surgical leg Tachycardia - Outpt 2D echo (04/03/17) --> Mild concentric LVH, Estimated EF 50%, Grade 1 diastolic dysfunction, Moderate mitral valve regurg, Mild tricuspid valve regurg, Normal estimated PA pressure, 32.7mmHg - Telemetry with noted sinus tachycardia - EKG in the ED noted sinus tachycardia - repeat EKG (06/23) --> sinus tachycardia, 109, with occasional PVC - continue Ultram PRN. add acetaminophen scheduled. Patient does not want stronger pain medication. She is fearful of sedation/side effects - place continuous telemetry for closer monitoring of HR and rhythm - suspect pain, anxiety, COPD, and prednisone are all contributing - Lexiscan requested per Dr. Parsons, Patient refusing -Pt has run Vt 07/02....cardiology consulted. echo ordered and ischemic w/up is considered. - Zulema (07/02) --> reviewed with Radiology. EF 61%, subtle inferior/basilar wall reversible defect - echocardiogram (07/04) --> EF 60-65% - metoprolol 25mg BID - Case d/w Dr. Hutchins. He will reevaluate. COPD/Chemical exposure hx in 08/2016 - PFT in 2016 with reported FEV1 of 0.51, 20% of predicted - Continue Symbicort BID and Combivent QID - Pt was given a dose of IV Solu-Medrol at admission - Prednisone 20mg alt with 10mg every other day -> (06/25) transitioned to Prednisone 10 mg daily - prednisone decreased to 5mg daily (07/04) - Duonebs to q6h while awake - Pt refused Budesonide Nebs BID - Supplemental O2 as needed - repeat CXR (06/24) hyperinflation without infiltrate. Small nodule RUL recommend outpatient follow up CT - CT chest without contrast (06/24) Areas of scarring in the lungs with COPD and scattered tiny nodules most likely benign, repeat noncontrast chest CT is suggested in 6 months as a conservative follow up Hyperglycemia - Pt likely with steroid induced hyperglycemia with her prolonged steroid use - Hgb A1C is 8.6% - She has been having some intermittent issues with hypoglycemia - NovoLog SSI Dc'd (06/22) - Accu checks ACHS Decreased appetite Remeron 30 mg PO QHS started Multivitamin started (4) Edema of upper extremity ICD Codes: R60.0 - Localized edema Status: Acute Plan: - increased edema of RUE - obtain UE US to r/o DVT - elevate RUE - see above (5) COPD (chronic obstructive pulmonary disease) ICD Codes: J44.9 - Chronic obstructive pulmonary disease, unspecified Status: Chronic (6) Hyperglycemia ICD Codes: R73.9 - Hyperglycemia, unspecified Status: Chronic (7) Tinea ICD Codes: B35.9 - Dermatophytosis, unspecified Plan: bilateral groin and gluteal cleft nystatin to affected area (8) Buttock wound ICD Codes: S31.809A - Unspecified open wound of unspecified buttock, initial encounter Plan: open skin breakdown buttock area antifungal/barrier cream to buttock area keep area clean and dry specialty bed to relieve pressure Problem Qualifiers (1) Open leg wound: Qualified Codes: S81.801A - Unspecified open wound, right lower leg, initial encounter Kin Parsons DO Jul 10, 2017 16:45
[2017-07-10] MEDS: MIRTAZAPINE 15 MG TAB PO SCH (21:33)
[2017-07-10] MEDS: REMOVE OLD PATCH T-DERMAL SCH (21:33)
[2017-07-10] MEDS: NS + KCL 20 MEQ INJ 1,000 ML IV SCH (21:34)
[2017-07-11] VITALS (8 sets, daily range): BP systolic 105–130; BP diastolic 61–82; PULSE 83–136; RESP 18–20; TEMP 95.7–97.8; O2SAT 92–100
[2017-07-11] MEDS: NS + KCL 20 MEQ INJ 1,000 ML IV SCH (04:59)
[2017-07-11] MEDS: NYSTATIN 100,000 U/GM PWD 15 GM BTL TOPICAL SCH ×3 (04:59→22:00)
--- NOTE | 2017-07-11 07:39 | HHI.PR ---
Subjective Remarks Patient reports that her rash is less itchy today offers no new complaints Objective Vitals Vital Signs Date Time Temp Pulse Resp B/P (MAP) Pulse Ox O2 Delivery O2 Flow Rate FiO2 07/11/17 04:25 93 07/11/17 04:00 95.7 100 18 124/73 (90) 99 07/11/17 00:00 136 07/11/17 00:00 97.6 130 20 128/82 (97) 100 07/10/17 21:35 Nasal Cannula 2.00 Humidified 07/10/17 20:21 96.7 125 20 135/77 (96) 97 07/10/17 20:00 122 07/10/17 16:00 97.4 66 19 118/68 (85) 96 07/10/17 12:18 98 Nasal Cannula 2.00 07/10/17 12:00 96.9 125 19 142/68 (92) 95 07/10/17 10:23 Nasal Cannula 2.00 Humidified 07/10/17 08:00 97.4 123 19 123/71 (88) 96 Result Diagram: 07/10/17 1141 07/10/17 1141 Other Results Laboratory Tests Test 07/08/17 10:02 07/09/17 08:40 07/10/17 07:47 07/10/17 11:41 White Blood Count 15.6 TH/MM3 17.5 TH/MM3 15.9 TH/MM3 Red Blood Count 2.93 MIL/MM3 3.19 MIL/MM3 3.31 MIL/MM3 Hemoglobin 8.8 GM/DL 9.1 GM/DL 9.8 GM/DL Hematocrit 26.0 % 28.3 % 29.5 % Mean Corpuscular Volume 88.6 FL 88.7 FL 89.0 FL Mean Corpuscular Hemoglobin 30.1 PG 28.5 PG 29.7 PG Mean Corpuscular Hemoglobin Concent 33.9 % 32.2 % 33.4 % Red Cell Distribution Width 15.3 % 15.3 % 15.5 % Platelet Count 363 TH/MM3 401 TH/MM3 409 TH/MM3 Mean Platelet Volume 7.0 FL 7.2 FL 7.1 FL Neutrophils (%) (Auto) 88.9 % 85.1 % 85.4 % Lymphocytes (%) (Auto) 4.6 % 6.9 % 6.7 % Monocytes (%) (Auto) 5.0 % 5.1 % 5.9 % Eosinophils (%) (Auto) 1.0 % 2.1 % 1.5 % Basophils (%) (Auto) 0.5 % 0.8 % 0.5 % Neutrophils # (Auto) 13.9 TH/MM3 14.9 TH/MM3 13.6 TH/MM3 Lymphocytes # (Auto) 0.7 TH/MM3 1.2 TH/MM3 1.1 TH/MM3 Monocytes # (Auto) 0.8 TH/MM3 0.9 TH/MM3 0.9 TH/MM3 Eosinophils # (Auto) 0.2 TH/MM3 0.4 TH/MM3 0.2 TH/MM3 Basophils # (Auto) 0.1 TH/MM3 0.1 TH/MM3 0.1 TH/MM3 CBC Comment AUTO DIFF AUTO DIFF AUTO DIFF Differential Total Cells Counted 100 100 100 Neutrophils % (Manual) 94 % 59 % 70 % Band Neutrophils % 4 % 26 % 13 % Lymphocytes % 1 % 6 % 6 % Neutrophils # (Manual) 15.4 TH/MM3 14.9 TH/MM3 13.4 TH/MM3 Metamyelocytes 1 % 1 % Differential Comment FINAL DIFF MANUAL FINAL DIFF MANUAL FINAL DIFF MANUAL Monocytes % 6 % 8 % Eosinophils % 2 % 1 % Basophils % 1 % 1 % Platelet Estimate NORMAL NORMAL Platelet Morphology Comment ENLARGED NORMAL Hematology Comments Blood Urea Nitrogen 19 MG/DL 25 MG/DL Creatinine 1.60 MG/DL 2.22 MG/DL Random Glucose 52 MG/DL 76 MG/DL Calcium Level 8.8 MG/DL 8.9 MG/DL Sodium Level 136 MEQ/L 134 MEQ/L Potassium Level 4.1 MEQ/L 3.9 MEQ/L Chloride Level 95 MEQ/L 95 MEQ/L Carbon Dioxide Level 31.5 MEQ/L 29.6 MEQ/L Anion Gap 10 MEQ/L 9 MEQ/L Estimat Glomerular Filtration Rate 32 ML/MIN 22 ML/MIN Triglycerides Level 149 MG/DL Cholesterol Level 142 MG/DL LDL Cholesterol 70 MG/DL HDL Cholesterol 42.2 MG/DL Cholesterol/HDL Ratio 3.36 RATIO Toxic Granulation 1+ Imaging Last Impressions Aorta w/Runoff CTA 07/08/17 0000 Signed Impressions: Service Date/Time: Saturday, July 08, 2017 21:18 - CONCLUSION: 1. Moderate to severe atherosclerotic disease of aorta without aneurysm. Blood flow in both lower extremities is maintained with good perfusion appreciated to the distal legs bilaterally. No high-grade stenosis or occlusion is visualized. 2. The nonvascular structures visualized demonstrate no acute finding. Pollo Mccabe MD Chest X-Ray 07/07/17 0000 Signed Impressions: Service Date/Time: Friday, July 07, 2017 17:08 - CONCLUSION: Mild compensated cardiomegaly. Gautam Sánchez MD FACR Upper Extremity Ultrasound 07/06/17 0000 Signed Impressions: Service Date/Time: June 20:27 - CONCLUSION: 1. Negative for deep venous thrombosis in the upper extremities. Right IJ line present. Kostas Rosado MD Myocardial Perfusion Scan Nuc Med 07/03/17 0000 Signed Impressions: Service Date/Time: Monday, July 03, 2017 13:26 - CONCLUSION: 1. Apical thinning versus old apical infarct. 2. No reversibility to suggest ischemia. 3. Adequate wall motion throughout with an estimated ejection fraction of 61%% RISK CATEGORY: Low (<1%% Annual Mortality Rate) Yamil Pozo MD Chest CT 06/24/17 0000 Signed Impressions: Service Date/Time: Saturday, June 24, 2017 16:21 - CONCLUSION: Areas of scarring in the lungs with COPD and scattered tiny nodules most likely benign, repeat noncontrast chest CT is suggested in 6 months as a conservative follow up. Sujit Bunch MD Abdomen X-Ray 06/21/17 0000 Signed Impressions: Service Date/Time: Wednesday, June 21, 2017 18:55 - CONCLUSION: No acute disease. Joaquin Freed MD Tibia/Fibula X-Ray 06/13/17 0000 Signed Impressions: Service Date/Time: Tuesday, June 13, 2017 20:40 - CONCLUSION: 1. Ulceration at the lateral leg with soft tissue swelling. No bony abnormality. Kostas Rosado MD Objective Remarks GENERAL: This is a well-nourished, well-developed patient, in no apparent distress. SKIN: Patient has erythematous rash through out anterior and posterior truck as well as arms and upper legs- less reddened today. Patient has tenia in bilateral groin and gluteal cleft. Also skin breakdown on bilateral buttock. CARDIOVASCULAR: Regular rate and rhythm RESPIRATORY: Clear to auscultation. Breath sounds equal bilaterally. GASTROINTESTINAL: Abdomen soft, non-tender, nondistended. Normal active bowel sounds MUSCULOSKELETAL: Extremities without clubbing, cyanosis, or edema. wet to dry dressing in place at [facility] NEURO: Alert & Oriented x4 to person, place, time, situation. Moves all ext x4 Procedures Pt underwent surgical debridement with wound vac placement on 06/15/[address] Clark - Pt underwent a vac change in OR on 06/17/17, 06/19, 06/21, 06/23, 06/26 - Pt has wound vac change at bedside on 06/30/17, 07/04/17 and recommended for continued wound vac changes on Tuesdays and Fridays A/P Problem List: (1) Open leg wound ICD Codes: S81.809A - Unspecified open wound, unspecified lower leg, initial encounter Status: Acute Plan: E nonhealing wound - Patient with large, necrotic open wound right lower extremity x 2 months. - Wound culture growing gram negative rods - Blood cultures with no growth - Pt has been started on Zosyn and Vancomycin - General Surgery is following - Pt underwent surgical debridement with wound vac placement on 06/15/[address] Clark - Pt underwent a vac change on 06/17/17, 06/19, 06/21, 06/23, 06/26 - wound VAC with PO dilaudid on 07/07/17 - Pt was very painful with bedside wound VAC change 07/07 despite PO dialudid - Case d/w General Surgery, Dr. Knight (07/07). Dressing changed to wet-to -dry - CTA with runoff (07/08) Moderate to severe atherosclerotic disease of aorta without aneurysm. Blood flow in both lower extremities is maintained with good perfusion appreciated to the distal legs bilaterally. No high-grade stenosis or occlusion is visualized. The nonvascular structures visualized demonstrate no acute finding. - Pt with B/L LE edema and weeping, improving. - PO lasix stopped 07/08, contributing to rash? Will observe. Pt may need to have diuretic resumed. - Patient creatinine increased to 1.6 (07/09), 2.2 (07/10) patient had contrast study 07/08. - will gingerly give IVFs - repeat BMP in AM & observe Creatinine - Pain control PRN - Constipation precautions, Vivian-Colace BID, MOM PRB, Dulcolax PRN - Supportive care - SCD on non-surgical leg UTI due to Klebsiella species - Urine Cx (07/08) --> klebsiella & e. coli - start IV rocephin - WBC 15.9 (07/09) - repeat CBC pending Rash - appreciate input from ID, Dr. Choi - rash improving from 07/08, less red. - Unlikely to be infectious - drug allergy rash? Unclear which medication might be the trigger - lasix stopped 07/07 - one time dose solu medrol 125 mg - rash continues to improve - supportive care Tachycardia - Outpt 2D echo (04/03/17) --> Mild concentric LVH, Estimated EF 50%, Grade 1 diastolic dysfunction, Moderate mitral valve regurg, Mild tricuspid valve regurg, Normal estimated PA pressure, 32.7mmHg - Telemetry with noted sinus tachycardia - EKG in the ED noted sinus tachycardia - repeat EKG (06/23) --> sinus tachycardia, 109, with occasional PVC - continue Ultram PRN. add acetaminophen scheduled. Patient does not want stronger pain medication. She is fearful of sedation/side effects - place continuous telemetry for closer monitoring of HR and rhythm - suspect pain, anxiety, COPD, and prednisone are all contributing - Lexiscan requested per Dr. Parsons, Patient refusing -Pt has run Vt 07/02....cardiology consulted. echo ordered and ischemic w/up is considered. - Zulema (07/02) --> reviewed with Radiology. EF 61%, subtle inferior/basilar wall reversible defect - echocardiogram (07/04) --> EF 60-65% - metoprolol 25mg BID - Case d/w Dr. Hutchins. He will reevaluate. COPD/Chemical exposure hx in 08/2016 - PFT in 2017 with reported FEV1 of 0.51, 20% of predicted - Continue Symbicort BID and Combivent QID - Pt was given a dose of IV Solu-Medrol at admission - Prednisone 20mg alt with 10mg every other day -> (06/25) transitioned to Prednisone 10 mg daily - prednisone decreased to 5mg daily (07/04) - Duonebs to q6h while awake - Pt refused Budesonide Nebs BID - Supplemental O2 as needed - repeat CXR (06/24) hyperinflation without infiltrate. Small nodule RUL recommend outpatient follow up CT - CT chest without contrast (2/3) Areas of scarring in the lungs with COPD and scattered tiny nodules most likely benign, repeat noncontrast chest CT is suggested in 6 months as a conservative follow up Hyperglycemia - Pt likely with steroid induced hyperglycemia with her prolonged steroid use - Hgb A1C is 8.6% - She has been having some intermittent issues with hypoglycemia - NovoLog SSI Dc'd (06/22) - Accu checks ACHS Decreased appetite Remeron 30 mg PO QHS started Multivitamin started Edema of upper extremity - increased edema of RUE - obtain UE US to r/o DVT, neg for DVT - elevate RUE - see above COPD (chronic obstructive pulmonary disease) Chronic Hyperglycemia Chronic Tinea bilateral groin and gluteal cleft nystatin to affected area Buttock wound open skin breakdown buttock area antifungal/barrier cream to buttock area keep area clean and dry specialty bed to relieve pressure (2) UTI due to Klebsiella species ICD Codes: N39.0 - Urinary tract infection, site not specified; B96.1 - Klebsiella pneumoniae [K. pneumoniae] as the cause of diseases classified elsewhere Status: Acute Plan: see above (3) Rash ICD Codes: R21 - Rash and other nonspecific skin eruption Plan: see above (4) Edema of upper extremity ICD Codes: R60.0 - Localized edema Status: Acute Plan: see above (5) COPD (chronic obstructive pulmonary disease) ICD Codes: J44.9 - Chronic obstructive pulmonary disease, unspecified Status: Chronic (6) Hyperglycemia ICD Codes: R73.9 - Hyperglycemia, unspecified Status: Chronic (7) Tinea ICD Codes: B35.9 - Dermatophytosis, unspecified (8) Buttock wound ICD Codes: S31.809A - Unspecified open wound of unspecified buttock, initial encounter Problem Qualifiers (1) Open leg wound: Qualified Codes: S81.801A - Unspecified open wound, right lower leg, initial encounter Radha Bansal Jul 11, 2017 07:39
[2017-07-11 08:14] LABS: AUTOMATED NEUTROPHIL # 12.1 TH/MM3 (1.8-7.7); BASOPHIL # 0.1 TH/MM3 (0-0.2); BASOPHIL % 0.4 % (0.0-2.0); EOSINOPHIL # 0.2 TH/MM3 (0-0.4); EOSINOPHIL % 1.7 % (0.0-4.0); HEMATOCRIT 26.7 % (35.0-46.0); HEMOGLOBIN 8.8 GM/DL (11.6-15.3); LYMPH % 7.6 % (9.0-44.0); LYMPHOCYTE # 1.1 TH/MM3 (1.0-4.8); MEAN CORPUSCULAR HEMOGLOBIN 29.6 PG (27.0-34.0); MEAN CORPUSCULAR HGB CONC 32.9 % (32.0-36.0); MEAN PLATELET VOLUME 6.6 FL (7.0-11.0); NEUT % 83.3 % (16.0-70.0); PLATELET COUNT 370 TH/MM3 (150-450); RED BLOOD COUNT 2.97 MIL/MM3 (4.00-5.30); RED CELL DISTRIBUTION WIDTH 15.8 % (11.6-17.2); WHITE BLOOD COUNT 14.5 TH/MM3 (4.0-11.0)
[2017-07-11 08:43] LABS: BICARBONATE 29.9 MEQ/L (21.0-32.0); CALCIUM 8.4 MG/DL (8.5-10.1); CREATININE 2.35 MG/DL (0.50-1.00); MAGNESIUM 2.1 MG/DL (1.5-2.5)
[2017-07-11] MEDS: DOCUSATE SODIUM 50 MG/SENNA 8.6 MG TAB PO SCH ×2 (09:00→20:25)
[2017-07-11] MEDS: METOPROLOL TARTRATE 25 MG TAB PO SCH ×2 (09:17→20:25)
[2017-07-11] MEDS: BUDESONIDE-FORMOTEROL 80/4.5 MCG INHALER INH SCH ×2 (09:17→20:25)
[2017-07-11] MEDS: POTASSIUM CHLORIDE 25 MEQ EFFERVESCENT TAB PO SCH (09:18)
[2017-07-11] MEDS: MULTIVITAMIN TAB PO SCH (09:18)
[2017-07-11] MEDS: predniSONE 5 MG TAB PO SCH (09:18)
[2017-07-11 10:27] LABS: BANDS 26 % (0-6); BASOPHILS 1 % (0-2); LYMPHOCYTES 9 % (9-44); METAMYELOCYTES 1 % (0-1); MONOCYTES 4 % (0-8); NEUTROPHIL # MANUAL DIFF 12.2 TH/MM3 (1.8-7.7); POLYS (SEG NEUTROPHILS) 57 % (16-70)
[2017-07-11] MEDS: cefTRIAXone INJ 1,000 MG in SODIUM CHLORIDE 0.9% INJ 100 ML IV SCH (11:38)
[2017-07-11] MEDS ORDERED: SODIUM CHLOR 0.45% 1000 ML INJ 1,000 ML IV SCH (12:00)
[2017-07-11] MEDS ORDERED: methylPREDNISolone SOD SUCC 125 MG/2 ML VIAL IV PUSH ONE (14:30)
--- NOTE | 2017-07-11 15:56 | HHI.IDPN ---
Subjective Subjective Remarks she thinks her rash is better urine clx + Worsening GFR no fever Antibiotics CFTX Allergies: Coded Allergies: codeine (Verified Allergy, Severe, 06/13/17) morphine (Unverified Allergy, Severe, Anaphylaxis, 01/04/17) sulfamethoxazole (Verified Allergy, Severe, 06/13/17) trimethoprim (Verified Allergy, Severe, 06/13/17) Objective . Vital Signs Date Time Temp Pulse Resp B/P (MAP) Pulse Ox O2 Delivery O2 Flow Rate FiO2 07/11/17 12:00 97.4 101 19 111/75 (87) 95 07/11/17 11:46 96 Nasal Cannula 2.00 07/11/17 08:00 97.6 124 19 130/73 (92) 96 07/11/17 04:25 93 07/11/17 04:00 95.7 100 18 124/73 (90) 99 07/11/17 00:00 136 07/11/17 00:00 97.6 130 20 128/82 (97) 100 07/10/17 21:35 Nasal Cannula 2.00 Humidified 07/10/17 20:21 96.7 125 20 135/77 (96) 97 07/10/17 20:00 122 07/10/17 16:00 97.4 66 19 118/68 (85) 96 07/11/17 07/11/17 07/12/17 15:00 23:00 07:00 Intake Total 240 ml Balance 240 ml Intake Oral 240 ml . Laboratory Tests Test 07/10/17 11:41 07/11/17 07:46 White Blood Count 15.9 TH/MM3 14.5 TH/MM3 Red Blood Count 3.31 MIL/MM3 2.97 MIL/MM3 Hemoglobin 9.8 GM/DL 8.8 GM/DL Hematocrit 29.5 % 26.7 % Mean Corpuscular Volume 89.0 FL 90.0 FL Mean Corpuscular Hemoglobin 29.7 PG 29.6 PG Mean Corpuscular Hemoglobin Concent 33.4 % 32.9 % Red Cell Distribution Width 15.5 % 15.8 % Platelet Count 409 TH/MM3 370 TH/MM3 Mean Platelet Volume 7.1 FL 6.6 FL Neutrophils (%) (Auto) 85.4 % 83.3 % Lymphocytes (%) (Auto) 6.7 % 7.6 % Monocytes (%) (Auto) 5.9 % 7.0 % Eosinophils (%) (Auto) 1.5 % 1.7 % Basophils (%) (Auto) 0.5 % 0.4 % Neutrophils # (Auto) 13.6 TH/MM3 12.1 TH/MM3 Lymphocytes # (Auto) 1.1 TH/MM3 1.1 TH/MM3 Monocytes # (Auto) 0.9 TH/MM3 1.0 TH/MM3 Eosinophils # (Auto) 0.2 TH/MM3 0.2 TH/MM3 Basophils # (Auto) 0.1 TH/MM3 0.1 TH/MM3 CBC Comment AUTO DIFF AUTO DIFF Differential Total Cells Counted 100 100 Neutrophils % (Manual) 70 % 57 % Band Neutrophils % 13 % 26 % Lymphocytes % 6 % 9 % Monocytes % 8 % 4 % Eosinophils % 1 % 2 % Basophils % 1 % 1 % Neutrophils # (Manual) 13.4 TH/MM3 12.2 TH/MM3 Metamyelocytes 1 % 1 % Differential Comment FINAL DIFF MANUAL FINAL DIFF MANUAL Toxic Granulation 1+ Platelet Estimate NORMAL NORMAL Platelet Morphology Comment NORMAL NORMAL Red Cell Morphology Comment NORMAL Laboratory Tests Test 07/10/17 07:47 07/10/17 11:41 07/11/17 07:46 Triglycerides Level 149 MG/DL Cholesterol Level 142 MG/DL LDL Cholesterol 70 MG/DL HDL Cholesterol 42.2 MG/DL Cholesterol/HDL Ratio 3.36 RATIO Blood Urea Nitrogen 25 MG/DL 25 MG/DL Creatinine 2.22 MG/DL 2.35 MG/DL Random Glucose 76 MG/DL 73 MG/DL Calcium Level 8.9 MG/DL 8.4 MG/DL Sodium Level 134 MEQ/L 139 MEQ/L Potassium Level 3.9 MEQ/L 5.0 MEQ/L Chloride Level 95 MEQ/L 103 MEQ/L Carbon Dioxide Level 29.6 MEQ/L 29.9 MEQ/L Anion Gap 9 MEQ/L 6 MEQ/L Estimat Glomerular Filtration Rate 22 ML/MIN 21 ML/MIN Magnesium Level 2.1 MG/DL Imaging Last Impressions Aorta w/Runoff CTA 07/08/17 0000 Signed Impressions: Service Date/Time: Saturday, July 08, 2017 21:18 - CONCLUSION: 1. Moderate to severe atherosclerotic disease of aorta without aneurysm. Blood flow in both lower extremities is maintained with good perfusion appreciated to the distal legs bilaterally. No high-grade stenosis or occlusion is visualized. 2. The nonvascular structures visualized demonstrate no acute finding. Pollo Mccabe MD Chest X-Ray 07/07/17 0000 Signed Impressions: Service Date/Time: Friday, July 07, 2017 17:08 - CONCLUSION: Mild compensated cardiomegaly. Gautam Sánchez MD FACR Upper Extremity Ultrasound 07/06/17 0000 Signed Impressions: Service Date/Time: June 20:27 - CONCLUSION: 1. Negative for deep venous thrombosis in the upper extremities. Right IJ line present. Kostas Rosado MD Myocardial Perfusion Scan Nuc Med 07/03/17 0000 Signed Impressions: Service Date/Time: Monday, July 03, 2017 13:26 - CONCLUSION: 1. Apical thinning versus old apical infarct. 2. No reversibility to suggest ischemia. 3. Adequate wall motion throughout with an estimated ejection fraction of 61%% RISK CATEGORY: Low (<1%% Annual Mortality Rate) Yamil Pozo MD Chest CT 06/24/17 0000 Signed Impressions: Service Date/Time: Saturday, June 24, 2017 16:21 - CONCLUSION: Areas of scarring in the lungs with COPD and scattered tiny nodules most likely benign, repeat noncontrast chest CT is suggested in 6 months as a conservative follow up. Sujit Bunch MD Abdomen X-Ray 06/21/17 0000 Signed Impressions: Service Date/Time: Wednesday, June 21, 2017 18:55 - CONCLUSION: No acute disease. Joaquin Freed MD Tibia/Fibula X-Ray 06/13/17 0000 Signed Impressions: Service Date/Time: Tuesday, June 13, 2017 20:40 - CONCLUSION: 1. Ulceration at the lateral leg with soft tissue swelling. No bony abnormality. Kostas Rosado MD Physical Exam CONSTITUTIONAL/GENERAL: This is an adequately nourished patient, in no apparent distress. TUBES/LINES/DRAINS: SKIN: No jaundice, Diffuse morbiliform macula papular rash on torso, BUE , abdomen: looks about the same may be a little less red lesions. Skin temperature appropriate. Not diaphoretic. + cyanosis mottling present on BLE RLE - full thickness clean based partially granulated large ulceration very tender with minimal serosag drainage No necrotic tissue noted Prominent skin atrophy with paper thin skin noted CARDIOVASCULAR: Regular rate and rhythm RESPIRATORY/CHEST: Symmetric, unlabored respirations. GASTROINTESTINAL: Abdomen soft, non-tender, nondistended. GENITOURINARY: Without palpable bladder distension. MUSCULOSKELETAL: Extremities without clubbing, + b/l feet cyanosis, no mottling or edema. No joint tenderness or effusion noted. No calf tenderness. No mottling or clubbing. NEUROLOGICAL: Awake and alert. Motor and sensory grossly within normal limits. Follows commands. Clear speech. Moves all extremities. PSYCHIATRIC: No obvious anxiety/depression. no apparent hallucinations or other psychotic thought process. Assessment & Plan Remarks Assessment and Plan Assessment and Plan Assessment and Plan H/o bacterial infection of RLE - completed tx 2 weeks ago New rash: most likely allergic reaction to one of the medication - it appears that rash is not getting worse Bandemia UTI: Kleb, E.coli - fu blood clx - cont CFTX monitor CBC, bands monitor skin rash chk urine eos Michelle Choi MD Jul 11, 2017 15:56
[2017-07-11] MEDS: MAGNESIUM HYDROXIDE SUSP 30 ML CUP PO PRN (20:25)
[2017-07-11] MEDS: REMOVE OLD PATCH T-DERMAL SCH (20:26)
[2017-07-12] VITALS (8 sets, daily range): BP systolic 96–144; BP diastolic 66–78; PULSE 64–114; RESP 18–20; TEMP 95.6–97; O2SAT 95–100
[2017-07-12] MEDS: NYSTATIN 100,000 U/GM PWD 15 GM BTL TOPICAL SCH ×3 (05:29→21:20)
[2017-07-12] MEDS: DOCUSATE SODIUM 50 MG/SENNA 8.6 MG TAB PO SCH ×2 (09:15→21:00)
[2017-07-12] MEDS: METOPROLOL TARTRATE 25 MG TAB PO SCH ×2 (09:15→21:21)
[2017-07-12] MEDS: predniSONE 5 MG TAB PO SCH (09:15)
[2017-07-12] MEDS: MULTIVITAMIN TAB PO SCH (09:15)
[2017-07-12] MEDS: BUDESONIDE-FORMOTEROL 80/4.5 MCG INHALER INH SCH ×2 (09:16→21:19)
--- NOTE | 2017-07-12 10:48 | HHI.PR ---
Subjective Remarks Pt reports that she did not sleep well last night due to increased abd pain She thinks this is more related to constipation. She had two small hard BMs yesterday +Flatus Denies any nausea/vomiting. Objective Vitals Vital Signs Date Time Temp Pulse Resp B/P (MAP) Pulse Ox O2 Delivery O2 Flow Rate FiO2 07/12/17 09:29 99 Nasal Cannula 2.00 07/12/17 08:00 96.8 87 19 105/74 (84) 99 07/12/17 04:00 66 07/12/17 04:00 95.6 77 18 144/69 (94) 96 07/12/17 00:00 95.9 80 18 96/73 (81) 100 07/12/17 00:00 64 07/11/17 20:36 Nasal Cannula 2.00 Humidified 07/11/17 20:00 96.3 84 20 115/61 (79) 92 07/11/17 20:00 83 07/11/17 16:00 97.8 95 19 105/65 (78) 95 07/11/17 12:00 97.4 101 19 111/75 (87) 95 07/11/17 11:46 96 Nasal Cannula 2.00 Result Diagram: 07/11/17 0746 07/11/17 0746 Other Results Laboratory Tests Test 07/10/17 11:41 07/11/17 07:46 White Blood Count 15.9 TH/MM3 14.5 TH/MM3 Red Blood Count 3.31 MIL/MM3 2.97 MIL/MM3 Hemoglobin 9.8 GM/DL 8.8 GM/DL Hematocrit 29.5 % 26.7 % Mean Corpuscular Volume 89.0 FL 90.0 FL Mean Corpuscular Hemoglobin 29.7 PG 29.6 PG Mean Corpuscular Hemoglobin Concent 33.4 % 32.9 % Red Cell Distribution Width 15.5 % 15.8 % Platelet Count 409 TH/MM3 370 TH/MM3 Mean Platelet Volume 7.1 FL 6.6 FL Neutrophils (%) (Auto) 85.4 % 83.3 % Lymphocytes (%) (Auto) 6.7 % 7.6 % Monocytes (%) (Auto) 5.9 % 7.0 % Eosinophils (%) (Auto) 1.5 % 1.7 % Basophils (%) (Auto) 0.5 % 0.4 % Neutrophils # (Auto) 13.6 TH/MM3 12.1 TH/MM3 Lymphocytes # (Auto) 1.1 TH/MM3 1.1 TH/MM3 Monocytes # (Auto) 0.9 TH/MM3 1.0 TH/MM3 Eosinophils # (Auto) 0.2 TH/MM3 0.2 TH/MM3 Basophils # (Auto) 0.1 TH/MM3 0.1 TH/MM3 CBC Comment AUTO DIFF AUTO DIFF Differential Total Cells Counted 100 100 Neutrophils % (Manual) 70 % 57 % Band Neutrophils % 13 % 26 % Lymphocytes % 6 % 9 % Monocytes % 8 % 4 % Eosinophils % 1 % 2 % Basophils % 1 % 1 % Neutrophils # (Manual) 13.4 TH/MM3 12.2 TH/MM3 Metamyelocytes 1 % 1 % Differential Comment FINAL DIFF MANUAL FINAL DIFF MANUAL Toxic Granulation 1+ Platelet Estimate NORMAL NORMAL Platelet Morphology Comment NORMAL NORMAL Blood Urea Nitrogen 25 MG/DL 25 MG/DL Creatinine 2.22 MG/DL 2.35 MG/DL Random Glucose 76 MG/DL 73 MG/DL Calcium Level 8.9 MG/DL 8.4 MG/DL Sodium Level 134 MEQ/L 139 MEQ/L Potassium Level 3.9 MEQ/L 5.0 MEQ/L Chloride Level 95 MEQ/L 103 MEQ/L Carbon Dioxide Level 29.6 MEQ/L 29.9 MEQ/L Anion Gap 9 MEQ/L 6 MEQ/L Estimat Glomerular Filtration Rate 22 ML/MIN 21 ML/MIN Red Cell Morphology Comment NORMAL Magnesium Level 2.1 MG/DL Imaging Last Impressions Aorta w/Runoff CTA 07/08/17 0000 Signed Impressions: Service Date/Time: Saturday, July 08, 2017 21:18 - CONCLUSION: 1. Moderate to severe atherosclerotic disease of aorta without aneurysm. Blood flow in both lower extremities is maintained with good perfusion appreciated to the distal legs bilaterally. No high-grade stenosis or occlusion is visualized. 2. The nonvascular structures visualized demonstrate no acute finding. Pollo Mccabe MD Chest X-Ray 07/07/17 0000 Signed Impressions: Service Date/Time: Friday, July 07, 2017 17:08 - CONCLUSION: Mild compensated cardiomegaly. Gautam Sánchez MD FACR Upper Extremity Ultrasound 07/06/17 0000 Signed Impressions: Service Date/Time: June 20:27 - CONCLUSION: 1. Negative for deep venous thrombosis in the upper extremities. Right IJ line present. Kostas Rosado MD Myocardial Perfusion Scan Nuc Med 07/03/17 0000 Signed Impressions: Service Date/Time: Monday, July 03, 2017 13:26 - CONCLUSION: 1. Apical thinning versus old apical infarct. 2. No reversibility to suggest ischemia. 3. Adequate wall motion throughout with an estimated ejection fraction of 61%% RISK CATEGORY: Low (<1%% Annual Mortality Rate) Yamil Pozo MD Chest CT 06/24/17 0000 Signed Impressions: Service Date/Time: Saturday, June 24, 2017 16:21 - CONCLUSION: Areas of scarring in the lungs with COPD and scattered tiny nodules most likely benign, repeat noncontrast chest CT is suggested in 6 months as a conservative follow up. Sujit Bunch MD Abdomen X-Ray 06/21/17 0000 Signed Impressions: Service Date/Time: Wednesday, June 21, 2017 18:55 - CONCLUSION: No acute disease. Joaquin Freed MD Tibia/Fibula X-Ray 06/13/17 0000 Signed Impressions: Service Date/Time: Tuesday, June 13, 2017 20:40 - CONCLUSION: 1. Ulceration at the lateral leg with soft tissue swelling. No bony abnormality. Kostas Rosado MD Objective Remarks GENERAL: NAD, AAOx3 SKIN: Patient has erythematous rash through out anterior and posterior truck as well as arms and upper legs- less reddened today. Patient has tenia in bilateral groin and gluteal cleft. Also skin breakdown on bilateral buttock. CARDIO: Regular RESP: CTA bilaterally. ABD: Decreased BS, soft, distended, mild diffuse tenderness EXT: Wet to dry dressing in place at RLE, dried flaking skin on LLE and 1+ edema Procedures Pt underwent surgical debridement with wound vac placement on 06/15/[address] Clark - Pt underwent a vac change in OR on 06/17/17, 06/19, 06/21, 06/23, 06/26 - Pt has wound vac change at bedside on 06/30/17, 07/04/17 and recommended for continued wound vac changes on Tuesdays and Fridays A/P Problem List: (1) Open leg wound ICD Codes: S81.809A - Unspecified open wound, unspecified lower leg, initial encounter Status: Acute Plan: RLE nonhealing wound - Patient with large, necrotic open wound right lower extremity x 2 months. - Wound culture growing gram negative rods - Blood cultures with no growth - Pt has been started on Zosyn and Vancomycin - General Surgery is following - Pt underwent surgical debridement with wound vac placement on 06/15/[address] Clark - Pt underwent a vac change on 06/17/17, 06/19, 06/21, 06/23, 06/26 - wound VAC with PO Dilaudid on 07/07/17 - Pt was very painful with bedside wound VAC change 07/07 despite PO Dilaudid - Case d/w General Surgery, Dr. Knight (07/07). Dressing changed to wet-to -dry - CTA with runoff (07/08) Moderate to severe atherosclerotic disease of aorta without aneurysm. Blood flow in both lower extremities is maintained with good perfusion appreciated to the distal legs bilaterally. No high-grade stenosis or occlusion is visualized. The nonvascular structures visualized demonstrate no acute finding. - Pt with B/L LE edema and weeping, improving. - PO lasix stopped 07/08, contributing to rash? Will observe. Pt may need to have diuretic resumed. - Patient creatinine increased to 1.6 (07/09), 2.2 (07/10) patient had contrast study 07/08. Repeat labs on 07/11 with Cr 2.35 - will gingerly give IVFs - Awaiting repeat BMP today & observe Creatinine - Pain control PRN - Constipation precautions, Vivian-Colace BID, MOM PRB, Dulcolax PRN - KUB today for increased abd distension and pain - Supportive care - SCD on non-surgical leg UTI due to Klebsiella species - Urine Cx (07/08) --> klebsiella & e. coli - IV Rocephin started on 07/10 - WBC 14.5 (07/11) - repeat CBC pending Rash - appreciate input from ELE[facility], Dr. Choi - rash improving from 07/08, less red. - Unlikely to be infectious - drug allergy rash? Unclear which medication might be the trigger - Lasix stopped 07/07 - one time dose Solu Medrol 125 mg given on 07/11 - rash continues to improve - supportive care Tachycardia - Outpt 2D echo (04/03/17) --> Mild concentric LVH, Estimated EF 50%, Grade 1 diastolic dysfunction, Moderate mitral valve regurg, Mild tricuspid valve regurg, Normal estimated PA pressure, 32.7mmHg - Telemetry with noted sinus tachycardia - EKG in the ED noted sinus tachycardia - repeat EKG (06/23) --> sinus tachycardia, 109, with occasional PVC - continue Ultram PRN. add acetaminophen scheduled. Patient does not want stronger pain medication. She is fearful of sedation/side effects - place continuous telemetry for closer monitoring of HR and rhythm - suspect pain, anxiety, COPD, and prednisone are all contributing - Lexiscan requested per Dr. Parsons, but patient refused at that time - Pt has run VT on 07/02. Cardiology consulted. - Lexiscan (07/02) --> reviewed with Radiology. EF 61%, subtle inferior/ basilar wall reversible defect - echocardiogram (07/04) --> EF 60-65% - metoprolol 25mg BID COPD/Chemical exposure hx in 08/2016 - PFT in 2016 with reported FEV1 of 0.51, 20% of predicted - Continue Symbicort BID and Combivent QID - Pt was given a dose of IV Solu-Medrol at admission - Prednisone 20mg alt with 10mg every other day -> (06/25) transitioned to Prednisone 10 mg daily - prednisone decreased to 5mg daily (07/04) - Duonebs were given q6h while awake - Pt refused Budesonide Nebs BID - Supplemental O2 as needed - repeat CXR (06/24) hyperinflation without infiltrate. Small nodule RUL recommend outpatient follow up CT - CT chest without contrast (06/24) Areas of scarring in the lungs with COPD and scattered tiny nodules most likely benign, repeat noncontrast chest CT is suggested in 6 months as a conservative follow up Hyperglycemia - Pt likely with steroid induced hyperglycemia with her prolonged steroid use - Hgb A1C is 8.6% - She has been having some intermittent issues with hypoglycemia - NovoLog SSI Dc'd (06/22) - Accu checks ACHS Decreased appetite Remeron 30 mg PO QHS started Multivitamin started Edema of upper extremity - increased edema of RUE - UE US neg for DVT - elevate RUE - see above COPD (chronic obstructive pulmonary disease) - Chronic Hyperglycemia - Chronic Tinea - bilateral groin and gluteal cleft - nystatin to affected area Buttock wound - open skin breakdown buttock area - antifungal/barrier cream to buttock area - keep area clean and dry - specialty bed to relieve pressure (2) UTI due to Klebsiella species ICD Codes: N39.0 - Urinary tract infection, site not specified; B96.1 - Klebsiella pneumoniae [K. pneumoniae] as the cause of diseases classified elsewhere Status: Acute Plan: see above (3) Rash ICD Codes: R21 - Rash and other nonspecific skin eruption Plan: see above (4) Edema of upper extremity ICD Codes: R60.0 - Localized edema Status: Acute Plan: see above (5) COPD (chronic obstructive pulmonary disease) ICD Codes: J44.9 - Chronic obstructive pulmonary disease, unspecified Status: Chronic (6) Hyperglycemia ICD Codes: R73.9 - Hyperglycemia, unspecified Status: Chronic (7) Tinea ICD Codes: B35.9 - Dermatophytosis, unspecified (8) Buttock wound ICD Codes: S31.809A - Unspecified open wound of unspecified buttock, initial encounter Assessment and Plan Patient examined. Assessment and plan formulated with Yomaira Lemus PA-C. I agree with the above. feels abdomen pain /constipation. kub and laxatives resume her nebs for copd. drug rash overall looks better. wound care to rle abx for uti plan for snf. Problem Qualifiers (1) Open leg wound: Qualified Codes: S81.801A - Unspecified open wound, right lower leg, initial encounter Yomaira Lemus Jul 12, 2017 10:48 Ellis Eason MD Jul 12, 2017 11:49
[2017-07-12 12:06] LABS: AUTOMATED NEUTROPHIL # 14.3 TH/MM3 (1.8-7.7); BASOPHIL % 0.2 % (0.0-2.0); EOSINOPHIL % 0.1 % (0.0-4.0); HEMOGLOBIN 8.7 GM/DL (11.6-15.3); LYMPH % 7.2 % (9.0-44.0); LYMPHOCYTE # 1.1 TH/MM3 (1.0-4.8); MEAN CELL VOLUME 89.4 FL (80.0-100.0); MEAN CORPUSCULAR HEMOGLOBIN 29.9 PG (27.0-34.0); MEAN CORPUSCULAR HGB CONC 33.4 % (32.0-36.0); MEAN PLATELET VOLUME 6.5 FL (7.0-11.0); MONOCYTE # 0.5 TH/MM3 (0-0.9); NEUT % 89.5 % (16.0-70.0); PLATELET COUNT 351 TH/MM3 (150-450); RED BLOOD COUNT 2.91 MIL/MM3 (4.00-5.30); RED CELL DISTRIBUTION WIDTH 15.3 % (11.6-17.2); WHITE BLOOD COUNT 15.9 TH/MM3 (4.0-11.0)
[2017-07-12 12:41] LABS: BICARBONATE 26.6 MEQ/L (21.0-32.0); CALCIUM 8.3 MG/DL (8.5-10.1); CREATININE 2.36 MG/DL (0.50-1.00)
[2017-07-12] MEDS: MAGNESIUM HYDROXIDE SUSP 30 ML CUP PO PRN (12:55)
[2017-07-12] MEDS: cefTRIAXone INJ 1,000 MG in SODIUM CHLORIDE 0.9% INJ 100 ML IV SCH (12:55)
[2017-07-12 13:28] LABS: BANDS 13 % (0-6); CORRECTED NUCLEATED RBC 1 /100 WBC (0-0); LYMPHOCYTES 5 % (9-44); METAMYELOCYTES 2 % (0-1); MYELOCYTES 2 % (0-0); NEUTROPHIL # MANUAL DIFF 14.9 TH/MM3 (1.8-7.7); NUCLEATED RED BLOOD CELL 1 (0-0); POLYS (SEG NEUTROPHILS) 76 % (16-70); PROMYELOCYTES 1 % (0-0)
[2017-07-12 13:34] LABS: OVALOCYTES 1+ (NORMAL)
[2017-07-12 13:36] LABS: TOXIC GRANULATION 1+ (NORMAL)
[2017-07-12 14:12] LABS: BICARBONATE 26.4 MEQ/L (21.0-32.0); CALCIUM 8.3 MG/DL (8.5-10.1); CREATININE 2.37 MG/DL (0.50-1.00)
[2017-07-12] MEDS ORDERED: MAGNESIUM CITRATE SOLN 300 ML BTL PO ONE (14:45)
--- NOTE | 2017-07-12 15:05 | RADRPT ---
EXAM DATE/TIME: 07/12/2017 14:18 [facility] COMPARISON: ABDOMEN KUB ONLY, June 21, 2017, 18:55. INDICATIONS : Abdomen pain. MEDICAL HISTORY : Cardiovascular disease. Chronic obstructive pulmonary disease SURGICAL HISTORY : Tubal ligation. Tonsillectomy. Appendectomy. Bowel resection. Right breast lumpectomy ENCOUNTER: Subsequent ACUITY: 2 days PAIN SCORE: 8/10 LOCATION: Bilateral abdomen FINDINGS: Supine view of the abdomen was performed. The abdominal bowel gas pattern is normal. No abnormal ma sses, calcifications, or organomegaly is seen. The osseous structures are unremarkable. CONCLUSION: 1. No evidence of obstruction. Saleem Wang MD on July 12, 2017 at 15:03 Board Certified Radiologist. This report was verified electronically.
[2017-07-12] MEDS: RESP: ALBUTEROL 2.5 MG/IPRATROPIUM 0.5 MG NEB (SCH) NEB ×2 (16:00→21:34)
[2017-07-12] MEDS: REMOVE OLD PATCH T-DERMAL SCH (21:00)
[2017-07-13] VITALS (10 sets, daily range): BP systolic 109–123; BP diastolic 62–66; PULSE 74–100; RESP 18–20; TEMP 95.9–98.1; O2SAT 97–100
[2017-07-13] MEDS: RESP: ALBUTEROL 2.5 MG/IPRATROPIUM 0.5 MG NEB (SCH) NEB ×4 (03:27→20:04)
[2017-07-13] MEDS: NYSTATIN 100,000 U/GM PWD 15 GM BTL TOPICAL SCH ×3 (04:59→21:59)
--- NOTE | 2017-07-13 09:34 | HHI.PR ---
Subjective Remarks Pt had multiple BMs last night after drinking the Mag Citrate Her abdomen feels less distended today Objective Vitals Vital Signs Date Time Temp Pulse Resp B/P (MAP) Pulse Ox O2 Delivery O2 Flow Rate FiO2 07/13/17 07:38 97.5 84 18 115/62 (79) 100 07/13/17 04:00 96.1 85 19 110/64 (79) 97 07/13/17 04:00 74 07/13/17 00:00 95.9 82 19 110/64 (79) 97 07/13/17 00:00 81 07/12/17 21:34 98 Nasal Cannula 2.00 07/12/17 20:00 95.6 85 19 114/66 (82) 96 07/12/17 20:00 114 07/12/17 20:00 Nasal Cannula 2.00 Humidified 07/12/17 16:00 96.1 85 20 119/78 (92) 98 07/12/17 12:00 97.0 79 18 113/73 (86) 95 Result Diagram: 07/12/17 1200 07/12/17 1310 Other Results Laboratory Tests Test 07/12/17 12:00 07/12/17 13:10 White Blood Count 15.9 TH/MM3 Red Blood Count 2.91 MIL/MM3 Hemoglobin 8.7 GM/DL Hematocrit 26.0 % Mean Corpuscular Volume 89.4 FL Mean Corpuscular Hemoglobin 29.9 PG Mean Corpuscular Hemoglobin Concent 33.4 % Red Cell Distribution Width 15.3 % Platelet Count 351 TH/MM3 Mean Platelet Volume 6.5 FL Neutrophils (%) (Auto) 89.5 % Lymphocytes (%) (Auto) 7.2 % Monocytes (%) (Auto) 3.0 % Eosinophils (%) (Auto) 0.1 % Basophils (%) (Auto) 0.2 % Neutrophils # (Auto) 14.3 TH/MM3 Lymphocytes # (Auto) 1.1 TH/MM3 Monocytes # (Auto) 0.5 TH/MM3 Eosinophils # (Auto) 0.0 TH/MM3 Basophils # (Auto) 0.0 TH/MM3 CBC Comment AUTO DIFF Differential Total Cells Counted 100 Neutrophils % (Manual) 76 % Band Neutrophils % 13 % Lymphocytes % 5 % Eosinophils % 1 % Neutrophils # (Manual) 14.9 TH/MM3 Metamyelocytes 2 % Myelocytes 2 % Promyelocytes 1 % Nucleated Red Blood Cells 1 /100 WBC Differential Comment FINAL DIFF MANUAL Toxic Granulation 1+ Platelet Estimate NORMAL Platelet Morphology Comment NORMAL Basophilic Stippling FAINT Ovalocytes 1+ Blood Urea Nitrogen 29 MG/DL 29 MG/DL Creatinine 2.36 MG/DL 2.37 MG/DL Random Glucose 137 MG/DL 123 MG/DL Calcium Level 8.3 MG/DL 8.3 MG/DL Sodium Level 137 MEQ/L 136 MEQ/L Potassium Level 5.1 MEQ/L 5.2 MEQ/L Chloride Level 102 MEQ/L 102 MEQ/L Carbon Dioxide Level 26.6 MEQ/L 26.4 MEQ/L Anion Gap 8 MEQ/L 8 MEQ/L Estimat Glomerular Filtration Rate 21 ML/MIN 20 ML/MIN Imaging Last Impressions Aorta w/Runoff CTA 07/08/17 0000 Signed Impressions: Service Date/Time: Saturday, July 08, 2017 21:18 - CONCLUSION: 1. Moderate to severe atherosclerotic disease of aorta without aneurysm. Blood flow in both lower extremities is maintained with good perfusion appreciated to the distal legs bilaterally. No high-grade stenosis or occlusion is visualized. 2. The nonvascular structures visualized demonstrate no acute finding. Pollo Mccabe MD Chest X-Ray 07/07/17 0000 Signed Impressions: Service Date/Time: Friday, July 07, 2017 17:08 - CONCLUSION: Mild compensated cardiomegaly. Gautam Sánchez MD FACR Upper Extremity Ultrasound 07/06/17 0000 Signed Impressions: Service Date/Time: June 20:27 - CONCLUSION: 1. Negative for deep venous thrombosis in the upper extremities. Right IJ line present. Kostas Rosado MD Myocardial Perfusion Scan Nuc Med 07/03/17 0000 Signed Impressions: Service Date/Time: Monday, July 03, 2017 13:26 - CONCLUSION: 1. Apical thinning versus old apical infarct. 2. No reversibility to suggest ischemia. 3. Adequate wall motion throughout with an estimated ejection fraction of 61%% RISK CATEGORY: Low (<1%% Annual Mortality Rate) Yamil Pozo MD Chest CT 06/24/17 0000 Signed Impressions: Service Date/Time: Saturday, June 24, 2017 16:21 - CONCLUSION: Areas of scarring in the lungs with COPD and scattered tiny nodules most likely benign, repeat noncontrast chest CT is suggested in 6 months as a conservative follow up. Sujit Bunch MD Abdomen X-Ray 06/21/17 0000 Signed Impressions: Service Date/Time: Wednesday, June 21, 2017 18:55 - CONCLUSION: No acute disease. Joaquin Freed MD Tibia/Fibula X-Ray 06/13/17 0000 Signed Impressions: Service Date/Time: Tuesday, June 13, 2017 20:40 - CONCLUSION: 1. Ulceration at the lateral leg with soft tissue swelling. No bony abnormality. Kostas Rosado MD Objective Remarks GENERAL: NAD, AAOx3 SKIN: Patient has erythematous rash through out anterior and posterior truck as well as arms and upper legs- less reddened today. Patient has tenia in bilateral groin and gluteal cleft. Also skin breakdown on bilateral buttock. CARDIO: Regular RESP: CTA bilaterally. ABD: Decreased BS, soft, distended, mild diffuse tenderness EXT: Wet to dry dressing in place at RLE, dried flaking skin on LLE and 1+ edema Procedures Pt underwent surgical debridement with wound vac placement on 06/15/[address] Clark - Pt underwent a vac change in OR on 06/17/17, 06/19, 06/21, 06/23, 06/26 - Pt has wound vac change at bedside on 06/30/17, 07/04/17 and recommended for continued wound vac changes on Tuesdays and Fridays A/P Problem List: (1) Open leg wound ICD Codes: S81.809A - Unspecified open wound, unspecified lower leg, initial encounter Status: Acute Plan: RLE nonhealing wound - Patient with large, necrotic open wound right lower extremity x 2 months. - Wound culture growing gram negative rods - Blood cultures with no growth - Pt has been started on Zosyn and Vancomycin - General Surgery is following - Pt underwent surgical debridement with wound vac placement on 06/15/[address] Clark - Pt underwent a vac change on 06/17/17, 06/19, 06/21, 06/23, 06/26 - wound VAC with PO Dilaudid on 07/07/17 - Pt was very painful with bedside wound VAC change 07/07 despite PO Dilaudid - Case d/w General Surgery, Dr. Knight (07/07). Dressing changed to wet-to -dry - CTA with runoff (07/08) Moderate to severe atherosclerotic disease of aorta without aneurysm. Blood flow in both lower extremities is maintained with good perfusion appreciated to the distal legs bilaterally. No high-grade stenosis or occlusion is visualized. The nonvascular structures visualized demonstrate no acute finding. - Pt with B/L LE edema and weeping, improving. - PO lasix stopped 07/08, contributing to rash? Will observe. Pt may need to have diuretic resumed. - Patient creatinine increased to 1.6 (07/09), 2.2 (07/10) patient had contrast study 07/08. Repeat labs on 07/11 with Cr 2.35 - will gingerly give IVFs - Awaiting repeat BMP today & observe Creatinine - Pain control PRN - Constipation precautions, Vivian-Colace BID, MOM PRB, Dulcolax PRN - KUB (07/12) without any evidence of obstruction. - Pt was given Mag Citrate and had multiple BMs last night. - Supportive care - SCD on non-surgical leg UTI due to Klebsiella species - Urine Cx (07/08) --> klebsiella & e. coli - IV Rocephin started on 07/10 - WBC 15.9 (07/12) - repeat CBC pending Rash - appreciate input from ID, Dr. Choi - rash improving from 07/08, less red. - Unlikely to be infectious - drug allergy rash? Unclear which medication might be the trigger - Lasix stopped 07/07 - one time dose Solu Medrol 125 mg given on 07/11 - rash continues to improve - supportive care Tachycardia - Outpt 2D echo (04/03/17) --> Mild concentric LVH, Estimated EF 50%, Grade 1 diastolic dysfunction, Moderate mitral valve regurg, Mild tricuspid valve regurg, Normal estimated PA pressure, 32.7mmHg - Telemetry with noted sinus tachycardia - EKG in the ED noted sinus tachycardia - repeat EKG (06/23) --> sinus tachycardia, 109, with occasional PVC - continue Ultram PRN. add acetaminophen scheduled. Patient does not want stronger pain medication. She is fearful of sedation/side effects - place continuous telemetry for closer monitoring of HR and rhythm - suspect pain, anxiety, COPD, and prednisone are all contributing - Lexiscan requested per Dr. Parsons, but patient refused at that time - Pt has run VT on 07/02. Cardiology consulted. - Lexiscan (07/02) --> reviewed with Radiology. EF 61%, subtle inferior/ basilar wall reversible defect - echocardiogram (07/04) --> EF 60-65% - metoprolol 25mg BID COPD/Chemical exposure hx in 08/2016 - PFT in 2017 with reported FEV1 of 0.51, 20% of predicted - Continue Symbicort BID and Combivent QID - Pt was given a dose of IV Solu-Medrol at admission - Prednisone 20mg alt with 10mg every other day -> (06/25) transitioned to Prednisone 10 mg daily - prednisone decreased to 5mg daily (07/04) - Duonebs were given q6h while awake - Pt refused Budesonide Nebs BID - Supplemental O2 as needed - repeat CXR (06/24) hyperinflation without infiltrate. Small nodule RUL recommend outpatient follow up CT - CT chest without contrast (06/24) Areas of scarring in the lungs with COPD and scattered tiny nodules most likely benign, repeat noncontrast chest CT is suggested in 6 months as a conservative follow up Hyperglycemia - Pt likely with steroid induced hyperglycemia with her prolonged steroid use - Hgb A1C is 8.6% - She has been having some intermittent issues with hypoglycemia - NovoLog SSI Dc'd (06/22) - Accu checks ACHS Decreased appetite - Remeron 30 mg PO QHS started - Multivitamin started Edema of upper extremity - increased edema of RUE - UE US neg for DVT - elevate RUE - see above COPD (chronic obstructive pulmonary disease) - Chronic Hyperglycemia - Chronic Tinea - bilateral groin and gluteal cleft - nystatin to affected area Buttock wound - open skin breakdown buttock area - antifungal/barrier cream to buttock area - keep area clean and dry - specialty bed to relieve pressure (2) UTI due to Klebsiella species ICD Codes: N39.0 - Urinary tract infection, site not specified; B96.1 - Klebsiella pneumoniae [K. pneumoniae] as the cause of diseases classified elsewhere Status: Acute Plan: see above (3) Rash ICD Codes: R21 - Rash and other nonspecific skin eruption Plan: see above (4) Edema of upper extremity ICD Codes: R60.0 - Localized edema Status: Acute Plan: see above (5) COPD (chronic obstructive pulmonary disease) ICD Codes: J44.9 - Chronic obstructive pulmonary disease, unspecified Status: Chronic (6) Hyperglycemia ICD Codes: R73.9 - Hyperglycemia, unspecified Status: Chronic (7) Tinea ICD Codes: B35.9 - Dermatophytosis, unspecified (8) Buttock wound ICD Codes: S31.809A - Unspecified open wound of unspecified buttock, initial encounter Assessment and Plan Patient examined. Assessment and plan formulated with Yomaira Lemus PA-C. I agree with the above. constipation resolved. laxatives. ongoing diarrhea now. esvin. contrast nephropathy. r/o AIN. labs pending abx for uti wound care. Problem Qualifiers (1) Open leg wound: Qualified Codes: S81.801A - Unspecified open wound, right lower leg, initial encounter Yomaira Lemus Jul 13, 2017 09:34 Ellis Eason MD Jul 13, 2017 12:40
[2017-07-13] MEDS: METOPROLOL TARTRATE 25 MG TAB PO SCH ×2 (10:39→20:21)
[2017-07-13] MEDS: BUDESONIDE-FORMOTEROL 80/4.5 MCG INHALER INH SCH ×2 (10:39→20:21)
[2017-07-13] MEDS: cefTRIAXone INJ 1,000 MG in SODIUM CHLORIDE 0.9% INJ 100 ML IV SCH (10:39)
[2017-07-13] MEDS: DOCUSATE SODIUM 50 MG/SENNA 8.6 MG TAB PO SCH ×2 (10:39→21:00)
[2017-07-13] MEDS: predniSONE 5 MG TAB PO SCH (10:39)
[2017-07-13] MEDS: MULTIVITAMIN TAB PO SCH (10:39)
[2017-07-13 14:58] LABS: AUTOMATED NEUTROPHIL # 14.1 TH/MM3 (1.8-7.7); BASOPHIL % 0.2 % (0.0-2.0); EOSINOPHIL # 0.2 TH/MM3 (0-0.4); EOSINOPHIL % 1.2 % (0.0-4.0); HEMATOCRIT 27.1 % (35.0-46.0); HEMOGLOBIN 8.7 GM/DL (11.6-15.3); LYMPH % 5.7 % (9.0-44.0); LYMPHOCYTE # 0.9 TH/MM3 (1.0-4.8); MEAN CELL VOLUME 90.2 FL (80.0-100.0); MEAN CORPUSCULAR HEMOGLOBIN 29.1 PG (27.0-34.0); MEAN CORPUSCULAR HGB CONC 32.2 % (32.0-36.0); NEUT % 86.9 % (16.0-70.0); PLATELET COUNT 386 TH/MM3 (150-450); RED CELL DISTRIBUTION WIDTH 15.9 % (11.6-17.2); WHITE BLOOD COUNT 16.2 TH/MM3 (4.0-11.0)
[2017-07-13 15:45] LABS: CALCIUM 8.2 MG/DL (8.5-10.1); CREATININE 2.19 MG/DL (0.50-1.00)
[2017-07-13 15:59] LABS: BANDS 9 % (0-6); LYMPHOCYTES 7 % (9-44); MONOCYTES 6 % (0-8); POLYS (SEG NEUTROPHILS) 71 % (16-70); PROMYELOCYTES 1 % (0-0)
[2017-07-13 16:01] LABS: METAMYELOCYTES 5 % (0-1); MYELOCYTES 1 % (0-0); NEUTROPHIL # MANUAL DIFF 14.1 TH/MM3 (1.8-7.7)
[2017-07-13 16:02] LABS: OVALOCYTES 2+ (NORMAL)
[2017-07-13] MEDS: REMOVE OLD PATCH T-DERMAL SCH (20:22)
[2017-07-14] VITALS (11 sets, daily range): BP systolic 91–122; BP diastolic 55–74; PULSE 72–108; RESP 18–20; TEMP 95.8–97.9; O2SAT 94–100
[2017-07-14 04:42] LABS: AUTOMATED NEUTROPHIL # 7.9 TH/MM3 (1.8-7.7); BASOPHIL # 0.1 TH/MM3 (0-0.2); BASOPHIL % 0.5 % (0.0-2.0); EOSINOPHIL # 0.5 TH/MM3 (0-0.4); EOSINOPHIL % 4.3 % (0.0-4.0); HEMATOCRIT 23.9 % (35.0-46.0); LYMPHOCYTE # 1.4 TH/MM3 (1.0-4.8); MEAN CELL VOLUME 89.1 FL (80.0-100.0); MEAN CORPUSCULAR HEMOGLOBIN 29.9 PG (27.0-34.0); MEAN CORPUSCULAR HGB CONC 33.6 % (32.0-36.0); MEAN PLATELET VOLUME 6.8 FL (7.0-11.0); MONO % 7.9 % (0.0-8.0); MONOCYTE # 0.8 TH/MM3 (0-0.9); NEUT % 74.3 % (16.0-70.0); PLATELET COUNT 334 TH/MM3 (150-450); RED BLOOD COUNT 2.69 MIL/MM3 (4.00-5.30); RED CELL DISTRIBUTION WIDTH 15.9 % (11.6-17.2); WHITE BLOOD COUNT 10.6 TH/MM3 (4.0-11.0)
[2017-07-14 05:01] LABS: BICARBONATE 29.3 MEQ/L (21.0-32.0); CALCIUM 8.1 MG/DL (8.5-10.1); CREATININE 1.97 MG/DL (0.50-1.00); MAGNESIUM 2.8 MG/DL (1.5-2.5)
[2017-07-14] MEDS: NYSTATIN 100,000 U/GM PWD 15 GM BTL TOPICAL SCH ×3 (06:00→21:26)
[2017-07-14 07:12] LABS: BANDS 5 % (0-6); LYMPHOCYTES 17 % (9-44); METAMYELOCYTES 1 % (0-1); MONOCYTES 8 % (0-8); MYELOCYTES 2 % (0-0); NEUTROPHIL # MANUAL DIFF 7.5 TH/MM3 (1.8-7.7); OVALOCYTES 1+ (NORMAL); POLYS (SEG NEUTROPHILS) 63 % (16-70)
[2017-07-14] MEDS: DOCUSATE SODIUM 50 MG/SENNA 8.6 MG TAB PO SCH ×2 (09:00→21:00)
[2017-07-14] MEDS: predniSONE 5 MG TAB PO SCH (09:26)
[2017-07-14] MEDS: MULTIVITAMIN TAB PO SCH (09:26)
[2017-07-14] MEDS: METOPROLOL TARTRATE 25 MG TAB PO SCH ×2 (09:26→21:26)
[2017-07-14] MEDS: BUDESONIDE-FORMOTEROL 80/4.5 MCG INHALER INH SCH ×2 (09:27→21:26)
--- NOTE | 2017-07-14 09:33 | HHI.PR ---
Subjective Remarks Pt had one loose stool during the day yesterday but none since then Her abdomen is much less distended Pt tolerating oral intake She complains of pain in her feet when trying to stand up Objective Vitals Vital Signs Date Time Temp Pulse Resp B/P (MAP) Pulse Ox O2 Delivery O2 Flow Rate FiO2 07/14/17 04:00 97.9 86 20 109/56 (73) 98 07/14/17 04:00 87 07/14/17 00:00 96.4 85 20 110/56 (74) 99 07/14/17 00:00 85 07/13/17 20:23 Nasal Cannula 2.00 07/13/17 20:15 87 07/13/17 20:04 97 Nasal Cannula 3.00 07/13/17 20:00 96.9 88 20 116/62 (80) 99 07/13/17 16:00 98.1 100 18 109/64 (79) 97 07/13/17 13:22 100 Nasal Cannula 3.00 07/13/17 12:00 97.8 95 20 123/66 (85) 98 07/13/17 10:24 Nasal Cannula 2.00 Humidified Result Diagram: 07/14/17 0400 07/14/17 0400 Other Results Laboratory Tests Test 07/12/17 12:00 07/12/17 13:10 07/13/17 13:26 07/14/17 04:00 White Blood Count 15.9 TH/MM3 16.2 TH/MM3 10.6 TH/MM3 Red Blood Count 2.91 MIL/MM3 3.00 MIL/MM3 2.69 MIL/MM3 Hemoglobin 8.7 GM/DL 8.7 GM/DL 8.0 GM/DL Hematocrit 26.0 % 27.1 % 23.9 % Mean Corpuscular Volume 89.4 FL 90.2 FL 89.1 FL Mean Corpuscular Hemoglobin 29.9 PG 29.1 PG 29.9 PG Mean Corpuscular Hemoglobin Concent 33.4 % 32.2 % 33.6 % Red Cell Distribution Width 15.3 % 15.9 % 15.9 % Platelet Count 351 TH/MM3 386 TH/MM3 334 TH/MM3 Mean Platelet Volume 6.5 FL 7.0 FL 6.8 FL Neutrophils (%) (Auto) 89.5 % 86.9 % 74.3 % Lymphocytes (%) (Auto) 7.2 % 5.7 % 13.0 % Monocytes (%) (Auto) 3.0 % 6.0 % 7.9 % Eosinophils (%) (Auto) 0.1 % 1.2 % 4.3 % Basophils (%) (Auto) 0.2 % 0.2 % 0.5 % Neutrophils # (Auto) 14.3 TH/MM3 14.1 TH/MM3 7.9 TH/MM3 Lymphocytes # (Auto) 1.1 TH/MM3 0.9 TH/MM3 1.4 TH/MM3 Monocytes # (Auto) 0.5 TH/MM3 1.0 TH/MM3 0.8 TH/MM3 Eosinophils # (Auto) 0.0 TH/MM3 0.2 TH/MM3 0.5 TH/MM3 Basophils # (Auto) 0.0 TH/MM3 0.0 TH/MM3 0.1 TH/MM3 CBC Comment AUTO DIFF AUTO DIFF AUTO DIFF Differential Total Cells Counted 100 100 100 Neutrophils % (Manual) 76 % 71 % 63 % Band Neutrophils % 13 % 9 % 5 % Lymphocytes % 5 % 7 % 17 % Eosinophils % 1 % 4 % Neutrophils # (Manual) 14.9 TH/MM3 14.1 TH/MM3 7.5 TH/MM3 Metamyelocytes 2 % 5 % 1 % Myelocytes 2 % 1 % 2 % Promyelocytes 1 % 1 % Nucleated Red Blood Cells 1 /100 WBC Differential Comment FINAL DIFF MANUAL FINAL DIFF MANUAL FINAL DIFF MANUAL Toxic Granulation 1+ Platelet Estimate NORMAL NORMAL NORMAL Platelet Morphology Comment NORMAL NORMAL NORMAL Basophilic Stippling FAINT Ovalocytes 1+ 2+ 1+ Blood Urea Nitrogen 29 MG/DL 29 MG/DL 27 MG/DL 25 MG/DL Creatinine 2.36 MG/DL 2.37 MG/DL 2.19 MG/DL 1.97 MG/DL Random Glucose 137 MG/DL 123 MG/DL 101 MG/DL 74 MG/DL Calcium Level 8.3 MG/DL 8.3 MG/DL 8.2 MG/DL 8.1 MG/DL Sodium Level 137 MEQ/L 136 MEQ/L 140 MEQ/L 138 MEQ/L Potassium Level 5.1 MEQ/L 5.2 MEQ/L 4.7 MEQ/L 4.0 MEQ/L Chloride Level 102 MEQ/L 102 MEQ/L 105 MEQ/L 103 MEQ/L Carbon Dioxide Level 26.6 MEQ/L 26.4 MEQ/L 30.0 MEQ/L 29.3 MEQ/L Anion Gap 8 MEQ/L 8 MEQ/L 5 MEQ/L 6 MEQ/L Estimat Glomerular Filtration Rate 21 ML/MIN 20 ML/MIN 22 ML/MIN 25 ML/MIN Monocytes % 6 % 8 % Magnesium Level 3.0 MG/DL 2.8 MG/DL Polychromasia 2.0 % Imaging Last Impressions Aorta w/Runoff CTA 07/08/17 0000 Signed Impressions: Service Date/Time: Saturday, July 08, 2017 21:18 - CONCLUSION: 1. Moderate to severe atherosclerotic disease of aorta without aneurysm. Blood flow in both lower extremities is maintained with good perfusion appreciated to the distal legs bilaterally. No high-grade stenosis or occlusion is visualized. 2. The nonvascular structures visualized demonstrate no acute finding. Pollo Mccabe MD Chest X-Ray 07/07/17 0000 Signed Impressions: Service Date/Time: Friday, July 07, 2017 17:08 - CONCLUSION: Mild compensated cardiomegaly. Gautam Sánchez MD FACR Upper Extremity Ultrasound 07/06/17 0000 Signed Impressions: Service Date/Time: June 20:27 - CONCLUSION: 1. Negative for deep venous thrombosis in the upper extremities. Right IJ line present. Kostas Rosado MD Myocardial Perfusion Scan Nuc Med 07/03/17 0000 Signed Impressions: Service Date/Time: Monday, July 03, 2017 13:26 - CONCLUSION: 1. Apical thinning versus old apical infarct. 2. No reversibility to suggest ischemia. 3. Adequate wall motion throughout with an estimated ejection fraction of 61%% RISK CATEGORY: Low (<1%% Annual Mortality Rate) Yamil Pozo MD Chest CT 06/24/17 0000 Signed Impressions: Service Date/Time: Saturday, June 24, 2017 16:21 - CONCLUSION: Areas of scarring in the lungs with COPD and scattered tiny nodules most likely benign, repeat noncontrast chest CT is suggested in 6 months as a conservative follow up. Sujit Bunch MD Abdomen X-Ray 06/21/17 0000 Signed Impressions: Service Date/Time: Wednesday, June 21, 2017 18:55 - CONCLUSION: No acute disease. Joaquin Freed MD Tibia/Fibula X-Ray 06/13/17 0000 Signed Impressions: Service Date/Time: Tuesday, June 13, 2017 20:40 - CONCLUSION: 1. Ulceration at the lateral leg with soft tissue swelling. No bony abnormality. Kostas Rosado MD Objective Remarks GENERAL: NAD, AAOx3 SKIN: Patient has erythematous rash through out anterior and posterior truck as well as arms and upper legs- continuing to improve. Pt with dried and flacking skin on her chest, face, and extremities where the rash was. Patient has tenia in bilateral groin and gluteal cleft. Also skin breakdown on bilateral buttock. CARDIO: Regular RESP: CTA bilaterally. ABD: Decreased BS, soft, distended, mild diffuse tenderness EXT: Wet to dry dressing in place at RLE Procedures Pt underwent surgical debridement with wound vac placement on 06/15/[address] Clark - Pt underwent a vac change in OR on 06/17/17, 06/19, 06/21, 06/23, 06/26 - Pt has wound vac change at bedside on 06/30/17, 07/04/17 and recommended for continued wound vac changes on Tuesdays and Fridays A/P Problem List: (1) Open leg wound ICD Codes: S81.809A - Unspecified open wound, unspecified lower leg, initial encounter Status: Acute Plan: RLE nonhealing wound - Patient with large, necrotic open wound right lower extremity x 2 months. - Wound culture growing gram negative rods - Blood cultures with no growth - Pt has been started on Zosyn and Vancomycin - General Surgery is following - Pt underwent surgical debridement with wound vac placement on 06/15/[address] Clark - Pt underwent a vac change on 06/17/17, 06/19, 06/21, 06/23, 06/26 - wound VAC with PO Dilaudid on 07/07/17 - Pt was very painful with bedside wound VAC change 07/07 despite PO Dilaudid - Case d/w General Surgery, Dr. Knight (07/07). Dressing changed to wet-to -dry - CTA with runoff (07/08) Moderate to severe atherosclerotic disease of aorta without aneurysm. Blood flow in both lower extremities is maintained with good perfusion appreciated to the distal legs bilaterally. No high-grade stenosis or occlusion is visualized. The nonvascular structures visualized demonstrate no acute finding. - Pt with B/L LE edema and weeping, improving. - PO lasix stopped 07/08, contributing to rash? Will observe. Pt may need to have diuretic resumed. - Patient creatinine increased to 1.6 (07/09), 2.2 (07/10) patient had contrast study 07/08. Repeat labs on 07/11 with Cr 2.35 - will gingerly give IVFs - Awaiting repeat BMP today & observe Creatinine - Pain control PRN - Constipation precautions, Vivian-Colace BID, MOM PRB, Dulcolax PRN - KUB (07/12) without any evidence of obstruction. - Pt was given Mag Citrate and had multiple BMs. - Supportive care - SCD on non-surgical leg UTI due to Klebsiella species - Urine Cx (07/08) --> klebsiella & e. coli - IV Rocephin started on 07/10 - WBC 10.6 (07/14) Rash - appreciate input from ID, Dr. Choi - rash improving from 07/08, less red. - Unlikely to be infectious - drug allergy rash? Unclear which medication might be the trigger - Lasix stopped 07/07 - one time dose Solu Medrol 125 mg given on 07/11 - rash continues to improve - supportive care Tachycardia - Outpt 2D echo (04/03/17) --> Mild concentric LVH, Estimated EF 50%, Grade 1 diastolic dysfunction, Moderate mitral valve regurg, Mild tricuspid valve regurg, Normal estimated PA pressure, 32.7mmHg - Telemetry with noted sinus tachycardia - EKG in the ED noted sinus tachycardia - repeat EKG (06/23) --> sinus tachycardia, 109, with occasional PVC - continue Ultram PRN. add acetaminophen scheduled. Patient does not want stronger pain medication. She is fearful of sedation/side effects - place continuous telemetry for closer monitoring of HR and rhythm - suspect pain, anxiety, COPD, and prednisone are all contributing - Lexiscan requested per Dr. Parsons, but patient refused at that time - Pt has run VT on 07/02. Cardiology consulted. - Lexiscan (07/02) --> reviewed with Radiology. EF 61%, subtle inferior/ basilar wall reversible defect - echocardiogram (07/04) --> EF 60-65% - metoprolol 25mg BID COPD/Chemical exposure hx in 08/2016 - PFT in 2017 with reported FEV1 of 0.51, 20% of predicted - Continue Symbicort BID and Combivent QID - Pt was given a dose of IV Solu-Medrol at admission - Prednisone 20mg alt with 10mg every other day -> (06/25) transitioned to Prednisone 10 mg daily - prednisone decreased to 5mg daily (07/04) - Duonebs were given q6h while awake - Pt refused Budesonide Nebs BID - Supplemental O2 as needed - repeat CXR (06/24) hyperinflation without infiltrate. Small nodule RUL recommend outpatient follow up CT - CT chest without contrast (06/24) Areas of scarring in the lungs with COPD and scattered tiny nodules most likely benign, repeat noncontrast chest CT is suggested in 6 months as a conservative follow up Hyperglycemia - Pt likely with steroid induced hyperglycemia with her prolonged steroid use - Hgb A1C is 8.6% - She has been having some intermittent issues with hypoglycemia - NovoLog SSI Dc'd (06/22) - Accu checks ACHS Decreased appetite - Remeron 30 mg PO QHS started - Multivitamin started Edema of upper extremity - Improving edema of RUE - UE US neg for DVT - elevate RUE - see above COPD (chronic obstructive pulmonary disease) - Chronic Hyperglycemia - Chronic Tinea - bilateral groin and gluteal cleft - nystatin to affected area Buttock wound - open skin breakdown buttock area - antifungal/barrier cream to buttock area - keep area clean and dry - specialty bed to relieve pressure Anemia - Pt with a noted continued decrease in her H/H, Hgb 8.0 today - Likely multifactorial, related to acute illness, multiple procedures/ surgeries, frequent blood draws - Transfuse 2 units PRBCs today - Repeat labs in AM (2) UTI due to Klebsiella species ICD Codes: N39.0 - Urinary tract infection, site not specified; B96.1 - Klebsiella pneumoniae [K. pneumoniae] as the cause of diseases classified elsewhere Status: Acute Plan: see above (3) Rash ICD Codes: R21 - Rash and other nonspecific skin eruption Plan: see above (4) Edema of upper extremity ICD Codes: R60.0 - Localized edema Status: Acute Plan: see above (5) COPD (chronic obstructive pulmonary disease) ICD Codes: J44.9 - Chronic obstructive pulmonary disease, unspecified Status: Chronic (6) Hyperglycemia ICD Codes: R73.9 - Hyperglycemia, unspecified Status: Chronic (7) Tinea ICD Codes: B35.9 - Dermatophytosis, unspecified (8) Buttock wound ICD Codes: S31.809A - Unspecified open wound of unspecified buttock, initial encounter (9) Anemia ICD Codes: D64.9 - Anemia, unspecified Assessment and Plan Patient examined. Assessment and plan formulated with Yomaira Lemus PA-C. I agree with the above. constipation resolved esvin. contrast nephropathy. r/o AIN. labs improving symptomatic anemia. hgb 15 down to 8. 2 units. abx for uti wound care. plan for snf ?Monday. Problem Qualifiers (1) Open leg wound: Qualified Codes: S81.801A - Unspecified open wound, right lower leg, initial encounter Yomaira Lemus Jul 14, 2017 09:33 Ellis Eason MD Jul 14, 2017 12:20
[2017-07-14] MEDS: RESP: ALBUTEROL 2.5 MG/IPRATROPIUM 0.5 MG NEB (SCH) NEB ×2 (10:04→19:38)
[2017-07-14] MEDS: cefTRIAXone INJ 1,000 MG in SODIUM CHLORIDE 0.9% INJ 100 ML IV SCH (11:04)
[2017-07-14] MEDS: REMOVE OLD PATCH T-DERMAL SCH (21:00)
[2017-07-15] VITALS (13 sets, daily range): BP systolic 91–121; BP diastolic 52–75; PULSE 76–96; RESP 17–22; TEMP 95.4–98.7; O2SAT 96–100
[2017-07-15] MEDS: NYSTATIN 100,000 U/GM PWD 15 GM BTL TOPICAL SCH ×2 (05:14→20:26)
[2017-07-15] MEDS: RESP: ALBUTEROL 2.5 MG/IPRATROPIUM 0.5 MG NEB (SCH) NEB ×3 (08:18→20:08)
[2017-07-15] MEDS: METOPROLOL TARTRATE 25 MG TAB PO SCH ×2 (08:40→20:24)
[2017-07-15] MEDS: predniSONE 5 MG TAB PO SCH (08:40)
[2017-07-15] MEDS: MULTIVITAMIN TAB PO SCH (08:40)
[2017-07-15] MEDS: BUDESONIDE-FORMOTEROL 80/4.5 MCG INHALER INH SCH ×2 (08:40→20:25)
[2017-07-15] MEDS: DOCUSATE SODIUM 50 MG/SENNA 8.6 MG TAB PO SCH ×2 (08:41→20:24)
--- NOTE | 2017-07-15 10:21 | HHI.PR ---
Subjective Remarks Pt got her 2 units of PRBCs last night She did not sleep well last night One BM yesterday, none so far today Objective Vitals Vital Signs Date Time Temp Pulse Resp B/P (MAP) Pulse Ox O2 Delivery O2 Flow Rate FiO2 07/15/17 08:19 98 Nasal Cannula 2.00 07/15/17 08:00 97.4 92 22 121/75 (90) 100 07/15/17 04:40 97.4 85 20 118/62 99 07/15/17 04:00 97.6 88 20 108/72 (84) 98 07/15/17 03:45 78 07/15/17 02:27 97.0 76 20 103/59 100 07/15/17 02:12 97.3 82 20 107/60 100 07/15/17 01:40 97.7 88 20 102/72 98 07/15/17 00:00 83 07/15/17 00:00 98.7 88 20 108/66 (80) 07/14/17 23:05 97.5 72 20 91/55 100 07/14/17 22:50 97.8 95 20 98/60 100 07/14/17 21:00 Nasal Cannula 2.00 07/14/17 20:30 107 07/14/17 20:00 95.8 108 20 104/70 (81) 96 07/14/17 19:38 97 Nasal Cannula 3.00 07/14/17 16:00 97.1 97 18 109/74 (86) 97 07/14/17 12:00 97.0 103 19 110/69 (83) 99 Result Diagram: 07/14/17 0400 07/14/17 0400 Other Results Laboratory Tests Test 07/13/17 13:26 07/14/17 04:00 White Blood Count 16.2 TH/MM3 10.6 TH/MM3 Red Blood Count 3.00 MIL/MM3 2.69 MIL/MM3 Hemoglobin 8.7 GM/DL 8.0 GM/DL Hematocrit 27.1 % 23.9 % Mean Corpuscular Volume 90.2 FL 89.1 FL Mean Corpuscular Hemoglobin 29.1 PG 29.9 PG Mean Corpuscular Hemoglobin Concent 32.2 % 33.6 % Red Cell Distribution Width 15.9 % 15.9 % Platelet Count 386 TH/MM3 334 TH/MM3 Mean Platelet Volume 7.0 FL 6.8 FL Neutrophils (%) (Auto) 86.9 % 74.3 % Lymphocytes (%) (Auto) 5.7 % 13.0 % Monocytes (%) (Auto) 6.0 % 7.9 % Eosinophils (%) (Auto) 1.2 % 4.3 % Basophils (%) (Auto) 0.2 % 0.5 % Neutrophils # (Auto) 14.1 TH/MM3 7.9 TH/MM3 Lymphocytes # (Auto) 0.9 TH/MM3 1.4 TH/MM3 Monocytes # (Auto) 1.0 TH/MM3 0.8 TH/MM3 Eosinophils # (Auto) 0.2 TH/MM3 0.5 TH/MM3 Basophils # (Auto) 0.0 TH/MM3 0.1 TH/MM3 CBC Comment AUTO DIFF AUTO DIFF Differential Total Cells Counted 100 100 Neutrophils % (Manual) 71 % 63 % Band Neutrophils % 9 % 5 % Lymphocytes % 7 % 17 % Monocytes % 6 % 8 % Neutrophils # (Manual) 14.1 TH/MM3 7.5 TH/MM3 Metamyelocytes 5 % 1 % Myelocytes 1 % 2 % Promyelocytes 1 % Differential Comment FINAL DIFF MANUAL FINAL DIFF MANUAL Platelet Estimate NORMAL NORMAL Platelet Morphology Comment NORMAL NORMAL Ovalocytes 2+ 1+ Blood Urea Nitrogen 27 MG/DL 25 MG/DL Creatinine 2.19 MG/DL 1.97 MG/DL Random Glucose 101 MG/DL 74 MG/DL Calcium Level 8.2 MG/DL 8.1 MG/DL Magnesium Level 3.0 MG/DL 2.8 MG/DL Sodium Level 140 MEQ/L 138 MEQ/L Potassium Level 4.7 MEQ/L 4.0 MEQ/L Chloride Level 105 MEQ/L 103 MEQ/L Carbon Dioxide Level 30.0 MEQ/L 29.3 MEQ/L Anion Gap 5 MEQ/L 6 MEQ/L Estimat Glomerular Filtration Rate 22 ML/MIN 25 ML/MIN Eosinophils % 4 % Polychromasia 2.0 % Imaging Last Impressions Aorta w/Runoff CTA 07/08/17 0000 Signed Impressions: Service Date/Time: Saturday, July 08, 2017 21:18 - CONCLUSION: 1. Moderate to severe atherosclerotic disease of aorta without aneurysm. Blood flow in both lower extremities is maintained with good perfusion appreciated to the distal legs bilaterally. No high-grade stenosis or occlusion is visualized. 2. The nonvascular structures visualized demonstrate no acute finding. Pollo Mccabe MD Chest X-Ray 07/07/17 0000 Signed Impressions: Service Date/Time: Friday, July 07, 2017 17:08 - CONCLUSION: Mild compensated cardiomegaly. Gautam Sánchez MD FACR Upper Extremity Ultrasound 07/06/17 0000 Signed Impressions: Service Date/Time: June 20:27 - CONCLUSION: 1. Negative for deep venous thrombosis in the upper extremities. Right IJ line present. Kostas Rosado MD Myocardial Perfusion Scan Nuc Med 07/03/17 0000 Signed Impressions: Service Date/Time: Monday, July 03, 2017 13:26 - CONCLUSION: 1. Apical thinning versus old apical infarct. 2. No reversibility to suggest ischemia. 3. Adequate wall motion throughout with an estimated ejection fraction of 61%% RISK CATEGORY: Low (<1%% Annual Mortality Rate) Yamil Pozo MD Chest CT 06/24/17 0000 Signed Impressions: Service Date/Time: Saturday, June 24, 2017 16:21 - CONCLUSION: Areas of scarring in the lungs with COPD and scattered tiny nodules most likely benign, repeat noncontrast chest CT is suggested in 6 months as a conservative follow up. Sujit Bunch MD Abdomen X-Ray 06/21/17 0000 Signed Impressions: Service Date/Time: Wednesday, June 21, 2017 18:55 - CONCLUSION: No acute disease. Joaquin Freed MD Tibia/Fibula X-Ray 06/13/17 0000 Signed Impressions: Service Date/Time: Tuesday, June 13, 2017 20:40 - CONCLUSION: 1. Ulceration at the lateral leg with soft tissue swelling. No bony abnormality. Kostas Rosado MD Objective Remarks GENERAL: NAD, AAOx3 SKIN: Patient has erythematous rash through out anterior and posterior truck as well as arms and upper legs- continuing to improve. Pt with dried and flacking skin on her chest, face, and extremities where the rash was. Patient has tenia in bilateral groin and gluteal cleft. Also skin breakdown on bilateral buttock. CARDIO: Regular RESP: CTA bilaterally. ABD: Decreased BS, soft, distended, mild diffuse tenderness EXT: Wet to dry dressing in place at RLE Procedures Pt underwent surgical debridement with wound vac placement on 06/15/[address] Clark - Pt underwent a vac change in OR on 06/17/17, 06/19, 06/21, 06/23, 06/26 - Pt has wound vac change at bedside on 06/30/17, 07/04/17 and recommended for continued wound vac changes on Tuesdays and Fridays A/P Problem List: (1) Open leg wound ICD Codes: S81.809A - Unspecified open wound, unspecified lower leg, initial encounter Status: Acute Plan: RLE nonhealing wound - Patient with large, necrotic open wound right lower extremity x 2 months. - Wound culture growing gram negative rods - Blood cultures with no growth - Pt has been started on Zosyn and Vancomycin - General Surgery is following - Pt underwent surgical debridement with wound vac placement on 06/15/[address] Clark - Pt underwent a vac change on 06/17/17, 06/19, 06/21, 06/23, 06/26 - wound VAC with PO Dilaudid on 07/07/17 - Pt was very painful with bedside wound VAC change 07/07 despite PO Dilaudid - Case d/w General Surgery, Dr. Knight (07/07). Dressing changed to wet-to -dry and pt has been tolerating bedside dressing changes - CTA with runoff (07/08) Moderate to severe atherosclerotic disease of aorta without aneurysm. Blood flow in both lower extremities is maintained with good perfusion appreciated to the distal legs bilaterally. No high-grade stenosis or occlusion is visualized. The nonvascular structures visualized demonstrate no acute finding. - Pt with B/L LE edema and weeping, improving. - PO lasix stopped 07/08, contributing to rash? Will observe. Pt may need to have diuretic resumed. - Patient creatinine increased to 1.6 (07/09), 2.2 (07/10) patient had contrast study 07/08. Repeat labs on 07/14 with Cr 1.97 - Awaiting repeat BMP today & observe Creatinine - Pain control PRN - Constipation precautions, Vivian-Colace BID, MOM PRB, Dulcolax PRN - KUB (07/12) without any evidence of obstruction. - Pt was given Mag Citrate and had multiple BMs on 07/12 - Supportive care - SCD on non-surgical leg UTI due to Klebsiella species - Urine Cx (07/08) --> klebsiella & e. coli - IV Rocephin started on 07/10 - WBC 10.6 (07/14) Rash - appreciate input from ID, Dr. Choi - rash improving from 07/08, less red. - Unlikely to be infectious - drug allergy rash? Unclear which medication might be the trigger - Lasix stopped 07/07 - one time dose Solu Medrol 125 mg given on 07/11 - rash continues to improve - supportive care Tachycardia - Outpt 2D echo (04/03/17) --> Mild concentric LVH, Estimated EF 50%, Grade 1 diastolic dysfunction, Moderate mitral valve regurg, Mild tricuspid valve regurg, Normal estimated PA pressure, 32.7mmHg - Telemetry with noted sinus tachycardia - EKG in the ED noted sinus tachycardia - repeat EKG (06/23) --> sinus tachycardia, 109, with occasional PVC - continue Ultram PRN. add acetaminophen scheduled. Patient does not want stronger pain medication. She is fearful of sedation/side effects - place continuous telemetry for closer monitoring of HR and rhythm - suspect pain, anxiety, COPD, and prednisone are all contributing - Lexiscan requested per Dr. Parsons, but patient refused at that time - Pt has run VT on 07/02. Cardiology consulted. - Lexiscan (07/02) --> reviewed with Radiology. EF 61%, subtle inferior/ basilar wall reversible defect - echocardiogram (07/04) --> EF 60-65% - metoprolol 25mg BID COPD/Chemical exposure hx in 08/2016 - PFT in 2016 with reported FEV1 of 0.51, 20% of predicted - Continue Symbicort BID and Combivent QID - Pt was given a dose of IV Solu-Medrol at admission - Prednisone 20mg alt with 10mg every other day -> (06/25) transitioned to Prednisone 10 mg daily - prednisone decreased to 5mg daily (07/04) - Duonebs were given q6h while awake - Pt refused Budesonide Nebs BID - Supplemental O2 as needed - repeat CXR (06/24) hyperinflation without infiltrate. Small nodule RUL recommend outpatient follow up CT - CT chest without contrast (06/24) Areas of scarring in the lungs with COPD and scattered tiny nodules most likely benign, repeat noncontrast chest CT is suggested in 6 months as a conservative follow up Hyperglycemia - Pt likely with steroid induced hyperglycemia with her prolonged steroid use - Hgb A1C is 8.6% - She has been having some intermittent issues with hypoglycemia - NovoLog SSI Dc'd (06/22) - Accu checks ACHS Decreased appetite - Remeron 30 mg PO QHS started - Multivitamin started Edema of upper extremity - Improving edema of RUE - UE US neg for DVT - elevate RUE - see above COPD (chronic obstructive pulmonary disease) - Chronic Hyperglycemia - Chronic Tinea - bilateral groin and gluteal cleft - nystatin to affected area Buttock wound - open skin breakdown buttock area - antifungal/barrier cream to buttock area - keep area clean and dry - specialty bed to relieve pressure Anemia - Pt with a noted continued decrease in her H/H, Hgb 8.0 today - Likely multifactorial, related to acute illness, multiple procedures/ surgeries, frequent blood draws - Transfuse 2 units PRBCs on 07/14 - Repeat labs this morning Anticipate discharge to SNF on Monday (2) UTI due to Klebsiella species ICD Codes: N39.0 - Urinary tract infection, site not specified; B96.1 - Klebsiella pneumoniae [K. pneumoniae] as the cause of diseases classified elsewhere Status: Acute Plan: see above (3) Rash ICD Codes: R21 - Rash and other nonspecific skin eruption Plan: see above (4) Edema of upper extremity ICD Codes: R60.0 - Localized edema Status: Acute Plan: see above (5) COPD (chronic obstructive pulmonary disease) ICD Codes: J44.9 - Chronic obstructive pulmonary disease, unspecified Status: Chronic (6) Hyperglycemia ICD Codes: R73.9 - Hyperglycemia, unspecified Status: Chronic (7) Tinea ICD Codes: B35.9 - Dermatophytosis, unspecified (8) Buttock wound ICD Codes: S31.809A - Unspecified open wound of unspecified buttock, initial encounter (9) Anemia ICD Codes: D64.9 - Anemia, unspecified Assessment and Plan Patient examined. Assessment and plan formulated with Yomaira JARAMILLO I agree with the above. constipation resolved esvin. contrast nephropathy. esvin resolving symptomatic anemia. hgb 15 down to 8. 2 units and up to 11 hgb abx for uti wound care. plan for snf Monday Problem Qualifiers (1) Open leg wound: Qualified Codes: S81.801A - Unspecified open wound, right lower leg, initial encounter Yomaira Lemus Jul 15, 2017 10:21 Ellis Eason MD Jul 15, 2017 12:52
[2017-07-15 11:05] LABS: AUTOMATED NEUTROPHIL # 9.2 TH/MM3 (1.8-7.7); BASOPHIL # 0.1 TH/MM3 (0-0.2); BASOPHIL % 0.5 % (0.0-2.0); EOSINOPHIL # 0.5 TH/MM3 (0-0.4); EOSINOPHIL % 4.4 % (0.0-4.0); HEMATOCRIT 33.9 % (35.0-46.0); HEMOGLOBIN 11.4 GM/DL (11.6-15.3); LYMPH % 12.8 % (9.0-44.0); LYMPHOCYTE # 1.6 TH/MM3 (1.0-4.8); MEAN CELL VOLUME 86.3 FL (80.0-100.0); MEAN CORPUSCULAR HGB CONC 33.6 % (32.0-36.0); MONO % 7.6 % (0.0-8.0); MONOCYTE # 0.9 TH/MM3 (0-0.9); NEUT % 74.7 % (16.0-70.0); PLATELET COUNT 278 TH/MM3 (150-450); RED BLOOD COUNT 3.93 MIL/MM3 (4.00-5.30); RED CELL DISTRIBUTION WIDTH 17.8 % (11.6-17.2); WHITE BLOOD COUNT 12.3 TH/MM3 (4.0-11.0)
[2017-07-15] MEDS: cefTRIAXone INJ 1,000 MG in SODIUM CHLORIDE 0.9% INJ 100 ML IV SCH (11:09)
[2017-07-15 11:22] LABS: BICARBONATE 28.2 MEQ/L (21.0-32.0); CREATININE 1.58 MG/DL (0.50-1.00); MAGNESIUM 2.3 MG/DL (1.5-2.5)
[2017-07-15 13:07] LABS: BANDS 17 % (0-6); LYMPHOCYTES 11 % (9-44); MONOCYTES 12 % (0-8); MYELOCYTES 3 % (0-0); POLYS (SEG NEUTROPHILS) 52 % (16-70); PROMYELOCYTES 1 % (0-0); TOXIC GRANULATION 1+ (NORMAL)
[2017-07-15 13:08] LABS: OVALOCYTES 1+ (NORMAL)
[2017-07-15] MEDS ORDERED: LACTOBACILLUS ACIDOPHILUS TAB PO ONE (18:30)
[2017-07-15] MEDS: REMOVE OLD PATCH T-DERMAL SCH (20:25)
[2017-07-16] VITALS (11 sets, daily range): BP systolic 102–119; BP diastolic 63–76; PULSE 78–114; RESP 17–24; TEMP 96–99.4; O2SAT 92–100
[2017-07-16] MEDS: NYSTATIN 100,000 U/GM PWD 15 GM BTL TOPICAL SCH ×3 (04:58→21:57)
[2017-07-16] MEDS: DOCUSATE SODIUM 50 MG/SENNA 8.6 MG TAB PO SCH ×2 (07:43→21:56)
[2017-07-16] MEDS: METOPROLOL TARTRATE 25 MG TAB PO SCH ×2 (07:45→21:56)
[2017-07-16] MEDS: MULTIVITAMIN TAB PO SCH (07:45)
[2017-07-16] MEDS: predniSONE 5 MG TAB PO SCH (07:46)
[2017-07-16] MEDS: BUDESONIDE-FORMOTEROL 80/4.5 MCG INHALER INH SCH ×2 (07:46→21:57)
[2017-07-16] MEDS: LACTOBACILLUS ACIDOPHILUS TAB PO SCH ×3 (07:46→17:30)
[2017-07-16] MEDS: RESP: ALBUTEROL 2.5 MG/IPRATROPIUM 0.5 MG NEB (SCH) NEB ×3 (08:10→19:55)
[2017-07-16 09:30] LABS: AUTOMATED NEUTROPHIL # 8.7 TH/MM3 (1.8-7.7); BASOPHIL # 0.1 TH/MM3 (0-0.2); BASOPHIL % 0.7 % (0.0-2.0); EOSINOPHIL # 0.7 TH/MM3 (0-0.4); EOSINOPHIL % 5.7 % (0.0-4.0); HEMATOCRIT 35.5 % (35.0-46.0); HEMOGLOBIN 11.8 GM/DL (11.6-15.3); LYMPHOCYTE # 1.4 TH/MM3 (1.0-4.8); MEAN CORPUSCULAR HEMOGLOBIN 28.4 PG (27.0-34.0); MEAN CORPUSCULAR HGB CONC 33.1 % (32.0-36.0); MEAN PLATELET VOLUME 6.8 FL (7.0-11.0); MONO % 6.7 % (0.0-8.0); MONOCYTE # 0.8 TH/MM3 (0-0.9); NEUT % 74.9 % (16.0-70.0); PLATELET COUNT 241 TH/MM3 (150-450); RED BLOOD COUNT 4.13 MIL/MM3 (4.00-5.30); RED CELL DISTRIBUTION WIDTH 17.9 % (11.6-17.2); WHITE BLOOD COUNT 11.7 TH/MM3 (4.0-11.0)
[2017-07-16 09:52] LABS: BICARBONATE 27.6 MEQ/L (21.0-32.0); CREATININE 1.28 MG/DL (0.50-1.00); MAGNESIUM 2.1 MG/DL (1.5-2.5)
--- NOTE | 2017-07-16 09:53 | HHI.PR ---
Subjective Remarks Pt had some soft/loose stools last night afebrile Objective Vitals Vital Signs Date Time Temp Pulse Resp B/P (MAP) Pulse Ox O2 Delivery O2 Flow Rate FiO2 07/16/17 08:21 98 07/16/17 08:00 97.4 94 20 119/70 (86) 100 07/16/17 07:45 Nasal Cannula 2.00 07/16/17 04:00 96.2 92 17 106/76 (86) 96 07/16/17 00:05 96.0 101 17 115/74 (88) 96 07/16/17 00:04 78 07/15/17 20:25 Nasal Cannula 2.00 Humidified 07/15/17 20:09 98 Nasal Cannula 2.00 07/15/17 20:00 95.5 96 17 121/74 (90) 96 07/15/17 20:00 83 07/15/17 16:00 95.4 89 20 111/63 (79) 97 07/15/17 12:00 96.2 85 20 91/52 (65) 100 Result Diagram: 07/16/17 0855 07/15/17 0853 Other Results Laboratory Tests Test 07/15/17 08:53 07/16/17 08:55 White Blood Count 12.3 TH/MM3 11.7 TH/MM3 Red Blood Count 3.93 MIL/MM3 4.13 MIL/MM3 Hemoglobin 11.4 GM/DL 11.8 GM/DL Hematocrit 33.9 % 35.5 % Mean Corpuscular Volume 86.3 FL 86.0 FL Mean Corpuscular Hemoglobin 29.0 PG 28.4 PG Mean Corpuscular Hemoglobin Concent 33.6 % 33.1 % Red Cell Distribution Width 17.8 % 17.9 % Platelet Count 278 TH/MM3 241 TH/MM3 Mean Platelet Volume 7.0 FL 6.8 FL Neutrophils (%) (Auto) 74.7 % 74.9 % Lymphocytes (%) (Auto) 12.8 % 12.0 % Monocytes (%) (Auto) 7.6 % 6.7 % Eosinophils (%) (Auto) 4.4 % 5.7 % Basophils (%) (Auto) 0.5 % 0.7 % Neutrophils # (Auto) 9.2 TH/MM3 8.7 TH/MM3 Lymphocytes # (Auto) 1.6 TH/MM3 1.4 TH/MM3 Monocytes # (Auto) 0.9 TH/MM3 0.8 TH/MM3 Eosinophils # (Auto) 0.5 TH/MM3 0.7 TH/MM3 Basophils # (Auto) 0.1 TH/MM3 0.1 TH/MM3 CBC Comment AUTO DIFF AUTO DIFF Differential Total Cells Counted 100 Neutrophils % (Manual) 52 % Band Neutrophils % 17 % Lymphocytes % 11 % Monocytes % 12 % Eosinophils % 4 % Neutrophils # (Manual) 9.0 TH/MM3 Myelocytes 3 % Promyelocytes 1 % Differential Comment FINAL DIFF MANUAL Toxic Granulation 1+ Platelet Estimate NORMAL Platelet Morphology Comment NORMAL Ovalocytes 1+ Blood Urea Nitrogen 19 MG/DL Creatinine 1.58 MG/DL Random Glucose 59 MG/DL Calcium Level 8.0 MG/DL Magnesium Level 2.3 MG/DL Sodium Level 135 MEQ/L Potassium Level 4.1 MEQ/L Chloride Level 99 MEQ/L Carbon Dioxide Level 28.2 MEQ/L Anion Gap 8 MEQ/L Estimat Glomerular Filtration Rate 33 ML/MIN Imaging Last Impressions Aorta w/Runoff CTA 07/08/17 0000 Signed Impressions: Service Date/Time: Saturday, July 08, 2017 21:18 - CONCLUSION: 1. Moderate to severe atherosclerotic disease of aorta without aneurysm. Blood flow in both lower extremities is maintained with good perfusion appreciated to the distal legs bilaterally. No high-grade stenosis or occlusion is visualized. 2. The nonvascular structures visualized demonstrate no acute finding. Pollo Mccabe MD Chest X-Ray 07/07/17 0000 Signed Impressions: Service Date/Time: Friday, July 07, 2017 17:08 - CONCLUSION: Mild compensated cardiomegaly. Gautam Sánchez MD FACR Upper Extremity Ultrasound 07/06/17 0000 Signed Impressions: Service Date/Time: June 20:27 - CONCLUSION: 1. Negative for deep venous thrombosis in the upper extremities. Right IJ line present. Kostas Rosado MD Myocardial Perfusion Scan Nuc Med 07/03/17 0000 Signed Impressions: Service Date/Time: Monday, July 03, 2017 13:26 - CONCLUSION: 1. Apical thinning versus old apical infarct. 2. No reversibility to suggest ischemia. 3. Adequate wall motion throughout with an estimated ejection fraction of 61%% RISK CATEGORY: Low (<1%% Annual Mortality Rate) Yamil Pozo MD Chest CT 06/24/17 0000 Signed Impressions: Service Date/Time: Saturday, June 24, 2017 16:21 - CONCLUSION: Areas of scarring in the lungs with COPD and scattered tiny nodules most likely benign, repeat noncontrast chest CT is suggested in 6 months as a conservative follow up. Sujit Bunch MD Abdomen X-Ray 06/21/17 0000 Signed Impressions: Service Date/Time: Wednesday, June 21, 2017 18:55 - CONCLUSION: No acute disease. Joaquin Freed MD Tibia/Fibula X-Ray 06/13/17 0000 Signed Impressions: Service Date/Time: Tuesday, June 13, 2017 20:40 - CONCLUSION: 1. Ulceration at the lateral leg with soft tissue swelling. No bony abnormality. Kostas Rosado MD Objective Remarks GENERAL: NAD, AAOx3 SKIN: Patient has erythematous rash through out anterior and posterior truck as well as arms and upper legs- continuing to improve. Pt with dried and flacking skin on her chest, face, and extremities where the rash was. Patient has tenia in bilateral groin and gluteal cleft. Also skin breakdown on bilateral buttock. CARDIO: Regular RESP: CTA bilaterally. ABD: Decreased BS, soft, distended, mild diffuse tenderness EXT: Wet to dry dressing in place at RLE Procedures Pt underwent surgical debridement with wound vac placement on 06/15/[address] Clark - Pt underwent a vac change in OR on 06/17/17, 06/19, 06/21, 06/23, 2 - Pt has wound vac change at bedside on 06/30/17, 07/04/17 and recommended for continued wound vac changes on Tuesdays and Fridays A/P Problem List: (1) Open leg wound ICD Codes: S81.809A - Unspecified open wound, unspecified lower leg, initial encounter Status: Acute Plan: RLE nonhealing wound - Patient with large, necrotic open wound right lower extremity x 2 months. - Wound culture growing gram negative rods - Blood cultures with no growth - Pt has been started on Zosyn and Vancomycin - General Surgery is following - Pt underwent surgical debridement with wound vac placement on 06/15/[address] Clark - Pt underwent a vac change on 06/17/17, 06/19, 06/21, 06/23, 06/26 - wound VAC with PO Dilaudid on 07/07/17 - Pt was very painful with bedside wound VAC change 07/07 despite PO Dilaudid - Case d/w General Surgery, Dr. Knight (07/07). Dressing changed to wet-to -dry and pt has been tolerating bedside dressing changes - CTA with runoff (07/08) Moderate to severe atherosclerotic disease of aorta without aneurysm. Blood flow in both lower extremities is maintained with good perfusion appreciated to the distal legs bilaterally. No high-grade stenosis or occlusion is visualized. The nonvascular structures visualized demonstrate no acute finding. - Pt with B/L LE edema and weeping, improving. - PO lasix stopped 07/08, contributing to rash? Will observe. Pt may need to have diuretic resumed. - Patient creatinine increased to 1.6 (07/09), 2.2 (07/10) patient had contrast study 07/08. Repeat labs on 07/16 with Cr 1.28 - Awaiting repeat BMP today & observe Creatinine - Pain control PRN - Constipation precautions, Vivian-Colace BID, MOM PRB, Dulcolax PRN - KUB (07/12) without any evidence of obstruction. - Pt was given Mag Citrate and had multiple BMs on 07/12 - Supportive care - SCD on non-surgical leg UTI due to Klebsiella species - Urine Cx (07/08) --> klebsiella & e. coli - IV Rocephin started on 07/10 - WBC 11.7 (07/16) Rash - appreciate input from ID, Dr. Choi - rash improving from 07/08, less red. - Unlikely to be infectious - drug allergy rash? Unclear which medication might be the trigger - Lasix stopped 07/07 - one time dose Solu Medrol 125 mg given on 07/11 - rash continues to improve - supportive care Tachycardia - Outpt 2D echo (04/03/17) --> Mild concentric LVH, Estimated EF 50%, Grade 1 diastolic dysfunction, Moderate mitral valve regurg, Mild tricuspid valve regurg, Normal estimated PA pressure, 32.7mmHg - Telemetry with noted sinus tachycardia - EKG in the ED noted sinus tachycardia - repeat EKG (06/23) --> sinus tachycardia, 109, with occasional PVC - continue Ultram PRN. add acetaminophen scheduled. Patient does not want stronger pain medication. She is fearful of sedation/side effects - place continuous telemetry for closer monitoring of HR and rhythm - suspect pain, anxiety, COPD, and prednisone are all contributing - Lexiscan requested per Dr. Parsons, but patient refused at that time - Pt has run VT on 07/02. Cardiology consulted. - Lexiscan (07/02) --> reviewed with Radiology. EF 61%, subtle inferior/ basilar wall reversible defect - echocardiogram (07/04) --> EF 60-65% - metoprolol 25mg BID COPD/Chemical exposure hx in 08/2016 - PFT in 2016 with reported FEV1 of 0.51, 20% of predicted - Continue Symbicort BID and Combivent QID - Pt was given a dose of IV Solu-Medrol at admission - Prednisone 20mg alt with 10mg every other day -> (06/25) transitioned to Prednisone 10 mg daily - prednisone decreased to 5mg daily (07/04) - Duonebs were given q6h while awake - Pt refused Budesonide Nebs BID - Supplemental O2 as needed - repeat CXR (06/24) hyperinflation without infiltrate. Small nodule RUL recommend outpatient follow up CT - CT chest without contrast (06/24) Areas of scarring in the lungs with COPD and scattered tiny nodules most likely benign, repeat noncontrast chest CT is suggested in 6 months as a conservative follow up Hyperglycemia - Pt likely with steroid induced hyperglycemia with her prolonged steroid use - Hgb A1C is 8.6% - She has been having some intermittent issues with hypoglycemia - NovoLog SSI Dc'd (06/22) - Accu checks ACHS Decreased appetite - Remeron 30 mg PO QHS started - Multivitamin started Edema of upper extremity - Improving edema of RUE - UE US neg for DVT - elevate RUE - see above COPD (chronic obstructive pulmonary disease) - Chronic Hyperglycemia - Chronic Tinea - bilateral groin and gluteal cleft - nystatin to affected area Buttock wound - open skin breakdown buttock area - antifungal/barrier cream to buttock area - keep area clean and dry - specialty bed to relieve pressure Anemia - Likely multifactorial, related to acute illness, multiple procedures/ surgeries, frequent blood draws - Transfuse 2 units PRBCs on 07/14 - Hgb 11.8 today Anticipate discharge to SNF on Monday (2) UTI due to Klebsiella species ICD Codes: N39.0 - Urinary tract infection, site not specified; B96.1 - Klebsiella pneumoniae [K. pneumoniae] as the cause of diseases classified elsewhere Status: Acute Plan: see above (3) Rash ICD Codes: R21 - Rash and other nonspecific skin eruption Plan: see above (4) Edema of upper extremity ICD Codes: R60.0 - Localized edema Status: Acute Plan: see above (5) COPD (chronic obstructive pulmonary disease) ICD Codes: J44.9 - Chronic obstructive pulmonary disease, unspecified Status: Chronic (6) Hyperglycemia ICD Codes: R73.9 - Hyperglycemia, unspecified Status: Chronic (7) Tinea ICD Codes: B35.9 - Dermatophytosis, unspecified (8) Buttock wound ICD Codes: S31.809A - Unspecified open wound of unspecified buttock, initial encounter (9) Anemia ICD Codes: D64.9 - Anemia, unspecified Assessment and Plan Patient examined. Assessment and plan formulated with Yomaira Lemus PA-C. I agree with the above. constipation resolved esvin. contrast nephropathy. esvin resolving symptomatic anemia. hgb 15 down to 8. 2 units and up to 11 hgb abx for uti wound care. rash improving. plan for snf Monday dc orders written Problem Qualifiers (1) Open leg wound: Qualified Codes: S81.801A - Unspecified open wound, right lower leg, initial encounter Yomaira Lemus Jul 16, 2017 09:52 Ellis Eason MD Jul 16, 2017 15:30
[2017-07-16] MEDS ORDERED: LACT PO (10:24)
[2017-07-16 10:48] LABS: BANDS 9 % (0-6); CORRECTED NUCLEATED RBC 1 /100 WBC (0-0); LYMPHOCYTES 9 % (9-44); MONOCYTES 6 % (0-8); MYELOCYTES 8 % (0-0); NEUTROPHIL # MANUAL DIFF 9.8 TH/MM3 (1.8-7.7); NUCLEATED RED BLOOD CELL 1 (0-0); POLYS (SEG NEUTROPHILS) 67 % (16-70)
[2017-07-16 10:49] LABS: OVALOCYTES 1+ (NORMAL)
[2017-07-16] MEDS: cefTRIAXone INJ 1,000 MG in SODIUM CHLORIDE 0.9% INJ 100 ML IV SCH (11:48)
--- NOTE | 2017-07-16 12:08 | HHI.DCPOC ---
Discharge Care Plan Diagnosis: (1) Open leg wound (2) COPD (chronic obstructive pulmonary disease) (3) Tachycardia (4) Rash (5) Tinea (6) Buttock wound (7) Hyperglycemia (8) UTI due to Klebsiella species (9) Anemia Goals to Promote Your Health * To prevent worsening of your condition and complications * To maintain your health at the optimal level Directions to Meet Your Goals Take your medications as prescribed Follow your dietary instruction Follow activity as directed Keep your appointments as scheduled Take your immunizations and boosters as scheduled If your symptoms worsen call your PCP, if no PCP go to Urgent Care Center or Emergency Room Smoking is Dangerous to Your Health. Avoid second hand smoke Call the 24-hour hour crisis hotline for domestic abuse at Yomaira Lemus Jul 16, 2017 12:07
[2017-07-16] MEDS ORDERED: Albuterol-Ipratropium Neb NEB (12:10)
[2017-07-16] MEDS ORDERED: TRAM50 PO (14:27)
[2017-07-16] MEDS: REMOVE OLD PATCH T-DERMAL SCH (21:56)
[2017-07-17] VITALS: BP 105/64; PULSE 85; PULSE 86; RESP 18; TEMP 98.9; O2SAT 95
[2017-07-17 01:35] VITALS: PULSE 85
[2017-07-17 02:25] VITALS: BP 101/62; PULSE 93; RESP 18; O2SAT 93
[2017-07-17 04:00] VITALS: BP 108/62; PULSE 97; RESP 18; TEMP 98.8; O2SAT 93
[2017-07-17] MEDS: NYSTATIN 100,000 U/GM PWD 15 GM BTL TOPICAL SCH (06:09)
[2017-07-17 08:00] VITALS: BP 106/57; PULSE 98; RESP 20; TEMP 98.6; O2SAT 95
[2017-07-17] MEDS: RESP: ALBUTEROL 2.5 MG/IPRATROPIUM 0.5 MG NEB (SCH) NEB (08:47)
[2017-07-17 08:50] VITALS: O2SAT 95
[2017-07-17 09:21] LABS: CALCIUM 7.8 MG/DL (8.5-10.1); CREATININE 1.08 MG/DL (0.50-1.00)
--- NOTE | 2017-07-17 11:03 | HHI.DS ---
Discharge Summary Admission Date Jun 13, 2017 at 20:19 Discharge Date: Jul 17, 2017 Admitting Diagnosis cellulitis, necrosis right lower leg (1) Open leg wound Diagnosis: Principal ICD Codes: S81.809A - Unspecified open wound, unspecified lower leg, initial encounter Status: Acute (2) UTI due to Klebsiella species Diagnosis: Principal ICD Codes: N39.0 - Urinary tract infection, site not specified; B96.1 - Klebsiella pneumoniae [K. pneumoniae] as the cause of diseases classified elsewhere Status: Acute (3) Rash Diagnosis: Principal ICD Codes: R21 - Rash and other nonspecific skin eruption (4) Edema of upper extremity Diagnosis: Principal ICD Codes: R60.0 - Localized edema Status: Acute (5) COPD (chronic obstructive pulmonary disease) Diagnosis: Principal ICD Codes: J44.9 - Chronic obstructive pulmonary disease, unspecified Status: Chronic (6) Hyperglycemia Diagnosis: Principal ICD Codes: R73.9 - Hyperglycemia, unspecified Status: Chronic (7) Tinea Diagnosis: Secondary ICD Codes: B35.9 - Dermatophytosis, unspecified (8) Buttock wound Diagnosis: Secondary ICD Codes: S31.809A - Unspecified open wound of unspecified buttock, initial encounter (9) Anemia Diagnosis: Principal ICD Codes: D64.9 - Anemia, unspecified Consultants Dr. Peter Moreno - General Surgery Dr. Saleem Hutchins - Cardiology Dr. Gil Aaron - Palliative care medicine Dr. Michelle Choi - ID Procedures Pt underwent surgical debridement with wound vac placement on 06/15/[address] Clark - Pt underwent a vac change in OR on 06/17/17, 06/19, 06/21, 06/23, 06/26 - Pt has wound vac change at bedside on 06/30/17, 07/04/17 and recommended for continued wound vac changes on Tuesdays and Fridays Brief History 66-year-old female with PMH of COPD presents to the ED for evaluation of 3 day history of increased pain, redness, foul smell of chronic wounds of her right lower leg. She states that she had 2 large blisters in the area that popped about 2 months ago, right after Thanksgiving. She is not sure of the etiology of the blisters and subsequent wound but wound has progressively worsened and over the last few days and began to have a foul-smelling discharge. She reports that she was seen by wound care nurse today at [facility] and directed to the ER for likely surgical intervention given the size and severity of the wound. She denies fever, chills, nausea, vomiting, numbness, tingling, weakness, limitations to range of motion of the extremity. She denies history of MRSA. She endorses history of long-term prednisone use regarding COPD and is currently down to 20 mg per day, but reportedly wasn't much higher doses. She reportedly had been seeing a provider at her primary care physician's office regarding the wounds. CBC/BMP: 07/16/17 0855 07/17/17 0820 Significant Findings Laboratory Tests Test 07/15/17 08:53 07/16/17 08:55 07/17/17 08:20 White Blood Count 12.3 TH/MM3 (4.0-11.0) 11.7 TH/MM3 (4.0-11.0) Red Blood Count 3.93 MIL/MM3 (4.00-5.30) Hemoglobin 11.4 GM/DL (11.6-15.3) Hematocrit 33.9 % (35.0-46.0) Red Cell Distribution Width 17.8 % (11.6-17.2) 17.9 % (11.6-17.2) Neutrophils (%) (Auto) 74.7 % (16.0-70.0) 74.9 % (16.0-70.0) Eosinophils (%) (Auto) 4.4 % (0.0-4.0) 5.7 % (0.0-4.0) Neutrophils # (Auto) 9.2 TH/MM3 (1.8-7.7) 8.7 TH/MM3 (1.8-7.7) Eosinophils # (Auto) 0.5 TH/MM3 (0-0.4) 0.7 TH/MM3 (0-0.4) Band Neutrophils % 17 % (0-6) 9 % (0-6) Monocytes % 12 % (0-8) Neutrophils # (Manual) 9.0 TH/MM3 (1.8-7.7) 9.8 TH/MM3 (1.8-7.7) Myelocytes 3 % (0-0) 8 % (0-0) Promyelocytes 1 % (0-0) Toxic Granulation 1+ (NORMAL) Ovalocytes 1+ (NORMAL) 1+ (NORMAL) Blood Urea Nitrogen 19 MG/DL (7-18) Creatinine 1.58 MG/DL (0.50-1.00) 1.28 MG/DL (0.50-1.00) 1.08 MG/DL (0.50-1.00) Random Glucose 59 MG/DL (74-106) 69 MG/DL (74-106) 71 MG/DL (74-106) Calcium Level 8.0 MG/DL (8.5-10.1) 8.0 MG/DL (8.5-10.1) 7.8 MG/DL (8.5-10.1) Sodium Level 135 MEQ/L (136-145) 134 MEQ/L (136-145) Estimat Glomerular Filtration Rate 33 ML/MIN (>89) 42 ML/MIN (>89) 51 ML/MIN (>89) Mean Platelet Volume 6.8 FL (7.0-11.0) Nucleated Red Blood Cells 1 /100 WBC (0-0) Imaging Last Impressions Abdomen X-Ray 07/12/17 0000 Signed Impressions: Service Date/Time: Wednesday, July 12, 2017 14:18 - CONCLUSION: 1. No evidence of obstruction. Saleem Wang MD Aorta w/Runoff CTA 07/08/17 0000 Signed Impressions: Service Date/Time: Saturday, July 08, 2017 21:18 - CONCLUSION: 1. Moderate to severe atherosclerotic disease of aorta without aneurysm. Blood flow in both lower extremities is maintained with good perfusion appreciated to the distal legs bilaterally. No high-grade stenosis or occlusion is visualized. 2. The nonvascular structures visualized demonstrate no acute finding. Pollo Mccabe MD Chest X-Ray 07/07/17 0000 Signed Impressions: Service Date/Time: Friday, July 07, 2017 17:08 - CONCLUSION: Mild compensated cardiomegaly. Gautam Sánchez MD FACR Upper Extremity Ultrasound 07/06/17 0000 Signed Impressions: Service Date/Time: June 20:27 - CONCLUSION: 1. Negative for deep venous thrombosis in the upper extremities. Right IJ line present. Kostas Rosado MD Myocardial Perfusion Scan Nuc Med 07/03/17 0000 Signed Impressions: Service Date/Time: Monday, July 03, 2017 13:26 - CONCLUSION: 1. Apical thinning versus old apical infarct. 2. No reversibility to suggest ischemia. 3. Adequate wall motion throughout with an estimated ejection fraction of 61%% RISK CATEGORY: Low (<1%% Annual Mortality Rate) Yamil Pozo MD Chest CT 06/24/17 0000 Signed Impressions: Service Date/Time: Saturday, June 24, 2017 16:21 - CONCLUSION: Areas of scarring in the lungs with COPD and scattered tiny nodules most likely benign, repeat noncontrast chest CT is suggested in 6 months as a conservative follow up. Sujit Bunch MD Tibia/Fibula X-Ray 06/13/17 0000 Signed Impressions: Service Date/Time: Tuesday, June 13, 2017 20:40 - CONCLUSION: 1. Ulceration at the lateral leg with soft tissue swelling. No bony abnormality. Kostas Rosado MD PE at Discharge GENERAL: NAD, AAOx3 SKIN: Patient has erythematous rash through out anterior and posterior truck as well as arms and upper legs- continuing to improve. Pt with dried and flacking skin on her chest, face, and extremities where the rash was. Patient has tenia in bilateral groin and gluteal cleft. Also skin breakdown on bilateral buttock. CARDIO: Regular RESP: CTA bilaterally. ABD: Decreased BS, soft, distended, mild diffuse tenderness EXT: Wet to dry dressing in place at RLE Hospital Course RLE nonhealing wound - Patient with large, necrotic open wound right lower extremity x 2 months. - Wound culture growing gram negative rods - Blood cultures with no growth - Pt has been started on Zosyn and Vancomycin - General Surgery is following - Pt underwent surgical debridement with wound vac placement on 06/15/[address] Clark - Pt underwent multiple vac changes under anesthesia on 06/17/17, 06/19, 06/21, 06/23, 06/26 - wound VAC with PO Dilaudid on 07/07/17 - Pt was very painful with bedside wound VAC change 07/07 despite PO Dilaudid - Case d/w General Surgery, Dr. Knight (07/07). Dressing changed to wet-to -dry and pt has been tolerating bedside dressing changes - CTA with runoff (07/08) Moderate to severe atherosclerotic disease of aorta without aneurysm. Blood flow in both lower extremities is maintained with good perfusion appreciated to the distal legs bilaterally. No high-grade stenosis or occlusion is visualized. The nonvascular structures visualized demonstrate no acute finding. - Pt with B/L LE edema and weeping, improving. - Patient creatinine increased to 1.6 (07/09), 2.2 (07/10) patient had contrast study 07/08. Repeat labs on 07/16 with Cr 1.28 - Pain control PRN with Ultram at rehab - KUB (07/12) without any evidence of obstruction. - Pt was given Mag Citrate and had multiple BMs on 07/12 UTI due to Klebsiella species - Urine Cx (07/08) --> klebsiella & e. coli - Pt received IV Rocephin started on 07/10 --> 07/16/17 - WBC 11.7 (07/16) Rash - appreciate input from ID, Dr. Choi - rash improving - Unlikely to be infectious - drug allergy rash? Unclear which medication might be the trigger - Lasix stopped 07/07 - one time dose Solu Medrol 125 mg given on 07/11 Tachycardia - Outpt 2D echo (04/03/17) --> Mild concentric LVH, Estimated EF 50%, Grade 1 diastolic dysfunction, Moderate mitral valve regurg, Mild tricuspid valve regurg, Normal estimated PA pressure, 32.7mmHg - Telemetry with noted sinus tachycardia - EKG in the ED noted sinus tachycardia - repeat EKG (06/23) --> sinus tachycardia, 109, with occasional PVC - continue Ultram PRN. add acetaminophen scheduled. Patient does not want stronger pain medication. She is fearful of sedation/side effects - suspect pain, anxiety, COPD, and prednisone are all contributing - Lexiscan requested per Dr. Parsons, but patient refused at that time - Pt has run VT on 07/02. Cardiology consulted. - Lexiscan (07/02) --> reviewed with Radiology. EF 61%, subtle inferior/ basilar wall reversible defect - echocardiogram (07/04) --> EF 60-65% - metoprolol 25mg BID and HR has been controlled COPD/Chemical exposure hx in 08/2016 - PFT in 2016 with reported FEV1 of 0.51, 20% of predicted - Continue Symbicort BID and Combivent QID - Pt was given a dose of IV Solu-Medrol at admission - Prednisone 20mg alt with 10mg every other day -> (06/25) transitioned to Prednisone 10 mg daily - prednisone decreased to 5mg daily (07/04) - Duonebs were given q6h while awake - Pt refused Budesonide Nebs BID - Supplemental O2 as needed - repeat CXR (06/24) hyperinflation without infiltrate. Small nodule RUL recommend outpatient follow up CT - CT chest without contrast (06/24) Areas of scarring in the lungs with COPD and scattered tiny nodules most likely benign, repeat noncontrast chest CT is suggested in 6 months as a conservative follow up, to be checked by PCP. Hyperglycemia - Pt likely with steroid induced hyperglycemia with her prolonged steroid use - Hgb A1C is 8.6% - She has been having some intermittent issues with hypoglycemia - NovoLog SSI Dc'd (06/22) - Accu checks ACHS Decreased appetite - Remeron 30 mg PO QHS started but pt refused to continue this - Multivitamin started Edema of upper extremity - Improving edema of RUE - UE US neg for DVT - elevate RUE - see above COPD (chronic obstructive pulmonary disease) - Chronic Hyperglycemia - Chronic Tinea - bilateral groin and gluteal cleft - nystatin to affected area with improvement Buttock wound - open skin breakdown buttock area - antifungal/barrier cream to buttock area - keep area clean and dry - specialty bed to relieve pressure Anemia - Likely multifactorial, related to acute illness, multiple procedures/ surgeries, frequent blood draws - Transfuse 2 units PRBCs on 07/14 - Hgb 11.8 on 07/16 Pt Condition on Discharge: Stable Discharge Disposition: Discharge to SNF Discharge Instructions DIET: Follow Instructions for: Heart Healthy Diet Speech Therapy-Diet Recommends: Regular Activities you can perform: Regular-No Restrictions Follow up Referrals: Cardiology - [address] Hutchins PCP Follow-up - [address] Monzon Surgical - 2 Weeks with Peter Clark MD New Medications: Lactobacillus Acidophilus (Acidophilus/l-Sporogenes) 35 Million Cell-25 Million Cell Tab 1 TAB PO TID for loose stool for 14 Days, TAB Metoprolol Tartrate (Metoprolol Tartrate) 25 Mg Tab 25 MG PO Q12HR for heart rate, #60 TAB 0 Refills Prednisone (Prednisone) 5 Mg Tab 5 MG PO DAILY for steroid, #14 TAB 0 Refills Tramadol (Ultram) 50 Mg Tab 50 MG PO Q6H PRN for PAIN, #30 TAB [Albuterol-Ipratropium Neb] () 1 AMPULE NEBU 1 AMPULE NEB Q6HR WHILE AWAKE NEB for copd for 30 Days, NEBULE Continued Medications: Budesonide-Formoterol Inh (Symbicort Inh) 80-4.5 Mcg/Act Aero 2 PUFF INH Q12HR for Asthma Management, #1 INHALER 0 Refills Ipratropium-Albuterol Inh (Combivent Respimat Inh) 20-100 Senior Care/Act Aero 1 PUFF INH QID for Asthma Management, #1 INHALER 0 Refills Discontinued Medications: Penicillin V Potassium (Penicillin V Potassium) 250 Mg Tab 250 MG PO Q8H for Infection, TAB 0 Refills Prednisone (Prednisone) 20 Mg Tab 20 MG PO BID, TAB 0 Refills Additional Information Patient examined. Assessment and plan formulated with Yomaira Lemus PA-C. I agree with the above. Yomaira Lemsu Jul 17, 2017 11:03 Kin Parsons DO Jul 24, 2017 10:29
[2017-07-17] MEDS: METOPROLOL TARTRATE 25 MG TAB PO SCH (11:31)
[2017-07-17] MEDS: MULTIVITAMIN TAB PO SCH (11:31)
[2017-07-17] MEDS: DOCUSATE SODIUM 50 MG/SENNA 8.6 MG TAB PO SCH (11:31)
[2017-07-17] MEDS: predniSONE 5 MG TAB PO SCH (11:32)
[2017-07-17] MEDS: LACTOBACILLUS ACIDOPHILUS TAB PO SCH (11:32)
[2017-07-17] MEDS: BUDESONIDE-FORMOTEROL 80/4.5 MCG INHALER INH SCH (11:33)
[2017-07-17] MEDS: cefTRIAXone INJ 1,000 MG in SODIUM CHLORIDE 0.9% INJ 100 ML IV SCH (12:03)
--- NOTE | 2017-07-27 12:42 | MP ---
cc: Peter Clark MD DATE OF OPERATION: 06/26/2017 PREOPERATIVE DIAGNOSIS: Right leg wound. POSTOPERATIVE DIAGNOSIS: Right leg wound. PROCEDURE: Change of VAC dressing. SURGEON: Peter Clark MD ANESTHESIA: General endotracheal anesthesia. ESTIMATED BLOOD LOSS: Scant. FINDINGS: The patient's wound appeared to be healing. No evidence of necrotic tissue. SPECIMENS: None. COMPLICATIONS: None. DESCRIPTION OF PROCEDURE: The patient was brought to the operating room, placed on the operating table in supine position. General anesthesia was instituted. The right leg was prepped and draped sterilely after removing the VAC dressing. The wound was inspected. There were no areas of necrotic skin identified. As a result, the wound was irrigated with saline, VAC dressing was reapplied. The patient was then awakened and taken back to the recovery room. Peter Clark MD JLS/TI , 12:21 PM , 12:41 PM
== END 2017-07-17 13:14 | DRG 300 ==
LOC: NEPE 15:50 → NEDA 20:19 → NEPFCDU 21:06 → N07B 06-15 18:39
PROVIDERS: ADMIT Hospitalist; ATTEND Hospitalist
PROC: 0JDN3ZZ Extraction of Right Lower Leg Subcutaneous Tissue and Fascia, Percutaneous Approach (ICD-10-PCS; principal; 2017-06-15 17:32)
PROC: 0HDKXZZ Extraction of Right Lower Leg Skin, External Approach (ICD-10-PCS; 2017-06-17)
PROC: 2W0LX6Z Change Pressure Dressing on Right Lower Extremity (ICD-10-PCS; 2017-06-17)
PROC: 2W0LX6Z Change Pressure Dressing on Right Lower Extremity (ICD-10-PCS; 2017-06-21)
PROC: 3E10X8Z Irrigation of Skin and Mucous Membranes using Irrigating Substance (ICD-10-PCS; 2017-06-21)
PROC: 2W0LX6Z Change Pressure Dressing on Right Lower Extremity (ICD-10-PCS; 2017-06-23)
PROC: 2W0LX6Z Change Pressure Dressing on Right Lower Extremity (ICD-10-PCS; 2017-06-26)
PROC: 30233N1 Transfusion of Nonautologous Red Blood Cells into Peripheral Vein, Percutaneous Approach (ICD-10-PCS; 2017-07-14)
DX: I96 Gangrene, not elsewhere classified (principal); L97.218 Non-pressure chronic ulcer of right calf with other specified severity; I47.2 Ventricular tachycardia; N17.9 Acute kidney failure, unspecified; E09.65 Drug or chemical induced diabetes mellitus with hyperglycemia; I08.1 Rheumatic disorders of both mitral and tricuspid valves; L03.115 Cellulitis of right lower limb; N39.0 Urinary tract infection, site not specified; B35.4 Tinea corporis; J44.9 Chronic obstructive pulmonary disease, unspecified; N14.1 Nephropathy induced by other drugs, medicaments and biological substances; F17.210 Nicotine dependence, cigarettes, uncomplicated; R91.8 Other nonspecific abnormal finding of lung field; I70.0 Atherosclerosis of aorta; E16.2 Hypoglycemia, unspecified; Z51.5 Encounter for palliative care; Z66 Do not resuscitate; D72.825 Bandemia; D64.9 Anemia, unspecified; L27.0 Generalized skin eruption due to drugs and medicaments taken internally; F41.9 Anxiety disorder, unspecified; R60.0 Localized edema; K59.00 Constipation, unspecified; B96.20 Unspecified Escherichia coli [E. coli] as the cause of diseases classified elsewhere; B96.1 Klebsiella pneumoniae [K. pneumoniae] as the cause of diseases classified elsewhere; S31.829A Unspecified open wound of left buttock, initial encounter; S31.819A Unspecified open wound of right buttock, initial encounter; Z79.52 Long term (current) use of systemic steroids; Z85.3 Personal history of malignant neoplasm of breast; Z92.3 Personal history of irradiation; Z82.49 Family history of ischemic heart disease and other diseases of the circulatory system; Z87.442 Personal history of urinary calculi; T38.0X5A Adverse effect of glucocorticoids and synthetic analogues, initial encounter; T50.8X5A Adverse effect of diagnostic agents, initial encounter; X58.XXXA Exposure to other specified factors, initial encounter
CPT/HCPCS: 36415; 36430; 71045; 71046; 71250; 73590; 74018; 75635; 76937; 78452; 80048; 80053; 80061; 80202; 81001; 82565; 82948; 83036; 83605; 83735; 84132; 84155; 84439; 84443; 84484; 85007; 85025; 85027; 85610; 85730; 86850; 86900; 86901; 86920; 87040; 87070; 87077; 87086; 87186; 87205; 88304; 88305; 90715; 93005; 93017; 93306; 93970; 94150; 94640; 94664; 96374; A9502; J0131; J0696; J1100; J1170; J1580; J1650; J1815; J1885; J1940; J2060; J2175; J2250; J2370; J2405; J2543; J2785; J2930; J3010; J3370; J3480; J7030; J7040; J7050; J7120; J7512; J7613; J7626; P9016; P9047; Q9967

== ENCOUNTER 2017-07-24 13:53 | Inpatient (IN) | payer MEDICARE ==
[2017-07-24] VITALS (7 sets, daily range): BP systolic 111–148; BP diastolic 62–79; PULSE 70–105; RESP 18–24; TEMP 99–101; O2SAT 92–99
[~2017-07-24 13:53] MED LIST changes: -ALBU17I INH; +Albuterol-Ipratropium Neb NEB; -COMBAER INH; -DUONI NEB; -FLUTI110I INH; +IPRAAER INH; +LACT PO; +METO25TA3 PO; +PRED5TAB PO; -PROM25TA5 PO; +SYMB80AE INH; +TRAM50 PO
[2017-07-24] MEDS ORDERED: SODIUM CHLORID 0.9% 500 ML INJ 500 ML IV ONE (17:00)
[2017-07-24] MEDS ORDERED: ACETAMINOPHEN 325 MG TAB PO ONE (17:00)
--- NOTE | 2017-07-24 17:34 | RADRPT ---
EXAM DATE/TIME: 07/24/2017 17:12 [facility] COMPARISON: CHEST SINGLE AP, July 07, 2017, 17:08. INDICATIONS : Short of breath and extremity swelling. MEDICAL HISTORY : Chronic obstructive pulmonary disease. SURGICAL HISTORY : None. ENCOUNTER: Initial ACUITY: 1 day PAIN SCORE: 0/10 LOCATION: Bilateral chest FINDINGS: A single view of the chest demonstrates the lungs to be hyperinflated. Partial nodular density in the right upper lobe may be associated with the anterior aspect of the right second rib. Lungs are other [place] clear with some minimal atelectatic changes above the left hemidiaphragm. Heart size is borderli ne prominent a well compensated. Osseous structures are intact. Right IJ central venous catheter seen previously has been removed. CONCLUSION: 1. Hyperinflation characteristic of a reported history of COPD. 2. Possible nodule in the right upper lobe may be associated with the anterior second rib. This is mo re conspicuous on the current exam. CT could be performed for further characterization if clinically warranted Yamil Pozo MD on July 24, 2017 at 17:29 Board Certified Radiologist. This report was verified electronically.
--- NOTE | 2017-07-24 17:38 | PD ---
HPI Chief Complaint: Edema Time Seen by Provider: 16:48 Travel History International Travel<30 days: No Contact w/Intl Traveler<30days: No Traveled to known affect area: No History of Present Illness HPI 66-year-old female with PMH of DM, COPD presents to the ED for evaluation of 2 day history of upper extremity swelling and shortness of breath. Endorses chronic non-productive cough. Patient denies fever, chills, chest pain, palpitations, abdominal pain, nausea, vomiting. She states that she is currently in rehabilitation after spending over a month in the hospital secondary to lower extremity cellulitis. She also complains of rash over the back 2 days. She states that she laid on a latex pillow and thinks that this is the cause of the rash. She endorses mild pruritus. They've been treating at the [facility] with topical emollients with improvement of itching. PFSH Past Medical History Asthma: Yes Atrial Fibrillation: Yes Autoimmune Disease: No Blood Disorders: No Anxiety: No Depression: No Heart Rhythm Problems: Yes (AFIB) Cancer: No Cardiovascular Problems: Yes High Cholesterol: No Chemotherapy: Yes (1993) Chest Pain: No Congestive Heart Failure: No COPD: Yes Diabetes: No Diminished Hearing: No Endocrine: No Genitourinary: No Immune Disorder: No Kidney Stones: Yes Musculoskeletal: No Neurologic: No Psychiatric: No Reproductive: No Respiratory: Yes Radiation Therapy: Yes ?: Not Menopausal: Yes : 3 Para: 2 Miscarriage: 1 Tubal Ligation: Yes (1977) Past Surgical History Abdominal Surgery: Yes (BOWEL OBSTRUCTION-RESECTION R/T ADHESIONS/SCAR TISSUE) Appendectomy: Yes Gynecologic Surgery: Yes (RIGHT BREAST LUMPECTOMY 1995 ) Oral Surgery: Yes (TONSILLECTOMY ) Social History Alcohol Use: No Tobacco Use: Yes (5 per day) Substance Use: No Allergies-Medications (Allergen,Severity, Reaction): Coded Allergies: codeine (Verified Allergy, Severe, 07/24/17) morphine (Unverified Allergy, Severe, Anaphylaxis, 07/24/17) sulfamethoxazole (Verified Allergy, Severe, 07/24/17) trimethoprim (Verified Allergy, Severe, 07/24/17) Reported Meds & Prescriptions Reported Meds & Active Scripts Active Ultram (Tramadol HCl) 50 Mg Tab 50 Mg PO Q6H PRN [Albuterol-Ipratropium Neb] 1 AMPULE Nebu 1 Ampule NEB Q6HR WHILE AWAKE NEB 30 Days Acidophilus/l-Sporogenes (Lactobacillus Acidophilus) 35 Million Cell-25 Million Cell Tab 1 Tab PO TID 14 Days Prednisone 5 Mg Tab 5 Mg PO DAILY Metoprolol Tartrate 25 Mg Tab 25 Mg PO Q12HR Reported Symbicort Inh (Budesonide/Formoterol Fumarate) 80-4.5 Mcg/Act Aero 2 Puff INH Q12HR Combivent Respimat Inh (Ipratropium-Albuterol Inh) 20-100 Senior Living/Act Aero 1 Puff INH QID Review of Systems Except as stated in HPI: all other systems reviewed are Neg Physical Exam Exam Limitations: Other: (exam performed in the ambulance hallway, limited due to privacy issues.) Narrative GENERAL: Well-nourished, well-developed white female in no acute distress. SKIN: Focused skin assessment warm/dry. Patient has very dry and flaky skin over the entire surface skin surface. There is a blanching maculopapular patchy erythematous rash over the shoulders and the mid back. HEAD: Normocephalic. EYES: No scleral icterus. No injection or drainage. NECK: Supple, trachea midline. No JVD or lymphadenopathy. CARDIOVASCULAR: Regular rate and rhythm without murmurs, gallops, or rubs. RESPIRATORY: Breath sounds tight, wheezy bilaterally. No accessory muscle use. GASTROINTESTINAL: Abdomen soft, non-tender, nondistended. MUSCULOSKELETAL: No cyanosis. There is pitting edema of the bilateral upper extremities. There is a clean dry dressing over wound on the left lower extremity. BACK: Nontender without obvious deformity. No CVA tenderness. Data Data Last Documented VS Vital Signs Date Time Temp Pulse Resp B/P (MAP) Pulse Ox O2 Delivery O2 Flow Rate FiO2 07/24/17 22:54 99.0 07/24/17 20:30 96 Nasal Cannula 3.00 07/24/17 20:17 99 24 Orders Orders Sepsis Workup Initiated (07/24/17 ) Electrocardiogram (07/24/17 16:54) Complete Blood Count With Diff (07/24/17 16:54) Comprehensive Metabolic Panel (07/24/17 16:54) Prothrombin Time / Inr (Pt) (07/24/17 16:54) Act Partial Throm Time (Ptt) (07/24/17 16:54) Lactic Acid Sepsis Protocol (07/24/17 16:54) Magnesium (Mg) (07/24/17 16:54) Troponin I (07/24/17 16:54) Urinalysis - C+S If Indicated (07/24/17 16:54) Blood Culture (07/24/17 16:54) Chest, Single Ap (07/24/17 16:54) Blood Glucose (07/24/17 16:54) Ecg Monitoring (07/24/17 16:54) Iv Access Insert/Monitor (07/24/17 16:54) Oximetry (07/24/17 16:54) Oxygen Administration (07/24/17 16:54) Acetaminophen (Tylenol) (07/24/17 17:00) Ct Pulmonary Angiogram (07/24/17 16:54) Sodium Chlorid 0.9% 500 Ml Inj (Ns 500 M (07/24/17 17:00) B-Type Natriuretic Peptide (07/24/17 16:56) Us Arm Venous Doppler Bilat (07/24/17 16:57) Albuterol-Ipratropium Neb (Duoneb Neb) (07/24/17 20:15) Prednisone (Deltasone) (07/24/17 20:15) Influenzae A/B Antigen (07/24/17 20:19) Iohexol 350 Inj (Omnipaque 350 Inj) (07/24/17 21:43) Admit Order (Ed Use Only) (07/24/17 23:03) Labs Laboratory Tests Test 07/24/17 19:15 07/24/17 20:15 White Blood Count 10.6 TH/MM3 Red Blood Count 3.66 MIL/MM3 Hemoglobin 10.6 GM/DL Hematocrit 31.7 % Mean Corpuscular Volume 86.4 FL Mean Corpuscular Hemoglobin 28.9 PG Mean Corpuscular Hemoglobin Concent 33.4 % Red Cell Distribution Width 17.2 % Platelet Count 311 TH/MM3 Mean Platelet Volume 6.7 FL Neutrophils (%) (Auto) 78.0 % Lymphocytes (%) (Auto) 10.7 % Monocytes (%) (Auto) 8.9 % Eosinophils (%) (Auto) 1.7 % Basophils (%) (Auto) 0.7 % Neutrophils # (Auto) 8.3 TH/MM3 Lymphocytes # (Auto) 1.1 TH/MM3 Monocytes # (Auto) 0.9 TH/MM3 Eosinophils # (Auto) 0.2 TH/MM3 Basophils # (Auto) 0.1 TH/MM3 CBC Comment DIFF FINAL Differential Comment Prothrombin Time 10.2 SEC Prothromb Time International Ratio 1.0 RATIO Activated Partial Thromboplast Time 26.1 SEC Blood Urea Nitrogen 10 MG/DL Creatinine 0.78 MG/DL Random Glucose 87 MG/DL Total Protein 5.8 GM/DL Albumin 1.8 GM/DL Calcium Level 8.5 MG/DL Magnesium Level 1.7 MG/DL Alkaline Phosphatase 112 U/L Aspartate Amino Transf (AST/SGOT) 17 U/L Alanine Aminotransferase (ALT/SGPT) 19 U/L Total Bilirubin 0.2 MG/DL Sodium Level 135 MEQ/L Potassium Level 4.9 MEQ/L Chloride Level 101 MEQ/L Carbon Dioxide Level 25.1 MEQ/L Anion Gap 9 MEQ/L Estimat Glomerular Filtration Rate 74 ML/MIN Lactic Acid Level 1.8 mmol/L Troponin I LESS THAN 0.02 NG/ML B-Type Natriuretic Peptide 71 PG/ML Urine Color YELLOW Urine Turbidity CLEAR Urine pH 6.0 Urine Specific Bruno 1.011 Urine Protein NEG mg/dL Urine Glucose (UA) 70 mg/dL Urine Ketones NEG mg/dL Urine Occult Blood NEG Urine Nitrite NEG Urine Bilirubin NEG Urine Urobilinogen LESS THAN 2.0 MG/DL Urine Leukocyte Esterase SMALL Urine RBC 3 /hpf Urine WBC 3 /hpf Urine Squamous Epithelial Cells 2 /hpf Microscopic Urinalysis Comment CULT NOT INDICATED MDM Medical Decision Making Medical Screen Exam Complete: Yes Emergency Medical Condition: Yes Differential Diagnosis COPD exacerbation versus malnutrition versus DVT versus PE versus metabolic derangement versus pneumonia versus other Narrative Course 66-year-old female with PMH of DM, COPD presents to the ED for evaluation of 2 day history of upper extremity swelling and shortness of breath. Endorses chronic non-productive cough. Patient denies fever, chills, chest pain, palpitations, abdominal pain, nausea, vomiting. She states that she is currently in rehabilitation after spending over a month in the hospital secondary to lower extremity cellulitis. She also complains of rash over the back 2 days. She endorses mild pruritus. They've been treating at the [facility] with topical emollients with improvement of itching. 9.1, respiratory rate 22, pulse ox 92 on presentation. On exam the patient has edema in the bilateral upper extremities, wheezy and tight breath sounds. There is a chronic wound of the left lower extremity with a clean and dry dressing. There is also a mention , patchy, erythematous rash on the back. Patient was administered half liter of normal saline, 650 of Tylenol, 20 mg Deltasone and 2 nebs 3. Lab work, radiological studies ordered and pending. The patient was evaluated in the ambulance hallway and is awaiting a medical bed placement. Please see the oncoming provider's notes for disposition. Taty Whyte Jul 24, 2017 17:38
--- NOTE | 2017-07-24 19:02 | RADRPT ---
EXAM DATE/TIME: 07/24/2017 18:07 [facility] COMPARISON: US ARM BILATERAL VENOUS DOPPLER, July 06, 2017, 20:27. INDICATIONS : Bilateral arm swelling. MEDICAL HISTORY : Renal calculi. Afib. Palpitations. COPD. Asthma. Sputum production. Dyspena. Anxiety. SURGICAL HISTORY : Tonsillectomy.Appendectomy. Tubal ligation.Bowel obstruction resection. Right breast lumpectomy. Chem otherapy. Radiation therapy. ENCOUNTER: Subsequent ACUITY: 1 week PAIN SCORE: 9/10 LOCATION: Bilateral arms. FINDINGS: RIGHT UPPER EXTREMITY: There is spontaneous flow documented in the brachial, basilic, cephalic, axillary, and subclavian vei ns. The vessels are compressible and augmentation response is documented. No filling defects are se en. The flow is phasic with respiration. Direction of flow in the jugular vein is caudal. LEFT UPPER EXTREMITY: There is spontaneous flow documented in the brachial, basilic, cephalic, axillary, and subclavian vei ns. The vessels are compressible and augmentation response is documented. No filling defects are se en. The flow is phasic with respiration. Direction of flow in the jugular vein is caudal. CONCLUSION: The study is negative for upper extremity deep venous thrombosis. Frankie Duncan MD on July 24, 2017 at 19:00 Board Certified Radiologist. This report was verified electronically.
[2017-07-24 20:02] LABS: AUTOMATED NEUTROPHIL # 8.3 TH/MM3 (1.8-7.7); BASOPHIL # 0.1 TH/MM3 (0-0.2); BASOPHIL % 0.7 % (0.0-2.0); EOSINOPHIL # 0.2 TH/MM3 (0-0.4); EOSINOPHIL % 1.7 % (0.0-4.0); HEMATOCRIT 31.7 % (35.0-46.0); HEMOGLOBIN 10.6 GM/DL (11.6-15.3); LYMPH % 10.7 % (9.0-44.0); LYMPHOCYTE # 1.1 TH/MM3 (1.0-4.8); MEAN CELL VOLUME 86.4 FL (80.0-100.0); MEAN CORPUSCULAR HEMOGLOBIN 28.9 PG (27.0-34.0); MEAN CORPUSCULAR HGB CONC 33.4 % (32.0-36.0); MEAN PLATELET VOLUME 6.7 FL (7.0-11.0); MONO % 8.9 % (0.0-8.0); MONOCYTE # 0.9 TH/MM3 (0-0.9); PLATELET COUNT 311 TH/MM3 (150-450); RED BLOOD COUNT 3.66 MIL/MM3 (4.00-5.30); RED CELL DISTRIBUTION WIDTH 17.2 % (11.6-17.2); WHITE BLOOD COUNT 10.6 TH/MM3 (4.0-11.0)
[2017-07-24] MEDS: RESP: ALBUTEROL 2.5 MG/IPRATROPIUM 0.5 MG NEB (SCH) INH ×2 (20:15→20:30)
[2017-07-24] MEDS ORDERED: predniSONE 20 MG TAB PO ONE (20:15)
--- NOTE | 2017-07-24 20:18 | PD ---
Physical Exam Date Seen by Provider: Jul 24, 2017 Narrative 66-year-old female with a history of end-stage COPD presents emergency department from [facility] with concerns of upper extremity swelling and shortness of breath that started 3-4 days ago. Says that she takes prednisone 10 mg daily and is on oxygen 2 L/min 24 hours a day. Currently, patient denies chest pain, fever, chills, nausea, vomiting, diarrhea. States that she has a rash that began approximately 4 days ago after being placed in indigo manner. States that she had a pillow that became on covered from the pillowcase and believes that she has an allergy to latex. States that she began having to widespread peeling of her skin. Says that the facility has used a step Desitin with good results relief of the itching. Patient states that she has had a chronic right lower extremity wound in which she has received daily wound care. States that she received wound care today. Patient states that she was diagnosed with proximal breast cancer 1993 and had a subsequent lumpectomy with radiation and chemotherapy. Patient does not currently follow a bilingual spanish inbound sales or oncologist. 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 Says that she had a heart cath 2 years ago which was normal. Patient does not follow cardiology. No history of VT or congestive heart failure. Data Data Last Documented VS Vital Signs Date Time Temp Pulse Resp B/P (MAP) Pulse Ox O2 Delivery O2 Flow Rate FiO2 07/24/17 22:54 99.0 07/24/17 20:30 96 Nasal Cannula 3.00 07/24/17 20:17 99 24 Orders Orders Sepsis Workup Initiated (07/24/17 ) Electrocardiogram (07/24/17 16:54) Complete Blood Count With Diff (07/24/17 16:54) Comprehensive Metabolic Panel (07/24/17 16:54) Prothrombin Time / Inr (Pt) (07/24/17 16:54) Act Partial Throm Time (Ptt) (07/24/17 16:54) Lactic Acid Sepsis Protocol (07/24/17 16:54) Magnesium (Mg) (07/24/17 16:54) Troponin I (07/24/17 16:54) Urinalysis - C+S If Indicated (07/24/17 16:54) Blood Culture (07/24/17 16:54) Chest, Single Ap (07/24/17 16:54) Blood Glucose (07/24/17 16:54) Ecg Monitoring (07/24/17 16:54) Iv Access Insert/Monitor (07/24/17 16:54) Oximetry (07/24/17 16:54) Oxygen Administration (07/24/17 16:54) Acetaminophen (Tylenol) (07/24/17 17:00) Ct Pulmonary Angiogram (07/24/17 16:54) Sodium Chlorid 0.9% 500 Ml Inj (Ns 500 M (07/24/17 17:00) B-Type Natriuretic Peptide (07/24/17 16:56) Us Arm Venous Doppler Bilat (07/24/17 16:57) Albuterol-Ipratropium Neb (Duoneb Neb) (07/24/17 20:15) Prednisone (Deltasone) (07/24/17 20:15) Influenzae A/B Antigen (07/24/17 20:19) Iohexol 350 Inj (Omnipaque 350 Inj) (07/24/17 21:43) Admit Order (Ed Use Only) (07/24/17 23:03) Labs Laboratory Tests Test 07/24/17 19:15 07/24/17 20:15 White Blood Count 10.6 TH/MM3 Red Blood Count 3.66 MIL/MM3 Hemoglobin 10.6 GM/DL Hematocrit 31.7 % Mean Corpuscular Volume 86.4 FL Mean Corpuscular Hemoglobin 28.9 PG Mean Corpuscular Hemoglobin Concent 33.4 % Red Cell Distribution Width 17.2 % Platelet Count 311 TH/MM3 Mean Platelet Volume 6.7 FL Neutrophils (%) (Auto) 78.0 % Lymphocytes (%) (Auto) 10.7 % Monocytes (%) (Auto) 8.9 % Eosinophils (%) (Auto) 1.7 % Basophils (%) (Auto) 0.7 % Neutrophils # (Auto) 8.3 TH/MM3 Lymphocytes # (Auto) 1.1 TH/MM3 Monocytes # (Auto) 0.9 TH/MM3 Eosinophils # (Auto) 0.2 TH/MM3 Basophils # (Auto) 0.1 TH/MM3 CBC Comment DIFF FINAL Differential Comment Prothrombin Time 10.2 SEC Prothromb Time International Ratio 1.0 RATIO Activated Partial Thromboplast Time 26.1 SEC Blood Urea Nitrogen 10 MG/DL Creatinine 0.78 MG/DL Random Glucose 87 MG/DL Total Protein 5.8 GM/DL Albumin 1.8 GM/DL Calcium Level 8.5 MG/DL Magnesium Level 1.7 MG/DL Alkaline Phosphatase 112 U/L Aspartate Amino Transf (AST/SGOT) 17 U/L Alanine Aminotransferase (ALT/SGPT) 19 U/L Total Bilirubin 0.2 MG/DL Sodium Level 135 MEQ/L Potassium Level 4.9 MEQ/L Chloride Level 101 MEQ/L Carbon Dioxide Level 25.1 MEQ/L Anion Gap 9 MEQ/L Estimat Glomerular Filtration Rate 74 ML/MIN Lactic Acid Level 1.8 mmol/L Troponin I LESS THAN 0.02 NG/ML B-Type Natriuretic Peptide 71 PG/ML Urine Color YELLOW Urine Turbidity CLEAR Urine pH 6.0 Urine Specific Sawyer 1.011 Urine Protein NEG mg/dL Urine Glucose (UA) 70 mg/dL Urine Ketones NEG mg/dL Urine Occult Blood NEG Urine Nitrite NEG Urine Bilirubin NEG Urine Urobilinogen LESS THAN 2.0 MG/DL Urine Leukocyte Esterase SMALL Urine RBC 3 /hpf Urine WBC 3 /hpf Urine Squamous Epithelial Cells 2 /hpf Microscopic Urinalysis Comment CULT NOT INDICATED MDM Medical Record Reviewed: Yes Supervised Visit with MELINDA: Yes Differential Diagnosis Chronic right lower extremity ulcer, cellulitis, erysipelas End-stage COPD, pulmonary embolism, lung cancer anasarca, liver failure, medication noncompliance. Narrative Course 66-year-old female with end-stage COPD presents emergency department from [place] [facility] with concerns of bilateral upper extremity swelling and increased shortness of breath over the last 3-4 days. This patient was received from [facility]. Patient says she did not take her medications today to include her DuoNeb's. Patient presents with a fever of 101.0, decreased to 100.2 after tylenol. HR upper 90s, SaO2 97% on 2LPM O2. Patient states that she had not received any of her medications today to include her duo nebs. The exam demonstrates a 66-year-old female well developed, well-nourished. Mood bases, diffuse peeling of skin without significant erythema. Papular rash over upper right extremity and entire back area becoming confluent in the back. Bilateral lung farrell with rales versus rhonchi. EKG shows sinus rhythm Duo nebs 2, prednisone 20 mg administered. Because patient's rash started after her admission to [place] [facility], I am concerned about a scabies versus bed bug infection. Patient believes this is secondary to a pillow that was covered with latex but she has no prior history of a latex allergy. CBC & BMP Diagram 07/24/17 19:15 Total Protein 5.8 L, Albumin 1.8 L, Calcium Level 8.5, Magnesium Level 1.7, Alkaline Phosphatase 112, Aspartate Amino Transf (AST/SGOT) 17, Alanine Aminotransferase (ALT/SGPT) 19, Total Bilirubin 0.2 Pt noted to have low albumin and total protein. Concerning for anasarca. Lactic 1.8. Last Impressions Upper Extremity Ultrasound 07/24/171656 Signed Impressions: Service Date/Time: Monday, July 24, 2017 18:07 - CONCLUSION: The study is negative for upper extremity deep venous thrombosis. Frankie Duncan MD Chest X-Ray 07/24/171653 Signed Impressions: Service Date/Time: Monday, July 24, 2017 17:12 - CONCLUSION: 1. Hyperinflation characteristic of a reported history of COPD. 2. Possible nodule in the right upper lobe may be associated with the anterior second rib. This is more conspicuous on the current exam. CT could be performed for further characterization if clinically warranted Yamil Pozo MD CT Angiography [id number]/171653 Signed Impressions: Service Date/Time: Monday, July 24, 2017 21:39 - CONCLUSION: 1. The study is negative for pulmonary embolism. 2. Severe emphysema, multifocal parenchymal scarring, unchanged from 06/24/17. Frankie Duncan MD Patient should be admitted for observation for COPD exacerbation. I spoke with Dr. Blank who recommended she be placed in observation under Dr. Eason. Diagnosis Primary Impression: Open leg wound Qualified Codes: S81.801A - Unspecified open wound, right lower leg, initial encounter Additional Impressions: Rash COPD exacerbation Hypoalbuminemia Anasarca Admitting Information Admitting Physician Requests: Observation Condition: Stable Monique Silverman Jul 24, 2017 20:18
[2017-07-24 20:23] LABS: ALBUMIN 1.8 GM/DL (3.4-5.0); AST (GOT) 17 U/L (15-37); BICARBONATE 25.1 MEQ/L (21.0-32.0); BLOOD UREA NITROGEN 10 MG/DL (7-18); CALCIUM 8.5 MG/DL (8.5-10.1); CHLORIDE 101 MEQ/L (98-107); CREATININE 0.78 MG/DL (0.50-1.00); GLOMERULAR FILTRATION RATE 74 ML/MIN (>89); GLUCOSE,RANDOM 87 MG/DL (74-106); MAGNESIUM 1.7 MG/DL (1.5-2.5); SODIUM (NA) 135 MEQ/L (136-145)
[2017-07-24 20:26] LABS: ALKALINE PHOSPHATASE 112 U/L (45-117); ALT (GPT) 19 U/L (10-53); TOTAL BILIRUBIN ADULT 0.2 MG/DL (0.2-1.0); TOTAL PROTEIN 5.8 GM/DL (6.4-8.2); TROPONIN I LESS THAN 0.02 NG/ML (0.02-0.05)
[2017-07-24 21:03] LABS: BILIRUBIN, URINE NEG (NEG); BLOOD, URINE NEG (NEG); GLUCOSE,URINE 70 mg/dL (NEG); KETONE, URINE NEG (NEG); NITRITE,URINE NEG (NEG); SQUAMOUS EPITHELIAL CELL URINE 2 /hpf (0-5); URINE COLOR YELLOW (YELLW/STRAW); URINE LEUKOCYTE ESTERASE SMALL (NEG)
[2017-07-24 21:18] LABS: PROTHROMBIN TIME - PATIENT 10.2 SEC (9.8-11.6)
[2017-07-24] MEDS ORDERED: IOHEXOL 350 MG/ML 10 ML VIAL (for RAD DIAG) IVCONTRAST ONE (21:43)
--- NOTE | 2017-07-24 22:02 | RADRPT ---
EXAM DATE/TIME: 07/24/2017 21:39 [place] COMPARISON: CT THORAX W/O CONTRAST, June 24, 2017, 16:21. INDICATIONS : Shortness of breath. IV CONTRAST: 75 cc Omnipaque 350 (iohexol) IV RADIATION DOSE: 9.06 CTDIvol (mGy) MEDICAL HISTORY : Cardiovascular disease. Chronic obstructive pulmonary disease. SURGICAL HISTORY : Tubal ligation. ENCOUNTER: Initial ACUITY: 1 day PAIN SCALE: 5/10 LOCATION: Bilateral chest TECHNIQUE: Volumetric scanning of the chest was performed using a pulmonary embolism protocol MIP images were re constructed. Using automated exposure control and adjustment of the mA and/or kV according to patien t size, radiation dose was kept as low as reasonably achievable to obtain optimal diagnostic quality images. DICOM format image data is available electronically for review and comparison. Follow-up recommendations for detected pulmonary nodules are based at a minimum on nodule size and pa tient risk factors according to Fleischner Society Guidelines. FINDINGS: PULMONARY ARTERIES: No filling defects are seen in the pulmonary arteries through the segmental level. LUNGS: Bullous emphysema in the upper lobes, scattered areas of scarring in both lungs, the largest located in the posterior right upper lung; these are unchanged in appearance when compared to CT thorax 8. PLEURAE: There is no pleural thickening or pleural effusion. MEDIASTINUM: There is good visualization of the great vessels of the middle mediastinum. No evidence of mediastin al or hilar adenopathy/mass. CONCLUSION: 1. The study is negative for pulmonary embolism. 2. Severe emphysema, multifocal parenchymal scarring, unchanged from 06/24/17. Frankie Duncan MD on July 24, 2017 at 21:58 Board Certified Radiologist. This report was verified electronically.
[2017-07-24] MEDS ORDERED: traMADol HCL 50 MG TAB PO PRN (23:45)
[2017-07-25] MEDS: RESP: ALBUTEROL 2.5 MG/IPRATROPIUM 0.5 MG NEB (PRN) NEB ×2 (04:20→12:41)
[2017-07-25 06:42] VITALS: BP 117/79; PULSE 98; RESP 16; O2SAT 98
[2017-07-25] MEDS ORDERED: GLUCAGON 1 MG/ML VIAL OTHER PRN (07:30)
[2017-07-25] MEDS ORDERED: DEXTROSE 50% IN WATER 50 ML VIAL(D50) IV PUSH PRN (07:30)
--- NOTE | 2017-07-25 07:42 | HHI.HP ---
HPI Service [facility] Hospitalists Primary Care Physician Paola Monzon MD Admission Diagnosis COPD exacerbation with bronchitis, hypoxia Chief Complaint: upper extremity swelling and SOB x 3-4 days Travel History International Travel<30 Days: No Contact w/Intl Traveler <30 Da: No Traveled to Known Affected Are: No History of Present Illness This is a 66-year-old female with PMH of COPD intermediate tobacco use, obstruction and questionable diabetes and breast cancer. Patient was recently hospitalized from June 13, 2017 to July 17, 2017 for lower extremity wound. Patient underwent multiple debridement with wound VAC placement. Patient was unable to tolerate bedside without changes and was discharged to [facility]. Twice 2015 on wet-to-dry dressing changes. Patient presents to the emergency department yesterday with complaints of right upper extremity swelling and worsening shortness of breath for the past 2-3 days. Patient does have severe COPD and is on chronic daily steroid use prednisone 10 mg per day. Past Family Social History Past Medical History COPD, asthma Long-term tobacco use History of bowel obstruction Questionable diabetes History of breast cancer chronic nonhealing wound RLE Past Surgical History Right breast lumpectomy with subsequent radiation therapy 1996 Partial colon resection due to obstruction Pt underwent surgical debridement with wound vac placement on 06/15/[address] Clark - Pt underwent a vac change in OR on 06/17/17, 06/19, 06/21, 06/23, 06/26 - Pt has wound vac change at bedside on 06/30/17, 07/04/17 Reported Medications Ultram (Tramadol HCl) 50 Mg Tab 50 Mg PO Q6H PRN [Albuterol-Ipratropium Neb] 1 AMPULE Nebu 1 Ampule NEB Q6HR WHILE AWAKE NEB 30 Days Acidophilus/l-Sporogenes (Lactobacillus Acidophilus) 35 Million Cell-25 Million Cell Tab 1 Tab PO TID 14 Days Prednisone 5 Mg Tab 5 Mg PO DAILY Metoprolol Tartrate 25 Mg Tab 25 Mg PO Q12HR Symbicort Inh (Budesonide/Formoterol Fumarate) 80-4.5 Mcg/Act Aero 2 Puff INH Q12HR Combivent Respimat Inh (Ipratropium-Albuterol Inh) 20-100 Senior Care/Act Aero 1 Puff INH QID Allergies: Coded Allergies: codeine (Verified Allergy, Severe, 07/24/17) morphine (Unverified Allergy, Severe, Anaphylaxis, 07/24/17) sulfamethoxazole (Verified Allergy, Severe, 07/24/17) trimethoprim (Verified Allergy, Severe, 07/24/17) Family History Father of coronary artery disease Mother at an old age but was a "hypochondriac." Social History She currently smokes 5-6 cigarettes per day but has smoked up to one pack per day in the past. She has smoked cigarettes for over 45 years. 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 Physical Exam Vital Signs Vital Signs Date Time Temp Pulse Resp B/P (MAP) Pulse Ox O2 Delivery O2 Flow Rate FiO2 07/25/17 06:42 98 16 117/79 (92) 98 Room Air 07/24/17 23:45 105 24 142/69 (93) 96 Nasal Cannula 2.00 07/24/17 22:54 99.0 07/24/17 20:30 96 Nasal Cannula 3.00 07/24/17 20:17 97 Nasal Cannula 2.00 07/24/17 20:17 99 24 148/75 (99) 97 Nasal Cannula 2.00 07/24/17 20:17 100.2 148/75 (99) 07/24/17 18:00 101.0 07/24/17 17:27 95 18 126/79 (95) 99 Room Air 07/24/17 14:01 99.1 70 22 111/62 (78) 92 Physical Exam GENERAL: This is a well-nourished, well-developed patient, in no apparent distress. SKIN: generalized peeling of skin after drug eruption rash. edema LUE HEAD: Atraumatic. Normocephalic. No temporal or scalp tenderness. EYES: Extraocular motions intact. No scleral icterus. No injection or drainage. CARDIOVASCULAR: Regular rate and rhythm RESPIRATORY: decreased air entry with scattered expiratory wheezing GASTROINTESTINAL: Abdomen soft, non-tender, nondistended. No hepato-splenomegaly , or palpable masses. No guarding. MUSCULOSKELETAL: Extremities without clubbing, cyanosis, or edema. No joint tenderness, effusion, or edema noted. No calf tenderness. Negative Homans sign bilaterally. NEUROLOGICAL: Awake and alert. Motor and sensory grossly within normal limits. Normal speech. Laboratory Laboratory Tests Test 07/24/17 19:15 07/24/17 20:15 White Blood Count 10.6 Red Blood Count 3.66 Hemoglobin 10.6 Hematocrit 31.7 Mean Corpuscular Volume 86.4 Mean Corpuscular Hemoglobin 28.9 Mean Corpuscular Hemoglobin Concent 33.4 Red Cell Distribution Width 17.2 Platelet Count 311 Mean Platelet Volume 6.7 Neutrophils (%) (Auto) 78.0 Lymphocytes (%) (Auto) 10.7 Monocytes (%) (Auto) 8.9 Eosinophils (%) (Auto) 1.7 Basophils (%) (Auto) 0.7 Neutrophils # (Auto) 8.3 Lymphocytes # (Auto) 1.1 Monocytes # (Auto) 0.9 Eosinophils # (Auto) 0.2 Basophils # (Auto) 0.1 CBC Comment DIFF FINAL Differential Comment Prothrombin Time 10.2 Prothromb Time International Ratio 1.0 Activated Partial Thromboplast Time 26.1 Blood Urea Nitrogen 10 Creatinine 0.78 Random Glucose 87 Total Protein 5.8 Albumin 1.8 Calcium Level 8.5 Magnesium Level 1.7 Alkaline Phosphatase 112 Aspartate Amino Transf (AST/SGOT) 17 Alanine Aminotransferase (ALT/SGPT) 19 Total Bilirubin 0.2 Sodium Level 135 Potassium Level 4.9 Chloride Level 101 Carbon Dioxide Level 25.1 Anion Gap 9 Estimat Glomerular Filtration Rate 74 Lactic Acid Level 1.8 Troponin I LESS THAN 0.02 B-Type Natriuretic Peptide 71 Urine Color YELLOW Urine Turbidity CLEAR Urine pH 6.0 Urine Specific Waddy 1.011 Urine Protein NEG Urine Glucose (UA) 70 Urine Ketones NEG Urine Occult Blood NEG Urine Nitrite NEG Urine Bilirubin NEG Urine Urobilinogen LESS THAN 2.0 Urine Leukocyte Esterase SMALL Urine RBC 3 Urine WBC 3 Urine Squamous Epithelial Cells 2 Microscopic Urinalysis Comment CULT NOT INDICATED Date/Time Source Procedure Growth Status 07/24/17 19:18 Blood Peripheral Aerobic Blood Culture Pending Received 07/24/17 19:18 Blood Peripheral Anaerobic Blood Culture Pending Received 07/24/17 20:40 Nasal Aspirate Influenza Types A,B Antigen (INGA) - Final NEGATIVE FOR FLU A AND B ANTIGEN.... Complete Result Diagram: 07/24/17191407/24/171914 Imaging Last Impressions Upper Extremity Ultrasound 07/24/17 1857 Signed Impressions: Service Date/Time: Monday, July 24, 2017 18:07 - CONCLUSION: The study is negative for upper extremity deep venous thrombosis. Frankie Duncan MD Chest X-Ray 07/24/171653 Signed Impressions: Service Date/Time: Monday, July 24, 2017 17:12 - CONCLUSION: 1. Hyperinflation characteristic of a reported history of COPD. 2. Possible nodule in the right upper lobe may be associated with the anterior second rib. This is more conspicuous on the current exam. CT could be performed for further characterization if clinically warranted Yamil Pozo MD CT Angiography 07/24/171653 Signed Impressions: Service Date/Time: Monday, July 24, 2017 21:39 - CONCLUSION: 1. The study is negative for pulmonary embolism. 2. Severe emphysema, multifocal parenchymal scarring, unchanged from 06/24/17. Frankie Duncan MD Capsrinivas VTE Risk Assessment Caprini VTE Risk Assessment: Mod/High Risk (score >= 2) Caprini Risk Assessment Model Point Value = 1 Point Value = 2 Point Value = 3 Point Value = 5 Age 41-60 Minor surgery BMI > 25 kg/m2 Swollen legs Varicose veins or History of unexplained or recurrent spontaneous Oral contraceptives or hormone replacement Sepsis (< 1 month) Serious lung disease, including pneumonia (< 1 month) Abnormal pulmonary function Acute myocardial infarction Congestive heart failure (< 1 month) History of inflammatory bowel disease Medical patient at bed rest Age 61-74 Arthroscopic surgery Major open surgery (> 45 min) Laparoscopic surgery (> 45 min) Malignancy Confined to bed (> 72 hours) Immobilizing plaster cast Central venous access Age >= 75 History of VTE Family history of VTE Factor V Leiden Prothrombin [id number] Lupus anticoagulant Anticardiolipin antibodies Elevated serum homocysteine Heparin-induced thrombocytopenia Other congenital or acquired thrombophilia Stroke (< 1 month) Elective arthroplasty Hip, pelvis, or leg fracture Acute spinal cord injury (< 1 month) Prophylaxis Regimen Total Risk Factor Score Risk Level Prophylaxis Regimen 0-1 Low Early ambulation 2 Moderate Order ONE of the following: *Sequential Compression Device (SCD) *Heparin 5000 units SQ BID 3-4 Higher Order ONE of the following medications: *Heparin 5000 units SQ TID *Enoxaparin/Lovenox 40 mg SQ daily (WT < 150 kg, CrCl > 30 mL/min) *Enoxaparin/Lovenox 30 mg SQ daily (WT < 150 kg, CrCl > 10-29 mL/min) *Enoxaparin/Lovenox 30 mg SQ BID (WT < 150 kg, CrCl > 30 mL/min) AND/OR *Sequential Compression Device (SCD) 5 or more Highest Order ONE of the following medications: *Heparin 5000 units SQ TID (Preferred with Epidurals) *Enoxaparin/Lovenox 40 mg SQ daily (WT < 150 kg, CrCl > 30 mL/min) *Enoxaparin/Lovenox 30 mg SQ daily (WT < 150 kg, CrCl > 10-29 mL/min) *Enoxaparin/Lovenox 30 mg SQ BID (WT < 150 kg, CrCl > 30 mL/min) AND *Sequential Compression Device (SCD) Assessment and Plan Problem List: (1) COPD exacerbation ICD Codes: J44.1 - Chronic obstructive pulmonary disease with (acute) exacerbation Status: Acute Plan: COPD acute exacerbation with bronchitis - Duo nebs every 4 hours and when necessary - Continue patient's home Symbicort and Combivent - Hold by mouth prednisone patient temporarily placed on Solu-Medrol 40 mg IV twice a day - Chest x-ray reviewed and reveals: Hyperinflation characteristic of a reported history of COPD. Possible nodular in the right upper lobe may be associated with the anterior second rib. There this is more conspicuous on the current exam. CT could be performed for further characteristic of clinically warranted. CT is suggested in 6 months as a conservative follow up, to be checked by PCP. - CT angiogram reviewed and reveals: Negative for pulmonary embolism. Severe emphysema and multifocal parenchymal scarring, unchanged from 06/24/2017 Right upper extremity edema - right upper extremity US negative for upper extremity DVT - monitor for s/s of cellulitis RLE nonhealing wound - Recent admission from June 13, 2017 to July 17, 2017 for large, necrotic open wound right lower extremity x 2 months. - Pt underwent surgical debridement with wound vac placement on 06/15/[address] Clark - Pt underwent multiple vac changes under anesthesia on 06/17/17, 06/19, 06/21, 06/23, 06/26 - Pt was very painful with bedside wound VAC change 07/07 despite PO Dilaudid - Case d/w General Surgery, Dr. Knight (07/07). Dressing changed to wet-to -dry and pt has been tolerating bedside dressing changes - CTA with runoff (07/08) Moderate to severe atherosclerotic disease of aorta without aneurysm. Blood flow in both lower extremities is maintained with good perfusion appreciated to the distal legs bilaterally. No high-grade stenosis or occlusion is visualized. The nonvascular structures visualized demonstrate no acute finding. - RLE daily dressing changes to wet-to-dry - Pain control PRN with Ultram Rash - rash improving - Unlikely to be infectious Tachycardia - Outpt 2D echo (04/03/17) --> Mild concentric LVH, Estimated EF 50%, Grade 1 diastolic dysfunction, Moderate mitral valve regurg, Mild tricuspid valve regurg, Normal estimated PA pressure, 32.7mmHg - Telemetry with noted sinus tachycardia - EKG in the ED noted sinus tachycardia - repeat EKG (06/23) --> sinus tachycardia, 109, with occasional PVC - continue Ultram PRN. add acetaminophen scheduled. Patient does not want stronger pain medication. She is fearful of sedation/side effects - suspect pain, anxiety, COPD, and prednisone are all contributing - Lexiscan requested per Dr. Parsons, but patient refused at that time - Pt has run VT on 07/02. Cardiology consulted. - Lexiscan (07/02) --> reviewed with Radiology. EF 61%, subtle inferior/ basilar wall reversible defect - echocardiogram (07/04) --> EF 60-65% - metoprolol 25mg BID and HR has been controlled Hyperglycemia - Pt likely with steroid induced hyperglycemia with her prolonged steroid use - Hgb A1C is 8.6% - She has been having some intermittent issues with hypoglycemia - NovoLog SSI - Accu checks ACHS Assessment and Plan Patient examined. Assessment and plan formulated with Radha Bansal PA-C. I agree with the above. copd flare. on steroids/nebs. chronic leg wound..wound care. ue not obvious cellulitis. hold off abx. plan for return to snf. Radha Bansal Jul 25, 2017 07:42 Ellis Eason MD Jul 25, 2017 16:56
[2017-07-25] MEDS ORDERED: INSULIN ASPART SUPPLEMENTAL SCALE SQ SCH (08:00)
[2017-07-25] MEDS: INSULIN ASPART SUPPLEMENTAL SCALE SQ SCH ×4 (08:00→21:14)
[2017-07-25] MEDS ORDERED: NON-FORMULARY DRUG (Ipratropium-Albuterol Inh (Combivent Respimat Inh) 1 PUFF) INH SCH (09:00)
[2017-07-25 09:08] VITALS: BP 125/89; PULSE 92; RESP 20; O2SAT 97
[2017-07-25] MEDS: LACTOBACILLUS ACIDOPHILUS TAB PO SCH ×3 (10:34→17:45)
[2017-07-25] MEDS: methylPREDNISolone SOD SUCC 40 MG/1 ML VIAL IV PUSH SCH ×2 (10:34→21:03)
[2017-07-25] MEDS: METOPROLOL TARTRATE 25 MG TAB PO SCH ×2 (10:35→21:03)
[2017-07-25 12:44] VITALS: O2SAT 97
[2017-07-25] MEDS: BUDESONIDE-FORMOTEROL 80/4.5 MCG INHALER INH SCH ×2 (13:53→21:04)
[2017-07-25] MEDS: RESP: ALBUTEROL 2.5 MG/IPRATROPIUM 0.5 MG NEB (SCH) NEB ×2 (16:00→18:36)
[2017-07-25] MEDS ORDERED: CLINDAMYCIN 900 MG/NS PREMIX 50 ML IV SCH (16:00)
[2017-07-25 17:05] VITALS: BP 121/79; PULSE 90; RESP 18; TEMP 97.9; O2SAT 93
--- NOTE | 2017-07-25 18:53 | EKG ---
Date Performed: 07/24/2017 Time Performed: 19:55:47 PTAGE: 66 years EKG: ATRIAL FIBRILLATION ABNORMAL RHYTHM ECG Since the prior tracing, there has been no signific ant change PREVIOUS TRACING : 07/05/2017 14.26 DOCTOR: Awais Vallejo Interpretating Date/Time 07/25/2017 18:50:14
[2017-07-25 19:38] VITALS: BP 115/62; PULSE 102; RESP 16; TEMP 97.5; O2SAT 91
[2017-07-25 23:39] VITALS: BP 108/65; PULSE 86; RESP 15; TEMP 97.9; O2SAT 92
[2017-07-26] VITALS (12 sets, daily range): BP systolic 110–149; BP diastolic 60–82; PULSE 77–105; RESP 17–20; TEMP 97.7–98.5; O2SAT 90–99
[2017-07-26] MEDS: RESP: ALBUTEROL 2.5 MG/IPRATROPIUM 0.5 MG NEB (SCH) NEB ×4 (07:50→21:40)
[2017-07-26] MEDS: INSULIN ASPART SUPPLEMENTAL SCALE SQ SCH ×4 (08:47→21:59)
--- NOTE | 2017-07-26 09:29 | HHI.PR ---
Subjective Remarks Pt is feeling better than she did at admission but still feeling quite SOB. She is able to eat meals slowly without feeling extremely SOB Her LUE is still swollen but is improving per the pt. Objective Vitals Vital Signs Date Time Temp Pulse Resp B/P (MAP) Pulse Ox O2 Delivery O2 Flow Rate FiO2 07/26/17 08:50 97.7 92 20 110/76 (87) 96 07/26/17 04:59 92 07/26/17 04:35 97.7 84 17 134/60 (84) 92 07/26/17 04:04 77 07/26/17 02:37 88 07/26/17 00:31 82 07/25/17 23:39 97.9 86 15 108/65 (79) 92 07/25/17 19:38 97.5 102 16 115/62 (79) 91 07/25/17 17:05 97.9 90 18 121/79 (93) 93 07/25/17 12:44 97 Nasal Cannula 2.00 Result Diagram: 07/24/17191407/24/171914 Other Results Laboratory Tests Test 07/24/17 19:15 07/24/17 20:15 White Blood Count 10.6 TH/MM3 Red Blood Count 3.66 MIL/MM3 Hemoglobin 10.6 GM/DL Hematocrit 31.7 % Mean Corpuscular Volume 86.4 FL Mean Corpuscular Hemoglobin 28.9 PG Mean Corpuscular Hemoglobin Concent 33.4 % Red Cell Distribution Width 17.2 % Platelet Count 311 TH/MM3 Mean Platelet Volume 6.7 FL Neutrophils (%) (Auto) 78.0 % Lymphocytes (%) (Auto) 10.7 % Monocytes (%) (Auto) 8.9 % Eosinophils (%) (Auto) 1.7 % Basophils (%) (Auto) 0.7 % Neutrophils # (Auto) 8.3 TH/MM3 Lymphocytes # (Auto) 1.1 TH/MM3 Monocytes # (Auto) 0.9 TH/MM3 Eosinophils # (Auto) 0.2 TH/MM3 Basophils # (Auto) 0.1 TH/MM3 CBC Comment DIFF FINAL Differential Comment Prothrombin Time 10.2 SEC Prothromb Time International Ratio 1.0 RATIO Activated Partial Thromboplast Time 26.1 SEC Blood Urea Nitrogen 10 MG/DL Creatinine 0.78 MG/DL Random Glucose 87 MG/DL Total Protein 5.8 GM/DL Albumin 1.8 GM/DL Calcium Level 8.5 MG/DL Magnesium Level 1.7 MG/DL Alkaline Phosphatase 112 U/L Aspartate Amino Transf (AST/SGOT) 17 U/L Alanine Aminotransferase (ALT/SGPT) 19 U/L Total Bilirubin 0.2 MG/DL Sodium Level 135 MEQ/L Potassium Level 4.9 MEQ/L Chloride Level 101 MEQ/L Carbon Dioxide Level 25.1 MEQ/L Anion Gap 9 MEQ/L Estimat Glomerular Filtration Rate 74 ML/MIN Lactic Acid Level 1.8 mmol/L Troponin I LESS THAN 0.02 NG/ML B-Type Natriuretic Peptide 71 PG/ML Urine Color YELLOW Urine Turbidity CLEAR Urine pH 6.0 Urine Specific [place] 1.011 Urine Protein NEG mg/dL Urine Glucose (UA) 70 mg/dL Urine Ketones NEG mg/dL Urine Occult Blood NEG Urine Nitrite NEG Urine Bilirubin NEG Urine Urobilinogen LESS THAN 2.0 MG/DL Urine Leukocyte Esterase SMALL Urine RBC 3 /hpf Urine WBC 3 /hpf Urine Squamous Epithelial Cells 2 /hpf Microscopic Urinalysis Comment CULT NOT INDICATED Imaging Last Impressions Upper Extremity Ultrasound 07/24/171656 Signed Impressions: Service Date/Time: Monday, July 24, 2017 18:07 - CONCLUSION: The study is negative for upper extremity deep venous thrombosis. Frankie Duncan MD Chest X-Ray 07/24/171653 Signed Impressions: Service Date/Time: Monday, July 24, 2017 17:12 - CONCLUSION: 1. Hyperinflation characteristic of a reported history of COPD. 2. Possible nodule in the right upper lobe may be associated with the anterior second rib. This is more conspicuous on the current exam. CT could be performed for further characterization if clinically warranted Yamil Pozo MD CT Angiography 07/24/171653 Signed Impressions: Service Date/Time: Monday, July 24, 2017 21:39 - CONCLUSION: 1. The study is negative for pulmonary embolism. 2. Severe emphysema, multifocal parenchymal scarring, unchanged from 06/24/17. Frankie Duncan MD Objective Remarks General: NAD, AAOx4 Chest: Decreased air movement bilaterally, minimal expiratory wheeze Cardiac: Regular Abd: +BS, soft ND/NT Ext: LUE with swelling and some tenderness to palpation Skin: LLE wound dressings are c/d/i, skin is dry and flaking over entire body and face A/P Problem List: (1) COPD exacerbation ICD Codes: J44.1 - Chronic obstructive pulmonary disease with (acute) exacerbation Status: Acute Plan: COPD acute exacerbation with bronchitis - Duo nebs every 4 hours and when necessary - Continue patient's home Symbicort and Combivent - Pt started on Solu-Medrol 40 mg IV twice a day at admission - Chest x-ray (07/25/17) --> Hyperinflation characteristic of a reported history of COPD. Possible nodular in the right upper lobe may be associated with the anterior second rib. There this is more conspicuous on the current exam. CT could be performed for further characteristic of clinically warranted. CT is suggested in 6 months as a conservative follow up, to be checked by PCP. - CT angiogram (07/25/17) --> Negative for pulmonary embolism. Severe emphysema and multifocal parenchymal scarring, unchanged from 06/24/2017 Right upper extremity edema - right upper extremity US negative for upper extremity DVT - monitor for s/s of cellulitis - Trial of gentle alva wrap up the LUE to see if that may help with some of the swelling RLE nonhealing wound - Recent admission from June 13, 2017 to July 17, 2017 for large, necrotic open wound right lower extremity x 2 months. - Pt underwent surgical debridement with wound vac placement on 06/15/[address] Clark - Pt underwent multiple vac changes under anesthesia on 06/17/17, 06/19, 06/21, 06/23, 06/26 - Pt was very painful with bedside wound VAC change 07/07 despite PO Dilaudid - Case d/w General Surgery, Dr. Knight (07/07). Dressing changed to wet-to -dry and pt has been tolerating bedside dressing changes - CTA with runoff (07/08) Moderate to severe atherosclerotic disease of aorta without aneurysm. Blood flow in both lower extremities is maintained with good perfusion appreciated to the distal legs bilaterally. No high-grade stenosis or occlusion is visualized. The nonvascular structures visualized demonstrate no acute finding. - RLE daily dressing changes to wet-to-dry, per previous wound care orders: Cleanse wound to RLE with normal saline and apply oil emulsion gauze (adaptic) to wound bed and cover with ABD pads , secure with rolled gauze and tape. Cleanse buttock area with skin protectant wipes. Please apply antifungal cream mixed 50/ 50 with Calazime barrier cream BID and PRN and leave open to air. - Pain control PRN with Ultram Rash - rash improving - Unlikely to be infectious Tachycardia - Outpt 2D echo (04/03/17) --> Mild concentric LVH, Estimated EF 50%, Grade 1 diastolic dysfunction, Moderate mitral valve regurg, Mild tricuspid valve regurg, Normal estimated PA pressure, 32.7mmHg - Telemetry with noted sinus tachycardia - EKG in the ED noted sinus tachycardia - repeat EKG (06/23) --> sinus tachycardia, 109, with occasional PVC - Continue Ultram PRN. - Lexiscan (07/02) --> reviewed with Radiology. EF 61%, subtle inferior/ basilar wall reversible defect - echocardiogram (07/04) --> EF 60-65% - metoprolol 25mg BID and HR has been controlled Hyperglycemia - Pt likely with steroid induced hyperglycemia with her prolonged steroid use - Hgb A1C is 8.6% - NovoLog SSI - Accu checks ACHS Assessment and Plan Patient examined. Assessment and plan formulated with Yomaira Lemus PA-C. I agree with the above. copd exacerbation. upper ext swelling. probably from steroids. chronic leg wound. needs admission for care of her wounds and copd. try alva on UE's. Pt would like to hold off on trial of diuretic Yomaira Lemus Jul 26, 2017 09:29 Ellis Eason MD Jul 26, 2017 14:25
[2017-07-26] MEDS: LACTOBACILLUS ACIDOPHILUS TAB PO SCH ×3 (10:36→18:04)
[2017-07-26] MEDS: methylPREDNISolone SOD SUCC 40 MG/1 ML VIAL IV PUSH SCH ×2 (10:36→21:59)
[2017-07-26] MEDS: BUDESONIDE-FORMOTEROL 80/4.5 MCG INHALER INH SCH ×2 (10:37→21:59)
[2017-07-26] MEDS: METOPROLOL TARTRATE 25 MG TAB PO SCH ×2 (10:38→21:59)
--- NOTE | 2017-07-26 16:03 | PD.WCN.NOT ---
Wound Consult Description: Wound consult ordered by Aj ARVIZU for RLE Recommendation: Please refer to current appropriate wound care orders Additional Information: Patient was not seen by wound care due to having current orders in place for Right lower extremity and sacral area. Mino Riley [facility] Jul 26, 2017 16:03
[2017-07-27] VITALS (8 sets, daily range): BP systolic 113–128; BP diastolic 70–77; PULSE 80–101; RESP 16–22; TEMP 97.7–98.1; O2SAT 93–99
[2017-07-27 06:47] LABS: AUTOMATED NEUTROPHIL # 10.1 TH/MM3 (1.8-7.7); BASOPHIL % 0.2 % (0.0-2.0); HEMOGLOBIN 9.2 GM/DL (11.6-15.3); LYMPH % 3.8 % (9.0-44.0); LYMPHOCYTE # 0.4 TH/MM3 (1.0-4.8); MEAN CELL VOLUME 86.4 FL (80.0-100.0); MEAN CORPUSCULAR HEMOGLOBIN 29.3 PG (27.0-34.0); MEAN PLATELET VOLUME 7.2 FL (7.0-11.0); MONO % 3.3 % (0.0-8.0); MONOCYTE # 0.4 TH/MM3 (0-0.9); NEUT % 92.7 % (16.0-70.0); PLATELET COUNT 291 TH/MM3 (150-450); RED BLOOD COUNT 3.12 MIL/MM3 (4.00-5.30); RED CELL DISTRIBUTION WIDTH 17.1 % (11.6-17.2); WHITE BLOOD COUNT 10.9 TH/MM3 (4.0-11.0)
[2017-07-27 07:27] LABS: BICARBONATE 26.3 MEQ/L (21.0-32.0); CALCIUM 8.2 MG/DL (8.5-10.1); CREATININE 0.87 MG/DL (0.50-1.00); MAGNESIUM 1.9 MG/DL (1.5-2.5)
[2017-07-27] MEDS: RESP: ALBUTEROL 2.5 MG/IPRATROPIUM 0.5 MG NEB (SCH) NEB ×4 (07:30→19:47)
[2017-07-27] MEDS: METOPROLOL TARTRATE 25 MG TAB PO SCH ×2 (08:50→21:19)
[2017-07-27] MEDS: LACTOBACILLUS ACIDOPHILUS TAB PO SCH ×3 (08:50→18:17)
[2017-07-27] MEDS: BUDESONIDE-FORMOTEROL 80/4.5 MCG INHALER INH SCH ×2 (08:50→21:19)
[2017-07-27] MEDS: methylPREDNISolone SOD SUCC 40 MG/1 ML VIAL IV PUSH SCH (08:50)
[2017-07-27] MEDS: INSULIN ASPART SUPPLEMENTAL SCALE SQ SCH ×4 (09:30→21:19)
--- NOTE | 2017-07-27 10:52 | HHI.PR ---
Subjective Remarks Pt reports that she had a bad episode of wheezing and SOB last night that improved with breathing treatment She has still not had her RLE dressing changed or received a bath or had her UE wrapped with alva bandages I spoke with the charge nurse today regarding these issues Objective Vitals Vital Signs Date Time Temp Pulse Resp B/P (MAP) Pulse Ox O2 Delivery O2 Flow Rate FiO2 07/27/17 08:48 Nasal Cannula 2.00 07/27/17 08:01 98.1 101 22 113/76 (88) 97 07/27/17 07:33 99 Nasal Cannula 2.00 07/27/17 04:42 98.1 95 16 120/71 (87) 97 07/27/17 01:01 98.0 100 16 117/70 (86) 97 07/26/17 21:41 98 Nasal Cannula 2.00 07/26/17 19:29 98.3 105 17 149/82 (104) 96 07/26/17 15:40 98.5 88 18 122/63 (82) 99 07/26/17 12:49 98.0 89 18 113/64 (80) 98 07/26/17 12:20 97 Nasal Cannula 2.00 Result Diagram: 07/27/17 0528 07/27/17 0525 Other Results Laboratory Tests Test 07/27/17 05:25 07/27/17 05:28 Blood Urea Nitrogen 21 MG/DL Creatinine 0.87 MG/DL Random Glucose 150 MG/DL Calcium Level 8.2 MG/DL Magnesium Level 1.9 MG/DL Sodium Level 140 MEQ/L Potassium Level 5.0 MEQ/L Chloride Level 106 MEQ/L Carbon Dioxide Level 26.3 MEQ/L Anion Gap 8 MEQ/L Estimat Glomerular Filtration Rate 65 ML/MIN White Blood Count 10.9 TH/MM3 Red Blood Count 3.12 MIL/MM3 Hemoglobin 9.2 GM/DL Hematocrit 27.0 % Mean Corpuscular Volume 86.4 FL Mean Corpuscular Hemoglobin 29.3 PG Mean Corpuscular Hemoglobin Concent 34.0 % Red Cell Distribution Width 17.1 % Platelet Count 291 TH/MM3 Mean Platelet Volume 7.2 FL Neutrophils (%) (Auto) 92.7 % Lymphocytes (%) (Auto) 3.8 % Monocytes (%) (Auto) 3.3 % Eosinophils (%) (Auto) 0.0 % Basophils (%) (Auto) 0.2 % Neutrophils # (Auto) 10.1 TH/MM3 Lymphocytes # (Auto) 0.4 TH/MM3 Monocytes # (Auto) 0.4 TH/MM3 Eosinophils # (Auto) 0.0 TH/MM3 Basophils # (Auto) 0.0 TH/MM3 CBC Comment DIFF FINAL Differential Comment Imaging Last Impressions Upper Extremity Ultrasound 07/24/171656 Signed Impressions: Service Date/Time: Monday, July 24, 2017 18:07 - CONCLUSION: The study is negative for upper extremity deep venous thrombosis. Frankie Duncan MD Chest X-Ray 07/24/171653 Signed Impressions: Service Date/Time: Monday, July 24, 2017 17:12 - CONCLUSION: 1. Hyperinflation characteristic of a reported history of COPD. 2. Possible nodule in the right upper lobe may be associated with the anterior second rib. This is more conspicuous on the current exam. CT could be performed for further characterization if clinically warranted Yamil Pozo MD CT Angiography 07/24/171653 Signed Impressions: Service Date/Time: Monday, July 24, 2017 21:39 - CONCLUSION: 1. The study is negative for pulmonary embolism. 2. Severe emphysema, multifocal parenchymal scarring, unchanged from 06/24/17. Frankie Duncan MD Objective Remarks General: NAD, AAOx4 Chest: Decreased air movement bilaterally, expiratory wheeze bilaterally Cardiac: Regular Abd: +BS, soft ND/NT Ext: LUE with swelling and some tenderness to palpation Skin: RLE wound dressings are c/d/i, skin is dry and flaking over entire body and face A/P Problem List: (1) COPD exacerbation ICD Codes: J44.1 - Chronic obstructive pulmonary disease with (acute) exacerbation Status: Acute Plan: COPD acute exacerbation with bronchitis - Duo nebs every 4 hours and when necessary - Continue patient's home Symbicort and Combivent - Pt started on Solu-Medrol 40 mg IV twice a day at admission - Chest x-ray (07/25/17) --> Hyperinflation characteristic of a reported history of COPD. Possible nodular in the right upper lobe may be associated with the anterior second rib. There this is more conspicuous on the current exam. CT could be performed for further characteristic of clinically warranted. CT is suggested in 6 months as a conservative follow up, to be checked by PCP. - CT angiogram (07/25/17) --> Negative for pulmonary embolism. Severe emphysema and multifocal parenchymal scarring, unchanged from 06/24/2017 - Pt still wheezing and tight, we will increase the Solu-Medrol to 60mg Q6H and we will consult Pulmonary Medicine, pt known to Dr. Villa. Right upper extremity edema - right upper extremity US negative for upper extremity DVT - monitor for s/s of cellulitis - Trial of gentle alva wrap up the bilateral UE to see if that may help with some of the swelling - Pt wants to hold off on any diuretics. RLE nonhealing wound - Recent admission from June 13, 2017 to July 17, 2017 for large, necrotic open wound right lower extremity x 2 months. - Pt underwent surgical debridement with wound vac placement on 06/15/[address] Clark - Pt underwent multiple vac changes under anesthesia on 06/17/17, 06/19, 06/21, 06/23, 06/26 - Pt was very painful with bedside wound VAC change 07/07 despite PO Dilaudid - Case d/w General Surgery, Dr. Knight (07/07). Dressing changed to wet-to -dry and pt has been tolerating bedside dressing changes - CTA with runoff (07/08) Moderate to severe atherosclerotic disease of aorta without aneurysm. Blood flow in both lower extremities is maintained with good perfusion appreciated to the distal legs bilaterally. No high-grade stenosis or occlusion is visualized. The nonvascular structures visualized demonstrate no acute finding. - RLE daily dressing changes to wet-to-dry, per previous wound care orders (): Cleanse wound to RLE with normal saline and apply oil emulsion gauze ( adaptic) to wound bed and cover with ABD pads , secure with rolled gauze and tape. Cleanse buttock area with skin protectant wipes. Please apply antifungal cream mixed 50 / 50 with Calazime barrier cream BID and PRN and leave open to air. - Wound care nurse ordered on 07/25 but pt has not been seen by WC nurse and dressing to RLE has not been changed since prior to admission. - Pain control PRN with Ultram Rash - rash improving - Unlikely to be infectious - Skin is very dry and flaking over entire body. Orders given to bathe the pt daily and apply moisturizing lotion which has not been done yet. Tachycardia - Outpt 2D echo (04/03/17) --> Mild concentric LVH, Estimated EF 50%, Grade 1 diastolic dysfunction, Moderate mitral valve regurg, Mild tricuspid valve regurg, Normal estimated PA pressure, 32.7mmHg - Telemetry with noted sinus tachycardia - EKG in the ED noted sinus tachycardia - repeat EKG (06/23) --> sinus tachycardia, 109, with occasional PVC - Continue Ultram PRN. - Lexiscan (07/02) --> reviewed with Radiology. EF 61%, subtle inferior/ basilar wall reversible defect - echocardiogram (07/04) --> EF 60-65% - metoprolol 25mg BID and HR has been controlled Hyperglycemia - Pt likely with steroid induced hyperglycemia with her prolonged steroid use - Hgb A1C is 8.6% - NovoLog SSI - Accu checks ACHS Assessment and Plan Patient examined. Assessment and plan formulated with Yomaira Lemus PA-C. I agree with the above. copd flare. not improving. increase steroids. nebs. right leg wound care ongoing. skin care ordered. ask Dr Villa to see her. Yomaira Lemus Jul 27, 2017 10:52 Ellis Eason MD Jul 27, 2017 14:20
[2017-07-27] MEDS: methylPREDNISolone SOD SUCC 125 MG/2 ML VIAL IV PUSH SCH (18:17)
[2017-07-28] MEDS: methylPREDNISolone SOD SUCC 125 MG/2 ML VIAL IV PUSH SCH ×4 (00:26→19:03)
[2017-07-28 04:49] VITALS: BP 142/79; PULSE 84; RESP 18; TEMP 98.2; O2SAT 98
[2017-07-28] MEDS: RESP: ALBUTEROL 2.5 MG/IPRATROPIUM 0.5 MG NEB (SCH) NEB ×3 (07:12→14:55)
[2017-07-28 07:14] VITALS: O2SAT 98
[2017-07-28 09:06] VITALS: BP 137/83; PULSE 86; RESP 24; TEMP 97.9; O2SAT 97
--- NOTE | 2017-07-28 09:49 | MB ---
cc: Sameer Villa MD DATE OF CONSULT: 07/27/2017 REASON FOR CONSULTATION: Shortness of breath. HISTORY OF PRESENT ILLNESS: Ms. Gould is a pleasant 66-year-old female with history of very severe history COPD, arrived here on at least 20% of predicted. She has a leg wound. She was in this hospital for a long period of time then went to [facility]. She was brought over here with worsening of her shortness of breath. She had a workup done. She had a CT of the chest, which shows no pulmonary embolism. Shows severe emphysema with parenchymal scarring. LABORATORY DATA: Her CBC shows WBC count 10.9, hemoglobin 9.2, hematocrit 27, MCV 86, platelet count 291. Sodium 140, potassium 5.0, chloride 106, CO2 26, BUN 21, creatinine 0.87. PAST MEDICAL HISTORY: Significant for very severe history of COPD, CA of the breast status post lumpectomy and radiation treatment, history of lower bowel reconstruction after bowel obstruction. MEDICATIONS: She is currently taking Solu-Medrol 60 milligrams every 6 hours, Albuterol nebulizer treatment, Symbicort twice a day, Lopressor 25 milligrams every 12 hours. ALLERGIES: CODEINE, MORPHINE, SULFAMETHOXAZOLE, TRIMETHOPRIM. SOCIAL HISTORY: She has history of smoking. 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 She is recently . She has two children. FAMILY HISTORY: She has one sister who committed suicide. Father with heart attack. Mother with heart disease. REVIEW OF SYSTEMS: The patient has a right leg wound, is not able to ambulate. No headache or dizziness. PHYSICAL EXAMINATION: GENERAL: Alert and oriented, short of breath even at rest. VITAL SIGNS: Blood pressure 128/77, heart rate 91, respiration 20, temperature 97.7. HEENT: Examination unremarkable. NECK: Supple. JVD not raised. CHEST: Equal air entrty bilaterally. She has expiratory, rhonchi. CARDIOVASCULAR: S1, S2 normal. ABDOMEN: Benign. EXTREMITIES: She has right leg wound. IMPRESSION: 1. Very severe history of chronic obstructive pulmonary disease. 2. Chronic obstructive pulmonary disease with exacerbation. 3. Right leg wound. 4. History of carcinoma of the breast. PLAN: She is on IV Solu-Medrol, aerosol treatment with Albuterol, will supplement her oxygen. She is undergoing wound care. Will check her pulmonary function study. Further treatment will depend on her course in the hospital. Thank you Dr. Eason for this consult. MD JOANA White/ALEJA , 06:48 PM , 09:00 PM
[2017-07-28] MEDS: INSULIN ASPART SUPPLEMENTAL SCALE SQ SCH ×4 (09:57→20:04)
[2017-07-28] MEDS: LACTOBACILLUS ACIDOPHILUS TAB PO SCH ×3 (09:57→19:02)
[2017-07-28] MEDS: BUDESONIDE-FORMOTEROL 80/4.5 MCG INHALER INH SCH ×2 (09:57→19:58)
[2017-07-28] MEDS: METOPROLOL TARTRATE 25 MG TAB PO SCH ×2 (09:57→19:58)
--- NOTE | 2017-07-28 10:11 | HHI.PR ---
Subjective Remarks Pt had RLE dressing changed yesterday She is still having some wheezing but doesn't feel that she is as "tight" this morning with the increase in the Solu-Medrol Objective Vitals Vital Signs Date Time Temp Pulse Resp B/P (MAP) Pulse Ox O2 Delivery O2 Flow Rate FiO2 07/28/17 09:06 97.9 86 24 137/83 (101) 97 07/28/17 07:14 98 Nasal Cannula 2.00 07/28/17 04:49 98.2 84 18 142/79 (100) 98 07/27/17 23:22 98.1 85 18 124/75 (91) 98 07/27/17 20:00 Nasal Cannula 2.00 07/27/17 19:48 93 Nasal Cannula 2.00 07/27/17 17:41 97.7 91 22 128/77 (94) 96 07/27/17 11:55 97.9 80 22 118/71 (87) 98 Result Diagram: 07/27/17 0528 07/27/17 0525 Other Results Laboratory Tests Test 07/27/17 05:25 07/27/17 05:28 Blood Urea Nitrogen 21 MG/DL Creatinine 0.87 MG/DL Random Glucose 150 MG/DL Calcium Level 8.2 MG/DL Magnesium Level 1.9 MG/DL Sodium Level 140 MEQ/L Potassium Level 5.0 MEQ/L Chloride Level 106 MEQ/L Carbon Dioxide Level 26.3 MEQ/L Anion Gap 8 MEQ/L Estimat Glomerular Filtration Rate 65 ML/MIN White Blood Count 10.9 TH/MM3 Red Blood Count 3.12 MIL/MM3 Hemoglobin 9.2 GM/DL Hematocrit 27.0 % Mean Corpuscular Volume 86.4 FL Mean Corpuscular Hemoglobin 29.3 PG Mean Corpuscular Hemoglobin Concent 34.0 % Red Cell Distribution Width 17.1 % Platelet Count 291 TH/MM3 Mean Platelet Volume 7.2 FL Neutrophils (%) (Auto) 92.7 % Lymphocytes (%) (Auto) 3.8 % Monocytes (%) (Auto) 3.3 % Eosinophils (%) (Auto) 0.0 % Basophils (%) (Auto) 0.2 % Neutrophils # (Auto) 10.1 TH/MM3 Lymphocytes # (Auto) 0.4 TH/MM3 Monocytes # (Auto) 0.4 TH/MM3 Eosinophils # (Auto) 0.0 TH/MM3 Basophils # (Auto) 0.0 TH/MM3 CBC Comment DIFF FINAL Differential Comment Imaging Last Impressions Upper Extremity Ultrasound 07/24/171656 Signed Impressions: Service Date/Time: Monday, July 24, 2017 18:07 - CONCLUSION: The study is negative for upper extremity deep venous thrombosis. Frankie Duncan MD Chest X-Ray 07/24/171653 Signed Impressions: Service Date/Time: Monday, July 24, 2017 17:12 - CONCLUSION: 1. Hyperinflation characteristic of a reported history of COPD. 2. Possible nodule in the right upper lobe may be associated with the anterior second rib. This is more conspicuous on the current exam. CT could be performed for further characterization if clinically warranted Yamil Pozo MD CT Angiography 07/24/171653 Signed Impressions: Service Date/Time: Monday, July 24, 2017 21:39 - CONCLUSION: 1. The study is negative for pulmonary embolism. 2. Severe emphysema, multifocal parenchymal scarring, unchanged from 06/24/17. Frankie Duncan MD Objective Remarks General: NAD, AAOx4 Chest: Decreased air movement bilaterally, expiratory wheeze bilaterally Cardiac: Regular Abd: +BS, soft ND/NT Ext: LUE with swelling and some tenderness to palpation Skin: RLE wound dressings are c/d/i, skin is dry and flaking over entire body and face A/P Problem List: (1) COPD exacerbation ICD Codes: J44.1 - Chronic obstructive pulmonary disease with (acute) exacerbation Status: Acute Plan: COPD acute exacerbation with bronchitis - Duo nebs every 4 hours and when necessary - Continue patient's home Symbicort and Combivent - Pt started on Solu-Medrol 40 mg IV twice a day at admission - Chest x-ray (07/25/17) --> Hyperinflation characteristic of a reported history of COPD. Possible nodular in the right upper lobe may be associated with the anterior second rib. There this is more conspicuous on the current exam. CT could be performed for further characteristic of clinically warranted. CT is suggested in 6 months as a conservative follow up, to be checked by PCP. - CT angiogram (07/25/17) --> Negative for pulmonary embolism. Severe emphysema and multifocal parenchymal scarring, unchanged from 06/24/2017 - Solu-Medrol increased to 60mg Q6H on 07/27 - Appreciate consult from Pulmonary Medicine, pt known to Dr. Villa. Right upper extremity edema - right upper extremity US negative for upper extremity DVT - monitor for s/s of cellulitis - Trial of gentle alva wrap up the bilateral UE to see if that may help with some of the swelling. Wraps placed on 07/27 - Pt wants to hold off on any diuretics. RLE nonhealing wound - Recent admission from June 13, 2017 to July 17, 2017 for large, necrotic open wound right lower extremity x 2 months. - Pt underwent surgical debridement with wound vac placement on 06/15/[address] Clark - Pt underwent multiple vac changes under anesthesia on 06/17/17, 06/19, 06/21, 06/23, 06/26 - Pt was very painful with bedside wound VAC change 07/07 despite PO Dilaudid - Case d/w General Surgery, Dr. Knight (07/07). Dressing changed to wet-to -dry and pt has been tolerating bedside dressing changes - CTA with runoff (07/08) Moderate to severe atherosclerotic disease of aorta without aneurysm. Blood flow in both lower extremities is maintained with good perfusion appreciated to the distal legs bilaterally. No high-grade stenosis or occlusion is visualized. The nonvascular structures visualized demonstrate no acute finding. - RLE daily dressing changes to wet-to-dry, per previous wound care orders (): Cleanse wound to RLE with normal saline and apply oil emulsion gauze ( adaptic) to wound bed and cover with ABD pads , secure with rolled gauze and tape. Cleanse buttock area with skin protectant wipes. Please apply antifungal cream mixed 50 / 50 with Calazime barrier cream BID and PRN and leave open to air. - Wound care nurse ordered on 07/25 but pt has not been seen by WC nurse and dressing to RLE was not changed until 07/27 despite dressing change orders placed on 07/26. - Cont. daily dressing changes - Pain control PRN with Ultram Rash - rash improving - Unlikely to be infectious - Skin is very dry and flaking over entire body. Orders given to bathe the pt daily and apply moisturizing lotion to entire body. Tachycardia - Outpt 2D echo (04/03/17) --> Mild concentric LVH, Estimated EF 50%, Grade 1 diastolic dysfunction, Moderate mitral valve regurg, Mild tricuspid valve regurg, Normal estimated PA pressure, 32.7mmHg - Telemetry with noted sinus tachycardia - EKG in the ED noted sinus tachycardia - repeat EKG (06/23) --> sinus tachycardia, 109, with occasional PVC - Continue Ultram PRN. - Lexiscan (07/02) --> reviewed with Radiology. EF 61%, subtle inferior/ basilar wall reversible defect - echocardiogram (07/04) --> EF 60-65% - metoprolol 25mg BID and HR has been controlled Hyperglycemia - Pt likely with steroid induced hyperglycemia with her prolonged steroid use - Hgb A1C is 8.6% - NovoLog SSI, may need to be increased from low to medium dose SSI - Accu checks ACHS Discharge Planning Patient examined. Assessment and plan formulated with Yomaira Lemus PA-C. I agree with the above. copd exacerbation. slow to improve Yomaira Lemus Jul 28, 2017 10:11 Ellis Eason MD Jul 28, 2017 12:13
[2017-07-28 12:15] VITALS: BP 139/73; PULSE 90; RESP 22; TEMP 97.4; O2SAT 99
--- NOTE | 2017-07-28 15:59 | PD.WCN.NOT ---
Wound Consult Description: Wound consult ordered by Aj ARVIZU for RLE Communicated with: RN Rosalia hunter, Mino TAYLOR, Yomaira Lemus, and Doctor Yumi Recommendation: Please continue current wound care orders in place. Order follow up with outpatient wound care when discharged Additional Information: Patient seen on F pod for evaluation of wound to RLE, noted with previous admission to hospital. Patient is known to inpatient wound care. Was seen with last admission on 07/07/2017 for wound VAC dressing change to RLE. Patient could not tolerate wound VAC dressing.Verbal order was obtained at that time to stop wound VAC and apply dressings as currently ordered. Patient also noted with open area to buttocks.Patient seen with Mino TAYLOR.Before assessment of RLE wound, patient was positioned self to L side with minimal assist from quality analyst/technical writer and Mino TAYLOR to assess skin to buttock area. Buttock area noted with intact blanchable erythema. Calazime barrier cream with antifungal cream mixed 50/50 is being applied as ordered.Patient positioned to supine position before assessing RLE. Removed rolled gauze, ABD pads, oil emulsion gauze to reveal wound to RLE measuring ~21cm x ~20cm x ~0.5cm. Wound bed presents with ~80% red granulation tissue and ~20% facia. Wound is draining minimal amount of sero- sanguinous drainage that is without odor. Periwound is noted with dry crusting skin and maceration posteriorly at 12 o'clock. No erythema, heat or induration is seen to periwound. Wound was cleansed with normal saline and patted dry. Applied oil emulsion gauze just over open wound bed and secured dressings with ABD pads, rolled gauze and tape. Patient tolerated dressing change well. Leonora Crespo Jul 28, 2017 15:59
[2017-07-28 16:41] VITALS: BP 134/76; PULSE 78; RESP 22; TEMP 97.6; O2SAT 98
--- NOTE | 2017-07-28 17:49 | HHI.PR ---
Subjective Remarks 66 YOWF with Severe COPD with exac Solumedrol increased C/o leg pain No fever Objective Vital Signs Vital Signs Date Time Temp Pulse Resp B/P (MAP) Pulse Ox O2 Delivery O2 Flow Rate FiO2 07/28/17 16:41 97.6 78 22 134/76 (95) 98 07/28/17 12:15 97.4 90 22 139/73 (95) 99 07/28/17 09:06 97.9 86 24 137/83 (101) 97 07/28/17 07:14 98 Nasal Cannula 2.00 07/28/17 04:49 98.2 84 18 142/79 (100) 98 07/27/17 23:22 98.1 85 18 124/75 (91) 98 07/27/17 20:00 Nasal Cannula 2.00 07/27/17 19:48 93 Nasal Cannula 2.00 Result Diagram: 07/27/17 0528 07/27/17 0525 Objective Remarks GENERAL: elderly female, mild sob SKIN: Warm and dry. HEAD: Normocephalic. EYES: No scleral icterus. No injection or drainage. NECK: Supple, trachea midline. No JVD or lymphadenopathy. CARDIOVASCULAR: Regular rate and rhythm without murmurs, gallops, or rubs. RESPIRATORY: Breath sounds equal bilaterally. No accessory muscle use. GASTROINTESTINAL: Abdomen soft, non-tender, nondistended. MUSCULOSKELETAL: No cyanosis, or edema. Right leg wound BACK: Nontender without obvious deformity. No CVA tenderness. A/P Assessment and Plan Very Severe COPD COPD exac Leg wound Ch pain; PLAN IV Solumedrol Aerosol nebs Cont Abx Symbicort bid Supplement 02 Wound care Sameer Villa MD Jul 28, 2017 17:49
[2017-07-28 20:26] VITALS: BP 124/78; PULSE 76; RESP 18; TEMP 96.1; O2SAT 94
[2017-07-29] VITALS (7 sets, daily range): BP systolic 131–178; BP diastolic 73–88; PULSE 61–96; RESP 17–18; TEMP 96–97.8; O2SAT 96–98
[2017-07-29] MEDS: methylPREDNISolone SOD SUCC 125 MG/2 ML VIAL IV PUSH SCH ×5 (00:09→23:55)
[2017-07-29] MEDS: RESP: ALBUTEROL 2.5 MG/IPRATROPIUM 0.5 MG NEB (SCH) NEB ×2 (08:39→12:30)
[2017-07-29] MEDS: LACTOBACILLUS ACIDOPHILUS TAB PO SCH ×3 (09:03→17:25)
[2017-07-29] MEDS: BUDESONIDE-FORMOTEROL 80/4.5 MCG INHALER INH SCH ×2 (09:04→21:31)
[2017-07-29] MEDS: METOPROLOL TARTRATE 25 MG TAB PO SCH ×2 (09:04→21:29)
[2017-07-29] MEDS: INSULIN ASPART SUPPLEMENTAL SCALE SQ SCH ×4 (09:04→21:37)
--- NOTE | 2017-07-29 13:53 | HHI.PR ---
Subjective Remarks Pt feels that her breathing is worse today and more labored Pt having difficulty speaking because of SOB today She denies any chest pain or palpitations. Objective Vitals Vital Signs Date Time Temp Pulse Resp B/P (MAP) Pulse Ox O2 Delivery O2 Flow Rate FiO2 07/29/17 12:00 97.3 96 17 178/77 (110) 98 07/29/17 08:45 98 Nasal Cannula 2.00 07/29/17 08:00 97.1 61 18 148/88 (108) 97 07/29/17 04:00 97.3 71 18 133/73 (93) 98 07/29/17 01:06 97.6 64 18 132/77 (95) 96 07/28/17 20:26 96.1 76 18 124/78 (93) 94 07/28/17 19:50 Nasal Cannula 2.00 07/28/17 16:41 97.6 78 22 134/76 (95) 98 Result Diagram: 07/27/17 0528 07/27/17 0525 Imaging Last Impressions Upper Extremity Ultrasound 07/24/171656 Signed Impressions: Service Date/Time: Monday, July 24, 2017 18:07 - CONCLUSION: The study is negative for upper extremity deep venous thrombosis. Frankie Duncan MD Chest X-Ray 07/24/171653 Signed Impressions: Service Date/Time: Monday, July 24, 2017 17:12 - CONCLUSION: 1. Hyperinflation characteristic of a reported history of COPD. 2. Possible nodule in the right upper lobe may be associated with the anterior second rib. This is more conspicuous on the current exam. CT could be performed for further characterization if clinically warranted Yamil Pozo MD CT Angiography 07/24/171653 Signed Impressions: Service Date/Time: Monday, July 24, 2017 21:39 - CONCLUSION: 1. The study is negative for pulmonary embolism. 2. Severe emphysema, multifocal parenchymal scarring, unchanged from 06/24/17. Frankie Duncan MD Objective Remarks General: Pt very SOB with speaking Chest: Decreased air movement bilaterally, expiratory wheeze bilaterally Cardiac: Regular Abd: +BS, soft ND/NT Ext: LUE with swelling and some tenderness to palpation Skin: RLE wound dressings are c/d/i, skin is dry and flaking over entire body and face A/P Problem List: (1) COPD exacerbation ICD Codes: J44.1 - Chronic obstructive pulmonary disease with (acute) exacerbation Status: Acute Plan: COPD acute exacerbation with bronchitis - Duo nebs every 4 hours and when necessary - Continue patient's home Symbicort and Combivent - Pt started on Solu-Medrol 40 mg IV twice a day at admission - Chest x-ray (07/25/17) --> Hyperinflation characteristic of a reported history of COPD. Possible nodular in the right upper lobe may be associated with the anterior second rib. There this is more conspicuous on the current exam. CT could be performed for further characteristic of clinically warranted. CT is suggested in 6 months as a conservative follow up, to be checked by PCP. - CT angiogram (07/25/17) --> Negative for pulmonary embolism. Severe emphysema and multifocal parenchymal scarring, unchanged from 06/24/2017 - Solu-Medrol increased to 60mg Q6H on 07/27 - Pt more SOB today just with speaking but O2 sats are stable - Add Xanax 0.25mg po Q6H PRN anxiety - Discussed need for possible BiPAP or even intubation should her respiratory status worsen, pt wants to discuss code status with her today - Appreciate consult from Pulmonary Medicine, pt known to Dr. Villa. Right upper extremity edema - right upper extremity US negative for upper extremity DVT - monitor for s/s of cellulitis - Trial of gentle alva wrap up the bilateral UE to see if that may help with some of the swelling. Wraps placed on 07/27 - Pt wants to hold off on any diuretics. RLE nonhealing wound - Recent admission from June 13, 2017 to July 17, 2017 for large, necrotic open wound right lower extremity x 2 months. - Pt underwent surgical debridement with wound vac placement on 06/15/[address] Clark - Pt underwent multiple vac changes under anesthesia on 06/17/17, 06/19, 06/21, 06/23, 06/26 - Pt was very painful with bedside wound VAC change 07/07 despite PO Dilaudid - Case d/w General Surgery, Dr. Knight (07/07). Dressing changed to wet-to -dry and pt has been tolerating bedside dressing changes - CTA with runoff (07/08) Moderate to severe atherosclerotic disease of aorta without aneurysm. Blood flow in both lower extremities is maintained with good perfusion appreciated to the distal legs bilaterally. No high-grade stenosis or occlusion is visualized. The nonvascular structures visualized demonstrate no acute finding. - RLE daily dressing changes to wet-to-dry, per previous wound care orders (): Cleanse wound to RLE with normal saline and apply oil emulsion gauze ( adaptic) to wound bed and cover with ABD pads , secure with rolled gauze and tape. Cleanse buttock area with skin protectant wipes. Please apply antifungal cream mixed 50 / 50 with Calazime barrier cream BID and PRN and leave open to air. - Appreciate wound care nurse re-evaluation of pts wounds and they report continued improvement and continue on current recommendations. - Cont. daily dressing changes - Pain control PRN with Ultram Rash - rash improving - Unlikely to be infectious - Skin is very dry and flaking over entire body. Orders given to bathe the pt daily and apply moisturizing lotion to entire body. Tachycardia - Outpt 2D echo (04/03/17) --> Mild concentric LVH, Estimated EF 50%, Grade 1 diastolic dysfunction, Moderate mitral valve regurg, Mild tricuspid valve regurg, Normal estimated PA pressure, 32.7mmHg - Telemetry with noted sinus tachycardia - EKG in the ED noted sinus tachycardia - repeat EKG (06/23) --> sinus tachycardia, 109, with occasional PVC - Continue Ultram PRN. - Lexiscan (07/02) --> reviewed with Radiology. EF 61%, subtle inferior/ basilar wall reversible defect - echocardiogram (07/04) --> EF 60-65% - metoprolol 25mg BID and HR has been controlled Hyperglycemia - Pt likely with steroid induced hyperglycemia with her prolonged steroid use - Hgb A1C is 8.6% - Add Levemir 5 units Q12H - Low NovoLog SSI, may need to be increased from low to medium dose SSI if BS continue to run high - Accu checks ACHS Assessment and Plan Patient examined. Assessment and plan formulated with Yomaira Lemus PA-C. I agree with the above. copd exacerbation. looks more sob today. anxious. try mild anxiolytic. extra solumedrol if needed. bipap if needed. they will discuss code status. Yomaira Lemus Jul 29, 2017 13:53 Ellis Eason MD Jul 29, 2017 15:05
--- NOTE | 2017-07-29 14:18 | HHI.PR ---
Subjective Remarks Patient is on 2L oxygen with good sats. Afebrile. Objective Vital Signs Vital Signs Date Time Temp Pulse Resp B/P (MAP) Pulse Ox O2 Delivery O2 Flow Rate FiO2 07/29/17 12:00 97.3 96 17 178/77 (110) 98 07/29/17 08:45 98 Nasal Cannula 2.00 07/29/17 08:15 96 2.00 07/29/17 08:00 97.1 61 18 148/88 (108) 97 07/29/17 04:00 97.3 71 18 133/73 (93) 98 07/29/17 01:06 97.6 64 18 132/77 (95) 96 07/28/17 20:26 96.1 76 18 124/78 (93) 94 07/28/17 19:50 Nasal Cannula 2.00 07/28/17 16:41 97.6 78 22 134/76 (95) 98 I/O 07/28/17 07/28/17 07/28/17 07/29/17 07/29/17 07/29/17 07:00 15:00 23:00 07:00 15:00 23:00 Intake Total 240 ml 360 ml Balance 240 ml 360 ml Intake Oral 240 ml 360 ml # Voids 1 # Bowel Movements 0 Result Diagram: 07/27/17 0528 07/27/17 0525 Other Results Last Impressions Upper Extremity Ultrasound 07/24/171656 Signed Impressions: Service Date/Time: Monday, July 24, 2017 18:07 - CONCLUSION: The study is negative for upper extremity deep venous thrombosis. Frankie Duncan MD Chest X-Ray 07/24/171653 Signed Impressions: Service Date/Time: Monday, July 24, 2017 17:12 - CONCLUSION: 1. Hyperinflation characteristic of a reported history of COPD. 2. Possible nodule in the right upper lobe may be associated with the anterior second rib. This is more conspicuous on the current exam. CT could be performed for further characterization if clinically warranted Yamil Pozo MD CT Angiography 07/24/171653 Signed Impressions: Service Date/Time: Monday, July 24, 2017 21:39 - CONCLUSION: 1. The study is negative for pulmonary embolism. 2. Severe emphysema, multifocal parenchymal scarring, unchanged from 06/24/17. Frankie Duncan MD Objective Remarks GENERAL: elderly female, mild sob SKIN: Warm and dry. HEAD: Normocephalic. EYES: No scleral icterus. No injection or drainage. NECK: Supple, trachea midline. No JVD or lymphadenopathy. CARDIOVASCULAR: Regular rate and rhythm without murmurs, gallops, or rubs. RESPIRATORY: Breath sounds equal bilaterally. Diminished. GASTROINTESTINAL: Abdomen soft, non-tender, nondistended. MUSCULOSKELETAL: No cyanosis, or edema. Right leg wound Neuro: Awake and alert. A/P Assessment and Plan 1)Resp Insuff 2)COPD exac 3)Leg wound 4)Anemia 5)Pulm scarring per CT chest PLAN Continue with oxygen keep sats >92% Bronchodilators ( Duoneb, Symbicort) Continue Solumederol 60mg Q6 NIPPV PRN for resp distress. CT chest showed no PE, pulm scarring Place on Levaquin for COPD exac Nasal washing negative for Influenza, BC negative on 07/24 Wound care GI/DVT prophylaxis - per primary team Yariel Arroyo MD Jul 29, 2017 14:18
[2017-07-29] MEDS ORDERED: ALPRAZolam 0.25 MG TAB PO ONE (15:00)
[2017-07-29] MEDS: LEVOFLOXACIN 500 MG TAB PO SCH (17:35)
[2017-07-29] MEDS: INSULIN DETEMIR 100 UNITS/ML VIAL SQ SCH (21:37)
[2017-07-30] VITALS (8 sets, daily range): BP systolic 123–173; BP diastolic 62–86; PULSE 60–93; RESP 17–22; TEMP 96–98.7; O2SAT 94–99
[2017-07-30] MEDS: methylPREDNISolone SOD SUCC 125 MG/2 ML VIAL IV PUSH SCH ×3 (05:02→17:53)
[2017-07-30 08:44] LABS: AUTOMATED NEUTROPHIL # 10.2 TH/MM3 (1.8-7.7); BASOPHIL % 0.1 % (0.0-2.0); HEMATOCRIT 27.4 % (35.0-46.0); HEMOGLOBIN 9.2 GM/DL (11.6-15.3); LYMPH % 2.4 % (9.0-44.0); LYMPHOCYTE # 0.3 TH/MM3 (1.0-4.8); MEAN CELL VOLUME 86.3 FL (80.0-100.0); MEAN CORPUSCULAR HGB CONC 33.6 % (32.0-36.0); MEAN PLATELET VOLUME 6.7 FL (7.0-11.0); MONO % 5.1 % (0.0-8.0); MONOCYTE # 0.6 TH/MM3 (0-0.9); NEUT % 92.4 % (16.0-70.0); PLATELET COUNT 323 TH/MM3 (150-450); RED BLOOD COUNT 3.17 MIL/MM3 (4.00-5.30); RED CELL DISTRIBUTION WIDTH 16.4 % (11.6-17.2); WHITE BLOOD COUNT 11.1 TH/MM3 (4.0-11.0)
[2017-07-30] MEDS: BUDESONIDE-FORMOTEROL 80/4.5 MCG INHALER INH SCH ×2 (09:00→21:16)
[2017-07-30] MEDS: INSULIN ASPART SUPPLEMENTAL SCALE SQ SCH ×4 (09:05→21:45)
[2017-07-30] MEDS: METOPROLOL TARTRATE 25 MG TAB PO SCH ×2 (09:05→21:18)
[2017-07-30] MEDS: LACTOBACILLUS ACIDOPHILUS TAB PO SCH ×3 (09:05→17:53)
[2017-07-30 09:06] LABS: BICARBONATE 27.6 MEQ/L (21.0-32.0); CALCIUM 8.2 MG/DL (8.5-10.1); CREATININE 0.9 MG/DL (0.50-1.00); MAGNESIUM 1.8 MG/DL (1.5-2.5)
[2017-07-30] MEDS: INSULIN DETEMIR 100 UNITS/ML VIAL SQ SCH ×2 (09:06→21:45)
--- NOTE | 2017-07-30 10:20 | HHI.PR ---
Subjective Remarks Patient remains on 2L oxygen with good sats. Afebrile. Objective Vital Signs Vital Signs Date Time Temp Pulse Resp B/P (MAP) Pulse Ox O2 Delivery O2 Flow Rate FiO2 07/30/17 08:00 96.8 60 18 131/83 (99) 99 07/30/17 04:00 98.7 68 17 148/62 (90) 94 07/30/17 00:00 96.2 77 19 173/79 (110) 97 07/29/17 22:03 Nasal Cannula 2.00 07/29/17 21:35 Nasal Cannula 2.00 07/29/17 20:00 96.0 86 17 131/86 (101) 98 07/29/17 16:00 97.8 77 18 163/87 (112) 98 07/29/17 15:23 97 2.00 07/29/17 12:00 97.3 96 17 178/77 (110) 98 I/O 07/29/17 07/29/17 07/29/17 07/30/17 07/30/17 07/30/17 07:00 15:00 23:00 07:00 15:00 23:00 Intake Total 360 ml 700 ml 240 ml Balance 360 ml 700 ml 240 ml Intake Oral 360 ml 700 ml 240 ml # Voids 1 3 3 # Bowel Movements 0 0 1 Result Diagram: 07/30/17 0754 07/30/17 0754 Other Results Last Impressions Upper Extremity Ultrasound 07/24/171656 Signed Impressions: Service Date/Time: Monday, July 24, 2017 18:07 - CONCLUSION: The study is negative for upper extremity deep venous thrombosis. Frankie Duncan MD Chest X-Ray 07/24/171653 Signed Impressions: Service Date/Time: Monday, July 24, 2017 17:12 - CONCLUSION: 1. Hyperinflation characteristic of a reported history of COPD. 2. Possible nodule in the right upper lobe may be associated with the anterior second rib. This is more conspicuous on the current exam. CT could be performed for further characterization if clinically warranted Yamil Pozo MD CT Angiography 07/24/171653 Signed Impressions: Service Date/Time: Monday, July 24, 2017 21:39 - CONCLUSION: 1. The study is negative for pulmonary embolism. 2. Severe emphysema, multifocal parenchymal scarring, unchanged from 06/24/17. Frankie Duncan MD Objective Remarks GENERAL: elderly female, mild sob SKIN: Warm and dry. HEAD: Normocephalic. EYES: No scleral icterus. No injection or drainage. NECK: Supple, trachea midline. No JVD or lymphadenopathy. CARDIOVASCULAR: Regular rate and rhythm without murmurs, gallops, or rubs. RESPIRATORY: Breath sounds equal bilaterally. Scattered wheezing, coarse BS GASTROINTESTINAL: Abdomen soft, non-tender, nondistended. MUSCULOSKELETAL: No cyanosis, or edema. Right leg wound Neuro: Awake and alert. A/P Assessment and Plan 1)Resp Insuff 2)COPD exac 3)Leg wound 4)Anemia 5)Pulm scarring per CT chest PLAN Continue with oxygen keep sats >92% Bronchodilators ( Duoneb, Symbicort) Continue Solumederol 60mg Q6 NIPPV PRN for resp distress. CT chest showed no PE, pulm scarring Continue Levaquin for COPD exac Nasal washing negative for Influenza, BC negative on 07/24 Wound care GI/DVT prophylaxis - per primary team Yariel Arroyo MD Jul 30, 2017 10:20
[2017-07-30] MEDS: RESP: ALBUTEROL 2.5 MG/IPRATROPIUM 0.5 MG NEB (SCH) NEB ×3 (12:00→19:42)
[2017-07-30] MEDS: LEVOFLOXACIN 500 MG TAB PO SCH (13:15)
[2017-07-30] MEDS: ALPRAZolam 0.25 MG TAB PO PRN (13:16)
--- NOTE | 2017-07-30 13:27 | HHI.PR ---
Subjective Remarks Pt feeling SOB this morning during her bath No chest pain Tolerating diet well Objective Vitals Vital Signs Date Time Temp Pulse Resp B/P (MAP) Pulse Ox O2 Delivery O2 Flow Rate FiO2 07/30/17 12:00 96.0 64 20 143/86 (105) 99 07/30/17 08:05 95 2.00 07/30/17 08:00 96.8 60 18 131/83 (99) 99 07/30/17 04:00 98.7 68 17 148/62 (90) 94 07/30/17 00:00 96.2 77 19 173/79 (110) 97 07/29/17 22:03 Nasal Cannula 2.00 07/29/17 21:35 Nasal Cannula 2.00 07/29/17 20:00 96.0 86 17 131/86 (101) 98 07/29/17 16:00 97.8 77 18 163/87 (112) 98 07/29/17 15:23 97 2.00 Result Diagram: 07/30/17 0754 07/30/17 0754 Other Results Laboratory Tests Test 07/30/17 07:54 White Blood Count 11.1 TH/MM3 Red Blood Count 3.17 MIL/MM3 Hemoglobin 9.2 GM/DL Hematocrit 27.4 % Mean Corpuscular Volume 86.3 FL Mean Corpuscular Hemoglobin 29.0 PG Mean Corpuscular Hemoglobin Concent 33.6 % Red Cell Distribution Width 16.4 % Platelet Count 323 TH/MM3 Mean Platelet Volume 6.7 FL Neutrophils (%) (Auto) 92.4 % Lymphocytes (%) (Auto) 2.4 % Monocytes (%) (Auto) 5.1 % Eosinophils (%) (Auto) 0.0 % Basophils (%) (Auto) 0.1 % Neutrophils # (Auto) 10.2 TH/MM3 Lymphocytes # (Auto) 0.3 TH/MM3 Monocytes # (Auto) 0.6 TH/MM3 Eosinophils # (Auto) 0.0 TH/MM3 Basophils # (Auto) 0.0 TH/MM3 CBC Comment DIFF FINAL Differential Comment Blood Urea Nitrogen 29 MG/DL Creatinine 0.90 MG/DL Random Glucose 154 MG/DL Calcium Level 8.2 MG/DL Magnesium Level 1.8 MG/DL Sodium Level 140 MEQ/L Potassium Level 4.4 MEQ/L Chloride Level 105 MEQ/L Carbon Dioxide Level 27.6 MEQ/L Anion Gap 7 MEQ/L Estimat Glomerular Filtration Rate 63 ML/MIN Imaging Last Impressions Upper Extremity Ultrasound 07/24/171656 Signed Impressions: Service Date/Time: Monday, July 24, 2017 18:07 - CONCLUSION: The study is negative for upper extremity deep venous thrombosis. Frankie Duncan MD Chest X-Ray 07/24/171653 Signed Impressions: Service Date/Time: Monday, July 24, 2017 17:12 - CONCLUSION: 1. Hyperinflation characteristic of a reported history of COPD. 2. Possible nodule in the right upper lobe may be associated with the anterior second rib. This is more conspicuous on the current exam. CT could be performed for further characterization if clinically warranted Yamil Pozo MD CT Angiography 07/24/171653 Signed Impressions: Service Date/Time: Monday, July 24, 2017 21:39 - CONCLUSION: 1. The study is negative for pulmonary embolism. 2. Severe emphysema, multifocal parenchymal scarring, unchanged from 06/24/17. Frankie Duncan MD Objective Remarks General: Pt very SOB with speaking Chest: Decreased air movement bilaterally, expiratory wheeze bilaterally Cardiac: Regular Abd: +BS, soft ND/NT Ext: LUE with swelling and some tenderness to palpation Skin: RLE wound dressings are c/d/i, skin is dry and flaking over entire body and face A/P Problem List: (1) COPD exacerbation ICD Codes: J44.1 - Chronic obstructive pulmonary disease with (acute) exacerbation Status: Acute Plan: COPD acute exacerbation with bronchitis - Duo nebs every 4 hours and when necessary - Continue patient's home Symbicort and Combivent - Pt started on Solu-Medrol 40 mg IV twice a day at admission - Chest x-ray (07/25/17) --> Hyperinflation characteristic of a reported history of COPD. Possible nodular in the right upper lobe may be associated with the anterior second rib. There this is more conspicuous on the current exam. CT could be performed for further characteristic of clinically warranted. CT is suggested in 6 months as a conservative follow up, to be checked by PCP. - CT angiogram (07/25/17) --> Negative for pulmonary embolism. Severe emphysema and multifocal parenchymal scarring, unchanged from 06/24/2017 - Solu-Medrol increased to 60mg Q6H on 07/27 - Pt more SOB today just with speaking but O2 sats are stable - Cont. Xanax 0.25mg po Q6H PRN anxiety - Discussed need for possible BiPAP or even intubation should her respiratory status worsen, pt wants to discuss code status with her today - Appreciate consult from Pulmonary Medicine, pt known to Dr. Villa. Right upper extremity edema - right upper extremity US negative for upper extremity DVT - monitor for s/s of cellulitis - Trial of gentle alva wrap up the bilateral UE to see if that may help with some of the swelling. Wraps placed on 07/27 - Pt wants to hold off on any diuretics. RLE nonhealing wound - Recent admission from June 13, 2017 to July 17, 2017 for large, necrotic open wound right lower extremity x 2 months. - Pt underwent surgical debridement with wound vac placement on 06/15/[address] Clark - Pt underwent multiple vac changes under anesthesia on 06/17/17, 06/19, 06/21, 06/23, 06/26 - Pt was very painful with bedside wound VAC change 07/07 despite PO Dilaudid - Case d/w General Surgery, Dr. Knight (07/07). Dressing changed to wet-to -dry and pt has been tolerating bedside dressing changes - CTA with runoff (07/08) Moderate to severe atherosclerotic disease of aorta without aneurysm. Blood flow in both lower extremities is maintained with good perfusion appreciated to the distal legs bilaterally. No high-grade stenosis or occlusion is visualized. The nonvascular structures visualized demonstrate no acute finding. - RLE daily dressing changes to wet-to-dry, per previous wound care orders (): Cleanse wound to RLE with normal saline and apply oil emulsion gauze ( adaptic) to wound bed and cover with ABD pads , secure with rolled gauze and tape. Cleanse buttock area with skin protectant wipes. Please apply antifungal cream mixed 50 / 50 with Calazime barrier cream BID and PRN and leave open to air. - Appreciate wound care nurse re-evaluation of pts wounds and they report continued improvement and continue on current recommendations. - Cont. daily dressing changes - Pain control PRN with Ultram Rash - rash improving - Unlikely to be infectious - Skin is very dry and flaking over entire body. Orders given to bathe the pt daily and apply moisturizing lotion to entire body. Tachycardia - Outpt 2D echo (04/03/17) --> Mild concentric LVH, Estimated EF 50%, Grade 1 diastolic dysfunction, Moderate mitral valve regurg, Mild tricuspid valve regurg, Normal estimated PA pressure, 32.7mmHg - Telemetry with noted sinus tachycardia - EKG in the ED noted sinus tachycardia - repeat EKG (06/23) --> sinus tachycardia, 109, with occasional PVC - Continue Ultram PRN. - Lexiscan (07/02) --> reviewed with Radiology. EF 61%, subtle inferior/ basilar wall reversible defect - echocardiogram (07/04) --> EF 60-65% - metoprolol 25mg BID and HR has been controlled Hyperglycemia - Pt likely with steroid induced hyperglycemia with her prolonged steroid use - Hgb A1C is 8.6% - Add Levemir 5 units Q12H - Low NovoLog SSI, may need to be increased from low to medium dose SSI if BS continue to run high - Accu checks ACHS Assessment and Plan Patient examined. Assessment and plan formulated with Yomaira Lemus PA-C. I agree with the above. copd exacerbation anxiolytics helping. bipap as needed and currently full code Yomaira Lemus Jul 30, 2017 13:27 Ellis Eason MD Jul 30, 2017 14:33
[2017-07-31] VITALS (9 sets, daily range): BP systolic 121–153; BP diastolic 67–92; PULSE 64–106; RESP 17–22; TEMP 96–98.3; O2SAT 95–99
[2017-07-31] MEDS: RESP: ALBUTEROL 2.5 MG/IPRATROPIUM 0.5 MG NEB (SCH) NEB ×7 (00:06→23:12)
[2017-07-31] MEDS: methylPREDNISolone SOD SUCC 125 MG/2 ML VIAL IV PUSH SCH ×4 (00:35→18:00)
[2017-07-31] MEDS: LACTOBACILLUS ACIDOPHILUS TAB PO SCH ×4 (09:00→18:00)
--- NOTE | 2017-07-31 09:20 | HHI.PR ---
Subjective Remarks Pts breathing is slightly improved today Pt concerned because she hasn't had PT in 2 days but this was held due to respiratory issues Denies any chest pain or palpitations. Objective Vitals Vital Signs Date Time Temp Pulse Resp B/P (MAP) Pulse Ox O2 Delivery O2 Flow Rate FiO2 07/31/17 08:00 96.0 64 22 153/76 (101) 99 07/31/17 07:30 98 Nasal Cannula 2.00 07/31/17 00:00 96.7 73 17 126/67 (86) 98 07/30/17 21:45 Nasal Cannula 2.00 07/30/17 20:00 97.7 93 17 123/73 (90) 98 07/30/17 19:43 99 Nasal Cannula 2.00 07/30/17 16:03 98 Nasal Cannula 2.00 07/30/17 16:00 96.1 73 22 142/74 (96) 98 07/30/17 12:00 96.0 64 20 143/86 (105) 99 Result Diagram: 07/30/17 0754 07/30/17 0754 Other Results Laboratory Tests Test 07/30/17 07:54 White Blood Count 11.1 TH/MM3 Red Blood Count 3.17 MIL/MM3 Hemoglobin 9.2 GM/DL Hematocrit 27.4 % Mean Corpuscular Volume 86.3 FL Mean Corpuscular Hemoglobin 29.0 PG Mean Corpuscular Hemoglobin Concent 33.6 % Red Cell Distribution Width 16.4 % Platelet Count 323 TH/MM3 Mean Platelet Volume 6.7 FL Neutrophils (%) (Auto) 92.4 % Lymphocytes (%) (Auto) 2.4 % Monocytes (%) (Auto) 5.1 % Eosinophils (%) (Auto) 0.0 % Basophils (%) (Auto) 0.1 % Neutrophils # (Auto) 10.2 TH/MM3 Lymphocytes # (Auto) 0.3 TH/MM3 Monocytes # (Auto) 0.6 TH/MM3 Eosinophils # (Auto) 0.0 TH/MM3 Basophils # (Auto) 0.0 TH/MM3 CBC Comment DIFF FINAL Differential Comment Blood Urea Nitrogen 29 MG/DL Creatinine 0.90 MG/DL Random Glucose 154 MG/DL Calcium Level 8.2 MG/DL Magnesium Level 1.8 MG/DL Sodium Level 140 MEQ/L Potassium Level 4.4 MEQ/L Chloride Level 105 MEQ/L Carbon Dioxide Level 27.6 MEQ/L Anion Gap 7 MEQ/L Estimat Glomerular Filtration Rate 63 ML/MIN Imaging Last Impressions Upper Extremity Ultrasound 07/24/171656 Signed Impressions: Service Date/Time: Monday, July 24, 2017 18:07 - CONCLUSION: The study is negative for upper extremity deep venous thrombosis. Frankie Duncan MD Chest X-Ray 07/24/171653 Signed Impressions: Service Date/Time: Monday, July 24, 2017 17:12 - CONCLUSION: 1. Hyperinflation characteristic of a reported history of COPD. 2. Possible nodule in the right upper lobe may be associated with the anterior second rib. This is more conspicuous on the current exam. CT could be performed for further characterization if clinically warranted Yamil Pozo MD CT Angiography 07/24/171653 Signed Impressions: Service Date/Time: Monday, July 24, 2017 21:39 - CONCLUSION: 1. The study is negative for pulmonary embolism. 2. Severe emphysema, multifocal parenchymal scarring, unchanged from 06/24/17. Frankie Duncan MD Objective Remarks General: AAOx3 Chest: increased air movement bilaterally, slight expiratory wheeze bilaterally Cardiac: Regular Abd: +BS, soft ND/NT Ext: Bilateral UE with swelling, improving Skin: RLE wound dressings are c/d/i, skin is dry and flaking over entire body and face A/P Problem List: (1) COPD exacerbation ICD Codes: J44.1 - Chronic obstructive pulmonary disease with (acute) exacerbation Status: Acute Plan: COPD acute exacerbation with bronchitis - Duo nebs every 4 hours and when necessary - Continue patient's home Symbicort and Combivent - Pt started on Solu-Medrol 40 mg IV twice a day at admission - Chest x-ray (07/25/17) --> Hyperinflation characteristic of a reported history of COPD. Possible nodular in the right upper lobe may be associated with the anterior second rib. There this is more conspicuous on the current exam. CT could be performed for further characteristic of clinically warranted. CT is suggested in 6 months as a conservative follow up, to be checked by PCP. - CT angiogram (07/25/17) --> Negative for pulmonary embolism. Severe emphysema and multifocal parenchymal scarring, unchanged from 06/24/2017 - Solu-Medrol increased to 60mg Q6H on 07/27 - Pt less SOB today and O2 sats are stable. - We may be able to de-escalate the Solu-Medrol to 40mg Q8H tomorrow depending on how she looks. - Cont. Xanax 0.25mg po Q6H PRN anxiety which has been helping - Discussed need for possible BiPAP or even intubation should her respiratory status worsen - Pt is a full code - Appreciate consult from Pulmonary Medicine, pt known to Dr. Villa. Right upper extremity edema - right upper extremity US negative for upper extremity DVT - monitor for s/s of cellulitis - Trial of gentle alva wrap up the bilateral UE to see if that may help with some of the swelling. - Pt wants to hold off on any diuretics. RLE nonhealing wound - Recent admission from June 13, 2017 to July 17, 2017 for large, necrotic open wound right lower extremity x 2 months. - Pt underwent surgical debridement with wound vac placement on 06/15/[address] Clark - Pt underwent multiple vac changes under anesthesia on 06/17/17, 06/19, 06/21, 06/23, 06/26 - Pt was very painful with bedside wound VAC change 07/07 despite PO Dilaudid - Case d/w General Surgery, Dr. Knight (07/07). Dressing changed to wet-to -dry and pt has been tolerating bedside dressing changes - CTA with runoff (07/08) Moderate to severe atherosclerotic disease of aorta without aneurysm. Blood flow in both lower extremities is maintained with good perfusion appreciated to the distal legs bilaterally. No high-grade stenosis or occlusion is visualized. The nonvascular structures visualized demonstrate no acute finding. - RLE daily dressing changes to wet-to-dry, per previous wound care orders (): Cleanse wound to RLE with normal saline and apply oil emulsion gauze ( adaptic) to wound bed and cover with ABD pads , secure with rolled gauze and tape. Cleanse buttock area with skin protectant wipes. Please apply antifungal cream mixed 50 / 50 with Calazime barrier cream BID and PRN and leave open to air. - Appreciate wound care nurse re-evaluation of pts wounds and they report continued improvement and continue on current recommendations. - Cont. daily dressing changes - Pain control PRN with Ultram Rash - rash improving - Unlikely to be infectious - Skin is very dry and flaking over entire body. Orders given to bathe the pt daily and apply moisturizing lotion to entire body. Tachycardia - Outpt 2D echo (04/03/17) --> Mild concentric LVH, Estimated EF 50%, Grade 1 diastolic dysfunction, Moderate mitral valve regurg, Mild tricuspid valve regurg, Normal estimated PA pressure, 32.7mmHg - Telemetry with noted sinus tachycardia - EKG in the ED noted sinus tachycardia - repeat EKG (06/23) --> sinus tachycardia, 109, with occasional PVC - Continue Ultram PRN. - Lexiscan (07/02) --> reviewed with Radiology. EF 61%, subtle inferior/ basilar wall reversible defect - echocardiogram (07/04) --> EF 60-65% - metoprolol 25mg BID and HR has been controlled Hyperglycemia - Pt likely with steroid induced hyperglycemia with her prolonged steroid use - Hgb A1C is 8.6% - Increase Levemir to 15 units Q12H - Low NovoLog SSI, may need to be increased from low to medium dose SSI if BS continue to run high - Accu checks ACHS Assessment and Plan Patient examined. Assessment and plan formulated with Yomaira Lemus PA-C. I agree with the above. Pt less SOB from admission. On PE, pt's lungs had good air movement with rare scattered wheezing. If pt remains stable, I will start weaning pt's IV solumedrol 08/01. Pt RLE wound was examined. Full thickness and circumferential below the knee. Good granulation tissue without signs of infection. Anticipate discharge to SNF in 3-4 days. Yomaira Lemus Jul 31, 2017 09:20 Kin Parsons DO Jul 31, 2017 14:46
[2017-07-31] MEDS: INSULIN ASPART SUPPLEMENTAL SCALE SQ SCH ×4 (09:44→22:25)
[2017-07-31] MEDS: METOPROLOL TARTRATE 25 MG TAB PO SCH ×2 (09:44→22:24)
[2017-07-31] MEDS: LEVOFLOXACIN 500 MG TAB PO SCH (09:44)
[2017-07-31] MEDS: BUDESONIDE-FORMOTEROL 80/4.5 MCG INHALER INH SCH (09:46)
[2017-07-31] MEDS: ALPRAZolam 0.25 MG TAB PO PRN (14:11)
--- NOTE | 2017-07-31 15:28 | PD.CONS ---
Consult Service Palliative Care Consult Requested By Dr. Parsons Primary Care Physician Paola Monzon MD Reason for Consultation a. To assist with evaluation and management of symptoms including: Dyspnea, anxiety. b. To assist medical decision maker(s) with: better understanding of current medical conditions; weighing benefits/burdens of medical treatment options; making medical treatment decisions. HPI History of Present Illness This is a very pleasant 66-year-old female who was recently hospitalized from June 13 - July 17 for right lower extremity wound. She has a history of severe COPD, continued tobacco use, steroid dependence with resultant diabetes and history of breast cancer. She was discharged from [place] to [facility] for rehabilitation and was undergoing physical therapy when she developed an allergic reaction to something at the facility, questionably a latex pillow. She developed upper extremity swelling, worsening dyspnea and was transported to the hospital for further evaluation and management. ED course: * Laboratory: WBC 10.6, hemoglobin 10.6, hematocrit 31.7, platelets 311, prothrombin time 10.2, INR 1.0, sodium 135, potassium 4.9, BUN 10, creatinine 0.78, lactic acid 1.8, troponin I less than 0.02, B natruretic peptide 71. Urinalysis was negative. * Vital signs: Temperature 101, pulse 95, respiratory rate 18, blood pressure 126/79, 99% on room air. * Radiology: Chest x-ray shows hyperinflation characteristic of reported history of COPD, possible nodule in the right upper lobe may be associated with the anterior second rib. This is more conspicuous on the current exam. CT angiography was negative for pulmonary embolism, showed severe emphysema with multifocal parenchymal scarring unchanged from 06/24/2017. Upper extremity ultrasound was negative for deep vein thrombosis. Patient is sitting up in bed, visibly dyspneic at rest, worsening with conversation, stable on nasal cannula. She expressed some frustration with being unable to exercise and regain her strength due to her chronic dyspnea. Her goal is to go home and to be able to breathe better. We reviewed CODE STATUS to include intubation, likely difficulty extubating due to the severe lung disease and the likelihood that she would require a tracheostomy and PEG tube. She stated she wished to discuss that with her prior to determining CODE STATUS and planned to do that this evening. Plan was made to rediscuss at next visit. . Function/Cognitive Trajectory She states that she has been in a bed for over 50 days and feels that she has lost a great deal of strength in her legs. She indicates that she has 14 days of therapy remaining at [facility] which is on hold right now due to the complication. She would like to maximize physical therapy in the hospital if her respiratory status will allow. . Review of Systems Constitutional: COMPLAINS OF: Generalized weakness Endocrine: DENIES: Abnorml menstrual pattern, Heat/cold intolerance, Polydipsia , Polyuria, Polyphagia Eyes: DENIES: Blurred vision, Diplopia, Eye inflammation, Eye pain, Vision loss , Photosensitivity, Double Vision, Blind spots Cardiovascular: COMPLAINS OF: Dyspnea on Exertion Gastrointestinal: DENIES: Abdominal pain, Black stools, Bloody stools, Constipation, Diarrhea, Nausea, Vomiting, Difficulty Swallowing, Anorexia, Dyspepsia or heartburn, Excessive gas, Bloating, Vomiting blood Genitourinary: DENIES: Abnormal vaginal bleeding, Dysmenorrhea, Dyspareunia, Sexual dysfunction, Urinary frequency, Urinary incontinence, Urgency, Hematuria , Dysuria, Nocturia, Vaginal discharge, Hesitancy, Dribbling, Decreased stream Musculoskeletal: DENIES: Joint pain, Muscle aches, Stiffness, Joint Swelling, Back pain, Neck pain, Decreased range of motion Integumentary: COMPLAINS OF: Excessive dryness Hematologic/Lymphatics: DENIES: Bruising, Lymphadenopathy, Prolonged bleed w/ proced, History of transfusions Immunologic/Allergic: DENIES: Eczema, Urticaria Neurologic: DENIES: Abnormal gait, Headache, Localized weakness, Paresthesias, Seizures, Speech Problems, Tremor, Poor Balance, Change in smell or taste Psychiatric: DENIES: Anxiety, Confusion, Mood changes, Depression, Hallucinations, Agitation, Suicidal Ideation, Homicidal Ideation, Delusions, Anhedonia Past Family Social History Coded Allergies: codeine (Verified Allergy, Severe, 07/24/17) morphine (Unverified Allergy, Severe, Anaphylaxis, 07/24/17) sulfamethoxazole (Verified Allergy, Severe, 07/24/17) trimethoprim (Verified Allergy, Severe, 07/24/17) Past Medical History COPD Asthma Chronic tobacco use Bowel obstruction Steroid-induced diabetes History of breast cancer Long-term steroid use . Past Surgical History Right breast lumpectomy with subsequent radiation therapy in 1995 Partial colon resection due to obstruction . Reported Medications Reported Meds & Active Scripts Active Ultram (Tramadol HCl) 50 Mg Tab 50 Mg PO Q6H PRN [Albuterol-Ipratropium Neb] 1 AMPULE Nebu 1 Ampule NEB Q6HR WHILE AWAKE NEB 30 Days Acidophilus/l-Sporogenes (Lactobacillus Acidophilus) 35 Million Cell-25 Million Cell Tab 1 Tab PO TID 14 Days Prednisone 5 Mg Tab 5 Mg PO DAILY Metoprolol Tartrate 25 Mg Tab 25 Mg PO Q12HR Reported Symbicort Inh (Budesonide/Formoterol Fumarate) 80-4.5 Mcg/Act Aero 2 Puff INH Q12HR Combivent Respimat Inh (Ipratropium-Albuterol Inh) 20-100 Alf/Act Aero 1 Puff INH QID . Current Medications Medications (Trade) Dose Ordered Sig/Ely Route Start Time Stop Time Status Last Admin (Symbicort 80-4.5 Mcg Inh) 2 puff Q12HR INH 07/25/17 09:00 07/31/17 09:46 (Ultram) 50 mg Q6H PRN PO 07/24/17 23:45 (D50w (Vial) Inj) 50 ml UNSCH PRN IV PUSH 07/25/17 07:30 (Glucagon Inj) 1 mg UNSCH PRN OTHER 07/25/17 07:30 (NovoLOG SUPPLEMENTAL SCALE) 1 ACHS SLIDING SCALE SQ 07/25/17 08:00 07/31/17 12:20 (Lactinex) 1 tab TID PO 07/25/17 09:00 07/31/17 12:19 (Lopressor) 25 mg Q12HR PO 07/25/17 09:00 07/31/17 09:44 (SoluMEDROL INJ) 60 mg Q6HR IV PUSH 07/27/17 18:00 07/31/17 12:19 (Xanax) 0.25 mg Q8H PRN PO 07/29/17 15:00 07/31/17 14:11 (Levaquin) 500 mg DAILY@1100 PO 07/29/17 15:00 07/31/17 09:44 (Duoneb Neb) 1 ampule Q4HR NEB NEB 07/30/17 12:00 07/31/17 11:29 (Duoneb Neb) 1 ampule Q2HR NEB PRN NEB 07/30/17 10:30 (Levemir Inj) 10 units Q12HR SQ 07/31/17 21:00 . Family History Father of coronary artery disease Mother at an old age but was a "hypochondriac. . Substance Use Tobacco: Continues to smoke 5-6 cigarettes a day. Alcohol: Denies. Prescription med abuse: Denies. Illicits: Denies. . Psychosocial History Originally from [place], she moved to the area 9 years ago. Just got for the third time August 2016. . Spiritual/Cultural Factors Not an important concept to the patient. . Living Will: Never completed Health Care Surrogate: Copy in medical record Durable Power of Canceling And Cutting Control Clerk: Never completed Date completed: 07/05/17 . Health Care Surrogate(s): : Krishan Martell, , . Arcelia Smith , . . Documented care wishes: Not completed . Today's verbally stated goals: Wishes to discuss with her . . Family/friends goals: No family at bedside. . Ethical and Legal Issues None noted. . Physical Exam Vital Signs Date Time Temp Pulse Resp B/P (MAP) Pulse Ox O2 Delivery O2 Flow Rate FiO2 07/31/17 12:00 97.0 93 22 138/75 (96) 95 07/31/17 08:30 99 Nasal Cannula 2.00 07/31/17 08:00 96.0 64 22 153/76 (101) 99 07/31/17 07:30 98 Nasal Cannula 2.00 07/31/17 07:25 98 Nasal Cannula 2.00 07/31/17 00:00 96.7 73 17 126/67 (86) 98 07/30/17 21:45 Nasal Cannula 2.00 07/30/17 20:00 97.7 93 17 123/73 (90) 98 07/30/17 19:43 99 Nasal Cannula 2.00 07/30/17 16:03 98 Nasal Cannula 2.00 07/30/17 16:00 96.1 73 22 142/74 (96) 98 Exam CONSTITUTIONAL/GENERAL: This is an moderately obese patient, sitting up in bed in no apparent distress. TUBES/LINES/DRAINS: PIV LESTER SKIN: No jaundice, rashes, or lesions. Ecchymoses on upper extremities. Skin dry and flaky. No wounds seen anteriorly. Skin temperature appropriate. Not diaphoretic. HEAD: Atraumatic. Normocephalic. EYES: Pupils equal and round and reactive. Extraocular motions intact. No scleral icterus. No injection or drainage. Fundi not examined. ENT: Hearing grossly normal. Nose without bleeding or purulent drainage. Throat without visible erythema, exudates, masses, or lesions. NECK: Trachea midline. Supple, nontender. No palpable thyroid enlargement or nodularity. CARDIOVASCULAR: Regular rate and rhythm without murmurs, gallops, or rubs. No JVD. Peripheral pulses symmetric. RESPIRATORY/CHEST: Breath sounds are clear, diminished, equal bilaterally with scattered wheezes. GASTROINTESTINAL: Abdomen soft, non-tender, nondistended. No hepato-splenomegaly , or palpable masses. No guarding. Bowel sounds present. GENITOURINARY: Without palpable bladder distension. MUSCULOSKELETAL: Extremities without clubbing or cyanosis. 1+ generalized edema. No joint tenderness or effusion noted. No calf tenderness. No mottling or clubbing. NEUROLOGICAL: Awake and alert. Motor and sensory grossly within normal limits. Follows commands. Cognitively sharp. Moves all extremities. PSYCHIATRIC: Mild anxiety. No apparent hallucinations or other psychotic thought process. . Diagnostic Tests Laboratory Laboratory Tests Test 07/30/17 07:54 White Blood Count 11.1 TH/MM3 (4.0-11.0) Red Blood Count 3.17 MIL/MM3 (4.00-5.30) Hemoglobin 9.2 GM/DL (11.6-15.3) Hematocrit 27.4 % (35.0-46.0) Mean Corpuscular Volume 86.3 FL (80.0-100.0) Mean Corpuscular Hemoglobin 29.0 PG (27.0-34.0) Mean Corpuscular Hemoglobin Concent 33.6 % (32.0-36.0) Red Cell Distribution Width 16.4 % (11.6-17.2) Platelet Count 323 TH/MM3 (150-450) Mean Platelet Volume 6.7 FL (7.0-11.0) Neutrophils (%) (Auto) 92.4 % (16.0-70.0) Lymphocytes (%) (Auto) 2.4 % (9.0-44.0) Monocytes (%) (Auto) 5.1 % (0.0-8.0) Eosinophils (%) (Auto) 0.0 % (0.0-4.0) Basophils (%) (Auto) 0.1 % (0.0-2.0) Neutrophils # (Auto) 10.2 TH/MM3 (1.8-7.7) Lymphocytes # (Auto) 0.3 TH/MM3 (1.0-4.8) Monocytes # (Auto) 0.6 TH/MM3 (0-0.9) Eosinophils # (Auto) 0.0 TH/MM3 (0-0.4) Basophils # (Auto) 0.0 TH/MM3 (0-0.2) CBC Comment DIFF FINAL Differential Comment Blood Urea Nitrogen 29 MG/DL (7-18) Creatinine 0.90 MG/DL (0.50-1.00) Random Glucose 154 MG/DL (74-106) Calcium Level 8.2 MG/DL (8.5-10.1) Magnesium Level 1.8 MG/DL (1.5-2.5) Sodium Level 140 MEQ/L (136-145) Potassium Level 4.4 MEQ/L (3.5-5.1) Chloride Level 105 MEQ/L (98-107) Carbon Dioxide Level 27.6 MEQ/L (21.0-32.0) Anion Gap 7 MEQ/L (5-15) Estimat Glomerular Filtration Rate 63 ML/MIN (>89) . Result Diagram: 07/30/17 0754 07/30/17 0754 Microbiology Microbiology Date/Time Source Procedure Growth Status 07/24/17 19:18 Blood Peripheral Aerobic Blood Culture - Final NO GROWTH IN 5 DAYS Complete 07/24/17 19:18 Blood Peripheral Anaerobic Blood Culture - Final NO GROWTH IN 5 DAYS Complete 07/24/17 20:40 Nasal Aspirate Influenza Types A,B Antigen (INGA) - Final NEGATIVE FOR FLU A AND B ANTIGEN.... Complete . Imaging Last Impressions Upper Extremity Ultrasound 07/24/171656 Signed Impressions: Service Date/Time: Monday, July 24, 2017 18:07 - CONCLUSION: The study is negative for upper extremity deep venous thrombosis. Frankie Duncan MD Chest X-Ray 07/24/175 Signed Impressions: Service Date/Time: Monday, July 24, 2017 17:12 - CONCLUSION: 1. Hyperinflation characteristic of a reported history of COPD. 2. Possible nodule in the right upper lobe may be associated with the anterior second rib. This is more conspicuous on the current exam. CT could be performed for further characterization if clinically warranted Yamil Pozo MD CT Angiography 07/24/17 6599 Signed Impressions: Service Date/Time: Monday, July 24, 2017 21:39 - CONCLUSION: 1. The study is negative for pulmonary embolism. 2. Severe emphysema, multifocal parenchymal scarring, unchanged from 06/24/17. Frankie Duncan MD . Patient/Family Conference Present at Family Conference: No family at bedside at this time. . Issues Discussed: * Palliative care role, purpose, approach * Additional medical, psychosocial, and spiritual history * Patients general health, functional status, and cognitive changes in the months leading up to the current hospitalization * Patient/family understanding of the current medical problems * Patient/family understanding of prognosis * Patients goals of care as best understood from advance directives and/or conversations and/or values * Current medical treatment options and benefits/burdens of those options * Likely scenarios comparing ongoing aggressive care with a transition to comfort measures only * Questions answered to the best of my ability * Palliative care contact information provided Assessment and Plan Disease Oriented Problem List: (1) Steroid-induced diabetes (2) Open leg wound (3) COPD exacerbation (4) Rash Symptom Scale: (1) Dyspnea and respiratory abnormalities 0-10 Scale: 8 (Dyspneic at rest, worsening with conversation.) (2) Anxiety 0-10 Scale: 5 (Dyspneic at rest, worsening with conversation.) Pertinent Non-Medical Issues Psychosocial:Originally from [place], she moved to the area 9 years ago. Just got for the third time August 2016. Spiritual: Not an important concept to the patient. Legal: She has named her healthcare surrogate. Ethical issues impacting care: None noted. . Important Contacts : Krishan Jasbir, , . Arcelia Smith , . . Prognosis Her prognosis is guarded. She has extensive stage IV COPD with increasing hospitalizations and complications of long-term steroid use to include spontaneous wound, steroid-induced diabetes and poor skin integrity and healing. She has undergone 5 surgeries to correct a spontaneous wound that occurred in her right lower extremity. She has now been in either hospital or rehabilitation facility since 06/13/2017. Given her significant dyspnea and risk for pneumonia, she is at elevated risk for further complications, recurrent hospitalizations and decline. . Code Status: Full Code Plan PLAN: Legal decision maker: Currently the patient is capacitated to make her own decisions, however in the case of her incapacitation she has designated her as her primary healthcare surrogate and Arcelia Smith as her alternate. Goals: Currently aggressive. CODE STATUS: FULL CODE SYMPTOMS: * Dyspnea: She is dyspneic at rest, worsening with conversation. It is a significant impediment to her quality of life. She has been diagnosed with stage IV COPD, and continues to smoke when able to. She is receiving steroids, DuoNeb, Symbicort, Xanax and Levaquin. * Anxiety: She has chronic anxiety, likely due to underlying COPD, air hunger and hypoxia. She has low dose Xanax available as needed and has been using approximately 1 dose daily. SUMMARY This is a 66-year-old female with stage IV COPD, who had continued to smoke. She has experienced 2 recent hospitalizations beginning June 13, 2017 and is experiencing the decline associated with long-term hospitalization. She has become significantly weaker and is intolerant of extended exercise due to her dyspnea. She has not yet begun to address CODE STATUS with her family. She will be provided a living will form and a 5 wishes booklet as a basis for the conversation that she wants to have with her this evening regarding her wishes. She would be hospice appropriate if goals were consistent. Palliative care will continue to follow the patient during hospital course as condition evolves, to assist patient/decision-maker with understanding of their medical conditions, weighing benefits/burdens of treatment options, for clarification of goals of treatment. Additionally will assist with any symptoms of palliative concern. . Thank you for the opportunity to participate in the care of Ms. Gould. Attestation To help prompt me to consider important information that might be impacting today's encounter and assessment, information from prior notes written by myself or my colleagues may have been "brought forward" into today's note. My signature on this note, however, is an attestation that I personally performed the exam, history, and/or decision-making noted today, and, unless otherwise indicated, the interactions with patient, family, and staff as well as the review of records all occurred today. I also attest that the listed assessment and stated plan reflect my best clinical judgment today based on the combination of historical information, prior notes, and today's exam/ interactions. When time spent is documented, it refers only to time spent today by the signer, or if indicated, combined time spent today by collaborating physician/nurse practitioner. . Vanessa Mason Jul 31, 2017 15:23
--- NOTE | 2017-07-31 16:29 | HHI.PR ---
Subjective Remarks Patient remains on 2L oxygen with good sats. Afebrile. Feels better " Steroids opening my lungs" Objective Vital Signs Vital Signs Date Time Temp Pulse Resp B/P (MAP) Pulse Ox O2 Delivery O2 Flow Rate FiO2 07/31/17 15:38 98 Nasal Cannula 2.00 07/31/17 12:00 97.0 93 22 138/75 (96) 95 07/31/17 08:30 99 Nasal Cannula 2.00 07/31/17 08:00 96.0 64 22 153/76 (101) 99 07/31/17 07:30 98 Nasal Cannula 2.00 07/31/17 07:25 98 Nasal Cannula 2.00 07/31/17 00:00 96.7 73 17 126/67 (86) 98 07/30/17 21:45 Nasal Cannula 2.00 07/30/17 20:00 97.7 93 17 123/73 (90) 98 07/30/17 19:43 99 Nasal Cannula 2.00 I/O 07/30/17 07/30/17 07/30/17 07/31/17 07/31/17 07/31/17 07:00 15:00 23:00 07:00 15:00 23:00 Intake Total 240 ml 1400 ml 240 ml Output Total 950 ml Balance 240 ml 450 ml 240 ml Intake Oral 240 ml 1400 ml 240 ml Output Urine Total 950 ml # Voids 3 3 # Bowel Movements 1 2 Result Diagram: 07/30/17 0754 07/30/17 0754 Objective Remarks GENERAL: elderly female, mild sob SKIN: Warm and dry. HEAD: Normocephalic. EYES: No scleral icterus. No injection or drainage. NECK: Supple, trachea midline. No JVD or lymphadenopathy. CARDIOVASCULAR: Regular rate and rhythm without murmurs, gallops, or rubs. RESPIRATORY: Breath sounds equal bilaterally. Scattered wheezing, coarse BS GASTROINTESTINAL: Abdomen soft, non-tender, nondistended. MUSCULOSKELETAL: No cyanosis, or edema. Right leg wound Neuro: Awake and alert. A/P Assessment and Plan 1)Resp Insuff 2)COPD exac 3)Leg wound 4)Anemia 5)Pulm scarring per CT chest PLAN Continue with oxygen keep sats >92% Bronchodilators ( Duoneb, Symbicort) Continue Solumederol 60mg Q6 NIPPV PRN for resp distress. Continue Levaquin for COPD exac Wound care GI/DVT prophylaxis - per primary team Sameer Villa MD Jul 31, 2017 16:29
[2017-07-31] MEDS ORDERED: INSULIN DETEMIR 100 UNITS/ML VIAL SQ SCH (21:00)
[2017-07-31] MEDS: INSULIN DETEMIR 100 UNITS/ML VIAL SQ SCH (22:24)
[2017-08-01] VITALS (8 sets, daily range): BP systolic 130–168; BP diastolic 79–96; PULSE 71–92; RESP 17–22; TEMP 97–98.2; O2SAT 97–99
[2017-08-01] MEDS: BUDESONIDE-FORMOTEROL 80/4.5 MCG INHALER INH SCH ×3 (01:18→20:46)
[2017-08-01] MEDS: methylPREDNISolone SOD SUCC 125 MG/2 ML VIAL IV PUSH SCH ×5 (01:22→23:52)
[2017-08-01] MEDS: RESP: ALBUTEROL 2.5 MG/IPRATROPIUM 0.5 MG NEB (SCH) NEB ×5 (03:43→20:25)
[2017-08-01] MEDS: LACTOBACILLUS ACIDOPHILUS TAB PO SCH ×3 (08:37→16:31)
[2017-08-01] MEDS: METOPROLOL TARTRATE 25 MG TAB PO SCH ×2 (08:37→20:45)
[2017-08-01] MEDS: INSULIN ASPART SUPPLEMENTAL SCALE SQ SCH ×4 (08:38→20:54)
[2017-08-01] MEDS: INSULIN DETEMIR 100 UNITS/ML VIAL SQ SCH ×2 (08:40→20:54)
[2017-08-01 09:14] LABS: AUTOMATED NEUTROPHIL # 6.6 TH/MM3 (1.8-7.7); BASOPHIL % 0.2 % (0.0-2.0); HEMATOCRIT 27.2 % (35.0-46.0); HEMOGLOBIN 9.2 GM/DL (11.6-15.3); LYMPH % 2.8 % (9.0-44.0); LYMPHOCYTE # 0.2 TH/MM3 (1.0-4.8); MEAN CELL VOLUME 87.8 FL (80.0-100.0); MEAN CORPUSCULAR HEMOGLOBIN 29.7 PG (27.0-34.0); MEAN CORPUSCULAR HGB CONC 33.8 % (32.0-36.0); MEAN PLATELET VOLUME 6.8 FL (7.0-11.0); MONO % 3.9 % (0.0-8.0); MONOCYTE # 0.3 TH/MM3 (0-0.9); NEUT % 93.1 % (16.0-70.0); PLATELET COUNT 314 TH/MM3 (150-450); RED BLOOD COUNT 3.09 MIL/MM3 (4.00-5.30); RED CELL DISTRIBUTION WIDTH 16.6 % (11.6-17.2); WHITE BLOOD COUNT 7.1 TH/MM3 (4.0-11.0)
[2017-08-01 09:41] LABS: BICARBONATE 26.9 MEQ/L (21.0-32.0); CALCIUM 8.1 MG/DL (8.5-10.1); CREATININE 0.72 MG/DL (0.50-1.00); MAGNESIUM 1.9 MG/DL (1.5-2.5)
[2017-08-01 10:07] LABS: BANDS 7 % (0-6); LYMPHOCYTES 7 % (9-44); MONOCYTES 4 % (0-8); MYELOCYTES 2 % (0-0); NEUTROPHIL # MANUAL DIFF 6.3 TH/MM3 (1.8-7.7); OVALOCYTES 1+ (NORMAL); POLYS (SEG NEUTROPHILS) 80 % (16-70)
--- NOTE | 2017-08-01 10:15 | HHI.PR ---
Subjective Remarks anxious. says doesn't feel ready to taper steroids sob no improvement over yesterday Objective Vitals heart rg lung wheezing kolby abd s/nt ext no edema right rebolledo bandaged Vital Signs Date Time Temp Pulse Resp B/P (MAP) Pulse Ox O2 Delivery O2 Flow Rate FiO2 08/01/17 08:00 97.0 71 18 137/79 (98) 98 08/01/17 07:55 98 Nasal Cannula 2.00 08/01/17 00:00 97.7 90 20 130/92 (105) 99 07/31/17 23:12 98 Nasal Cannula 2.00 07/31/17 21:10 98 Nasal Cannula 2.00 07/31/17 20:00 98.1 106 20 121/73 (89) 98 07/31/17 16:00 98.3 88 20 133/92 (106) 98 07/31/17 15:38 98 Nasal Cannula 2.00 07/31/17 12:00 97.0 93 22 138/75 (96) 95 Result Diagram: 08/01/1736 08/01/1736 Imaging Last Impressions Upper Extremity Ultrasound 07/24/171656 Signed Impressions: Service Date/Time: Monday, July 24, 2017 18:07 - CONCLUSION: The study is negative for upper extremity deep venous thrombosis. Frankie Duncan MD Chest X-Ray 07/24/171653 Signed Impressions: Service Date/Time: Monday, July 24, 2017 17:12 - CONCLUSION: 1. Hyperinflation characteristic of a reported history of COPD. 2. Possible nodule in the right upper lobe may be associated with the anterior second rib. This is more conspicuous on the current exam. CT could be performed for further characterization if clinically warranted Yamil Pozo MD CT Angiography 07/24/171653 Signed Impressions: Service Date/Time: Monday, July 24, 2017 21:39 - CONCLUSION: 1. The study is negative for pulmonary embolism. 2. Severe emphysema, multifocal parenchymal scarring, unchanged from 06/24/17. Frankie Duncan MD A/P Problem List: (1) COPD exacerbation ICD Codes: J44.1 - Chronic obstructive pulmonary disease with (acute) exacerbation Status: Acute Plan: COPD acute exacerbation with bronchitis - Duo nebs every 4 hours and when necessary - Continue patient's home Symbicort and Combivent - Pt started on Solu-Medrol 40 mg IV twice a day at admission - Chest x-ray (07/25/17) --> Hyperinflation characteristic of a reported history of COPD. Possible nodular in the right upper lobe may be associated with the anterior second rib. There this is more conspicuous on the current exam. CT could be performed for further characteristic of clinically warranted. CT is suggested in 6 months as a conservative follow up, to be checked by PCP. - CT angiogram (07/25/17) --> Negative for pulmonary embolism. Severe emphysema and multifocal parenchymal scarring, unchanged from 06/24/2017 - Solu-Medrol increased to 60mg Q6H on 07/27 - cont current treatment for now and reevaluate - - Cont. Xanax 0.25mg po Q6H PRN anxiety which has been helping - Discussed need for possible BiPAP or even intubation should her respiratory status worsen - Pt is a full code - Appreciate consult from Pulmonary Medicine, pt known to Dr. Villa. Right upper extremity edema - right upper extremity US negative for upper extremity DVT - monitor for s/s of cellulitis - Trial of gentle alva wrap up the bilateral UE to see if that may help with some of the swelling. - Pt wants to hold off on any diuretics. RLE nonhealing wound - Recent admission from June 13, 2017 to July 17, 2017 for large, necrotic open wound right lower extremity x 2 months. - Pt underwent surgical debridement with wound vac placement on 06/15/[address] Clark - Pt underwent multiple vac changes under anesthesia on 06/17/17, 06/19, 06/21, 06/23, 06/26 - Pt was very painful with bedside wound VAC change 07/07 despite PO Dilaudid - Case d/w General Surgery, Dr. Knight (07/07). Dressing changed to wet-to -dry and pt has been tolerating bedside dressing changes - CTA with runoff (07/08) Moderate to severe atherosclerotic disease of aorta without aneurysm. Blood flow in both lower extremities is maintained with good perfusion appreciated to the distal legs bilaterally. No high-grade stenosis or occlusion is visualized. The nonvascular structures visualized demonstrate no acute finding. - RLE daily dressing changes to wet-to-dry, per previous wound care orders (): Cleanse wound to RLE with normal saline and apply oil emulsion gauze ( adaptic) to wound bed and cover with ABD pads , secure with rolled gauze and tape. Cleanse buttock area with skin protectant wipes. Please apply antifungal cream mixed 50 / 50 with Calazime barrier cream BID and PRN and leave open to air. - Appreciate wound care nurse re-evaluation of pts wounds and they report continued improvement and continue on current recommendations. - Cont. daily dressing changes - Pain control PRN with Ultram Rash - rash improving - Unlikely to be infectious - Skin is very dry and flaking over entire body. Orders given to bathe the pt daily and apply moisturizing lotion to entire body. Tachycardia - Outpt 2D echo (04/03/17) --> Mild concentric LVH, Estimated EF 50%, Grade 1 diastolic dysfunction, Moderate mitral valve regurg, Mild tricuspid valve regurg, Normal estimated PA pressure, 32.7mmHg - Telemetry with noted sinus tachycardia - EKG in the ED noted sinus tachycardia - repeat EKG (06/23) --> sinus tachycardia, 109, with occasional PVC - Continue Ultram PRN. - Lexiscan (07/02) --> reviewed with Radiology. EF 61%, subtle inferior/ basilar wall reversible defect - echocardiogram (07/04) --> EF 60-65% - metoprolol 25mg BID and HR has been controlled Hyperglycemia - Pt likely with steroid induced hyperglycemia with her prolonged steroid use - Hgb A1C is 8.6% - Increased Levemir to 15 units Q12H - Low NovoLog SSI, may need to be increased from low to medium dose SSI if BS continue to run high - Accu checks ACHS Assessment and Plan Patient examined. Assessment and plan formulated with Yomaira Lemus PA-C. I agree with the above. Pt less SOB from admission. On PE, pt's lungs had good air movement with rare scattered wheezing. If pt remains stable, I will start weaning pt's IV solumedrol 08/01. Pt RLE wound was examined. Full thickness and circumferential below the knee. Good granulation tissue without signs of infection. Anticipate discharge to SNF in 3-4 days. Ellis Eason MD Aug 01, 2017 10:15
[2017-08-01] MEDS: LEVOFLOXACIN 500 MG TAB PO SCH (12:13)
[2017-08-01] MEDS: ALPRAZolam 0.25 MG TAB PO PRN (16:31)
--- NOTE | 2017-08-01 19:46 | HHI.PR ---
Subjective Remarks Patient remains on 2L oxygen with good sats. Afebrile. Feels better Wheezing improved comfortable at BS Objective Vital Signs Vital Signs Date Time Temp Pulse Resp B/P (MAP) Pulse Ox O2 Delivery O2 Flow Rate FiO2 08/01/17 16:02 97 Nasal Cannula 2.00 08/01/17 16:00 98.2 92 17 151/80 (103) 98 08/01/17 12:00 97.7 83 18 168/96 (120) 97 08/01/17 08:30 98 Nasal Cannula 2.00 21 08/01/17 08:00 97.0 71 18 137/79 (98) 98 08/01/17 07:55 98 Nasal Cannula 2.00 08/01/17 00:00 97.7 90 20 130/92 (105) 99 07/31/17 23:12 98 Nasal Cannula 2.00 07/31/17 21:10 98 Nasal Cannula 2.00 07/31/17 20:00 98.1 106 20 121/73 (89) 98 I/O 07/31/17 07/31/17 07/31/17 08/01/17 08/01/17 08/01/17 07:00 15:00 23:00 07:00 15:00 23:00 Intake Total 240 ml 1600 ml 1050 ml Output Total 850 ml 200 ml 600 ml Balance 240 ml 750 ml -200 ml 450 ml Intake Oral 240 ml 1600 ml 1050 ml Output Urine Total 850 ml 200 ml 600 ml # Voids 3 # Bowel Movements 2 3 Result Diagram: 08/01/17 0736 08/01/17 0736 Objective Remarks GENERAL: elderly female, mild sob SKIN: Warm and dry. HEAD: Normocephalic. EYES: No scleral icterus. No injection or drainage. NECK: Supple, trachea midline. No JVD or lymphadenopathy. CARDIOVASCULAR: Regular rate and rhythm without murmurs, gallops, or rubs. RESPIRATORY: Breath sounds equal bilaterally. Scattered wheezing, coarse BS GASTROINTESTINAL: Abdomen soft, non-tender, nondistended. MUSCULOSKELETAL: No cyanosis, or edema. Right leg wound Neuro: Awake and alert. A/P Assessment and Plan 1)Resp Insuff 2)COPD exac 3)Leg wound 4)Anemia 5)Pulm scarring per CT chest PLAN Continue with oxygen keep sats >92% Bronchodilators ( Duoneb, Symbicort) Continue Solumederol 60mg Q6 NIPPV PRN for resp distress. Continue Levaquin for COPD exac Wound care GI/DVT prophylaxis - per primary team Change to PO steroids in AM Sameer Villa MD Aug 01, 2017 19:46
[2017-08-02] VITALS: BP 135/85; PULSE 81; RESP 22; TEMP 98.4; O2SAT 98
[2017-08-02] MEDS: RESP: ALBUTEROL 2.5 MG/IPRATROPIUM 0.5 MG NEB (SCH) NEB ×6 (00:26→19:58)
[2017-08-02] MEDS: methylPREDNISolone SOD SUCC 125 MG/2 ML VIAL IV PUSH SCH ×2 (06:13→11:08)
[2017-08-02 07:39] VITALS: O2SAT 97
[2017-08-02 08:00] VITALS: BP 121/80; PULSE 83; RESP 18; TEMP 97.3; O2SAT 99
[2017-08-02] MEDS: INSULIN ASPART SUPPLEMENTAL SCALE SQ SCH ×4 (08:00→20:49)
[2017-08-02] MEDS: METOPROLOL TARTRATE 25 MG TAB PO SCH ×2 (08:51→20:48)
[2017-08-02] MEDS: LACTOBACILLUS ACIDOPHILUS TAB PO SCH ×3 (08:51→16:51)
[2017-08-02] MEDS: BUDESONIDE-FORMOTEROL 80/4.5 MCG INHALER INH SCH ×2 (08:52→20:49)
[2017-08-02] MEDS: INSULIN DETEMIR 100 UNITS/ML VIAL SQ SCH ×2 (08:52→20:49)
[2017-08-02] MEDS: LEVOFLOXACIN 500 MG TAB PO SCH (11:08)
[2017-08-02 12:00] VITALS: BP 149/77; PULSE 71; RESP 17; TEMP 98; O2SAT 98
[2017-08-02 16:00] VITALS: BP 131/82; PULSE 82; RESP 18; TEMP 97.7; O2SAT 98
[2017-08-02] MEDS ORDERED: methylPREDNISolone SOD SUCC 40 MG/1 ML VIAL IV PUSH ONE (16:00)
--- NOTE | 2017-08-02 16:44 | HHI.PR ---
Subjective Remarks Patient reports difficulty taking a deep breath and also c/o, "stress" Objective Vitals Vital Signs Date Time Temp Pulse Resp B/P (MAP) Pulse Ox O2 Delivery O2 Flow Rate FiO2 08/02/17 16:00 97.7 82 18 131/82 (98) 98 08/02/17 12:00 98.0 71 17 149/77 (101) 98 08/02/17 09:01 Nasal Cannula 2.00 08/02/17 08:00 97.3 83 18 121/80 (94) 99 08/02/17 07:39 97 Nasal Cannula 2.00 08/02/17 00:00 98.4 81 22 135/85 (102) 98 08/01/17 20:25 98 Nasal Cannula 2.00 08/01/17 20:00 98.0 83 22 159/82 (107) 97 08/01/17 19:10 3.00 Result Diagram: 08/01/17 0736 08/01/17 0736 Other Results Laboratory Tests Test 08/01/17 07:36 White Blood Count 7.1 TH/MM3 Red Blood Count 3.09 MIL/MM3 Hemoglobin 9.2 GM/DL Hematocrit 27.2 % Mean Corpuscular Volume 87.8 FL Mean Corpuscular Hemoglobin 29.7 PG Mean Corpuscular Hemoglobin Concent 33.8 % Red Cell Distribution Width 16.6 % Platelet Count 314 TH/MM3 Mean Platelet Volume 6.8 FL Neutrophils (%) (Auto) 93.1 % Lymphocytes (%) (Auto) 2.8 % Monocytes (%) (Auto) 3.9 % Eosinophils (%) (Auto) 0.0 % Basophils (%) (Auto) 0.2 % Neutrophils # (Auto) 6.6 TH/MM3 Lymphocytes # (Auto) 0.2 TH/MM3 Monocytes # (Auto) 0.3 TH/MM3 Eosinophils # (Auto) 0.0 TH/MM3 Basophils # (Auto) 0.0 TH/MM3 CBC Comment AUTO DIFF Differential Total Cells Counted 100 Neutrophils % (Manual) 80 % Band Neutrophils % 7 % Lymphocytes % 7 % Monocytes % 4 % Neutrophils # (Manual) 6.3 TH/MM3 Myelocytes 2 % Differential Comment FINAL DIFF MANUAL Platelet Estimate NORMAL Platelet Morphology Comment NORMAL Ovalocytes 1+ Blood Urea Nitrogen 26 MG/DL Creatinine 0.72 MG/DL Random Glucose 168 MG/DL Calcium Level 8.1 MG/DL Magnesium Level 1.9 MG/DL Sodium Level 142 MEQ/L Potassium Level 4.1 MEQ/L Chloride Level 106 MEQ/L Carbon Dioxide Level 26.9 MEQ/L Anion Gap 9 MEQ/L Estimat Glomerular Filtration Rate 81 ML/MIN Imaging Last Impressions Upper Extremity Ultrasound 07/24/171656 Signed Impressions: Service Date/Time: Monday, July 24, 2017 18:07 - CONCLUSION: The study is negative for upper extremity deep venous thrombosis. Frankie Duncan MD Chest X-Ray 07/24/171653 Signed Impressions: Service Date/Time: Monday, July 24, 2017 17:12 - CONCLUSION: 1. Hyperinflation characteristic of a reported history of COPD. 2. Possible nodule in the right upper lobe may be associated with the anterior second rib. This is more conspicuous on the current exam. CT could be performed for further characterization if clinically warranted Yamil Pozo MD CT Angiography 07/24/171653 Signed Impressions: Service Date/Time: Monday, July 24, 2017 21:39 - CONCLUSION: 1. The study is negative for pulmonary embolism. 2. Severe emphysema, multifocal parenchymal scarring, unchanged from 06/24/17. Frankie Duncan MD Objective Remarks GENERAL: This is a well-nourished, well-developed patient, appears chronically ill with advanced COPD SKIN: RLE dressing dry and intact CARDIOVASCULAR: Regular rate and rhythm RESPIRATORY: Clear to auscultation. Breath sounds equal bilaterally. No wheezes , rales, or rhonchi. GASTROINTESTINAL: Abdomen soft, non-tender, nondistended. Normal active bowel sounds MUSCULOSKELETAL: Extremities without clubbing, cyanosis, or edema. NEURO: Alert & Oriented x4 to person, place, time, situation. Moves all ext x4 A/P Problem List: (1) COPD exacerbation ICD Codes: J44.1 - Chronic obstructive pulmonary disease with (acute) exacerbation Status: Acute Plan: COPD acute exacerbation with bronchitis - Duo nebs every 4 hours and when necessary - Continue patient's home Symbicort and Combivent - Pt started on Solu-Medrol 40 mg IV twice a day at admission - Chest x-ray (07/25/17) --> Hyperinflation characteristic of a reported history of COPD. Possible nodular in the right upper lobe may be associated with the anterior second rib. There this is more conspicuous on the current exam. CT could be performed for further characteristic of clinically warranted. CT is suggested in 6 months as a conservative follow up, to be checked by PCP. - CT angiogram (07/25/17) --> Negative for pulmonary embolism. Severe emphysema and multifocal parenchymal scarring, unchanged from 06/24/2017 - Solu-Medrol increased to 60mg Q6H on 07/27 -> 08/03 will start prednisone 30 mg PO daily - cont current treatment for now and reevaluate - start scheduled Xanax 0.25mg po BID - Pt is a full code - Appreciate consult from Pulmonary Medicine, pt known to Dr. Villa. Right upper extremity edema - right upper extremity US negative for upper extremity DVT - monitor for s/s of cellulitis - Trial of gentle alva wrap up the bilateral UE to see if that may help with some of the swelling. - Pt wants to hold off on any diuretics. RLE nonhealing wound - Recent admission from June 13, 2017 to July 17, 2017 for large, necrotic open wound right lower extremity x 2 months. - Pt underwent surgical debridement with wound vac placement on 06/15/[address] Clark - Pt underwent multiple vac changes under anesthesia on 06/17/17, 06/19, 06/21, 06/23, 06/26 - Pt was very painful with bedside wound VAC change 07/07 despite PO Dilaudid - Case d/w General Surgery, Dr. Knight (07/07). Dressing changed to wet-to -dry and pt has been tolerating bedside dressing changes - CTA with runoff (07/08) Moderate to severe atherosclerotic disease of aorta without aneurysm. Blood flow in both lower extremities is maintained with good perfusion appreciated to the distal legs bilaterally. No high-grade stenosis or occlusion is visualized. The nonvascular structures visualized demonstrate no acute finding. - RLE daily dressing changes to wet-to-dry, per previous wound care orders (): Cleanse wound to RLE with normal saline and apply oil emulsion gauze ( adaptic) to wound bed and cover with ABD pads , secure with rolled gauze and tape. Cleanse buttock area with skin protectant wipes. Please apply antifungal cream mixed 50 / 50 with Calazime barrier cream BID and PRN and leave open to air. - Appreciate wound care nurse re-evaluation of pts wounds and they report continued improvement and continue on current recommendations. - Cont. daily dressing changes - Pain control PRN with Ultram Rash - rash improving - Unlikely to be infectious - Skin is very dry and flaking over entire body. Orders given to bathe the pt daily and apply moisturizing lotion to entire body. Tachycardia - Outpt 2D echo (04/03/17) --> Mild concentric LVH, Estimated EF 50%, Grade 1 diastolic dysfunction, Moderate mitral valve regurg, Mild tricuspid valve regurg, Normal estimated PA pressure, 32.7mmHg - Telemetry with noted sinus tachycardia - EKG in the ED noted sinus tachycardia - repeat EKG (06/23) --> sinus tachycardia, 109, with occasional PVC - Continue Ultram PRN. - Lexiscan (07/02) --> reviewed with Radiology. EF 61%, subtle inferior/ basilar wall reversible defect - echocardiogram (07/04) --> EF 60-65% - metoprolol 25mg BID and HR has been controlled Hyperglycemia - Pt likely with steroid induced hyperglycemia with her prolonged steroid use - Hgb A1C is 8.6% - Increased Levemir decreased to 12 units Q12H -> monitor closely as steroids decrease - Low NovoLog SSI, may need to be increased from low to medium dose SSI if BS continue to run high - Accu checks ACHS Assessment and Plan Patient examined. Assessment and plan formulated with Radha Bansal PA-C. I agree with the above. Radha Bansal Aug 02, 2017 16:44 Kin Parsons DO Aug 03, 2017 17:10
[2017-08-02] MEDS: ALPRAZolam 0.25 MG TAB PO PRN (16:52)
[2017-08-02 20:00] VITALS: BP 139/87; PULSE 21; RESP 21; TEMP 96; O2SAT 94; O2SAT 98
--- NOTE | 2017-08-02 20:05 | HHI.PR ---
Subjective Remarks Patient remains on 2L oxygen with good sats. Afebrile. Feels better Wheezing improved comfortable at BS " I had rough few hrs, better now" Objective Vital Signs Vital Signs Date Time Temp Pulse Resp B/P (MAP) Pulse Ox O2 Delivery O2 Flow Rate FiO2 08/02/17 20:00 98 Nasal Cannula 2.00 08/02/17 16:00 97.7 82 18 131/82 (98) 98 08/02/17 12:00 98.0 71 17 149/77 (101) 98 08/02/17 09:01 Nasal Cannula 2.00 08/02/17 08:00 97.3 83 18 121/80 (94) 99 08/02/17 07:39 97 Nasal Cannula 2.00 08/02/17 00:00 98.4 81 22 135/85 (102) 98 08/01/17 20:25 98 Nasal Cannula 2.00 I/O 08/01/17 08/01/17 08/01/17 08/02/17 08/02/17 08/02/17 07:00 15:00 23:00 07:00 15:00 23:00 Intake Total 1050 ml 240 ml 960 ml Output Total 200 ml 600 ml 450 ml Balance -200 ml 450 ml 240 ml 510 ml Intake Oral 1050 ml 240 ml 960 ml Output Urine Total 200 ml 600 ml 450 ml # Voids 3 # Bowel Movements 3 1 1 Result Diagram: 08/01/1736 08/01/17 07 Objective Remarks GENERAL: elderly female, mild sob SKIN: Warm and dry. HEAD: Normocephalic. EYES: No scleral icterus. No injection or drainage. NECK: Supple, trachea midline. No JVD or lymphadenopathy. CARDIOVASCULAR: Regular rate and rhythm without murmurs, gallops, or rubs. RESPIRATORY: Breath sounds equal bilaterally. Scattered wheezing, coarse BS GASTROINTESTINAL: Abdomen soft, non-tender, nondistended. MUSCULOSKELETAL: No cyanosis, or edema. Right leg wound Neuro: Awake and alert. A/P Assessment and Plan 1)Resp Insuff 2)COPD exac 3)Leg wound 4)Anemia 5)Pulm scarring per CT chest PLAN Continue with oxygen keep sats >92% Bronchodilators ( Duoneb, Symbicort) Continue Levaquin for COPD exac Wound care GI/DVT prophylaxis - per primary team Pred 30 mg bid Sameer Villa MD Aug 02, 2017 20:05
[2017-08-02] MEDS: ALPRAZolam 0.25 MG TAB PO SCH (20:48)
[2017-08-03] VITALS (7 sets, daily range): BP systolic 118–154; BP diastolic 73–95; PULSE 75–104; RESP 17–21; TEMP 95.7–97.2; O2SAT 94–100
[2017-08-03] MEDS: RESP: ALBUTEROL 2.5 MG/IPRATROPIUM 0.5 MG NEB (SCH) NEB ×4 (01:49→11:37)
[2017-08-03] MEDS: INSULIN ASPART SUPPLEMENTAL SCALE SQ SCH ×4 (08:00→21:26)
[2017-08-03] MEDS: METOPROLOL TARTRATE 25 MG TAB PO SCH ×2 (08:25→21:13)
[2017-08-03] MEDS: BUDESONIDE-FORMOTEROL 80/4.5 MCG INHALER INH SCH ×2 (08:25→21:14)
[2017-08-03] MEDS: ALPRAZolam 0.25 MG TAB PO SCH ×2 (08:25→21:13)
[2017-08-03] MEDS: LACTOBACILLUS ACIDOPHILUS TAB PO SCH ×3 (08:25→16:47)
[2017-08-03] MEDS: predniSONE 10 MG TAB PO SCH ×2 (08:25→21:13)
[2017-08-03] MEDS: INSULIN DETEMIR 100 UNITS/ML VIAL SQ SCH ×2 (08:27→21:25)
[2017-08-03] MEDS: LEVOFLOXACIN 500 MG TAB PO SCH (11:08)
--- NOTE | 2017-08-03 17:09 | HHI.PR ---
Subjective Remarks Less SOB from admission. Less anxious with scheduled xanax. Objective Vitals Vital Signs Date Time Temp Pulse Resp B/P (MAP) Pulse Ox O2 Delivery O2 Flow Rate FiO2 08/03/17 16:00 97.2 104 17 124/77 (93) 96 08/03/17 12:00 95.7 75 17 118/73 (88) 98 08/03/17 08:30 Nasal Cannula 3.00 08/03/17 08:00 97.1 84 18 154/95 (114) 100 08/03/17 07:56 99 Nasal Cannula 2.00 08/03/17 00:00 97.2 93 21 147/80 (102) 98 08/02/17 20:00 98 Nasal Cannula 2.00 08/02/17 20:00 96.0 21 21 139/87 (104) 94 08/02/17 19:00 2.00 Result Diagram: 08/01/17 0736 08/01/17 0736 Imaging Last Impressions Upper Extremity Ultrasound 07/24/171656 Signed Impressions: Service Date/Time: Monday, July 24, 2017 18:07 - CONCLUSION: The study is negative for upper extremity deep venous thrombosis. Frankie Duncan MD Chest X-Ray 07/24/171653 Signed Impressions: Service Date/Time: Monday, July 24, 2017 17:12 - CONCLUSION: 1. Hyperinflation characteristic of a reported history of COPD. 2. Possible nodule in the right upper lobe may be associated with the anterior second rib. This is more conspicuous on the current exam. CT could be performed for further characterization if clinically warranted Yamil Pozo MD CT Angiography 07/24/171653 Signed Impressions: Service Date/Time: Monday, July 24, 2017 21:39 - CONCLUSION: 1. The study is negative for pulmonary embolism. 2. Severe emphysema, multifocal parenchymal scarring, unchanged from 06/24/17. Frankie Duncan MD Objective Remarks GENERAL: This is a well-nourished, well-developed patient, appears chronically ill with advanced COPD SKIN: RLE dressing dry and intact CARDIOVASCULAR: Regular rate and rhythm RESPIRATORY: Clear to auscultation. Breath sounds equal bilaterally. No wheezes , rales, or rhonchi. GASTROINTESTINAL: Abdomen soft, non-tender, nondistended. Normal active bowel sounds MUSCULOSKELETAL: Extremities without clubbing, cyanosis, or edema. NEURO: Alert & Oriented x4 to person, place, time, situation. Moves all ext x4 A/P Problem List: (1) COPD exacerbation ICD Codes: J44.1 - Chronic obstructive pulmonary disease with (acute) exacerbation Status: Acute Plan: COPD acute exacerbation with bronchitis - Duo nebs every 4 hours and when necessary - Continue patient's home Symbicort and Combivent - Pt started on Solu-Medrol 40 mg IV twice a day at admission - Chest x-ray (07/25/17) --> Hyperinflation characteristic of a reported history of COPD. Possible nodular in the right upper lobe may be associated with the anterior second rib. There this is more conspicuous on the current exam. CT could be performed for further characteristic of clinically warranted. CT is suggested in 6 months as a conservative follow up, to be checked by PCP. - CT angiogram (07/25/17) --> Negative for pulmonary embolism. Severe emphysema and multifocal parenchymal scarring, unchanged from 06/24/2017 - Solu-Medrol increased to 60mg Q6H on 07/27 -> 08/03 will start prednisone 30 mg PO daily - cont current treatment for now and reevaluate - scheduled Xanax 0.25mg po BID - levaquin (07/29 - 08/04) - Pt is a full code - Appreciate consult from Pulmonary Medicine, pt known to Dr. Villa. - if pt remains stable, I will d/c back to SNF 08/04/17 Right upper extremity edema - right upper extremity US negative for upper extremity DVT - monitor for s/s of cellulitis - Trial of gentle alva wrap up the bilateral UE to see if that may help with some of the swelling. - Pt wants to hold off on any diuretics. RLE nonhealing wound - Recent admission from June 13, 2017 to July 17, 2017 for large, necrotic open wound right lower extremity x 2 months. - Pt underwent surgical debridement with wound vac placement on 06/15/[address] Clark - Pt underwent multiple vac changes under anesthesia on 06/17/17, 06/19, 06/21, 06/23, 06/26 - Pt was very painful with bedside wound VAC change 07/07 despite PO Dilaudid - Case d/w General Surgery, Dr. Knight (07/07). Dressing changed to wet-to -dry and pt has been tolerating bedside dressing changes - CTA with runoff (07/08) Moderate to severe atherosclerotic disease of aorta without aneurysm. Blood flow in both lower extremities is maintained with good perfusion appreciated to the distal legs bilaterally. No high-grade stenosis or occlusion is visualized. The nonvascular structures visualized demonstrate no acute finding. - RLE daily dressing changes to wet-to-dry, per previous wound care orders (): Cleanse wound to RLE with normal saline and apply oil emulsion gauze ( adaptic) to wound bed and cover with ABD pads , secure with rolled gauze and tape. Cleanse buttock area with skin protectant wipes. Please apply antifungal cream mixed 50 / 50 with Calazime barrier cream BID and PRN and leave open to air. - Appreciate wound care nurse re-evaluation of pts wounds and they report continued improvement and continue on current recommendations. - Cont. daily dressing changes - Pain control PRN with Ultram Rash - rash improving - Unlikely to be infectious - Skin is very dry and flaking over entire body. Orders given to bathe the pt daily and apply moisturizing lotion to entire body. Tachycardia - Outpt 2D echo (04/03/17) --> Mild concentric LVH, Estimated EF 50%, Grade 1 diastolic dysfunction, Moderate mitral valve regurg, Mild tricuspid valve regurg, Normal estimated PA pressure, 32.7mmHg - Telemetry with noted sinus tachycardia - EKG in the ED noted sinus tachycardia - repeat EKG (06/23) --> sinus tachycardia, 109, with occasional PVC - Continue Ultram PRN. - Lexiscan (07/02) --> reviewed with Radiology. EF 61%, subtle inferior/ basilar wall reversible defect - echocardiogram (07/04) --> EF 60-65% - metoprolol 25mg BID and HR has been controlled Hyperglycemia - Pt likely with steroid induced hyperglycemia with her prolonged steroid use - Hgb A1C is 8.6% - Increased Levemir decreased to 12 units Q12H -> monitor closely as steroids decrease - Low NovoLog SSI, may need to be increased from low to medium dose SSI if BS continue to run high - Accu checks Kin Tavares DO Aug 03, 2017 17:09
[2017-08-03] MEDS: ALPRAZolam 0.25 MG TAB PO PRN (17:23)
--- NOTE | 2017-08-03 19:15 | HHI.PR ---
Subjective Remarks Patient remains on 2L oxygen with good sats. Afebrile. Feels better Wheezing improved comfortable at BS Xanx helps Objective Vital Signs Vital Signs Date Time Temp Pulse Resp B/P (MAP) Pulse Ox O2 Delivery O2 Flow Rate FiO2 08/03/17 16:00 97.2 104 17 124/77 (93) 96 08/03/17 12:00 95.7 75 17 118/73 (88) 98 08/03/17 08:30 Nasal Cannula 3.00 08/03/17 08:00 97.1 84 18 154/95 (114) 100 08/03/17 07:56 99 Nasal Cannula 2.00 08/03/17 00:00 97.2 93 21 147/80 (102) 98 08/02/17 20:00 98 Nasal Cannula 2.00 08/02/17 20:00 96.0 21 21 139/87 (104) 94 I/O 08/02/17 08/02/17 08/02/17 08/03/17 08/03/17 08/03/17 07:00 15:00 23:00 07:00 15:00 23:00 Intake Total 240 ml 960 ml 240 ml 900 ml Output Total 450 ml Balance 240 ml 510 ml 240 ml 900 ml Intake Oral 240 ml 960 ml 240 ml 900 ml Output Urine Total 450 ml # Voids 3 5 5 # Bowel Movements 1 1 0 0 Result Diagram: 08/01/1736 08/01/17 0736 Objective Remarks GENERAL: elderly female, mild sob SKIN: Warm and dry. HEAD: Normocephalic. EYES: No scleral icterus. No injection or drainage. NECK: Supple, trachea midline. No JVD or lymphadenopathy. CARDIOVASCULAR: Regular rate and rhythm without murmurs, gallops, or rubs. RESPIRATORY: Breath sounds equal bilaterally. Scattered wheezing, coarse BS GASTROINTESTINAL: Abdomen soft, non-tender, nondistended. MUSCULOSKELETAL: No cyanosis, or edema. Right leg wound Neuro: Awake and alert. A/P Assessment and Plan 1)Resp Insuff 2)COPD exac 3)Leg wound 4)Anemia 5)Pulm scarring per CT chest PLAN Continue with oxygen keep sats >92% Bronchodilators ( Duoneb, Symbicort) Continue Levaquin for COPD exac Wound care GI/DVT prophylaxis - per primary team Pred 30 mg bid Wean off 02 Sameer Villa MD Aug 03, 2017 19:15
[2017-08-04] VITALS (8 sets, daily range): BP systolic 128–162; BP diastolic 77–97; PULSE 61–105; RESP 17–19; TEMP 96.7–98.5; O2SAT 96–100
[2017-08-04] MEDS: RESP: ALBUTEROL 2.5 MG/IPRATROPIUM 0.5 MG NEB (PRN) NEB ×2 (00:01→08:23)
--- NOTE | 2017-08-04 08:59 | HHI.PR ---
Subjective Remarks Patient remains on 2L oxygen with good sats. Afebrile. Feels better Has mild wheezing, " I just had my treatment" comfortable Objective Vital Signs Vital Signs Date Time Temp Pulse Resp B/P (MAP) Pulse Ox O2 Delivery O2 Flow Rate FiO2 08/04/17 08:24 98 Nasal Cannula 2.00 08/04/17 08:00 97.9 72 17 140/79 (99) 97 08/04/17 05:00 97.3 61 17 132/86 (101) 98 08/04/17 00:00 97.2 97 17 162/97 (118) 96 08/03/17 21:00 94 Nasal Cannula 2.00 08/03/17 20:00 96.2 94 17 127/75 (92) 94 08/03/17 19:34 96 Nasal Cannula 3.00 08/03/17 16:00 97.2 104 17 124/77 (93) 96 08/03/17 12:00 95.7 75 17 118/73 (88) 98 I/O 08/03/17 08/03/17 08/03/17 08/04/17 08/04/17 08/04/17 07:00 15:00 23:00 07:00 15:00 23:00 Intake Total 240 ml 900 ml 240 ml Balance 240 ml 900 ml 240 ml Intake Oral 240 ml 900 ml 240 ml # Voids 5 5 2 # Bowel Movements 0 0 Result Diagram: 08/01/1773508/01/17735 Objective Remarks GENERAL: elderly female, mild sob SKIN: Warm and dry. HEAD: Normocephalic. EYES: No scleral icterus. No injection or drainage. NECK: Supple, trachea midline. No JVD or lymphadenopathy. CARDIOVASCULAR: Regular rate and rhythm without murmurs, gallops, or rubs. RESPIRATORY: Breath sounds equal bilaterally. Scattered wheezing, coarse BS GASTROINTESTINAL: Abdomen soft, non-tender, nondistended. MUSCULOSKELETAL: No cyanosis, or edema. Right leg wound Neuro: Awake and alert. A/P Assessment and Plan 1)Resp Insuff 2)COPD exac 3)Leg wound 4)Anemia 5)Pulm scarring per CT chest PLAN Continue with oxygen keep sats >92% Bronchodilators ( Duoneb, Symbicort) Continue Levaquin for COPD exac Wound care GI/DVT prophylaxis - per primary team Pred 30 mg bid Wean off 02 Educated how to use Symbicort properly Sameer Villa MD Aug 04, 2017 08:59
[2017-08-04] MEDS ORDERED: Albuterol-Ipratropium Neb NEB (09:20)
[2017-08-04] MEDS ORDERED: PRED10 PO (09:20)
[2017-08-04] MEDS ORDERED: IPRASOL INH (09:21)
[2017-08-04] MEDS ORDERED: PROT40TA PO (09:22)
[2017-08-04] MEDS ORDERED: NOVOLOGP2 SQ (09:25)
[2017-08-04] MEDS ORDERED: LEVEMIR SQ (09:26)
--- NOTE | 2017-08-04 09:30 | HHI.DS ---
Discharge Summary Admission Date Jul 26, 2017 at 13:33 Discharge Date: Aug 05, 2017 Admitting Diagnosis COPD exacerbation with bronchitis, hypoxia (1) COPD exacerbation Diagnosis: Principal ICD Codes: J44.1 - Chronic obstructive pulmonary disease with (acute) exacerbation Status: Acute Consultants Dr. Villa, Pulmonology Dr. Drew, Palliative care Procedures none Brief History This is a 66-year-old female with PMH of COPD half-way tobacco use, obstruction and questionable diabetes and breast cancer. Patient was recently hospitalized from June 13, 2017 to July 17, 2017 for lower extremity wound. Patient underwent multiple debridement with wound VAC placement. Patient was unable to tolerate bedside without changes and was discharged to nursing home facility. Twice 2015 on wet-to-dry dressing changes. Patient presents to the emergency department yesterday with complaints of right upper extremity swelling and worsening shortness of breath for the past 2-3 days. Patient does have severe COPD and is on chronic daily steroid use prednisone 10 mg per day. CBC/BMP: 08/01/17 0736 08/01/17 0736 Imaging Last Impressions Upper Extremity Ultrasound 07/24/171656 Signed Impressions: Service Date/Time: Monday, July 24, 2017 18:07 - CONCLUSION: The study is negative for upper extremity deep venous thrombosis. Frankie Duncan MD Chest X-Ray 07/24/179 Signed Impressions: Service Date/Time: Monday, July 24, 2017 17:12 - CONCLUSION: 1. Hyperinflation characteristic of a reported history of COPD. 2. Possible nodule in the right upper lobe may be associated with the anterior second rib. This is more conspicuous on the current exam. CT could be performed for further characterization if clinically warranted Yamil Pozo MD CT Angiography 07/24/172 Signed Impressions: Service Date/Time: Monday, July 24, 2017 21:39 - CONCLUSION: 1. The study is negative for pulmonary embolism. 2. Severe emphysema, multifocal parenchymal scarring, unchanged from 06/24/17. Frankie Duncan MD PE at Discharge GENERAL: This is a well-nourished, well-developed patient, appears chronically ill with advanced COPD SKIN: RLE dressing dry and intact CARDIOVASCULAR: Regular rate and rhythm RESPIRATORY: Clear to auscultation. Breath sounds equal bilaterally. No wheezes , rales, or rhonchi. GASTROINTESTINAL: Abdomen soft, non-tender, nondistended. Normal active bowel sounds MUSCULOSKELETAL: Extremities without clubbing, cyanosis, or edema. NEURO: Alert & Oriented x4 to person, place, time, situation. Moves all ext x4 Hospital Course COPD acute exacerbation with bronchitis - Duo nebs every 4 hours and when necessary - Continue patient's home Symbicort and Combivent - Pt started on Solu-Medrol 40 mg IV twice a day at admission - Chest x-ray (07/25/17) --> Hyperinflation characteristic of a reported history of COPD. Possible nodular in the right upper lobe may be associated with the anterior second rib. There this is more conspicuous on the current exam. CT could be performed for further characteristic of clinically warranted. CT is suggested in 6 months as a conservative follow up, to be checked by PCP. - CT angiogram (07/25/17) --> Negative for pulmonary embolism. Severe emphysema and multifocal parenchymal scarring, unchanged from 06/24/2017 - Solu-Medrol increased to 60mg Q6H on 07/27 -> 08/03 will start prednisone 30 mg PO daily - cont current treatment for now and reevaluate - scheduled Xanax 0.25mg po BID - levaquin (07/29 - 08/04) - Pt is a full code - Appreciate consult from Pulmonary Medicine, pt known to Dr. Villa. Right upper extremity edema - right upper extremity US negative for upper extremity DVT - monitor for s/s of cellulitis - Trial of gentle alva wrap up the bilateral UE to see if that may help with some of the swelling. - Pt wants to hold off on any diuretics. RLE nonhealing wound - Recent admission from June 13, 2017 to July 17, 2017 for large, necrotic open wound right lower extremity x 2 months. - Pt underwent surgical debridement with wound vac placement on 06/15/[address] Clark - Pt underwent multiple vac changes under anesthesia on 06/17/17, 06/19, 06/21, 06/23, 06/26 - Pt was very painful with bedside wound VAC change 07/07 despite PO Dilaudid - Case d/w General Surgery, Dr. Knight (07/07). Dressing changed to wet-to -dry and pt has been tolerating bedside dressing changes - CTA with runoff (07/08) Moderate to severe atherosclerotic disease of aorta without aneurysm. Blood flow in both lower extremities is maintained with good perfusion appreciated to the distal legs bilaterally. No high-grade stenosis or occlusion is visualized. The nonvascular structures visualized demonstrate no acute finding. - RLE daily dressing changes to wet-to-dry, per previous wound care orders (): Cleanse wound to RLE with normal saline and apply oil emulsion gauze ( adaptic) to wound bed and cover with ABD pads , secure with rolled gauze and tape. Cleanse buttock area with skin protectant wipes. Please apply antifungal cream mixed 50 / 50 with Calazime barrier cream BID and PRN and leave open to air. - Appreciate wound care nurse re-evaluation of pts wounds and they report continued improvement and continue on current recommendations. - Cont. daily dressing changes - Pain control PRN with Ultram Rash - rash improving - Unlikely to be infectious - Skin is very dry and flaking over entire body. Orders given to bathe the pt daily and apply moisturizing lotion to entire body. Tachycardia - Outpt 2D echo (04/03/17) --> Mild concentric LVH, Estimated EF 50%, Grade 1 diastolic dysfunction, Moderate mitral valve regurg, Mild tricuspid valve regurg, Normal estimated PA pressure, 32.7mmHg - Telemetry with noted sinus tachycardia - EKG in the ED noted sinus tachycardia - repeat EKG (06/23) --> sinus tachycardia, 109, with occasional PVC - Continue Ultram PRN. - Lexiscan (07/02) --> reviewed with Radiology. EF 61%, subtle inferior/ basilar wall reversible defect - echocardiogram (07/04) --> EF 60-65% - metoprolol 25mg BID and HR has been controlled Hyperglycemia - Pt likely with steroid induced hyperglycemia with her prolonged steroid use - Hgb A1C is 8.6% - Increased Levemir decreased to 5 units Q12H -> monitor closely as steroids decrease - Low NovoLog SSI, may need to be increased from low to medium dose SSI if BS continue to run high - Accu checks ACHS Pt Condition on Discharge: Stable Discharge Disposition: Discharge to SNF Discharge Instructions DIET: Follow Instructions for: Diabetic Diet Activities you can perform: Regular-No Restrictions Follow up Referrals: PCP Follow-up - [address] Monzon Pulmonology - 2 Weeks with Sameer Villa [facility] - 2 Weeks with [facility] wound care New Medications: Insulin Aspart Inj (Novolog Inj) 1,000 Unit/10 Ml Vial 1-9 UNITS SQ ACHS for Blood Sugar Management, #10 ML 0 Refills Max dose at bedtime:( )units; sugars less than 70,(0)units; sugars 150-199,(1) unit; sugars 200-249,(3) units; sugars 250-299,(5) units; sugars 300-349,(7) units; sugars greater than 349,(9) units Ipratropium-Albuterol Neb (Duoneb) 0.5-2.5 Mg/3 Ml Neb 1 NEBULE INH Q6HR NEB for Breathing Treatment, #120 NEBULE 0 Refills Pantoprazole (Protonix) 40 Mg Tab 40 MG PO DAILY for Reflux, #30 TAB 0 Refills Prednisone (Prednisone) 10 Mg Tab 10 MG PO DIRECTED for steroid taper, #65 TAB 0 Refills Take 30 mg by mouth twice a day for 5 days, then take 20 mg by mouth twice a day for 5 days, then take 10 mg by mouth twice a day for 5 days, then take 10 mg by mouth once a day for 5 days, then follow up with pulmonology for further management Alprazolam (Xanax) 0.25 Mg Tab 0.25 MG PO TID for Anxiety and/or Insomnia, #30 TAB 1 Refill Alprazolam (Xanax) 0.25 Mg Tab 0.25 MG PO Q8H PRN for anxiety, #30 TAB 0 Refills Insulin Detemir Inj (Levemir Inj) 1,000 unit/ 10 ML Vial 5 UNITS SQ Q12HR for elevated blood sugar for 14 Days, INJECTION 0 Refills Do not mix with any other Insulin. [Albuterol-Ipratropium Neb] () 1 AMPULE NEBU 1 AMPULE NEB Q2HR NEB PRN for SHORTNESS OF BREATH for 30 Days, EACH 0 Refills Continued Medications: Budesonide-Formoterol Inh (Symbicort Inh) 80-4.5 Mcg/Act Aero 2 PUFF INH Q12HR for Asthma Management, #1 INHALER 0 Refills Metoprolol Tartrate (Metoprolol Tartrate) 25 Mg Tab 25 MG PO Q12HR for heart rate, #60 TAB 0 Refills Tramadol (Ultram) 50 Mg Tab 50 MG PO Q6H PRN for PAIN, #30 TAB 0 Refills (This prescription has been renewed ) [Albuterol-Ipratropium Neb] () 1 AMPULE NEBU 1 AMPULE NEB Q6HR WHILE AWAKE NEB for copd for 30 Days, NEBULE Discontinued Medications: Ipratropium-Albuterol Inh (Combivent Respimat Inh) 20-100 Intermediate/Act Aero 1 PUFF INH QID for Asthma Management, #1 INHALER 0 Refills Lactobacillus Acidophilus (Acidophilus/l-Sporogenes) 35 Million Cell-25 Million Cell Tab 1 TAB PO TID for loose stool for 14 Days, TAB Prednisone (Prednisone) 5 Mg Tab 5 MG PO DAILY for steroid, #14 TAB 0 Refills Additional Information RLE daily dressing changes to wet-to-dry: Cleanse wound to RLE with normal saline and apply oil emulsion gauze (adaptic) to wound bed and cover with ABD pads , secure with rolled gauze and tape. Cleanse buttock area with skin protectant wipes. Please apply antifungal cream mixed 50 / 50 with Calazime barrier cream BID and PRN and leave open to air. Patient examined. Assessment and plan formulated with Radha Bansal PA-C. I agree with the above. Radha Bansal Aug 04, 2017 09:29 Kin Parsons DO Aug 06, 2017 01:05
--- NOTE | 2017-08-04 10:09 | HHI.DCPOC ---
Discharge Care Plan Diagnosis: (1) COPD (chronic obstructive pulmonary disease) (2) COPD exacerbation (3) Open leg wound (4) Anxiety (5) Steroid-induced diabetes Goals to Promote Your Health * To prevent worsening of your condition and complications * To maintain your health at the optimal level Directions to Meet Your Goals Take your medications as prescribed Follow your dietary instruction Follow activity as directed Keep your appointments as scheduled Take your immunizations and boosters as scheduled If your symptoms worsen call your PCP, if no PCP go to Urgent Care Center or Emergency Room Smoking is Dangerous to Your Health. Avoid second hand smoke Call the 24-hour hour crisis hotline for domestic abuse at Radha Bansal Aug 04, 2017 10:09 Kin Parsons DO Aug 06, 2017 01:06
[2017-08-04] MEDS: METOPROLOL TARTRATE 25 MG TAB PO SCH ×2 (10:16→20:12)
[2017-08-04] MEDS: ALPRAZolam 0.25 MG TAB PO SCH ×2 (10:16→18:48)
[2017-08-04] MEDS: predniSONE 10 MG TAB PO SCH ×2 (10:16→20:12)
[2017-08-04] MEDS: BUDESONIDE-FORMOTEROL 80/4.5 MCG INHALER INH SCH ×2 (10:17→20:15)
[2017-08-04] MEDS: LACTOBACILLUS ACIDOPHILUS TAB PO SCH ×3 (10:29→18:48)
[2017-08-04] MEDS: INSULIN DETEMIR 100 UNITS/ML VIAL SQ SCH ×2 (10:29→20:21)
[2017-08-04] MEDS: LEVOFLOXACIN 500 MG TAB PO SCH (10:29)
[2017-08-04] MEDS: INSULIN ASPART SUPPLEMENTAL SCALE SQ SCH ×4 (10:30→20:22)
[2017-08-04] MEDS: RESP: ALBUTEROL 2.5 MG/IPRATROPIUM 0.5 MG NEB (SCH) NEB ×2 (11:58→19:29)
[2017-08-04] MEDS: PANTOPRAZOLE SOD 40 MG DELAYED RELEASE TAB PO SCH (14:39)
[2017-08-04] MEDS ORDERED: TRAM50 PO (16:01)
[2017-08-04] MEDS ORDERED: ALPR.25 PO ×3 (16:01→16:08)
[2017-08-04] MEDS: ALPRAZolam 0.25 MG TAB PO PRN (16:16)
--- NOTE | 2017-08-04 16:19 | HHI.PR ---
Subjective Remarks Patient has increased anxiety regarding DC from the hospital and reports more SOB today Objective Vitals Vital Signs Date Time Temp Pulse Resp B/P (MAP) Pulse Ox O2 Delivery O2 Flow Rate FiO2 08/04/17 12:00 98.5 105 19 138/97 (111) 96 08/04/17 08:24 98 Nasal Cannula 2.00 08/04/17 08:00 97.9 72 17 140/79 (99) 97 08/04/17 05:00 97.3 61 17 132/86 (101) 98 08/04/17 00:00 97.2 97 17 162/97 (118) 96 08/03/17 21:00 94 Nasal Cannula 2.00 08/03/17 20:00 96.2 94 17 127/75 (92) 94 08/03/17 19:34 96 Nasal Cannula 3.00 Result Diagram: 08/01/17 0736 08/01/17 0736 Imaging Last Impressions Upper Extremity Ultrasound 07/24/171656 Signed Impressions: Service Date/Time: Monday, July 24, 2017 18:07 - CONCLUSION: The study is negative for upper extremity deep venous thrombosis. Frankie Duncan MD Chest X-Ray 07/24/171653 Signed Impressions: Service Date/Time: Monday, July 24, 2017 17:12 - CONCLUSION: 1. Hyperinflation characteristic of a reported history of COPD. 2. Possible nodule in the right upper lobe may be associated with the anterior second rib. This is more conspicuous on the current exam. CT could be performed for further characterization if clinically warranted Yamil Pozo MD CT Angiography 07/24/171653 Signed Impressions: Service Date/Time: Monday, July 24, 2017 21:39 - CONCLUSION: 1. The study is negative for pulmonary embolism. 2. Severe emphysema, multifocal parenchymal scarring, unchanged from 06/24/17. Frankie Duncan MD Objective Remarks GENERAL: This is a well-nourished, well-developed patient, appears chronically ill with advanced COPD SKIN: RLE dressing dry and intact CARDIOVASCULAR: Regular rate and rhythm RESPIRATORY: Clear to auscultation. Breath sounds equal bilaterally. No wheezes , rales, or rhonchi. GASTROINTESTINAL: Abdomen soft, non-tender, nondistended. Normal active bowel sounds MUSCULOSKELETAL: Extremities without clubbing, cyanosis, or edema. NEURO: Alert & Oriented x4 to person, place, time, situation. Moves all ext x4 Procedures none A/P Problem List: (1) COPD exacerbation ICD Codes: J44.1 - Chronic obstructive pulmonary disease with (acute) exacerbation Status: Acute Plan: COPD acute exacerbation with bronchitis - Duo nebs every 4 hours and when necessary - Continue patient's home Symbicort and Combivent - Pt started on Solu-Medrol 40 mg IV twice a day at admission - Chest x-ray (07/25/17) --> Hyperinflation characteristic of a reported history of COPD. Possible nodular in the right upper lobe may be associated with the anterior second rib. There this is more conspicuous on the current exam. CT could be performed for further characteristic of clinically warranted. CT is suggested in 6 months as a conservative follow up, to be checked by PCP. - CT angiogram (07/25/17) --> Negative for pulmonary embolism. Severe emphysema and multifocal parenchymal scarring, unchanged from 06/24/2017 - Solu-Medrol increased to 60mg Q6H on 07/27 -> 08/03 will start prednisone 30 mg PO daily - cont current treatment for now and reevaluate - scheduled Xanax 0.25mg po BID - levaquin (07/29 - 08/04) - Pt is a full code - Appreciate consult from Pulmonary Medicine, pt known to Dr. Villa. - Patient reports SOB today, feel as though there is an anxiety component. - will monitor patient for on e additional night - if pt remains stable, I will d/c back to SNF 08/05/17 Right upper extremity edema - right upper extremity US negative for upper extremity DVT - monitor for s/s of cellulitis - Trial of gentle alva wrap up the bilateral UE to see if that may help with some of the swelling. - Pt wants to hold off on any diuretics. RLE nonhealing wound - Recent admission from June 13, 2017 to July 17, 2017 for large, necrotic open wound right lower extremity x 2 months. - Pt underwent surgical debridement with wound vac placement on 06/15/[address] Clark - Pt underwent multiple vac changes under anesthesia on 06/17/17, 06/19, 06/21, 06/23, 06/26 - Pt was very painful with bedside wound VAC change 07/07 despite PO Dilaudid - Case d/w General Surgery, Dr. Knight (07/07). Dressing changed to wet-to -dry and pt has been tolerating bedside dressing changes - CTA with runoff (07/08) Moderate to severe atherosclerotic disease of aorta without aneurysm. Blood flow in both lower extremities is maintained with good perfusion appreciated to the distal legs bilaterally. No high-grade stenosis or occlusion is visualized. The nonvascular structures visualized demonstrate no acute finding. - RLE daily dressing changes to wet-to-dry, per previous wound care orders (): Cleanse wound to RLE with normal saline and apply oil emulsion gauze ( adaptic) to wound bed and cover with ABD pads , secure with rolled gauze and tape. Cleanse buttock area with skin protectant wipes. Please apply antifungal cream mixed 50 / 50 with Calazime barrier cream BID and PRN and leave open to air. - Appreciate wound care nurse re-evaluation of pts wounds and they report continued improvement and continue on current recommendations. - Cont. daily dressing changes - Pain control PRN with Ultram Rash - rash improving - Unlikely to be infectious - Skin is very dry and flaking over entire body. Orders given to bathe the pt daily and apply moisturizing lotion to entire body. Tachycardia - Outpt 2D echo (04/03/17) --> Mild concentric LVH, Estimated EF 50%, Grade 1 diastolic dysfunction, Moderate mitral valve regurg, Mild tricuspid valve regurg, Normal estimated PA pressure, 32.7mmHg - Telemetry with noted sinus tachycardia - EKG in the ED noted sinus tachycardia - repeat EKG (06/23) --> sinus tachycardia, 109, with occasional PVC - Continue Ultram PRN. - Lexiscan (07/02) --> reviewed with Radiology. EF 61%, subtle inferior/ basilar wall reversible defect - echocardiogram (07/04) --> EF 60-65% - metoprolol 25mg BID and HR has been controlled Hyperglycemia - Pt likely with steroid induced hyperglycemia with her prolonged steroid use - Hgb A1C is 8.6% - Increased Levemir decreased to 12 units Q12H -> monitor closely as steroids decrease - Low NovoLog SSI, may need to be increased from low to medium dose SSI if BS continue to run high - Accu checks ACHS Assessment and Plan Patient examined. Assessment and plan formulated with Radha Bansal PA-C. I agree with the above. Radha Bansal Aug 04, 2017 16:19 Kin Parsons DO Aug 06, 2017 01:05
[2017-08-05] VITALS: BP 124/73; PULSE 78; RESP 17; TEMP 96.2; O2SAT 97
[2017-08-05] MEDS: RESP: ALBUTEROL 2.5 MG/IPRATROPIUM 0.5 MG NEB (SCH) NEB ×2 (07:44→12:43)
[2017-08-05 07:46] VITALS: O2SAT 95
[2017-08-05 08:00] VITALS: BP 120/69; PULSE 91; RESP 17; TEMP 97.4; O2SAT 99
[2017-08-05] MEDS: INSULIN ASPART SUPPLEMENTAL SCALE SQ SCH ×2 (08:00→12:38)
[2017-08-05] MEDS: METOPROLOL TARTRATE 25 MG TAB PO SCH (09:38)
[2017-08-05] MEDS: predniSONE 10 MG TAB PO SCH (09:38)
[2017-08-05] MEDS: BUDESONIDE-FORMOTEROL 80/4.5 MCG INHALER INH SCH (09:38)
[2017-08-05] MEDS: PANTOPRAZOLE SOD 40 MG DELAYED RELEASE TAB PO SCH (09:38)
[2017-08-05] MEDS: ALPRAZolam 0.25 MG TAB PO SCH ×2 (09:38→13:16)
[2017-08-05] MEDS: LACTOBACILLUS ACIDOPHILUS TAB PO SCH ×2 (09:38→13:17)
[2017-08-05] MEDS: INSULIN DETEMIR 100 UNITS/ML VIAL SQ SCH (09:39)
[2017-08-05 12:00] VITALS: BP 147/86; PULSE 109; RESP 21; TEMP 97.4; O2SAT 94
== END 2017-08-05 14:04 | DRG 192 ==
LOC: NEDAMB 13:53 → NEDA 23:06 → NEDH 07-25 05:59 → NEPFCDU 07-25 14:26 → OBSVTOIN 07-26 13:33 → N07A 07-28 17:52
PROVIDERS: ADMIT Hospitalist; ATTEND Hospitalist
DX: J44.1 Chronic obstructive pulmonary disease with (acute) exacerbation (principal); I48.91 Unspecified atrial fibrillation; E88.09 Other disorders of plasma-protein metabolism, not elsewhere classified; I08.1 Rheumatic disorders of both mitral and tricuspid valves; E09.65 Drug or chemical induced diabetes mellitus with hyperglycemia; T65.811A Toxic effect of latex, accidental (unintentional), initial encounter; L23.89 Allergic contact dermatitis due to other agents; R60.1 Generalized edema; R09.02 Hypoxemia; I70.0 Atherosclerosis of aorta; R00.0 Tachycardia, unspecified; T38.0X5A Adverse effect of glucocorticoids and synthetic analogues, initial encounter; S81.801A Unspecified open wound, right lower leg, initial encounter; D64.9 Anemia, unspecified; F17.210 Nicotine dependence, cigarettes, uncomplicated; F41.9 Anxiety disorder, unspecified; Z85.3 Personal history of malignant neoplasm of breast; Z88.2 Allergy status to sulfonamides; Z88.5 Allergy status to narcotic agent; Z92.21 Personal history of antineoplastic chemotherapy; Z92.3 Personal history of irradiation
CPT/HCPCS: 71045; 71275; 80048; 80053; 81001; 82948; 83605; 83735; 83880; 84484; 85007; 85025; 85027; 85610; 85730; 87040; 87804; 93005; 93970; 94640; 94664; 96361; 96374; 96376; G0378; G8987-GP; G8988-GP; J1815; J2920; J2930; J7040; J7512; Q9967

== ENCOUNTER 2017-08-23 10:06 | Inpatient (IN) | payer MEDICARE ==
[~2017-08-23] VITALS: Ht 162.6 cm; Wt 71.3 kg
[~2017-08-23 10:06] MED LIST changes: +ALPR.25 PO; -IPRAAER INH; +IPRASOL INH; -LACT PO; +LEVEMIR SQ; +NOVOLOGP2 SQ; +PRED10 PO; -PRED5TAB PO; +PROT40TA PO
[2017-08-23 10:11] VITALS: BP 116/74; PULSE 108; RESP 24; TEMP 99.1; O2SAT 98
[2017-08-23 10:22] VITALS: RESP 24; O2SAT 99
--- NOTE | 2017-08-23 10:25 | PD ---
HPI Chief Complaint: Respiratory Symptoms Time Seen by Provider: 10:18 Travel History International Travel<30 days: No Contact w/Intl Traveler<30days: No Traveled to known affect area: No History of Present Illness HPI Patient comes in from a alf, where she has had cough and shortness of breath over the past 3 days, today she had a 101 low-grade fever. She was given Tylenol and p.o. prednisone 20 mg prior to transport by EMS. Patient states that she has had a productive cough, yellowish sputum, although she has a history of COPD she states that she does not use oxygen at home. Her primary care physician is, her outside rigger is Dr. ANAND. Patient states that she feels worse with any type of activity. No alleviating factors. Patient denies any associated factors such as rash, runny nose, sore throat, nausea, vomiting, diarrhea, abdominal pain, back pain, or flank pain. Allergies to codeine, morphine, Bactrim Past medical history significant for atrial fibrillation, COPD, asthma, bowel obstruction resection, right breast lumpectomy, appendectomy, tubal ligation, diabetes, kidney stones, chemotherapy, radiation, caffeine use and tobacco use PFSH Past Medical History Hx Anticoagulant Therapy: Yes Asthma: Yes Atrial Fibrillation: Yes Autoimmune Disease: No Blood Disorders: No Anxiety: No Depression: No Heart Rhythm Problems: Yes (AFIB) Cancer: No Cardiovascular Problems: Yes High Cholesterol: No Chemotherapy: Yes (1993) Chest Pain: No Congestive Heart Failure: No COPD: Yes Coronary Artery Disease: No Diabetes: Yes Diminished Hearing: No Endocrine: No Genitourinary: No Immune Disorder: No Kidney Stones: Yes Musculoskeletal: No Neurologic: No Psychiatric: No Reproductive: No Respiratory: Yes Radiation Therapy: Yes Menopausal: Yes : 3 Para: 2 Miscarriage: 1 Tubal Ligation: Yes (1977) Past Surgical History Abdominal Surgery: Yes (BOWEL OBSTRUCTION-RESECTION R/T ADHESIONS/SCAR TISSUE) Appendectomy: Yes Gynecologic Surgery: Yes (RIGHT BREAST LUMPECTOMY 1995 ) Oral Surgery: Yes (TONSILLECTOMY ) Social History Alcohol Use: No Tobacco Use: Yes (5 per day) Substance Use: No Allergies-Medications (Allergen,Severity, Reaction): Coded Allergies: codeine (Verified Allergy, Severe, HIVES, 08/23/17) morphine (Verified Allergy, Severe, Anaphylaxis, 08/23/17) sulfamethoxazole (Verified Allergy, Severe, HIVES, 08/23/17) trimethoprim (Verified Allergy, Severe, HIVES, 08/23/17) Reported Meds & Prescriptions Reported Meds & Active Scripts Active Xanax (Alprazolam) 0.25 Mg Tab 0.25 Mg PO Q8H PRN Xanax (Alprazolam) 0.25 Mg Tab 0.25 Mg PO TID Protonix (Pantoprazole Sodium) 40 Mg Tab 40 Mg PO DAILY Duoneb (Ipratropium-Albuterol Neb) 0.5-2.5 Mg/3 Ml Neb 1 Nebule INH Q6HR NEB Metoprolol Tartrate 25 Mg Tab 25 Mg PO Q12HR Reported Novolog Inj (Insulin Aspart) 1,000 Unit/10 Ml Vial 1-9 Units SQ ACHS Sliding scale as follows:150-199=1 unit,200-249=3 units,250-299=5 units,300-349=7 units,over 349=9 units Tramadol (Tramadol HCl) 50 Mg Tab 50 Mg PO Q6H PRN Duoneb (Ipratropium-Albuterol Neb) 0.5-2.5 Mg/3 Ml Neb 1 Nebule INH Q2HR PRN Ascorbic Acid 500 Mg Tab 500 Mg PO BID Prednisone 10 Mg Tab 10 Mg PO DAILY 5 Days Stop date:08/27/17 Zinc Sulfate 220 Mg (50 Mg Zinc) Cap 220 Mg PO DAILY 14 Days Stop date:08/23/2017 Multiple Vitamin 1 Tab 1 Tab PO DAILY Symbicort Inh (Budesonide/Formoterol Fumarate) 80-4.5 Mcg/Act Aero 2 Puff INH Q12HR Review of Systems General / Constitutional: No: Fever Eyes: No: Visual changes HENT: No: Headaches Cardiovascular: No: Chest Pain or Discomfort Respiratory: Positive: Cough, Shortness of Breath, Wheezing Gastrointestinal: No: Abdominal Pain Genitourinary: No: Dysuria Musculoskeletal: No: Pain Skin: No Rash Neurologic: No: Weakness Psychiatric: No: Depression Endocrine: No: Polydipsia Hematologic/Lymphatic: No: Easy Bruising Physical Exam Narrative GENERAL: SKIN: Warm and dry. HEAD: Atraumatic. Normocephalic. EYES: Pupils equal and round. No scleral icterus. No injection or drainage. ENT: No nasal bleeding or discharge. Mucous membranes pink and moist. NECK: Trachea midline. No JVD. CARDIOVASCULAR: Mildly tachycardic with regular Rhythm. RESPIRATORY: No accessory muscle use. Tripoding, 2 word dyspnea, tachypneic, wheezing bilaterally, rhonchi left greater than right GASTROINTESTINAL: Abdomen soft, non-tender, nondistended. Hepatic and splenic margins not palpable. MUSCULOSKELETAL: Extremities without clubbing, cyanosis, or edema. No obvious deformities. NEUROLOGICAL: Awake and alert. No obvious cranial nerve deficits. Motor grossly within normal limits. Five out of 5 muscle strength in the arms and legs. Normal speech. PSYCHIATRIC: Appropriate mood and affect; insight and judgment normal. Data Data Last Documented VS Vital Signs Date Time Temp Pulse Resp B/P (MAP) Pulse Ox O2 Delivery O2 Flow Rate FiO2 08/23/17 12:00 98.1 96 22 107/69 (82) 99 Nasal Cannula 3.00 Orders Orders Complete Blood Count With Diff (08/23/17 10:18) Comprehensive Metabolic Panel (08/23/17 10:18) B-Type Natriuretic Peptide (08/23/17 10:18) Act Partial Throm Time (Ptt) (08/23/17 10:18) Prothrombin Time / Inr (Pt) (08/23/17 10:18) Ckmb (Isoenzyme) Profile (08/23/17 10:18) Troponin I (08/23/17 10:18) Urinalysis - C+S If Indicated (08/23/17 10:18) Influenzae A/B Antigen (08/23/17 10:18) Blood Culture (08/23/17 10:18) Iv Access Insert/Monitor (08/23/17 10:18) Ecg Monitoring (08/23/17 10:18) Oximetry (08/23/17 10:18) Oxygen Administration (08/23/17 10:18) Chest, Single Ap (08/23/17 10:18) Sodium Chloride 0.9% Flush (Ns Flush) (08/23/17 10:30) Methylprednisolone So Succ Inj (Solumedr (08/23/17 10:30) Albuterol Neb (Albuterol Neb) (08/23/17 10:30) Magnesium Sulfate 1 Gm Premix (Magnesium (08/23/17 10:30) Lactic Acid Sepsis Protocol (08/23/17 10:18) Sputum Culture And Gram Stain (08/23/17 10:18) Pneumococcal Urinary Antigen (08/23/17 10:18) Legionella Urinary Antigen (08/23/17 10:18) Electrocardiogram (08/23/17 10:23) Ceftriaxone Inj (Rocephin Inj) (08/23/17 12:00) Azithromycin Inj (Zithromax Inj) (08/23/17 12:00) Labs Laboratory Tests Test 08/23/17 10:25 08/23/17 10:35 White Blood Count 8.2 TH/MM3 Red Blood Count 3.21 MIL/MM3 Hemoglobin 9.5 GM/DL Hematocrit 28.3 % Mean Corpuscular Volume 88.0 FL Mean Corpuscular Hemoglobin 29.5 PG Mean Corpuscular Hemoglobin Concent 33.5 % Red Cell Distribution Width 19.5 % Platelet Count 206 TH/MM3 Mean Platelet Volume 6.9 FL Neutrophils (%) (Auto) 79.9 % Lymphocytes (%) (Auto) 12.3 % Monocytes (%) (Auto) 6.8 % Eosinophils (%) (Auto) 0.5 % Basophils (%) (Auto) 0.5 % Neutrophils # (Auto) 6.5 TH/MM3 Lymphocytes # (Auto) 1.0 TH/MM3 Monocytes # (Auto) 0.6 TH/MM3 Eosinophils # (Auto) 0.0 TH/MM3 Basophils # (Auto) 0.0 TH/MM3 CBC Comment AUTO DIFF Differential Total Cells Counted 100 Neutrophils % (Manual) 60 % Band Neutrophils % 20 % Lymphocytes % 11 % Monocytes % 7 % Neutrophils # (Manual) 6.7 TH/MM3 Metamyelocytes 1 % Myelocytes 1 % Differential Comment FINAL DIFF MANUAL Toxic Granulation 1+ Platelet Estimate NORMAL Platelet Morphology Comment NORMAL Ovalocytes 1+ Prothrombin Time 10.7 SEC Prothromb Time International Ratio 1.1 RATIO Activated Partial Thromboplast Time 24.0 SEC Blood Urea Nitrogen 20 MG/DL Creatinine 0.82 MG/DL Random Glucose 165 MG/DL Total Protein 6.4 GM/DL Albumin 2.6 GM/DL Calcium Level 8.5 MG/DL Alkaline Phosphatase 91 U/L Aspartate Amino Transf (AST/SGOT) 17 U/L Alanine Aminotransferase (ALT/SGPT) 27 U/L Total Bilirubin 0.5 MG/DL Sodium Level 136 MEQ/L Potassium Level 4.3 MEQ/L Chloride Level 100 MEQ/L Carbon Dioxide Level 29.6 MEQ/L Anion Gap 6 MEQ/L Estimat Glomerular Filtration Rate 70 ML/MIN Total Creatine Kinase 18 U/L Troponin I 0.04 NG/ML B-Type Natriuretic Peptide 127 PG/ML Lactic Acid Level 0.9 mmol/L MDM Medical Decision Making Medical Screen Exam Complete: Yes Emergency Medical Condition: Yes Medical Record Reviewed: Yes Interpretation(s) EKG shows sinus tachycardia 120 bpm, normal intervals, baseline motion artifact , PAC noted, some LVH pattern noted as well. But no evidence of any STEMI pattern. Differential Diagnosis COPD exacerbation versus pneumonia versus pleural effusion versus pulmonary edema Narrative Course CBC shows mild anemia of 9.5/28.3, no leukocytosis, no left shift, normal platelet count, however there is a bandemia of 20%. Coagulation profile is within normal limits Electrolytes are all within normal limits with the exception of random glucose of 165, lactic acid is 0.9, normal kidney liver and pancreatic functions. Beta natruretic peptide is only 127, albumin is low at 2.6, and the first set of troponin is negative Flu test is negative Upon my review chest x-ray reveals a haziness on the left lower lobe, will initiate antibiotics and start treatment for possible pneumonia until the formal x-ray is read. Diagnosis Primary Impression: COPD (chronic obstructive pulmonary disease) Qualified Codes: J44.1 - Chronic obstructive pulmonary disease with (acute) exacerbation Additional Impression: Left lower lobe pneumonia Qualified Codes: J18.1 - Lobar pneumonia, unspecified organism Eliel Shaffer MD Aug 23, 2017 10:25
[2017-08-23] MEDS: RESP: ALBUTEROL 2.5 MG/3 ML NEB (SCH) INH ×2 (10:29→10:30)
[2017-08-23] MEDS ORDERED: MAGNESIUM SULFATE 1 GM PREMIX 100 ML IV ONE (10:30)
[2017-08-23] MEDS ORDERED: methylPREDNISolone SOD SUCC 125 MG/2 ML VIAL IV PUSH ONE (10:30)
[2017-08-23] MEDS: SODIUM CHLORIDE 0.9% FLUSH 10 ML FLUSH IVF PRN (10:34)
[2017-08-23 10:44] VITALS: BP 106/64; PULSE 115; RESP 20; O2SAT 100
[2017-08-23 10:51] LABS: AUTOMATED NEUTROPHIL # 6.5 TH/MM3 (1.8-7.7); BASOPHIL % 0.5 % (0.0-2.0); EOSINOPHIL % 0.5 % (0.0-4.0); HEMATOCRIT 28.3 % (35.0-46.0); HEMOGLOBIN 9.5 GM/DL (11.6-15.3); LYMPH % 12.3 % (9.0-44.0); MEAN CORPUSCULAR HEMOGLOBIN 29.5 PG (27.0-34.0); MEAN CORPUSCULAR HGB CONC 33.5 % (32.0-36.0); MEAN PLATELET VOLUME 6.9 FL (7.0-11.0); MONO % 6.8 % (0.0-8.0); MONOCYTE # 0.6 TH/MM3 (0-0.9); NEUT % 79.9 % (16.0-70.0); PLATELET COUNT 206 TH/MM3 (150-450); RED BLOOD COUNT 3.21 MIL/MM3 (4.00-5.30); RED CELL DISTRIBUTION WIDTH 19.5 % (11.6-17.2); WHITE BLOOD COUNT 8.2 TH/MM3 (4.0-11.0)
[2017-08-23 11:00] LABS: INTERNATIONAL NORMALIZED RATIO 1.1 RATIO; PROTHROMBIN TIME - PATIENT 10.7 SEC (9.8-11.6)
[2017-08-23 11:05] LABS: ALBUMIN 2.6 GM/DL (3.4-5.0); ALT (GPT) 27 U/L (10-53); AST (GOT) 17 U/L (15-37); BICARBONATE 29.6 MEQ/L (21.0-32.0); BLOOD UREA NITROGEN 20 MG/DL (7-18); CALCIUM 8.5 MG/DL (8.5-10.1); CHLORIDE 100 MEQ/L (98-107); CREATININE 0.82 MG/DL (0.50-1.00); GLOMERULAR FILTRATION RATE 70 ML/MIN (>89); GLUCOSE,RANDOM 165 MG/DL (74-106); SODIUM (NA) 136 MEQ/L (136-145)
[2017-08-23 11:09] LABS: ALKALINE PHOSPHATASE 91 U/L (45-117); TOTAL BILIRUBIN ADULT 0.5 MG/DL (0.2-1.0); TOTAL PROTEIN 6.4 GM/DL (6.4-8.2); TROPONIN I 0.04 NG/ML (0.02-0.05)
[2017-08-23] MEDS ORDERED: IPRASOL INH (11:32)
[2017-08-23] MEDS ORDERED: NOVOLOGP2 SQ (11:32)
[2017-08-23] MEDS ORDERED: PRED10 PO (11:32)
[2017-08-23] MEDS ORDERED: ASCO500T PO (11:32)
[2017-08-23] MEDS ORDERED: ZINC220C3 PO (11:32)
[2017-08-23] MEDS ORDERED: MULTTAB67 PO (11:32)
[2017-08-23] MEDS ORDERED: TRAM50TA PO (11:32)
[2017-08-23 11:33] LABS: BANDS 20 % (0-6); LYMPHOCYTES 11 % (9-44); METAMYELOCYTES 1 % (0-1); MONOCYTES 7 % (0-8); MYELOCYTES 1 % (0-0); NEUTROPHIL # MANUAL DIFF 6.7 TH/MM3 (1.8-7.7); POLYS (SEG NEUTROPHILS) 60 % (16-70)
[2017-08-23 11:34] LABS: OVALOCYTES 1+ (NORMAL); TOXIC GRANULATION 1+ (NORMAL)
--- NOTE | 2017-08-23 11:53 | RADRPT ---
EXAM DATE/TIME: 08/23/2017 11:30 [facility] COMPARISON: CT PULMONARY ANGIOGRAM, July 24, 2017, 21:39. CHEST SINGLE AP, July 24, 2017, 17:12. INDICATIONS : Short of breath. MEDICAL HISTORY : Cardiovascular disease. Chronic obstructive pulmonary disease. SURGICAL HISTORY : Tubal ligation. ENCOUNTER: Initial ACUITY: 1 day PAIN SCORE: 0/10 LOCATION: Bilateral chest FINDINGS: A single view of the chest demonstrates the lungs to be symmetrically aerated without evidence of mas s, infiltrate or effusion. Focal areas of opacity/scarring in the right upper lung is obscured by a cardiac lead and cannot be assessed. The cardiomediastinal contours are unremarkable. Osseous struc tures are intact. CONCLUSION: No definite infiltrates seen. No evidence of pneumothorax. Frankie Duncan MD on August 23, 2017 at 11:49 Board Certified Radiologist. This report was verified electronically.
[2017-08-23 12:00] VITALS: BP 107/69; PULSE 96; RESP 22; TEMP 98.1; O2SAT 99
[2017-08-23] MEDS ORDERED: cefTRIAXone INJ 1,000 MG in SODIUM CHLORIDE 0.9% INJ 100 ML IV ONE (12:00)
[2017-08-23] MEDS ORDERED: AZITHROMYCIN INJ 500 MG in SODIUM CHLOR 0.9% 250 ML INJ 250 ML IV ONE (12:00)
--- NOTE | 2017-08-23 12:59 | EKG ---
Date Performed: 08/23/2017 Time Performed: 10:23:21 PTAGE: 66 years EKG: SINUS TACHYCARDIA WITH OCCASIONAL SUPRAVENTRICULAR PREMATURE COMPLEXES ABNORMAL RHYTHM ECG NO PREVIOUS TRACING DOCTOR: Wayne Moess Interpretating Date/Time 08/23/2017 12:58:37
[2017-08-23] MEDS: RESP: ALBUTEROL 2.5 MG/IPRATROPIUM 0.5 MG NEB (SCH) NEB ×2 (16:00→20:46)
[2017-08-23] MEDS ORDERED: traMADol HCL 50 MG TAB PO PRN (16:15)
[2017-08-23 16:41] LABS: BILIRUBIN, URINE NEG (NEG); BLOOD, URINE NEG (NEG); GLUCOSE,URINE 70 mg/dL (NEG); KETONE, URINE 10 mg/dL (NEG); MUCUS URINE FEW /lpf (OCC); NITRITE,URINE NEG (NEG); SQUAMOUS EPITHELIAL CELL URINE 1 /hpf (0-5); URINE COLOR YELLOW (YELLW/STRAW); URINE LEUKOCYTE ESTERASE NEG (NEG)
--- NOTE | 2017-08-23 16:47 | HHI.HP ---
HPI Service [facility] Hospitalists Primary Care Physician Dr. Monzon Admission Diagnosis COPD EXACERBATION, POSS PNA Chief Complaint: Cough, SOB Travel History International Travel<30 Days: No Contact w/Intl Traveler <30 Da: No Traveled to Known Affected Are: No History of Present Illness Mrs. Gould is a pleasant 66 y/o WF well known to our service. She has COPD with hx of usp tobacco use, steroid induced hyperglycemia, hx of breast cancer and has had two prolonged admission this year related to a LE wound and her COPD exacerbation. Patient was initially hospitalized from June 13, 2017 to July 17, 2017 for right lower extremity wound and underwent multiple surgical debridement with wound VAC placement but was ultimately able to tolerate bedside wound vac changes and discharged to rehab. She was readmitted from July 26, 2017 to August 05, 2017 for COPD exacerbation and acute bronchitis. Pt was treated with Solu-Medrol, Duonebs, and Levaquin. Pt had clinical improvement and was able to be tapered off the Prednisone at rehab but remained on 2L of supplemental O2. She states that her roommate at the rehab started coughing 5 days ago. The pt developed a cough yesterday and was started back on oral Prednisone and Azithromycin. She developed a fever this morning to 101 at rehab and increased SOB and was brought back to the ED for further evaluation. In the ER her WBC count was 8.2 and CXR was negative for infiltrates. She was given IV Solu-Medrol, Duonebs, Azithromycin and Rocephin. Pt continues to have wheezing. She has been unable to bring up any sputum. Review of Systems Constitutional: COMPLAINS OF: Fever, DENIES: Chills Eyes: DENIES: Vision loss Ears, nose, mouth, throat: DENIES: Hearing loss Respiratory: COMPLAINS OF: Cough, Wheezing, Shortness of breath Cardiovascular: DENIES: Chest pain, Lower Extremity Edema, Claudication Gastrointestinal: DENIES: Abdominal pain, Nausea, Vomiting Genitourinary: DENIES: Hematuria Musculoskeletal: DENIES: Joint pain, Back pain Integumentary: DENIES: Rash Neurologic: DENIES: Headache Psychiatric: DENIES: Confusion Past Family Social History Past Medical History COPD, asthma Long-term tobacco use History of bowel obstruction Hyperglycemia, likely steroid induced History of breast cancer chronic nonhealing wound RLE Past Surgical History Right breast lumpectomy with subsequent radiation therapy 1995 Partial colon resection due to obstruction Pt underwent surgical debridement with wound vac placement on 06/15/[address] Clark - Pt underwent a vac change in OR on 06/17/17, 06/19, 06/21, 06/23, 06/26 - Pt has wound vac change at bedside on 06/30/17, 07/04/17 Reported Medications Xanax (Alprazolam) 0.25 Mg Tab 0.25 Mg PO Q8H PRN Xanax (Alprazolam) 0.25 Mg Tab 0.25 Mg PO TID Protonix (Pantoprazole Sodium) 40 Mg Tab 40 Mg PO DAILY Duoneb (Ipratropium-Albuterol Neb) 0.5-2.5 Mg/3 Ml Neb 1 Nebule INH Q6HR NEB Metoprolol Tartrate 25 Mg Tab 25 Mg PO Q12HR Novolog Inj (Insulin Aspart) 1,000 Unit/10 Ml Vial 1-9 Units SQ ACHS Sliding scale as follows:150-199=1 unit,200-249=3 units,250-299=5 units,300-349=7 units,over 349=9 units Tramadol (Tramadol HCl) 50 Mg Tab 50 Mg PO Q6H PRN Duoneb (Ipratropium-Albuterol Neb) 0.5-2.5 Mg/3 Ml Neb 1 Nebule INH Q2HR PRN Ascorbic Acid 500 Mg Tab 500 Mg PO BID Prednisone 10 Mg Tab 10 Mg PO DAILY 5 Days Stop date:08/27/17 Zinc Sulfate 220 Mg (50 Mg Zinc) Cap 220 Mg PO DAILY 14 Days Stop date:08/23/2017 Multiple Vitamin 1 Tab 1 Tab PO DAILY Symbicort Inh (Budesonide/Formoterol Fumarate) 80-4.5 Mcg/Act Aero 2 Puff INH Q12HR Allergies: Coded Allergies: codeine (Verified Allergy, Severe, HIVES, 08/23/17) morphine (Verified Allergy, Severe, Anaphylaxis, 08/23/17) sulfamethoxazole (Verified Allergy, Severe, HIVES, 08/23/17) trimethoprim (Verified Allergy, Severe, HIVES, 08/23/17) Family History Father of coronary artery disease Mother at an old age but was a "hypochondriac." Social History She currently smokes 5-6 cigarettes per day but has smoked up to one pack per day in the past. She has smoked cigarettes for over 45 years. 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 Physical Exam Vital Signs Vital Signs Date Time Temp Pulse Resp B/P (MAP) Pulse Ox O2 Delivery O2 Flow Rate FiO2 08/23/17 12:00 98.1 96 22 107/69 (82) 99 Nasal Cannula 3.00 08/23/17 10:44 115 20 106/64 (78) 100 Nasal Cannula 3.00 08/23/17 10:22 99 Nasal Cannula 3.00 08/23/17 10:22 24 99 Nasal Cannula 3.00 08/23/17 10:12 118 24 99 Nasal Cannula 3.00 08/23/17 10:11 99.1 108 24 116/74 (88) 98 Physical Exam GENERAL: This is a well-nourished, well-developed patient, in no apparent distress. HEENT: Atraumatic. Normocephalic. No temporal or scalp tenderness. No scleral icterus. Airway patent. NECK: Trachea midline, supple, nontender. CARDIO: Regular. RESP: Wheezing throughout ABD:+BS, soft, non-tender, nondistended. EXT: RLE bandages are c/d/i NEURO: Awake and alert. Motor and sensory grossly within normal limits. Normal speech. Laboratory Laboratory Tests Test 08/23/17 10:25 08/23/17 10:35 White Blood Count 8.2 Red Blood Count 3.21 Hemoglobin 9.5 Hematocrit 28.3 Mean Corpuscular Volume 88.0 Mean Corpuscular Hemoglobin 29.5 Mean Corpuscular Hemoglobin Concent 33.5 Red Cell Distribution Width 19.5 Platelet Count 206 Mean Platelet Volume 6.9 Neutrophils (%) (Auto) 79.9 Lymphocytes (%) (Auto) 12.3 Monocytes (%) (Auto) 6.8 Eosinophils (%) (Auto) 0.5 Basophils (%) (Auto) 0.5 Neutrophils # (Auto) 6.5 Lymphocytes # (Auto) 1.0 Monocytes # (Auto) 0.6 Eosinophils # (Auto) 0.0 Basophils # (Auto) 0.0 CBC Comment AUTO DIFF Differential Total Cells Counted 100 Neutrophils % (Manual) 60 Band Neutrophils % 20 Lymphocytes % 11 Monocytes % 7 Neutrophils # (Manual) 6.7 Metamyelocytes 1 Myelocytes 1 Differential Comment FINAL DIFF MANUAL Toxic Granulation 1+ Platelet Estimate NORMAL Platelet Morphology Comment NORMAL Ovalocytes 1+ Prothrombin Time 10.7 Prothromb Time International Ratio 1.1 Activated Partial Thromboplast Time 24.0 Blood Urea Nitrogen 20 Creatinine 0.82 Random Glucose 165 Total Protein 6.4 Albumin 2.6 Calcium Level 8.5 Alkaline Phosphatase 91 Aspartate Amino Transf (AST/SGOT) 17 Alanine Aminotransferase (ALT/SGPT) 27 Total Bilirubin 0.5 Sodium Level 136 Potassium Level 4.3 Chloride Level 100 Carbon Dioxide Level 29.6 Anion Gap 6 Estimat Glomerular Filtration Rate 70 Total Creatine Kinase 18 Troponin I 0.04 B-Type Natriuretic Peptide 127 Lactic Acid Level 0.9 Date/Time Source Procedure Growth Status 08/23/17 10:35 Blood Peripheral Aerobic Blood Culture Pending Received 08/23/17 10:35 Blood Peripheral Anaerobic Blood Culture Pending Received 08/23/17 10:25 Nasal Washing Influenza Types A,B Antigen (INGA) - Final NEGATIVE FOR FLU A AND B ANTIGEN.... Complete Result Diagram: 08/23/17 1025 08/23/17 1025 Imaging Last Impressions Chest X-Ray 08/23/17 1018 Signed Impressions: Service Date/Time: Wednesday, August 23, 2017 11:30 - CONCLUSION: No definite infiltrates seen. No evidence of pneumothorax. MD Kevin Parrish VTE Risk Assessment Caprini VTE Risk Assessment: Mod/High Risk (score >= 2) Caprini Risk Assessment Model Point Value = 1 Point Value = 2 Point Value = 3 Point Value = 5 Age 41-60 Minor surgery BMI > 25 kg/m2 Swollen legs Varicose veins or History of unexplained or recurrent spontaneous Oral contraceptives or hormone replacement Sepsis (< 1 month) Serious lung disease, including pneumonia (< 1 month) Abnormal pulmonary function Acute myocardial infarction Congestive heart failure (< 1 month) History of inflammatory bowel disease Medical patient at bed rest Age 61-74 Arthroscopic surgery Major open surgery (> 45 min) Laparoscopic surgery (> 45 min) Malignancy Confined to bed (> 72 hours) Immobilizing plaster cast Central venous access Age >= 75 History of VTE Family history of VTE Factor V Leiden Prothrombin [id number] Lupus anticoagulant Anticardiolipin antibodies Elevated serum homocysteine Heparin-induced thrombocytopenia Other congenital or acquired thrombophilia Stroke (< 1 month) Elective arthroplasty Hip, pelvis, or leg fracture Acute spinal cord injury (< 1 month) Prophylaxis Regimen Total Risk Factor Score Risk Level Prophylaxis Regimen 0-1 Low Early ambulation 2 Moderate Order ONE of the following: *Sequential Compression Device (SCD) *Heparin 5000 units SQ BID 3-4 Higher Order ONE of the following medications: *Heparin 5000 units SQ TID *Enoxaparin/Lovenox 40 mg SQ daily (WT < 150 kg, CrCl > 30 mL/min) *Enoxaparin/Lovenox 30 mg SQ daily (WT < 150 kg, CrCl > 10-29 mL/min) *Enoxaparin/Lovenox 30 mg SQ BID (WT < 150 kg, CrCl > 30 mL/min) AND/OR *Sequential Compression Device (SCD) 5 or more Highest Order ONE of the following medications: *Heparin 5000 units SQ TID (Preferred with Epidurals) *Enoxaparin/Lovenox 40 mg SQ daily (WT < 150 kg, CrCl > 30 mL/min) *Enoxaparin/Lovenox 30 mg SQ daily (WT < 150 kg, CrCl > 10-29 mL/min) *Enoxaparin/Lovenox 30 mg SQ BID (WT < 150 kg, CrCl > 30 mL/min) AND *Sequential Compression Device (SCD) Assessment and Plan Problem List: (1) COPD (chronic obstructive pulmonary disease) ICD Codes: J44.9 - Chronic obstructive pulmonary disease, unspecified Status: Chronic Plan: COPD acute exacerbation with bronchitis - Pt is a 66 y/o female with COPD 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 - Pt presented back to the ED at [facility] from rehab on 08/23/17 with acute onset of cough, worsening SOB and fever this morning. - In the ED pt was given a dose of Solu-Medrol 125mg x one dose, DuoNebs, Azithromycin and Rocephin - CXR in the ED no definite infiltrates seen. No evidence of pneumothorax. - Cont. Duonebs every 4 hours and PRN - Continue patient's home Symbicort - Pt started on Solu-Medrol 60mg IV Q6H - Cont. Rocephin and Azithromycin IV - Cont. scheduled Xanax 0.25mg po TID and Q8H PRN - Mucinex 600mg po BID - Sputum culture ordered - Urine for legionella and pneumococcal ordered - Pt is a full code RLE wound, improving - Recent admission from June 13, 2017 to July 17, 2017 for large, necrotic open wound right lower extremity x 2 months. - Pt underwent surgical debridement with wound vac placement on 06/15/[address] Clark. Pt underwent multiple vac changes under anesthesia but was able to be progressed to bedside wet to dry dressings. - Pt has been getting dressing changes QOD - We will try to get the wound care recommendations from rehab for dressing change tomorrow. - Pain control PRN with Ultram Sinus Tachycardia - Outpt 2D echo (04/03/17) --> Mild concentric LVH, Estimated EF 50%, Grade 1 diastolic dysfunction, Moderate mitral valve regurg, Mild tricuspid valve regurg , Normal estimated PA pressure, 32.7mmHg - Lexiscan (07/02) --> reviewed with Radiology. EF 61%, subtle inferior/basilar wall reversible defect - Echocardiogram (07/04/17) --> EF 60-65% - Cont. metoprolol 25mg BID and HR has been controlled Hyperglycemia, likely steroid induced - Pt likely with steroid induced hyperglycemia with her prolonged steroid use - Hgb A1C is 8.6% (06/13/17) - NovoLog SSI, may need to be increased from low to medium dose SSI if BS continue to run high - Accu checks ACHS (2) Anxiety ICD Codes: F41.9 - Anxiety disorder, unspecified Status: Chronic (3) Open leg wound ICD Codes: S81.809A - Unspecified open wound, unspecified lower leg, initial encounter Status: Chronic (4) Hyperglycemia ICD Codes: R73.9 - Hyperglycemia, unspecified Status: Chronic (5) Tachycardia ICD Codes: R00.0 - Tachycardia, unspecified Status: Chronic Physician Certification 2 Midnight Certification Type: Admission for Inpatient Services Order for Inpatient Services The services are ordered in accordance with Medicare regulations or non- Medicare payer requirements, as applicable. In the case of services not specified as inpatient-only, they are appropriately provided as inpatient services in accordance with the 2-midnight benchmark. Estimated LOS (days): 3 3 days is the estimated time the patient will need to remain in the hospital, assuming treatment plan goals are met and no additional complications. Post-Hospital Plan: Not yet determined Problem Qualifiers (1) COPD (chronic obstructive pulmonary disease): Qualified Codes: J44.1 - Chronic obstructive pulmonary disease with (acute) exacerbation Yomaira Lemus Aug 23, 2017 16:47
[2017-08-23] MEDS: INSULIN ASPART SUPPLEMENTAL SCALE SQ SCH ×2 (17:00→21:52)
[2017-08-23 18:13] VITALS: BP 117/71; PULSE 89; RESP 20; TEMP 97.6; O2SAT 98
[2017-08-23] MEDS ORDERED: GLUCAGON 1 MG/ML VIAL OTHER PRN (18:15)
[2017-08-23] MEDS ORDERED: DEXTROSE 50% IN WATER 50 ML VIAL(D50) IV PUSH PRN (18:15)
[2017-08-23] MEDS: ALPRAZolam 0.25 MG TAB PO SCH (18:33)
[2017-08-23] MEDS: methylPREDNISolone SOD SUCC 125 MG/2 ML VIAL IV PUSH SCH (18:33)
[2017-08-23 20:28] VITALS: BP 111/72; PULSE 115; RESP 16; TEMP 97.5; O2SAT 92
[2017-08-23] MEDS: guaiFENesin E.R. 600 MG TAB PO SCH (21:42)
[2017-08-23] MEDS: METOPROLOL TARTRATE 25 MG TAB PO SCH (21:42)
[2017-08-23] MEDS: BUDESONIDE-FORMOTEROL 80/4.5 MCG INHALER INH SCH (21:42)
[2017-08-24] VITALS (10 sets, daily range): BP systolic 103–157; BP diastolic 66–104; PULSE 83–110; RESP 16–22; TEMP 97.2–98; O2SAT 95–98
[2017-08-24] MEDS: RESP: ALBUTEROL 2.5 MG/IPRATROPIUM 0.5 MG NEB (SCH) NEB ×7 (00:30→22:46)
[2017-08-24] MEDS: methylPREDNISolone SOD SUCC 125 MG/2 ML VIAL IV PUSH SCH ×4 (00:43→18:50)
[2017-08-24 07:16] LABS: AUTOMATED NEUTROPHIL # 7.2 TH/MM3 (1.8-7.7); HEMATOCRIT 28.6 % (35.0-46.0); HEMOGLOBIN 9.6 GM/DL (11.6-15.3); LYMPH % 5.2 % (9.0-44.0); LYMPHOCYTE # 0.4 TH/MM3 (1.0-4.8); MEAN CELL VOLUME 88.7 FL (80.0-100.0); MEAN CORPUSCULAR HEMOGLOBIN 29.7 PG (27.0-34.0); MEAN CORPUSCULAR HGB CONC 33.5 % (32.0-36.0); MEAN PLATELET VOLUME 6.8 FL (7.0-11.0); MONO % 4.2 % (0.0-8.0); MONOCYTE # 0.3 TH/MM3 (0-0.9); NEUT % 90.6 % (16.0-70.0); PLATELET COUNT 212 TH/MM3 (150-450); RED BLOOD COUNT 3.23 MIL/MM3 (4.00-5.30); RED CELL DISTRIBUTION WIDTH 18.9 % (11.6-17.2)
--- NOTE | 2017-08-24 07:47 | HHI.PR ---
Subjective Remarks Patient reports that she is still coughing quite a bit but is not bringing much sputum up She reports SOB when trying to talk or move around in the bed Afebrile Objective Vitals Vital Signs Date Time Temp Pulse Resp B/P (MAP) Pulse Ox O2 Delivery O2 Flow Rate FiO2 08/24/17 04:51 97.7 83 16 141/104 (116) 96 08/24/17 01:06 97.2 92 16 124/77 (93) 96 08/24/17 00:15 95 Nasal Cannula 3.00 08/23/17 20:28 97.5 115 16 111/72 (85) 92 08/23/17 18:13 97.6 89 20 117/71 (86) 98 08/23/17 17:15 08/23/17 12:00 98.1 96 22 107/69 (82) 99 Nasal Cannula 3.00 08/23/17 10:44 115 20 106/64 (78) 100 Nasal Cannula 3.00 08/23/17 10:22 99 Nasal Cannula 3.00 08/23/17 10:22 24 99 Nasal Cannula 3.00 08/23/17 10:12 118 24 99 Nasal Cannula 3.00 08/23/17 10:11 99.1 108 24 116/74 (88) 98 Result Diagram: 08/24/17 0645 08/23/17 1025 Other Results Laboratory Tests Test 08/23/17 10:25 08/23/17 10:35 08/23/17 16:00 08/24/17 06:45 White Blood Count 8.2 TH/MM3 8.0 TH/MM3 Red Blood Count 3.21 MIL/MM3 3.23 MIL/MM3 Hemoglobin 9.5 GM/DL 9.6 GM/DL Hematocrit 28.3 % 28.6 % Mean Corpuscular Volume 88.0 FL 88.7 FL Mean Corpuscular Hemoglobin 29.5 PG 29.7 PG Mean Corpuscular Hemoglobin Concent 33.5 % 33.5 % Red Cell Distribution Width 19.5 % 18.9 % Platelet Count 206 TH/MM3 212 TH/MM3 Mean Platelet Volume 6.9 FL 6.8 FL Neutrophils (%) (Auto) 79.9 % 90.6 % Lymphocytes (%) (Auto) 12.3 % 5.2 % Monocytes (%) (Auto) 6.8 % 4.2 % Eosinophils (%) (Auto) 0.5 % 0.0 % Basophils (%) (Auto) 0.5 % 0.0 % Neutrophils # (Auto) 6.5 TH/MM3 7.2 TH/MM3 Lymphocytes # (Auto) 1.0 TH/MM3 0.4 TH/MM3 Monocytes # (Auto) 0.6 TH/MM3 0.3 TH/MM3 Eosinophils # (Auto) 0.0 TH/MM3 0.0 TH/MM3 Basophils # (Auto) 0.0 TH/MM3 0.0 TH/MM3 CBC Comment AUTO DIFF DIFF FINAL Differential Total Cells Counted 100 Neutrophils % (Manual) 60 % Band Neutrophils % 20 % Lymphocytes % 11 % Monocytes % 7 % Neutrophils # (Manual) 6.7 TH/MM3 Metamyelocytes 1 % Myelocytes 1 % Differential Comment FINAL DIFF MANUAL Toxic Granulation 1+ Platelet Estimate NORMAL Platelet Morphology Comment NORMAL Ovalocytes 1+ Prothrombin Time 10.7 SEC Prothromb Time International Ratio 1.1 RATIO Activated Partial Thromboplast Time 24.0 SEC Blood Urea Nitrogen 20 MG/DL Creatinine 0.82 MG/DL Random Glucose 165 MG/DL Total Protein 6.4 GM/DL Albumin 2.6 GM/DL Calcium Level 8.5 MG/DL Alkaline Phosphatase 91 U/L Aspartate Amino Transf (AST/SGOT) 17 U/L Alanine Aminotransferase (ALT/SGPT) 27 U/L Total Bilirubin 0.5 MG/DL Sodium Level 136 MEQ/L Potassium Level 4.3 MEQ/L Chloride Level 100 MEQ/L Carbon Dioxide Level 29.6 MEQ/L Anion Gap 6 MEQ/L Estimat Glomerular Filtration Rate 70 ML/MIN Total Creatine Kinase 18 U/L Troponin I 0.04 NG/ML B-Type Natriuretic Peptide 127 PG/ML Lactic Acid Level 0.9 mmol/L Urine Color YELLOW Urine Turbidity CLEAR Urine pH 5.0 Urine Specific [place] 1.015 Urine Protein TRACE mg/dL Urine Glucose (UA) 70 mg/dL Urine Ketones 10 mg/dL Urine Occult Blood NEG Urine Nitrite NEG Urine Bilirubin NEG Urine Urobilinogen LESS THAN 2.0 MG/DL Urine Leukocyte Esterase NEG Urine RBC LESS THAN 1 /hpf Urine WBC 1 /hpf Urine Squamous Epithelial Cells 1 /hpf Urine Mucus FEW /lpf Microscopic Urinalysis Comment CULT NOT INDICATED Imaging Last Impressions Chest X-Ray 08/23/17 1018 Signed Impressions: Service Date/Time: Wednesday, August 23, 2017 11:30 - CONCLUSION: No definite infiltrates seen. No evidence of pneumothorax. Frankie Duncan MD Objective Remarks General: NAD, AAOx3 Chest: Bilateral wheezing Cardiac: Regular Abd: +BS, soft ND/NT Ext: No LE edema, bandages on RLE are c/d/i A/P Problem List: (1) COPD (chronic obstructive pulmonary disease) ICD Codes: J44.9 - Chronic obstructive pulmonary disease, unspecified Status: Chronic Plan: COPD acute exacerbation with bronchitis - Pt is a 66 y/o female with COPD with hx of correction tobacco 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 - [place] [facility] [place] with acute onset of cough, worsening SOB and fever this morning. - In the ED pt was given a dose of Solu-Medrol 125mg x one dose, DuoNebs, Azithromycin and Rocephin - CXR in the ED no definite infiltrates seen. No evidence of pneumothorax. - Cont. Duonebs Q4H and Q2H PRN - Cont. Symbicort BID - Cont. Solu-Medrol 60mg IV Q6H - Cont. Rocephin and Azithromycin IV - Cont. scheduled Xanax 0.25mg po TID and Q8H PRN - Mucinex 600mg po BID - Sputum culture ordered - Urine for legionella and pneumococcal are both negative - Pt is a full code RLE wound, improving - Recent admission from June 13, 2017 to July 17, 2017 for large, necrotic open wound right lower extremity x 2 months. - Pt underwent surgical debridement with wound vac placement on 06/15/[address] Clark. Pt underwent multiple vac changes under anesthesia but was able to be progressed to bedside wet to dry dressings. - Pt has been getting dressing changes QOD - We will try to get the wound care recommendations from rehab for dressing change today - Pain control PRN with Ultram Sinus Tachycardia - Outpt 2D echo (04/03/17) --> Mild concentric LVH, Estimated EF 50%, Grade 1 diastolic dysfunction, Moderate mitral valve regurg, Mild tricuspid valve regurg , Normal estimated PA pressure, 32.7mmHg - Lexiscan (07/02) --> reviewed with Radiology. EF 61%, subtle inferior/basilar wall reversible defect - Echocardiogram (07/04/17) --> EF 60-65% - Cont. metoprolol 25mg BID and HR has been controlled Hyperglycemia, likely steroid induced - Pt likely with steroid induced hyperglycemia with her prolonged steroid use - Hgb A1C is 8.6% (06/13/17) - NovoLog SSI, we will increase from low to medium dose SSI as BS continue to run high - Accu checks ACHS (2) Anxiety ICD Codes: F41.9 - Anxiety disorder, unspecified Status: Chronic (3) Open leg wound ICD Codes: S81.809A - Unspecified open wound, unspecified lower leg, initial encounter Status: Chronic (4) Hyperglycemia ICD Codes: R73.9 - Hyperglycemia, unspecified Status: Chronic (5) Tachycardia ICD Codes: R00.0 - Tachycardia, unspecified Status: Chronic Assessment and Plan Patient examined. Assessment and plan formulated with Yomaira Lemus PA-C. I agree with the above. copd exacerbation and acute bronchitis cont rx. not ready for d/c wound care. dressing change today. Problem Qualifiers (1) COPD (chronic obstructive pulmonary disease): Qualified Codes: J44.1 - Chronic obstructive pulmonary disease with (acute) exacerbation Yomaira Lemus Aug 24, 2017 07:47 Ellis Eason MD Aug 24, 2017 12:03
[2017-08-24 07:58] LABS: BICARBONATE 29.7 MEQ/L (21.0-32.0); CALCIUM 8.7 MG/DL (8.5-10.1); CREATININE 0.67 MG/DL (0.50-1.00); MAGNESIUM 2.3 MG/DL (1.5-2.5)
[2017-08-24] MEDS: INSULIN ASPART SUPPLEMENTAL SCALE SQ SCH ×4 (09:47→22:19)
[2017-08-24] MEDS: SODIUM CHLORIDE 0.9% FLUSH 10 ML FLUSH IVF PRN (09:48)
[2017-08-24] MEDS: BUDESONIDE-FORMOTEROL 80/4.5 MCG INHALER INH SCH ×2 (09:48→22:18)
[2017-08-24] MEDS: PANTOPRAZOLE SOD 40 MG DELAYED RELEASE TAB PO SCH (09:48)
[2017-08-24] MEDS: guaiFENesin E.R. 600 MG TAB PO SCH ×2 (09:49→22:18)
[2017-08-24] MEDS: METOPROLOL TARTRATE 25 MG TAB PO SCH ×2 (09:49→22:18)
[2017-08-24] MEDS: ALPRAZolam 0.25 MG TAB PO SCH ×3 (09:49→18:49)
[2017-08-24] MEDS: COLLAGENASE OINT 30 GM TUBE TOPICAL SCH (09:53)
[2017-08-24] MEDS: AZITHROMYCIN INJ 500 MG in SODIUM CHLOR 0.9% 250 ML INJ 250 ML IV SCH (11:21)
--- NOTE | 2017-08-24 11:55 | RADRPT ---
EXAM DATE/TIME: 08/24/2017 11:33 [facility] COMPARISON: CHEST SINGLE AP, August 23, 2017, 11:30. INDICATIONS : Cough and short of breath. MEDICAL HISTORY : Cardiovascular disease. Chronic obstructive pulmonary disease. SURGICAL HISTORY : Tubal ligation. ENCOUNTER: Subsequent ACUITY: 1 day PAIN SCORE: 0/10 LOCATION: Bilateral chest FINDINGS: A single view of the chest demonstrates the lungs to be symmetrically aerated without evidence of mas s, infiltrate or effusion. The cardiomediastinal contours are unremarkable. Osseous structures are intact. CONCLUSION: The lungs are clear. Frankie Duncan MD on August 24, 2017 at 11:52 Board Certified Radiologist. This report was verified electronically.
[2017-08-24] MEDS: cefTRIAXone INJ 1,000 MG in SODIUM CHLORIDE 0.9% INJ 100 ML IV SCH (12:40)
--- NOTE | 2017-08-24 16:20 | PD.WCN.NOT ---
Wound Consult Description: Received wound management consult for RLE from Yomaira ARVIZU Communicated with: SAY Oleary H pod and call placed to Yomaira ARVIZU for Doctor Yumi Recommendation: Please leave dressing in place for 5 days. Dressing should be changed on Monday08/29/2017. Change dressing as follows: 1.Cleanse wound to RLE with normal saline and pat dry. 2.Apply Puracol Collagen dressing just to wound bed. 3.Apply Vaseline gauze just over wound bed with collagen dressing in place please do not cover intact skin. 4.Secure dressing with ABD pads, rolled gauze and tape. Change every 5 days or as needed for saturation or dislodgement. Additional Information: Patient seen on H pod for evaluation of wound management of RLE. Removed rolled gauze and telfa dressing in place to reveal wound with 100% red tissue. wound drainage is scant and sero-sanguinous with out odor. Periwound is noted with new scar tissue, and is otherwise unremarkable. Wound measures ~16 cm x ~40cm x ~0.2cm . Wound is noted circumferentially to RLE. Cleansed wound with normal saline. Applied Puracol dressing in place to wound bed avoiding intact skin to periwound. Covered collagen dressing with Vaseline gauze avoiding intact skin to periwound. Secured dressing with ABD pad, rolled gauze and tape. Leonora Crespo [facility] Aug 24, 2017 16:20
[2017-08-25] VITALS (11 sets, daily range): BP systolic 121–165; BP diastolic 70–94; PULSE 92–115; RESP 18–24; TEMP 97.5–98.2; O2SAT 93–96
[2017-08-25] MEDS: ALPRAZolam 0.25 MG TAB PO PRN ×2 (01:12→21:28)
[2017-08-25] MEDS: methylPREDNISolone SOD SUCC 125 MG/2 ML VIAL IV PUSH SCH ×4 (01:13→17:15)
[2017-08-25] MEDS: RESP: ALBUTEROL 2.5 MG/IPRATROPIUM 0.5 MG NEB (SCH) NEB ×4 (02:59→20:04)
[2017-08-25] MEDS: RESP: ALBUTEROL 2.5 MG/IPRATROPIUM 0.5 MG NEB (PRN) NEB (05:48)
[2017-08-25] MEDS: BUDESONIDE-FORMOTEROL 80/4.5 MCG INHALER INH SCH ×2 (08:18→21:24)
[2017-08-25] MEDS: METOPROLOL TARTRATE 25 MG TAB PO SCH ×2 (08:19→21:24)
[2017-08-25] MEDS: PANTOPRAZOLE SOD 40 MG DELAYED RELEASE TAB PO SCH (08:19)
[2017-08-25] MEDS: ALPRAZolam 0.25 MG TAB PO SCH ×3 (08:20→17:15)
[2017-08-25] MEDS: guaiFENesin E.R. 600 MG TAB PO SCH ×2 (08:20→21:24)
[2017-08-25] MEDS: COLLAGENASE OINT 30 GM TUBE TOPICAL SCH (08:21)
--- NOTE | 2017-08-25 09:28 | HHI.PR ---
Subjective Remarks Pt reports that she feels worse this morning. She is still not able to bring up much of any phlegm Her O2 sats have been fluctuating between 87-90% on 3-4L of supplemental O2 She is rather anxious this morning. Objective Vitals Vital Signs Date Time Temp Pulse Resp B/P (MAP) Pulse Ox O2 Delivery O2 Flow Rate FiO2 08/25/17 08:32 98.2 115 18 135/78 (97) 96 08/25/17 07:30 96 Nasal Cannula 3.00 08/25/17 04:43 97.5 101 20 121/76 (91) 94 08/24/17 22:58 97.5 89 16 126/83 (97) 97 08/24/17 19:54 97.4 110 20 157/66 (96) 95 08/24/17 19:32 95 Nasal Cannula 3.00 08/24/17 16:20 98.0 101 22 130/77 (94) 95 08/24/17 11:51 97.4 91 20 103/75 (84) 98 Result Diagram: 08/24/17 0645 08/24/17 0645 Other Results Laboratory Tests Test 08/23/17 10:25 08/23/17 10:35 08/23/17 16:00 08/24/17 06:45 White Blood Count 8.2 TH/MM3 8.0 TH/MM3 Red Blood Count 3.21 MIL/MM3 3.23 MIL/MM3 Hemoglobin 9.5 GM/DL 9.6 GM/DL Hematocrit 28.3 % 28.6 % Mean Corpuscular Volume 88.0 FL 88.7 FL Mean Corpuscular Hemoglobin 29.5 PG 29.7 PG Mean Corpuscular Hemoglobin Concent 33.5 % 33.5 % Red Cell Distribution Width 19.5 % 18.9 % Platelet Count 206 TH/MM3 212 TH/MM3 Mean Platelet Volume 6.9 FL 6.8 FL Neutrophils (%) (Auto) 79.9 % 90.6 % Lymphocytes (%) (Auto) 12.3 % 5.2 % Monocytes (%) (Auto) 6.8 % 4.2 % Eosinophils (%) (Auto) 0.5 % 0.0 % Basophils (%) (Auto) 0.5 % 0.0 % Neutrophils # (Auto) 6.5 TH/MM3 7.2 TH/MM3 Lymphocytes # (Auto) 1.0 TH/MM3 0.4 TH/MM3 Monocytes # (Auto) 0.6 TH/MM3 0.3 TH/MM3 Eosinophils # (Auto) 0.0 TH/MM3 0.0 TH/MM3 Basophils # (Auto) 0.0 TH/MM3 0.0 TH/MM3 CBC Comment AUTO DIFF DIFF FINAL Differential Total Cells Counted 100 Neutrophils % (Manual) 60 % Band Neutrophils % 20 % Lymphocytes % 11 % Monocytes % 7 % Neutrophils # (Manual) 6.7 TH/MM3 Metamyelocytes 1 % Myelocytes 1 % Differential Comment FINAL DIFF MANUAL Toxic Granulation 1+ Platelet Estimate NORMAL Platelet Morphology Comment NORMAL Ovalocytes 1+ Prothrombin Time 10.7 SEC Prothromb Time International Ratio 1.1 RATIO Activated Partial Thromboplast Time 24.0 SEC Blood Urea Nitrogen 20 MG/DL 21 MG/DL Creatinine 0.82 MG/DL 0.67 MG/DL Random Glucose 165 MG/DL 172 MG/DL Total Protein 6.4 GM/DL Albumin 2.6 GM/DL Calcium Level 8.5 MG/DL 8.7 MG/DL Alkaline Phosphatase 91 U/L Aspartate Amino Transf (AST/SGOT) 17 U/L Alanine Aminotransferase (ALT/SGPT) 27 U/L Total Bilirubin 0.5 MG/DL Sodium Level 136 MEQ/L 140 MEQ/L Potassium Level 4.3 MEQ/L 4.2 MEQ/L Chloride Level 100 MEQ/L 102 MEQ/L Carbon Dioxide Level 29.6 MEQ/L 29.7 MEQ/L Anion Gap 6 MEQ/L 8 MEQ/L Estimat Glomerular Filtration Rate 70 ML/MIN 88 ML/MIN Total Creatine Kinase 18 U/L Troponin I 0.04 NG/ML B-Type Natriuretic Peptide 127 PG/ML Lactic Acid Level 0.9 mmol/L Urine Color YELLOW Urine Turbidity CLEAR Urine pH 5.0 Urine Specific [place] 1.015 Urine Protein TRACE mg/dL Urine Glucose (UA) 70 mg/dL Urine Ketones 10 mg/dL Urine Occult Blood NEG Urine Nitrite NEG Urine Bilirubin NEG Urine Urobilinogen LESS THAN 2.0 MG/DL Urine Leukocyte Esterase NEG Urine RBC LESS THAN 1 /hpf Urine WBC 1 /hpf Urine Squamous Epithelial Cells 1 /hpf Urine Mucus FEW /lpf Microscopic Urinalysis Comment CULT NOT INDICATED Magnesium Level 2.3 MG/DL Imaging Last Impressions Chest X-Ray 08/24/17 1121 Signed Impressions: Service Date/Time: August 11:33 - CONCLUSION: The lungs are clear. Frankie Duncan MD Last Impressions Chest X-Ray 08/23/17 1018 Signed Impressions: Service Date/Time: Wednesday, August 23, 2017 11:30 - CONCLUSION: No definite infiltrates seen. No evidence of pneumothorax. Frankie Duncan MD Objective Remarks General: NAD, AAOx3 Chest: Bilateral wheezing, some course breath sounds at the right base Cardiac: Regular Abd: +BS, soft ND/NT Ext: No LE edema, bandages on RLE are c/d/i A/P Problem List: (1) COPD (chronic obstructive pulmonary disease) ICD Codes: J44.9 - Chronic obstructive pulmonary disease, unspecified Status: Chronic Plan: COPD acute exacerbation with bronchitis and possible pneumonia - Pt is a 66 y/o female with COPD with hx of fdc tobacco 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 - Pt presented [place] [facility] [place] with acute onset of cough, worsening SOB and fever this morning. - In the ED pt was given a dose of Solu-Medrol 125mg x one dose, DuoNebs, Azithromycin and Rocephin - CXR in the ED no definite infiltrates seen. No evidence of pneumothorax. - Cont. Duonebs Q4H and Q2H PRN - Cont. Symbicort BID - Cont. Solu-Medrol 60mg IV Q6H - Cont. Rocephin and Azithromycin IV - Cont. scheduled Xanax 0.25mg po TID and Q8H PRN - Mucinex 600mg po BID - Acapella - IS - Sputum culture ordered but pt has been unable to produce a specimen sample - Urine for legionella and pneumococcal are both negative - CXR (08/24) was negative - Consider CT Chest - Pt is a full code RLE wound, improving - Recent admission from June 13, 2017 to July 17, 2017 for large, necrotic open wound right lower extremity x 2 months. - Pt underwent surgical debridement with wound vac placement on 06/15/[address] Clark. Pt underwent multiple vac changes under anesthesia but was able to be progressed to bedside wet to dry dressings. - Pt has been getting dressing changes QOD - We will try to get the wound care recommendations from rehab for dressing change today - Pain control PRN with Ultram Sinus Tachycardia - Outpt 2D echo (04/03/17) --> Mild concentric LVH, Estimated EF 50%, Grade 1 diastolic dysfunction, Moderate mitral valve regurg, Mild tricuspid valve regurg , Normal estimated PA pressure, 32.7mmHg - Lexiscan (07/02) --> reviewed with Radiology. EF 61%, subtle inferior/basilar wall reversible defect - Echocardiogram (07/04/17) --> EF 60-65% - Cont. metoprolol 25mg BID and HR has been controlled Hyperglycemia, likely steroid induced - Pt likely with steroid induced hyperglycemia with her prolonged steroid use - Hgb A1C is 8.6% (06/13/17) - NovoLog SSI, increased from low to medium dose SSI on 08/24 with improvement in BS readings - Accu checks ACHS (2) Anxiety ICD Codes: F41.9 - Anxiety disorder, unspecified Status: Chronic (3) Open leg wound ICD Codes: S81.809A - Unspecified open wound, unspecified lower leg, initial encounter Status: Chronic (4) Hyperglycemia ICD Codes: R73.9 - Hyperglycemia, unspecified Status: Chronic (5) Tachycardia ICD Codes: R00.0 - Tachycardia, unspecified Status: Chronic Assessment and Plan Patient examined. Assessment and plan formulated with Yomaira Lemus PA-C. I agree with the above. severe copd . bronchitis. worsening sob and increased labored breathing spoke with RT. start BIPAP now. consult pulmonary. Problem Qualifiers (1) COPD (chronic obstructive pulmonary disease): Qualified Codes: J44.1 - Chronic obstructive pulmonary disease with (acute) exacerbation Yomaira Lemus Aug 25, 2017 09:28 Ellis Eason MD Aug 25, 2017 13:29
[2017-08-25] MEDS: INSULIN ASPART SUPPLEMENTAL SCALE SQ SCH ×4 (10:04→21:00)
[2017-08-25] MEDS: AZITHROMYCIN INJ 500 MG in SODIUM CHLOR 0.9% 250 ML INJ 250 ML IV SCH (12:00)
[2017-08-25] MEDS: cefTRIAXone INJ 1,000 MG in SODIUM CHLORIDE 0.9% INJ 100 ML IV SCH (13:02)
--- NOTE | 2017-08-25 20:23 | MB ---
cc: Sameer Villa MD DATE: 08/25/2017 DATE OF CONSULTATION: 08/25/2017 REQUESTING PHYSICIAN: Dr. Eason. REASON FOR CONSULTATION: COPD exacerbation. HISTORY OF PRESENT ILLNESS: Ms. Gould is a 66-year-old female with very severe COPD. Her FEV1 is 20% of predicted. She has a chronic leg wound. She has multiple admissions in this hospital. She was at [facility], getting wound care, and was feeling much better, but her roommate was sick and gave her bronchitis. The patient states that she had a 103 fever over there and was sent to the hospital. In the hospital, she has been afebrile. She has cough and congestion, not able to bring up any phlegm, and has mild wheezing. LABORATORY DATA: She had a workup done in the hospital. Her chest x-ray shows no acute infiltrate. CBC showed WBC count of 8.0, hemoglobin 9.6, hematocrit 28.6, MCV 88, platelet count 212. Sodium 140, potassium 4.0, chloride 102, CO2 of 29, BUN 21, creatinine 0.67, glucose 172. Her legionella antigen is negative. Blood culture so far is negative. PAST MEDICAL HISTORY: Significant for history of very severe COPD; she is steroid dependent. Chronic leg wound, history of carcinoma of the breast, history of bowel reconstruction after bowel obstruction. MEDICATIONS: She is currently taking Rocephin 1 g a day, Zithromax 500 mg daily, Protonix 40 mg a day, Symbicort 80/4.5 two puffs twice a day, metoprolol 25 mg q. 12 hours, Solu-Medrol 60 mg q. 6 hours, Xanax 0.25 mg 3 times a day. ALLERGIES: SHE IS ALLERGIC TO CODEINE, MORPHINE, SULFA. SOCIAL HISTORY: She has history of smoking. 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 She was recently . She has 2 children. FAMILY HISTORY: She has 1 sister who committed suicide. Father with a heart attack. Mother with heart disease. REVIEW OF SYSTEMS: She has a recovering right leg wound, has been undergoing physical therapy, not able to ambulate. No DVT or pulmonary embolism. PHYSICAL EXAMINATION: GENERAL: Elderly female, anxious, mildly short of breath. VITAL SIGNS: Blood pressure 142/94, heart rate 92, respirations 18, temperature 97.5. HEENT: Unremarkable. NECK: Supple. JVP not raised. CHEST: Equal air entry bilaterally. She has forced expiration rhonchi. CARDIOVASCULAR: S1, S2 normal. ABDOMEN: Benign. EXTREMITIES: She has a healing right leg wound. IMPRESSION: 1. Chronic obstructive pulmonary disease exacerbation. 2. Bronchitis. 3. Right leg wound. 4. Chronic respiratory insufficiency. PLAN: We will continue with Abx Rocephin, Zithromax, Solu-Medrol 60 mg q. 6 hours, and wean as she tolerates .Supplemental oxygen, keep the sats between 88% and 92%. Check blood culture for further treatment. I will encourage her to use Acapella and Mucinex twice a day. Further treatment pending the course in the hospital. Thank you, Dr. Eason, for this consult. MD JOANA White/SHUBHAM , 07:56 PM , 08:22 PM MTDReginaldo
[2017-08-26] VITALS (24 sets, daily range): BP systolic 67–174; BP diastolic 48–120; PULSE 78–142; RESP 17–45; TEMP 97.2–99.7; O2SAT 89–100
[2017-08-26] MEDS: RESP: ALBUTEROL 2.5 MG/IPRATROPIUM 0.5 MG NEB (SCH) NEB ×7 (00:49→23:33)
[2017-08-26] MEDS: methylPREDNISolone SOD SUCC 125 MG/2 ML VIAL IV PUSH SCH ×5 (00:55→23:47)
[2017-08-26] MEDS: ALPRAZolam 0.25 MG TAB PO PRN (05:30)
[2017-08-26] MEDS: INSULIN ASPART SUPPLEMENTAL SCALE SQ SCH ×4 (08:00→21:23)
[2017-08-26] MEDS: ALPRAZolam 0.25 MG TAB PO SCH ×3 (09:01→17:25)
[2017-08-26] MEDS ORDERED: PROPOFOL 500 MG/50 ML INJ 50 ML ONE ×2 (09:20→11:47)
[2017-08-26] MEDS ORDERED: ETOMIDATE 40 MG/20 ML VIAL ONE (09:20)
[2017-08-26] MEDS ORDERED: ROCURONIUM INJ 50 MG/5 ML VIAL ONE (09:21)
[2017-08-26] MEDS ORDERED: PHENYLEPHRINE HCL 10 MG/ML VIAL ONE (09:42)
--- NOTE | 2017-08-26 10:02 | PD.PROCEDR ---
Procedure Note Procedure Endotracheal Intubation Diagnosis: Acute hypoxemic respiratory failure Indications: Acute hypoxemic respiratory failure Consent: Emergent but obtained by patient and Anesthesia: 2 mg midazepam, 100 mcgs fentanyl, 100 mg propofol, 50 mg rocuronium Description of the Procedure: The patient was positioned in the sniffing position. Pre-oxygenation was performed using a 100% BVM. Anesthesia was induced via rapid sequence with cricoid pressure. A Glidescope 3 used for laryngoscopy, patient noted to have multiple carious teeth and a Grade 1 view was obtained. A 7.5 cuffed endotracheal tube was inserted atraumatically through the vocal cords. No visible signs of aspiration were noted. confirmation of correct endotracheal tube placement was made by equal and bilateral breath sounds and colorimetric CO2 detection. The endotracheal tube was secured at 21 cm at the teeth. There were no immediate complications noted. The patient remained hemodynamically stable throughout the procedure. A chest x-ray has been ordered. I personally performed the procedure. Danni Gregory MD Aug 26, 2017 10:02
--- NOTE | 2017-08-26 10:03 | RADRPT ---
EXAM DATE/TIME: 08/26/2017 09:39 [facility] COMPARISON: CHEST SINGLE AP, August 24, 2017, 11:33. INDICATIONS : Short of breath. MEDICAL HISTORY : Cardiovascular disease. Chronic obstructive pulmonary disease. SURGICAL HISTORY : Tubal ligation. ENCOUNTER: Subsequent ACUITY: 1 day PAIN SCORE: Non-responsive. LOCATION: Bilateral chest FINDINGS: There has been interval placement of an endotracheal tube with the tip at the level of the clavicles. A midline tubing extending beyond the imaged portion of the film. The lungs are hyperinflated and clear. Heart size is normal. Vasculature is normal. Osseous structure s are unremarkable. CONCLUSION: Interval placement of an endotracheal tube which appears appropriately positioned. No evidence of acu te cardiopulmonary disease. Jennifer Holcomb MD on August 26, 2017 at 9:59 Board Certified Radiologist. This report was verified electronically.
--- NOTE | 2017-08-26 10:38 | HHI.PR ---
Subjective Remarks when I arrived the pt appeared in respiratory distress. says it's worse than ever before. I spoke to RT last evening and ordered bipap which was never placed on pt. Pt and are agreeable to intubation at this point. I called ICU and halicat called. Objective Vitals labored breathing oriented bilateral wheezing abd s/nt ext right leg bandaged. Vital Signs Date Time Temp Pulse Resp B/P (MAP) Pulse Ox O2 Delivery O2 Flow Rate FiO2 08/26/17 09:47 114 102/ 100 08/26/17 08:31 97 Nasal Cannula 3.00 08/26/17 04:00 97.3 91 20 158/96 (116) 99 08/26/17 03:48 87 08/26/17 00:00 97.2 95 20 160/93 (115) 99 08/25/17 23:45 98 08/25/17 20:23 102 08/25/17 20:07 93 Nasal Cannula 4.00 08/25/17 20:00 97.6 107 20 165/77 (106) 95 08/25/17 16:00 97.5 92 18 142/94 (110) 94 08/25/17 15:53 94 08/25/17 14:15 97.5 95 24 147/70 (95) 95 08/25/17 11:55 98.2 115 20 137/87 (104) 96 Result Diagram: 08/24/17 0645 08/24/17 0645 Imaging Last Impressions Chest X-Ray 08/24/17 1121 Signed Impressions: Service Date/Time: August 11:33 - CONCLUSION: The lungs are clear. Frankie Duncan MD Last Impressions Chest X-Ray 08/23/17 1018 Signed Impressions: Service Date/Time: Wednesday, August 23, 2017 11:30 - CONCLUSION: No definite infiltrates seen. No evidence of pneumothorax. Frankie Duncan MD A/P Problem List: (1) COPD (chronic obstructive pulmonary disease) ICD Codes: J44.9 - Chronic obstructive pulmonary disease, unspecified Status: Acute Plan: COPD acute exacerbation with bronchitis and possible pneumonia - Pt is a 66 y/o female with COPD with hx of correction tobacco 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 - Pt presented back [place] [facility] [place] on 08/23/17 with acute onset of cough, worsening SOB and fever this morning. - In the ED pt was given a dose of Solu-Medrol 125mg x one dose, DuoNebs, Azithromycin and Rocephin - CXR in the ED no definite infiltrates seen. No evidence of pneumothorax. - Cont. Duonebs Q4H and Q2H PRN - Cont. Symbicort BID - Cont. Solu-Medrol 60mg IV Q6H - Cont. Rocephin and Azithromycin IV - Cont. scheduled Xanax 0.25mg po TID and Q8H PRN - Mucinex 600mg po BID - Acapella - IS - Sputum culture ordered but pt has been unable to produce a specimen sample - Urine for legionella and pneumococcal are both negative - CXR (08/24) was negative - Pt is a full code 08/26: Pt was in severe respiratory distress. I ordered bipap last night and spoke directly to RT about it. The order was not carried out. I asked for bipap again. Before it can be placed she worsens and I called ICU and then Halicat for emergent intubation. Pt and want full code at this time. ICU team here and intubation in progress. RLE wound, improving - Recent admission from June 13, 2017 to July 17, 2017 for large, necrotic open wound right lower extremity x 2 months. - Pt underwent surgical debridement with wound vac placement on 06/15/[address] Clark. Pt underwent multiple vac changes under anesthesia but was able to be progressed to bedside wet to dry dressings. - Pt has been getting dressing changes QOD - wound care team following. - Pain control PRN with Ultram Sinus Tachycardia - Outpt 2D echo (04/03/17) --> Mild concentric LVH, Estimated EF 50%, Grade 1 diastolic dysfunction, Moderate mitral valve regurg, Mild tricuspid valve regurg , Normal estimated PA pressure, 32.7mmHg - Lexiscan (07/02) --> reviewed with Radiology. EF 61%, subtle inferior/basilar wall reversible defect - Echocardiogram (07/04/17) --> EF 60-65% - Cont. metoprolol 25mg BID and HR has been controlled Hyperglycemia, likely steroid induced - Pt likely with steroid induced hyperglycemia with her prolonged steroid use - Hgb A1C is 8.6% (06/13/17) - NovoLog SSI, increased from low to medium dose SSI on 08/24 with improvement in BS readings - Accu checks ACHS (2) Anxiety ICD Codes: F41.9 - Anxiety disorder, unspecified Status: Chronic (3) Open leg wound ICD Codes: S81.809A - Unspecified open wound, unspecified lower leg, initial encounter Status: Chronic (4) Hyperglycemia ICD Codes: R73.9 - Hyperglycemia, unspecified Status: Chronic (5) Tachycardia ICD Codes: R00.0 - Tachycardia, unspecified Status: Chronic Problem Qualifiers (1) COPD (chronic obstructive pulmonary disease): Qualified Codes: J44.1 - Chronic obstructive pulmonary disease with (acute) exacerbation Ellis Eason MD Aug 26, 2017 10:38
[2017-08-26] MEDS: METOPROLOL TARTRATE 25 MG TAB PO SCH ×2 (11:00→21:00)
[2017-08-26] MEDS: cefTRIAXone INJ 1,000 MG in SODIUM CHLORIDE 0.9% INJ 100 ML IV SCH (11:08)
[2017-08-26] MEDS: AZITHROMYCIN INJ 500 MG in SODIUM CHLOR 0.9% 250 ML INJ 250 ML IV SCH (11:11)
--- NOTE | 2017-08-26 11:13 | PD.CONS ---
HPI Service Critical Care Medicine Consult Requested By Dr. Pierce Reason for Consult Acute hypoxemic respiratory failure Primary Care Physician Unknown History of Present Illness HPI The patient was admitted on 08/23 from [facility], with complaints cough and shortness of breath over the past 3 days, and a 101 low-grade fever. The patient patient had reported at that time a productive cough, yellowish sputum. The patient's has a history of severe COPD and upon presentation to the ED ,she stated that she does not use oxygen at home. She was admitted under [facility] Dr. Vogt. This a.m., the patient was noted to have extreme respiratory distress, sinus tachycardia. The patient had received methylprednisolone a.m. dose and DuoNeb bronchodilator treatment, and BiPAP with no improvement. Halicat was initiated, upon my arrival the patient was noted to be tachypneic ,significantly tachycardic and hypertensive. Discussion with Dr. Vogt, the patient and were informed of the situation, she requested to be intubated at this time. The patient was emergently intubated uneventfully, the patient was transferred to ICU. History PFSH Past Medical History Hx Anticoagulant Therapy: Yes Asthma: Yes Atrial Fibrillation: Yes Autoimmune Disease: No Blood Disorders: No Anxiety: No Depression: No Heart Rhythm Problems: Yes (AFIB) Cancer: No Cardiovascular Problems: Yes High Cholesterol: No Chemotherapy: Yes (1993) Chest Pain: No Congestive Heart Failure: No COPD: Yes Coronary Artery Disease: No Diabetes: Yes Diminished Hearing: No Endocrine: No Genitourinary: No Immune Disorder: No Kidney Stones: Yes Musculoskeletal: No Neurologic: No Psychiatric: No Reproductive: No Respiratory: Yes Radiation Therapy: Yes Menopausal: Yes : 3 Para: 2 Miscarriage: 1 Tubal Ligation: Yes (1977) Past Surgical History Abdominal Surgery: Yes (BOWEL OBSTRUCTION-RESECTION R/T ADHESIONS/SCAR TISSUE) Appendectomy: Yes Gynecologic Surgery: Yes (RIGHT BREAST LUMPECTOMY 1995 ) Oral Surgery: Yes (TONSILLECTOMY ) Social History Alcohol Use: No Tobacco Use: Yes (5 per day) Substance Use: No Allergies-Medications Allergies-Medications (Allergen,Severity, Reaction): Coded Allergies: codeine (Verified Allergy, Severe, HIVES, 08/23/17) morphine (Verified Allergy, Severe, Anaphylaxis, 08/23/17) sulfamethoxazole (Verified Allergy, Severe, HIVES, 08/23/17) trimethoprim (Verified Allergy, Severe, HIVES, 08/23/17) Reported Meds & Prescriptions Reported Meds & Active Scripts Active Xanax (Alprazolam) 0.25 Mg Tab 0.25 Mg PO Q8H PRN Xanax (Alprazolam) 0.25 Mg Tab 0.25 Mg PO TID Protonix (Pantoprazole Sodium) 40 Mg Tab 40 Mg PO DAILY Duoneb (Ipratropium-Albuterol Neb) 0.5-2.5 Mg/3 Ml Neb 1 Nebule INH Q6HR NEB Metoprolol Tartrate 25 Mg Tab 25 Mg PO Q12HR Reported Novolog Inj (Insulin Aspart) 1,000 Unit/10 Ml Vial 1-9 Units SQ ACHS Sliding scale as follows:150-199=1 unit,200-249=3 units,250-299=5 units,300-349=7 units,over 349=9 units Tramadol (Tramadol HCl) 50 Mg Tab 50 Mg PO Q6H PRN Duoneb (Ipratropium-Albuterol Neb) 0.5-2.5 Mg/3 Ml Neb 1 Nebule INH Q2HR PRN Ascorbic Acid 500 Mg Tab 500 Mg PO BID Prednisone 10 Mg Tab 10 Mg PO DAILY 5 Days Stop date:08/27/17 Zinc Sulfate 220 Mg (50 Mg Zinc) Cap 220 Mg PO DAILY 14 Days Stop date:08/23/2017 Multiple Vitamin 1 Tab 1 Tab PO DAILY Symbicort Inh (Budesonide/Formoterol Fumarate) 80-4.5 Mcg/Act Aero 2 Puff INH Q12HR Review of Systems ROS Limitations: Clinical Condition Past Family Social History Allergies: Coded Allergies: codeine (Verified Allergy, Severe, HIVES, 08/23/17) morphine (Verified Allergy, Severe, Anaphylaxis, 08/23/17) sulfamethoxazole (Verified Allergy, Severe, HIVES, 08/23/17) trimethoprim (Verified Allergy, Severe, HIVES, 08/23/17) Past Medical History Medical history significant for severe COPD, atrial fibrillation, tobacco use disorder, asthma, diabetes mellitus, nephrolithiasis, chronic leg wound Past Surgical History Right breast lumpectomy status post chemotherapy and radiation therapy, bilateral tubal ligation, appendectomy Reported Medications Reviewed Active Ordered Medications See MAR Family History Unable to obtain secondary to patient's clinical condition Social History The patient is , tobacco use disorder, denies illicit or alcohol use Physical Exam Vital Signs Vital Signs Date Time Temp Pulse Resp B/P (MAP) Pulse Ox O2 Delivery O2 Flow Rate FiO2 08/26/17 09:47 114 102/ 100 08/26/17 08:31 97 Nasal Cannula 3.00 08/26/17 04:00 97.3 91 20 158/96 (116) 99 08/26/17 03:48 87 08/26/17 00:00 97.2 95 20 160/93 (115) 99 08/25/17 23:45 98 08/25/17 20:23 102 08/25/17 20:07 93 Nasal Cannula 4.00 08/25/17 20:00 97.6 107 20 165/77 (106) 95 08/25/17 16:00 97.5 92 18 142/94 (110) 94 08/25/17 15:53 94 08/25/17 14:15 97.5 95 24 147/70 (95) 95 08/25/17 11:55 98.2 115 20 137/87 (104) 96 Physical Exam GENERAL: This is an obese female in significant respiratory distress SKIN: Warm and dry. Ecchymotic bruising bilateral upper and lower extremity. Fungal infection noted groin and breasts. HEAD: Atraumatic. Normocephalic. EYES: Pupils equal and round. No scleral icterus. No injection or drainage. ENT: No nasal bleeding or discharge. Mucous membranes pink and moist. NECK: Trachea midline. No JVD. CARDIOVASCULAR: Tachycardic rate, regular rhythm. Telemetry sinus tach RESPIRATORY: Tachypneaic.accessory muscle use. Audible expiratory wheezing. Breath sounds equal bilaterally. GASTROINTESTINAL: Abdomen soft, non-tender, obese ,nondistended. No guarding. Bowel sounds active MUSCULOSKELETAL: Extremities without clubbing, cyanosis, or edema. No obvious deformities. NEUROLOGICAL: Awake and alert. RASS 0. No gross focal/sensory deficits. Follows commands in all 4 extremities. Laboratory Laboratory Tests Test 08/26/17 09:09 Blood Gas Puncture Site RT RADIAL Blood Gas Patient Temperature 98.6 Blood Gas HCO3 30 Blood Gas Base Excess 2.3 Blood Gas Oxygen Saturation 95 Arterial Blood pH 7.16 Arterial Blood Partial Pressure CO2 88 Arterial Blood Partial Pressure O2 113 Arterial Blood Oxygen Content 13.7 Arterial Blood Carboxyhemoglobin 1.2 Arterial Blood Methemoglobin 0.8 Blood Gas Hemoglobin 10.1 Oxygen Delivery Device Partial Rebreather Blood Gas Inspired Oxygen 80 Date/Time Source Procedure Growth Status 08/23/17 10:35 Blood Peripheral Aerobic Blood Culture - Preliminary NO GROWTH IN 2 DAYS Resulted 08/23/17 10:35 Blood Peripheral Anaerobic Blood Culture - Preliminary NO GROWTH IN 2 DAYS Resulted 08/23/17 10:25 Nasal Washing Influenza Types A,B Antigen (INGA) - Final NEGATIVE FOR FLU A AND B ANTIGEN.... Complete 08/23/17 16:00 Urine Random Urine Legionella Antigen - Final PRESUMPTIVE NEGATIVE FOR LEGIONELLA P... Complete 08/23/17 16:00 Urine Random Urine Streptococcus pneumoniae Antigen (M - Final PRESUMPTIVE NEGATIVE FOR STREPTOCOCCU... Complete Result Diagram: 08/24/17 0645 08/24/17 0645 Imaging Last Impressions Chest X-Ray 08/26/17 0000 Signed Impressions: Service Date/Time: Saturday, August 26, 2017 09:39 - CONCLUSION: Interval placement of an endotracheal tube which appears appropriately positioned. No evidence of acute cardiopulmonary disease. Jennifer Holcomb MD Septic Shock Reassessment Septic shock perfusion: reassessment completed Assessment and Plan Problem List: (1) Tachycardia ICD Code: R00.0 - Tachycardia, unspecified Status: Chronic (2) Hyperglycemia ICD Code: R73.9 - Hyperglycemia, unspecified Status: Chronic (3) Open leg wound ICD Code: S81.809A - Unspecified open wound, unspecified lower leg, initial encounter Status: Chronic (4) COPD (chronic obstructive pulmonary disease) ICD Code: J44.9 - Chronic obstructive pulmonary disease, unspecified Status: Acute (5) Acute hypercapnic respiratory failure ICD Code: J96.02 - Acute respiratory failure with hypercapnia (6) Acute hypoxemic respiratory failure ICD Code: J96.01 - Acute respiratory failure with hypoxia Assessment and Plan Assessment This is a 66 year old female with a medical history significant for COPD exacerbation tobacco use disorder, asthma, with noted severe COPD with FEV1 of predicted 20%. The patient and are requesting intubation for acute hypercapnic and hypoxemic respiratory failure. The patient emergently intubated and transferred to ICU. Plan Plan by systems: Neurologic: Neuro checks per ICU protocol Daily sedation vacation Propofol infusion to maintain ventilator synchrony Tylenol for fever and/or pain Respiratory: Acute hypoxemic and hypercapnic respiratory failure Probable pneumonia Severe COPD with FEV1 less than 20% COPD exacerbation Asthma Tobacco use disorder Maintain O2 saturation greater than 92% 08/26-emergent intubation 7.5 ETT at 21 cm at the lip. Multi-carious dentition. Noted dentition intact post intubation ABG postintubation 7.4 /545/27/3 0.4 on FiO2 1.0. Continue to wean to FiO2 of 0.30 Methylprednisolone 60 mg every 6 hours, home meds steroid dependency Pulmonology following Dr. Allen Moraes nebclyde every 6 hours scheduled every 2 hours as needed Cardiovascular: History of atrial fibrillation Obtain BNP Maintain MAP greater than 65 Telemetry sinus tach Obtain EKG Renal: History of nephrolithiasis Maintain Schmidt catheter -- Strict I/Os FEN/GI: Hypoalbuminemia Normal saline at 42cc/hr Dietary consult for tube feeds Bowel regimen Heme/ID: Probable pneumonia 08/23- Legionella and strep urine antigens negative 08/23-blood culture NGTD 08/23 influenza nasal wash negative Obtain serial lactate Obtain CBC Endocrine: Hyperglycemia of critical illness Glucose monitoring per ICU protocol, low-dose regimen -- SSI Musculoskeletal: Wound care consult for chronic leg wound Prophylaxis: GI Prophylaxis Famotidine DVT Prophylaxis -- SCDs Heparin Lines: PIV's x 2 Dispo: my billing statement This patient remains critically ill with one or more organ systems which are or may become a threat to life. I have spent in excess of 60 minutes discontinuously in the care and management of this patient. This time is exclusive of procedures, and includes, but is not limited to, evaluation of the patient, review of the medical record, discussions with family, consultants, nursing staff, or respiratory therapy, and documentation in the medical record. Code Status Full Discussed Condition With Dr. Eason, Mr. [place] , MGMT CONSULTANT at bedside Problem Qualifiers (1) COPD (chronic obstructive pulmonary disease): Qualified Codes: J44.1 - Chronic obstructive pulmonary disease with (acute) exacerbation Danni Gregory MD Aug 26, 2017 11:13
[2017-08-26] MEDS: guaiFENesin E.R. 600 MG TAB PO SCH (11:24)
[2017-08-26] MEDS: PANTOPRAZOLE SOD 40 MG DELAYED RELEASE TAB PO SCH (11:24)
[2017-08-26] MEDS ORDERED: TERBUTALINE INJ 1 MG/ML AMP SQ PRN (12:00)
[2017-08-26] MEDS ORDERED: PHENYLEPHRINE INJ 80 MG in SODIUM CHLOR 0.9% 1000 ML INJ 1,000 ML IV PRN (12:00)
[2017-08-26] MEDS: PHENYLEPHRINE INJ 80 MG in SODIUM CHLORID 0.9% 500 ML INJ 492 ML IV PRN (12:38)
[2017-08-26] MEDS: PROPOFOL 1000 MG/100 ML INJ 100 ML IV PRN ×2 (14:24→17:32)
[2017-08-26] MEDS: ENOXAPARIN SODIUM 40 MG/0.4 ML SYRINGE SQ SCH (14:27)
--- NOTE | 2017-08-26 18:00 | HHI.PR ---
Subjective Remarks 66 YOWF with COPD,Ch Leg wound, DM Has worsening of sob Intubated, Tr to ISC On Vent Sedated with Diprivan On Phenylepherine Objective Vital Signs Vital Signs Date Time Temp Pulse Resp B/P (MAP) Pulse Ox O2 Delivery O2 Flow Rate FiO2 08/26/17 16:15 100 30 08/26/17 16:00 99.7 117 26 159/98 (118) 100 08/26/17 16:00 116 08/26/17 16:00 30 08/26/17 14:00 117 08/26/17 12:38 106 122/60 08/26/17 12:35 98 30 08/26/17 12:30 118 119/82 08/26/17 12:00 116 08/26/17 12:00 97.9 112 27 119/82 (94) 100 08/26/17 12:00 30 08/26/17 11:00 117 79/41 08/26/17 10:00 140 08/26/17 09:47 114 102/ 100 08/26/17 09:42 113 102/64 (77) 100 08/26/17 09:39 139 67/48 (54) 100 08/26/17 09:36 131 133/70 (91) 98 08/26/17 09:34 142 107/77 (87) 100 08/26/17 09:30 130 32 154/115 (128) 100 08/26/17 09:05 138 45 174/120 (138) 89 08/26/17 08:31 97 Nasal Cannula 3.00 08/26/17 04:00 97.3 91 20 158/96 (116) 99 08/26/17 03:48 87 08/26/17 00:00 97.2 95 20 160/93 (115) 99 08/25/17 23:45 98 08/25/17 20:23 102 08/25/17 20:07 93 Nasal Cannula 4.00 08/25/17 20:00 97.6 107 20 165/77 (106) 95 I/O 08/25/17 08/25/17 08/25/17 08/26/17 08/26/17 08/26/17 07:00 15:00 23:00 07:00 15:00 23:00 Intake Total 480 ml 180 ml 1160 ml 67 ml Output Total 250 ml 300 ml Balance 230 ml -120 ml 1160 ml 67 ml Intake Oral 480 ml 180 ml IV Total 1160 ml 67 ml Output Urine Total 250 ml 300 ml # Voids 1 Result Diagram: 08/24/1764408/24/17644 Objective Remarks GENERAL:WBWN WF, On vent, sedated SKIN: Warm and dry. HEAD: Normocephalic. EYES: No scleral icterus. No injection or drainage. NECK: Supple, trachea midline. No JVD or lymphadenopathy. CARDIOVASCULAR: Regular rate and rhythm without murmurs, gallops, or rubs. RESPIRATORY: Breath sounds equal bilaterally. No accessory muscle use. GASTROINTESTINAL: Abdomen soft, non-tender, nondistended. MUSCULOSKELETAL: No cyanosis, or edema. BACK: Nontender without obvious deformity. No CVA tenderness. A/P Assessment and Plan IMPRESSION: 1. Chronic obstructive pulmonary disease exacerbation. 2. Bronchitis. 3. Right leg wound. 4. Chronic respiratory insufficiency 5. VDRF PLAN: Vent support Aerosol nebs IV Solumedrol Cont Abx Sedation with diprivan Phenylepherine to support BP Sameer Villa MD Aug 26, 2017 18:00
[2017-08-26] MEDS: CHLORHEXIDINE 0.12% (ORAL KIT) 15 ML CUP MT SCH (20:14)
[2017-08-26] MEDS: BUDESONIDE-FORMOTEROL 80/4.5 MCG INHALER INH SCH (21:00)
[2017-08-26] MEDS: FAMOTIDINE 20 MG TAB NG SCH (21:15)
[2017-08-27] VITALS (19 sets, daily range): BP systolic 112–143; BP diastolic 79–105; PULSE 85–122; RESP 16–30; TEMP 98.7–99; O2SAT 98–100
[2017-08-27] MEDS: PROPOFOL 1000 MG/100 ML INJ 100 ML IV PRN ×4 (02:06→18:56)
[2017-08-27] MEDS: RESP: ALBUTEROL 2.5 MG/IPRATROPIUM 0.5 MG NEB (SCH) NEB ×5 (03:06→23:49)
[2017-08-27 05:41] LABS: AUTOMATED NEUTROPHIL # 11.9 TH/MM3 (1.8-7.7); BASOPHIL % 0.3 % (0.0-2.0); EOSINOPHIL % 0.1 % (0.0-4.0); HEMATOCRIT 29.9 % (35.0-46.0); HEMOGLOBIN 9.8 GM/DL (11.6-15.3); LYMPH % 6.3 % (9.0-44.0); LYMPHOCYTE # 0.8 TH/MM3 (1.0-4.8); MEAN CELL VOLUME 88.9 FL (80.0-100.0); MEAN CORPUSCULAR HEMOGLOBIN 29.1 PG (27.0-34.0); MEAN CORPUSCULAR HGB CONC 32.8 % (32.0-36.0); MEAN PLATELET VOLUME 7.8 FL (7.0-11.0); MONO % 2.4 % (0.0-8.0); MONOCYTE # 0.3 TH/MM3 (0-0.9); NEUT % 90.9 % (16.0-70.0); PLATELET COUNT 193 TH/MM3 (150-450); RED BLOOD COUNT 3.37 MIL/MM3 (4.00-5.30); RED CELL DISTRIBUTION WIDTH 19.4 % (11.6-17.2); WHITE BLOOD COUNT 13.1 TH/MM3 (4.0-11.0)
[2017-08-27 06:15] LABS: BICARBONATE 28.1 MEQ/L (21.0-32.0); CALCIUM 8.5 MG/DL (8.5-10.1); CREATININE 0.95 MG/DL (0.50-1.00)
[2017-08-27] MEDS: methylPREDNISolone SOD SUCC 125 MG/2 ML VIAL IV PUSH SCH ×3 (06:19→17:07)
[2017-08-27 07:44] LABS: BANDS 20 % (0-6); CORRECTED NUCLEATED RBC 5 /100 WBC (0-0); LYMPHOCYTES 7 % (9-44); METAMYELOCYTES 3 % (0-1); MYELOCYTES 4 % (0-0); NEUTROPHIL # MANUAL DIFF 12.2 TH/MM3 (1.8-7.7); NUCLEATED RED BLOOD CELL 5 (0-0); POLYS (SEG NEUTROPHILS) 66 % (16-70)
[2017-08-27] MEDS: INSULIN ASPART SUPPLEMENTAL SCALE SQ SCH ×4 (08:00→21:00)
[2017-08-27] MEDS: CHLORHEXIDINE 0.12% (ORAL KIT) 15 ML CUP MT SCH ×3 (08:13→21:07)
[2017-08-27] MEDS: BUDESONIDE-FORMOTEROL 80/4.5 MCG INHALER INH SCH ×2 (08:13→21:00)
[2017-08-27] MEDS: METOPROLOL TARTRATE 25 MG TAB PO SCH ×2 (08:13→21:06)
[2017-08-27] MEDS: PHENYLEPHRINE INJ 80 MG in SODIUM CHLORID 0.9% 500 ML INJ 492 ML IV PRN (08:17)
[2017-08-27] MEDS: FAMOTIDINE 20 MG TAB NG SCH ×2 (08:49→21:06)
[2017-08-27] MEDS: ALPRAZolam 0.25 MG TAB PO SCH ×3 (08:49→17:07)
[2017-08-27] MEDS: AZITHROMYCIN INJ 500 MG in SODIUM CHLOR 0.9% 250 ML INJ 250 ML IV SCH (12:25)
[2017-08-27] MEDS: cefTRIAXone INJ 1,000 MG in SODIUM CHLORIDE 0.9% INJ 100 ML IV SCH (12:25)
[2017-08-27] MEDS: ENOXAPARIN SODIUM 40 MG/0.4 ML SYRINGE SQ SCH (13:51)
[2017-08-27] MEDS: RESP: ALBUTEROL 2.5 MG/IPRATROPIUM 0.5 MG NEB (PRN) NEB (16:34)
[2017-08-27] MEDS ORDERED: RESP: ALBUTEROL 2.5 MG/IPRATROPIUM 0.5 MG NEB (PRN) NEB (17:00)
--- NOTE | 2017-08-27 17:00 | HHI.CCPN ---
Subjective Remarks/Hospital Course The patient was admitted on 08/23 from [facility], with complaints cough and shortness of breath over the past 3 days, and a 101 low-grade fever. The patient patient had reported at that time a productive cough, yellowish sputum. The patient's has a history of severe COPD and upon presentation to the ED ,she stated that she does not use oxygen at home. She was admitted under [facility] Dr. Vogt. This a.m., the patient was noted to have extreme respiratory distress, sinus tachycardia. The patient had received methylprednisolone a.m. dose and DuoNeb bronchodilator treatment, and BiPAP with no improvement. Halicat was initiated, upon my arrival the patient was noted to be tachypneic ,significantly tachycardic and hypertensive. Discussion with Dr. Vogt, the patient and were informed of the situation, she requested to be intubated at this time. The patient was emergently intubated uneventfully, the patient was transferred to ICU. 08/27: Persistent severe bronchospasm. We are able to blow off CO2 but she has severe bronchospasm still. I welcome input from Dr. Villa. Objective Vital Signs Date Time Temp Pulse Resp B/P (MAP) Pulse Ox O2 Delivery O2 Flow Rate FiO2 08/27/17 16:19 100 30 08/27/17 14:00 100 08/27/17 12:00 98.8 21 136/91 (106) 08/26/17 08:31 Nasal Cannula 3.00 Intake and Output 08/27/17 08/27/17 08/28/17 08:00 16:00 00:00 Intake Total 560 ml Output Total 275 ml Balance -275 ml 560 ml Result Diagram: 08/27/17 0433 08/27/17 0430 Other Results Laboratory Tests Test 08/27/17 04:30 Blood Gas Puncture Site RT BRACHIAL Blood Gas Patient Temperature 98.6 Blood Gas HCO3 27 mmol/L (22-26) Blood Gas Base Excess 3.7 mmol/L (-2-2) Blood Gas Oxygen Saturation 95 % (90-100) Arterial Blood pH 7.50 (7.380-7.420) Arterial Blood Partial Pressure CO2 35 mmHg (38-42) Arterial Blood Partial Pressure O2 89 mmHg (61-120) Arterial Blood Oxygen Content 13.0 Vol % (12.0-20.0) Arterial Blood Carboxyhemoglobin 1.7 % (0-4) Arterial Blood Methemoglobin 1.1 % (0-2) Blood Gas Hemoglobin 9.7 G/DL (12.0-16.0) Oxygen Delivery Device VENTILATOR Blood Gas Ventilator Setting PRVC/AC16/400/5PEEP/ Blood Gas Inspired Oxygen 30 % Imaging Last Impressions Chest X-Ray 08/26/17 0000 Signed Impressions: Service Date/Time: Saturday, August 26, 2017 09:39 - CONCLUSION: Interval placement of an endotracheal tube which appears appropriately positioned. No evidence of acute cardiopulmonary disease. Jennifer Holcomb MD Objective Remarks GENERAL: This is an obese female in significant respiratory distress SKIN: Warm and dry. Ecchymotic bruising bilateral upper and lower extremity. Fungal infection noted groin and breasts. HEAD: Atraumatic. Normocephalic. EYES: Pupils equal and round. No scleral icterus. No injection or drainage. ENT: No nasal bleeding or discharge. Mucous membranes pink and moist. NECK: Trachea midline. Orally intubated. CARDIOVASCULAR: Tachycardic rate, regular rhythm. Telemetry sinus tach RESPIRATORY: Tachypneaic.accessory muscle use. Audible expiratory wheezing. Breath sounds equal bilaterally. GASTROINTESTINAL: Abdomen soft, non-tender, obese ,nondistended. No guarding. Bowel sounds active MUSCULOSKELETAL: Extremities without clubbing, cyanosis, or edema. No obvious deformities. NEUROLOGICAL: Awake and alert. RASS -2. No gross focal/sensory deficits. Follows commands in all 4 extremities. A/P Problem List: (1) Tachycardia ICD Code: R00.0 - Tachycardia, unspecified Status: Chronic (2) Hyperglycemia ICD Code: R73.9 - Hyperglycemia, unspecified Status: Chronic (3) Open leg wound ICD Code: S81.809A - Unspecified open wound, unspecified lower leg, initial encounter Status: Chronic (4) COPD (chronic obstructive pulmonary disease) ICD Code: J44.9 - Chronic obstructive pulmonary disease, unspecified Status: Acute (5) Acute hypercapnic respiratory failure ICD Code: J96.02 - Acute respiratory failure with hypercapnia (6) Acute hypoxemic respiratory failure ICD Code: J96.01 - Acute respiratory failure with hypoxia Assessment and Plan Assessment This is a 66 year old female with a medical history significant for COPD exacerbation tobacco use disorder, asthma, with noted severe COPD with FEV1 of predicted 20%. The patient and are requesting intubation for acute hypercapnic and hypoxemic respiratory failure. The patient emergently intubated and transferred to ICU. Plan Plan by systems: Neurologic: Neuro checks per ICU protocol Daily sedation vacation Propofol infusion to maintain ventilator synchrony Tylenol for fever and/or pain Respiratory: Acute hypoxemic and hypercapnic respiratory failure Probable pneumonia Severe COPD with FEV1 less than 20% COPD exacerbation Asthma Tobacco use disorder Maintain O2 saturation greater than 92% 08/26-emergent intubation 7.5 ETT at 21 cm at the lip. Multi-carious dentition. Noted dentition intact post intubation ABG postintubation 7.4 /545//3 0.4 on FiO2 1.0. Continue to wean to FiO2 of 0.30 Methylprednisolone 60 mg every 6 hours, home meds steroid dependency Pulmonology following Dr. Allen Moraes nebs every 6 hours scheduled every 2 hours as needed Cardiovascular: History of atrial fibrillation Obtain BNP Maintain MAP greater than 65 Telemetry sinus tach Obtain EKG Renal: History of nephrolithiasis Maintain Schmidt catheter -- Strict I/Os FEN/GI: Hypoalbuminemia Normal saline at 42cc/hr Dietary consult for tube feeds Bowel regimen Heme/ID: Probable pneumonia 08/23- Legionella and strep urine antigens negative 08/23-blood culture NGTD 08/23 influenza nasal wash negative Obtain serial lactate Obtain CBC Endocrine: Hyperglycemia of critical illness Glucose monitoring per ICU protocol, low-dose regimen -- SSI Musculoskeletal: Wound care consult for chronic leg wound Prophylaxis: GI Prophylaxis Famotidine DVT Prophylaxis -- SCDs Heparin Lines: PIV's x 2 Dispo: Overall impression: Patient is critically ill with severe bronchospasm despite aggressive steroid and dilator therapy. Remain unable to wean ventilator. Critical care 44 mins Problem Qualifiers (1) COPD (chronic obstructive pulmonary disease): Qualified Codes: J44.1 - Chronic obstructive pulmonary disease with (acute) exacerbation Marcellus Duvall MD Aug 27, 2017 17:00
--- NOTE | 2017-08-27 19:14 | HHI.PR ---
Subjective Remarks 66 YOWF with COPD,Ch Leg wound, DM On Vent Sedated with Diprivan On Phenylepherine Put on PCV Objective Vital Signs Vital Signs Date Time Temp Pulse Resp B/P (MAP) Pulse Ox O2 Delivery O2 Flow Rate FiO2 08/27/17 18:00 104 08/27/17 17:00 30 08/27/17 16:19 100 30 08/27/17 16:00 122 08/27/17 16:00 98.7 122 30 143/105 (118) 100 08/27/17 16:00 30 08/27/17 14:00 100 08/27/17 12:23 100 30 08/27/17 12:00 92 08/27/17 12:00 30 08/27/17 12:00 98.8 92 21 136/91 (106) 100 08/27/17 10:00 95 08/27/17 08:26 98 30 08/27/17 08:17 98 149/97 08/27/17 08:00 30 08/27/17 08:00 98.8 90 16 127/85 (99) 100 08/27/17 08:00 88 08/27/17 06:00 90 08/27/17 04:00 92 08/27/17 04:00 30 08/27/17 03:06 100 30 08/27/17 03:00 99.0 95 27 112/79 (90) 100 08/27/17 02:00 90 08/27/17 00:00 30 08/27/17 00:00 95 08/26/17 23:33 99 30 08/26/17 23:00 99.5 93 26 105/70 (82) 99 08/26/17 22:00 97 08/26/17 20:00 111 08/26/17 20:00 30 08/26/17 19:35 99 30 I/O 08/26/17 08/26/17 08/26/17 08/27/17 08/27/17 08/27/17 07:00 15:00 23:00 07:00 15:00 23:00 Intake Total 180 ml 1160 ml 391 ml 910 ml 190 ml Output Total 300 ml 150 ml 275 ml 225 ml Balance -120 ml 1160 ml 241 ml -275 ml 910 ml -35 ml Intake Oral 180 ml IV Total 1160 ml 241 ml 910 ml 100 ml Tube Irrigant 90 ml Other 150 ml Output Urine Total 300 ml 150 ml 275 ml 175 ml Stool Total 0 ml Gastric Drainage Total 0 ml 50 ml # Bowel Movements 0 0 0 Result Diagram: 08/27/1743208/27/17429 Objective Remarks GENERAL:WBWN WF, On vent, sedated SKIN: Warm and dry. HEAD: Normocephalic. EYES: No scleral icterus. No injection or drainage. NECK: Supple, trachea midline. No JVD or lymphadenopathy. CARDIOVASCULAR: Regular rate and rhythm without murmurs, gallops, or rubs. RESPIRATORY: Breath sounds equal bilaterally. No accessory muscle use. GASTROINTESTINAL: Abdomen soft, non-tender, nondistended. MUSCULOSKELETAL: No cyanosis, or edema. BACK: Nontender without obvious deformity. No CVA tenderness. A/P Assessment and Plan IMPRESSION: 1. Chronic obstructive pulmonary disease exacerbation. 2. Bronchitis. 3. Right leg wound. 4. Chronic respiratory insufficiency 5. VDRF PLAN: Vent support Aerosol nebs IV Solumedrol Cont Abx Sedation with diprivan Phenylepherine to support BP PCV Sameer Villa MD Aug 27, 2017 19:14
[2017-08-28] VITALS (16 sets, daily range): BP systolic 92–158; BP diastolic 59–110; PULSE 76–122; RESP 12–30; TEMP 96.8–98.9; O2SAT 96–100
[2017-08-28] MEDS: methylPREDNISolone SOD SUCC 125 MG/2 ML VIAL IV PUSH SCH ×4 (00:13→18:27)
[2017-08-28] MEDS: PROPOFOL 1000 MG/100 ML INJ 100 ML IV PRN ×5 (01:13→21:23)
[2017-08-28] MEDS: RESP: ALBUTEROL 2.5 MG/IPRATROPIUM 0.5 MG NEB (SCH) NEB ×6 (03:53→23:50)
[2017-08-28] MEDS: ALPRAZolam 0.25 MG TAB PO PRN (05:13)
--- NOTE | 2017-08-28 05:30 | RADRPT ---
EXAM DATE/TIME: 08/28/2017 04:36 [facility] COMPARISON: CHEST SINGLE AP, August 26, 2017, 9:39. INDICATIONS : Short of breath. MEDICAL HISTORY : Cardiovascular disease. Chronic obstructive pulmonary disease. SURGICAL HISTORY : Tubal ligation. ENCOUNTER: Subsequent ACUITY: 3 days PAIN SCORE: 0/10 LOCATION: Bilateral chest FINDINGS: A single view of the chest demonstrates hyperaeration with minimal left basilar density. Heart mildly enlarged. Endotracheal tube and nasogastric tube unchanged. Osseous structures are intact. CONCLUSION: Minimal left basilar density, likely atelectasis. David Maya MD on August 28, 2017 at 5:28 Board Certified Radiologist. This report was verified electronically.
[2017-08-28 07:16] LABS: BICARBONATE 23.4 MEQ/L (21.0-32.0); CALCIUM 8.3 MG/DL (8.5-10.1); CREATININE 1.13 MG/DL (0.50-1.00)
[2017-08-28] MEDS: CHLORHEXIDINE 0.12% (ORAL KIT) 15 ML CUP MT SCH ×4 (08:00→20:00)
[2017-08-28] MEDS: BUDESONIDE-FORMOTEROL 80/4.5 MCG INHALER INH SCH ×2 (08:44→21:00)
[2017-08-28] MEDS: FAMOTIDINE 20 MG TAB NG SCH ×2 (09:49→21:37)
[2017-08-28] MEDS: METOPROLOL TARTRATE 25 MG TAB PO SCH (09:49)
[2017-08-28] MEDS: ALPRAZolam 0.25 MG TAB PO SCH ×3 (09:49→18:27)
[2017-08-28] MEDS: INSULIN ASPART SUPPLEMENTAL SCALE SQ SCH ×4 (09:49→21:00)
[2017-08-28 09:50] LABS: AUTOMATED NEUTROPHIL # 11.6 TH/MM3 (1.8-7.7); BASOPHIL % 0.2 % (0.0-2.0); EOSINOPHIL % 0.1 % (0.0-4.0); HEMATOCRIT 31.5 % (35.0-46.0); HEMOGLOBIN 10.3 GM/DL (11.6-15.3); LYMPH % 4.8 % (9.0-44.0); LYMPHOCYTE # 0.6 TH/MM3 (1.0-4.8); MEAN CELL VOLUME 88.2 FL (80.0-100.0); MEAN CORPUSCULAR HEMOGLOBIN 28.9 PG (27.0-34.0); MEAN CORPUSCULAR HGB CONC 32.7 % (32.0-36.0); MEAN PLATELET VOLUME 8.3 FL (7.0-11.0); MONOCYTE # 0.2 TH/MM3 (0-0.9); NEUT % 92.9 % (16.0-70.0); PLATELET COUNT 184 TH/MM3 (150-450); RED BLOOD COUNT 3.57 MIL/MM3 (4.00-5.30); RED CELL DISTRIBUTION WIDTH 19.2 % (11.6-17.2); WHITE BLOOD COUNT 12.5 TH/MM3 (4.0-11.0)
[2017-08-28 10:33] LABS: BANDS 10 % (0-6); CORRECTED NUCLEATED RBC 2 /100 WBC (0-0); LYMPHOCYTES 1 % (9-44); METAMYELOCYTES 5 % (0-1); MONOCYTES 4 % (0-8); MYELOCYTES 3 % (0-0); NEUTROPHIL # MANUAL DIFF 11.9 TH/MM3 (1.8-7.7); NUCLEATED RED BLOOD CELL 2 (0-0); OVALOCYTES 1+ (NORMAL); POLYS (SEG NEUTROPHILS) 77 % (16-70); TOXIC GRANULATION 1+ (NORMAL)
[2017-08-28] MEDS: cefTRIAXone INJ 1,000 MG in SODIUM CHLORIDE 0.9% INJ 100 ML IV SCH (12:58)
[2017-08-28] MEDS: ENOXAPARIN SODIUM 40 MG/0.4 ML SYRINGE SQ SCH (13:48)
[2017-08-28] MEDS: AZITHROMYCIN INJ 500 MG in SODIUM CHLOR 0.9% 250 ML INJ 250 ML IV SCH (13:48)
--- NOTE | 2017-08-28 14:35 | HHI.CCPN ---
Subjective Remarks/Hospital Course The patient was admitted on 08/23 from [facility], with complaints cough and shortness of breath over the past 3 days, and a 101 low-grade fever. The patient patient had reported at that time a productive cough, yellowish sputum. The patient's has a history of severe COPD and upon presentation to the ED ,she stated that she does not use oxygen at home. She was admitted under [facility] Dr. Vogt. This a.m., the patient was noted to have extreme respiratory distress, sinus tachycardia. The patient had received methylprednisolone a.m. dose and DuoNeb bronchodilator treatment, and BiPAP with no improvement. Halicat was initiated, upon my arrival the patient was noted to be tachypneic ,significantly tachycardic and hypertensive. Discussion with Dr. Vogt, the patient and were informed of the situation, she requested to be intubated at this time. The patient was emergently intubated uneventfully, the patient was transferred to ICU. 08/27: Persistent severe bronchospasm. We are able to blow off CO2 but she has severe bronchospasm still. I welcome input from Dr. Villa. 08/28: CXR clear now, hyperinflated. Airway pressures improving. Tight bronchospasm persists. Objective Vital Signs Date Time Temp Pulse Resp B/P (MAP) Pulse Ox O2 Delivery O2 Flow Rate FiO2 08/28/17 14:13 100 30 08/28/17 12:00 97.2 84 16 92/59 (70) 08/26/17 08:31 Nasal Cannula 3.00 Intake and Output 08/28/17 08/28/17 08/29/17 08:00 16:00 00:00 Intake Total 30 ml Output Total 350 ml Balance -320 ml Result Diagram: 08/28/17 0820 08/28/17 0505 Other Results Microbiology Date/Time Source Procedure Growth Status 08/26/17 13:17 Sputum Endotracheal Gram Stain - Final Complete 08/26/17 13:17 Sputum Endotracheal Sputum Culture - Final HEAVY GROWTH NORMAL RESPIRATORY ELVIN Complete Laboratory Tests Test 08/27/17 18:00 Blood Gas Puncture Site LT RADIAL Blood Gas Patient Temperature 98.6 Blood Gas HCO3 25 mmol/L (22-26) Blood Gas Base Excess 0.6 mmol/L (-2-2) Blood Gas Oxygen Saturation 95 % (90-100) Arterial Blood pH 7.41 (7.380-7.420) Arterial Blood Partial Pressure CO2 39 mmHg (38-42) Arterial Blood Partial Pressure O2 102 mmHg (61-120) Arterial Blood Oxygen Content 13.3 Vol % (12.0-20.0) Arterial Blood Carboxyhemoglobin 1.5 % (0-4) Arterial Blood Methemoglobin 1.3 % (0-2) Blood Gas Hemoglobin 9.8 G/DL (12.0-16.0) Oxygen Delivery Device VENTILATOR Blood Gas Ventilator Setting Blood Gas Inspired Oxygen 30 % Imaging Last Impressions Chest X-Ray 08/26/17 0000 Signed Impressions: Service Date/Time: Saturday, August 26, 2017 09:39 - CONCLUSION: Interval placement of an endotracheal tube which appears appropriately positioned. No evidence of acute cardiopulmonary disease. Jennifer Holcomb MD Objective Remarks GENERAL: This is an obese female in significant respiratory distress SKIN: Warm and dry. Ecchymotic bruising bilateral upper and lower extremity. Fungal infection noted groin and breasts. HEAD: Atraumatic. Normocephalic. EYES: Pupils equal and round. No scleral icterus. No injection or drainage. ENT: No nasal bleeding or discharge. Mucous membranes pink and moist. NECK: Trachea midline. Orally intubated. CARDIOVASCULAR: Tachycardic rate, regular rhythm. Telemetry sinus tach RESPIRATORY: Tachypneic with accessory muscle use. Breath sounds distant, poor air movement. GASTROINTESTINAL: Abdomen soft, non-tender, obese ,nondistended. No guarding. Bowel sounds active MUSCULOSKELETAL: Extremities without clubbing, cyanosis, or edema. No obvious deformities. NEUROLOGICAL: Awake and alert. RASS -2. No gross focal/sensory deficits. Follows commands in all 4 extremities. A/P Problem List: (1) Tachycardia ICD Code: R00.0 - Tachycardia, unspecified Status: Chronic (2) Hyperglycemia ICD Code: R73.9 - Hyperglycemia, unspecified Status: Chronic (3) Open leg wound ICD Code: S81.809A - Unspecified open wound, unspecified lower leg, initial encounter Status: Chronic (4) COPD (chronic obstructive pulmonary disease) ICD Code: J44.9 - Chronic obstructive pulmonary disease, unspecified Status: Acute (5) Acute hypercapnic respiratory failure ICD Code: J96.02 - Acute respiratory failure with hypercapnia (6) Acute hypoxemic respiratory failure ICD Code: J96.01 - Acute respiratory failure with hypoxia Assessment and Plan Assessment This is a 66 year old female with a medical history significant for COPD exacerbation tobacco use disorder, asthma, with noted severe COPD with FEV1 of predicted 20%. The patient and are requesting intubation for acute hypercapnic and hypoxemic respiratory failure. Plan Plan by systems: Neurologic: Neuro checks per ICU protocol Daily sedation vacation Propofol infusion to maintain ventilator synchrony Tylenol for fever and/or pain Respiratory: Acute hypoxemic and hypercapnic respiratory failure Probable pneumonia Severe COPD with FEV1 less than 20% COPD exacerbation Asthma Tobacco use disorder Maintain O2 saturation greater than 92% 08/26-emergent intubation 7.5 ETT at 21 cm at the lip. Multi-carious dentition. Noted dentition intact post intubation ABG postintubation 7.4 /545// 0.4 on FiO2 1.0. Continue to wean to FiO2 of 0.30 Methylprednisolone 60 mg every 6 hours, home meds steroid dependency Pulmonology following Dr. Allen Moraes nebs every 6 hours scheduled every 2 hours as needed. Though doubtful a contributor, will stop lopressor. Cardiovascular: History of atrial fibrillation Obtain BNP Maintain MAP greater than 65 Telemetry sinus tach Obtain EKG Renal: History of nephrolithiasis Maintain Schmidt catheter -- Strict I/Os FEN/GI: Hypoalbuminemia Normal saline at 42cc/hr Dietary consult for tube feeds Bowel regimen Heme/ID: Probable pneumonia 08/23- Legionella and strep urine antigens negative 08/23-blood culture NGTD 08/23 influenza nasal wash negative Obtain serial lactate Obtain CBC Endocrine: Hyperglycemia of critical illness Glucose monitoring per ICU protocol, low-dose regimen -- SSI Musculoskeletal: Wound care consult for chronic leg wound Prophylaxis: GI Prophylaxis Famotidine DVT Prophylaxis -- SCDs Heparin Lines: PIV's x 2 Dispo: Overall impression: Patient is critically ill with severe bronchospasm despite aggressive steroid and dilator therapy. Remain unable to wean ventilator. Sputum benign. Needs continued followup with [facility]. Critical care 43 mins Problem Qualifiers (1) COPD (chronic obstructive pulmonary disease): Qualified Codes: J44.1 - Chronic obstructive pulmonary disease with (acute) exacerbation Marcellus Duvall MD Aug 28, 2017 14:35
--- NOTE | 2017-08-28 16:29 | PD.CONS ---
Consult Service Palliative Care Consult Requested By Dr. Alves Primary Care Physician Unknown Reason for Consultation a. To assist with evaluation and management of symptoms including: dyspnea b. To assist medical decision maker(s) with: better understanding of current medical conditions; weighing benefits/burdens of medical treatment options; making medical treatment decisions. HPI History of Present Illness This 66-year-old female presented to the ED on 08/23/17 with complaints of cough and shortness of breath 3 days, date presentation with fever 101. She presented from nursing facility. She received Tylenol, prednisone per EMS. Known history of COPD, not O2 dependent. Shortness of breath worsens with any activity. No reported nausea vomiting diarrhea abdominal pain back pain. She developed a cough the day before presentation and was started by facility provider on oral prednisone, azithromycin * ED: EKG = sinus tachy 120. No evidence STEMI. Mild anemia hemoglobin 9.5/ hematocrit 28.3. Coags unremarkable. Glucose 165, lactic acid 0.9, chemistry unremarkable. BNP 127. Albumin 2.6. Troponin negative. Influenza negative. CXR= ?haziness left lower lobe. Initiated on antibiotics for possible pneumonia pending x-ray official reading. * CXR with no definite infiltrates. Sputum culture ordered. Continued on Rocephin, azithromycin started on Solu-Medrol. Patient elected full CODE STATUS. * Pulmonology consulted: Recommend continue antibiotics, steroids. Wean O2 as tolerated. Pt to use acapella, and Mucinex. [Hx of severe COPD with FEV1 of 0.5 predicted 20% March 2017. Diffusion capacity severely decreased. Severe obstructive lung disease. ] Will follow. * 08/26 BiPAP had been noted to be ordered the prior evening and had not been applied. Patient and in agreement intubation. TRISH was called. patient with acute hypoxemic respiratory failure-- intubated by critical care. * 08/27 critical care notes patient with persistent severe bronchospasm despite steroids, dilators. Currently unable to wean ventilator. * 08/28 CXR clearing, hyperinflated. Airway pressures improving. Still with bronchospasm. Not able to wean off vent at this time. Palliative care consulted to assist with clarification of goals of treatment. Patient seen in room nurse at bedside. Patient is sedated on mechanical vent. RT at bedside checking ventilator. Patient is nonresponsive to my exam, sedated on Diprivan 50 mics. Nursing reports requiring significant sedation due to vent asynchrony, not tolerating ventilator settings. Requiring phenylephrine drip at 20 mics/minute for hypotension. Following exam call to patient and he indicates he is leaving work in a few minutes to head to the hospital I will meet with him at that time. Of note patient has had several recent prolonged admissions: 06/13 through 07/17 for right lower extremity wound with multiple surgical debridements and wound VAC, she was again readmitted 07/26-08/05 for COPD exacerbation, acute bronchitis. Palliative care was consulted during May admission, she was seen by Dr. Aaron 07/04/17, and then subsequent follow-ups. During that admission she elected DNR status. She completed healthcare surrogate naming her , and signed community DNR. Goals of care were expressed as aggressive short of resuscitation. At times patient did not want to participate with therapy, therapy was decreased to 3-5 days per week due to this. She tolerated standing with max assistance 2, transfer to chair with max assistance.. She utilized a rolling walker. Function/Cognitive Trajectory Most recent hospitalization patient was discharged to [facility] for [facility]. Family had requested [facility] however patient felt unable to tolerate 3 hours of therapy per physical therapy. (Review of PT notes from May through June patient often did not wish to participate, PT noted she did not have endurance to tolerate 3 hours of therapy )prior to May admission lives at home with and reported to be independent with ADLs. Patient spouse details that she has been much weaker recently due to her recurrent hospitalizations, most recent PT activity at nursing facility she was able to stand up with a walker for about 30 seconds to a minute. She had not progressed to walking yet though they are hoping to walk soon and go home in about 5 days. Review of Systems ROS Limitations: Clinical Condition, Intubated, Unresponsive Respiratory: COMPLAINS OF: Cough, Shortness of breath (Her ) Past Family Social History Coded Allergies: codeine (Verified Allergy, Severe, HIVES, 08/23/17) morphine (Verified Allergy, Severe, Anaphylaxis, 08/23/17) sulfamethoxazole (Verified Allergy, Severe, HIVES, 08/23/17) trimethoprim (Verified Allergy, Severe, HIVES, 08/23/17) Past Medical History COPD Asthma History of bowel obstruction Hyperglycemia ---steroid induced Breast cancer Chronic nonhealing wound right lower extremity Anxiety . Past Surgical History Right breast lumpectomy, XRT 1995 Partial colon resection secondary to obstruction Surgical wound debridements- with wound VAC placement 05/2017; multiple debridements and VAC dressing changes . Reported Medications Xanax (Alprazolam) 0.25 Mg Tab 0.25 Mg PO Q8H PRN Xanax (Alprazolam) 0.25 Mg Tab 0.25 Mg PO TID Protonix (Pantoprazole Sodium) 40 Mg Tab 40 Mg PO DAILY Duoneb (Ipratropium-Albuterol Neb) 0.5-2.5 Mg/3 Ml Neb 1 Nebule INH Q6HR NEB Metoprolol Tartrate 25 Mg Tab 25 Mg PO Q12HR Reported Novolog Inj (Insulin Aspart) 1,000 Unit/10 Ml Vial 1-9 Units SQ ACHS Sliding scale as follows:150-199=1 unit,200-249=3 units,250-299=5 units,300-349=7 units,over 349=9 units Tramadol (Tramadol HCl) 50 Mg Tab 50 Mg PO Q6H PRN Duoneb (Ipratropium-Albuterol Neb) 0.5-2.5 Mg/3 Ml Neb 1 Nebule INH Q2HR PRN Ascorbic Acid 500 Mg Tab 500 Mg PO BID Prednisone 10 Mg Tab 10 Mg PO DAILY 5 Days Stop date:08/27/17 Zinc Sulfate 220 Mg (50 Mg Zinc) Cap 220 Mg PO DAILY 14 Days Stop date:08/23 Multiple Vitamin 1 Tab 1 Tab PO DAILY Symbicort Inh (Budesonide/Formoterol Fumarate) 80-4.5 Mcg/Act Aero 2 Puff INH Q12HR . Current Medications Medications (Trade) Dose Ordered Sig/Ely Route Start Time Stop Time Status Last Admin (NS Flush) 2 ml UNSCH PRN IVF 08/23/17 10:30 08/24/17 09:48 (SoluMEDROL INJ) 60 mg Q6HR IV PUSH 08/23/17 18:00 08/28/17 12:58 (Duoneb Neb) 1 ampule Q2HR NEB PRN NEB 08/23/17 16:00 08/27/17 16:34 Ceftriaxone Sodium 1000 mg/ Sodium Chloride 100 ml @ 200 mls/hr Q24H IV 08/24/17 12:00 08/28/17 12:58 Azithromycin 500 mg/Sodium Chloride 250 ml @ 250 mls/hr Q24H IV 08/24/17 12:00 08/28/17 13:48 (Xanax) 0.25 mg Q8H PRN PO 08/23/17 16:15 08/28/17 05:13 (Xanax) 0.25 mg TID PO 08/23/17 18:00 08/28/17 13:48 (Symbicort 80-4.5 Mcg Inh) 2 puff Q12HR INH 08/23/17 21:00 08/25/17 21:24 (Ultram) 50 mg Q6H PRN PO 08/23/17 16:15 (NovoLOG SUPPLEMENTAL SCALE) 1 ACHS SLIDING SCALE SQ 08/24/17 08:00 08/28/17 12:59 (Brethine Inj) 1 mg UNSCH PRN SQ 08/26/17 12:00 (Peridex 0.12% Liq) 15 ml BID@08,20 MT 08/26/17 20:00 08/28/17 09:48 Propofol 100 ml @ 2.139 mls/ hr TITRATE PRN IV 08/26/17 12:00 08/28/17 13:00 (Pepcid) 20 mg BID NG 08/26/17 21:00 08/28/17 09:49 (Lovenox Inj) 40 mg Q24H SQ 08/26/17 14:00 08/28/17 13:48 Phenylephrine HCl 80 mg/Sodium Chloride 500 ml @ 15 mls/hr TITRATE PRN IV 08/26/17 12:30 08/27/17 08:17 (Peridex 0.12% Liq) 15 ml BID@08,20 MT 08/27/17 20:00 (Duoneb Neb) 1 ampule Q4HR NEB NEB 08/27/17 20:00 08/28/17 14:15 (Duoneb Neb) 1 ampule Q2HR NEB PRN NEB 08/27/17 17:00 (Levemir Inj) 5 units Q12HR SQ 08/28/17 21:00 Family History Per EMR: Father of coronary artery disease Mother at an old age but was a "hypochondriac." . Substance Use Tobacco: Smokes 5-6 cigarettes a day, previously smoked 1 pack per day for more than 45 years Alcohol: None Prescription med abuse: None Illicits: None . 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 Originally from [place], moved to this area 9 years ago. to her third in August 2016. Living Will: Never completed Health Care Surrogate: Copy in medical record Durable Power of Public Health Specialist: Never completed Ethical and Legal Issues Patient currently on mechanical vent unable to participate in decision-making. Not clear if she will regain ability to participate. Krishan is designated as healthcare surrogate. Physical Exam Vital Signs Date Time Temp Pulse Resp B/P (MAP) Pulse Ox O2 Delivery O2 Flow Rate FiO2 08/28/17 14:13 100 30 08/28/17 12:00 97.2 84 16 92/59 (70) 100 08/28/17 12:00 30 08/28/17 12:00 82 88/58 08/28/17 11:04 100 30 08/28/17 09:08 99 72/50 08/28/17 08:00 30 08/28/17 08:00 97.8 122 21 158/110 (126) 100 08/28/17 07:25 100 30 08/28/17 06:00 84 08/28/17 04:01 100 30 08/28/17 04:00 30 08/28/17 04:00 98.9 96 30 143/101 (115) 100 08/28/17 04:00 102 08/28/17 02:00 89 08/28/17 00:00 98.9 80 25 110/85 (93) 100 08/28/17 00:00 30 08/28/17 00:00 85 08/27/17 23:49 100 30 08/27/17 22:00 85 08/27/17 20:00 98.7 92 20 120/86 (97) 100 08/27/17 20:00 92 08/27/17 20:00 30 08/27/17 19:12 100 30 08/27/17 18:00 104 08/27/17 17:00 30 08/27/17 16:19 100 30 08/27/17 16:00 122 08/27/17 16:00 98.7 122 30 143/105 (118) 100 08/27/17 16:00 30 Exam CONSTITUTIONAL/GENERAL: This is an adequately nourished patient, in no apparent distress, sedated on mechanical vent TUBES/LINES/DRAINS: Peripheral IV bilateral upper extremities, Schmidt catheter, ET tube, OG tube SKIN: No jaundice, rashes, or lesions. Multiple areas of ecchymoses scattered to bilateral upper and lower extremities, as well as several multiple small skin tears skin very thin/ chronic steroid use. Dressing right lower extremity covering most of lower leg clean and dry. Small dressing to right arm, left arm clean and dry. Skin warm and dry. Distal feet are cool to the touch. HEAD: Atraumatic. Normocephalic. EYES: Pupils equal and round and reactive. No scleral icterus. No injection or drainage. Fundi not examined. ENT: Nose without bleeding or purulent drainage. Unable to visualize oropharynx secondary ET tube, OG tube NECK: Trachea midline. Supple, nontender. No palpable thyroid enlargement or nodularity. CARDIOVASCULAR: Regular rate and rhythm without murmur. No JVD. Peripheral pulses symmetric-feet are cool pedal pulses faint/difficult to palpate. RESPIRATORY/CHEST: Symmetric, unlabored respirations via mechanical vent. Decreased air movement throughout, scattered wheezes. Breath sounds equal bilaterally. GASTROINTESTINAL: Abdomen soft, round, unable to determine tenderness, nondistended. No hepato-splenomegaly, or palpable masses. No guarding. Bowel sounds hypoactive. OG tube in place clamped. GENITOURINARY: Without palpable bladder distension. Schmidt catheter in place. MUSCULOSKELETAL: Extremities without clubbing, cyanosis, or edema. Multiple scattered ecchymoses and small skin tears. LYMPHATICS: No palpable cervical or supraclavicular adenopathy. NEUROLOGICAL: Sedated on mechanical vent. On to prevent 50 mics/kilogram/ minute. Does not arouse to exam no eye opening, follow commands. PSYCHIATRIC: Limited assessment due to clinical condition. No evident anxiety. Diagnostic Tests Laboratory Laboratory Tests Test 08/26/17 09:09 08/26/17 10:20 08/26/17 10:30 08/26/17 11:08 Blood Gas Puncture Site RT RADIAL LT RADIAL RT RADIAL Blood Gas Patient Temperature 98.6 98.6 98.6 Blood Gas HCO3 30 mmol/L (22-26) 28 mmol/L (22-26) 26 mmol/L (22-26) Blood Gas Base Excess 2.3 mmol/L (-2-2) 3.4 mmol/L (-2-2) 1.6 mmol/L (-2-2) Blood Gas Oxygen Saturation 95 % (90-100) 98 % (90-100) 97 % (90-100) Arterial Blood pH 7.16 (7.380-7.420) 7.42 (7.380-7.420) 7.41 (7.380-7.420) Arterial Blood Partial Pressure CO2 88 mmHg (38-42) 44 mmHg (38-42) 42 mmHg (38-42) Arterial Blood Partial Pressure O2 113 mmHg (61-120) 545 mmHg (61-120) 137 mmHg (61-120) Arterial Blood Oxygen Content 13.7 Vol % (12.0-20.0) 14.2 Vol % (12.0-20.0) 14.4 Vol % (12.0-20.0) Arterial Blood Carboxyhemoglobin 1.2 % (0-4) 1.4 % (0-4) 1.3 % (0-4) Arterial Blood Methemoglobin 0.8 % (0-2) 0.9 % (0-2) 0.9 % (0-2) Blood Gas Hemoglobin 10.1 G/DL (12.0-16.0) 9.2 G/DL (12.0-16.0) 10.3 G/DL (12.0-16.0) Oxygen Delivery Device Partial Rebreather VENTILATOR VENTILATOR Blood Gas Inspired Oxygen 80 % 100 % 40 % Blood Gas Ventilator Setting PRVC/AC Nasal Screen MRSA (PCR) MRSA DETECTED (NOT DETECT) Test 08/27/17 04:30 08/27/17 04:33 08/27/17 18:00 08/28/17 05:05 Blood Gas Puncture Site RT BRACHIAL LT RADIAL Blood Gas Patient Temperature 98.6 98.6 Blood Gas HCO3 27 mmol/L (22-26) 25 mmol/L (22-26) Blood Gas Base Excess 3.7 mmol/L (-2-2) 0.6 mmol/L (-2-2) Blood Gas Oxygen Saturation 95 % (90-100) 95 % (90-100) Arterial Blood pH 7.50 (7.380-7.420) 7.41 (7.380-7.420) Arterial Blood Partial Pressure CO2 35 mmHg (38-42) 39 mmHg (38-42) Arterial Blood Partial Pressure O2 89 mmHg (61-120) 102 mmHg (61-120) Arterial Blood Oxygen Content 13.0 Vol % (12.0-20.0) 13.3 Vol % (12.0-20.0) Arterial Blood Carboxyhemoglobin 1.7 % (0-4) 1.5 % (0-4) Arterial Blood Methemoglobin 1.1 % (0-2) 1.3 % (0-2) Blood Gas Hemoglobin 9.7 G/DL (12.0-16.0) 9.8 G/DL (12.0-16.0) Oxygen Delivery Device VENTILATOR VENTILATOR Blood Gas Ventilator Setting PRVC/AC16/400/5PEEP/ Blood Gas Inspired Oxygen 30 % 30 % Blood Urea Nitrogen 39 MG/DL (7-18) 55 MG/DL (7-18) Creatinine 0.95 MG/DL (0.50-1.00) 1.13 MG/DL (0.50-1.00) Random Glucose 138 MG/DL (74-106) 239 MG/DL (74-106) Calcium Level 8.5 MG/DL (8.5-10.1) 8.3 MG/DL (8.5-10.1) Sodium Level 140 MEQ/L (136-145) 140 MEQ/L (136-145) Potassium Level 4.7 MEQ/L (3.5-5.1) 5.1 MEQ/L (3.5-5.1) Chloride Level 103 MEQ/L (98-107) 103 MEQ/L (98-107) Carbon Dioxide Level 28.1 MEQ/L (21.0-32.0) 23.4 MEQ/L (21.0-32.0) Anion Gap 9 MEQ/L (5-15) 14 MEQ/L (5-15) Estimat Glomerular Filtration Rate 59 ML/MIN (>89) 48 ML/MIN (>89) White Blood Count 13.1 TH/MM3 (4.0-11.0) Red Blood Count 3.37 MIL/MM3 (4.00-5.30) Hemoglobin 9.8 GM/DL (11.6-15.3) Hematocrit 29.9 % (35.0-46.0) Mean Corpuscular Volume 88.9 FL (80.0-100.0) Mean Corpuscular Hemoglobin 29.1 PG (27.0-34.0) Mean Corpuscular Hemoglobin Concent 32.8 % (32.0-36.0) Red Cell Distribution Width 19.4 % (11.6-17.2) Platelet Count 193 TH/MM3 (150-450) Mean Platelet Volume 7.8 FL (7.0-11.0) Neutrophils (%) (Auto) 90.9 % (16.0-70.0) Lymphocytes (%) (Auto) 6.3 % (9.0-44.0) Monocytes (%) (Auto) 2.4 % (0.0-8.0) Eosinophils (%) (Auto) 0.1 % (0.0-4.0) Basophils (%) (Auto) 0.3 % (0.0-2.0) Neutrophils # (Auto) 11.9 TH/MM3 (1.8-7.7) Lymphocytes # (Auto) 0.8 TH/MM3 (1.0-4.8) Monocytes # (Auto) 0.3 TH/MM3 (0-0.9) Eosinophils # (Auto) 0.0 TH/MM3 (0-0.4) Basophils # (Auto) 0.0 TH/MM3 (0-0.2) CBC Comment AUTO DIFF Differential Total Cells Counted 100 Neutrophils % (Manual) 66 % (16-70) Band Neutrophils % 20 % (0-6) Lymphocytes % 7 % (9-44) Neutrophils # (Manual) 12.2 TH/MM3 (1.8-7.7) Metamyelocytes 3 % (0-1) Myelocytes 4 % (0-0) Nucleated Red Blood Cells 5 /100 WBC (0-0) Differential Comment FINAL DIFF MANUAL Platelet Estimate NORMAL (NORMAL) Platelet Morphology Comment NORMAL (NORMAL) Test 08/28/17 08:20 White Blood Count 12.5 TH/MM3 (4.0-11.0) Red Blood Count 3.57 MIL/MM3 (4.00-5.30) Hemoglobin 10.3 GM/DL (11.6-15.3) Hematocrit 31.5 % (35.0-46.0) Mean Corpuscular Volume 88.2 FL (80.0-100.0) Mean Corpuscular Hemoglobin 28.9 PG (27.0-34.0) Mean Corpuscular Hemoglobin Concent 32.7 % (32.0-36.0) Red Cell Distribution Width 19.2 % (11.6-17.2) Platelet Count 184 TH/MM3 (150-450) Mean Platelet Volume 8.3 FL (7.0-11.0) Neutrophils (%) (Auto) 92.9 % (16.0-70.0) Lymphocytes (%) (Auto) 4.8 % (9.0-44.0) Monocytes (%) (Auto) 2.0 % (0.0-8.0) Eosinophils (%) (Auto) 0.1 % (0.0-4.0) Basophils (%) (Auto) 0.2 % (0.0-2.0) Neutrophils # (Auto) 11.6 TH/MM3 (1.8-7.7) Lymphocytes # (Auto) 0.6 TH/MM3 (1.0-4.8) Monocytes # (Auto) 0.2 TH/MM3 (0-0.9) Eosinophils # (Auto) 0.0 TH/MM3 (0-0.4) Basophils # (Auto) 0.0 TH/MM3 (0-0.2) CBC Comment AUTO DIFF Differential Total Cells Counted 100 Neutrophils % (Manual) 77 % (16-70) Band Neutrophils % 10 % (0-6) Lymphocytes % 1 % (9-44) Monocytes % 4 % (0-8) Neutrophils # (Manual) 11.9 TH/MM3 (1.8-7.7) Metamyelocytes 5 % (0-1) Myelocytes 3 % (0-0) Nucleated Red Blood Cells 2 /100 WBC (0-0) Differential Comment FINAL DIFF MANUAL Toxic Granulation 1+ (NORMAL) Platelet Estimate NORMAL (NORMAL) Platelet Morphology Comment NORMAL (NORMAL) Ovalocytes 1+ (NORMAL) Result Diagram: 08/28/17 8320 08/28/17 0140 Microbiology Microbiology Date/Time Source Procedure Growth Status 08/26/17 13:17 Sputum Endotracheal Gram Stain - Final Complete 08/26/17 13:17 Sputum Endotracheal Sputum Culture - Final HEAVY GROWTH NORMAL RESPIRATORY ELVIN Complete Imaging Last Impressions Chest X-Ray 08/28/17 0400 Signed Impressions: Service Date/Time: Monday, August 28, 2017 04:36 - CONCLUSION: Minimal left basilar density, likely atelectasis. David Maya MD Procedures 08/26 intubated Patient/Family Conference Family Conference Location: Bedside Issues Discussed: Met with patient and spouse approximately 30 minutes at bedside discussion included: * Palliative care role, purpose, approach * Additional medical, psychosocial, and spiritual history * Patients general health, functional status, and cognitive changes in the months leading up to the current hospitalization * Patient/family understanding of the current medical problems; review of COPD disease process, in the presence of other chronic medical issues and patient now chronic debility * Patient/family understanding of prognosis * Patients goals of care as best understood from advance directives and/or conversations and/or values * Current medical treatment options and benefits/burdens of those options * Legal decision makers * CODE STATUS-- indicates she would want alternative code, intubation only no further cardiac measures * Likely scenarios comparing ongoing aggressive care with a transition to comfort measures only-brief exploration if patient did not desire ongoing aggressive interventions and was not able to wean off ventilator etc. she would have option for comfort measures, de-escalation, hospice services * Questions answered to the best of my ability * Palliative care contact information provided Patient appropriately tearful at times. He appears to have reasonable understanding of conditions and possible trajectories going forward. He understands risks of complications going forward. He understands the longer patient remains hospitalized more debilitated and weak she will become, and more likely she would require SNF and possible long-term placement. We did review possibility of tracheostomy, PEG and longer-term ventilation and support if patient does not show significant improvement in the next few days. He is not certain that she would want to proceed with the tracheostomy and PEG. He wishes to see how she does in the next few days and will make further decisions pending clinical course. He is open to ongoing discussion with providers as course evolves. 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 Originally from [place] , moved to this area 9 years ago. to her third in August 2016. Spiritual: Legal: Patient not able to participate due to clinical conditions. has been designated as healthcare surrogate. Ethical issues impacting care: No ethical issues identified. Important Contacts [employer] . Prognosis This patient was admitted for dyspnea. She has had 2 recent prolonged hospitalizations. She has had significant physical decline, debility. She is currently unable to wean off of mechanical vent due to end-stage COPD, bronchospasm. She would be appropriate for hospice if goals compatible. Code Status: Alternative Code Plan * Legal decision maker:Patient currently on mechanical vent unable to participate in decision-making. Not clear if she will regain ability to participate. Krishan is designated as healthcare surrogate. * Goals: Patient appropriately tearful at times. He appears to have reasonable understanding of conditions and possible trajectories going forward. He understands risks of complications going forward. He understands the longer patient remains hospitalized more debilitated and weak she will become, and more likely she would require SNF and possible long-term placement. We did review possibility of tracheostomy, PEG and longer-term ventilation and support if patient does not show significant improvement in the next few days. He is not certain that she would want to proceed with the tracheostomy and PEG. He wishes to see how she does in the next few days and will make further decisions pending clinical course. Wants to continue maximized available medical treatment, monitoring course. He is open to ongoing discussion with providers as course evolves. * CODE STATUS: ALT code intubation only * SYMPTOMS: --Dyspnea-patient with long-standing COPD history. Not able to wean off ventilator currently requiring significant sedation for vent synchrony; possible may require tracheostomy if unable to wean off the ventilator, and goals are aggressive --Malnutrition-chronic, albumin 2.6. Patient now with OG tube in place; order to begin tube feeding. May require longer to learn feeding tube if unable to wean off ventilator, if goals aggressive * Palliative care will continue to follow during hospital course as condition evolves, to assist patient/decision-maker with understanding of medical conditions, weighing benefits/burdens of treatment options, for clarification of goals of treatment. Additionally will assist with any symptoms of palliative concern Time Spent Total Floor Time (mins): 70 (Chart review, PE, discussion with nursing, discussion with family at bedside) Thank you for the opportunity to participate in the care of Ms. Gould. Attestation To help prompt me to consider important information that might be impacting today's encounter and assessment, information from prior notes written by myself or my colleagues may have been "brought forward" into today's note. My signature on this note, however, is an attestation that I personally performed the exam, history, and/or decision-making noted today, and, unless otherwise indicated, the interactions with patient, family, and staff as well as the review of records all occurred today. I also attest that the listed assessment and stated plan reflect my best clinical judgment today based on the combination of historical information, prior notes, and today's exam/ interactions. When time spent is documented, it refers only to time spent today by the signer, or if indicated, combined time spent today by collaborating physician/nurse practitioner. Mouna Henson Aug 28, 2017 16:29
--- NOTE | 2017-08-28 17:37 | HHI.PR ---
Subjective Remarks 66 YOWF with COPD,Ch Leg wound, DM On Vent Sedated with Diprivan On Phenylepherine Put on PCV has wheezing Palliative care evaluating Objective Vital Signs Vital Signs Date Time Temp Pulse Resp B/P (MAP) Pulse Ox O2 Delivery O2 Flow Rate FiO2 08/28/17 16:37 96 28 08/28/17 16:00 96.8 82 12 114/82 (93) 100 08/28/17 16:00 30 08/28/17 14:13 100 30 08/28/17 12:00 97.2 84 16 92/59 (70) 100 08/28/17 12:00 30 08/28/17 12:00 82 88/58 08/28/17 11:04 100 30 08/28/17 09:08 99 72/50 08/28/17 08:00 30 08/28/17 08:00 97.8 122 21 158/110 (126) 100 08/28/17 07:25 100 30 08/28/17 06:00 84 08/28/17 04:01 100 30 08/28/17 04:00 30 08/28/17 04:00 98.9 96 30 143/101 (115) 100 08/28/17 04:00 102 08/28/17 02:00 89 08/28/17 00:00 98.9 80 25 110/85 (93) 100 08/28/17 00:00 30 08/28/17 00:00 85 08/27/17 23:49 100 30 08/27/17 22:00 85 08/27/17 20:00 98.7 92 20 120/86 (97) 100 08/27/17 20:00 92 08/27/17 20:00 30 08/27/17 19:12 100 30 08/27/17 18:00 104 I/O 08/27/17 08/27/17 08/27/17 08/28/17 08/28/17 08/28/17 07:00 15:00 23:00 07:00 15:00 23:00 Intake Total 910 ml 190 ml 30 ml Output Total 275 ml 225 ml 350 ml Balance -275 ml 910 ml -35 ml -320 ml IV Total 910 ml 100 ml Tube Irrigant 90 ml 30 ml Output Urine Total 275 ml 175 ml 350 ml Stool Total 0 ml Gastric Drainage Total 50 ml # Bowel Movements 0 0 0 Result Diagram: 08/28/17 0820 08/28/17 0505 Objective Remarks GENERAL:WBWN WF, On vent, sedated SKIN: Warm and dry. HEAD: Normocephalic. EYES: No scleral icterus. No injection or drainage. NECK: Supple, trachea midline. No JVD or lymphadenopathy. CARDIOVASCULAR: Regular rate and rhythm without murmurs, gallops, or rubs. RESPIRATORY: Breath sounds equal bilaterally. No accessory muscle use. GASTROINTESTINAL: Abdomen soft, non-tender, nondistended. MUSCULOSKELETAL: No cyanosis, or edema. BACK: Nontender without obvious deformity. No CVA tenderness. A/P Assessment and Plan IMPRESSION: 1. Chronic obstructive pulmonary disease exacerbation. 2. Bronchitis. 3. Right leg wound. 4. Chronic respiratory insufficiency 5. VDRF PLAN: Vent support Aerosol nebs IV Solumedrol Cont Abx Sedation with diprivan Phenylepherine to support BP DW , if not able to maintain volume, may need to paralysed At present tolerating PCV Sameer Villa MD Aug 28, 2017 17:37
[2017-08-28] MEDS: PHENYLEPHRINE INJ 80 MG in SODIUM CHLORID 0.9% 500 ML INJ 492 ML IV PRN (18:30)
[2017-08-28] MEDS: INSULIN DETEMIR 100 UNITS/ML VIAL SQ SCH (21:00)
[2017-08-29] VITALS (14 sets, daily range): BP systolic 101–141; BP diastolic 59–101; PULSE 76–115; RESP 12–13; TEMP 97.3–99; O2SAT 94–100
[2017-08-29] MEDS: methylPREDNISolone SOD SUCC 125 MG/2 ML VIAL IV PUSH SCH ×5 (00:20→23:14)
[2017-08-29] MEDS: PROPOFOL 1000 MG/100 ML INJ 100 ML IV PRN ×6 (01:50→23:14)
[2017-08-29] MEDS: RESP: ALBUTEROL 2.5 MG/IPRATROPIUM 0.5 MG NEB (SCH) NEB ×6 (03:12→23:13)
[2017-08-29 04:32] LABS: BICARBONATE 27.1 MEQ/L (21.0-32.0); CALCIUM 8.2 MG/DL (8.5-10.1); CREATININE 0.92 MG/DL (0.50-1.00)
[2017-08-29] MEDS: CHLORHEXIDINE 0.12% (ORAL KIT) 15 ML CUP MT SCH ×4 (08:00→20:00)
[2017-08-29] MEDS: BUDESONIDE-FORMOTEROL 80/4.5 MCG INHALER INH SCH ×2 (08:16→20:21)
[2017-08-29] MEDS: INSULIN ASPART SUPPLEMENTAL SCALE SQ SCH ×4 (09:00→21:00)
[2017-08-29] MEDS: FAMOTIDINE 20 MG TAB NG SCH ×2 (09:01→21:27)
[2017-08-29] MEDS: INSULIN DETEMIR 100 UNITS/ML VIAL SQ SCH ×2 (09:01→21:00)
[2017-08-29] MEDS: ALPRAZolam 0.25 MG TAB PO SCH ×3 (09:01→18:09)
[2017-08-29] MEDS: cefTRIAXone INJ 1,000 MG in SODIUM CHLORIDE 0.9% INJ 100 ML IV SCH (12:05)
[2017-08-29] MEDS: AZITHROMYCIN INJ 500 MG in SODIUM CHLOR 0.9% 250 ML INJ 250 ML IV SCH (13:14)
--- NOTE | 2017-08-29 13:22 | HHI.HCPN ---
Reason for visit a. To assist with evaluation and management of symptoms including: dyspnea b. To assist medical decision maker(s) with: better understanding of current medical conditions; weighing benefits/burdens of medical treatment options; making medical treatment decisions. Subjective/Interval History Patient seen today to follow-up on comfort, goals. NO significant changes, [facility]. On sedation, +diprivan 50 mcg/kg/min, + phenylephrine. H&H stable. BUN elevated though stable-- 50/ creatinine 0.92 Examined patient in room no visitors present. Sedation not lightened. She is nonresponsive to my exam. Multiple scattered skin tears and ecchymosis noted. Multiple dressings in place. Wheezing noted throughout lungs. . Family/friend interactions Call to , updated on current assessment, condition, tx in place, no significant changes. All questions answered. He has palliative contact information. Continue to monitor pt condition/clinical course, ongoing discussions. . Advance Directives Living Will: Never completed Health Care Surrogate: Copy in medical record Durable Power of Plater Apprentice: Never completed Objective Vital Signs Date Time Temp Pulse Resp B/P (MAP) Pulse Ox O2 Delivery O2 Flow Rate FiO2 08/29/17 11:02 96 30 08/29/17 09:15 101 150/85 08/29/17 08:00 97.3 98 12 141/101 (114) 100 08/29/17 08:00 28 08/29/17 07:43 96 28 08/29/17 06:00 102 08/29/17 04:00 84 08/29/17 04:00 97.7 84 12 132/97 (109) 100 08/29/17 04:00 28 08/29/17 03:13 98 28 08/29/17 02:00 82 08/29/17 00:00 28 08/29/17 00:00 98.0 76 12 116/89 (98) 100 08/29/17 00:00 76 08/28/17 23:50 97 28 08/28/17 22:00 78 08/28/17 20:05 98 28 08/28/17 20:00 76 08/28/17 20:00 97.9 76 12 117/87 (97) 98 08/28/17 20:00 28 08/28/17 18:30 87 105/65 08/28/17 16:37 96 28 08/28/17 16:00 96.8 82 12 114/82 (93) 100 08/28/17 16:00 30 08/28/17 14:13 100 30 Intake & Output 08/29/17 08/29/17 07:00 19:00 Intake Total 564 ml Output Total 350 ml Balance 214 ml IV Total 300 ml Tube Feeding 204 ml Tube Irrigant 60 ml Output Urine Total 350 ml # Bowel Movements 0 Physical Exam CONSTITUTIONAL/GENERAL: This is an adequately nourished patient, in no apparent distress, sedated on mechanical vent TUBES/LINES/DRAINS: Peripheral IV bilateral upper extremities, Schmidt catheter, ET tube, OG tube SKIN: No jaundice, rashes, or lesions. Multiple areas of ecchymoses scattered to bilateral upper and lower extremities, as well as several multiple small skin tears skin very thin/ chronic steroid use. Dressing right lower extremity covering most of lower leg clean and dry. Small dressing to right arm, left arm clean and dry. Skin warm and dry. Distal feet are cool to the touch. HEAD: Atraumatic. Normocephalic. EYES: Pupils equal and round and reactive. No scleral icterus. No injection or drainage. Fundi not examined. ENT: Nose without bleeding or purulent drainage. Unable to visualize oropharynx secondary ET tube, OG tube NECK: Trachea midline. Supple, nontender. No palpable thyroid enlargement or nodularity. CARDIOVASCULAR: Regular rate and rhythm without murmur. No JVD. Peripheral pulses symmetric-feet are cool pedal pulses faint/difficult to palpate. RESPIRATORY/CHEST: Symmetric, unlabored respirations via mechanical vent. Decreased air movement throughout, scattered wheezes. Breath sounds equal bilaterally. GASTROINTESTINAL: Abdomen soft, round, unable to determine tenderness, nondistended. No hepato-splenomegaly, or palpable masses. No guarding. Bowel sounds hypoactive. OG tube in place clamped. GENITOURINARY: Without palpable bladder distension. Schmidt catheter in place. MUSCULOSKELETAL: Extremities without clubbing, cyanosis, or edema. Multiple scattered ecchymoses and small skin tears. LYMPHATICS: No palpable cervical or supraclavicular adenopathy. NEUROLOGICAL: Sedated on mechanical vent. On to prevent 50 mics/kilogram/ minute. Does not arouse to exam no eye opening, follow commands. PSYCHIATRIC: Limited assessment due to clinical condition. No evident anxiety. Diagnostic Tests Laboratory Laboratory Tests Test 08/27/17 04:30 08/27/17 04:33 08/27/17 18:00 08/28/17 05:05 Blood Gas Puncture Site RT BRACHIAL LT RADIAL Blood Gas Patient Temperature 98.6 98.6 Blood Gas HCO3 27 mmol/L (22-26) 25 mmol/L (22-26) Blood Gas Base Excess 3.7 mmol/L (-2-2) 0.6 mmol/L (-2-2) Blood Gas Oxygen Saturation 95 % (90-100) 95 % (90-100) Arterial Blood pH 7.50 (7.380-7.420) 7.41 (7.380-7.420) Arterial Blood Partial Pressure CO2 35 mmHg (38-42) 39 mmHg (38-42) Arterial Blood Partial Pressure O2 89 mmHg (61-120) 102 mmHg (61-120) Arterial Blood Oxygen Content 13.0 Vol % (12.0-20.0) 13.3 Vol % (12.0-20.0) Arterial Blood Carboxyhemoglobin 1.7 % (0-4) 1.5 % (0-4) Arterial Blood Methemoglobin 1.1 % (0-2) 1.3 % (0-2) Blood Gas Hemoglobin 9.7 G/DL (12.0-16.0) 9.8 G/DL (12.0-16.0) Oxygen Delivery Device VENTILATOR VENTILATOR Blood Gas Ventilator Setting [facility]/16/400/5PEEP/ Blood Gas Inspired Oxygen 30 % 30 % Blood Urea Nitrogen 39 MG/DL (7-18) 55 MG/DL (7-18) Creatinine 0.95 MG/DL (0.50-1.00) 1.13 MG/DL (0.50-1.00) Random Glucose 138 MG/DL (74-106) 239 MG/DL (74-106) Calcium Level 8.5 MG/DL (8.5-10.1) 8.3 MG/DL (8.5-10.1) Sodium Level 140 MEQ/L (136-145) 140 MEQ/L (136-145) Potassium Level 4.7 MEQ/L (3.5-5.1) 5.1 MEQ/L (3.5-5.1) Chloride Level 103 MEQ/L (98-107) 103 MEQ/L (98-107) Carbon Dioxide Level 28.1 MEQ/L (21.0-32.0) 23.4 MEQ/L (21.0-32.0) Anion Gap 9 MEQ/L (5-15) 14 MEQ/L (5-15) Estimat Glomerular Filtration Rate 59 ML/MIN (>89) 48 ML/MIN (>89) White Blood Count 13.1 TH/MM3 (4.0-11.0) Red Blood Count 3.37 MIL/MM3 (4.00-5.30) Hemoglobin 9.8 GM/DL (11.6-15.3) Hematocrit 29.9 % (35.0-46.0) Mean Corpuscular Volume 88.9 FL (80.0-100.0) Mean Corpuscular Hemoglobin 29.1 PG (27.0-34.0) Mean Corpuscular Hemoglobin Concent 32.8 % (32.0-36.0) Red Cell Distribution Width 19.4 % (11.6-17.2) Platelet Count 193 TH/MM3 (150-450) Mean Platelet Volume 7.8 FL (7.0-11.0) Neutrophils (%) (Auto) 90.9 % (16.0-70.0) Lymphocytes (%) (Auto) 6.3 % (9.0-44.0) Monocytes (%) (Auto) 2.4 % (0.0-8.0) Eosinophils (%) (Auto) 0.1 % (0.0-4.0) Basophils (%) (Auto) 0.3 % (0.0-2.0) Neutrophils # (Auto) 11.9 TH/MM3 (1.8-7.7) Lymphocytes # (Auto) 0.8 TH/MM3 (1.0-4.8) Monocytes # (Auto) 0.3 TH/MM3 (0-0.9) Eosinophils # (Auto) 0.0 TH/MM3 (0-0.4) Basophils # (Auto) 0.0 TH/MM3 (0-0.2) CBC Comment AUTO DIFF Differential Total Cells Counted 100 Neutrophils % (Manual) 66 % (16-70) Band Neutrophils % 20 % (0-6) Lymphocytes % 7 % (9-44) Neutrophils # (Manual) 12.2 TH/MM3 (1.8-7.7) Metamyelocytes 3 % (0-1) Myelocytes 4 % (0-0) Nucleated Red Blood Cells 5 /100 WBC (0-0) Differential Comment FINAL DIFF MANUAL Platelet Estimate NORMAL (NORMAL) Platelet Morphology Comment NORMAL (NORMAL) Test 08/28/17 08:20 08/29/17 03:25 White Blood Count 12.5 TH/MM3 (4.0-11.0) Red Blood Count 3.57 MIL/MM3 (4.00-5.30) Hemoglobin 10.3 GM/DL (11.6-15.3) Hematocrit 31.5 % (35.0-46.0) Mean Corpuscular Volume 88.2 FL (80.0-100.0) Mean Corpuscular Hemoglobin 28.9 PG (27.0-34.0) Mean Corpuscular Hemoglobin Concent 32.7 % (32.0-36.0) Red Cell Distribution Width 19.2 % (11.6-17.2) Platelet Count 184 TH/MM3 (150-450) Mean Platelet Volume 8.3 FL (7.0-11.0) Neutrophils (%) (Auto) 92.9 % (16.0-70.0) Lymphocytes (%) (Auto) 4.8 % (9.0-44.0) Monocytes (%) (Auto) 2.0 % (0.0-8.0) Eosinophils (%) (Auto) 0.1 % (0.0-4.0) Basophils (%) (Auto) 0.2 % (0.0-2.0) Neutrophils # (Auto) 11.6 TH/MM3 (1.8-7.7) Lymphocytes # (Auto) 0.6 TH/MM3 (1.0-4.8) Monocytes # (Auto) 0.2 TH/MM3 (0-0.9) Eosinophils # (Auto) 0.0 TH/MM3 (0-0.4) Basophils # (Auto) 0.0 TH/MM3 (0-0.2) CBC Comment AUTO DIFF Differential Total Cells Counted 100 Neutrophils % (Manual) 77 % (16-70) Band Neutrophils % 10 % (0-6) Lymphocytes % 1 % (9-44) Monocytes % 4 % (0-8) Neutrophils # (Manual) 11.9 TH/MM3 (1.8-7.7) Metamyelocytes 5 % (0-1) Myelocytes 3 % (0-0) Nucleated Red Blood Cells 2 /100 WBC (0-0) Differential Comment FINAL DIFF MANUAL Toxic Granulation 1+ (NORMAL) Platelet Estimate NORMAL (NORMAL) Platelet Morphology Comment NORMAL (NORMAL) Ovalocytes 1+ (NORMAL) Blood Urea Nitrogen 50 MG/DL (7-18) Creatinine 0.92 MG/DL (0.50-1.00) Random Glucose 186 MG/DL (74-106) Calcium Level 8.2 MG/DL (8.5-10.1) Sodium Level 141 MEQ/L (136-145) Potassium Level 5.0 MEQ/L (3.5-5.1) Chloride Level 104 MEQ/L (98-107) Carbon Dioxide Level 27.1 MEQ/L (21.0-32.0) Anion Gap 10 MEQ/L (5-15) Estimat Glomerular Filtration Rate 61 ML/MIN (>89) B-Type Natriuretic Peptide 1388 PG/ML (0-100) Result Diagram: 08/28/17 0820 08/29/17 0325 Microbiology Microbiology Date/Time Source Procedure Growth Status 08/26/17 13:17 Sputum Endotracheal Gram Stain - Final Complete 08/26/17 13:17 Sputum Endotracheal Sputum Culture - Final HEAVY GROWTH NORMAL RESPIRATORY ELVIN Complete Procedures 08/26 intubated Assessment and Plan Disease Oriented Problem List: (1) Anxiety (2) Hyperglycemia (3) Open leg wound (4) COPD (chronic obstructive pulmonary disease) (5) Asthma (6) Acute hypoxemic respiratory failure Symptom Scale: (1) Dyspnea 0-10 Scale: Unable to quantify (2) Malnutrition 0-10 Scale: Unable to quantify Pertinent Non-Medical Issues 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 Originally from [place] , moved to this area 9 years ago. to her third in August 2016. Spiritual: Legal: Patient not able to participate due to clinical conditions. has been designated as healthcare surrogate. Ethical issues impacting care: No ethical issues identified. Important Contacts [facility] [employer] . Prognosis This patient was admitted for dyspnea. She has had 2 recent prolonged hospitalizations. She has had significant physical decline, debility. She is currently unable to wean off of mechanical vent due to end-stage COPD, bronchospasm. She would be appropriate for hospice if goals compatible. Code Status: Alternative Code Plan * Legal decision maker:Patient currently on mechanical vent unable to participate in decision-making. Not clear if she will regain ability to participate. Krishan is designated as healthcare surrogate. * Goals: 08/28/17 Patient appropriately tearful at times. He appears to have reasonable understanding of conditions and possible trajectories going forward. He understands risks of complications going forward. He understands the longer patient remains hospitalized more debilitated and weak she will become, and more likely she would require SNF and possible long-term placement. We did review possibility of tracheostomy, PEG and longer-term ventilation and support if patient does not show significant improvement in the next few days. He is not certain that she would want to proceed with the tracheostomy and PEG. He wishes to see how she does in the next few days and will make further decisions pending clinical course. Wants to continue maximized available medical treatment, monitoring course. He is open to ongoing discussion with providers as course evolves. 08/29 no changes, will cont to monitor pt course, open to ongoing discussions * CODE STATUS: ALT code intubation only * SYMPTOMS: --Dyspnea-patient with long-standing COPD history. Not able to wean off ventilator currently requiring significant sedation for vent synchrony; possible may require tracheostomy if unable to wean off the ventilator, and goals are aggressive --Malnutrition-chronic, albumin 2.6. Patient now with OG tube in place; order to begin tube feeding. May require longer term feeding tube if unable to wean off ventilator, if goals aggressive * Palliative care will continue to follow during hospital course as condition evolves, to assist patient/decision-maker with understanding of medical conditions, weighing benefits/burdens of treatment options, for clarification of goals of treatment. Additionally will assist with any symptoms of palliative concern Attestation To help prompt me to consider important information that might be impacting today's encounter and assessment, information from prior notes written by myself or my colleagues may have been "brought forward" into today's note. My signature on this note, however, is an attestation that I personally performed the exam, history, and/or decision-making noted today, and, unless otherwise indicated, the interactions with patient, family, and staff as well as the review of records all occurred today. I also attest that the listed assessment and stated plan reflect my best clinical judgment today based on the combination of historical information, prior notes, and today's exam/ interactions. When time spent is documented, it refers only to time spent today by the signer, or if indicated, combined time spent today by collaborating physician/nurse practitioner. Mouna Henson Aug 29, 2017 13:22
[2017-08-29] MEDS: ENOXAPARIN SODIUM 40 MG/0.4 ML SYRINGE SQ SCH (14:33)
--- NOTE | 2017-08-29 16:32 | HHI.CCPN ---
Subjective Remarks/Hospital Course The patient was admitted on 08/23 from [facility], with complaints cough and shortness of breath over the past 3 days, and a 101 low-grade fever. The patient patient had reported at that time a productive cough, yellowish sputum. The patient's has a history of severe COPD and upon presentation to the ED ,she stated that she does not use oxygen at home. She was admitted under [facility] Dr. Vogt. This a.m., the patient was noted to have extreme respiratory distress, sinus tachycardia. The patient had received methylprednisolone a.m. dose and DuoNeb bronchodilator treatment, and BiPAP with no improvement. Halicat was initiated, upon my arrival the patient was noted to be tachypneic ,significantly tachycardic and hypertensive. Discussion with Dr. Vogt, the patient and were informed of the situation, she requested to be intubated at this time. The patient was emergently intubated uneventfully, the patient was transferred to ICU. 08/27: Persistent severe bronchospasm. We are able to blow off CO2 but she has severe bronchospasm still. I welcome input from Dr. Villa. 08/28: CXR clear now, hyperinflated. Airway pressures improving. Tight bronchospasm persists. 08/29: no improvements. remains sedated on full vent support. Objective Vital Signs Date Time Temp Pulse Resp B/P (MAP) Pulse Ox O2 Delivery O2 Flow Rate FiO2 08/29/17 14:00 114 79/51 08/29/17 12:00 97.7 13 95 08/29/17 12:00 28 08/26/17 08:31 Nasal Cannula 3.00 Intake and Output 08/29/17 08/29/17 08/30/17 08:00 16:00 00:00 Intake Total 464 ml 100 ml Output Total 350 ml Balance 114 ml 100 ml Result Diagram: 08/28/17 0820 08/29/17 0325 Imaging Last Impressions Chest X-Ray 08/26/17 0000 Signed Impressions: Service Date/Time: Saturday, August 26, 2017 09:39 - CONCLUSION: Interval placement of an endotracheal tube which appears appropriately positioned. No evidence of acute cardiopulmonary disease. Jennifer Holcomb MD Objective Remarks GENERAL: This is an obese female in significant respiratory distress SKIN: Warm and dry. Ecchymotic bruising bilateral upper and lower extremity. Fungal infection noted groin and breasts. HEAD: Atraumatic. Normocephalic. EYES: Pupils equal and round. No scleral icterus. No injection or drainage. ENT: No nasal bleeding or discharge. Mucous membranes pink and moist. NECK: Trachea midline. Orally intubated. CARDIOVASCULAR: Tachycardic rate, regular rhythm. Telemetry sinus tach RESPIRATORY: Tachypneic with accessory muscle use. Breath sounds distant, poor air movement. GASTROINTESTINAL: Abdomen soft, non-tender, obese ,nondistended. No guarding. Bowel sounds active MUSCULOSKELETAL: Extremities without clubbing, cyanosis, or edema. No obvious deformities. NEUROLOGICAL: Awake and alert. RASS -2. No gross focal/sensory deficits. Follows commands in all 4 extremities. A/P Problem List: (1) Tachycardia ICD Code: R00.0 - Tachycardia, unspecified Status: Chronic (2) Hyperglycemia ICD Code: R73.9 - Hyperglycemia, unspecified Status: Chronic (3) Open leg wound ICD Code: S81.809A - Unspecified open wound, unspecified lower leg, initial encounter Status: Chronic (4) COPD (chronic obstructive pulmonary disease) ICD Code: J44.9 - Chronic obstructive pulmonary disease, unspecified Status: Acute (5) Acute hypercapnic respiratory failure ICD Code: J96.02 - Acute respiratory failure with hypercapnia (6) Acute hypoxemic respiratory failure ICD Code: J96.01 - Acute respiratory failure with hypoxia Assessment and Plan Assessment This is a 66 year old female with a medical history significant for COPD exacerbation tobacco use disorder, asthma, with noted severe COPD with FEV1 of predicted 20%. The patient and are requesting intubation for acute hypercapnic and hypoxemic respiratory failure. Plan Plan by systems: Neurologic: Neuro checks per ICU protocol Daily sedation vacation Propofol infusion to maintain ventilator synchrony Tylenol for fever and/or pain Respiratory: Acute hypoxemic and hypercapnic respiratory failure Probable pneumonia Severe COPD with FEV1 less than 20% COPD exacerbation Asthma Tobacco use disorder Maintain O2 saturation greater than 92% 4-emergent intubation 7.5 ETT at 21 cm at the lip. Multi-carious dentition. Noted dentition intact post intubation ABG postintubation 7.4 /545/27/3 0.4 on FiO2 1.0. Continue to wean to FiO2 of 0.30 Methylprednisolone 60 mg every 6 hours, home meds steroid dependency Pulmonology following Dr. Allen Moraes nebs every 6 hours scheduled every 2 hours as needed. Though doubtful a contributor, will stop lopressor. Cardiovascular: History of atrial fibrillation Obtain BNP Maintain MAP greater than 65 Telemetry sinus tach Renal: History of nephrolithiasis Maintain Schmidt catheter -- Strict I/Os FEN/GI: Hypoalbuminemia Normal saline at 42cc/hr Dietary consult for tube feeds Bowel regimen Heme/ID: Probable pneumonia 08/23- Legionella and strep urine antigens negative 08/23-blood culture NGTD 08/23 influenza nasal wash negative Obtain serial lactate Obtain CBC Endocrine: Hyperglycemia of critical illness Glucose monitoring per ICU protocol, low-dose regimen -- SSI Musculoskeletal: Wound care consult for chronic leg wound Prophylaxis: GI Prophylaxis Famotidine DVT Prophylaxis -- SCDs Heparin Lines: PIV's x 2 Dispo: Overall impression: Patient is critically ill with severe bronchospasm despite aggressive steroid and dilator therapy. Remain unable to wean ventilator. Sputum benign. Needs continued followup with [facility] service. Problem Qualifiers (1) COPD (chronic obstructive pulmonary disease): Qualified Codes: J44.1 - Chronic obstructive pulmonary disease with (acute) exacerbation Teja Reyes MD Aug 29, 2017 16:32
--- NOTE | 2017-08-29 16:55 | PD.WCN.NOT ---
Wound Consult Description: Received wound management consult for RLE from Yomaira ARVIZU Communicated with: RN Brittayn ISC, RN Robi ISC Recommendation: Please leave dressing in place for 6 days. Dressing should be changed on Monday09/04/2017. if still here Change dressing as follows: 1.Cleanse wound to RLE with normal saline and pat dry. 2.Apply Puracol Collagen dressing just to wound bed. 3.Secure dressing with ABD pads, rolled gauze and tape. Change every 5 days or as needed for saturation or dislodgement. Additional Information: Patient seen on for follow up and dressing change of RLE. Patient assessed and dressing change completed with the assistance of Telma FIERRO, Robi DEAL ISC, Brittany DEAL ISC and business writer. Removed dressings in place to RLE to reveal wound that has improved from previous assessment. Wound presents with 100 % pink tissue and appears smaller than previously noted. Wound was cleansed with normal saline and patted dry. Applied Puracol collagen dressings in place.Secured Puracol with ABD pads, gauze pads, rolled gauze and tape.Generalized weeping and edema is noted. Did not apply Vaseline gauze over Puracol, due to generalized weeping. Leonora Crespo [facility] Aug 29, 2017 16:55
--- NOTE | 2017-08-29 20:29 | HHI.PR ---
Subjective Remarks 66 YOWF with COPD,Ch Leg wound, DM On Vent Sedated with Diprivan On Phenylepherine Put on PCV Wheezing better On PCV, Fi02 30% Objective Vital Signs Vital Signs Date Time Temp Pulse Resp B/P (MAP) Pulse Ox O2 Delivery O2 Flow Rate FiO2 08/29/17 19:42 96 30 08/29/17 18:00 98 87/53 08/29/17 16:00 28 08/29/17 16:00 97.9 100 13 102/66 (78) 94 08/29/17 14:00 114 79/51 08/29/17 12:05 115 129/90 08/29/17 12:00 97.7 115 13 129/90 (103) 95 08/29/17 12:00 28 08/29/17 11:02 96 30 08/29/17 09:15 101 150/85 08/29/17 08:00 97.3 98 12 141/101 (114) 100 08/29/17 08:00 28 08/29/17 07:43 96 28 08/29/17 06:00 102 08/29/17 04:00 84 08/29/17 04:00 97.7 84 12 132/97 (109) 100 08/29/17 04:00 28 08/29/17 03:13 98 28 08/29/17 02:00 82 08/29/17 00:00 28 08/29/17 00:00 98.0 76 12 116/89 (98) 100 08/29/17 00:00 76 08/28/17 23:50 97 28 08/28/17 22:00 78 I/O 08/28/17 08/28/17 08/28/17 08/29/17 08/29/17 08/29/17 07:00 15:00 23:00 07:00 15:00 23:00 Intake Total 30 ml 100 ml 1110 ml 464 ml 450 ml 484 ml Output Total 350 ml 350 ml 350 ml 375 ml Balance -320 ml 100 ml 760 ml 114 ml 450 ml 109 ml IV Total 100 ml 1050 ml 200 ml 450 ml Tube Feeding 204 ml 484 ml Tube Irrigant 30 ml 60 ml 60 ml Output Urine Total 350 ml 350 ml 350 ml 375 ml Gastric Drainage Total 0 ml # Bowel Movements 0 0 0 Result Diagram: 08/28/17 0820 08/29/17 0325 Objective Remarks GENERAL:WBWN WF, On vent, sedated SKIN: Warm and dry. HEAD: Normocephalic. EYES: No scleral icterus. No injection or drainage. NECK: Supple, trachea midline. No JVD or lymphadenopathy. CARDIOVASCULAR: Regular rate and rhythm without murmurs, gallops, or rubs. RESPIRATORY: Breath sounds equal bilaterally. No accessory muscle use. GASTROINTESTINAL: Abdomen soft, non-tender, nondistended. MUSCULOSKELETAL: No cyanosis, or edema. BACK: Nontender without obvious deformity. No CVA tenderness. A/P Assessment and Plan IMPRESSION: 1. Chronic obstructive pulmonary disease exacerbation. 2. Bronchitis. 3. Right leg wound. 4. Chronic respiratory insufficiency 5. VDRF PLAN: Vent support Aerosol nebs IV Solumedrol Cont Abx Sedation with diprivan Phenylepherine to support BP If cont to improve, will try CPAP in AM Sameer Villa MD Aug 29, 2017 20:29
[2017-08-30] VITALS (13 sets, daily range): BP systolic 89–137; BP diastolic 50–94; PULSE 128–148; RESP 12; TEMP 98.4–98.9; O2SAT 94–96
[2017-08-30] MEDS: ALPRAZolam 0.25 MG TAB PO PRN (02:24)
[2017-08-30] MEDS: RESP: ALBUTEROL 2.5 MG/IPRATROPIUM 0.5 MG NEB (SCH) NEB ×4 (02:56→14:58)
[2017-08-30] MEDS: PROPOFOL 1000 MG/100 ML INJ 100 ML IV PRN (04:26)
[2017-08-30 05:28] LABS: HEMATOCRIT 35.6 % (35.0-46.0); HEMOGLOBIN 11.8 GM/DL (11.6-15.3); MEAN CELL VOLUME 89.1 FL (80.0-100.0); MEAN CORPUSCULAR HEMOGLOBIN 29.5 PG (27.0-34.0); MEAN CORPUSCULAR HGB CONC 33.1 % (32.0-36.0); MEAN PLATELET VOLUME 8.6 FL (7.0-11.0); PLATELET COUNT 265 TH/MM3 (150-450); RED CELL DISTRIBUTION WIDTH 18.6 % (11.6-17.2); WHITE BLOOD COUNT 25.4 TH/MM3 (4.0-11.0)
[2017-08-30 05:57] LABS: BICARBONATE 24.8 MEQ/L (21.0-32.0); CALCIUM 7.9 MG/DL (8.5-10.1); CREATININE 0.89 MG/DL (0.50-1.00)
[2017-08-30] MEDS: RESP: ALBUTEROL 2.5 MG/IPRATROPIUM 0.5 MG NEB (PRN) NEB (06:20)
[2017-08-30] MEDS: methylPREDNISolone SOD SUCC 125 MG/2 ML VIAL IV PUSH SCH ×3 (06:22→18:00)
[2017-08-30] MEDS ORDERED: METOPROLOL TARTRATE 5 MG/5 ML VIAL IV PUSH ONE (06:45)
[2017-08-30] MEDS ORDERED: FUROSEMIDE 40 MG/4 ML VIAL IV PUSH ONE (06:45)
[2017-08-30] MEDS ORDERED: MAGNESIUM SULFATE 1 GM PREMIX 100 ML IV SCH (06:45)
[2017-08-30] MEDS: INSULIN ASPART SUPPLEMENTAL SCALE SQ SCH ×3 (08:00→17:00)
[2017-08-30] MEDS: CHLORHEXIDINE 0.12% (ORAL KIT) 15 ML CUP MT SCH ×2 (08:00)
[2017-08-30] MEDS: INSULIN DETEMIR 100 UNITS/ML VIAL SQ SCH (09:00)
[2017-08-30] MEDS: ALPRAZolam 0.25 MG TAB PO SCH ×2 (09:00→13:00)
[2017-08-30] MEDS: FAMOTIDINE 20 MG TAB NG SCH (09:00)
[2017-08-30] MEDS: BUDESONIDE-FORMOTEROL 80/4.5 MCG INHALER INH SCH (09:00)
--- NOTE | 2017-08-30 10:10 | HHI.CCPN ---
Subjective Remarks/Hospital Course The patient was admitted on 08/23 from [facility], with complaints cough and shortness of breath over the past 3 days, and a 101 low-grade fever. The patient patient had reported at that time a productive cough, yellowish sputum. The patient's has a history of severe COPD and upon presentation to the ED ,she stated that she does not use oxygen at home. She was admitted under [facility] Dr. Vogt. This a.m., the patient was noted to have extreme respiratory distress, sinus tachycardia. The patient had received methylprednisolone a.m. dose and DuoNeb bronchodilator treatment, and BiPAP with no improvement. Halicat was initiated, upon my arrival the patient was noted to be tachypneic ,significantly tachycardic and hypertensive. Discussion with Dr. Vogt, the patient and were informed of the situation, she requested to be intubated at this time. The patient was emergently intubated uneventfully, the patient was transferred to ICU. 08/27: Persistent severe bronchospasm. We are able to blow off CO2 but she has severe bronchospasm still. I welcome input from Dr. Villa. 08/28: CXR clear now, hyperinflated. Airway pressures improving. Tight bronchospasm persists. 08/29: no improvements. remains sedated on full vent support. 08/30: more tachycardic today. wbc uptrending, but afebrile. BNP severely elevated. no overall improvements. Objective Vital Signs Date Time Temp Pulse Resp B/P (MAP) Pulse Ox O2 Delivery O2 Flow Rate FiO2 08/30/17 08:08 94 30 08/30/17 06:00 136 08/30/17 04:00 98.9 12 136/80 (98) 08/26/17 08:31 Nasal Cannula 3.00 Intake and Output 08/30/17 08/30/17 08/31/17 08:00 16:00 00:00 Intake Total 650 ml Output Total 400 ml Balance 250 ml Result Diagram: 08/30/17 0445 08/30/17 0445 Imaging Last Impressions Chest X-Ray 08/26/17 0000 Signed Impressions: Service Date/Time: Saturday, August 26, 2017 09:39 - CONCLUSION: Interval placement of an endotracheal tube which appears appropriately positioned. No evidence of acute cardiopulmonary disease. Jennifer Holcomb MD Objective Remarks GENERAL: This is an obese female in significant respiratory distress SKIN: Warm and dry. Ecchymotic bruising bilateral upper and lower extremity. Fungal infection noted groin and breasts. HEAD: Atraumatic. Normocephalic. EYES: Pupils equal and round. No scleral icterus. No injection or drainage. ENT: No nasal bleeding or discharge. Mucous membranes pink and moist. NECK: Trachea midline. Orally intubated. CARDIOVASCULAR: Tachycardic rate, regular rhythm. Telemetry sinus tach RESPIRATORY: Tachypneic with accessory muscle use. Breath sounds distant, poor air movement. GASTROINTESTINAL: Abdomen soft, non-tender, obese ,nondistended. No guarding. Bowel sounds active MUSCULOSKELETAL: Extremities without clubbing, cyanosis, or edema. No obvious deformities. NEUROLOGICAL: Awake and alert. RASS -2. No gross focal/sensory deficits. Follows commands in all 4 extremities. A/P Problem List: (1) Tachycardia ICD Code: R00.0 - Tachycardia, unspecified Status: Chronic (2) Hyperglycemia ICD Code: R73.9 - Hyperglycemia, unspecified Status: Chronic (3) Open leg wound ICD Code: S81.809A - Unspecified open wound, unspecified lower leg, initial encounter Status: Chronic (4) COPD (chronic obstructive pulmonary disease) ICD Code: J44.9 - Chronic obstructive pulmonary disease, unspecified Status: Acute (5) Acute hypercapnic respiratory failure ICD Code: J96.02 - Acute respiratory failure with hypercapnia (6) Acute hypoxemic respiratory failure ICD Code: J96.01 - Acute respiratory failure with hypoxia Assessment and Plan Assessment This is a 66 year old female with a medical history significant for COPD exacerbation tobacco use disorder, asthma, with noted severe COPD with FEV1 of predicted 20%. The patient and are requesting intubation for acute hypercapnic and hypoxemic respiratory failure. very unlikely to survive this illness. will continue forced diuresis and HR control. daily attempts at separation from mechanical ventilation have remained unsuccessful. poor prognosis. Plan Plan by systems: Neurologic: Neuro checks per ICU protocol Daily sedation vacation Propofol infusion to maintain ventilator synchrony Tylenol for fever and/or pain Respiratory: Acute hypoxemic and hypercapnic respiratory failure Probable pneumonia Severe COPD with FEV1 less than 20% COPD exacerbation Asthma Tobacco use disorder Maintain O2 saturation greater than 92% 08/26-emergent intubation 7.5 ETT at 21 cm at the lip. Multi-carious dentition. Noted dentition intact post intubation ABG postintubation 7.4 /545/27/3 0.4 on FiO2 1.0. Continue to wean to FiO2 of 0.30 Methylprednisolone 60 mg every 6 hours, home meds steroid dependency Pulmonology following Dr. Allen Moraes nebs every 6 hours scheduled every 2 hours as needed. Cardiovascular: History of atrial fibrillation Tachycardia Obtain BNP Maintain MAP greater than 65 Telemetry sinus tach restart lopressor. Renal: History of nephrolithiasis d/c stoddard catheter. -- Strict I/Os FEN/GI: Hypoalbuminemia Normal saline at 42cc/hr Dietary consult for tube feeds Bowel regimen Heme/ID: Probable pneumonia 08/23- Legionella and strep urine antigens negative 08/23-blood culture NGTD 08/23 influenza nasal wash negative Obtain serial lactate Obtain CBC Endocrine: Hyperglycemia of critical illness Glucose monitoring per ICU protocol, low-dose regimen -- SSI Musculoskeletal: Wound care consult for chronic leg wound Prophylaxis: GI Prophylaxis Famotidine DVT Prophylaxis -- SCDs Heparin Lines: PIV's x 2 Dispo: Overall impression: Patient is critically ill with severe bronchospasm despite aggressive steroid and dilator therapy. Remain unable to wean ventilator. Sputum benign. Needs continued followup with [facility]. Problem Qualifiers (1) COPD (chronic obstructive pulmonary disease): Qualified Codes: J44.1 - Chronic obstructive pulmonary disease with (acute) exacerbation Teja Reyes MD Aug 30, 2017 10:10
[2017-08-30] MEDS: METOPROLOL TARTRATE 25 MG TAB PO SCH ×2 (12:00→18:00)
[2017-08-30] MEDS: cefTRIAXone INJ 1,000 MG in SODIUM CHLORIDE 0.9% INJ 100 ML IV SCH (12:00)
[2017-08-30] MEDS: AZITHROMYCIN INJ 500 MG in SODIUM CHLOR 0.9% 250 ML INJ 250 ML IV SCH (12:00)
[2017-08-30] MEDS: ENOXAPARIN SODIUM 40 MG/0.4 ML SYRINGE SQ SCH (14:00)
--- NOTE | 2017-08-30 16:59 | HHI.HCPN ---
Reason for visit a. To assist with evaluation and management of symptoms including: dyspnea b. To assist medical decision maker(s) with: better understanding of current medical conditions; weighing benefits/burdens of medical treatment options; making medical treatment decisions. Subjective/Interval History Patient seen today to follow-up on comfort, goals. call from before my arrival to pt unit requesting update, advise would call back once I have seen pt. Remains on mech vent, not able to wean per critical care. + diprivan for sedation 45 mcg/kg/min. Pressor has been weaned off today. Tachycardic all day per nursing, 140s. has administered metoprolol without effect. WBC elevated 25.4, double in the past couple of days. Afebrile. KCl at 5.6. Received Lasix earlier today. BNP elevated 1388. Examined patient in room no visitors present. Sedation not lightened. She is nonresponsive to my exam. Multiple scattered skin tears and ecchymosis noted. Multiple dressings in place. Significantly decreased air movement throughout lungs. Following exam call back to patient . Provided review of most recent diagnostics, labs, vent settings, current clinical assessment. He tells me that he has been speaking with the patient's family over the past few days and again reviewing her living will documents feels like she would not want to continue on mechanical ventilation and artificial measures. He tells me that she has been adamant about not wanting to prolong suffering, both to him and her family and after his several conversations with family and various providers he feels that he is at this point prolonging her suffering. He feels like he has not seen any significant improvements and he would not want to continue to potentially prolong suffering without a good chance of her having meaningful recovery after this. He requests to remove life support as soon as possible he will be here today around 5. Review of anticipatory guidance exhibits etc. He indicates that he does not want to be present he does not want to see her he cannot be present when she passes he wishes to sign the exhibits and the nurses keep him updated. I did gently explore hospice and possible patient could be placed in a care center if she were to survive beyond a day or so he indicates he is open to talking more about that more tomorrow but for now just wants to transition to comfort and see what happens. Called to Dr. Mead critical care attending, updated. Exhibits B,C to be signed. Updated primary nurse. Comfort orders for pre-withdrawal, time of withdrawal and post withdrawal to be entered at time of arrival to sign exhibits. Patient [id number] met with him review of conditions treatments in place and treatment options going forward. He affirms his wish to remove the ventilator and transition to comfort focus. Exhibits signed and placed in chart. Comfort orders entered for pre-withdrawal, time of withdrawal and post withdrawal. . Family/friend interactions *See above Advance Directives Living Will: Never completed Health Care Surrogate: Copy in medical record Durable Power of Algology Teacher: Never completed Objective Vital Signs Date Time Temp Pulse Resp B/P (MAP) Pulse Ox O2 Delivery O2 Flow Rate FiO2 08/30/17 14:59 94 30 08/30/17 12:00 30 08/30/17 12:00 132 08/30/17 11:36 95 30 08/30/17 10:00 132 08/30/17 08:08 94 30 08/30/17 08:00 132 08/30/17 06:00 136 08/30/17 04:00 98.9 132 12 136/80 (98) 96 08/30/17 04:00 30 08/30/17 04:00 132 08/30/17 02:56 95 30 08/30/17 02:00 130 08/30/17 00:00 98.4 128 12 137/94 (108) 95 08/30/17 00:00 128 08/30/17 00:00 28 08/29/17 23:13 100 30 08/29/17 22:00 82 08/29/17 20:00 99.0 88 12 101/59 (73) 100 08/29/17 20:00 28 08/29/17 20:00 88 08/29/17 19:42 96 30 08/29/17 18:00 98 87/53 Intake & Output 08/30/17 08/30/17 07:00 19:00 Intake Total 650 ml Output Total 400 ml Balance 250 ml Tube Feeding 650 ml Output Urine Total 400 ml # Bowel Movements 0 Physical Exam CONSTITUTIONAL/GENERAL: This is an adequately nourished patient, in no apparent distress, sedated on mechanical vent TUBES/LINES/DRAINS: Peripheral IV bilateral upper extremities, Schmidt catheter, ET tube, OG tube SKIN: No jaundice, rashes, or lesions. Multiple areas of ecchymoses scattered to bilateral upper and lower extremities, as well as several multiple small skin tears skin very thin/ chronic steroid use. Dressing right lower extremity covering most of lower leg clean and dry. Small dressing to right arm, left arm clean and dry. Skin warm and dry. Distal feet are cool to the touch. HEAD: Atraumatic. Normocephalic. EYES: Pupils equal and round and reactive. No scleral icterus. No injection or drainage. Fundi not examined. ENT: Nose without bleeding or purulent drainage. Unable to visualize oropharynx secondary ET tube, OG tube NECK: Trachea midline. Supple, nontender. No palpable thyroid enlargement or nodularity. CARDIOVASCULAR: Regular rate and rhythm without murmur. No JVD. Peripheral pulses symmetric-feet are cool pedal pulses faint/difficult to palpate. RESPIRATORY/CHEST: Symmetric, unlabored respirations via mechanical vent. Decreased air movement throughout, scattered wheezes. Breath sounds equal bilaterally. GASTROINTESTINAL: Abdomen soft, round, unable to determine tenderness, nondistended. No hepato-splenomegaly, or palpable masses. No guarding. Bowel sounds hypoactive. OG tube in place clamped. GENITOURINARY: Without palpable bladder distension. Schmidt catheter in place. MUSCULOSKELETAL: Extremities without clubbing, cyanosis, or edema. Multiple scattered ecchymoses and small skin tears. LYMPHATICS: No palpable cervical or supraclavicular adenopathy. NEUROLOGICAL: Sedated on mechanical vent. On to prevent 50 mics/kilogram/ minute. Does not arouse to exam no eye opening, follow commands. PSYCHIATRIC: Limited assessment due to clinical condition. No evident anxiety. Diagnostic Tests Laboratory Laboratory Tests Test 08/27/17 18:00 08/28/17 05:05 08/28/17 08:20 08/29/17 03:25 Blood Gas Puncture Site LT RADIAL Blood Gas Patient Temperature 98.6 Blood Gas HCO3 25 mmol/L (22-26) Blood Gas Base Excess 0.6 mmol/L (-2-2) Blood Gas Oxygen Saturation 95 % (90-100) Arterial Blood pH 7.41 (7.380-7.420) Arterial Blood Partial Pressure CO2 39 mmHg (38-42) Arterial Blood Partial Pressure O2 102 mmHg (61-120) Arterial Blood Oxygen Content 13.3 Vol % (12.0-20.0) Arterial Blood Carboxyhemoglobin 1.5 % (0-4) Arterial Blood Methemoglobin 1.3 % (0-2) Blood Gas Hemoglobin 9.8 G/DL (12.0-16.0) Oxygen Delivery Device VENTILATOR Blood Gas Ventilator Setting Blood Gas Inspired Oxygen 30 % Blood Urea Nitrogen 55 MG/DL (7-18) 50 MG/DL (7-18) Creatinine 1.13 MG/DL (0.50-1.00) 0.92 MG/DL (0.50-1.00) Random Glucose 239 MG/DL (74-106) 186 MG/DL (74-106) Calcium Level 8.3 MG/DL (8.5-10.1) 8.2 MG/DL (8.5-10.1) Sodium Level 140 MEQ/L (136-145) 141 MEQ/L (136-145) Potassium Level 5.1 MEQ/L (3.5-5.1) 5.0 MEQ/L (3.5-5.1) Chloride Level 103 MEQ/L (98-107) 104 MEQ/L (98-107) Carbon Dioxide Level 23.4 MEQ/L (21.0-32.0) 27.1 MEQ/L (21.0-32.0) Anion Gap 14 MEQ/L (5-15) 10 MEQ/L (5-15) Estimat Glomerular Filtration Rate 48 ML/MIN (>89) 61 ML/MIN (>89) White Blood Count 12.5 TH/MM3 (4.0-11.0) Red Blood Count 3.57 MIL/MM3 (4.00-5.30) Hemoglobin 10.3 GM/DL (11.6-15.3) Hematocrit 31.5 % (35.0-46.0) Mean Corpuscular Volume 88.2 FL (80.0-100.0) Mean Corpuscular Hemoglobin 28.9 PG (27.0-34.0) Mean Corpuscular Hemoglobin Concent 32.7 % (32.0-36.0) Red Cell Distribution Width 19.2 % (11.6-17.2) Platelet Count 184 TH/MM3 (150-450) Mean Platelet Volume 8.3 FL (7.0-11.0) Neutrophils (%) (Auto) 92.9 % (16.0-70.0) Lymphocytes (%) (Auto) 4.8 % (9.0-44.0) Monocytes (%) (Auto) 2.0 % (0.0-8.0) Eosinophils (%) (Auto) 0.1 % (0.0-4.0) Basophils (%) (Auto) 0.2 % (0.0-2.0) Neutrophils # (Auto) 11.6 TH/MM3 (1.8-7.7) Lymphocytes # (Auto) 0.6 TH/MM3 (1.0-4.8) Monocytes # (Auto) 0.2 TH/MM3 (0-0.9) Eosinophils # (Auto) 0.0 TH/MM3 (0-0.4) Basophils # (Auto) 0.0 TH/MM3 (0-0.2) CBC Comment AUTO DIFF Differential Total Cells Counted 100 Neutrophils % (Manual) 77 % (16-70) Band Neutrophils % 10 % (0-6) Lymphocytes % 1 % (9-44) Monocytes % 4 % (0-8) Neutrophils # (Manual) 11.9 TH/MM3 (1.8-7.7) Metamyelocytes 5 % (0-1) Myelocytes 3 % (0-0) Nucleated Red Blood Cells 2 /100 WBC (0-0) Differential Comment FINAL DIFF MANUAL Toxic Granulation 1+ (NORMAL) Platelet Estimate NORMAL (NORMAL) Platelet Morphology Comment NORMAL (NORMAL) Ovalocytes 1+ (NORMAL) B-Type Natriuretic Peptide 1388 PG/ML (0-100) Test 08/30/17 04:45 White Blood Count 25.4 TH/MM3 (4.0-11.0) Red Blood Count 4.00 MIL/MM3 (4.00-5.30) Hemoglobin 11.8 GM/DL (11.6-15.3) Hematocrit 35.6 % (35.0-46.0) Mean Corpuscular Volume 89.1 FL (80.0-100.0) Mean Corpuscular Hemoglobin 29.5 PG (27.0-34.0) Mean Corpuscular Hemoglobin Concent 33.1 % (32.0-36.0) Red Cell Distribution Width 18.6 % (11.6-17.2) Platelet Count 265 TH/MM3 (150-450) Mean Platelet Volume 8.6 FL (7.0-11.0) Blood Urea Nitrogen 51 MG/DL (7-18) Creatinine 0.89 MG/DL (0.50-1.00) Random Glucose 306 MG/DL (74-106) Calcium Level 7.9 MG/DL (8.5-10.1) Sodium Level 139 MEQ/L (136-145) Potassium Level 5.6 MEQ/L (3.5-5.1) Chloride Level 107 MEQ/L (98-107) Carbon Dioxide Level 24.8 MEQ/L (21.0-32.0) Anion Gap 7 MEQ/L (5-15) Estimat Glomerular Filtration Rate 63 ML/MIN (>89) Result Diagram: 08/30/17 0445 08/30/17 044 Imaging Last Impressions Chest X-Ray 08/28/17 0400 Signed Impressions: Service Date/Time: Monday, August 28, 2017 04:36 - CONCLUSION: Minimal left basilar density, likely atelectasis. 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 Originally from [place] , moved to this area 9 years ago. to her third in August 2016. Spiritual: Legal: Patient not able to participate due to clinical conditions. has been designated as healthcare surrogate. Ethical issues impacting care: No ethical issues identified. Important Contacts [employer] . Prognosis This patient was admitted for dyspnea. She has had 2 recent prolonged hospitalizations. She has had significant physical decline, debility. She is currently unable to wean off of mechanical vent due to end-stage COPD, bronchospasm. She would be appropriate for hospice if goals compatible. Code Status: Alternative Code Plan * Legal decision maker:Patient currently on mechanical vent unable to participate in decision-making. Not clear if she will regain ability to participate. Krishan is designated as healthcare surrogate. * Goals: 08/28/17 Patient appropriately tearful at times. He appears to have reasonable understanding of conditions and possible trajectories going forward. He understands risks of complications going forward. He understands the longer patient remains hospitalized more debilitated and weak she will become, and more likely she would require SNF and possible long-term placement. We did review possibility of tracheostomy, PEG and longer-term ventilation and support if patient does not show significant improvement in the next few days. He is not certain that she would want to proceed with the tracheostomy and PEG. He wishes to see how she does in the next few days and will make further decisions pending clinical course. Wants to continue maximized available medical treatment, monitoring course. He is open to ongoing discussion with providers as course evolves. 08/29 no changes, will cont to monitor pt course, open to ongoing discussions 08/30/17 patient has been requested to withdraw life support today and transition to comfort focus. He feels she would not want to continue on life support feels suffering is being prolonged. He indicates patient would not want to be continued on ventilator and requests comfort measures. Exhibit signed and placed in chart. Comfort orders entered for pre-withdrawal, time of withdrawal and post withdrawal. Discussed with nurse and medical attending. * CODE STATUS: ALT code intubation only * SYMPTOMS: --Dyspnea-patient with long-standing COPD history. Not able to wean off ventilator currently requiring significant sedation for vent synchrony; possible may require tracheostomy if unable to wean off the ventilator, and goals are aggressive --Malnutrition-chronic, albumin 2.6. Patient now with OG tube in place; order to begin tube feeding. May require longer term feeding tube if unable to wean off ventilator, if goals aggressive * Palliative care will continue to follow during hospital course as condition evolves, to assist patient/decision-maker with understanding of medical conditions, weighing benefits/burdens of treatment options, for clarification of goals of treatment. Additionally will assist with any symptoms of palliative concern Time Spent Total Floor Time (mins): 40 (Chart review, PE phone calls and discussions with family, discussions with critical care attending and primary nurse) Attestation To help prompt me to consider important information that might be impacting today's encounter and assessment, information from prior notes written by myself or my colleagues may have been "brought forward" into today's note. My signature on this note, however, is an attestation that I personally performed the exam, history, and/or decision-making noted today, and, unless otherwise indicated, the interactions with patient, family, and staff as well as the review of records all occurred today. I also attest that the listed assessment and stated plan reflect my best clinical judgment today based on the combination of historical information, prior notes, and today's exam/ interactions. When time spent is documented, it refers only to time spent today by the signer, or if indicated, combined time spent today by collaborating physician/nurse practitioner. Mouna Henson Aug 30, 2017 16:59
[2017-08-30] MEDS ORDERED: LORazepam 2 MG/ML VIAL IV PUSH ONE ×2 (17:15→17:45)
[2017-08-30] MEDS ORDERED: HYOSCYAMINE 0.5 MG/ML AMP IV PUSH ONE (17:15)
[2017-08-30] MEDS ORDERED: HYDROmorphone HCL PF 2 MG/ML VIAL IV PUSH ONE ×2 (17:15→17:45)
[2017-08-30] MEDS ORDERED: FUROSEMIDE 20 MG/2 ML VIAL IV PUSH PRN (17:45)
[2017-08-30] MEDS ORDERED: LORazepam 2 MG/ML VIAL IV PUSH PRN ×2 (17:45)
[2017-08-30] MEDS ORDERED: HYDROmorphone HCL PF 2 MG/ML VIAL IV PUSH PRN ×2 (17:45)
[2017-08-30] MEDS ORDERED: HYOSCYAMINE 0.5 MG/ML AMP IV PUSH PRN (17:45)
[2017-08-30] MEDS ORDERED: LORazepam 2 MG/ML VIAL IV PUSH SCH (20:00)
[2017-08-30] MEDS ORDERED: HYDROmorphone HCL PF 2 MG/ML VIAL IV PUSH SCH (20:00)
--- NOTE | 2017-08-30 20:41 | HHI.PR ---
Subjective Remarks 66 YOWF with COPD,Ch Leg wound, DM Was not making any progress decided for withdrawl Objective Vital Signs Vital Signs Date Time Temp Pulse Resp B/P (MAP) Pulse Ox O2 Delivery O2 Flow Rate FiO2 08/30/17 18:50 Nasal Cannula 2 08/30/17 18:50 Nasal Cannula 2.00 08/30/17 18:00 148 08/30/17 16:00 30 08/30/17 16:00 132 08/30/17 16:00 98.9 140 12 136/80 (98) 96 08/30/17 14:59 94 30 08/30/17 12:00 30 08/30/17 12:00 98.9 140 12 89/50 (63) 96 08/30/17 12:00 132 08/30/17 11:36 95 30 08/30/17 10:00 132 08/30/17 08:08 94 30 08/30/17 08:00 132 08/30/17 08:00 98.9 132 12 102/80 (87) 96 08/30/17 06:00 136 08/30/17 04:00 98.9 132 12 136/80 (98) 96 08/30/17 04:00 30 08/30/17 04:00 132 08/30/17 02:56 95 30 08/30/17 02:00 130 08/30/17 00:00 98.4 128 12 137/94 (108) 95 08/30/17 00:00 128 08/30/17 00:00 28 08/29/17 23:13 100 30 08/29/17 22:00 82 I/O 08/29/17 08/29/17 08/29/17 08/30/17 08/30/17 08/30/17 07:00 15:00 23:00 07:00 15:00 23:00 Intake Total 464 ml 450 ml 484 ml 650 ml 400 ml Output Total 350 ml 375 ml 400 ml 300 ml Balance 114 ml 450 ml 109 ml 250 ml 100 ml Intake Oral 0 ml IV Total 200 ml 450 ml Tube Feeding 204 ml 484 ml 650 ml 400 ml Tube Irrigant 60 ml Output Urine Total 350 ml 375 ml 400 ml 300 ml Stool Total 0 ml # Bowel Movements 0 0 Result Diagram: 08/30/1744408/30/17444 Objective Remarks GENERAL:WBWN WF, On vent, sedated SKIN: Warm and dry. HEAD: Normocephalic. EYES: No scleral icterus. No injection or drainage. NECK: Supple, trachea midline. No JVD or lymphadenopathy. CARDIOVASCULAR: Regular rate and rhythm without murmurs, gallops, or rubs. RESPIRATORY: Breath sounds equal bilaterally. No accessory muscle use. GASTROINTESTINAL: Abdomen soft, non-tender, nondistended. MUSCULOSKELETAL: No cyanosis, or edema. BACK: Nontender without obvious deformity. No CVA tenderness. A/P Assessment and Plan IMPRESSION: 1. Chronic obstructive pulmonary disease exacerbation. 2. Bronchitis. 3. Right leg wound. 4. Chronic respiratory insufficiency 5. VDRF PLAN: Comfort care will decides hospice if she makes night prognosis poor Sameer Villa MD Aug 30, 2017 20:41
--- NOTE | 2017-08-30 21:14 | EKG ---
Date Performed: 08/30/2017 Time Performed: 05:44:14 PTAGE: 67 years EKG: Sinus tachycardia. Possible anterior infarct - age undetermined Lateral T wave changes Low QRS voltages in limb leads Abnormal ECG PREVIOUS TRACING : 08/23/2017 10.23 Since the previous tracing, no significant change noted DOCTOR: Rich Cary Interpretating Date/Time 08/30/2017 21:12:15
--- NOTE | 2017-09-02 06:40 | HHI.DS ---
Summary Note Date of : Aug 30, 2017 Time Of : 2026 Admission Date Aug 23, 2017 at 16:39 Admitting Diagnosis COPD EXACERBATION, POSS PNA Diagnosis at Time of : (1) COPD (chronic obstructive pulmonary disease) ICD Code: J44.9 - Chronic obstructive pulmonary disease, unspecified (2) Anxiety ICD Code: F41.9 - Anxiety disorder, unspecified (3) Open leg wound ICD Code: S81.809A - Unspecified open wound, unspecified lower leg, initial encounter (4) Hyperglycemia ICD Code: R73.9 - Hyperglycemia, unspecified (5) Tachycardia ICD Code: R00.0 - Tachycardia, unspecified Brief History The patient was admitted on 08/23 from [facility], with complaints cough and shortness of breath over the past 3 days, and a 101 low-grade fever. The patient patient had reported at that time a productive cough, yellowish sputum. The patient's has a history of severe COPD and upon presentation to the ED ,she stated that she does not use oxygen at home. She was admitted under [facility] Dr. Vogt. This a.m., the patient was noted to have extreme respiratory distress, sinus tachycardia. The patient had received methylprednisolone a.m. dose and DuoNeb bronchodilator treatment, and BiPAP with no improvement. Halicat was initiated, upon my arrival the patient was noted to be tachypneic ,significantly tachycardic and hypertensive. Discussion with Dr. Vogt, the patient and were informed of the situation, she requested to be intubated at this time. The patient was emergently intubated uneventfully, the patient was transferred to ICU. CBC/BMP: 08/30/17 0445 08/30/17 0445 Imaging Last Impressions Chest X-Ray 08/26/17 0000 Signed Impressions: Service Date/Time: Saturday, August 26, 2017 09:39 - CONCLUSION: Interval placement of an endotracheal tube which appears appropriately positioned. No evidence of acute cardiopulmonary disease. Jennifer Holcomb MD Hospital Course The patient was admitted on 08/23 from [facility], with complaints cough and shortness of breath over the past 3 days, and a 101 low-grade fever. The patient patient had reported at that time a productive cough, yellowish sputum. The patient's has a history of severe COPD and upon presentation to the ED ,she stated that she does not use oxygen at home. She was admitted under [facility] Dr. Vogt. This a.m., the patient was noted to have extreme respiratory distress, sinus tachycardia. The patient had received methylprednisolone a.m. dose and DuoNeb bronchodilator treatment, and BiPAP with no improvement. Halicat was initiated, upon my arrival the patient was noted to be tachypneic ,significantly tachycardic and hypertensive. Discussion with Dr. Vogt, the patient and were informed of the situation, she requested to be intubated at this time. The patient was emergently intubated uneventfully, the patient was transferred to ICU. 08/27: Persistent severe bronchospasm. We are able to blow off CO2 but she has severe bronchospasm still. I welcome input from Dr. Villa. 08/28: CXR clear now, hyperinflated. Airway pressures improving. Tight bronchospasm persists. 08/29: no improvements. remains sedated on full vent support. 08/30: more tachycardic today. wbc uptrending, but afebrile. BNP severely elevated. no overall improvements. comfort measures instituted by palliative. patient . Teja Reyes MD Sep 02, 2017 06:40
== END 2017-08-30 20:27 | disposition expired | DRG 208 ==
LOC: NEPE 10:06 → NEDA 16:10 → OBSVTOIN 16:39 → NEPHCDU 17:39 → N04B 08-25 14:08 → N03B 08-26 09:54
PROVIDERS: ADMIT Surgery Surgical Critical Care; ATTEND Surgery Surgical Critical Care
PROC: 5A1945Z Respiratory Ventilation, 24-96 Consecutive Hours (ICD-10-PCS; principal; 2017-08-26)
PROC: 0BH17EZ Insertion of Endotracheal Airway into Trachea, Via Natural or Artificial Opening (ICD-10-PCS; 2017-08-26)
DX: J44.1 Chronic obstructive pulmonary disease with (acute) exacerbation (principal); J96.01 Acute respiratory failure with hypoxia; J18.9 Pneumonia, unspecified organism; E46 Unspecified protein-calorie malnutrition; I95.9 Hypotension, unspecified; J96.02 Acute respiratory failure with hypercapnia; I48.91 Unspecified atrial fibrillation; I07.1 Rheumatic tricuspid insufficiency; S81.801A Unspecified open wound, right lower leg, initial encounter; J44.0 Chronic obstructive pulmonary disease with (acute) lower respiratory infection; F41.9 Anxiety disorder, unspecified; R00.0 Tachycardia, unspecified; Z51.5 Encounter for palliative care; Z66 Do not resuscitate; R60.9 Edema, unspecified; D64.9 Anemia, unspecified; J20.9 Acute bronchitis, unspecified; F17.210 Nicotine dependence, cigarettes, uncomplicated; R73.9 Hyperglycemia, unspecified; Z88.2 Allergy status to sulfonamides; X58.XXXA Exposure to other specified factors, initial encounter; Z79.4 Long term (current) use of insulin; Z79.52 Long term (current) use of systemic steroids; Z79.899 Other long term (current) drug therapy; Z92.3 Personal history of irradiation; Z88.5 Allergy status to narcotic agent; Z85.3 Personal history of malignant neoplasm of breast; Z87.442 Personal history of urinary calculi; T38.0X5A Adverse effect of glucocorticoids and synthetic analogues, initial encounter
CPT/HCPCS: 31500; 36600; 71045; 80048; 80053; 81001; 82550; 82805; 82948; 83605; 83735; 83880; 84484; 85007; 85025; 85027; 85610; 85730; 87040; 87070; 87205; 87449; 87641; 87804; 93005; 94003; 94640; 94664; 94667; 96365; 96367; 96375; J0456; J0696; J1170; J1650; J1815; J1940; J1980; J2060; J2370; J2930; J3010; J3475; J7040; J7050; J7613